=== PATIENT | female | born 1955 | race Caucasian/White ===

== ENCOUNTER 2020-05-08 16:11 | Outpatient (REF) | payer MEDICARE, MEDICAID, SELFPAY | END 2020-05-08 16:12 | disposition home or self-care (01) | LOC: HO.LAB 16:11 | PROVIDERS: PCP Internal Medicine; Visit Provider Internal Medicine | DX: Z20.828 Contact with and (suspected) exposure to other viral communicable diseases (principal) | CPT/HCPCS: C9803; U0003 ==

== ENCOUNTER 2020-05-14 12:07 | Day surgery (SDC) | payer MEDICARE, MEDICAID, SELFPAY ==
[2020-05-07 09:08] VITALS: BMI 32.1
[2020-05-14 12:21] VITALS: BP 114/64; PULSE 120; RESP 18; TEMP 36.1; O2SAT 99
[2020-05-14 12:29] LABS: Glucose, Whole Blood 205 mg/dL (60-115)
--- NOTE | 2020-05-14 13:34 | HO.ANESPROP2 ---
[facility] Past Medical History Medical History (Updated 05/07/20 @ 09:14 by Alexandra Worley) Arthritis CAD (coronary artery disease) COPD (chronic obstructive pulmonary disease) CVA (cerebral vascular accident) Diabetes Elevated cholesterol GERD (gastroesophageal reflux disease) History of headache HTN (hypertension) Hx of osteopenia Hx of solitary pulmonary nodule On beta manolo at home Surgical History Surgical History (Updated 05/07/20 @ 09:14 by Alexandra Worley) H/O colonoscopy History of PTCA Hx of appendectomy Hx of cataract extraction Hx of section Hx of cholecystectomy Hx of heart artery stent Social History Social History (Updated 05/07/20 @ 09:17 by Alexandra Worley) Smoking Status: Former smoker Tobacco Type: Cigarette Packs Per Day: 1 Cigarettes Per Day: 20.0 Years Smoked: 30 Smoked in Last 30 Days: No Smoking Quit Date: age 39 Advance Directives Information Provided: No Meds Allergies Allergy/AdvReac Type Severity Reaction Status Date / Time morphine [MORPHINE] Allergy Severe HIVES AND Verified 05/07/20 09:17 DIFFICULTY BREATHING, dyspnea, rash Penicillins Allergy Intermediate ITCHING Verified 05/07/20 09:17 Home Medications Medication Instructions Recorded Confirmed Type albuterol sulfate [ProAir HFA] 2 puff INHALATION Q4-6H PRN 05/07/20 05/07/20 History amitriptyline 50 mg PO BEDTIME 05/07/20 05/07/20 History aripiprazole 5 mg PO DAILY 05/07/20 05/07/20 History aspirin 81 mg PO DAILY 05/07/20 05/07/20 History cholecalciferol (vitamin D3) 50 mcg PO DAILY 05/07/20 05/07/20 History [Vitamin D3] docusate sodium 100 mg PO BID 05/07/20 05/07/20 History gabapentin 600 mg PO BEDTIME 05/07/20 05/07/20 History insulin glargine [Lantus Solostar 45 unit SUBCUT QPM 05/07/20 05/07/20 History U-100 Insulin] insulin lispro [Humalog KwikPen 9 unit SUBCUT TID 05/07/20 05/07/20 History Insulin] melatonin 5 mg PO BEDTIME PRN 05/07/20 05/07/20 History metformin 500 mg PO BID 05/07/20 05/07/20 History metoprolol tartrate 50 mg PO BID 05/07/20 05/07/20 History sennosides [senna] 8.6 mg PO BEDTIME 05/07/20 05/07/20 History sitagliptin [Januvia] 100 mg PO DAILY 05/07/20 05/07/20 History tiotropium bromide [Spiriva with 1 cap INHALATION DAILY 05/07/20 05/07/20 History HandiHaler] valsartan 160 mg PO DAILY 05/07/20 05/07/20 History Exam Exam Date and Time: May 14, 2020 1334 Height,Weight and Vital Signs: Height 5 ft Weight 74.5 kg Last Vital Signs Temp 97.0 F 05/14/20 12:21 Pulse 120 H 05/14/20 12:21 Resp 18 05/14/20 12:21 BP 114/64 05/14/20 12:21 Pulse Ox 99 05/14/20 12:21 Pertinent Lab Results Pertinent Lab Results: Laboratory Tests 05/14/20 12:23 POC Glucose 205 H Airway Mallampati Class: III TM Dist: >3cm Neck ROM: Limited Loose/Missing/Broken Teeth: Yes (Missing teeth. Overbite) Heart: RRR Assessment and Plan Assessment Anesthesia Assessment: Anesthesia Plan Discussed Final Anesthetic Review NPO: Yes ASA Class: III Final Preanesthetic Review: Consent Obtained/Reviewed Anesthetic Plan Anesthetic Plan: MAC: Disposition: Standard PACU
--- NOTE | 2020-05-14 13:40 | P.HPSUR_ITS ---
Pre-Procedural Eval Section B Chief Complaint: Constipation Relevant Family History (Specify if Yes): No Relevant Social History: None Present Medications: see Short Stay Collaborative assessment Medical History: Significant History (asthma, COPD, Dm, CAD, abn LFT) History of Previous Operations: Relevant previous surgery/procedure and date(s) (appendectomy, choelcystectomy) Allergies: Allergies Allergy/AdvReac Type Severity Reaction Status Date / Time morphine [MORPHINE] Allergy Severe HIVES AND Verified 05/07/20 09:17 DIFFICULTY BREATHING, dyspnea, rash Penicillins Allergy Intermediate ITCHING Verified 05/07/20 09:17 Review of Systems Sugical H&P ROS: Negative: Constitution, Cardiovascular, Respiratory, Neurological, Psychiatric, Hem-Onc, Allergic/Immunologic, Gastrointestinal, Genitourinary, Musculoskeletal, Integumentary, Endocrine and Eyes/Ears /Nose/Throat Exam Surgical H&P Exam: Normal: HEENT, Normal: Heart, Normal: Lungs, Normal: Extremities, Normal: Abdomen, Normal: Skin and Normal: Neurological Plan Diagnosis/Plan: Unchanged Patient has been examined and remains a candidate for the planned procedure
--- NOTE | 2020-05-14 14:20 | PM.OP ---
Brief Operative Note Date of Service: 05/14/20 Pre-op diagnosis: constipation Post-op diagnosis: same Procedure: see op note Surgeon: Ludy Tovar MD Anesthesia: MAC Estimated blood loss (mL): 0 Condition: stable Disposition: PACU
--- NOTE | 2020-05-14 14:21 | W.PM.OPN ---
Operative Note Operative Note Date of Service: 05/14/20 Narrative: Operative Information Procedure Description: Colonoscopy COLONOSCOPY Instrument: Olympus variable stiffness pediatric scope 190L Colonoscopy Monitoring: Vital signs and clinical assessment, continuous EKG monitoring, Pulse oximetry, Carbon Dioxide monitoring and blood pressure monitoring were done throughout the procedure. Colon withdrawal time was 9 minutes. Procedure: The patient was placed in the left lateral decubitis position and pre-procedure medications were administered. After a digital rectal examination of the ano-rectum, the video colonoscope was inserted into the rectum and advanced through the colon to the cecum. The colonoscope was slowly withdrawn in a retrograde panoramic fashion and the colon mucosa was carefully examined including a retroflexed view of the rectum. Findings and interventions are described below. Procedure Difficulty: slightly difficult Findings: Terminal Ileum-not intubated due to fecal debris making it hard to identify Cecum: abnormal scarred appearing mucosa, with granularity, bx taken Ascending Colon: abnormal scarred appearing mucosa, with granularity Transverse Colon -normal Descending Colon:normal Sigmoid Colon: normal Rectum: Retroflexion with small internal hemorrhoids, grade I Anorectum - normal There was marked absence of peristalsis, and colon appeared redundant. Colon preparation: [place] Bowel Preparation Scale Right colon; 1 Transverse colon: 0 Left colon; 0 (0 = Unprepared colon segment with mucosa not seen due to solid stool that cannot be cleared. 1 = Portion of mucosa of the colon segment seen, but other areas of the colon segment not well seen due to staining, residual stool and/or opaque liquid. 2 = Minor amount of residual staining, small fragments of stool and/or opaque liquid, but mucosa of colon segment seen well. 3 = Entire mucosa of colon segment seen well with no residual staining, small fragments of stool or opaque liquid) Impression and Post Procedure Diagnosis: redundant colon atrophic mucosa right colon, colonic inertia Plan: High fiber diet leaflet Avoid straining at stool, epsom salts and sitz bath, anusol supps or cream prn Repeat Colonoscopy in 6-12 months, may need 2 d clears She may benefit from motegrity for her constipation, may have a colonopathy from her DM Above findings were reviewed with the patient and relevant handouts were provided if indicated.
[2020-05-14 14:26] VITALS: BP 99/52; PULSE 103; RESP 16; TEMP 36.5; O2SAT 96
[2020-05-14 14:41] VITALS: BP 91/56; PULSE 99; RESP 22; TEMP 36.5; O2SAT 96
--- NOTE | 2020-05-15 09:43 | HO.POSTANES ---
Post Anesthesia Evaluation Post Anesthesia Evaluation Vital Signs: Case done on 05/14 and discharge was done on paper now being transferred to computer, Vitals were stable. Anesthesia: Monitored Mental Status: Awake Pain Control: Satisfactory Nausea/Vomiting: None Hydration: Adequate Anesthesia-Related Issues: No Anes. Related Issues
== END 2020-05-14 15:17 | disposition home or self-care (01) ==
PROVIDERS: PCP Internal Medicine; Visit Provider Internal Medicine Gastroenterology
PROC: 0DJD8ZZ Inspection of Lower Intestinal Tract, Via Natural or Artificial Opening Endoscopic (ICD-10-PCS; CPT 45378; principal; 2020-05-14 13:20)
DX: K59.00 Constipation, unspecified (principal); Q43.8 Other specified congenital malformations of intestine; K64.0 First degree hemorrhoids; K63.89 Other specified diseases of intestine; R94.5 Abnormal results of liver function studies; J44.9 Chronic obstructive pulmonary disease, unspecified; I25.10 Atherosclerotic heart disease of native coronary artery without angina pectoris; Z98.61 Coronary angioplasty status; I10 Essential (primary) hypertension; E11.9 Type 2 diabetes mellitus without complications; K21.9 Gastro-esophageal reflux disease without esophagitis; Z79.4 Long term (current) use of insulin; Z79.51 Long term (current) use of inhaled steroids; Z79.82 Long term (current) use of aspirin; Z79.899 Other long term (current) drug therapy; Z88.8 Allergy status to other drugs, medicaments and biological substances; Z86.73 Personal history of transient ischemic attack (TIA), and cerebral infarction without residual deficits; Z87.891 Personal history of nicotine dependence
CPT/HCPCS: 45380; 82947; 88305

== ENCOUNTER 2020-05-28 16:59 | Outpatient (REF) | payer MEDICARE, MEDICAID, SELFPAY | END 2020-05-28 17:00 | disposition home or self-care (01) | LOC: HO.LAB 16:59 | PROVIDERS: PCP Internal Medicine; Visit Provider Internal Medicine | DX: Z20.828 Contact with and (suspected) exposure to other viral communicable diseases (principal) | CPT/HCPCS: C9803; U0003 ==

== ENCOUNTER 2020-07-22 11:53 | Outpatient (REF) | payer MEDICARE, MEDICAID, SELFPAY ==
--- NOTE | 2020-07-22 12:00 | XR_ITS ---
EXAMINATION: XR HIP, BILATERAL CLINICAL INFORMATION: Pain in bilateral hips. COMPARISON: Bilateral hip 03/21/2020 TECHNIQUE: Two views each hip. FINDINGS: RIGHT HIP: There is no visible fracture, dislocation or subluxation seen. No bony erosive changes. The soft tissues are normal. LEFT HIP: There is no visible acute fracture, dislocation or subluxation seen. The soft tissues are normal. XR/XR hip LT min 2V IMPRESSION: Unremarkable bilateral hip exam. No change from previous study 03/21/2020.
--- NOTE | 2020-07-22 12:00 | XR_ITS ---
EXAMINATION: XR HIP, BILATERAL CLINICAL INFORMATION: Pain in bilateral hips. COMPARISON: Bilateral hip 03/21/2020 TECHNIQUE: Two views each hip. FINDINGS: RIGHT HIP: There is no visible fracture, dislocation or subluxation seen. No bony erosive changes. The soft tissues are normal. LEFT HIP: There is no visible acute fracture, dislocation or subluxation seen. The soft tissues are normal. XR/XR hip RT min 2V IMPRESSION: Unremarkable bilateral hip exam. No change from previous study 03/21/2020.
[2020-07-22 14:37] LABS: Alanine Aminotransferase 49 U/L (0-31); Albumin Level 3.7 g/dL (3.5-5.0); Alkaline Phosphatase 116 U/L (39-117); Anion Gap 15 (12-20); Aspartate Amino Transferase 43 U/L (5-31); Bilirubin Total 0.4 mg/dL (0.0-1.0); Blood Urea Nitrogen 17 mg/dL (9-16); Calcium 9.7 mg/dL (8.4-10.2); Carbon Dioxide 29 mmol/L (22-29); Chloride 100 mmol/L (96-108); Cholesterol 81 mg/dL; Estimated Glomerular Filt Rate > 60; Glucose Fasting 173 mg/dL (60-99); HDL Cholesterol 27 mg/dL; LDL Cholesterol Calculated 36 mg/dl; Potassium 4.4 mmol/l (3.3-5.1); Sodium 140 mmol/L (135-145); Total Protein 7.4 g/dL (6.5-8.0); Triglycerides 93 mg/dL
[2020-07-22 14:39] LABS: Creatinine Urine 168.42 mg/dL; Microalbum/Creatinine Ratio Ur 42.1 ug/mg cr
== END 2020-07-22 11:54 | disposition home or self-care (01) ==
LOC: HO.LAB 11:53
PROVIDERS: PCP Internal Medicine; Visit Provider Internal Medicine
DX: M25.552 Pain in left hip (principal); M25.551 Pain in right hip; E11.9 Type 2 diabetes mellitus without complications; E78.5 Hyperlipidemia, unspecified
CPT/HCPCS: 36415; 73502; 80053; 80061; 82043

== ENCOUNTER → 2020-08-16 14:38 | Outpatient (REF) | payer MEDICARE, MEDICAID, SELFPAY ==
--- NOTE | 2020-08-16 15:00 | CA_ITS ---
Transthoracic Echocardiogram Patient (Last, First, Middle): Lillie Clemons, Gender: Female Date of : 1955 Age: 65 Procedure Date: 08/16/2020 Procedure Type: Transthoracic Echocardiogram Location: OP Height: 193.04 cm Weight: 72.58 kg BSA: 2.02 m2 Heart Rate: bpm BP: 122 / 60 mmHg Register In [place]cery: Referring MD: Gonzales Rutledge MD Symptoms: I25.10 ASCD Z95.5 STENTED COR ART, I10 HTN I51.9 DIASTOLIC D Study Quality: Good ECG Rhythm: Sinus Conclusions: - Normal left ventricular size and systolic function. - Abnormal diastolic function is noted. Spectral Doppler is indicative of an impaired relaxation filling pattern. Elevated filling pressures. - There is mild aortic valve stenosis. There is mild aortic valve regurgitation. - Mild pulmonary hypertension is present. Findings Left Ventricle Normal left ventricular size and systolic function. There is mildly increased left ventricular wall thickness. The visually estimated ejection fraction is between 60-65%. There is no evidence of regional wall motion abnormalities. Abnormal diastolic function is noted. Spectral Doppler is indicative of an impaired relaxation filling pattern. Elevated filling pressures. Right Ventricle Normal right ventricular cavity size and systolic function. Atria Both atria are normal in size. There is no evidence of interatrial shunt by color Doppler. Aortic Valve There is a normal trileaflet aortic valve. There is mild calcification of the aortic valve. There is mild aortic valve stenosis. There is mild aortic valve regurgitation. Mitral Valve Normal mitral valve structure and function. There is no mitral valve regurgitation. There is no mitral valve stenosis. Pulmonic Valve The pulmonic valve is likely normal. Tricuspid Valve Normal tricuspid valve structure and function. There is mild tricuspid valve regurgitation. Normal right atrial pressure. Mild pulmonary hypertension is present. Great Vessels All visible segments of the aorta are normal in size. The pulmonary artery was not well visualized. Venous The inferior vena cava is normal in size and collapses greater than 50% with inspiration. Pericardium/Pleural There is no evidence of pericardial effusion. Prior Study Comparison Changes noted compared to prior study dated: 08/05/2016. Mild , mild AR, mild LVH and elevated filling pressures. Mild pulmonary hypertension. Measurements 2D Linear Measurements IVSd: 1.20 0.6-0.9/0.6-1.0 cm LVIDd: 4.06 3.9-5.3/4.2-5.9 cm LVIDd Index: 2.01 2.4-3.2/2.2-3.1 cm/m2 LVIDs: 2.71 2.0-3.6 cm LVPWd: 1.20 0.7-1.1 cm Ao Root: 2.80 2.1-3.5 cm LA Diam: 3.80 2.7-3.8/3.0-4.0 cm LAIDs Index: 1.88 1.5-2.3 cm/m2 LV Mass: 210.77 67-162/88-224 g LV Mass Index: 104.34 43-95/49-115 g/m2 LVOT Diam: 2.00 3.0+(-)1.3 cm Mitral Valve MV Pk E: 0.67 MV PK A: 1.21 MV Decel Time: 92.00 E/A: 0.60 E'Lateral: 3.29 E'Medial: 4.74 E/E' Med: 14.10 E/E' Lat: 20.30 PHT: 27.00 MVA PHT: 8.15 Decel [place]: 7.24 Aortic Valve AoV Pk Esvin: 2.04 AoV Mn Esvin: 1.36 AoV VTI: 0.37 AoV Pk Grad: 17.00 Aov Mn Grad: 9.00 LUCÍA Cont.VTI: 1.65 AI Pk Esvin: 4.14 AI [place]: 4.56 LVOT LVOT Pk Esvin: 0.98 LVOT Mn Esvin: 0.63 LVOT VTI: 0.19 LVOT Pk Grad: 4.00 LVOT Mn Grad: 2.00 LVOT Diam: 2.00 LVOT Area: 3.14 Diastolic Function MV Pk E: 0.67 MV Pk A: 1.21 E/A: 0.60 E'Medial: 4.74 E/E' Med: 14.10 E' Laterial: 3.29 E/E' Lat: 20.30 Tricuspid Valve TR Pk Esvin: 2.86 TR Pk Grad: 33.00 RA Press: 3.00 RVSP: 36.00 Great Vessels Aorta Ao Root-2D: 2.80 2.0-3.7 cm Ao Asc: 3.00 2.1-3.4 cm Pulmonary Valve PV Pk Esvin: 0.84 Peak PV Grad: 3.00 Updated in Other Vendor System with Status of Final David Meléndez MD electronically signed on 08/18/2020 2:15:18 PM with status of Final
== END ==
LOC: HO.CARD 14:38
PROVIDERS: Visit Provider Internal Medicine
DX: I11.0 Hypertensive heart disease with heart failure (principal); I11.9 Hypertensive heart disease without heart failure; Z95.5 Presence of coronary angioplasty implant and graft
CPT/HCPCS: 93306

== ENCOUNTER → 2020-09-02 13:29 | Outpatient (BNVA) | payer MEDICARE, MEDICAID, SELFPAY | PROVIDERS: PCP Internal Medicine; Visit Provider Internal Medicine ==

== ENCOUNTER → 2020-09-26 12:00 | Outpatient (BNVA) | payer MEDICARE, MEDICAID, SELFPAY | PROVIDERS: PCP Internal Medicine; Visit Provider Internal Medicine Endocrinology, Diabetes & Metabolism | DX: E11.65 Type 2 diabetes mellitus with hyperglycemia (principal); Z79.4 Long term (current) use of insulin; E11.42 Type 2 diabetes mellitus with diabetic polyneuropathy; E78.5 Hyperlipidemia, unspecified; I10 Essential (primary) hypertension; E04.2 Nontoxic multinodular goiter | CPT/HCPCS: 82947; 99212 ==

== ENCOUNTER → 2020-10-24 14:35 | Outpatient (BNVA) | payer MEDICARE, MEDICAID, SELFPAY | PROVIDERS: PCP Internal Medicine; Referring Provider Internal Medicine; Visit Provider Internal Medicine | DX: I25.10 Atherosclerotic heart disease of native coronary artery without angina pectoris (principal); I10 Essential (primary) hypertension; E11.8 Type 2 diabetes mellitus with unspecified complications; I35.0 Nonrheumatic aortic (valve) stenosis | CPT/HCPCS: 93005; 99212 ==

== ENCOUNTER → 2020-11-08 14:26 | Outpatient (BNVA) | payer MEDICARE, MEDICAID, SELFPAY | PROVIDERS: PCP Internal Medicine; Visit Provider Internal Medicine Endocrinology, Diabetes & Metabolism | DX: E11.65 Type 2 diabetes mellitus with hyperglycemia (principal); E11.42 Type 2 diabetes mellitus with diabetic polyneuropathy; Z79.4 Long term (current) use of insulin; E78.5 Hyperlipidemia, unspecified; I10 Essential (primary) hypertension; E04.2 Nontoxic multinodular goiter | CPT/HCPCS: Q3014 ==

== ENCOUNTER → 2020-12-27 10:07 | Outpatient (BNVA) | payer MEDICARE, MEDICAID, SELFPAY | PROVIDERS: PCP Internal Medicine; Visit Provider Internal Medicine Endocrinology, Diabetes & Metabolism | DX: E11.65 Type 2 diabetes mellitus with hyperglycemia (principal); E11.42 Type 2 diabetes mellitus with diabetic polyneuropathy; E78.5 Hyperlipidemia, unspecified; E04.2 Nontoxic multinodular goiter; I10 Essential (primary) hypertension; Z79.4 Long term (current) use of insulin | CPT/HCPCS: 82947; 99212 ==

== ENCOUNTER 2021-03-12 14:02 | Outpatient (REF) | payer MEDICARE, MEDICAID, SELFPAY ==
--- NOTE | ~2021-03-12 | XR_ITS ---
EXAMINATION: XR HIP, RIGHT CLINICAL INFORMATION: Pain right hip. COMPARISON: None TECHNIQUE: Two views of the right hip. FINDINGS: The right hip joint space is maintained normal. No visible fracture, dislocation or loose body seen. There are small enthesophytes along the right greater trochanter. The soft tissues are normal. XR/XR hip RT min 2V IMPRESSION: Unremarkable right hip exam.
== END 2021-03-12 14:03 | disposition home or self-care (01) ==
LOC: HO.HMGCX 14:02
PROVIDERS: PCP Internal Medicine; Visit Provider Internal Medicine
DX: Z13.89 Encounter for screening for other disorder (principal)
CPT/HCPCS: 73502

== ENCOUNTER 2021-03-26 15:55 | Inpatient (IN) | payer OTHER, SELFPAY ==
[2021-03-26] VITALS (12 sets, daily range): BP systolic 105–153; BP diastolic 52–77; PULSE 97–110; RESP 20–36; TEMP 36.8–37.6; O2SAT 60–100; BMI 32.2
--- NOTE | ~2021-03-26 | XR_ITS ---
EXAMINATION: XR CHEST CLINICAL INFORMATION: Dyspnea COMPARISON: Previous chest x-rays most recent from earlier the same day TECHNIQUE: Frontal view of the chest was obtained. FINDINGS: The cardiac and mediastinal contours are stable. The lung volumes are low. There is bilateral diffuse airspace disease, left greater than right. This does not appear appreciably changed from chest x-ray from earlier the same day however is increased from yesterday's exam. There is no pleural effusion or pneumothorax. Bony structures are unremarkable. XR/XR chest 1V IMPRESSION: Bilateral diffuse airspace disease, left greater than right, not appreciably changed from earlier today.
--- NOTE | ~2021-03-26 | CT_ITS ---
EXAMINATION: CT HEAD WITHOUT CONTRAST CLINICAL INFORMATION: Aphasia. COMPARISON: None TECHNIQUE: Contiguous axial imaging was performed from the skull base to vertex without intravenous administration of contrast. Limited study with motion artifacts. This CT examination was performed using dose optimization techniques as appropriate, variously including the following: *Automated exposure control *Adjustment of mA and/or kV according to patient size (this includes techniques or standardized protocols for targeted exams where dose is matched to indication/reason for exam; i.e. extremities or head) *Use of iterative reconstruction technique DLP: 533 mGy-cm FINDINGS: There is no evidence of acute intracranial hemorrhage or territorial infarction. No abnormal mass effect or midline shift is seen. [place] to white matter differentiation is well preserved. No extra-axial fluid collections are identified. Generalized parenchymal volume loss noted with concordant ex vacuo dilatation of the ventricles and mild small vessel ischemic changes. The osseous structures and soft tissues are normal. The mastoid air cells and visualized portions of the paranasal sinuses are well aerated. CT/CT head/brain wo con IMPRESSION: No acute intracranial pathology.
--- NOTE | ~2021-03-26 | XR_ITS ---
EXAMINATION: XR CHEST CLINICAL INFORMATION: Hypoxia COMPARISON: Previous chest x-ray 03/29/2021 TECHNIQUE: Frontal view of the chest was obtained. FINDINGS: There is an endotracheal tube with tip 4 cm above the eileen. There is a nasogastric tube with tip projecting over the proximal stomach. There is a right jugular line tip projecting over the SVC. The cardiac and mediastinal contours are stable. The lumbar are low. There is diffuse airspace disease, probably not appreciably changed from 03/29/2021 exam. There is no pleural effusion. There is no pneumothorax. No acute bone abnormality is seen. XR/XR chest 1V IMPRESSION: Satisfactory position of support line and tubes. No change in bilateral diffuse airspace disease.
--- NOTE | ~2021-03-26 | XR_ITS ---
EXAMINATION: XR ABDOMEN KUB CLINICAL INDICATION: No bowel sounds. OG tube placement. COMPARISON: 07/07/2016 TECHNIQUE: AP view of the abdomen. FINDINGS: Enteric tube terminates in the stomach. No dilated loops of bowel. Paucity of bowel gas. Large volume of stool throughout the colon. Catheter overlies the pelvis. Right upper quadrant surgical clips. Patchy opacities at the left lung base. Degenerative changes of the spine. XR/XR KUB IMPRESSION: Nonobstructive bowel gas pattern. Large colonic stool burden. Enteric tube terminates over the stomach.
--- NOTE | ~2021-03-26 | XR_ITS ---
EXAMINATION: XR CHEST CLINICAL INFORMATION: Worsening hypoxia COMPARISON: Previous chest x-rays most recent 04/19/2021 TECHNIQUE: Frontal view of the chest was obtained. FINDINGS: The lung volumes are low. The cardiac and mediastinal contours are stable. There is increasing bilateral airspace disease compared to 04/19/2021 exam. Differential would include worsening pneumonia and pulmonary edema. The previously identified right jugular line and feeding tube have been removed. There is no pleural effusion or pneumothorax. There are degenerative changes of the spine and shoulders. XR/XR chest 1V IMPRESSION: Low lung volumes and worsening bilateral multilobar airspace disease. Differential would include pneumonia and pulmonary edema.
--- NOTE | ~2021-03-26 | XR_ITS ---
EXAMINATION: XR CHEST CLINICAL INFORMATION: KO FEED Placement. COMPARISON: Chest radiograph done on 04/06/2021. TECHNIQUE: Frontal view of the chest was obtained. FINDINGS: The tip of the new feeding tube is projecting within the right mid abdomen either localized to the distal part of the pylorus or proximal part of the duodenum up. The right IJ central line tip is projecting at the cavoatrial junction. Bilateral patchy airspace disease is present, overall appear unchanged. The cardiac mediastinal silhouette is within normal limits. No evidence of any pleural effusion or pneumothorax. XR/XR chest 1V IMPRESSION: 1. The tip of the newly placed feeding tube is seen projecting within the right mid abdomen either within the distal part of the pylorus or proximal part of the duodenum and is projecting superiorly. 2. Patchy bilateral airspace disease, similar to prior study. 3. The right IJ central line tip is projecting at the cavoatrial junction and is unchanged.
--- NOTE | ~2021-03-26 | XR_ITS ---
EXAMINATION: XR CHEST CLINICAL INFORMATION: Follow-up lung opacities after diuresis COMPARISON: Previous chest x-ray most recent 04/25/2021 TECHNIQUE: Frontal view of the chest was obtained. FINDINGS: The cardiac and mediastinal contours are stable. The lung volumes are low lobe. There is bilateral multilobar airspace disease, greatest at the left lung base. This does not appear appreciably changed from 04/25/2021 chest x-ray. There is no significant pleural effusion. There is no pneumothorax. There are degenerative changes of the spine. XR/XR chest 1V IMPRESSION: No change in low lung volumes and bilateral multilobar airspace disease from most recent exam 04/25/2021.
--- NOTE | ~2021-03-26 | XR_ITS ---
EXAMINATION: XR CHEST CLINICAL INFORMATION: Pneumonia. COMPARISON: None TECHNIQUE: Frontal view of the chest was obtained. FINDINGS: The lungs are well-expanded with patchy opacity in the right upper lung and left mid lobe consistent with infiltrates. The right upper lobe infiltrate is new. There is a right jugular central venous catheter with its tip in the mid SVC. A feeding tube is noted with its tip below the diaphragm the stomach. Heart size and perivascular is normal. No gross bony abnormality seen. XR/XR chest 1V IMPRESSION: New patchy infiltrate right upper lobe. Left midlung infiltrate is stable.
--- NOTE | ~2021-03-26 | XR_ITS ---
EXAMINATION: XR CHEST CLINICAL INFORMATION: Hypoxic COMPARISON: CT chest 02/20/2020 TECHNIQUE: Frontal view of the chest was obtained. FINDINGS: Lung volumes are low and there are new diffuse multifocal infiltrates present throughout the lungs. No definite pleural effusions seen. Heart size within normal limits allowing for technique. XR/XR chest 1V IMPRESSION: Commonly reported imaging features of Covid 19 or viral pneumonia are present. Other processes such as influenza pneumonia or organizing pneumonia, as can be seen with drug toxicity and connective tissue disease, can cause a similar imaging pattern. CHF is felt to be less likely.
--- NOTE | ~2021-03-26 | XR_ITS ---
EXAMINATION: XR CHEST CLINICAL INFORMATION: Shortness of breath, tachycardia. COMPARISON: 05/01/2021 portable chest. TECHNIQUE: Frontal view of the chest was obtained. FINDINGS: Persistent mild pulmonary vascular prominence and patchy opacities with minimal interval decrease. The heart and mediastinal structures are significantly changed. XR/XR chest 1V IMPRESSION: Minimal interval decrease in bilateral pulmonary opacities with similar distribution.
--- NOTE | ~2021-03-26 | XR_ITS ---
EXAMINATION: XR CHEST CLINICAL INFORMATION: Hypoxia COMPARISON: CR 04/12/2021 TECHNIQUE: Frontal view of the chest was obtained. FINDINGS: Right internal jugular catheter terminating projection with the approximate location of the cavoatrial junction. Enteric tube coursing in part beyond the inferior margin the [id number] terminating in the region of the right upper abdominal quadrant. Multifocal patchy airspace opacities unchanged. No effusions. No pneumothoraces. Normal cardiomediastinal silhouette. XR/XR chest 1V IMPRESSION: -Unchanged multifocal airspace disease the lungs compared with 04/12/2021. -Right internal jugular catheter terminating in the region of the cavoatrial junction. -Partially visualized enteric tube terminating within the right upper abdominal quadrant.
--- NOTE | ~2021-03-26 | XR_ITS ---
EXAMINATION: XR CHEST CLINICAL INFORMATION: Hypoxia. COMPARISON: Chest radiograph dated from 04/27/2021. TECHNIQUE: AP view of the chest was obtained. FINDINGS: Increased multifocal patchy airspace opacities. Bilateral pleural effusions are similar to slightly increased as well. No definite pneumothorax. Stable appearance of the cardiomediastinal silhouette which is suboptimally evaluated due to overlying airspace disease. No acute osseous abnormalities. XR/XR chest 1V IMPRESSION: Worsening bilateral patchy airspace opacities and also slightly increased bilateral pleural effusions.
--- NOTE | ~2021-03-26 | XR_ITS ---
EXAMINATION: XR CHEST CLINICAL INFORMATION: Shortness of breath COMPARISON: 03/26/2021 TECHNIQUE: Frontal view of the chest was obtained. FINDINGS: Lung volumes are low. Bilateral airspace opacities are noted, mildly increased from prior. No pleural effusion or pneumothorax. The cardiomediastinal silhouette is within normal limits. XR/XR chest 1V IMPRESSION: Worsening bilateral airspace opacities.
--- NOTE | ~2021-03-26 | US_ITS ---
EXAMINATION: US VENOUS ULTRASOUND WITH DOPPLER LOWER EXTREMITY, BILATERAL CLINICAL INFORMATION: Bilateral lower extremity pain. COMPARISON: None TECHNIQUE: Ultrasound of the deep veins is performed from the hip to the calf with compression sonography and color and pulse Doppler assessment. Spectral analysis with color-flow imaging is performed. FINDINGS: RIGHT: There is normal venous compression and respiratory variation and augmented flow. The visualized common femoral vein, superficial femoral vein, profunda femoral vein, popliteal vein, and the trifurcation region shows no evidence of deep venous thrombosis. There is no significant popliteal fossa cyst. LEFT: There is normal venous compression and respiratory variation and augmented flow. The visualized common femoral vein, superficial femoral vein, profunda femoral vein, popliteal vein, and the trifurcation region shows no evidence of deep venous thrombosis. There is no significant popliteal fossa cyst. If the patient's symptoms persist, followup ultrasound in 5 days 7 days might be of value to exclude proximal propagation from a non-visualized calf vein. US/US venous duplex LE BI IMPRESSION: No DVT demonstrated in the bilateral lower extremities.
--- NOTE | ~2021-03-26 | XR_ITS ---
EXAMINATION: XR CHEST CLINICAL INFORMATION: Change of ET tube. COMPARISON: 04/04/2021 at 5:30 AM TECHNIQUE: Frontal view of the chest was obtained. FINDINGS: ET tube terminates 3.4 cm from the eileen. Right IJ central venous catheter is unchanged, terminating in the mid SVC. EKG leads overlie the chest. Surgical clips are present in the right upper quadrant. Gastric decompression tube extends into the stomach. Lung volumes are borderline low. Bronchial wall thickening is again noted. This congestion is noted. No dense airspace consolidation, pneumothorax, pleural effusion. Cardiac and mediastinal contours are normal. Osteoarthritis is present in the acromioclavicular and glenohumeral joints. Degenerative disc disease in the thoracic spine. XR/XR chest 1V IMPRESSION: ET tube terminates 3.4 cm from the eileen. Persistent bronchial wall thickening and pulmonary venous congestion.
--- NOTE | ~2021-03-26 | XR_ITS ---
EXAMINATION: XR CHEST CLINICAL INFORMATION: Covid. Hypoxia. COMPARISON: 04/04/2021 TECHNIQUE: Frontal view of the chest was obtained. FINDINGS: The endotracheal tube terminates 3.5 cm above the eileen. Enteric tube extends into the stomach. Right internal jugular central venous catheter terminates over the lower SVC. Cardiac leads overlie the chest. The lungs are well expanded. Bronchial wall thickening is present. No dense consolidation. No pleural effusion or pneumothorax. The cardiomediastinal silhouette is unchanged. XR/XR chest 1V IMPRESSION: Endotracheal tube terminates 3.5 cm above the eileen. Similar appearance of the lungs with bronchial wall thickening present.
--- NOTE | ~2021-03-26 | XR_ITS ---
EXAMINATION: XR CHEST CLINICAL INFORMATION: Covid. Hypoxemia. COMPARISON: 04/02/2021 TECHNIQUE: Frontal view of the chest was obtained. FINDINGS: The endotracheal tube terminates 3.5 cm above the eileen. Enteric tube extends into the stomach. Right internal jugular central venous catheter terminates over the mid SVC. Cardiac leads overlie the chest. The lungs are well expanded. Bronchial wall thickening noted. Decreased central vascular prominence. No dense consolidation. No pleural effusion or pneumothorax. The cardiomediastinal silhouette is unchanged. XR/XR chest 1V IMPRESSION: Endotracheal tube terminates 3.5 cm above the eileen. Decreased central vascular prominence. Bronchial wall thickening noted. No dense consolidation.
--- NOTE | ~2021-03-26 | XR_ITS ---
EXAMINATION: XR CHEST CLINICAL INFORMATION: Status post intubation. COMPARISON: 03/27/2021 portable chest. TECHNIQUE: Frontal view of the chest was obtained. FINDINGS: Support devices: Endotracheal tube is positioned approximately 3 cm proximal to eileen. A right-sided central venous catheter seen with tip terminating in the superior vena cava. An enteric tube is seen with tip overlying the proximal gastric lumen. Bilateral diffuse airspace opacities are again seen with similar distribution and severity. The heart and mediastinal structures are unremarkable. XR/XR chest 1V IMPRESSION: 1. Support devices as detailed above. 2. Bilateral airspace opacities without significant change. These are nonspecific, but could be cardiogenic. An infectious/infiltrate process would be less likely but cannot be excluded.
--- NOTE | ~2021-03-26 | XR_ITS ---
EXAMINATION: XR CHEST CLINICAL INFORMATION: Hypoxia. COMPARISON: 04/01/2021 TECHNIQUE: Frontal view of the chest was obtained. FINDINGS: Endotracheal tube terminates 3.5 cm above the eileen. Enteric tube extends into the stomach. Right internal jugular central venous catheter terminates over the lower SVC. Cardiac leads overlie the chest. The lungs are well expanded. Central vascular prominence noted without overt edema. No dense consolidation. No effusion. No pneumothorax. The cardiomediastinal silhouette remains prominent. XR/XR chest 1V IMPRESSION: Endotracheal tube terminates 3.5 cm above the eileen. Central vascular prominence without overt edema.
--- NOTE | ~2021-03-26 | CT_ITS ---
EXAMINATION: CT HEAD WITHOUT CONTRAST CLINICAL INFORMATION: Aphasia COMPARISON: 06/18/2016 TECHNIQUE: Contiguous axial imaging was performed from the skull base to vertex without intravenous contrast. This CT examination was performed using dose optimization techniques as appropriate, variously including the following: * Automated exposure control * Adjustment of mA and/or kV according to patient size (this includes techniques or standardized protocols for targeted exams where dose is matched to indication/reason for exam; i.e. extremities or head) Use of iterative reconstruction technique DLP: 597 mGy-cm. FINDINGS: There is no evidence of acute intracranial hemorrhage or territorial infarction. No abnormal mass effect or midline shift is seen. [place] to white matter differentiation is well preserved. No extra-axial fluid collections are identified. No hydrocephalus. Proportional prominence of the ventricles and sulcal spaces is consistent with mild volume loss. Patchy periventricular and deep white matter hypoattenuation is consistent with mild small vessel ischemic changes. The osseous structures and soft tissues are normal. The mastoid air cells and visualized portions of the paranasal sinuses are well aerated. CT/CT head/brain wo con IMPRESSION: No acute intracranial pathology.
--- NOTE | ~2021-03-26 | NM_ITS ---
EXAMINATION: NM LUNG IMAGE PERFUSION CLINICAL INFORMATION: Hypoxia. COMPARISON: Chest x-ray 03/27/2021 TECHNIQUE: Following intravenous administration of 4 mCi of 90 9M technetium and a 8, imaging of both lungs were obtained in multiple projection. No ventilation study was obtained. FINDINGS: On perfusion exam there is normal flow seen to all segments of the lungs with no defect. NM/NM pul perfusion IMPRESSION: Normal perfusion study of both lungs with no segmental or subsegmental defects.
--- NOTE | ~2021-03-26 | XR_ITS ---
EXAMINATION: XR CHEST CLINICAL INFORMATION: Covid COMPARISON: 04/05/2021 TECHNIQUE: Frontal view of the chest was obtained. FINDINGS: Endotracheal tube terminates 2 cm above the eileen. Enteric tube extends into the stomach. Right internal jugular central venous catheter terminates over the lower SVC. Cardiac leads overlie the chest. Lung volumes are low. Patchy opacities are seen faintly at the left lower to mid lung. Bronchial wall thickening. No pleural effusion or pneumothorax. The cardiomediastinal silhouette is unchanged. XR/XR chest 1V IMPRESSION: Endotracheal tube terminates 2 cm above the eileen. Persistent bronchial wall thickening with faintly increased patchy opacities of the left lower lung.
--- NOTE | 2021-03-26 16:36 | ECG_ITS ---
Test Reason : DYSPNEA Blood Pressure : / mmHG Vent. Rate : 104 BPM Atrial Rate : 104 BPM P-R Int : 152 ms QRS Dur : 076 ms QT Int : 348 ms P-R-T Axes : 035 013 038 degrees QTc Int : 457 ms Sinus tachycardia Nonspecific ST abnormality Abnormal ECG When compared with ECG of 07-OCT-2018 10:20, Nonspecific ST abnormality is now Present Heart rate has increased Referred By: Jessica Solis Electronically Signed By:LAKEISHA DUBON
--- NOTE | 2021-03-26 16:38 | ED_ITS ---
HPI - SOB/Dyspnea General Chief Complaint: Dyspnea Stated Complaint: covid + Time Seen by Provider: 03/26/21 16:35 Source: patient Mode of arrival: wheelchair Limitations: no limitations History of Present Illness HPI Narrative: Patient comes to the emergency room complaining severe shortness of breath that started today. Patient states that couple of days ago she was diagnosed with COVID-19. Patient states she has history of COPD, but the shortness of breath that she is feeling now, is not the same she usually experiences with COPD. Patient denies vomiting or diarrhea. On arrival to the emergency room triage, patient was noted to have an oxygen saturation in the high 60s on room air. MD elicited complaint: shortness of breath Related Data Home Medications Medication Instructions Recorded Confirmed aripiprazole 5 mg tablet 5 mg PO DAILY 05/07/20 03/26/21 aspirin 81 mg tablet 81 mg PO DAILY 05/07/20 03/26/21 docusate sodium 100 mg capsule 100 mg PO BID 05/07/20 03/26/21 sennosides 8.6 mg tablet (senna) 8.6 mg PO BEDTIME 05/07/20 03/26/21 lisinopril 5 mg tablet 5 mg PO DAILY 10/24/20 03/26/21 acetaminophen 325 mg tablet 650 mg PO Q6H PRN 03/26/21 03/26/21 Previous Rx's Medication Instructions Recorded amitriptyline 50 mg tablet 50 mg PO BEDTIME #90 tab 06/02/20 cholecalciferol (vitamin D3) 50 50 mcg PO DAILY 30 Days #30 cap 06/02/20 mcg (2,000 unit) capsule (Vitamin D3) melatonin 5 mg tablet 10 mg PO BEDTIME PRN 30 Days #60 06/30/20 tab atorvastatin 40 mg tablet 40 mg PO DAILY #90 tab 07/17/20 furosemide 40 mg tablet 40 mg PO DAILY #90 tab 07/30/20 albuterol sulfate 90 mcg/actuation 2 puff INHALATION Q4-6H PRN 30 08/29/20 aerosol inhaler (ProAir HFA) Days #8.5 g fluticasone propionate 50 1 spray INTRANASAL DAILY #32 ml 10/21/20 mcg/actuation nasal spray,suspension gabapentin 800 mg tablet 800 mg PO BEDTIME #90 tab 10/21/20 tiotropium bromide 18 mcg capsule 1 cap INHALATION DAILY 90 Days #90 10/21/20 with inhalation device (Spiriva inh with HandiHaler) FreeStyle Lancets 28 gauge #300 ea NS 11/08/20 (lancets) FreeStyle Lite Strips (blood sugar #300 ea NS 11/08/20 diagnostic) Humalog KwikPen Insulin 100 See Rx Instructions SUBCUT TID 90 12/27/20 unit/mL subcutaneous (insulin Days #45 ml NS lispro) Toujeo Max U-300 SoloStar 300 65 unit SUBCUT DAILY 90 Days #24 12/27/20 unit/mL (3 mL) subcutaneous ml NS insulin pen (insulin glargine U-300 conc) linagliptin 5 mg tablet (Tradjenta) 5 mg PO DAILY 90 Days #90 tab 12/27/20 metformin 500 mg tablet,extended 500 mg PO BID #180 tab 12/27/20 release 24 hr pen needle, diabetic 32 gauge x #400 ea 12/27/20 (BD Britany 2nd Gen Pen Needle) diclofenac sodium 50 mg 50 mg PO TID #90 tab 02/22/21 tablet,delayed release Allergies Allergy/AdvReac Type Severity Reaction Status Date / Time morphine [MORPHINE] Allergy Severe HIVES AND Verified 03/12/21 13:09 DIFFICULTY BREATHING, dyspnea, rash Penicillins Allergy Intermediate ITCHING Verified 03/12/21 13:09 Review of Systems Review of Systems: Constitutional : No Weight loss, No Fever, No Chills, No Night Sweats, complaining of generalized malaise ENT/Mouth : No Hearing loss, No Ear Pain, No Nasal Congestion, No Sinus Pain, No Hoarseness, complaining of sore throat, No Rhinorrhea, No Swallowing Difficulty Eyes: No Eye Pain, No Swelling, No Redness, No Foreign Body, No Discharge, No Vision Changes Cardiovascular : No Chest Pain, No SOB, No Dyspnea on Exertion, No Orthopnea, No Edema, No Palpitations Respiratory : Complaining of Cough, No Sputum, No Wheezing, No Smoke Exposure, complaining of severe dyspnea Gastrointestinal : No Nausea, No Vomiting, No Diarrhea, No Constipation, No abdominal Pain, No Hematochezia, No Melena Genitourinary : no irregular bleeding, No Dysuria, No Urinary Frequency, No Hematuria, No Urinary Incontinence, No Urgency, No Flank Pain, No Urinary Flow Changes, No Hesitancy Musculoskeletal : No joint pain, No Myalgias, No Joint Swelling Skin : No Skin Lesions, No rash Neuro : No Weakness, No Numbness, No Paresthesias, No Loss of Consciousness, No Dizziness, No Headache Psych : no Depression, No SI/HI/AH/VH, No Social Issues, Heme/Lymph: No Bruising, No Bleeding,No Lymphadenopathy Endocrine : No Polyuria, No Polydipsia, No Temperature Intolerance PMFSH Past Medical History Medical History Arthritis Atherosclerotic cardiovascular disease CAD (coronary artery disease) COPD (chronic obstructive pulmonary disease) CVA (cerebral vascular accident) Diabetes Diabetes type 2, uncontrolled Diabetic polyneuropathy associated with type 2 diabetes mellitus Dyslipidemia Essential hypertension GERD (gastroesophageal reflux disease) History of headache HTN (hypertension) Hx of osteopenia Hx of solitary pulmonary nodule 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 Sister No problems noted. Son No problems noted. Daughter No problems noted. Social History Social History Alcohol intake: current Alcohol intake frequency: holidays/special occasions only Cigarette Packs Per Day: 1 Cigarettes Per Day: 20.0 Years Smoked: 30 Advance Directives: No Advance Directives Information Provided: Yes Physical Exam Vital Signs: Vital Signs: Last Vital Signs Temp 99.2 F 03/26/21 20:01 Pulse 99 03/26/21 20:01 Resp 20 03/26/21 20:01 BP 150/68 H 03/26/21 20:01 Pulse Ox 100 03/26/21 20:01 Body Mass Index 32.2 Const: Other: Appearance: Alert. Oriented X3. Very anxious Eyes: Pupils equal, round and reactive to light. ENT: Pharynx normal. Neck: Normal inspection. Neck supple. No lymph nodes noted. No crepitus CVS: Tachycardic, Pulses normal. Normal S1 and S2 Respiratory: Moderate respiratory distress, oxygen saturation high 60s on room air Abdomen: Soft and nontender. No rigidity. No distention. Skin: Skin warm and dry. Cyanotic more noticeable around lips and distal extremities, Normal skin turgor. Extremities: No lower extremity edema. No Lacerations. No Rash Neuro: Oriented X 3. No motor deficit. No sensory deficit. Moving all extermities. No slurred speech. Course Course Course Narrative: Patient was placed on nasal cannula at 5 L, patient's oxygen saturation in the mid 70s, patient was switched to a non-rebreather, oxygen saturation is 100% on 15 L, patient started to breathe more comfortably, became less anxious. Patient was switched to a Venti mask, oxygen saturation dropped to 86%. Patient was switched back to a non-rebreather on 15 L, oxygen saturation 97% Patient's lactic acid is elevated, likely secondary to hypoxia and multiple nebulization treatments the patient used prior to arrival. It is possible that patient may be septic. However, 30 mL of fluid will not be given since the p atient has COVID. I discussed the above-mentioned with our hospitalist, who agrees that the patient should not receive 30 mL/kg. Lactic acid improved from 11.5-2.5 after IV fluids and continues oxygenation At this time, the patient cannot get a CTA to rule out PE. I discussed this with our hospitalist, patient will be given Lovenox, patient will likely need a V/Q scan in the morning Patient's glucose improved to 494 with 10 units of insulin. Patient being admitted, discussed with Dr. Stuart MDM - SOB/Dyspnea Lab Data Result diagrams: 03/26/21 16:43 03/26/21 20:04 Labs: Lab Results 03/26/21 03/26/21 03/26/21 Range/Units 16:43 16:43 16:43 WBC 11.6 H (4.8-10.8) X10*3/uL RBC 4.97 (4.20-5.50) X10*6/uL Hgb 12.3 (12.0-16.0) g/dl Hct 41.1 (37-47) % MCV 82.7 (80-98) fL MCH 24.7 L (27.0-33.0) pg MCHC 29.9 L (31.0-35.0) g/dl RDW 14.8 (11.0-16.0) % Plt Count 285 (160-400) X10*3/uL MPV 11.1 (9.4-12.3) fL Immature Gran % (Auto) 1.5 H (0.0-0.4) % Neut % (Auto) 75.2 H (45-73) % Lymph % (Auto) 15.9 L (20-40) % [place] % (Auto) 7.2 (2-11) % Eos % (Auto) 0.0 (0-4) % Baso % (Auto) 0.2 (0-2) % Lymph # (Auto) 1.8 (1.2-4.9) X10*3/uL [place] # (Auto) 0.8 (0.1-1.2) X10*3/uL Eos # (Auto) 0.0 (0.0-0.4) X10*3/uL Baso # (Auto) 0.0 (0.0-0.2) X10*3/uL Abs Immat Gran (auto) 0.17 H (0.00-0.03) X10*3/uL Absolute Neuts (auto) 8.7 H (2.0-8.3) X10*3/uL Absolute Nucleated RBC 0.000 (0.0-0.012) X10*3/uL Nucleated RBC % (auto) 0.0 (0.0-0.2) /100WBC VBG pH (7.32-7.43) VBG pCO2 mmHg VBG pO2 mmHg VBG HCO3 (22-26) mmol/L VBG O2 Saturation % VBG Base Excess mmol/L Sodium 133 L (135-145) mmol/L Potassium 4.8 (3.3-5.1) mmol/L Chloride 96 (96-108) mmol/L Carbon Dioxide 17 L (22-29) mmol/L Anion Gap 25 H (12-20) BUN 60 H D (9-16) mg/dL Creatinine 2.41 H (0.5-1.4) mg/dL Estim Creat Clear Calc 20.7 Estimated GFR 20 POC Glucose (60-115) mg/dL Random Glucose 710 H* (60-115) mg/dL Lactic Acid 11.5 H* (0.5-2.0) mmol/L Lactic Acid Fup @ 2Hr (0.5-2.0) mmol/L Calcium 8.7 D (8.4-10.2) mg/dL Total Bilirubin 0.6 (0.0-1.0) mg/dL Direct Bilirubin 0.4 (0.0-0.5) mg/dL AST 80 H (5-31) U/L ALT 43 H (0-31) U/L Alkaline Phosphatase 205 H D (39-117) U/L Troponin I High Sens (<3.5-17.0) ng/L B-Natriuretic Peptide (<100) pg/mL Total Protein 8.0 (6.5-8.0) g/dL Albumin 3.3 L (3.5-5.0) g/dL Acetone, Qual Negative (Negative) COVID-19 ([facility]) (Negative) COVID-19 Clin Com 03/26/21 03/26/21 03/26/21 Range/Units 16:43 16:43 17:13 WBC (4.8-10.8) X10*3/uL RBC (4.20-5.50) X10*6/uL Hgb (12.0-16.0) g/dl Hct (37-47) % MCV (80-98) fL MCH (27.0-33.0) pg MCHC (31.0-35.0) g/dl RDW (11.0-16.0) % Plt Count (160-400) X10*3/uL MPV (9.4-12.3) fL Immature Gran % (Auto) (0.0-0.4) % Neut % (Auto) (45-73) % Lymph % (Auto) (20-40) % [place] % (Auto) (2-11) % Eos % (Auto) (0-4) % Baso % (Auto) (0-2) % Lymph # (Auto) (1.2-4.9) X10*3/uL [place] # (Auto) (0.1-1.2) X10*3/uL Eos # (Auto) (0.0-0.4) X10*3/uL Baso # (Auto) (0.0-0.2) X10*3/uL Abs Immat Gran (auto) (0.00-0.03) X10*3/uL Absolute Neuts (auto) (2.0-8.3) X10*3/uL Absolute Nucleated RBC (0.0-0.012) X10*3/uL Nucleated RBC % (auto) (0.0-0.2) /100WBC VBG pH 7.22 L (7.32-7.43) VBG pCO2 51 mmHg VBG pO2 46 mmHg VBG HCO3 21 L (22-26) mmol/L VBG O2 Saturation 64.0 % VBG Base Excess -6.3 mmol/L Sodium (135-145) mmol/L Potassium (3.3-5.1) mmol/L Chloride (96-108) mmol/L Carbon Dioxide (22-29) mmol/L Anion Gap (12-20) BUN (9-16) mg/dL Creatinine (0.5-1.4) mg/dL Estim Creat Clear Calc Estimated GFR POC Glucose (60-115) mg/dL Random Glucose (60-115) mg/dL Lactic Acid (0.5-2.0) mmol/L Lactic Acid Fup @ 2Hr (0.5-2.0) mmol/L Calcium (8.4-10.2) mg/dL Total Bilirubin (0.0-1.0) mg/dL Direct Bilirubin (0.0-0.5) mg/dL AST (5-31) U/L ALT (0-31) U/L Alkaline Phosphatase (39-117) U/L Troponin I High Sens 16.2 (<3.5-17.0) ng/L B-Natriuretic Peptide 132 H (<100) pg/mL Total Protein (6.5-8.0) g/dL Albumin (3.5-5.0) g/dL Acetone, Qual (Negative) COVID-19 ([facility]) Positive A (Negative) COVID-19 Clin Com See Note 03/26/21 03/26/21 03/26/21 Range/Units 17:22 17:27 17:39 WBC (4.8-10.8) X10*3/uL RBC (4.20-5.50) X10*6/uL Hgb (12.0-16.0) g/dl Hct (37-47) % MCV (80-98) fL MCH (27.0-33.0) pg MCHC (31.0-35.0) g/dl RDW (11.0-16.0) % Plt Count (160-400) X10*3/uL MPV (9.4-12.3) fL Immature Gran % (Auto) (0.0-0.4) % Neut % (Auto) (45-73) % Lymph % (Auto) (20-40) % [place] % (Auto) (2-11) % Eos % (Auto) (0-4) % Baso % (Auto) (0-2) % Lymph # (Auto) (1.2-4.9) X10*3/uL [place] # (Auto) (0.1-1.2) X10*3/uL Eos # (Auto) (0.0-0.4) X10*3/uL Baso # (Auto) (0.0-0.2) X10*3/uL Abs Immat Gran (auto) (0.00-0.03) X10*3/uL Absolute Neuts (auto) (2.0-8.3) X10*3/uL Absolute Nucleated RBC (0.0-0.012) X10*3/uL Nucleated RBC % (auto) (0.0-0.2) /100WBC VBG pH (7.32-7.43) VBG pCO2 mmHg VBG pO2 mmHg VBG HCO3 (22-26) mmol/L VBG O2 Saturation % VBG Base Excess mmol/L Sodium (135-145) mmol/L Potassium (3.3-5.1) mmol/L Chloride (96-108) mmol/L Carbon Dioxide (22-29) mmol/L Anion Gap (12-20) BUN (9-16) mg/dL Creatinine (0.5-1.4) mg/dL Estim Creat Clear Calc Estimated GFR POC Glucose > 600 H* > 600 H* > 600 H* (60-115) mg/dL Random Glucose (60-115) mg/dL Lactic Acid (0.5-2.0) mmol/L Lactic Acid Fup @ 2Hr (0.5-2.0) mmol/L Calcium (8.4-10.2) mg/dL Total Bilirubin (0.0-1.0) mg/dL Direct Bilirubin (0.0-0.5) mg/dL AST (5-31) U/L ALT (0-31) U/L Alkaline Phosphatase (39-117) U/L Troponin I High Sens (<3.5-17.0) ng/L B-Natriuretic Peptide (<100) pg/mL Total Protein (6.5-8.0) g/dL Albumin (3.5-5.0) g/dL Acetone, Qual (Negative) COVID-19 ([facility]) (Negative) COVID-19 Clin Com 03/26/21 03/26/21 03/26/21 Range/Units 18:43 19:30 20:04 WBC (4.8-10.8) X10*3/uL RBC (4.20-5.50) X10*6/uL Hgb (12.0-16.0) g/dl Hct (37-47) % MCV (80-98) fL MCH (27.0-33.0) pg MCHC (31.0-35.0) g/dl RDW (11.0-16.0) % Plt Count (160-400) X10*3/uL MPV (9.4-12.3) fL Immature Gran % (Auto) (0.0-0.4) % Neut % (Auto) (45-73) % Lymph % (Auto) (20-40) % [place] % (Auto) (2-11) % Eos % (Auto) (0-4) % Baso % (Auto) (0-2) % Lymph # (Auto) (1.2-4.9) X10*3/uL [place] # (Auto) (0.1-1.2) X10*3/uL Eos # (Auto) (0.0-0.4) X10*3/uL Baso # (Auto) (0.0-0.2) X10*3/uL Abs Immat Gran (auto) (0.00-0.03) X10*3/uL Absolute Neuts (auto) (2.0-8.3) X10*3/uL Absolute Nucleated RBC (0.0-0.012) X10*3/uL Nucleated RBC % (auto) (0.0-0.2) /100WBC VBG pH (7.32-7.43) VBG pCO2 mmHg VBG pO2 mmHg VBG HCO3 (22-26) mmol/L VBG O2 Saturation % VBG Base Excess mmol/L Sodium 136 (135-145) mmol/L Potassium 5.5 H (3.3-5.1) mmol/L Chloride 107 (96-108) mmol/L Carbon Dioxide 21 L (22-29) mmol/L Anion Gap 14 (12-20) BUN 53 H (9-16) mg/dL Creatinine 1.80 H (0.5-1.4) mg/dL Estim Creat Clear Calc 27.7 Estimated GFR 28 POC Glucose 494 H* 399 H* (60-115) mg/dL Random Glucose 545 H* (60-115) mg/dL Lactic Acid (0.5-2.0) mmol/L Lactic Acid Fup @ 2Hr (0.5-2.0) mmol/L Calcium 7.6 L D (8.4-10.2) mg/dL Total Bilirubin 0.4 (0.0-1.0) mg/dL Direct Bilirubin (0.0-0.5) mg/dL AST 71 H (5-31) U/L ALT 37 H (0-31) U/L Alkaline Phosphatase 171 H (39-117) U/L Troponin I High Sens (<3.5-17.0) ng/L B-Natriuretic Peptide (<100) pg/mL Total Protein 6.8 (6.5-8.0) g/dL Albumin 2.7 L (3.5-5.0) g/dL Acetone, Qual (Negative) COVID-19 ([facility]) (Negative) COVID-19 Clin Com 03/26/21 Range/Units 20:05 WBC (4.8-10.8) X10*3/uL RBC (4.20-5.50) X10*6/uL Hgb (12.0-16.0) g/dl Hct (37-47) % MCV (80-98) fL MCH (27.0-33.0) pg MCHC (31.0-35.0) g/dl RDW (11.0-16.0) % Plt Count (160-400) X10*3/uL MPV (9.4-12.3) fL Immature Gran % (Auto) (0.0-0.4) % Neut % (Auto) (45-73) % Lymph % (Auto) (20-40) % [place] % (Auto) (2-11) % Eos % (Auto) (0-4) % Baso % (Auto) (0-2) % Lymph # (Auto) (1.2-4.9) X10*3/uL [place] # (Auto) (0.1-1.2) X10*3/uL Eos # (Auto) (0.0-0.4) X10*3/uL Baso # (Auto) (0.0-0.2) X10*3/uL Abs Immat Gran (auto) (0.00-0.03) X10*3/uL Absolute Neuts (auto) (2.0-8.3) X10*3/uL Absolute Nucleated RBC (0.0-0.012) X10*3/uL Nucleated RBC % (auto) (0.0-0.2) /100WBC VBG pH (7.32-7.43) VBG pCO2 mmHg VBG pO2 mmHg VBG HCO3 (22-26) mmol/L VBG O2 Saturation % VBG Base Excess mmol/L Sodium (135-145) mmol/L Potassium (3.3-5.1) mmol/L Chloride (96-108) mmol/L Carbon Dioxide (22-29) mmol/L Anion Gap (12-20) BUN (9-16) mg/dL Creatinine (0.5-1.4) mg/dL Estim Creat Clear Calc Estimated GFR POC Glucose (60-115) mg/dL Random Glucose (60-115) mg/dL Lactic Acid (0.5-2.0) mmol/L Lactic Acid Fup @ 2Hr 2.5 H* (0.5-2.0) mmol/L Calcium (8.4-10.2) mg/dL Total Bilirubin (0.0-1.0) mg/dL Direct Bilirubin (0.0-0.5) mg/dL AST (5-31) U/L ALT (0-31) U/L Alkaline Phosphatase (39-117) U/L Troponin I High Sens (<3.5-17.0) ng/L B-Natriuretic Peptide (<100) pg/mL Total Protein (6.5-8.0) g/dL Albumin (3.5-5.0) g/dL Acetone, Qual (Negative) COVID-19 ([facility]) (Negative) COVID-19 Clin Com Imaging Data Chest x-ray: Radiologist's impression: MPRESSION: Commonly reported imaging features of Covid 19 or viral pneumonia are present. Other processes such as influenza pneumonia or organizing pneumonia, as can be seen with drug toxicity and connective tissue disease, can cause a similar imaging pattern. CHF is felt to be less likely. ECG Data Attestation: I personally reviewed and interpreted this ECG as follows: (Sinus tachycardia, heart rate 104, nonspecific ST abnormality in V1 V2, no reciprocal changes, QTC 457) Critical Care Time Critical Care Time Critical Care Time: Yes Total Critical Care Time: 60 Attestation: 60 minutes were spent in direct patient care and stabilization Discharge Plan Discharge Clinical Impression: Pneumonia due to COVID-19 virus, Acute hyperglycemia, Acute kidney injury Respiratory failure with hypoxia Qualifiers: Chronicity: acute Qualified Code(s): J96.01 - Acute respiratory failure with hypoxia Patient Disposition: Admitted As Inpatient
[2021-03-26] MEDS: methylPREDNISolone Sod Succ 125 MG/2 ML VIAL IVPUSH (16:44)
[2021-03-26] MEDS: 0.9 % Sodium Chloride 1,000 ML 999 ML IVCONT ×2 (16:45→18:12)
[2021-03-26 16:51] LABS: MANUAL DIFF FLAG NO
--- NOTE | 2021-03-26 16:51 | PC.NURSE ---
iv inserted, labs drawn, night monitor sinus tach 105, pt was was 60% O2 on room air in the WR, pt was brought into room 2 and was in the low 70s, nonrebreather applied pt is not at 100%, bp wnl, ivf hanging per order, pts daughter brought patients cell phone in and has been calling, she called the unit secretary as well when her mother didnt answer. unit secretary was to notify the family that the patient is unable to speak on the phone at this time due to respiratory demand, will continue to monitor.
[2021-03-26 16:52] LABS: Basophils Percent Auto 0.2 % (0-2); Hematocrit 41.1 % (37-47); Hemoglobin 12.3 g/dl (12.0-16.0); Imm Gran Abs Auto 0.17 X10*3/uL (0.00-0.03); Imm Gran Pct Auto 1.5 % (0.0-0.4); Lymphocytes Absolute Auto 1.8 X10*3/uL (1.2-4.9); Lymphocytes Percent Auto 15.9 % (20-40); Mean Corpuscular HGB Conc 29.9 g/dl (31.0-35.0); Mean Corpuscular Hemoglobin 24.7 pg (27.0-33.0); Mean Corpuscular Volume 82.7 fL (80-98); Mean Platelet Volume 11.1 fL (9.4-12.3); Monocytes Absolute Auto 0.8 X10*3/uL (0.1-1.2); Monocytes Percent Auto 7.2 % (2-11); Neutrophils Absolute Auto 8.7 X10*3/uL (2.0-8.3); Neutrophils Percent Auto 75.2 % (45-73); Platelet Count 285 X10*3/uL (160-400); Red Blood Count 4.97 X10*6/uL (4.20-5.50); Red Cell Distribution Width 14.8 % (11.0-16.0); White Blood Count 11.6 X10*3/uL (4.8-10.8)
[2021-03-26 17:08] LABS: Lactic Acid 11.5 mmol/L (0.5-2.0)
[2021-03-26 17:14] LABS: B Type Natriuretic Peptide 132 pg/mL (<100); Troponin-I High Sensitivity 16.2 ng/L (<3.5-17.0)
[2021-03-26 17:21] LABS: VBG Base Excess -6.3 mmol/L; VBG HCO3 21 mmol/L (22-26); VBG pCO2 51 mmHg; VBG pH 7.22 (7.32-7.43); VBG pO2 46 mmHg
[2021-03-26 17:28] LABS: Alanine Aminotransferase 43 U/L (0-31); Albumin Level 3.3 g/dL (3.5-5.0); Alkaline Phosphatase 205 U/L (39-117); Anion Gap 25 (12-20); Aspartate Amino Transferase 80 U/L (5-31); Blood Urea Nitrogen 60 mg/dL (9-16); Calcium 8.7 mg/dL (8.4-10.2); Carbon Dioxide 17 mmol/L (22-29); Chloride 96 mmol/L (96-108); Creatinine Clr Calc Pharmacy 20.7; Estimated Glomerular Filt Rate 20; Glucose Random 710 mg/dL (60-115); Potassium 4.8 mmol/L (3.3-5.1); Sodium 133 mmol/L (135-145)
[2021-03-26 17:28] LABS: Venous Blood Gas Refer to POC result
[2021-03-26 17:31] LABS: Bilirubin Direct 0.4 mg/dL (0.0-0.5); Bilirubin Total 0.6 mg/dL (0.0-1.0)
[2021-03-26 17:33] LABS: COVID-19 Test Positive (Negative); IDNOW Serial# 9DD0AD1C
[2021-03-26 17:39] LABS: Glucose, Whole Blood > 600 mg/dL (60-115)
[2021-03-26 17:39] LABS: Glucose, Whole Blood > 600 mg/dL (60-115)
[2021-03-26 17:42] LABS: Glucose, Whole Blood > 600 mg/dL (60-115)
[2021-03-26] MEDS: LORazepam 2 MG/ML VIAL 1 MG IVPUSH (17:42)
[2021-03-26] MEDS: Piperacillin Sodium/Tazobactam 3.375 GM in 0.9 % Sodium Chloride 50 ML IV (17:43)
[2021-03-26] MEDS: Insulin Regular, Human 100 UNIT/ML 3 ML VIAL 10 UNIT IVPUSH ×2 (17:51→20:48)
--- NOTE | 2021-03-26 18:05 | PC.NURSE ---
patient changed over to venti mask 8L/40%, patients O2 sat is 83% on the venti
--- NOTE | 2021-03-26 18:08 | PC.NURSE ---
patient was switched back to nrb mask
[2021-03-26 18:09] LABS: Acetone, serum QL Negative (Negative)
[2021-03-26 18:48] LABS: Glucose, Whole Blood 494 mg/dL (60-115)
[2021-03-26 18:49] LABS: Reflex Lactate? Lactic Acid Added
--- NOTE | 2021-03-26 18:58 | PHA.MEDREC ---
Pharmacy Consult ? Medication Reconciliation Pharmacy has completed the medication reconciliation. There are no remarkable issues for provider's attention. I spoke with patient's daughter Lillie who is the health care proxy to verify all medications. Naya Christiansen, ShaniaD
[2021-03-26 20:10] LABS: Glucose, Whole Blood 399 mg/dL (60-115)
[2021-03-26 20:27] LABS: ~Lactic Acid-LAB USE ONLY 2.5 mmol/L (0.5-2.0)
[2021-03-26 20:29] LABS: Alanine Aminotransferase 37 U/L (0-31); Albumin Level 2.7 g/dL (3.5-5.0); Alkaline Phosphatase 171 U/L (39-117); Anion Gap 14 (12-20); Aspartate Amino Transferase 71 U/L (5-31); Bilirubin Total 0.4 mg/dL (0.0-1.0); Blood Urea Nitrogen 53 mg/dL (9-16); Calcium 7.6 mg/dL (8.4-10.2); Carbon Dioxide 21 mmol/L (22-29); Chloride 107 mmol/L (96-108); Creatinine Clr Calc Pharmacy 27.7; Estimated Glomerular Filt Rate 28; Glucose Random 545 mg/dL (60-115); Potassium 5.5 mmol/L (3.3-5.1); Sodium 136 mmol/L (135-145); Total Protein 6.8 g/dL (6.5-8.0)
--- NOTE | 2021-03-26 20:35 | PC.NURSE ---
This RN to bedside ~1925. Pt found resting on stretcher with eyes open, breathing with ease on NRB at 15LPM, O2 sat 100%. Interpreters to bedside. This RN introduces self to pt, requests pt to answer questions for this RN. 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 Yesenia, RN who was previous RN caring for pt to bedside. This RN asks if this was same presentation as earlier, Yesenia states no, pt was previously communicating with RN and Dr Solis. Dr Solis made aware. Dr Solis to bedside, speaks to pt in Amharic and pt responding, answering questions appropriately for Dr Solis. Pt found to be incontinent of urine. Inc care provided. Pt's repeat CMP and lactic drawn, sent to lab for processing. Pt with red fall prevention socks on, red fall alert wrist band in place. Pt NSR on cardiac cath tech, VSS. Stretcher in low locked position, rails raised, call jimenez within reach.
--- NOTE | 2021-03-26 20:43 | PC.NURSE ---
This RN contacted RT to notify of pt's order for ABG.
[2021-03-26 21:12] LABS: ABG Base Excess -2.3 mmol/L; ABG HCO3 24 mmol/L (22-26); ABG pCO2 46 mmHg (32-45); ABG pCO2 TC 45 mmHg (32-45); ABG pH 7.31 (7.35-7.45); ABG pH TC 7.32 (7.35-7.45); ABG pO2 124 mmHg (83-108); ABG pO2 TC 120 (83-108)
[2021-03-26 21:13] LABS: ABG Refer to POC result
[2021-03-26 22:08] LABS: Reflex Lactate? 2 Y
--- NOTE | 2021-03-26 22:20 | PC.NURSE ---
Dr Stuart to bedside to assess pt, trials pt on NC at 6LPM, pt desat to 84%. Per Narciso, pt to be placed on NRB at 15lpm and to receive head CT.
--- NOTE | 2021-03-26 22:33 | P.HPHOSP_ITS ---
History of Present Illness Date of Service: 03/26/21 Chief Complaint: SOB 65-year-old female with a past medical history of hypertension, hyperlipidemia, diabetes, CAD, mild aortic stenosis; last echo showed EF of 60-65%; COPD; GERD, goiter, osteoarthritis, osteoporosis, pulmonary nodule presented to the hospital with a chief complaint of shortness of breath. At the time of my interview patient is alert and awake, lying in the bed on non- rebreather, noted to be mildly anxious, unable to provide history, not following simple commands, spontaneously moving the extremities, when asked to name- mentions her name in a husky voice. But unable to provide any other history. Interviewed the patient along with the dampener. Spoke to the patient's daughter TOO-> who is the healthcare proxy. 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 Daughter mentions that patient's mom has not been feeling well over the past few weeks and has been complaining of the leg pains and went to see a doctor couple weeks ago who suggested probably pinch in no/radiculopathy; but patient is still complained of the pain and not feeling well; and last Wednesday she had a COVID test done which came back positive; and has been giving her fluids and vitamin-C and today she noted that the patient was very shaky and appeared exhausted; hence brought her to the hospital further evaluation. Mentioned that patient does not want to get out of the car as she does not want to to the hospital initially and was able to speak to her okay. RN in the ER mentioned that patient had no movement was lying in the bed, not responding to the commands and when to call the ER doctor patient was normal and talking to the ER doctor okay and talking. Attributed to anxiety and given Ativan. RN in the ER also mentioned that patient was noted to be saturating in 60s when she was in the triage area. Subsequently placed and was placed on non- rebreather with improvement in oxygenation; followed by when they tried to wean her down to Ventimask patient could not tolerate it and was desaturating hence that she was placed back on non-rebreather with saturations improved to high 90s. ER course: Per ER physician patient on presentation noted to be anxious, hypoxic, tachypneic, placed on non-rebreather; coarse lung sounds; chest x-ray showed findings concerning for COVID pneumonia. On the labs noted to have severely elevated lactate, mild acidosis, elevated fingerstick glucose in 700; given subcutaneous insulin with improvement in fingerstick glucose to 400s. Patient was given 2 L of normal saline; lactate improved from 12-2.5. On blood gas patient noted to have pH of 7.2. Patient was given so given Zosyn empirically for pneumonia. And Solu-Medrol. Admitted for further management. 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 Sister No problems noted. Son No problems noted. Daughter No problems noted. Pertinent family history: As above Surgical History H/O colonoscopy History of PTCA Hx of appendectomy Hx of cataract extraction Hx of section Hx of cholecystectomy Hx of heart artery stent Social History Alcohol intake: current Alcohol intake frequency: holidays/special occasions only Cigarette Packs Per Day: 1 Cigarettes Per Day: 20.0 Years Smoked: 30 Advance Directives: No Advance Directives Information Provided: Yes Meds Allergies Allergy/AdvReac Type Severity Reaction Status Date / Time morphine [MORPHINE] Allergy Severe HIVES AND Verified 03/12/21 13:09 DIFFICULTY BREATHING, dyspnea, rash Penicillins Allergy Intermediate ITCHING Verified 03/12/21 13:09 Active Medications: Current Medications Acetaminophen (Acetaminophen Supp 650 Mg Supp.Rect) 650 mg AL Q6H PRN PRN Reason: Pain, Mild (Pain Scale 1-3) Albuterol Sulfate (Albuterol Sulfate 90 Mcg 8 Gm Inhaler) 2 puff INHALE RQ4H PRN PRN Reason: Shortness of Breath/Wheezing Dextrose (Dextrose 50 % 25 Gm/50 Ml Vial) 25 gm IVPUSH Q15M PRN; Protocol PRN Reason: per Hypoglycemia Standing Ord. Enoxaparin Sodium (Enoxaparin Sodium 30 Mg/0.3 Ml Syringe) 30 mg SUBCUT Q24H [facility] Glucose (Glucose Gel 15 Gm Gel..Gram.) 15 gm PO Q15M PRN; Protocol PRN Reason: per Hypoglycemia Standing Ord. Dextrose/Sodium Chloride (D51/2ns) 1,000 mls @ 30 mls/hr IVCONT .Q24H [facility] Insulin Human Lispro (Insulin Lispro 100 Unit/Ml 3 Ml Vial) 0 unit SUBCUT QIDACHS [facility]; Protocol Methylprednisolone Sodium Succinate (Methylprednisolone Sod Succ 40 Mg/Ml Vial) 40 mg IVPUSH Q6H [facility] Morphine Sulfate (Morphine Sulfate 4 Mg/Ml Cartridge) 1 mg IVPUSH Q4H PRN; Protocol PRN Reason: Pain, Severe (Pain Scale 7-10) Morphine Sulfate (Morphine Sulfate 2 Mg/Ml Cartridge) 1 mg IVPUSH Q4H PRN; Protocol PRN Reason: [facility] Consult (Consult Rx Perform Med Rec) 1 each MISCELLANE ONCE PRN PRN Reason: Consult order Sodium Chloride (0.9 % Sodium Chloride Flush 3 Ml Syringe) 3 ml IVFLUSH QSHIFT [facility] Home Medications Medication Instructions Recorded Confirmed Last Taken Type aripiprazole 5 mg tablet 5 mg PO DAILY 05/07/20 03/26/21 Unknown History aspirin 81 mg tablet 81 mg PO DAILY 05/07/20 03/26/21 Unknown History docusate sodium 100 mg capsule 100 mg PO BID 05/07/20 03/26/21 Unknown History sennosides 8.6 mg tablet (senna) 8.6 mg PO BEDTIME 05/07/20 03/26/21 Unknown History lisinopril 5 mg tablet 5 mg PO DAILY 10/24/20 03/26/21 Unknown History acetaminophen 325 mg tablet 650 mg PO Q6H PRN 03/26/21 03/26/21 Unknown History Physical Exam Vital Signs and Narrative: Vital Signs: Last Vital Signs Temp 99.2 F 03/26/21 20:01 Pulse 99 03/26/21 20:01 Resp 20 03/26/21 20:01 BP 150/68 H 03/26/21 20:01 Pulse Ox 100 03/26/21 20:01 Body Mass Index 32.2 Gen: Appears be in no acute distress; on non-rebreather; desaturates to the low 80s on room air; not improving with nasal cannula; placed back on non- rebreather. HEENT: NCAT, Moist mucosa. Pupils are equal and reactive Pulmonary: Course breath sounds, fair air entry CVS: Normal S1-S2 Abdomen: BS+, Soft, Nontender Extremities: Warm well perfused Neuro: Alert and awake. Patient unable to express the words; when asked from the name patient mentions TOO in a husky voice. Patient not able to follow commands like hold finger; spontaneously moves extremities; Results Labs CBC and Chem 7: 03/27/21 04:03 03/27/21 04:03 Labs: Laboratory Results - last 24 hr 03/26/21 03/26/21 03/26/21 16:43 16:43 16:43 MCV 82.7 MCH 24.7 L MCHC 29.9 L RDW 14.8 Plt Count 285 MPV 11.1 Immature Gran % (Auto) 1.5 H Neut % (Auto) 75.2 H Lymph % (Auto) 15.9 L [place] % (Auto) 7.2 Eos % (Auto) 0.0 Baso % (Auto) 0.2 Lymph # (Auto) 1.8 [place] # (Auto) 0.8 Eos # (Auto) 0.0 Baso # (Auto) 0.0 Abs Immat Gran (auto) 0.17 H Absolute Neuts (auto) 8.7 H Absolute Nucleated RBC 0.000 Nucleated RBC % (auto) 0.0 O2 Saturation ABG pH at Pt Temp ABG pH (Temp Correct) ABG pCO2 at Pt Temp ABG pCO2 (Temp Corrct ABG pO2 at Pt Temp ABG pO2 (Temp Correct ABG HCO3 ABG Base Excess (Actual) VBG pH VBG pCO2 VBG pO2 VBG HCO3 VBG O2 Saturation VBG Base Excess Anion Gap 25 H Estim Creat Clear Calc 20.7 Estimated GFR 20 POC Glucose Random Glucose 710 H* Lactic Acid 11.5 H* Lactic Acid Fup @ 2Hr Calcium 8.7 D Total Bilirubin 0.6 Direct Bilirubin 0.4 AST 80 H ALT 43 H Alkaline Phosphatase 205 H D Troponin I High Sens B-Natriuretic Peptide Total Protein 8.0 Albumin 3.3 L Acetone, Qual Negative COVID-19 ([facility]) COVID-19 Clin Com 03/26/21 03/26/21 03/26/21 16:43 16:43 17:13 MCV MCH MCHC RDW Plt Count MPV Immature Gran % (Auto) Neut % (Auto) Lymph % (Auto) [place] % (Auto) Eos % (Auto) Baso % (Auto) Lymph # (Auto) [place] # (Auto) Eos # (Auto) Baso # (Auto) Abs Immat Gran (auto) Absolute Neuts (auto) Absolute Nucleated RBC Nucleated RBC % (auto) O2 Saturation ABG pH at Pt Temp ABG pH (Temp Correct) ABG pCO2 at Pt Temp ABG pCO2 (Temp Corrct ABG pO2 at Pt Temp ABG pO2 (Temp Correct ABG HCO3 ABG Base Excess (Actual) VBG pH 7.22 L VBG pCO2 51 VBG pO2 46 VBG HCO3 21 L VBG O2 Saturation 64.0 VBG Base Excess -6.3 Anion Gap Estim Creat Clear Calc Estimated GFR POC Glucose Random Glucose Lactic Acid Lactic Acid Fup @ 2Hr Calcium Total Bilirubin Direct Bilirubin AST ALT Alkaline Phosphatase Troponin I High Sens 16.2 B-Natriuretic Peptide 132 H Total Protein Albumin Acetone, Qual COVID-19 ([facility]) Positive A COVID-19 Clin Com See Note 03/26/21 03/26/21 03/26/21 17:22 17:27 17:39 MCV MCH MCHC RDW Plt Count MPV Immature Gran % (Auto) Neut % (Auto) Lymph % (Auto) [place] % (Auto) Eos % (Auto) Baso % (Auto) Lymph # (Auto) [place] # (Auto) Eos # (Auto) Baso # (Auto) Abs Immat Gran (auto) Absolute Neuts (auto) Absolute Nucleated RBC Nucleated RBC % (auto) O2 Saturation ABG pH at Pt Temp ABG pH (Temp Correct) ABG pCO2 at Pt Temp ABG pCO2 (Temp Corrct ABG pO2 at Pt Temp ABG pO2 (Temp Correct ABG HCO3 ABG Base Excess (Actual) VBG pH VBG pCO2 VBG pO2 VBG HCO3 VBG O2 Saturation VBG Base Excess Anion Gap Estim Creat Clear Calc Estimated GFR POC Glucose > 600 H* > 600 H* > 600 H* Random Glucose Lactic Acid Lactic Acid Fup @ 2Hr Calcium Total Bilirubin Direct Bilirubin AST ALT Alkaline Phosphatase Troponin I High Sens B-Natriuretic Peptide Total Protein Albumin Acetone, Qual COVID-19 ([facility]) COVID-19 [employer] 03/26/21 03/26/21 03/26/21 18:43 19:30 20:04 MCV MCH MCHC RDW Plt Count MPV Immature Gran % (Auto) Neut % (Auto) Lymph % (Auto) [place] % (Auto) Eos % (Auto) Baso % (Auto) Lymph # (Auto) [place] # (Auto) Eos # (Auto) Baso # (Auto) Abs Immat Gran (auto) Absolute Neuts (auto) Absolute Nucleated RBC Nucleated RBC % (auto) O2 Saturation ABG pH at Pt Temp ABG pH (Temp Correct) ABG pCO2 at Pt Temp ABG pCO2 (Temp Corrct ABG pO2 at Pt Temp ABG pO2 (Temp Correct ABG HCO3 ABG Base Excess (Actual) VBG pH VBG pCO2 VBG pO2 VBG HCO3 VBG O2 Saturation VBG Base Excess Anion Gap 14 Estim Creat Clear Calc 27.7 Estimated GFR 28 POC Glucose 494 H* 399 H* Random Glucose 545 H* Lactic Acid Lactic Acid Fup @ 2Hr Calcium 7.6 L D Total Bilirubin 0.4 Direct Bilirubin AST 71 H ALT 37 H Alkaline Phosphatase 171 H Troponin I High Sens B-Natriuretic Peptide Total Protein 6.8 Albumin 2.7 L Acetone, Qual COVID-19 ([facility]) COVID-19 [employer] 03/26/21 03/26/21 20:05 21:07 MCV MCH MCHC RDW Plt Count MPV Immature Gran % (Auto) Neut % (Auto) Lymph % (Auto) [place] % (Auto) Eos % (Auto) Baso % (Auto) Lymph # (Auto) [place] # (Auto) Eos # (Auto) Baso # (Auto) Abs Immat Gran (auto) Absolute Neuts (auto) Absolute Nucleated RBC Nucleated RBC % (auto) O2 Saturation 99.0 ABG pH at Pt Temp 7.31 L ABG pH (Temp Correct) 7.32 L ABG pCO2 at Pt Temp 46 H ABG pCO2 (Temp Corrct 45 ABG pO2 at Pt Temp 124 H ABG pO2 (Temp Correct 120 H ABG HCO3 24 ABG Base Excess (Actual) -2.3 VBG pH VBG pCO2 VBG pO2 VBG HCO3 VBG O2 Saturation VBG Base Excess Anion Gap Estim Creat Clear Calc Estimated GFR POC Glucose Random Glucose Lactic Acid Lactic Acid Fup @ 2Hr 2.5 H* Calcium Total Bilirubin Direct Bilirubin AST ALT Alkaline Phosphatase Troponin I High Sens B-Natriuretic Peptide Total Protein Albumin Acetone, Qual COVID-19 ([facility]) COVID-19 Clin Com Imaging Radiologist's Impressions: Impressions Chest X-Ray 03/26/21 16:36 IMPRESSION: Commonly reported imaging features of Covid 19 or viral pneumonia are present. Other processes such as influenza pneumonia or organizing pneumonia, as can be seen with drug toxicity and connective tissue disease, can cause a similar imaging pattern. CHF is felt to be less likely. Assessment and Plan (1) Respiratory failure with hypoxia: Qualifiers: Chronicity: acute Qualified Code(s): J96.01 - Acute respiratory failure with hypoxia Status: Acute (2) Acute kidney injury: Status: Acute (3) Acute hyperglycemia: Status: Acute (4) Pneumonia due to COVID-19 virus: Status: Acute (5) Type 2 diabetes mellitus with unspecified complications: Status: Acute (6) Lactic acid acidosis: Status: Acute (7) Bacteremia: Status: Acute (8) UTI (urinary tract infection): Status: Acute 65-year-old female with a past medical history of hypertension, hyperlipidemia, diabetes, CAD, mild aortic stenosis; last echo showed EF of 60- 65%; COPD; GERD, goiter, osteoarthritis, osteoporosis, pulmonary nodule presented to the hospital with a chief complaint of shortness of breath. Acute hypoxic respiratory failure: In the setting of COVID-19 pneumonia. Continue supplemental oxygen via high-flow/non-rebreather as needed. Spoke to the RN to keep the goal oxygen saturation of 93%. Continue Solu-Medrol IV Albuterol inhaler p.r.n. Pulmonology consult Will also obtain V/Q scan. Empiric Lovenox until then. pt in High Flow @55lits saturating 94%; RR:-high 20s. ABG: ph 7.3; po2 in 60s; 5:30AM: f/u CXR shows worsening Opacities; proBNP increased-> given lasix 20mg IVx1. Fio2@100%; repeat ABG morphine prn for SOB/Anxiety discussed with ICU attending Dr. Tinoco-> who reviewed case and recommended another 40mg of Lasix;given a concern for pulm edema component (secondary to fluids she received for lactic acidosis) Sepsis:BP stable UTI: pt on ceftriaxone; Bacteremia: Blood Cx growing GNR. COVID-19 pneumonia: Continue ceftriaxone and azithromycin. Patient on steroi ds. Id consult for further recommendations. Lactic acidosis: lactate was 12 on presentation. Likely in setting of sepsis/hypoxia/dehydration. Improving with IV fluids. Continue gentle normal saline. Diabetes/hyperglycemia: Closely monitor fingerstick glucose. Insulin sliding scale plus Lantus 20u; adjust insulin dose as needed. SUDEEP: As per the family patient has reduced intake over the past few days. Likely prerenal. Renal function improving with IV fluids. Avoid nephrotoxins. Rashid placed for i/Os Hyperkalemia: Likely in setting of SUDEEP. No EKG changes. Follow up BMP->k : 5.8-> Given lasix ; f/u BMP Anion gap acidosis: Multifactorial: Also noted to have severe lactic acidosis. Improved with IV fluids. ? Aphasia: Patient unable to speak any words when asked for questions. Question anxiety versus anoxic injury. CT head- negative. Neurology consult. Dysphagia screen. NPO for now. Reportedly patient was intermittently speaking okay. Will continue to monitor Leg pains: Will obtain venous duplex. Home medications on Hold for now. Diet: NPO for now. Swallow eval. DVT prophylaxis: Lovenox Code status: Full code. Discussed with the patient's daughter. Above plan of care was discussed in detail with the patient's daughter TOO BLAND (PH [phone]), HCP, who expresses agreement to the current plan. Quality Stroke Does the patient have a stroke diagnosis?: No VTE Prior VTE?: No VTE Risk Level:: Medical - moderate - high VTE Device Contraindication: Treatment Not Indicated VTE Drug Contraindication: N/A - Med Ordered
[2021-03-26 22:43] LABS: Glucose, Whole Blood 417 mg/dL (60-115)
[2021-03-26 22:45] LABS: ~Lactic Acid-LAB USE ONLY 1.7 mmol/L (0.5-2.0)
--- NOTE | 2021-03-26 22:51 | PC.NURSE ---
Pt incontinent of urine, inc care provided and purewick placed. Pt's POC glucose assessed, 417. This RN called Dr Stuart who changed maintenance fluids from D5 half normal to NS. Per Narciso, this RN to call RT to change pt to high flow nasal cannula from NRB to minimize risk of pt retaining CO2. Additionally, goal O2 sat 92-93%. This RN called RT to notify of high flow requirement and goal O2 sat. Dr Stuart notified that at this time, pt unable to participate in swallow screen and to remain at NPO at this time. Dr Stuart expresses understanding, states this is ok for now and if pt becomes more responsive/participatory in care then pt to be assessed with swallow screen at that time. Pt awaiting head CT. Per Dr Stuart who spoke with pt's daughter, pt is full code. Stretcher in low locked position, rails raised, call jimenez within reach. Fall precautions remain in place.
[2021-03-26] MEDS: Enoxaparin Sodium 100 MG/ML SYRINGE 75 MG SUBCUT (23:07)
[2021-03-26] MEDS: cefTRIAXone sodium 1 GM in 0.9 % Sodium Chloride 50 ML IV (23:07)
[2021-03-26] MEDS: 0.9 % Sodium Chloride 1,000 ML 42 ML IVCONT (23:10)
--- NOTE | 2021-03-26 23:17 | PC.NURSE ---
Pt medicated per YESENIA RT at bedside placed pt on HFNC
[2021-03-27] VITALS (25 sets, daily range): BP systolic 125–166; BP diastolic 70–86; PULSE 80–101; RESP 16–35; TEMP 36.4–37.1; O2SAT 87–97
[2021-03-27] MEDS: methylPREDNISolone Sod Succ 40 MG/ML VIAL IVPUSH ×5 (00:09→22:11)
[2021-03-27] MEDS: Insulin Lispro 100 UNIT/ML 3 ML VIAL SUBCUT ×6 (00:09→22:10)
[2021-03-27] MEDS: Azithromycin 500 MG in 0.9 % Sodium Chloride 250 ML 125 MG IV ×2 (00:09→22:50)
--- NOTE | 2021-03-27 00:14 | PC.NURSE ---
Pt desat to 87% on HFNC. RT made aware, to bedside, increased pt's FiO2 to 86.5%, 50LPM and pt's sat increased to 96%. Per RT, pt to remain at this FiO2 for now and plan to wean from there.
--- NOTE | 2021-03-27 00:54 | PC.NURSE ---
Pt to ED CT with this RN and RT on cardiac rehab nurse. Pt on NRB for CT, tolerated well without O2 desat Pt returned from CT and placed back on bedside cardiac rehab nurse. Pt placed on 100% FiO2 at 55LPM by RT and O2 sat currently 96%. Pt found to be incontinent of urine despite purewick in place. Pt spreads legs and moves on stretcher causing purewick to intermittently become displaced, causing pt to require incontinence care. Inc care drops pt's O2 sats. This RN requesting topete catheter from Dr Stuart, awaiting reply.
[2021-03-27] MEDS: Morphine Sulfate 2 MG/ML CARTRIDGE 1 MG IVPUSH ×4 (01:04→18:32)
[2021-03-27 01:32] LABS: ABG Base Excess -3.8 mmol/L; ABG HCO3 21 mmol/L (22-26); ABG pCO2 39 mmHg (32-45); ABG pCO2 TC 39 mmHg (32-45); ABG pH 7.34 (7.35-7.45); ABG pH TC 7.34 (7.35-7.45); ABG pO2 61 mmHg (83-108); ABG pO2 TC 60 (83-108)
[2021-03-27 01:39] LABS: Appearance Urine TURBID; Color Urine YELLOW; UACC Culture Trigger YES
[2021-03-27 01:40] LABS: Glucose Urine UA 500 MG/DL (NEG); Urine Blood 3+ (NEG); Urine Ketones NEG (NEG); Urine Protein 1+ MG/DL (NEG-TRACE)
[2021-03-27 01:41] LABS: Leukocyte Esterase Urine 3+ (NEG); Nitrite Urine NEG (NEG)
[2021-03-27 01:47] LABS: Bacteria Urine 4+ /LPF; Squamous Epithelial Cell Urine 4+ /LPF; WBC Urine TNTC /HPF (0-4)
--- NOTE | 2021-03-27 02:01 | PC.NURSE ---
Dr Stuart made aware of UA results
[2021-03-27 02:56] LABS: ABG Refer to POC result
--- NOTE | 2021-03-27 03:50 | PC.NURSE ---
Per Dr Stuart, stop maintenance fluids at this time, give 1mg morphine early as it isn't due until 5am but can give now, and pt to have repeat CXR as Dr Stuart made aware that remains tachypneic
[2021-03-27 04:08] LABS: Basophils Percent Auto 0.2 % (0-2); Hematocrit 38.1 % (37-47); Hemoglobin 11.8 g/dl (12.0-16.0); Imm Gran Abs Auto 0.13 X10*3/uL (0.00-0.03); Lymphocytes Absolute Auto 1.9 X10*3/uL (1.2-4.9); Lymphocytes Percent Auto 14.7 % (20-40); MANUAL DIFF FLAG NO; Mean Corpuscular Hemoglobin 24.9 pg (27.0-33.0); Mean Corpuscular Volume 80.4 fL (80-98); Mean Platelet Volume 10.9 fL (9.4-12.3); Monocytes Absolute Auto 0.3 X10*3/uL (0.1-1.2); Monocytes Percent Auto 2.6 % (2-11); Neutrophils Absolute Auto 10.8 X10*3/uL (2.0-8.3); Neutrophils Percent Auto 81.5 % (45-73); Platelet Count 262 X10*3/uL (160-400); Red Blood Count 4.74 X10*6/uL (4.20-5.50); White Blood Count 13.2 X10*3/uL (4.8-10.8)
[2021-03-27 04:34] LABS: B Type Natriuretic Peptide 384 pg/mL (<100)
--- NOTE | 2021-03-27 04:36 | PC.NURSE ---
This RN contacted RT regarding concerns of low PaO2 in 60s per last ABG. This RN remains concerned about pt's PaO2. Tish, organizational research consultant asked Narciso if he would like repeat ABG at change of shift. Narciso not agreeable at this time to repeat blood gases. Pt's glucose 500 on repeat CMP, Dr Stuart made aware. Plan for lispo per sliding scale at this time and lantus as ordered.
[2021-03-27 04:38] LABS: Anion Gap 13 (12-20); Blood Urea Nitrogen 45 mg/dL (9-16); Calcium 7.8 mg/dL (8.4-10.2); Carbon Dioxide 23 mmol/L (22-29); Chloride 109 mmol/L (96-108); Creatinine Clr Calc Pharmacy 35.4; Estimated Glomerular Filt Rate 37; Glucose Random 500 mg/dL (60-115); Potassium 5.8 mmol/L (3.3-5.1); Sodium 139 mmol/L (135-145)
[2021-03-27] MEDS: Insulin Glargine,Hum.rec.anlog 100 UNIT/ML 10 ML VIAL 20 UNIT SUBCUT (04:59)
--- NOTE | 2021-03-27 05:51 | PC.NURSE ---
This RN called Dr Stuart to confirm order for regular insulin as well as lasix. Per Dr Stuart, hold regular insulin at this time, give lasix for elevated BNP and kyperkalemia. If pt's O2 sat increase/ supplemental O2 requirements decrease s/p lasix, no repeat blood gas needed. If pt's O2 sat/ supplemental O2 requirements remain the same s/p lasix, repeat blood gas indicated for ICU c/s and possible intubation.
[2021-03-27] MEDS: Furosemide 20 MG/2 ML VIAL IVPUSH (06:03)
--- NOTE | 2021-03-27 06:27 | PC.NURSE ---
Per Narciso who c/s Dr Tinoco, plan for additional 40mg lasix at this time. Narciso made aware that initial dose of 20mg lasix was given about 20 mins ago with no improvement in respiratory status. This RN asked Narciso how long after admin of additional lasix is reassessment of O2 requirements to be done in order to determine whether repeat ABG is indicated. Awaiting reply at this time.
[2021-03-27] MEDS: Furosemide 40 MG/4 ML VIAL IVPUSH (06:29)
--- NOTE | 2021-03-27 06:34 | PC.NURSE ---
Pt remains arousable to voice but minimally responsive. Narciso made aware. Per Narciso, after pt with 1L urine output, O2 requirements to be reassessed. Pending reassessment, repeat gases may be indicated.
--- NOTE | 2021-03-27 07:55 | PC.NURSE ---
Pt is arousable to voice but unable to follow commands. NSR on monitor. has put out 800ml urine, remains on high flow NC at 100%FiO2. sugars are high despite insulin coverage at 5am. This RN calling Dr Crawford to consult re: insulin coverage and resp needs. Dr Crawford to come eval patient himself.
[2021-03-27] MEDS: 0.9 % Sodium Chloride Flush 3 ML SYRINGE IVFLUSH ×3 (08:04→22:12)
--- NOTE | 2021-03-27 08:05 | PC.NURSE ---
no pedal edema noted, brisk cap refill toes and fingers. dry Mucouse membranes
[2021-03-27 08:11] LABS: Glucose, Whole Blood 375 mg/dL (60-115)
--- NOTE | 2021-03-27 08:26 | PC.NURSE ---
pat [facility] to call back for report.
--- NOTE | 2021-03-27 08:43 | PC.NURSE ---
rn to rn with pat.
--- NOTE | 2021-03-27 08:53 | PC.NURSE ---
Daughter Lillie, updated on phone. States pt was fully vaccinated with pfizer on august 31 and . Baseline is ambulatory and does all self care.
--- NOTE | 2021-03-27 08:54 | MHC.CM.PN ---
Patient is Covid (+) and unreachable by phone @ [phone] nor room ext. [phone]. When CM attempted calling [phone], CM reached First Contact/Granddaughter/Ginger and CM addressed IMM with Ginger and at her request, will ask RN to provide Patient with the original and a copy will be placed on the chart. Patient lives in an apartment with her Daughter and she has both a cane and a walker to assist with mobility. Patient receives 8 hours/day of [employer] services and family did not feel that Patient would want the VNA (does not like new caregivers/visitors especially with Covid). Home/resume [employer] services is the goal for dc and CM has initiated and will follow for dc planning.PCP is Dr. Anali Negron.
--- NOTE | 2021-03-27 10:33 | MHC.SLORD ---
Speech Language Pathology Order Status: Order for bedside dysphagia evaluation received. [facility] checked in with RN this morning who reports that patient is lethargic and not appropriate for PO trials at this time. RN to contact [facility] FROM [facility] via [place] Message or ext. [phone] if patient's mental status improves later in the day. Otherwise, [facility] will re-attempt PO trials tomorrow morning.
[2021-03-27 10:58] LABS: Glucose, Whole Blood 349 mg/dL (60-115)
--- NOTE | 2021-03-27 12:26 | PM.NEUROCN ---
History of Present Illness Data of Consult Service Date: 03/27/21 Primary Care Provider: Anali Negron MD [facility] Reason for consult: ? aphasia 65 years old woman with underlying history of COPD brought to hospital with shortness of breath and was diagnosed with COVID and was admitted in COVID floor. It was noted that she was not responding to questions and a question of aphasia was raise. There was no focal weakness or any sign of convulsion. When I saw her she was in COVID floor with a known rebreather mask. Review of Systems Review of Systems: She has complained of low back pain and leg pain recently. Otherwise review of system was limited. 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 Sister No problems noted. Son No problems noted. Daughter No problems noted. Surgical History Surgical History H/O colonoscopy History of PTCA Hx of appendectomy Hx of cataract extraction Hx of section Hx of cholecystectomy Hx of heart artery stent Social History Social History Alcohol intake: current Alcohol intake frequency: holidays/special occasions only Cigarette Packs Per Day: 1 Cigarettes Per Day: 20.0 Years Smoked: 30 Advance Directives: No Advance Directives Information Provided: Yes service: No Current occupational status: disabled Meds Allergies Allergy/AdvReac Type Severity Reaction Status Date / Time morphine [MORPHINE] Allergy Severe HIVES AND Verified 03/12/21 13:09 DIFFICULTY BREATHING, dyspnea, rash Penicillins Allergy Intermediate ITCHING Verified 03/12/21 13:09 Active Medications: Current Medications Acetaminophen (Acetaminophen Supp 650 Mg Supp.Rect) 650 mg TN Q6H PRN PRN Reason: Pain, Mild (Pain Scale 1-3) Albuterol Sulfate (Albuterol Sulfate 90 Mcg 8 Gm Inhaler) 2 puff INHALE Q4H PRN PRN Reason: Shortness of Breath/Wheezing Albuterol/Ipratropium (Albuterol/Iprat 2.5/0.5mg 3 Ml Ampul.Neb) 3 ml INHALE RQ4H PRN PRN Reason: Shortness of Breath/Wheezing Dextrose (Dextrose 50 % 25 Gm/50 Ml Vial) 25 gm IVPUSH Q15M PRN; Protocol PRN Reason: per Hypoglycemia Standing Ord. Enoxaparin Sodium (Enoxaparin Sodium 100 Mg/Ml Syringe) 75 mg SUBCUT Q24H [facility] Last Admin: 03/26/21 23:07 Dose: 75 mg Documented by: Glucose (Glucose Gel 15 Gm Gel..Gram.) 15 gm PO Q15M PRN; Protocol PRN Reason: per Hypoglycemia Standing Ord. Azithromycin 500 mg/ Sodium (Chloride) 250 mls @ 125 mls/hr IV Q24H [facility] Last Infusion: 03/27/21 02:23 Dose: Infused Documented by: Ceftriaxone Sodium 1 gm/ (Sodium Chloride) 50 mls @ 100 mls/hr IV Q24H [facility] Last Infusion: 03/27/21 00:00 Dose: Infused Documented by: Insulin Glargine (Insulin Glargine,Hum.Rec.Anlog 100 Unit/Ml 10 Ml Vial) 20 unit SUBCUT DAILY [facility] Last Admin: 03/27/21 04:59 Dose: 20 unit Documented by: Insulin Human Lispro (Insulin Lispro 100 Unit/Ml 3 Ml Vial) 0 unit SUBCUT QIDACHS [facility]; Protocol Last Admin: 03/27/21 11:06 Dose: 8 unit Documented by: Methylprednisolone Sodium Succinate (Methylprednisolone Sod Succ 40 Mg/Ml Vial) 40 mg IVPUSH Q6H [facility] Last Admin: 03/27/21 07:42 Dose: 40 mg Documented by: Morphine Sulfate (Morphine Sulfate 4 Mg/Ml Cartridge) 1 mg IVPUSH Q4H PRN; Protocol PRN Reason: Pain, Severe (Pain Scale 7-10) Morphine Sulfate (Morphine Sulfate 2 Mg/Ml Cartridge) 1 mg IVPUSH Q4H PRN; Protocol PRN Reason: Breakthrough Pain Last Admin: 03/27/21 03:55 Dose: 1 mg Documented by: Pharmacy Consult (Consult Rx Perform Med Rec) 1 each MISCELLANE ONCE PRN PRN Reason: Consult order Sodium Chloride (0.9 % Sodium Chloride Flush 3 Ml Syringe) 3 ml IVFLUSH QSHIFT ALEXANDRE Last Admin: 03/27/21 08:04 Dose: 3 ml Documented by: Home Medications Medication Instructions Recorded Confirmed Last Taken Type aripiprazole 5 mg tablet 5 mg PO DAILY 05/07/20 03/26/21 Unknown History aspirin 81 mg tablet 81 mg PO DAILY 05/07/20 03/26/21 Unknown History docusate sodium 100 mg capsule 100 mg PO BID 05/07/20 03/26/21 Unknown History sennosides 8.6 mg tablet (senna) 8.6 mg PO BEDTIME 05/07/20 03/26/21 Unknown History lisinopril 5 mg tablet 5 mg PO DAILY 10/24/20 03/26/21 Unknown History acetaminophen 325 mg tablet 650 mg PO Q6H PRN 03/26/21 03/26/21 Unknown History Physical Exam Vital Signs: Vital Signs: Last Vital Signs Temp 97.5 F 03/27/21 11:36 Pulse 94 03/27/21 11:36 Resp 22 H 03/27/21 11:36 BP 161/74 H 03/27/21 11:36 Pulse Ox 92 03/27/21 11:36 Body Mass Index 32.2 Neuro: Other: She was very anxious and nervous and sobbing and crying. She was saying something in Niuean. Because of the mask and the machine re it was difficult to figure out what she was saying. She did not follow any commands in Frisian. There was no obvious focal weakness. Face was symmetrical. Extraocular muscles seems to be intact. Plantars were withdrawing. Exam was limited. Results Labs CBC & Chem 7: 03/27/21 04:03 03/27/21 04:03 Labs: Short CBC 03/26/21 03/27/21 Range/Units 16:43 04:03 WBC 11.6 H 13.2 H (4.8-10.8) X10*3/uL Hgb 12.3 11.8 L (12.0-16.0) g/dl Hct 41.1 38.1 (37-47) % Plt Count 285 262 (160-400) X10*3/uL BMP 03/26/21 03/26/21 03/27/21 16:43 20:04 04:03 Sodium 133 L 136 139 Potassium 4.8 5.5 H 5.8 H Chloride 96 107 109 H Carbon Dioxide 17 L 21 L 23 BUN 60 H D 53 H 45 H Creatinine 2.41 H 1.80 H 1.41 H Calcium 8.7 D 7.6 L D 7.8 L Liver Function 03/26/21 03/26/21 Range/Units 16:43 20:04 Total Bilirubin 0.6 0.4 (0.0-1.0) mg/dL Direct Bilirubin 0.4 (0.0-0.5) mg/dL AST 80 H 71 H (5-31) U/L ALT 43 H 37 H (0-31) U/L Alkaline Phosphatase 205 H D 171 H (39-117) U/L Albumin 3.3 L 2.7 L (3.5-5.0) g/dL Urine 03/27/21 Range/Units 01:19 Urine Color YELLOW Urine Appearance TURBID Urine pH 6.0 (5.0-8.0) Ur Specific [place] 1.020 (1.005-1.025) Urine Protein 1+ H (NEG-TRACE) MG/DL Urine Glucose (UA) 500 H (NEG) MG/DL Noncontrast head CT did not reveal any significant abnormality. Chest x-ray was abnormal with worsening opacities. Blood sugar was in 400-500 range. COVID test was positive. Microbiology Microbiology Results: Microbiology 03/26/21 16:43 Blood - Venous Blood Culture - Preliminary Prelim: GNR Gram Stain only Assessment and Plan (1) Encephalopathy: Status: Acute Multifactorial encephalopathy with probably COVID pneumonia and significant hyperglycemia. It was difficult to exactly figure out if she was aphasic or not. At this time mainstay of management is management of pneumonia and electrolytes. Language disorder could be part of encephalopathy. Procedures Date of Service Date of Service: 03/27/21
--- NOTE | 2021-03-27 15:31 | PM.CNPUL ---
History of Present Illness History of Present Illness Consult date: 03/27/21 Requesting physician: Carlos Stuart Chief complaint: COVID pneumonia Narrative: 65-year-old lady with multiple medical issues including COPD, CAD, diastolic dysfunction, diabetes mellitus, prior CVA, hypertension COVID positive on 03/21/2021 admitted on 03/26/2021 with progressive shortness of breath. On ER evaluation patient noted to be significantly hypoxic requiring high-flow nasal cannula and hyperglycemic. She has been treated with insulin for diabetic hyperosmolar hyperglycemic state. She has been started on empiric broad-spectrum antibiotics and systemic glucocorticoids. Her perfusion scan was negative for perfusion defects. Patient's dyspnea worsened with administration of IV fluids and improved with subsequent diuresis. She denies productive cough of fevers. Review of Systems Review of Systems: Yes Unobtainable due to mental condition PMFSH Past Medical History Medical History Arthritis Atherosclerotic cardiovascular disease CAD (coronary artery disease) COPD (chronic obstructive pulmonary disease) CVA (cerebral vascular accident) Diabetes Diabetes type 2, uncontrolled Diabetic polyneuropathy associated with type 2 diabetes mellitus Dyslipidemia Essential hypertension GERD (gastroesophageal reflux disease) History of headache HTN (hypertension) Hx of osteopenia Hx of solitary pulmonary nodule Left hip pain snf (current) use of insulin Non-toxic multinodular goiter Obese On beta manolo at home Right hip pain Type 2 diabetes mellitus with unspecified complications Family History Family History Father Diabetes Mother Diabetes Hypertension Family/Other FH: mental illness Diabetes Hypertension Brother No problems noted. Sister No problems noted. Son No problems noted. Daughter No problems noted. Surgical History Surgical History H/O colonoscopy History of PTCA Hx of appendectomy Hx of cataract extraction Hx of section Hx of cholecystectomy Hx of heart artery stent Social History Social History Household Members: Family Housing: House Do you presently have visiting nurse or other home services: No Alcohol intake: current Alcohol intake frequency: holidays/special occasions only Patient Tobacco Use Status: Former Tobacco user Cigarette Packs Per Day: 1 Cigarettes Per Day: 20.0 Years Smoked: 30 Smoked in Last 30 Days: No Use of substances other than those prescribed or required for medical reasons: No Spiritual Healthcare Practices: Taoism Advance Directives: No Advance Directives Information Provided: Yes Recently lost weight without trying: No Nutrition Risks: No Nutritional Risk Patient : No : No Poor oral hygiene: No service: No Current occupational status: disabled Meds Allergies Allergy/AdvReac Type Severity Reaction Status Date / Time morphine [MORPHINE] Allergy Severe HIVES AND Verified 03/12/21 13:09 DIFFICULTY BREATHING, dyspnea, rash Penicillins Allergy Intermediate ITCHING Verified 03/12/21 13:09 Active Medications: Current Medications Acetaminophen (Acetaminophen Supp 650 Mg Supp.Rect) 650 mg NM Q6H PRN PRN Reason: Pain, Mild (Pain Scale 1-3) Albuterol Sulfate (Albuterol Sulfate 90 Mcg 8 Gm Inhaler) 2 puff INHALE Q4H PRN PRN Reason: Shortness of Breath/Wheezing Albuterol/Ipratropium (Albuterol/Iprat 2.5/0.5mg 3 Ml Ampul.Neb) 3 ml INHALE RQ4H PRN PRN Reason: Shortness of Breath/Wheezing Dextrose (Dextrose 50 % 25 Gm/50 Ml Vial) 25 gm IVPUSH Q15M PRN; Protocol PRN Reason: per Hypoglycemia Standing Ord. Enoxaparin Sodium (Enoxaparin Sodium 100 Mg/Ml Syringe) 75 mg SUBCUT Q24H [facility] Last Admin: 03/26/21 23:07 Dose: 75 mg Documented by: Glucose (Glucose Gel 15 Gm Gel..Gram.) 15 gm PO Q15M PRN; Protocol PRN Reason: per Hypoglycemia Standing Ord. Azithromycin 500 mg/ Sodium (Chloride) 250 mls @ 125 mls/hr IV Q24H [facility] Last Infusion: 03/27/21 02:23 Dose: Infused Documented by: Ceftriaxone Sodium 1 gm/ (Sodium Chloride) 50 mls @ 100 mls/hr IV Q24H [facility] Last Infusion: 03/27/21 00:00 Dose: Infused Documented by: Insulin Glargine (Insulin Glargine,Hum.Rec.Anlog 100 Unit/Ml 10 Ml Vial) 20 unit SUBCUT DAILY [facility] Last Admin: 03/27/21 04:59 Dose: 20 unit Documented by: Insulin Human Lispro (Insulin Lispro 100 Unit/Ml 3 Ml Vial) 0 unit SUBCUT QIDACHS [facility]; Protocol Last Admin: 03/27/21 11:06 Dose: 8 unit Documented by: Methylprednisolone Sodium Succinate (Methylprednisolone Sod Succ 40 Mg/Ml Vial) 40 mg IVPUSH Q6H [facility] Last Admin: 03/27/21 12:30 Dose: 40 mg Documented by: Morphine Sulfate (Morphine Sulfate 4 Mg/Ml Cartridge) 1 mg IVPUSH Q4H PRN; Protocol PRN Reason: Pain, Severe (Pain Scale 7-10) Morphine Sulfate (Morphine Sulfate 2 Mg/Ml Cartridge) 1 mg IVPUSH Q4H PRN; Protocol PRN Reason: Breakthrough Pain Last Admin: 03/27/21 12:30 Dose: 1 mg Documented by: Morphine Sulfate (Morphine Sulfate 2 Mg/Ml Cartridge) 1 mg IVPUSH Q4H PRN; Protocol PRN Reason: respiratory distress Pharmacy Consult (Consult Rx Perform Med Rec) 1 each MISCELLANE ONCE PRN PRN Reason: Consult order Sodium Chloride (0.9 % Sodium Chloride Flush 3 Ml Syringe) 3 [facility] Last Admin: 03/27/21 12:31 Dose: 3 ml Documented by: Home Medications Medication Instructions Recorded Confirmed Last Taken Type aripiprazole 5 mg tablet 5 mg PO DAILY 05/07/20 03/26/21 Unknown History aspirin 81 mg tablet 81 mg PO DAILY 05/07/20 03/26/21 Unknown History docusate sodium 100 mg capsule 100 mg PO BID 05/07/20 03/26/21 Unknown History sennosides 8.6 mg tablet (senna) 8.6 mg PO BEDTIME 05/07/20 03/26/21 Unknown History lisinopril 5 mg tablet 5 mg PO DAILY 10/24/20 03/26/21 Unknown History acetaminophen 325 mg tablet 650 mg PO Q6H PRN 03/26/21 03/26/21 Unknown History Physical Exam Vital Signs: Vital Signs: Last Vital Signs Temp 97.9 F 03/27/21 15:05 Pulse 86 03/27/21 15:05 Resp 20 03/27/21 15:05 BP 137/70 03/27/21 15:05 Pulse Ox 91 L 03/27/21 15:05 Body Mass Index 32.2 Const: General: no acute distress, alert, awake and anxious Eyes: Sclerae: sclerae normal EOM: EOMs intact bilaterally Neck: Neck: Yes no lymphadenopathy, Yes trachea midline and Yes supple Resp: Effort & Inspection: normal respiratory effort and no respiratory distress Auscultation: crackles (Diffuse bilateral) Cardio: Rate: regular rate Rhythm: regular rhythm Heart sounds: no gallops, no murmurs and no rubs GI: Palpation (GI): Soft to palpation and Other GI palpation findings present ( Nontender) Auscultation: normal bowel sounds Extrem: General: No clubbing, No cyanosis and Yes pedal edema (1+ bilateral) Results Laboratory Findings CBC and BMP: 03/27/21 04:03 03/27/21 04:03 Abnormal lab findings: Abnormal Labs 03/26/21 03/26/21 03/26/21 16:43 16:43 16:43 WBC 11.6 H Hgb MCH 24.7 L MCHC 29.9 L Immature Gran % (Auto) 1.5 H Neut % (Auto) 75.2 H Lymph % (Auto) 15.9 L Abs Immat Gran (auto) 0.17 H Absolute Neuts (auto) 8.7 H ABG pH at Pt Temp ABG pH (Temp Correct) ABG pCO2 at Pt Temp ABG pO2 at Pt Temp ABG pO2 (Temp Correct ABG HCO3 VBG pH VBG HCO3 Sodium 133 L Potassium Chloride Carbon Dioxide 17 L Anion Gap 25 H BUN 60 H D Creatinine 2.41 H POC Glucose Random Glucose 710 H* Lactic Acid 11.5 H* Lactic Acid Fup @ 2Hr Calcium AST 80 H ALT 43 H Alkaline Phosphatase 205 H D B-Natriuretic Peptide Albumin 3.3 L Urine Protein Urine Glucose (UA) Urine Blood Ur Leukocyte Esterase Urine WBC COVID-19 ([facility]) 03/26/21 03/26/21 03/26/21 16:43 16:43 17:13 WBC Hgb MCH MCHC Immature Gran % (Auto) Neut % (Auto) Lymph % (Auto) Abs Immat Gran (auto) Absolute Neuts (auto) ABG pH at Pt Temp ABG pH (Temp Correct) ABG pCO2 at Pt Temp ABG pO2 at Pt Temp ABG pO2 (Temp Correct ABG HCO3 VBG pH 7.22 L VBG HCO3 21 L Sodium Potassium Chloride Carbon Dioxide Anion Gap BUN Creatinine POC Glucose Random Glucose Lactic Acid Lactic Acid Fup @ 2Hr Calcium AST ALT Alkaline Phosphatase B-Natriuretic Peptide 132 H Albumin Urine Protein Urine Glucose (UA) Urine Blood Ur Leukocyte Esterase Urine WBC COVID-19 ([facility]) Positive A 03/26/21 03/26/21 03/26/21 17:22 17:27 17:39 WBC Hgb MCH MCHC Immature Gran % (Auto) Neut % (Auto) Lymph % (Auto) Abs Immat Gran (auto) Absolute Neuts (auto) ABG pH at Pt Temp ABG pH (Temp Correct) ABG pCO2 at Pt Temp ABG pO2 at Pt Temp ABG pO2 (Temp Correct ABG HCO3 VBG pH VBG HCO3 Sodium Potassium Chloride Carbon Dioxide Anion Gap BUN Creatinine POC Glucose > 600 H* > 600 H* > 600 H* Random Glucose Lactic Acid Lactic Acid Fup @ 2Hr Calcium AST ALT Alkaline Phosphatase B-Natriuretic Peptide Albumin Urine Protein Urine Glucose (UA) Urine Blood Ur Leukocyte Esterase Urine WBC COVID-19 ([facility]) 03/26/21 03/26/21 03/26/21 18:43 19:30 20:04 WBC Hgb MCH MCHC Immature Gran % (Auto) Neut % (Auto) Lymph % (Auto) Abs Immat Gran (auto) Absolute Neuts (auto) ABG pH at Pt Temp ABG pH (Temp Correct) ABG pCO2 at Pt Temp ABG pO2 at Pt Temp ABG pO2 (Temp Correct ABG HCO3 VBG pH VBG HCO3 Sodium Potassium 5.5 H Chloride Carbon Dioxide 21 L Anion Gap BUN 53 H Creatinine 1.80 H POC Glucose 494 H* 399 H* Random Glucose 545 H* Lactic Acid Lactic Acid Fup @ 2Hr Calcium 7.6 L D AST 71 H ALT 37 H Alkaline Phosphatase 171 H B-Natriuretic Peptide Albumin 2.7 L Urine Protein Urine Glucose (UA) Urine Blood Ur Leukocyte Esterase Urine WBC COVID-19 ([facility]) 03/26/21 03/26/21 03/26/21 20:05 21:07 22:27 WBC Hgb MCH MCHC Immature Gran % (Auto) Neut % (Auto) Lymph % (Auto) Abs Immat Gran (auto) Absolute Neuts (auto) ABG pH at Pt Temp 7.31 L ABG pH (Temp Correct) 7.32 L ABG pCO2 at Pt Temp 46 H ABG pO2 at Pt Temp 124 H ABG pO2 (Temp Correct 120 H ABG HCO3 VBG pH VBG HCO3 Sodium Potassium Chloride Carbon Dioxide Anion Gap BUN Creatinine POC Glucose 417 H* Random Glucose Lactic Acid Lactic Acid Fup @ 2Hr 2.5 H* Calcium AST ALT Alkaline Phosphatase B-Natriuretic Peptide Albumin Urine Protein Urine Glucose (UA) Urine Blood Ur Leukocyte Esterase Urine WBC COVID-19 ([facility]) 03/27/21 03/27/21 03/27/21 01:19 01:26 04:03 WBC 13.2 H Hgb 11.8 L MCH 24.9 L MCHC Immature Gran % (Auto) 1.0 H Neut % (Auto) 81.5 H Lymph % (Auto) 14.7 L Abs Immat Gran (auto) 0.13 H Absolute Neuts (auto) 10.8 H ABG pH at Pt Temp 7.34 L ABG pH (Temp Correct) 7.34 L ABG pCO2 at Pt Temp ABG pO2 at Pt Temp 61 L ABG pO2 (Temp Correct 60 L ABG HCO3 21 L VBG pH VBG HCO3 Sodium Potassium Chloride Carbon Dioxide Anion Gap BUN Creatinine POC Glucose Random Glucose Lactic Acid Lactic Acid Fup @ 2Hr Calcium AST ALT Alkaline Phosphatase B-Natriuretic Peptide Albumin Urine Protein 1+ H Urine Glucose (UA) 500 H Urine Blood 3+ H Ur Leukocyte Esterase 3+ H Urine WBC TNTC H COVID-19 ([facility]) 03/27/21 03/27/21 03/27/21 04:03 04:03 07:46 WBC Hgb MCH MCHC Immature Gran % (Auto) Neut % (Auto) Lymph % (Auto) Abs Immat Gran (auto) Absolute Neuts (auto) ABG pH at Pt Temp ABG pH (Temp Correct) ABG pCO2 at Pt Temp ABG pO2 at Pt Temp ABG pO2 (Temp Correct ABG HCO3 VBG pH VBG HCO3 Sodium Potassium 5.8 H Chloride 109 H Carbon Dioxide Anion Gap BUN 45 H Creatinine 1.41 H POC Glucose 375 H* Random Glucose 500 H* Lactic Acid Lactic Acid Fup @ 2Hr Calcium 7.8 L AST ALT Alkaline Phosphatase B-Natriuretic Peptide 384 H Albumin Urine Protein Urine Glucose (UA) Urine Blood Ur Leukocyte Esterase Urine WBC COVID-19 ([facility]) 03/27/21 10:53 WBC Hgb MCH MCHC Immature Gran % (Auto) Neut % (Auto) Lymph % (Auto) Abs Immat Gran (auto) Absolute Neuts (auto) ABG pH at Pt Temp ABG pH (Temp Correct) ABG pCO2 at Pt Temp ABG pO2 at Pt Temp ABG pO2 (Temp Correct ABG HCO3 VBG pH VBG HCO3 Sodium Potassium Chloride Carbon Dioxide Anion Gap BUN Creatinine POC Glucose 349 H Random Glucose Lactic Acid Lactic Acid Fup @ 2Hr Calcium AST ALT Alkaline Phosphatase B-Natriuretic Peptide Albumin Urine Protein Urine Glucose (UA) Urine Blood Ur Leukocyte Esterase Urine WBC COVID-19 ([facility]) Microbiology: Microbiology 03/26/21 16:43 Blood - Venous Blood Culture - Preliminary Prelim: GNR Gram Stain only Assessment and Plan (1) Acute respiratory distress syndrome (ARDS) due to COVID-19 virus: Status: Acute (2) Respiratory failure with hypoxia: Qualifiers: Chronicity: acute Qualified Code(s): J96.01 - Acute respiratory failure with hypoxia Status: Acute (3) Diastolic dysfunction: Status: Acute Impression: 65-year-old lady with underlying CAD, dCHF, COPD, COVID-19 positive admitted with progressive hypoxemia. Patient appears to have a combination of COVID-19 ARDS and at least some contribution from worsening of underlying diastolic congestive heart failure. Does not appear to have a bacterial pneumonia. No evidence of COPD exacerbation. Recommendation: Consider discontinuation of antibiotic coverage for community-acquired pneumonia. Agree with systemic glucocorticoids, consider switching to dexamethasone 6 mg daily. Continue to titrate of high-flow as tolerated. Agree with further diuresis. Will start on baricitinib. Procedures Date of Service Date of Service: 03/27/21
--- NOTE | 2021-03-27 15:36 | P.PNIM_ITS ---
Subjective Subjective Date of Service: 03/27/21 Interval History: Seen in f/u for acute hypoxic respiratory failure due to covid 19 pneumonia, she is severely hypoxic and requring maximum oxygen and thus far is maintain Oxygen saturation. She has had periods of anxiety but presently seems to be breathing much easier rate of about 20. Review of Systems Gen: no fever Resp: shortness of breath CV: no chest, no CHANDLER, no leg edema GI: No n/v, no abd pain Neuro/Psych: anxiety Physical Exam Vital Signs: Vital Signs: Last Vital Signs Temp 97.9 F 03/27/21 15:05 Pulse 86 03/27/21 15:05 Resp 20 03/27/21 15:31 BP 137/70 03/27/21 15:05 Pulse Ox 91 L 03/27/21 15:05 Body Mass Index 32.2 General: Alert , did not seem to be in acute respiraty distress at the time of my eval Resp: not accesrroy muscle use at this time, dimissed CVS: S1,S2,RRR GI: +BS, NT, no distention Skin: No rash Neuro: motor grossly intact Psych: appropriate affect Objective Data Active Medications Acetaminophen (Acetaminophen Supp 650 Mg Supp.Rect) 650 mg NM Q6H PRN PRN Reason: Pain, Mild (Pain Scale 1-3) Albuterol Sulfate (Albuterol Sulfate 90 Mcg 8 Gm Inhaler) 2 puff INHALE Q4H PRN PRN Reason: Shortness of Breath/Wheezing Albuterol/Ipratropium (Albuterol/Iprat 2.5/0.5mg 3 Ml Ampul.Neb) 3 ml INHALE RQ4H PRN PRN Reason: Shortness of Breath/Wheezing Dextrose (Dextrose 50 % 25 Gm/50 Ml Vial) 25 gm IVPUSH Q15M PRN; Protocol PRN Reason: per Hypoglycemia Standing Ord. Enoxaparin Sodium (Enoxaparin Sodium 100 Mg/Ml Syringe) 75 mg SUBCUT Q24H [facility] Last Admin: 03/26/21 23:07 Dose: 75 mg Documented by: NORMA Glucose (Glucose Gel 15 Gm Gel..Gram.) 15 gm PO Q15M PRN; Protocol PRN Reason: per Hypoglycemia Standing Ord. Azithromycin 500 mg/ Sodium (Chloride) 250 mls @ 125 mls/hr IV Q24H [facility] Last Infusion: 03/27/21 02:23 Dose: 0 mls/hr Documented by: NORMA Ceftriaxone Sodium 1 gm/ (Sodium Chloride) 50 mls @ 100 mls/hr IV Q24H [facility] Last Infusion: 03/27/21 00:00 Dose: 0 mls/hr Documented by: NORMA Insulin Glargine (Insulin Glargine,Hum.Rec.Anlog 100 Unit/Ml 10 Ml Vial) 20 unit SUBCUT DAILY [facility] Last Admin: 03/27/21 04:59 Dose: 20 unit Documented by: NORMA Insulin Human Lispro (Insulin Lispro 100 Unit/Ml 3 Ml Vial) 0 unit SUBCUT QIDACHS [facility]; Protocol Last Admin: 03/27/21 11:06 Dose: 8 unit Documented by: TONI Methylprednisolone Sodium Succinate (Methylprednisolone Sod Succ 40 Mg/Ml Vial) 40 mg IVPUSH Q6H [facility] Last Admin: 03/27/21 12:30 Dose: 40 mg Documented by: TONI Morphine Sulfate (Morphine Sulfate 4 Mg/Ml Cartridge) 1 mg IVPUSH Q4H PRN; Protocol PRN Reason: Pain, Severe (Pain Scale 7-10) Morphine Sulfate (Morphine Sulfate 2 Mg/Ml Cartridge) 1 mg IVPUSH Q4H PRN; Protocol PRN Reason: Breakthrough Pain Last Admin: 03/27/21 12:30 Dose: 1 mg Documented by: TONI Morphine Sulfate (Morphine Sulfate 2 Mg/Ml Cartridge) 1 mg IVPUSH Q4H PRN; Protocol PRN Reason: respiratory distress Pharmacy Consult (Consult Rx Perform Med Rec) 1 each MISCELLANE ONCE PRN PRN Reason: Consult order Sodium Chloride (0.9 % Sodium Chloride Flush 3 Ml Syringe) 3 ml IVFLUSH QSHIFT [facility] Last Admin: 03/27/21 12:31 Dose: 3 ml Documented by: TONI Labs CBC & Chem 7: 03/27/21 04:03 03/27/21 04:03 Labs: Laboratory Results - last 24 hr 03/26/21 03/26/21 03/26/21 16:43 16:43 16:43 MCV 82.7 MCH 24.7 L MCHC 29.9 L RDW 14.8 Plt Count 285 MPV 11.1 Immature Gran % (Auto) 1.5 H Neut % (Auto) 75.2 H Lymph % (Auto) 15.[address] [place] % (Auto) 7.2 Eos % (Auto) 0.0 Baso % (Auto) 0.2 Lymph # (Auto) 1.8 [place] # (Auto) 0.8 Eos # (Auto) 0.0 Baso # (Auto) 0.0 Abs Immat Gran (auto) 0.17 H Absolute Neuts (auto) 8.7 H Absolute Nucleated RBC 0.000 Nucleated RBC % (auto) 0.0 O2 Saturation ABG pH at Pt Temp ABG pH (Temp Correct) ABG pCO2 at Pt Temp ABG pCO2 (Temp Corrct ABG pO2 at Pt Temp ABG pO2 (Temp Correct ABG HCO3 ABG Base Excess (Actual) VBG pH VBG pCO2 VBG pO2 VBG HCO3 VBG O2 Saturation VBG Base Excess Anion Gap 25 H Estim Creat Clear Calc 20.7 Estimated GFR 20 POC Glucose Random Glucose 710 H* Lactic Acid 11.5 H* Lactic Acid Fup @ 2Hr Lactic Acid Fup @ 4Hr Calcium 8.7 D Total Bilirubin 0.6 Direct Bilirubin 0.4 AST 80 H ALT 43 H Alkaline Phosphatase 205 H D Troponin I High Sens B-Natriuretic Peptide NT-Pro-B Natriuret Pep Total Protein 8.0 Albumin 3.3 L Urine Color Urine Appearance Urine pH Ur Specific Pray Urine Protein Urine Glucose (UA) Urine Ketones Urine Blood Urine Nitrite Ur Leukocyte Esterase Urine RBC Urine WBC Ur Squamous Epith Cells Urine Bacteria Acetone, Qual Negative COVID-19 ([facility]) COVID-19 Clin Com 03/26/21 03/26/21 03/26/21 16:43 16:43 17:13 MCV MCH MCHC RDW Plt Count MPV Immature Gran % (Auto) Neut % (Auto) Lymph % (Auto) [place] % (Auto) Eos % (Auto) Baso % (Auto) Lymph # (Auto) [place] # (Auto) Eos # (Auto) Baso # (Auto) Abs Immat Gran (auto) Absolute Neuts (auto) Absolute Nucleated RBC Nucleated RBC % (auto) O2 Saturation ABG pH at Pt Temp ABG pH (Temp Correct) ABG pCO2 at Pt Temp ABG pCO2 (Temp Corrct ABG pO2 at Pt Temp ABG pO2 (Temp Correct ABG HCO3 ABG Base Excess (Actual) VBG pH 7.22 L VBG pCO2 51 VBG pO2 46 VBG HCO3 21 L VBG O2 Saturation 64.0 VBG Base Excess -6.3 Anion Gap Estim Creat Clear Calc Estimated GFR POC Glucose Random Glucose Lactic Acid Lactic Acid Fup @ 2Hr Lactic Acid Fup @ 4Hr Calcium Total Bilirubin Direct Bilirubin AST ALT Alkaline Phosphatase Troponin I High Sens 16.2 B-Natriuretic Peptide 132 H NT-Pro-B Natriuret Pep Total Protein Albumin Urine Color Urine Appearance Urine pH Ur Specific Pray Urine Protein Urine Glucose (UA) Urine Ketones Urine Blood Urine Nitrite Ur Leukocyte Esterase Urine RBC Urine WBC Ur Squamous Epith Cells Urine Bacteria Acetone, Qual COVID-19 ([facility]) Positive A COVID-19 Compact Imaging Com See Note 03/26/21 03/26/21 03/26/21 17:22 17:27 17:39 MCV MCH MCHC RDW Plt Count MPV Immature Gran % (Auto) Neut % (Auto) Lymph % (Auto) [place] % (Auto) Eos % (Auto) Baso % (Auto) Lymph # (Auto) [place] # (Auto) Eos # (Auto) Baso # (Auto) Abs Immat Gran (auto) Absolute Neuts (auto) Absolute Nucleated RBC Nucleated RBC % (auto) O2 Saturation ABG pH at Pt Temp ABG pH (Temp Correct) ABG pCO2 at Pt Temp ABG pCO2 (Temp Corrct ABG pO2 at Pt Temp ABG pO2 (Temp Correct ABG HCO3 ABG Base Excess (Actual) VBG pH VBG pCO2 VBG pO2 VBG HCO3 VBG O2 Saturation VBG Base Excess Anion Gap Estim Creat Clear Calc Estimated GFR POC Glucose > 600 H* > 600 H* > 600 H* Random Glucose Lactic Acid Lactic Acid Fup @ 2Hr Lactic Acid Fup @ 4Hr Calcium Total Bilirubin Direct Bilirubin AST ALT Alkaline Phosphatase Troponin I High Sens B-Natriuretic Peptide NT-Pro-B Natriuret Pep Total Protein Albumin Urine Color Urine Appearance Urine pH Ur Specific Pray Urine Protein Urine Glucose (UA) Urine Ketones Urine Blood Urine Nitrite Ur Leukocyte Esterase Urine RBC Urine WBC Ur Squamous Epith Cells Urine Bacteria Acetone, Qual COVID-19 ([facility]) COVID-19 Clin Com 03/26/21 03/26/21 03/26/21 18:43 19:30 20:04 MCV MCH MCHC RDW Plt Count MPV Immature Gran % (Auto) Neut % (Auto) Lymph % (Auto) [place] % (Auto) Eos % (Auto) Baso % (Auto) Lymph # (Auto) [place] # (Auto) Eos # (Auto) Baso # (Auto) Abs Immat Gran (auto) Absolute Neuts (auto) Absolute Nucleated RBC Nucleated RBC % (auto) O2 Saturation ABG pH at Pt Temp ABG pH (Temp Correct) ABG pCO2 at Pt Temp ABG pCO2 (Temp Corrct ABG pO2 at Pt Temp ABG pO2 (Temp Correct ABG HCO3 ABG Base Excess (Actual) VBG pH VBG pCO2 VBG pO2 VBG HCO3 VBG O2 Saturation VBG Base Excess Anion Gap 14 Estim Creat Clear Calc 27.7 Estimated GFR 28 POC Glucose 494 H* 399 H* Random Glucose 545 H* Lactic Acid Lactic Acid Fup @ 2Hr Lactic Acid Fup @ 4Hr Calcium 7.6 L D Total Bilirubin 0.4 Direct Bilirubin AST 71 H ALT 37 H Alkaline Phosphatase 171 H Troponin I High Sens B-Natriuretic Peptide NT-Pro-B Natriuret Pep Total Protein 6.8 Albumin 2.7 L Urine Color Urine Appearance Urine pH Ur Specific Pray Urine Protein Urine Glucose (UA) Urine Ketones Urine Blood Urine Nitrite Ur Leukocyte Esterase Urine RBC Urine WBC Ur Squamous Epith Cells Urine Bacteria Acetone, Qual COVID-19 ([facility]) COVID-19 Clin Com 03/26/21 03/26/21 03/26/21 20:05 21:07 22:27 MCV MCH MCHC RDW Plt Count MPV Immature Gran % (Auto) Neut % (Auto) Lymph % (Auto) [place] % (Auto) Eos % (Auto) Baso % (Auto) Lymph # (Auto) [place] # (Auto) Eos # (Auto) Baso # (Auto) Abs Immat Gran (auto) Absolute Neuts (auto) Absolute Nucleated RBC Nucleated RBC % (auto) O2 Saturation 99.0 ABG pH at Pt Temp 7.31 L ABG pH (Temp Correct) 7.32 L ABG pCO2 at Pt Temp 46 H ABG pCO2 (Temp Corrct 45 ABG pO2 at Pt Temp 124 H ABG pO2 (Temp Correct 120 H ABG HCO3 24 ABG Base Excess (Actual) -2.3 VBG pH VBG pCO2 VBG pO2 VBG HCO3 VBG O2 Saturation VBG Base Excess Anion Gap Estim Creat Clear Calc Estimated GFR POC Glucose Random Glucose Lactic Acid Lactic Acid Fup @ 2Hr 2.5 H* Lactic Acid Fup @ 4Hr 1.7 Calcium Total Bilirubin Direct Bilirubin AST ALT Alkaline Phosphatase Troponin I High Sens B-Natriuretic Peptide NT-Pro-B Natriuret Pep Total Protein Albumin Urine Color Urine Appearance Urine pH Ur Specific Pray Urine Protein Urine Glucose (UA) Urine Ketones Urine Blood Urine Nitrite Ur Leukocyte Esterase Urine RBC Urine WBC Ur Squamous Epith Cells Urine Bacteria Acetone, Qual COVID-19 ([facility]) COVID-19 Clin Com 03/26/21 03/27/21 03/27/21 22:27 01:19 01:26 MCV MCH MCHC RDW Plt Count MPV Immature Gran % (Auto) Neut % (Auto) Lymph % (Auto) [place] % (Auto) Eos % (Auto) Baso % (Auto) Lymph # (Auto) [place] # (Auto) Eos # (Auto) Baso # (Auto) Abs Immat Gran (auto) Absolute Neuts (auto) Absolute Nucleated RBC Nucleated RBC % (auto) O2 Saturation 87.0 ABG pH at Pt Temp 7.34 L ABG pH (Temp Correct) 7.34 L ABG pCO2 at Pt Temp 39 ABG pCO2 (Temp Corrct 39 ABG pO2 at Pt Temp 61 L ABG pO2 (Temp Correct 60 L ABG HCO3 21 L ABG Base Excess (Actual) -3.8 VBG pH VBG pCO2 VBG pO2 VBG HCO3 VBG O2 Saturation VBG Base Excess Anion Gap Estim Creat Clear Calc Estimated GFR POC Glucose 417 H* Random Glucose Lactic Acid Lactic Acid Fup @ 2Hr Lactic Acid Fup @ 4Hr Calcium Total Bilirubin Direct Bilirubin AST ALT Alkaline Phosphatase Troponin I High Sens B-Natriuretic Peptide NT-Pro-B Natriuret Pep Total Protein Albumin Urine Color YELLOW Urine Appearance TURBID Urine pH 6.0 Ur Specific Pray 1.020 Urine Protein 1+ H Urine Glucose (UA) 500 H Urine Ketones NEG Urine Blood 3+ H Urine Nitrite NEG Ur Leukocyte Esterase 3+ H Urine RBC 1-4 Urine WBC TNTC H Ur Squamous Epith Cells 4+ Urine Bacteria 4+ Acetone, Qual COVID-19 ([facility]) COVID-19 Clin Com 09/30/21 09/30/21 09/30/21 04:03 04:03 04:03 MCV 80.4 MCH 24.9 L MCHC 31.0 RDW 15.0 Plt Count 262 MPV 10.9 Immature Gran % (Auto) 1.0 H Neut % (Auto) 81.5 H Lymph % (Auto) 14.[address] % (Auto) 2.6 Eos % (Auto) 0.0 Baso % (Auto) 0.2 Lymph # (Auto) 1.9 [place] # (Auto) 0.3 Eos # (Auto) 0.0 Baso # (Auto) 0.0 Abs Immat Gran (auto) 0.13 H Absolute Neuts (auto) 10.8 H Absolute Nucleated RBC 0.000 Nucleated RBC % (auto) 0.0 O2 Saturation ABG pH at Pt Temp ABG pH (Temp Correct) ABG pCO2 at Pt Temp ABG pCO2 (Temp Corrct ABG pO2 at Pt Temp ABG pO2 (Temp Correct ABG HCO3 ABG Base Excess (Actual) VBG pH VBG pCO2 VBG pO2 VBG HCO3 VBG O2 Saturation VBG Base Excess Anion Gap 13 Estim Creat Clear Calc 35.4 Estimated GFR 37 POC Glucose Random Glucose 500 H* Lactic Acid Lactic Acid Fup @ 2Hr Lactic Acid Fup @ 4Hr Calcium 7.8 L Total Bilirubin Direct Bilirubin AST ALT Alkaline Phosphatase Troponin I High Sens B-Natriuretic Peptide NT-Pro-B Natriuret Pep Cancelled Total Protein Albumin Urine Color Urine Appearance Urine pH Ur Specific Pray Urine Protein Urine Glucose (UA) Urine Ketones Urine Blood Urine Nitrite Ur Leukocyte Esterase Urine RBC Urine WBC Ur Squamous Epith Cells Urine Bacteria Acetone, Qual COVID-19 ([facility]) COVID-19 Clin Com 03/27/21 03/27/21 03/27/21 04:03 07:46 10:53 MCV MCH MCHC RDW Plt Count MPV Immature Gran % (Auto) Neut % (Auto) Lymph % (Auto) [place] % (Auto) Eos % (Auto) Baso % (Auto) Lymph # (Auto) [place] # (Auto) Eos # (Auto) Baso # (Auto) Abs Immat Gran (auto) Absolute Neuts (auto) Absolute Nucleated RBC Nucleated RBC % (auto) O2 Saturation ABG pH at Pt Temp ABG pH (Temp Correct) ABG pCO2 at Pt Temp ABG pCO2 (Temp Corrct ABG pO2 at Pt Temp ABG pO2 (Temp Correct ABG HCO3 ABG Base Excess (Actual) VBG pH VBG pCO2 VBG pO2 VBG HCO3 VBG O2 Saturation VBG Base Excess Anion Gap Estim Creat Clear Calc Estimated GFR POC Glucose 375 H* 349 H Random Glucose Lactic Acid Lactic Acid Fup @ 2Hr Lactic Acid Fup @ 4Hr Calcium Total Bilirubin Direct Bilirubin AST ALT Alkaline Phosphatase Troponin I High Sens B-Natriuretic Peptide 384 H NT-Pro-B Natriuret Pep Total Protein Albumin Urine Color Urine Appearance Urine pH Ur Specific Pray Urine Protein Urine Glucose (UA) Urine Ketones Urine Blood Urine Nitrite Ur Leukocyte Esterase Urine RBC Urine WBC Ur Squamous Epith Cells Urine Bacteria Acetone, Qual COVID-19 ([facility]) COVID-19 Clin Com Microbiology Microbiology Results: Microbiology 03/26/21 16:43 Blood Culture - Preliminary Blood - Venous Prelim: GNR Gram Stain only Assessment and Plan (1) Acute respiratory distress syndrome (ARDS) due to COVID-19 virus: Status: Acute (2) UTI (urinary tract infection): Status: Acute (3) Bacteremia: Status: Acute Assessment and Plan: \65-year-old female with a past medical history of hypertension, hyperlipidemia, diabetes, CAD, mild aortic stenosis; last echo showed EF of 60-65%; COPD; GERD, goiter, osteoarthritis, osteoporosis, pulmonary nodule, fully vaccinated for covid 19 and here with severe, acute hypoxic respiratory failure due to covid 19-PNA h. Acute hypoxic respiratory failure Covid 19 pneumonia -Suplemental oxygen via high flow with goal of O2 greater than 90 % -IV Dexamethasone -cose monitoring of respiratory, should she become more hypoxic on present Oxygen she will need escalation of care to the ICU and I discussed this with Dr. Alejandrina ortiz her in pumonary consultation -VQ scan is negative for PE so stop therapeutic Lovenox -Morphine or dilaudid for respiratory distress, no Benzos Sepsis due to UTI Gram negative josiane bacteremia --Continue Ceftriaxone follow culture sensitivity Lactic acidosis--d/t hypoxia and improved Diabetes/hyperglycemia:?Insulin therapy with Lantus and Sliding scke SUDEEP:? Likely pre renal state, and seem to have improved with IVF, but has been given Lasix that can make it worse . ?? Aphasia:? Patient unable to speak any words when asked for questions.? Question anxiety versus anoxic injury. CT head- negative. Neurology consult.? Dysphagia screen. Leg pains:?Negative DVT by US Quality Stroke Does the patient have a stroke diagnosis?: No VTE Prior VTE?: No VTE Risk Level:: Medical - moderate - high VTE Device Contraindication: Treatment Not Indicated VTE Drug Contraindication: N/A - Med Ordered
[2021-03-27 16:32] LABS: Glucose, Whole Blood 244 mg/dL (60-115)
--- NOTE | 2021-03-27 17:20 | P.EN_ITS ---
Event Note Date of Service: 03/27/21 Event Note: I reasssed the patient who seemed fairly comfortable, with no agit ations, although I am told that from time to time she workup with become highly anxious panic cane. We should avoid IV using benzodiazepine in her as this could worsen her respiratory status and we may use morphine or Dilaudid to control respiratory distress. I spoke to her daughter over the phone and updated her and let her know that the patient is a very sick and that should she gets any worse she will need to be managed in the ICU. ICU doctor is aware.
--- NOTE | 2021-03-27 19:19 | PC.NURSE ---
Admission assessment completed with the assistance of the daughter and HCP, Lillie, over the telephone. Since patient is unable to answer questions at this time r/t confusion, it was confirmed with patient's daughter/HCP that patient is allergic to morphine. Daughter/HCP stated that patient gets hives and itchiness as a reaction. MD made aware and decision was made to keep PRN morphine for anxiety. Several times, patient awoke extremely anxious and in a panic, stating that she could not breathe, attempted to get OOB and her SpO2 dropped to the 50's. Morphine IVP was given for anxious behavior that risked patient's safety and patient was observed closely thereafter. No allergic reactions observed at this time. Patient's SpO2 is 90-95% at rest on high flow 55L and non-rebreather 100%.
[2021-03-27 20:59] LABS: Glucose, Whole Blood 241 mg/dL (60-115)
[2021-03-27 22:02] LABS: Anion Gap 13 (12-20); Carbon Dioxide 29 mmol/L (22-29); Chloride 110 mmol/L (96-108); Potassium 4.8 mmol/L (3.3-5.1); Sodium 147 mmol/L (135-145)
[2021-03-27] MEDS: Enoxaparin Sodium 100 MG/ML SYRINGE 75 MG SUBCUT (22:11)
[2021-03-27] MEDS: cefTRIAXone sodium 1 GM in 0.9 % Sodium Chloride 50 ML IV (22:12)
[2021-03-27] MEDS: LORazepam 2 MG/ML VIAL 0.5 MG IVPUSH (22:41)
[2021-03-28] VITALS (17 sets, daily range): BP systolic 140–186; BP diastolic 76–88; PULSE 92–111; RESP 18–28; TEMP 36.1–37.1; O2SAT 91–100
[2021-03-28] MEDS: Morphine Sulfate 4 MG/ML CARTRIDGE 1 MG IVPUSH ×3 (00:20→20:08)
[2021-03-28] MEDS: OLANZapine 10 MG VIAL 5 MG IM (02:08)
[2021-03-28] MEDS: Morphine Sulfate 2 MG/ML CARTRIDGE 1 MG IVPUSH ×2 (05:47→15:26)
--- NOTE | 2021-03-28 06:21 | MHC.HEMONC ---
Pt restless and anxious throughtout the night. Would have periods of where she was quiet and appeared to be sleeping but would wake up anxious and pull mask and highflow off. Undressing and attempting to get out of bed. Pt desat's to 80's during these episodes. notified and ordered Ativan around 2230-given with short term effect. Morphine 1 mg given at 0020, again with short term effect. called again around 0200. Ordered Zyprexa 5mg IM-given. Pt then slept until 545 when she woke again pulling mask and highflow off as well as attempting to get out of bed. Morphine 1 mg given for anxiety and restlessness.
[2021-03-28 07:30] LABS: Hematocrit 41.7 % (37-47); Hemoglobin 12.7 g/dl (12.0-16.0); Mean Corpuscular HGB Conc 30.5 g/dl (31.0-35.0); Mean Corpuscular Volume 81.9 fL (80-98); Mean Platelet Volume 11.3 fL (9.4-12.3); Platelet Count 246 X10*3/uL (160-400); Red Blood Count 5.09 X10*6/uL (4.20-5.50); Red Cell Distribution Width 15.6 % (11.0-16.0); White Blood Count 17.9 X10*3/uL (4.8-10.8)
[2021-03-28 07:58] LABS: Glucose, Whole Blood 298 mg/dL (60-115)
[2021-03-28 08:00] LABS: Anion Gap 18 (12-20); Blood Urea Nitrogen 40 mg/dL (9-16); Carbon Dioxide 23 mmol/L (22-29); Chloride 114 mmol/L (96-108); Estimated Glomerular Filt Rate 57; Glucose Random 315 mg/dL (60-115); Potassium 5.5 mmol/L (3.3-5.1); Sodium 149 mmol/L (135-145)
[2021-03-28 08:08] LABS: Calcium 8.9 mg/dL (8.4-10.2)
[2021-03-28] MEDS: Insulin Glargine,Hum.rec.anlog 100 UNIT/ML 10 ML VIAL 20 UNIT SUBCUT (08:19)
[2021-03-28] MEDS: methylPREDNISolone Sod Succ 40 MG/ML VIAL IVPUSH (08:19)
[2021-03-28] MEDS: 0.9 % Sodium Chloride Flush 3 ML SYRINGE IVFLUSH ×2 (08:19→15:27)
[2021-03-28] MEDS: Insulin Lispro 100 UNIT/ML 3 ML VIAL SUBCUT ×3 (08:20→16:05)
--- NOTE | 2021-03-28 10:16 | HO.PM.IMPN ---
Subjective Subjective Date of Service: 03/28/21 Interval History: Seen in follow-up for acute hypoxic respiratory failure due to severe COVID infection, she is persistently have toxic on now both high-flow and non-rebreather. She gets severe episode of anxiety agitation and will take off oxygen constantly, she is not taking anything by mouth at the present time. Review of Systems Review of Systems: Yes Unobtainable due to mental status Physical Exam Vital Signs: Vital Signs: Last Vital Signs Temp 97.9 F 03/28/21 08:00 Pulse 108 H 03/28/21 08:00 Resp 22 H 03/28/21 08:00 BP 158/86 H 03/28/21 08:00 Pulse Ox 94 03/28/21 08:00 Body Mass Index 32.2 General: she is not alert, she is confused, was relatively calm when I saw her Resp: she is breathing easy, difficulty to assess lung auscultation as not able to turn or sit CVS: S1,S2,RRR GI: +BS, NT, no distention Skin: No rash Neuro: moves extremites freely Psych: flat Objective Data Active Medications Acetaminophen (Acetaminophen Supp 650 Mg Supp.Rect) 650 mg NC Q6H PRN PRN Reason: Pain, Mild (Pain Scale 1-3) Albuterol Sulfate (Albuterol Sulfate 90 Mcg 8 Gm Inhaler) 2 puff INHALE Q4H PRN PRN Reason: Shortness of Breath/Wheezing Albuterol/Ipratropium (Albuterol/Iprat 2.5/0.5mg 3 Ml Ampul.Neb) 3 ml INHALE RQ4H PRN PRN Reason: Shortness of Breath/Wheezing Baricitinib (Baricitinib 2 Mg Tablet) 2 mg PO DAILY [facility] Last Admin: 03/28/21 08:22 Dose: Not Given Documented by: LUCRECIA Non-Admin Reason: NPO Dextrose (Dextrose 50 % 25 Gm/50 Ml Vial) 25 gm IVPUSH Q15M PRN; Protocol PRN Reason: per Hypoglycemia Standing Ord. Enoxaparin Sodium (Enoxaparin Sodium 100 Mg/Ml Syringe) 75 mg SUBCUT Q24H [facility] Last Admin: 03/27/21 22:11 Dose: 75 mg Documented by: SYED Glucose (Glucose Gel 15 Gm Gel..Gram.) 15 gm PO Q15M PRN; Protocol PRN Reason: per Hypoglycemia Standing Ord. Haloperidol Lactate (Haloperidol Lactate 5 Mg/Ml Vial) 0.5 mg IM Q3H PRN PRN Reason: Agitation Azithromycin 500 mg/ Sodium (Chloride) 250 mls @ 125 mls/hr IV Q24H [facility] Last Infusion: 03/28/21 00:53 Dose: 0 mls/hr Documented by: AME Ceftriaxone Sodium 1 gm/ (Sodium Chloride) 50 mls @ 100 mls/hr IV Q24H [facility] Last Infusion: 03/27/21 23:09 Dose: 0 mls/hr Documented by: AME Insulin Glargine (Insulin Glargine,Hum.Rec.Anlog 100 Unit/Ml 10 Ml Vial) 20 unit SUBCUT DAILY [facility] Last Admin: 03/28/21 08:19 Dose: 20 unit Documented by: LUCRECIA Insulin Human Lispro (Insulin Lispro 100 Unit/Ml 3 Ml Vial) 0 unit SUBCUT QIDACHS [facility]; Protocol Last Admin: 03/28/21 08:20 Dose: 6 unit Documented by: LUCRECIA Methylprednisolone Sodium Succinate (Methylprednisolone Sod Succ 40 Mg/Ml Vial) 40 mg IVPUSH Q6H [facility] Last Admin: 03/28/21 08:19 Dose: 40 mg Documented by: LUCRECIA Morphine Sulfate (Morphine Sulfate 4 Mg/Ml Cartridge) 1 mg IVPUSH Q4H PRN; Protocol PRN Reason: Pain, Severe (Pain Scale 7-10) Last Admin: 03/28/21 00:20 Dose: 1 mg Documented by: SYED Morphine Sulfate (Morphine Sulfate 2 Mg/Ml Cartridge) 1 mg IVPUSH Q4H PRN; Protocol PRN Reason: respiratory distress Last Admin: 03/28/21 05:47 Dose: 1 mg Documented by: SYED Pharmacy Consult (Consult Rx Perform Med Rec) 1 each MISCELLANE ONCE PRN PRN Reason: Consult order Sodium Chloride (0.9 % Sodium Chloride Flush 3 Ml Syringe) 3 ml IVFLUSH QSHIFT [facility] Last Admin: 03/28/21 08:19 Dose: 3 ml Documented by: LUCRECIA Labs CBC & Chem 7: 03/28/21 06:23 03/28/21 06:23 Labs: Laboratory Results - last 24 hr 03/27/21 03/27/21 03/27/21 10:53 16:02 20:37 MCV MCH MCHC RDW Plt Count MPV Absolute Nucleated RBC Nucleated RBC % (auto) Anion Gap Estim Creat Clear Calc Estimated GFR POC Glucose 349 H 244 H 241 H Random Glucose Calcium C-Reactive Protein 03/27/21 03/28/21 03/28/21 21:32 06:23 06:23 MCV 81.9 MCH 25.0 L MCHC 30.5 L RDW 15.6 Plt Count 246 MPV 11.3 Absolute Nucleated RBC 0.000 Nucleated RBC % (auto) 0.0 Anion Gap 13 18 Estim Creat Clear Calc 51.0 Estimated GFR 57 POC Glucose Random Glucose 315 H Calcium 8.9 D C-Reactive Protein 9.80 H 03/28/21 07:43 MCV MCH MCHC RDW Plt Count MPV Absolute Nucleated RBC Nucleated RBC % (auto) Anion Gap Estim Creat Clear Calc Estimated GFR POC Glucose 298 H Random Glucose Calcium C-Reactive Protein Microbiology Microbiology Results: Microbiology 03/27/21 Unknown Urine Culture - Preliminary Urine Catheterized - Rashid Catheter Culture in progress. 03/26/21 16:43 Blood Culture - Preliminary Blood - Venous Gram negative josiane 03/26/21 16:43 Blood Culture - Preliminary Blood - Venous No growth after 24 hours. Assessment and Plan (1) Acute respiratory distress syndrome (ARDS) due to COVID-19 virus: Status: Acute (2) UTI (urinary tract infection): Status: Acute (3) Bacteremia: Status: Acute Assessment and Plan: 65-year-old female with a past medical history of hypertension, hyperlipidemia, diabetes, CAD, mild aortic stenosis; last echo showed EF of 60-65%; COPD; GERD, goiter, osteoarthritis, osteoporosis, pulmonary nodule, fully vaccinated for covid 19 and here with severe, acute hypoxic respiratory failure due to covid 19-PNA h. Acute hypoxic respiratory failure Covid 19 pneumonia -Suplemental oxygen via high flow with goal of O2 greater than 90 % -IV Dexamethasone -cose monitoring of respiratory, should she become more hypoxic on present Oxygen she will need escalation of care to the ICU and I discussed this with Dr. Alejandrina ortiz her in pumonary consultation -VQ scan is negative for PE so stop therapeutic Lovenox -Morphine or dilaudid for respiratory distress, no Benzos -Pulmonology started Baricitinib but she has not been able to take it by mouth Sepsis due to UTI Gram negative josiane bacteremia --Continue Ceftriaxone follow culture sensitivity Lactic acidosis--d/t hypoxia and improved Diabetes/hyperglycemia:?Insulin therapy with Lantus and Sliding scke Metabolic encephalopathy causing agitation likely from covid, hypoxia she's not able to take oral, benzo can effect respiratoy status, will try morphine for respiratory distress and IM Haldol to control agitation in extreme cases. SUDEEP:? Likely pre renal, now resolved. Hypernatremia--d/t decrease oral water. will give D5 or put in NGT and give med and water that way . ?? Aphasia:? Patient unable to speak any words when asked for questions.? Question anxiety versus anoxic injury. CT head- negative. Neurology consult.? Dysphagia screen. Leg pains:?Negative DVT by US Quality Stroke Does the patient have a stroke diagnosis?: No VTE Prior VTE?: No VTE Risk Level:: Medical - moderate - high VTE Device Contraindication: Treatment Not Indicated VTE Drug Contraindication: N/A - Med Ordered
[2021-03-28] MEDS: Haloperidol Lactate 5 MG/ML VIAL IM (10:24)
--- NOTE | 2021-03-28 10:30 | CONS_ITS ---
DATE OF SERVICE: 03/27/2021 REASON FOR CONSULTATION: I was asked to see the patient to assist in evaluation and management of patient's hyperkalemia and acute kidney injury with a creatinine of 2.41 yesterday on admission, whereas her baseline creatinine is 0.7 to 0.9. She had potassium as high as 5.8 early this morning. This was in the context of severe hyperglycemia, sugars around 500. In summary, the patient is a 65-year-old female with a history of hypertension, hyperlipidemia, diabetes, coronary artery disease, was described as mild aortic stenosis with heart failure with preserved EF of 60% to 65%, COPD, GERD, osteoporosis, who presented to the hospital with shortness of breath. Apparently, the electronic medical record states the patient has not been feeling well for the past several weeks, complaining of some leg pains, and she had a COVID test done on Wednesday that was positive despite having received COVID vaccine, I believe back in August. In the emergency room, she was lethargic, barely responsive to commands, and was noted to be very hypoxic with sats of 60%. She was noted to be very hyperglycemic with elevated lactate level, blood sugar was 700. She was given IV fluids and her lactate level improved. She is admitted to the hospital in the COVID isolation and is on the high flex oxygen. She has been evaluated by Pulmonary. She was given some diuretics to try and optimize her volume status given her tenuous respiratory status. There was concern about a PE. She has been anticoagulated, had a V/Q scan that was negative. Information was obtained from electronic medical record as the patient is not able to provide any information. PAST MEDICAL HISTORY: Quite extensive and as alluded to above, includes a host of chronic medical problems including hypertension, hyperlipidemia, diabetes, coronary artery disease, mild aortic stenosis, heart failure with preserved EF, COPD, GERD, goiter, degenerative joint disease, osteoporosis, pulmonary nodule, polyneuropathy, seen by Neurology in the past, obesity are all listed. MEDICATIONS ON ADMISSION: Listed as including aspirin, lisinopril, but this does not appear to be the complete list of her medications. Her current medications here include IV azithromycin and ceftriaxone. She is getting Solu-Medrol, Lovenox, insulin. Initially, she received IV fluids and then she got IV Lasix. She is a smoker. Rare alcohol use. No illicit drug use. REVIEW OF SYSTEMS: Not obtainable. ALLERGIES: LISTED TO MORPHINE AND PENICILLIN. PHYSICAL EXAMINATION: GENERAL: She is minimally responsive on high flex oxygen. VITAL SIGNS: Blood pressure 160/80 with heart rate in the 80s. She is 91% on high-flow oxygen. HEENT: Head is atraumatic and normocephalic. Mucous membranes are moist. LUNGS: Rhonchi as well as some rales. CARDIAC: Regular rate and rhythm. ABDOMEN: Soft. EXTREMITIES: Trace edema. LABORATORY DATA: Hemoglobin 11.8, hematocrit 38.1, white blood cell count 13.2. Sodium 139, potassium 5.8, chloride 109, bicarb 23, BUN 45, creatinine 1.41. Blood sugar was 500 at that time. Calcium 7.8. Urinalysis showed many white blood cells . As mentioned, baseline creatinine is 65-year-old diabetic with multiple chronic medical problems, admitted with severe hyperglycemia, lactic acidosis, severe respiratory hypoxic failure in the setting of being COVID positive. 1. Acute kidney injury. This is multifactorial including her severe hypoxia and COVID with renal hypoperfusion and ischemic acute tubular necrosis, most likely playing a role. There is concern for gram-negative bacteremia as well, and she is on broad-spectrum antibiotics and the infection can be associated with sepsis-associated acute tubular necrosis. COVID itself can be associated with a high cytokine release acute tubular necrosis. Acute obstruction seems unlikely as does acute glomerulonephritis. Acute interstitial nephritis is certainly a concern given the white cells in the urine, but seems less likely given her clinical presentation. 2. Hyperkalemia. This is multifactorial including acute kidney injury and severe hyperglycemia. Now that her sugar is doing better, we will recheck her potassium level. 3. Respiratory failure. She is getting a standard of care treatment for COVID pneumonia. She got a couple doses of Lasix to try and get her into negative fluid balance for concern of superimposed heart failure. PE is being ruled out with a V/Q scan. 4. Hyperglycemia, this is getting better with insulin. 5. Lactic acidosis. This is improved with the IV fluids. SUGGESTIONS: At this time include repeat lytes to check her potassium as she may need some Lokelma. Continue control of blood sugars. Follow urine output and renal function. We would agree with using Lasix as needed given her hypoxic respiratory failure. We will need to try optimize her respiratory status. At this time, there is no indication for dialysis, but we will follow the patient closely with the team. MD LEO Carrillo/MAIK / [phone]
--- NOTE | 2021-03-28 10:32 | MHC.SLORD ---
Speech Language Pathology Order Status: Per RN, pt remains unable to safely participate in a swallow evaluation at this time. Per EMR, pt with periods of restlessness/anxiety. She was reported to consistently remove her O2, resulting in desatting to the 80s. Head CT negative. RN to notify this CONCRETE [employer]EMAN via [place] text should her mental status improve. CONCRETE FOREMAN will continue to follow pt.
[2021-03-28 11:03] LABS: Glucose, Whole Blood 269 mg/dL (60-115)
[2021-03-28] MEDS: dexAMETHasone sod phosphate 4 MG/ML VIAL 6 MG IVPUSH (11:55)
--- NOTE | 2021-03-28 12:05 | MHC.CM.PN ---
Female 65 DX Covid. DP home resumption of [facility]. Patients DTR to provide transport home. Patient is not ready to discharge r/t Oxygen High Flow NRB. Patient is confused taking O2 off and climbing out of bed. CM will follow to address needs @ DC.
--- NOTE | 2021-03-28 14:00 | CA_ITS ---
Transthoracic Echocardiogram Patient (Last, First, Middle): Lillie Clemons, Gender: Female Date of : 1955 Age: 65 Procedure Date: 03/28/2021 Procedure Type: Transthoracic Echocardiogram Location: [facility] [place] Height: 152.4 cm Weight: 74.84 kg BSA: 1.72 m2 Heart Rate: bpm BP: 161 / 74 mmHg Flight Reservations Manager: Referring MD: García Crawford MD Symptoms: heart failure Study Quality: Technically Difficult ECG Rhythm: Sinus tachycardia Conclusions: - The left ventricular systolic function is normal. The calculated ejection fraction is 56% by biplane method. - Study quality limited due to lack of patient co-operation. Findings Left Ventricle Normal left ventricular cavity size. There is mildly increased left ventricular wall thickness. The left ventricular systolic function is normal. The calculated ejection fraction is 56% by biplane method. Regional wall motion abnormalities can not be excluded due to suboptimal endocardial definition. Diastolic function is indeterminate on the basis of available data. Right Ventricle Normal right ventricular cavity size and systolic function. TAPSE 2.8cm. Atria Both atria are normal in size. Aortic Valve The aortic valve was not well visualized. There is no aortic valve regurgitation. Mitral Valve The mitral valve appears normal. There is no mitral valve regurgitation. There is no mitral valve stenosis. Pulmonic Valve The pulmonic valve was not well visualized. Tricuspid Valve There is trace tricuspid valve regurgitation. The pulmonary artery systolic pressure is normal. Great Vessels The aorta was not well visualized. Venous The inferior vena cava is normal in size and collapses greater than 50% with inspiration. Pericardium/Pleural There is no evidence of pericardial effusion. Prior Study Comparison No significant change compared to prior study dated: 08/16/2020. Measurements 2D Linear Measurements IVSd: 1.25 0.6-0.9/0.6-1.0 cm LVIDd: 4.18 3.9-5.3/4.2-5.9 cm LVIDd Index: 2.43 2.4-3.2/2.2-3.1 cm/m2 LVIDs: 2.48 2.0-3.6 cm LVPWd: 1.21 0.7-1.1 cm LV Mass: 228.51 67-162/88-224 g LV Mass Index: 132.85 43-95/49-115 g/m2 2D Systolic Function EF 4C: 60.70 >55% EF 2C: 50.00 >55% EF BiP: 55.90 >55% Tricuspid Valve TR Pk Esvin: 2.27 TR Pk Grad: 21.00 Updated in Other Vendor System with Status of Final Gonzales Rutledge MD electronically signed on 03/28/2021 3:01:44 PM with status of Final
--- NOTE | 2021-03-28 14:12 | PC.NURSE ---
Addendum entered by Melani Vines RN 03/28/21 18:06: Pt continues to be confused and crying out. Pulling at IV, topete, and o2 masks. Sitter remaining at bedside for safety and helping keep pt o2 on. Md reassessed pt and readjusted next dose of haldol as the 0.5 and 1mg doses have not sustained effectiveness thus far. Other high fall risk measures remain in place. Addendum entered by Melani Vines RN 03/28/21 15:54: Speech unable to see pt at this time due to scheduling. Rn did bedside eval. Pt did well with small sips of thin liquids. Tried some pudding and applesauce pt spit both out refusing both. Aide attempted to ask pt what she liked, pt just shakes her head no. MD aware. Will keep NPO until eval and pt more cooperative. MD ok with small sips water for now. Sitter remains at bedside Original Note: In morning pt going in and out of very agitated, pulling NRB and hiflo off and trying to get OOB while yelling out as well as short 10-30min periods of sleep. No specific triggers, seems random anxious activity upon awaking and worsens when pt removes o2. Telesitter calling staff to room constantly as she pulls off mask and thrashes in bed Pt can desat immediately to 50s when pulls off mask. Staff constantly in room trying to redirect or reorient pt. Pt inconsolable at times, gets very anxious and puts self in resp distress. MD to room mult times to assess pt as well. Staff trying to stay in room as much as possible to redirect as pt very confused and will take off masks moment after staff exiting the room. Managing her with prn morphine and haldol. Seems to work briefly but pt still wakes up and has these episodes of uncooperative anxious episodes. In early afternoon was able to get sitter at bedside with seems to help a bit in these moments but still requires alot of attention and redirection. Will cont this current regimen at this time. Pt NPO pending speech eval but per MD was ok to give her some ice- pt tolerated very well. Contacted speech to see if can stop by to see pt as she is awake at this time to see if pt could be seen this afternoon.
[2021-03-28] MEDS: Haloperidol Lactate 5 MG/ML VIAL 1 MG IM (16:06)
--- NOTE | 2021-03-28 17:27 | PM.EVENT ---
Event Note Date of Service: 03/28/21 Event Note: patient continues to be extremely agiated confused, not cooperating with care constantly removing oxygen even with sitter there. Wondering if suffer anoxic brain injury from prolonged hypoxia prior to hospitalization. She is not shape to get imging right now, cannot get ECG to assess QT as too agitated. She is not able to take PO and high likely to remove NGT if inserted for med or feed. Will try adjusted Haldol to better control agitation, restrain as last resort.
[2021-03-28] MEDS: Sodium Chloride 0.45 % 1,000 ML 100 ML IVCONT (17:33)
[2021-03-28 19:23] LABS: Glucose, Whole Blood 214 mg/dL (60-115)
[2021-03-28] MEDS: Haloperidol Lactate 5 MG/ML VIAL 2 MG IM ×2 (19:48→23:34)
[2021-03-28 20:16] LABS: Glucose, Whole Blood 85 mg/dL (60-115)
[2021-03-28] MEDS: Haloperidol Lactate 5 MG/ML VIAL 2.5 MG IM (20:49)
[2021-03-28] MEDS: cefTRIAXone sodium 1 GM in 0.9 % Sodium Chloride 50 ML IV (22:12)
[2021-03-28] MEDS: Enoxaparin Sodium 100 MG/ML SYRINGE 75 MG SUBCUT (22:20)
[2021-03-28] MEDS: HYDROmorphone HCl 0.5 MG/0.5 ML SYRINGE IVPUSH (22:29)
[2021-03-29] VITALS (29 sets, daily range): BP systolic 135–172; BP diastolic 44–90; PULSE 44–111; RESP 16–35; TEMP 37.1–37.6; O2SAT 81–100
--- NOTE | 2021-03-29 02:25 | PM.PNNEP ---
Subjective Subjective Date of Service: 03/28/21 Principal diagnosis: sudeep Interval history: seen and examined, events noted Physical Exam Vital Signs: Vital Signs: Last Vital Signs Temp 98.1 F 03/28/21 23:25 Pulse 105 H 03/28/21 23:25 Resp 16 03/29/21 00:06 BP 186/88 H 03/28/21 23:25 Pulse Ox 93 03/28/21 23:25 Body Mass Index 32.2 Const: General: no acute distress, alert, awake and anxious Eyes: Sclerae: sclerae normal EOM: EOMs intact bilaterally Neck: Neck: Yes no lymphadenopathy, Yes trachea midline and Yes supple Resp: Effort & Inspection: normal respiratory effort and no respiratory distress Auscultation: crackles (Diffuse bilateral) Cardio: Rate: regular rate Rhythm: regular rhythm Heart sounds: no gallops, no murmurs and no rubs GI: Palpation (GI): Soft to palpation and Other GI palpation findings present ( Nontender) Auscultation: normal bowel sounds Extrem: General: No clubbing, No cyanosis and Yes pedal edema (1+ bilateral) Objective Data Labs CBC & Chem 7: 03/28/21 06:23 03/28/21 06:23 Labs: Laboratory Results - last 24 hr 03/28/21 03/28/21 03/28/21 06:23 06:23 07:43 WBC 17.9 H RBC 5.09 Hgb 12.7 Hct 41.7 MCV 81.9 MCH 25.0 L MCHC 30.5 L RDW 15.6 Plt Count 246 MPV 11.3 Absolute Nucleated RBC 0.000 Nucleated RBC % (auto) 0.0 Sodium 149 H Potassium 5.5 H Chloride 114 H Carbon Dioxide 23 Anion Gap 18 BUN 40 H Creatinine 0.98 Estim Creat Clear Calc 51.0 Estimated GFR 57 POC Glucose 298 H Random Glucose 315 H Calcium 8.9 D C-Reactive Protein 9.80 H 03/28/21 03/28/21 03/28/21 10:46 16:03 19:44 WBC RBC Hgb Hct MCV MCH MCHC RDW Plt Count MPV Absolute Nucleated RBC Nucleated RBC % (auto) Sodium Potassium Chloride Carbon Dioxide Anion Gap BUN Creatinine Estim Creat Clear Calc Estimated GFR POC Glucose 269 H 214 H 85 Random Glucose Calcium C-Reactive Protein Microbiology Microbiology Results: Microbiology 03/26/21 16:43 Blood - Venous Blood Culture - Preliminary No growth after 48 hours. 03/27/21 Unknown Urine Catheterized - Rashid Catheter Urine Culture - Preliminary Culture in progress. 03/26/21 16:43 Blood - Venous Blood Culture - Preliminary Gram negative josiane Procedures Date of Service Date of Service: 03/28/21 Assessment & Plan Assessment and plan (1) Acute respiratory distress syndrome (ARDS) due to COVID-19 virus: Start date: 04/28/21 Start time: 10:28 Status: Acute Assessment and Plan: 1. SUDEEP: resolved 2. HyperK: multifact including hyperglycemia 3. HyperNa 4. COVID Pnuemonia REC: IVF hypotonic fluids and PO fluids, track UOP/renal func. repeat Lytes and if K remains incr then kelfl Time Spent With Patient Time: Total time spent is greater than 50% in coordination of care (as documented) at patient's floor/unit and/or counseling patient: Progress Note: Quality Stroke Does the patient have a stroke diagnosis?: No
[2021-03-29] MEDS: Haloperidol Lactate 5 MG/ML VIAL 2 MG IM (02:40)
[2021-03-29] MEDS: HYDROmorphone HCl 0.5 MG/0.5 ML SYRINGE IVPUSH (02:40)
[2021-03-29] MEDS: Sodium Chloride 0.45 % 1,000 ML 100 ML IVCONT (03:42)
[2021-03-29] MEDS: fentaNYL citrate/PF 100 MCG/2 ML VIAL 25 MCG IVPUSH (03:50)
--- NOTE | 2021-03-29 04:01 | HO.PM.IMPN ---
Subjective Subjective Date of Service: 03/29/21 Interval History: Seen in f/u for acute hypoxic respiratory failure d/t covid 19 complicated by metabolic encephalopathy. She continues to be very agitated throughout the night and has required multiple doses of dilaudid, haldaol, Fentanyl and is not able to achieve calmness, she moans constantly pulling tubes, taking off oxygen resulting significant desaturation Review of Systems Review of Systems: Yes Unobtainable due to mental status Physical Exam Vital Signs: Vital Signs: Last Vital Signs Temp 98.1 F 03/28/21 23:25 Pulse 105 H 03/28/21 23:25 Resp 24 H 03/29/21 03:56 BP 186/88 H 03/28/21 23:25 Pulse Ox 93 03/28/21 23:25 Body Mass Index 32.2 General:She is very agitated confused, restless, cannot be directed Resp: difficulty to assess giving constant thrashing, not staying still CVS: S1,S2,RRR GI: +BS, NT, no distention Skin: No rash Neuro: confused, has no focal deficit, unable to direct Psych: highly anxious Objective Data Active Medications Acetaminophen (Acetaminophen Supp 650 Mg Supp.Rect) 650 mg [place] Q6H PRN PRN Reason: Pain, Mild (Pain Scale 1-3) Albuterol Sulfate (Albuterol Sulfate 90 Mcg 8 Gm Inhaler) 2 puff INHALE Q4H PRN PRN Reason: Shortness of Breath/Wheezing Albuterol/Ipratropium (Albuterol/Iprat 2.5/0.5mg 3 Ml Ampul.Neb) 3 ml INHALE RQ4H PRN PRN Reason: Shortness of Breath/Wheezing Baricitinib (Baricitinib 2 Mg Tablet) 2 mg PO DAILY [facility] Last Admin: 03/28/21 08:22 Dose: Not Given Documented by: LUCRECIA Non-Admin Reason: NPO Dexamethasone Sodium Phosphate (Dexamethasone Sod Phosphate 4 Mg/Ml Vial) 6 mg IVPUSH DAILY [facility] Last Admin: 03/28/21 11:55 Dose: 6 mg Documented by: SAMANTHA Dextrose (Dextrose 50 % 25 Gm/50 Ml Vial) 25 gm IVPUSH Q15M PRN; Protocol PRN Reason: per Hypoglycemia Standing Ord. Enoxaparin Sodium (Enoxaparin Sodium 100 Mg/Ml Syringe) 75 mg SUBCUT Q24H [facility] Last Admin: 03/28/21 22:20 Dose: 75 mg Documented by: NUZHAT Glucose (Glucose Gel 15 Gm Gel..Gram.) 15 gm PO Q15M PRN; Protocol PRN Reason: per Hypoglycemia Standing Ord. Haloperidol Lactate (Haloperidol Lactate 5 Mg/Ml Vial) 2 mg IM Q3H PRN PRN Reason: Agitation Last Admin: 03/29/21 02:40 Dose: 2 mg Documented by: NUZHAT Hydromorphone HCl (Hydromorphone Hcl 0.5 Mg/0.5 Ml Syringe) 0.5 mg IVPUSH Q4H PRN; Protocol PRN Reason: Pain, Severe (Pain Scale 7-10) Last Admin: 03/29/21 02:40 Dose: 0.5 mg Documented by: NUZHAT Ceftriaxone Sodium 1 gm/ (Sodium Chloride) 50 mls @ 100 mls/hr IV Q24H [facility] Last Infusion: 03/28/21 23:00 Dose: 0 mls/hr Documented by: NUZHAT Sodium Chloride () 1,000 mls @ 100 mls/hr IVCONT .Q10H [facility] Last Admin: 03/29/21 03:42 Dose: 100 mls/hr Documented by: NUZHAT Insulin Glargine (Insulin Glargine,Hum.Rec.Anlog 100 Unit/Ml 10 Ml Vial) 20 unit SUBCUT DAILY [facility] Last Admin: 03/28/21 08:19 Dose: 20 unit Documented by: LUCRECIA Insulin Human Lispro (Insulin Lispro 100 Unit/Ml 3 Ml Vial) 0 unit SUBCUT QIDACHS [facility]; Protocol Last Admin: 03/28/21 20:13 Dose: Not Given Documented by: NUZHAT Non-Admin Reason: No Insulin Coverage Pharmacy Consult (Consult Rx Perform Med Rec) 1 each MISCELLANE ONCE PRN PRN Reason: Consult order Sodium Chloride (0.9 % Sodium Chloride Flush 3 Ml Syringe) 3 ml IVFLUSH QSHIFT [facility] Last Admin: 03/29/21 00:07 Dose: Not Given Documented by: NUZHAT Non-Admin Reason: IV Running Labs CBC & Chem 7: 03/28/21 06:23 03/28/21 06:23 Labs: Laboratory Results - last 24 hr 03/28/21 03/28/21 03/28/21 06:23 06:23 07:43 MCV 81.9 MCH 25.0 L MCHC 30.5 L RDW 15.6 Plt Count 246 MPV 11.3 Absolute Nucleated RBC 0.000 Nucleated RBC % (auto) 0.0 Anion Gap 18 Estim Creat Clear Calc 51.0 Estimated GFR 57 POC Glucose 298 H Random Glucose 315 H Calcium 8.9 D C-Reactive Protein 9.80 H 03/28/21 03/28/21 03/28/21 10:46 16:03 19:44 MCV MCH MCHC RDW Plt Count MPV Absolute Nucleated RBC Nucleated RBC % (auto) Anion Gap Estim Creat Clear Calc Estimated GFR POC Glucose 269 H 214 H 85 Random Glucose Calcium C-Reactive Protein Microbiology Microbiology Results: Microbiology 03/26/21 16:43 Blood Culture - Preliminary Blood - Venous No growth after 48 hours. 03/27/21 Unknown Urine Culture - Preliminary Urine Catheterized - Rashid Catheter Culture in progress. 03/26/21 16:43 Blood Culture - Preliminary Blood - Venous Gram negative josiane Assessment and Plan (1) Acute respiratory distress syndrome (ARDS) due to COVID-19 virus: Status: Acute (2) UTI (urinary tract infection): Status: Acute (3) Bacteremia: Status: Acute Assessment and Plan: 65-year-old female with a past medical history of hypertension, hyperlipidemia, diabetes, CAD, mild aortic stenosis; last echo showed EF of 60-65%; COPD; GERD, goiter, osteoarthritis, osteoporosis, pulmonary nodule, fully vaccinated for covid 19 and here with severe, acute hypoxic respiratory failure due to covid 19-PNA h. Acute hypoxic respiratory failure due to covid Covid 19 pneumonia--She remains hypoxic on high flow but seem to do well with oxygenation when she is calm and not so agitated but this is very rare and making it difficulty to get a good handle on her. -Continue supplemetal oxygen to maintain O2 -Continue IV Dexamethasone. -Suplemental oxygen via high flow with goal of O2 greater than 90 % -IV Dexamethasone -VQ scan is negative for PE -Has been getting Dilaudid for respiratory distress but doesn't seem to be working -I have discussed with Doctor to transfer to ICU for closer monitoring and better sedation as she seem to oxygenate well once calm -Pulmonology started Baricitinib but she has not been able to take it by mouth--She has not been in position to get NGT om Sepsis due to UTI Gram negative josiane bacteremia --Continue Ceftriaxone follow culture sensitivity Lactic acidosis--d/t hypoxia and improved, Diabetes/hyperglycemia:?Insulin therapy with Lantus and Sliding scke Metabolic encephalopathy and high concern for encephalopathy as she was very hypoxic at triage reportedly in 60 and probably for prolonged period at home. It is at this time difficulty to attempt any study until she is much better situated with agitation. SUDEEP:? Likely pre renal, now resolved. Hypernatremia--D5 via IV as not able to swallow and not able to put in NGT . ?? Aphasia:? Patient unable to speak any words when asked for questions.? Question anxiety versus anoxic injury. CT head- negative. Neurology consult.? Dysphagia screen. Leg pains:?Negative DVT by , Bandar. Patient is being transfered to ICU, I spent more than 70 minutes caring for her at bedside Quality Stroke Does the patient have a stroke diagnosis?: No VTE Prior VTE?: No VTE Risk Level:: Medical - moderate - high VTE Device Contraindication: Treatment Not Indicated VTE Drug Contraindication: N/A - Med Ordered
[2021-03-29 04:41] LABS: Glucose, Whole Blood 118 mg/dL (60-115)
--- NOTE | 2021-03-29 04:45 | W.PM.CCCN ---
History of Present Illness Data of Consult Service Date: 03/29/21 [facility] Provider: Anali Negron MD HPI Reason for consult: Agitation, respiratory failure and distress due to COVID Chief complaint: ?Agitation respiratory distress due to COVID HPI: ?62-year-old female with history of hypertension, diabetes, hyperlipidemia, CAD post stent, COPD, GERD, goiter, osteoarthritis and osteoporosis, pulmonary nodules, chronic bilateral hip pain, uric valve stenosis, who was admitted on 03/26/2021 due to complaints of shortness of breath, malaise and bilateral leg pain for the past couple of weeks, had seen her primary care and diagnosed with radiculopathy . ?On 03/21/2021 patient tested POSITIVE for COVID despite of being vaccinated against it, she had been getting or fluids and vitamin-C but the patient had worsened.? ?Upon being brought to the ER she was noted to be exhausted not able to follow commands; sat 60% in the triage area, patient was placed on non-rebreather mask with good improvement.? Labs at the time was significant for lactic acid of 12, glucose in the 700s, patient was given IV fluids, her blood gas showed metabolic acidosis.? Patient was given empiric Zosyn for possible pneumonia as well as Solu-Medrol but quickly changed to Decadron and admitted to the floor for further management. While on [facility] the patient has been getting albuterol and Solu-Medrol, was seen by pulmonology and had a V/Q scan which showed no probability of PE., given increased BNP, Lasix was given as her chest x-ray also showed worsening opacities increased oxygen demands when she was given morphine for work of breathing anxiety. Patient was started on ceftriaxone and Zithromax and later was found to have a Gram-negative josiane bacteremia likely due to UTI, currently on Rocephin still.? At some point was suggested by pulmonology to star Baricitinib but the patient is not able to take p.o. Patient had acute kidney with creatinine of 2.4 and hyperkalemia, Nephrology was consulted, this was attributed to COVID, ATN .? Lasix given the ongoing respiratory issues possible fluid overload.? Patient however had continued to deteriorate having significant confusion and agitation the floor, the patient continued to have increased demand of oxygen and close monitoring requiring a sitter.? Patient did receive morphine; Dilaudid, Haldol, Zyprexa to try to control the agitation but this had not worked.? She did have a head CT which showed no abnormalities and the confusion is probably from multi pharmacy and to some degree hypoxia. Given the increased agitation and physical management on the floor, presents transferred to ICU.? Patient is moaning and groaning, crying. ROS:? Unable to obtain as the patient is agitated Past Medical History:? As above Past Surgical History:? Appendectomy, cataract extraction, , cholecystectomy, cardiac sten? Family history: ?Noncontributory Social History:? Per chart social alcohol consumption, former smoker, lives at home with family. CODE STATUS: Full code Allergies: ?Morphine (hives and difficulty breathing), penicillin (itching) Home Medications:? Please see med rec PHYSICAL EXAM: VS: ?Blood pressure 186/80, heart rate 1 5, respirations 24, O2 sat 93% on high-flow nasal cannula 100% FiO2, temperature 98.1?. General:? Alert, confused,unable to determine orientation, patient is moaning and groaning..? Speaking Urdu in following minimal commands. Skin:? Intact, no lesions, edema, erythema, clubbing or cyanosis.? No ulcers. HEENT:? Head is normocephalic, atraumatic, pupils equal round reactive to light accommodation bilaterally.? Extraocular movements appear intact.? Buccal mucosa is dry, Neck is supple without lymphadenopathy. Cardiac:? Clear S1-S2, no murmurs rubs or gallops. Pulmonary:? Bilateral coarseness and rhonchi at the bilateral lungs throughout. Abdomen:? Protuberant, positive bowel sounds in all 4 quadrants.? Soft, nontender, no rebound or guarding.? Musculoskeletal:? Moving all 4 extremities upon request a major joints, there is no crepitus or tenderness.? The strength is 5/5 bilaterally and throughout all 4 extremities.? Bilateral lower extremity edema 1+ pitting, no asymmetry, no calf tenderness. ?Gait not assessed at this point. Neurologic:? As above, no focal deficits noted. Motor strength as above.? Vascular:? 2+ pulses upper and lower extremities distally. SIGNIFICANT LABORATORY DATA:? As above otherwise to these data shows White count 17.9, H&H of 12.741 respectively, platelets 246, sodium 149 (increased from 147), potassium of 5.5 (from 5.8, chloride 114, carbon dioxide 23, anion gap 18, BUN 40, creatinine 0.98 (from 2.41) C reactive protein 9.8. REVIEW OF IMAGES: ?As above V/Q scan negative for PE Ultrasound of legs negative for DVT Head CT negative for intracranial pathology. Last chest x-ray showed: ?Bilateral diffuse airspace disease, left greater than right, not appreciably changed from earlier today.? EKG REVIEW: ?Sinus tachycardia 1 4 beats per minute.? Nonspecific ST abnormalities, I do not think this represents ST elevations, no comparison available.? QTC 457. ASSESSMENT AND PLAN: 1. Agitation respiratory distress due to COVID-19 infection 2. COVID-19 ARDS 3. Hypoxic respiratory failure due to COVID-19 4. Metabolic encephalopathy due to current illness as well as polypharmacy administration including Sterioid related effects 5. Gram-negative josiane bacteremia likely due to UTI 6. Leukocytosis which can be mixed in the setting of bacteremia steroids. 7. Resolving acute kidney injury 8. Resolving hyperkalemia 9. Hypernatremia due to volume overload Transferred to ICU, continue with high-flow non-rebreather and distraction for hypoxia, clearly she appears to have ARDS features and some fluid overload evidence, will continue with volume restriction reassess for possibility of another Lasix administration., continue with ceftriaxone, a repeat labs in the morning and will add phosphorus levels and COVID markers including D-dimer, CRP and will add a procalcitonin level, and venous blood gas. Id, pulmonology and Nephrology input is appreciated. To try to control the agitation will start her with Precedex and if this does not work we will attempt ketamine.? I will discontinue narcotics for now and also will not administer any more Haldol or Zyprexa. GI PROPHYLAXIS:? IV ppi DVT PROPHYLAXIS:? Lovenox ? Critical care time used for critical evaluation of this patient, diagnosis, treatment and coordination of care, review her records and documentation TOTAL CRITICAL CARE TIME 90 MIN . Patient's care was discussed in detail with Dr. Tinoco.? He is aware of all the above as well as the plan of care for this patient. [facility] Past Medical History Medical History Arthritis Atherosclerotic cardiovascular disease CAD (coronary artery disease) COPD (chronic obstructive pulmonary disease) CVA (cerebral vascular accident) Diabetes Diabetes type 2, uncontrolled Diabetic polyneuropathy associated with type 2 diabetes mellitus Dyslipidemia Essential hypertension GERD (gastroesophageal reflux disease) History of headache HTN (hypertension) Hx of osteopenia Hx of solitary pulmonary nodule Left hip pain MCFP (current) use of insulin Non-toxic multinodular goiter Obese On beta manolo at home Right hip pain Type 2 diabetes mellitus with unspecified complications Family History Family History Father Diabetes Mother Diabetes Hypertension Family/Other FH: mental illness Diabetes Hypertension Brother No problems noted. Sister No problems noted. Son No problems noted. Daughter No problems noted. Surgical History Surgical History H/O colonoscopy History of PTCA Hx of appendectomy Hx of cataract extraction Hx of section Hx of cholecystectomy Hx of heart artery stent Social History Social History Household Members: Family Housing: House Do you presently have visiting nurse or other home services: No Alcohol intake: current Alcohol intake frequency: holidays/special occasions only Patient Tobacco Use Status: Former Tobacco user Cigarette Packs Per Day: 1 Cigarettes Per Day: 20.0 Years Smoked: 30 Smoked in Last 30 Days: No Use of substances other than those prescribed or required for medical reasons: No Currently Displaying Signs/Symptoms of Drug Intoxication Withdrawal: No Spiritual Healthcare Practices: Episcopal Advance Directives: No Advance Directives Information Provided: Yes Recently lost weight without trying: No Nutrition Risks: No Nutritional Risk Patient : No : No Poor oral hygiene: No service: No Current occupational status: disabled Meds Allergies Allergy/AdvReac Type Severity Reaction Status Date / Time morphine [MORPHINE] Allergy Severe HIVES AND Verified 03/12/21 13:09 DIFFICULTY BREATHING, dyspnea, rash Penicillins Allergy Intermediate ITCHING Verified 03/12/21 13:09 Active Medications: Current Medications Acetaminophen (Acetaminophen Supp 650 Mg Supp.Rect) 650 mg AL Q6H PRN PRN Reason: Pain, Mild (Pain Scale 1-3) Albuterol Sulfate (Albuterol Sulfate 90 Mcg 8 Gm Inhaler) 2 puff INHALE Q4H PRN PRN Reason: Shortness of Breath/Wheezing Albuterol/Ipratropium (Albuterol/Iprat 2.5/0.5mg 3 Ml Ampul.Neb) 3 ml INHALE RQ4H PRN PRN Reason: Shortness of Breath/Wheezing Baricitinib (Baricitinib 2 Mg Tablet) 2 mg PO DAILY [facility] Last Admin: 03/28/21 08:22 Dose: Not Given Documented by: Dexamethasone Sodium Phosphate (Dexamethasone Sod Phosphate 4 Mg/Ml Vial) 6 mg IVPUSH DAILY [facility] Last Admin: 03/28/21 11:55 Dose: 6 mg Documented by: Dextrose (Dextrose 50 % 25 Gm/50 Ml Vial) 25 gm IVPUSH Q15M PRN; Protocol PRN Reason: per Hypoglycemia Standing Ord. Enoxaparin Sodium (Enoxaparin Sodium 40 Mg/0.4 Ml Syringe) 40 mg SUBCUT DAILY [facility] Glucose (Glucose Gel 15 Gm Gel..Gram.) 15 gm PO Q15M PRN; Protocol PRN Reason: per Hypoglycemia Standing Ord. Ceftriaxone Sodium 1 gm/ (Sodium Chloride) 50 mls @ 100 mls/hr IV Q24H [facility] Last Infusion: 03/28/21 23:00 Dose: Infused Documented by: Sodium Chloride () 1,000 mls @ 100 mls/hr IVCONT .Q10H [facility] Last Admin: 03/29/21 03:42 Dose: 100 mls/hr Documented by: Dexmedetomidine HCl (Precedex) 400 mcg in 100 mls @ 0 mls/hr IVCONT .Q0M [facility]; Protocol Insulin Glargine (Insulin Glargine,Hum.Rec.Anlog 100 Unit/Ml 10 Ml Vial) 20 unit SUBCUT DAILY [facility] Last Admin: 03/28/21 08:19 Dose: 20 unit Documented by: Insulin Human Lispro (Insulin Lispro 100 Unit/Ml 3 Ml Vial) 0 unit SUBCUT QIDACHS [facility]; Protocol Last Admin: 03/28/21 20:13 Dose: Not Given Documented by: Pantoprazole Sodium (Pantoprazole Sodium 40 Mg/10 Ml Vial) 40 mg IVPUSH DAILY@0630 [facility] Pharmacy Consult (Consult Rx Perform Med Rec) 1 each MISCELLANE ONCE PRN PRN Reason: Consult order Sodium Chloride (0.9 % Sodium Chloride Flush 3 Ml Syringe) 3 ml IVFLUSH QSHIFT [facility] Last Admin: 03/29/21 00:07 Dose: Not Given Documented by: Home Medications Medication Instructions Recorded Confirmed Last Taken Type aripiprazole 5 mg tablet 5 mg PO DAILY 05/07/20 03/26/21 Unknown History aspirin 81 mg tablet 81 mg PO DAILY 05/07/20 03/26/21 Unknown History docusate sodium 100 mg capsule 100 mg PO BID 05/07/20 03/26/21 Unknown History sennosides 8.6 mg tablet (senna) 8.6 mg PO BEDTIME 05/07/20 03/26/21 Unknown History lisinopril 5 mg tablet 5 mg PO DAILY 10/24/20 03/26/21 Unknown History acetaminophen 325 mg tablet 650 mg PO Q6H PRN 03/26/21 03/26/21 Unknown History Physical Exam Vital Signs: Vital Signs: Last Vital Signs Temp 98.1 F 03/28/21 23:25 Pulse 105 H 03/28/21 23:25 Resp 24 H 03/29/21 03:56 BP 186/88 H 03/28/21 23:25 Pulse Ox 93 03/28/21 23:25 Body Mass Index 32.2 Results Labs CBC & Chem 7: 03/29/21 05:59 03/29/21 05:59 Labs: Short CBC 03/28/21 Range/Units 06:23 WBC 17.9 H (4.8-10.8) X10*3/uL Hgb 12.7 (12.0-16.0) g/dl Hct 41.7 (37-47) % Plt Count 246 (160-400) X10*3/uL BMP 03/28/21 06:23 Sodium 149 H Potassium 5.5 H Chloride 114 H Carbon Dioxide 23 BUN 40 H Creatinine 0.98 Calcium 8.9 D Microbiology Microbiology Results: Microbiology 03/26/21 16:43 Blood - Venous Blood Culture - Preliminary No growth after 48 hours. 03/27/21 Unknown Urine Catheterized - Rashid Catheter Urine Culture - Preliminary Culture in progress. 03/26/21 16:43 Blood - Venous Blood Culture - Preliminary Gram negative josiane
[2021-03-29] MEDS: Pantoprazole Sodium 40 MG/10 ML VIAL IVPUSH (05:09)
[2021-03-29] MEDS: dexmedeTOMIDidine HCL/NS 400 MCG/100 ML INFUS..BTL 18.71 MCG IVCONT (05:09)
[2021-03-29 06:03] LABS: MANUAL DIFF FLAG NO
[2021-03-29 06:07] LABS: Basophils Percent Auto 0.1 % (0-2); Hematocrit 38.9 % (37-47); Hemoglobin 11.5 g/dl (12.0-16.0); Imm Gran Abs Auto 0.22 X10*3/uL (0.00-0.03); Imm Gran Pct Auto 1.4 % (0.0-0.4); Lymphocytes Absolute Auto 1.9 X10*3/uL (1.2-4.9); Lymphocytes Percent Auto 12.5 % (20-40); Mean Corpuscular HGB Conc 29.6 g/dl (31.0-35.0); Mean Corpuscular Hemoglobin 24.3 pg (27.0-33.0); Mean Corpuscular Volume 82.2 fL (80-98); Mean Platelet Volume 10.5 fL (9.4-12.3); Monocytes Absolute Auto 0.7 X10*3/uL (0.1-1.2); Monocytes Percent Auto 4.7 % (2-11); NRBC Pct Auto 0.1 /100WBC (0.0-0.2); Neutrophils Absolute Auto 12.5 X10*3/uL (2.0-8.3); Neutrophils Percent Auto 81.3 % (45-73); Platelet Count 278 X10*3/uL (160-400); Red Blood Count 4.73 X10*6/uL (4.20-5.50); Red Cell Distribution Width 15.5 % (11.0-16.0); White Blood Count 15.4 X10*3/uL (4.8-10.8)
[2021-03-29 06:09] LABS: Venous Blood Gas Refer to POC result
[2021-03-29 06:10] LABS: VBG Base Excess 6.9 mmol/L; VBG HCO3 32 mmol/L (22-26); VBG pCO2 50 mmHg; VBG pH 7.42 (7.32-7.43); VBG pO2 61 mmHg
[2021-03-29 06:22] LABS: D Dimer 1380 NG/ML
[2021-03-29 06:33] LABS: Alanine Aminotransferase 37 U/L (0-31); Albumin Level 2.9 g/dL (3.5-5.0); Alkaline Phosphatase 152 U/L (39-117); Anion Gap 11 (12-20); Aspartate Amino Transferase 103 U/L (5-31); Bilirubin Total 0.4 mg/dL (0.0-1.0); Blood Urea Nitrogen 37 mg/dL (9-16); C Reactive Protein 4.35 mg/dL (< or = 0.50); Calcium 8.9 mg/dL (8.4-10.2); Carbon Dioxide 30 mmol/L (22-29); Chloride 115 mmol/L (96-108); Creatinine Clr Calc Pharmacy 65.8; Estimated Glomerular Filt Rate > 60; Glucose Random 135 mg/dL (60-115); Phosphorus 3.1 mg/dL (2.7-4.5); Potassium 4.2 mmol/L (3.3-5.1); Sodium 152 mmol/L (135-145)
[2021-03-29 06:34] LABS: B Type Natriuretic Peptide 553 pg/mL (<100)
--- NOTE | 2021-03-29 06:42 | PC.NURSE ---
Assumed care of pt @ 1900. Pt very restless and anxious, trying to get OOB and remove O2 along with other medical equipment. MD aware of the situation. Administered 2mg IM Haldol at 19:48 along with 1mg IV Morphine at 20:08. Both medications provided little relief to pt. MD contacted, ordered STAT 2.5mg IM Haldol along with PRN 0.5mg IV Dilaudid. Pt remained restless and anxious trying to get OOB and remove equipment, administered PRN 0.5mg Dilaudid at 22:30. MD contacted again and decision was made to transfer pt down to ICU for better management of her metabolic encephalopathy. Pt transferred to room 253 at around 04:30 this AM.
[2021-03-29 07:31] LABS: Procalcitonin 0.31 ng/mL
[2021-03-29 07:46] LABS: Glucose, Whole Blood 120 mg/dL (60-115)
[2021-03-29] MEDS: 0.9 % Sodium Chloride Flush 3 ML SYRINGE IVFLUSH ×2 (08:17→15:25)
[2021-03-29] MEDS: dexAMETHasone sod phosphate 4 MG/ML VIAL 6 MG IVPUSH (08:27)
[2021-03-29] MEDS: Enoxaparin Sodium 40 MG/0.4 ML SYRINGE SUBCUT (08:27)
[2021-03-29] MEDS: Ketamine HCl/NS 50 MG/5 ML SYRINGE 40 MG IVPUSH (09:27)
[2021-03-29] MEDS: Dextrose 5 % 1,000 ML 125 ML IVCONT ×2 (09:28→16:38)
[2021-03-29] MEDS: Insulin Glargine,Hum.rec.anlog 100 UNIT/ML 10 ML VIAL 20 UNIT SUBCUT (09:40)
[2021-03-29] MEDS: propofoL 200 MG/20 ML VIAL 150 MG IVPUSH (10:10)
[2021-03-29] MEDS: Ketamine HCl 500 MG in 0.9 % Sodium Chloride 250 ML 19.09 MG IVCONT (10:19)
[2021-03-29] MEDS: Haloperidol Lactate 5 MG/ML VIAL 10 MG IVPUSH (10:19)
[2021-03-29] MEDS: Cisatracurium Besylate 20 MG/10 ML VIAL 10 MG IVPUSH (10:30)
--- NOTE | 2021-03-29 11:22 | W.PM.CCHP ---
Procedures Date of Service Date of Service: 03/29/21 Central Line Placement Right IJ: Central Line Comments: Right internal jugular triple-lumen central venous catheter emergently placed for vascular access under ultrasound guidance and usual sterile conditions with no immediate complications. Chest x-ray for line position is pending.
--- NOTE | 2021-03-29 11:23 | W.PM.CCHP ---
Procedures Date of Service Date of Service: 03/29/21 Intubation Intubation Comments: Patient emergently intubated for refractory hypoxemia with 7.5 ET tube under glide scope guidance with no immediate complications. X-ray for ET tube position is pending. Consent for Procedure: Emergent-no informed consent obtained Sedative: propofol Mg given: 150 Laryngoscope: fiber optic video scope ET tube size: 7.5 ET tube uncuffed: No Tube placement confirmation: visualized tube passing through cords and confirmation by capnometry Patient tolerated procedure: well
--- NOTE | 2021-03-29 11:25 | P.PNNP_ITS ---
Subjective Subjective Date of Service: 03/29/21 Principal diagnosis: sudeep Interval history: Events noted InICU Intubated Physical Exam Vital Signs: Vital Signs: Last Vital Signs Temp 98.1 F 03/28/21 23:25 Pulse 92 03/29/21 10:00 Resp 20 03/29/21 10:00 BP 172/90 H 03/29/21 10:00 Pulse Ox 92 03/29/21 10:00 Body Mass Index 32.2 Objective Data Labs CBC & Chem 7: 03/29/21 05:59 03/29/21 05:59 Labs: Laboratory Results - last 24 hr 03/28/21 03/28/21 03/29/21 16:03 19:44 04:35 WBC RBC Hgb Hct MCV MCH MCHC RDW Plt Count MPV Immature Gran % (Auto) Neut % (Auto) Lymph % (Auto) [place] % (Auto) Eos % (Auto) Baso % (Auto) Lymph # (Auto) [place] # (Auto) Eos # (Auto) Baso # (Auto) Abs Immat Gran (auto) Absolute Neuts (auto) Absolute Nucleated RBC Nucleated RBC % (auto) D-Dimer VBG pH VBG pCO2 VBG pO2 VBG HCO3 VBG O2 Saturation VBG Base Excess Sodium Potassium Chloride Carbon Dioxide Anion Gap BUN Creatinine Estim Creat Clear Calc Estimated GFR POC Glucose 214 H 85 118 H Random Glucose Calcium Phosphorus Total Bilirubin AST ALT Alkaline Phosphatase C-Reactive Protein B-Natriuretic Peptide Total Protein Albumin Procalcitonin 03/29/21 03/29/21 03/29/21 05:59 05:59 05:59 WBC 15.4 H RBC 4.73 Hgb 11.5 L Hct 38.9 MCV 82.2 MCH 24.3 L MCHC 29.6 L RDW 15.5 Plt Count 278 MPV 10.5 Immature Gran % (Auto) 1.4 H Neut % (Auto) 81.3 H Lymph % (Auto) 12.5 L [place] % (Auto) 4.7 Eos % (Auto) 0.0 Baso % (Auto) 0.1 Lymph # (Auto) 1.9 [place] # (Auto) 0.7 Eos # (Auto) 0.0 Baso # (Auto) 0.0 Abs Immat Gran (auto) 0.22 H Absolute Neuts (auto) 12.5 H Absolute Nucleated RBC 0.020 H Nucleated RBC % (auto) 0.1 D-Dimer 1380 VBG pH VBG pCO2 VBG pO2 VBG HCO3 VBG O2 Saturation VBG Base Excess Sodium 152 H Potassium 4.2 D Chloride 115 H Carbon Dioxide 30 H Anion Gap 11 L BUN 37 H Creatinine 0.76 Estim Creat Clear Calc 65.8 Estimated GFR > 60 POC Glucose Random Glucose 135 H Calcium 8.9 Phosphorus 3.1 Total Bilirubin 0.4 AST 103 H ALT 37 H Alkaline Phosphatase 152 H C-Reactive Protein 4.35 H B-Natriuretic Peptide Total Protein 7.0 Albumin 2.9 L Procalcitonin 03/29/21 03/29/21 03/29/21 05:59 05:59 06:05 WBC RBC Hgb Hct MCV MCH MCHC RDW Plt Count MPV Immature Gran % (Auto) Neut % (Auto) Lymph % (Auto) [place] % (Auto) Eos % (Auto) Baso % (Auto) Lymph # (Auto) [place] # (Auto) Eos # (Auto) Baso # (Auto) Abs Immat Gran (auto) Absolute Neuts (auto) Absolute Nucleated RBC Nucleated RBC % (auto) D-Dimer VBG pH 7.42 VBG pCO2 50 VBG pO2 61 VBG HCO3 32 H VBG O2 Saturation 90.0 VBG Base Excess 6.9 Sodium Potassium Chloride Carbon Dioxide Anion Gap BUN Creatinine Estim Creat Clear Calc Estimated GFR POC Glucose Random Glucose Calcium Phosphorus Total Bilirubin AST ALT Alkaline Phosphatase C-Reactive Protein B-Natriuretic Peptide 553 H Total Protein Albumin Procalcitonin 0.31 03/29/21 07:41 WBC RBC Hgb Hct MCV MCH MCHC RDW Plt Count MPV Immature Gran % (Auto) Neut % (Auto) Lymph % (Auto) [place] % (Auto) Eos % (Auto) Baso % (Auto) Lymph # (Auto) [place] # (Auto) Eos # (Auto) Baso # (Auto) Abs Immat Gran (auto) Absolute Neuts (auto) Absolute Nucleated RBC Nucleated RBC % (auto) D-Dimer VBG pH VBG pCO2 VBG pO2 VBG HCO3 VBG O2 Saturation VBG Base Excess Sodium Potassium Chloride Carbon Dioxide Anion Gap BUN Creatinine Estim Creat Clear Calc Estimated GFR POC Glucose 120 H Random Glucose Calcium Phosphorus Total Bilirubin AST ALT Alkaline Phosphatase C-Reactive Protein B-Natriuretic Peptide Total Protein Albumin Procalcitonin Microbiology Microbiology Results: Microbiology 03/27/21 Unknown Urine Catheterized - Rashid Catheter Urine Culture - Preliminary Gram negative josiane 03/26/21 16:43 Blood - Venous Blood Culture - Final Escherichia coli 03/26/21 16:43 Blood - Venous Blood Culture - Preliminary No growth after 48 hours. Procedures Date of Service Date of Service: 03/29/21 Assessment & Plan Assessment and plan (1) Acute kidney injury: Status: Acute Assessment and Plan: (1) Acute respiratory distress syndrome (ARDS) due to COVID-19 virus: ? ? 1. SUDEEP: resolved 2. HyperK: multifact including hyperglycemia - resolved 3. HyperNa - due to free water deficit 4. COVID Pnuemonia Suggest Keep I> O with hypotonic fluids Watch Na and renal panel Time Spent With Patient Time: Total time spent is greater than 50% in coordination of care (as documented) at patient's floor/unit and/or counseling patient: Time with patient: 15 - 24 minutes Progress Note: Quality Stroke Does the patient have a stroke diagnosis?: No
[2021-03-29] MEDS: Midazolam HCl/NS 50 MG/50 ML PLAST..BAG IVCONT (11:29)
[2021-03-29] MEDS: Midazolam HCl/PF 2 MG/2 ML VIAL IVPUSH (11:37)
[2021-03-29 11:39] LABS: Glucose, Whole Blood 160 mg/dL (60-115)
[2021-03-29] MEDS: fentaNYL citrate/PF 100 MCG/2 ML VIAL IVPUSH (11:58)
[2021-03-29] MEDS: Insulin Lispro 100 UNIT/ML 3 ML VIAL SUBCUT ×2 (11:59→18:01)
[2021-03-29] MEDS: ARIPiprazole 5 MG TABLET PO (12:08)
[2021-03-29] MEDS: fentaNYL citrate/NS 1,000 MCG/100 ML PLAST..BAG 5 MCG IVCONT (12:27)
[2021-03-29] MEDS: Chlorhexidine Gluc Oral Rinse 15 ML MOUTHWASH BUCCAL ×2 (15:25→21:21)
--- NOTE | 2021-03-29 17:20 | PC.NURSE ---
S/E Afebrile, WBC 15.4, BC 1/2 positive ecoli - MD aware Continued on Ceftriaxone 1g IV Patient very restless, unable to redirect, removing O2, trying to get OOB Precedex gtt discontinued - HR down to 40's Ketamine 40mg bolus and gtt started without effect Haldol 10mg IVP administered without effect O2 down to low 80's maxed on High Flow & NRB 100% Patient intubated at 1030 w/ Propofol 150mg & Nimbex 10mg 7.5 ETT, 25cm @ lip ; Vent settings: AC 18/450/10/100% CXR ordered and completed - see report HR back down to 40's w/ Propofol gtt Propofol D/C'd & switched to Versed gtt at 2mg/hr set rate Patient waking up w/ Versed - asynchronous w/ vent Fentanyl 100mcg administered with good effect Started on Fentanyl gtt and titrated per EMAR Patient appropriately sedated and tolerating vent w/ Versed & Fentanyl gtts R IJ TLC placed & patent - placement confirmed Abdomen soft, positive bowel sounds, no BM OGT placed- placement confirmed Continued on Humalog SS & Lantus 20u - POC's 140-170's Started on D5 @ 125cc/hr x2L Temp topete place, urine output WNL No skin integrity concerns Bathed, repo q2hr, prevlon system in place This RN updated daughter Lillie on patient's contact list Daughter very upset she was not called prior to intubation. Daughter states she is patients HCP and should of been notified prior with decision to intubate. This RN attempted to educate daughter on patients Full code status and emergent needs at that time. Daughter continued to yell and became verbally aggressive over phone to this RN. Nursing gas distribution supervisor fei and spoke with daughter. manager of corporate LESLIE Barrett notified - no current HCP is on file at this time. Facetime set up at patients bedside by nursing staff.
[2021-03-29 20:41] LABS: Glucose, Whole Blood 256 mg/dL (60-115)
[2021-03-29] MEDS: fentaNYL citrate/NS 1,000 MCG/100 ML PLAST..BAG 10 MCG IVCONT (21:23)
[2021-03-30] VITALS (33 sets, daily range): BP systolic 147–180; BP diastolic 45–85; PULSE 45–121; RESP 18–20; TEMP 37.5–38.2; O2SAT 93–99
[2021-03-30] MEDS: cefTRIAXone sodium 1 GM in 0.9 % Sodium Chloride 50 ML IV ×2 (00:22→22:10)
[2021-03-30] MEDS: 0.9 % Sodium Chloride Flush 3 ML SYRINGE IVFLUSH ×4 (00:22→22:11)
[2021-03-30 01:12] LABS: Glucose, Whole Blood 195 mg/dL (60-115)
[2021-03-30] MEDS: Midazolam HCl/NS 50 MG/50 ML PLAST..BAG IVCONT (03:12)
[2021-03-30 05:18] LABS: MANUAL DIFF FLAG NO
[2021-03-30 05:19] LABS: Basophils Percent Auto 0.1 % (0-2); Hematocrit 36.3 % (37-47); Imm Gran Abs Auto 0.15 X10*3/uL (0.00-0.03); Imm Gran Pct Auto 1.1 % (0.0-0.4); Lymphocytes Absolute Auto 2.7 X10*3/uL (1.2-4.9); Lymphocytes Percent Auto 20.4 % (20-40); Mean Corpuscular HGB Conc 30.3 g/dl (31.0-35.0); Mean Corpuscular Hemoglobin 24.7 pg (27.0-33.0); Mean Corpuscular Volume 81.4 fL (80-98); Mean Platelet Volume 11.2 fL (9.4-12.3); Monocytes Absolute Auto 0.7 X10*3/uL (0.1-1.2); Monocytes Percent Auto 5.3 % (2-11); NRBC Pct Auto 0.3 /100WBC (0.0-0.2); Neutrophils Absolute Auto 9.7 X10*3/uL (2.0-8.3); Neutrophils Percent Auto 73.1 % (45-73); Platelet Count 252 X10*3/uL (160-400); Red Blood Count 4.46 X10*6/uL (4.20-5.50); Red Cell Distribution Width 15.3 % (11.0-16.0); White Blood Count 13.3 X10*3/uL (4.8-10.8)
[2021-03-30 05:22] LABS: Venous Blood Gas Refer to POC result
[2021-03-30 05:22] LABS: VBG Base Excess 6.2 mmol/L; VBG HCO3 30 mmol/L (22-26); VBG pCO2 41 mmHg; VBG pH 7.47 (7.32-7.43); VBG pO2 49 mmHg
[2021-03-30] MEDS: Pantoprazole Sodium 40 MG/10 ML VIAL IVPUSH (05:40)
[2021-03-30 05:41] LABS: Alanine Aminotransferase 40 U/L (0-31); Albumin Level 2.6 g/dL (3.5-5.0); Alkaline Phosphatase 131 U/L (39-117); Anion Gap 11 (12-20); Aspartate Amino Transferase 89 U/L (5-31); Bilirubin Total 0.2 mg/dL (0.0-1.0); Blood Urea Nitrogen 32 mg/dL (9-16); Calcium 8.3 mg/dL (8.4-10.2); Carbon Dioxide 28 mmol/L (22-29); Chloride 113 mmol/L (96-108); Creatinine Clr Calc Pharmacy 63.2; Estimated Glomerular Filt Rate > 60; Glucose Random 95 mg/dL (60-115); Phosphorus 2.5 mg/dL (2.7-4.5); Potassium 3.8 mmol/L (3.3-5.1); Sodium 148 mmol/L (135-145); Total Protein 6.5 g/dL (6.5-8.0)
[2021-03-30] MEDS: Enoxaparin Sodium 40 MG/0.4 ML SYRINGE SUBCUT (08:11)
[2021-03-30] MEDS: Chlorhexidine Gluc Oral Rinse 15 ML MOUTHWASH BUCCAL ×3 (08:11→22:10)
[2021-03-30] MEDS: Insulin Glargine,Hum.rec.anlog 100 UNIT/ML 10 ML VIAL 20 UNIT SUBCUT (08:11)
[2021-03-30] MEDS: dexAMETHasone sod phosphate 4 MG/ML VIAL 6 MG IVPUSH (08:12)
[2021-03-30] MEDS: ARIPiprazole 5 MG TABLET PO (08:12)
[2021-03-30] MEDS: Potassium Phosphate 30 MMOL in 0.9 % Sodium Chloride 500 ML 85 MMOL IV (08:55)
[2021-03-30] MEDS: fentaNYL citrate/NS 1,000 MCG/100 ML PLAST..BAG 7.5 MCG IVCONT (10:08)
--- NOTE | 2021-03-30 10:24 | PM.CCPN ---
Subjective Subjective Date of Service: 03/30/21 Interval History: ICU day 2 for acute hypoxic respiratory failure, COVID-19 ARDS 65-year-old lady with underlying history of diabetes, CAD status post stenting, diastolic dysfunction, COPD, psychosis, COVID positive on 03/21/2021 (previously vaccinated) admitted on 03/26/2021 with shortness of breath. On ER evaluation patient noted to be hypoxic and was admitted to [facility]. She has been started on dexamethasone, however her hypoxemia worsened and she developed acute agitation poorly tolerating high-flow nasal cannula. Patient has been transferred to intensive care unit on 03/29/2021. Unfortunately despite sedative drips patient was not able to tolerate oxygenation with noninvasive positive pressure ventilation and required emergent intubation on 03/29/2021. No events overnight. Critical Care Time (minutes): 45 Physical Exam Vital Signs: Vital Signs: Last Vital Signs Temp 100.2 F 03/30/21 10:00 Pulse 53 03/30/21 10:08 Resp 18 03/30/21 10:08 BP 170/56 H 03/30/21 10:08 Pulse Ox 96 03/30/21 10:08 Body Mass Index 32.2 Const: General: no acute distress and other (Sedated on the vent, agitated with sedation vacation) Eyes: Sclerae: sclerae normal EOM: EOMs intact bilaterally Neck: Neck: Yes no lymphadenopathy, Yes trachea midline and Yes supple Resp: Auscultation: crackles (Diffuse bilateral) Cardio: Rate: regular rate Rhythm: regular rhythm Heart sounds: no gallops, no murmurs and no rubs GI: Palpation (GI): Soft to palpation and Other GI palpation findings present ( Nontender) Auscultation: normal bowel sounds Extrem: General: Yes no pedal edema, No clubbing and No cyanosis Objective Data Labs CBC & Chem 7: 03/30/21 05:09 03/30/21 05:09 Labs: Laboratory Results - last 24 hr 03/29/21 03/29/21 03/30/21 11:31 17:50 00:25 WBC RBC Hgb Hct MCV MCH MCHC RDW Plt Count MPV Immature Gran % (Auto) Neut % (Auto) Lymph % (Auto) [place] % (Auto) Eos % (Auto) Baso % (Auto) Lymph # (Auto) [place] # (Auto) Eos # (Auto) Baso # (Auto) Abs Immat Gran (auto) Absolute Neuts (auto) Absolute Nucleated RBC Nucleated RBC % (auto) VBG pH VBG pCO2 VBG pO2 VBG HCO3 VBG O2 Saturation VBG Base Excess Sodium Potassium Chloride Carbon Dioxide Anion Gap BUN Creatinine Estim Creat Clear Calc Estimated GFR POC Glucose 160 H 256 H 195 H Random Glucose Calcium Phosphorus Magnesium Total Bilirubin AST ALT Alkaline Phosphatase Total Protein Albumin 03/30/21 03/30/21 03/30/21 05:09 05:09 05:17 WBC 13.3 H RBC 4.46 Hgb 11.0 L Hct 36.3 L MCV 81.4 MCH 24.7 L MCHC 30.3 L RDW 15.3 Plt Count 252 MPV 11.2 Immature Gran % (Auto) 1.1 H Neut % (Auto) 73.1 H Lymph % (Auto) 20.4 [place] % (Auto) 5.3 Eos % (Auto) 0.0 Baso % (Auto) 0.1 Lymph # (Auto) 2.7 [place] # (Auto) 0.7 Eos # (Auto) 0.0 Baso # (Auto) 0.0 Abs Immat Gran (auto) 0.15 H Absolute Neuts (auto) 9.7 H Absolute Nucleated RBC 0.040 H Nucleated RBC % (auto) 0.3 H VBG pH 7.47 H VBG pCO2 41 VBG pO2 49 VBG HCO3 30 H VBG O2 Saturation 80.0 VBG Base Excess 6.2 Sodium 148 H Potassium 3.8 Chloride 113 H Carbon Dioxide 28 Anion Gap 11 L BUN 32 H Creatinine 0.79 Estim Creat Clear Calc 63.2 Estimated GFR > 60 POC Glucose Random Glucose 95 Calcium 8.3 L D Phosphorus 2.5 L Magnesium 2.0 Total Bilirubin 0.2 AST 89 H ALT 40 H Alkaline Phosphatase 131 H Total Protein 6.5 Albumin 2.6 L Microbiology Microbiology Results: Microbiology 03/27/21 Unknown Urine Catheterized - Rashid Catheter Urine Culture - Final Escherichia coli 03/26/21 16:43 Blood - Venous Blood Culture - Final Escherichia coli 03/26/21 16:43 Blood - Venous Blood Culture - Preliminary No growth after 48 hours. Quality Stroke Does the patient have a stroke diagnosis?: No VTE Prior VTE?: No VTE Risk Level:: Medical - moderate - high VTE Device Contraindication: Treatment Not Indicated VTE Drug Contraindication: N/A - Med Ordered Progress Note: A&P Assessment and plan (1) Acute respiratory failure with hypoxemia: Status: Acute (2) Diastolic dysfunction: Status: Acute (3) Acute respiratory distress syndrome (ARDS) due to COVID-19 virus: Status: Acute (4) Encephalopathy: Status: Acute (5) UTI (urinary tract infection): Status: Acute (6) Bacteremia: Status: Acute (7) Diabetic polyneuropathy associated with type 2 diabetes mellitus: Status: Acute (8) COPD (chronic obstructive pulmonary disease): Status: Acute (9) HTN (hypertension): Status: Acute (10) Acute kidney injury: Status: Acute Assessment and Plan: Assessment: 65-year-old lady with multiple medical problems COVID positive on 03/21/2021, admitted on 03/26/2021 for acute hypoxic respiratory failure secondary to COVID-19 ARDS, required transfer to intensive care and intubation on 03/29/2021. Plan: Neuro: Acute COVID-19 related encephalopathy. Cardiac: No acute issues. Underlying history of CAD and diastolic dysfunction. Pulmonary: Acute hypoxic respiratory failure secondary to COVID-19 ARDS, now requiring ventilatory support. Continue to titrate off ventilatory support as tolerated. Renal: Acute kidney injury, secondary to COVID-19, improved. Non oliguric. Nephrology service care appreciated. Continue to monitor renal indices and urine output. Endo: No acute issues. Underlying diabetes mellitus, continue on Lantus and sliding scale insulin. GI: No acute issues. ID: COVID-19 ARDS, continue on dexamethasone, will add tocilizumab. Klebsiella e bacteremia, likely secondary to urinary source, continue ceftriaxone. Heme/Onc: No acute issues. Psych: No acute issues. Underlying history of psychosis, continue on antipsychotics. Miscellaneous: No acute issues. Prophylaxis: Heparin, ppi Diet: Tube feeds Critical care time spent: 45 minutes
--- NOTE | 2021-03-30 10:57 | PM.PNNEP ---
Subjective Subjective Date of Service: 04/14/21 Principal diagnosis: sudeep Interval history: ICU day 2 for acute hypoxic respiratory failure, COVID-19 ARDS Physical Exam Vital Signs: Vital Signs: Last Vital Signs Temp 100.2 F 03/30/21 10:00 Pulse 53 03/30/21 10:08 Resp 18 03/30/21 10:08 BP 170/56 H 03/30/21 10:08 Pulse Ox 96 03/30/21 10:08 Body Mass Index 32.2 Objective Data Labs CBC & Chem 7: 04/14/21 05:10 04/14/21 05:10 Labs: Laboratory Results - last 24 hr 03/29/21 03/29/21 03/30/21 11:31 17:50 00:25 WBC RBC Hgb Hct MCV MCH MCHC RDW Plt Count MPV Immature Gran % (Auto) Neut % (Auto) Lymph % (Auto) [place] % (Auto) Eos % (Auto) Baso % (Auto) Lymph # (Auto) [place] # (Auto) Eos # (Auto) Baso # (Auto) Abs Immat Gran (auto) Absolute Neuts (auto) Absolute Nucleated RBC Nucleated RBC % (auto) VBG pH VBG pCO2 VBG pO2 VBG HCO3 VBG O2 Saturation VBG Base Excess Sodium Potassium Chloride Carbon Dioxide Anion Gap BUN Creatinine Estim Creat Clear Calc Estimated GFR POC Glucose 160 H 256 H 195 H Random Glucose Calcium Phosphorus Magnesium Total Bilirubin AST ALT Alkaline Phosphatase Total Protein Albumin 03/30/21 03/30/21 03/30/21 05:09 05:09 05:17 WBC 13.3 H RBC 4.46 Hgb 11.0 L Hct 36.3 L MCV 81.4 MCH 24.7 L MCHC 30.3 L RDW 15.3 Plt Count 252 MPV 11.2 Immature Gran % (Auto) 1.1 H Neut % (Auto) 73.1 H Lymph % (Auto) 20.4 [place] % (Auto) 5.3 Eos % (Auto) 0.0 Baso % (Auto) 0.1 Lymph # (Auto) 2.7 [place] # (Auto) 0.7 Eos # (Auto) 0.0 Baso # (Auto) 0.0 Abs Immat Gran (auto) 0.15 H Absolute Neuts (auto) 9.7 H Absolute Nucleated RBC 0.040 H Nucleated RBC % (auto) 0.3 H VBG pH 7.47 H VBG pCO2 41 VBG pO2 49 VBG HCO3 30 H VBG O2 Saturation 80.0 VBG Base Excess 6.2 Sodium 148 H Potassium 3.8 Chloride 113 H Carbon Dioxide 28 Anion Gap 11 L BUN 32 H Creatinine 0.79 Estim Creat Clear Calc 63.2 Estimated GFR > 60 POC Glucose Random Glucose 95 Calcium 8.3 L D Phosphorus 2.5 L Magnesium 2.0 Total Bilirubin 0.2 AST 89 H ALT 40 H Alkaline Phosphatase 131 H Total Protein 6.5 Albumin 2.6 L Microbiology Microbiology Results: Microbiology 03/27/21 Unknown Urine Catheterized - Rashid Catheter Urine Culture - Final Escherichia coli 03/26/21 16:43 Blood - Venous Blood Culture - Final Escherichia coli 03/26/21 16:43 Blood - Venous Blood Culture - Preliminary No growth after 48 hours. Procedures Date of Service Date of Service: 03/30/21 Assessment & Plan Assessment and plan (1) Hypernatremia: Status: Acute Assessment and Plan: Keep I > O with D5W SUDEEP resolved Time Spent With Patient Time: Total time spent is greater than 50% in coordination of care (as documented) at patient's floor/unit and/or counseling patient: Time with patient: 15 - 24 minutes Progress Note: Quality Stroke Does the patient have a stroke diagnosis?: No
[2021-03-30 11:31] LABS: Glucose, Whole Blood 93 mg/dL (60-115)
--- NOTE | 2021-03-30 14:55 | MHC.CM.PN ---
Pt presently in ICU after transfer from [facility] [place] d/t worsening respiratory function requiring urgent intubation on 03/29 d/t COVID. Call placed to pt's dtr Lillie : Lillie states she is her mother's HCP but does not have a copy or know where one may have been completed. Review of past [facility] [place] visits did not reveal one. Original d/c plan was for a return to home with DTR/[facility] care - this will depend on pt's ability to vent wean and be safe for a return to home. CM to follow for finalization of d/c needs.
[2021-03-30 17:51] LABS: Glucose, Whole Blood 168 mg/dL (60-115)
[2021-03-30] MEDS: Insulin Lispro 100 UNIT/ML 3 ML VIAL SUBCUT ×2 (17:58→23:20)
[2021-03-30] MEDS: fentaNYL citrate/NS 1,000 MCG/100 ML PLAST..BAG 20 MCG IVCONT (22:10)
--- NOTE | 2021-03-30 23:00 | PC.NURSE ---
Updated daughter & allowed daughter / family to facetime with patient at bedside at approx 2200.
[2021-03-30 23:26] LABS: Glucose, Whole Blood 182 mg/dL (60-115)
[2021-03-31] VITALS (32 sets, daily range): BP systolic 132–181; BP diastolic 50–87; PULSE 47–111; RESP 18–28; TEMP 37–37.6; O2SAT 89–96; BMI 32.2
[2021-03-31] MEDS: hydrALAZINE HCl 20 MG/ML VIAL 5 MG IVPUSH (00:40)
[2021-03-31] MEDS: Midazolam HCl/NS 50 MG/50 ML PLAST..BAG IVCONT ×2 (01:47→14:30)
[2021-03-31] MEDS: fentaNYL citrate/NS 1,000 MCG/100 ML PLAST..BAG 17.5 MCG IVCONT ×4 (03:19→19:45)
--- NOTE | 2021-03-31 03:57 | MHC.PIE ---
P: BP running high, patient very rigid with any care. Question need for increased sedation. I: Deng ACOSTA aware of elevated BP... ordered to increase versed drip & also titrated up fentanyl (see MAR). P: BP remained elevated, up to 181 systolic. I: Deng ACOSTA aware and ordered a one time dose of hydralazine, 5mg IVP - given as ordered @ 0040. E: BP improved to 130-140's systolic - Patient resting when left alone, but very rigid with any care. HR remains stable, 50's, SB.
[2021-03-31] MEDS: Pantoprazole Sodium 40 MG/10 ML VIAL IVPUSH (05:06)
[2021-03-31] MEDS: Insulin Lispro 100 UNIT/ML 3 ML VIAL SUBCUT ×3 (05:06→18:12)
[2021-03-31 05:37] LABS: VBG Base Excess 6.8 mmol/L; VBG HCO3 30 mmol/L (22-26); VBG pCO2 39 mmHg; VBG pH 7.49 (7.32-7.43); VBG pO2 46 mmHg
[2021-03-31 05:43] LABS: Glucose, Whole Blood 174 mg/dL (60-115)
[2021-03-31 05:44] LABS: MANUAL DIFF FLAG NO
[2021-03-31 05:50] LABS: Basophils Percent Auto 0.2 % (0-2); Eosinophils Percent Auto 0.1 % (0-4); Hematocrit 37.3 % (37-47); Hemoglobin 11.2 g/dl (12.0-16.0); Imm Gran Abs Auto 0.26 X10*3/uL (0.00-0.03); Imm Gran Pct Auto 2.3 % (0.0-0.4); Lymphocytes Absolute Auto 3.2 X10*3/uL (1.2-4.9); Lymphocytes Percent Auto 28.3 % (20-40); Mean Corpuscular Hemoglobin 24.4 pg (27.0-33.0); Mean Corpuscular Volume 81.3 fL (80-98); Mean Platelet Volume 11.3 fL (9.4-12.3); Monocytes Absolute Auto 0.6 X10*3/uL (0.1-1.2); Monocytes Percent Auto 5.4 % (2-11); NRBC Pct Auto 0.4 /100WBC (0.0-0.2); Neutrophils Absolute Auto 7.2 X10*3/uL (2.0-8.3); Neutrophils Percent Auto 63.7 % (45-73); Platelet Count 264 X10*3/uL (160-400); Red Blood Count 4.59 X10*6/uL (4.20-5.50); Red Cell Distribution Width 15.6 % (11.0-16.0); White Blood Count 11.2 X10*3/uL (4.8-10.8)
[2021-03-31 05:54] LABS: Venous Blood Gas Refer to POC result
[2021-03-31 06:09] LABS: Alanine Aminotransferase 40 U/L (0-31); Albumin Level 2.6 g/dL (3.5-5.0); Alkaline Phosphatase 126 U/L (39-117); Anion Gap 10 (12-20); Aspartate Amino Transferase 70 U/L (5-31); Bilirubin Total 0.3 mg/dL (0.0-1.0); Blood Urea Nitrogen 25 mg/dL (9-16); Calcium 8.4 mg/dL (8.4-10.2); Carbon Dioxide 29 mmol/L (22-29); Chloride 115 mmol/L (96-108); Creatinine Clr Calc Pharmacy 66.6; Estimated Glomerular Filt Rate > 60; Glucose Random 152 mg/dL (60-115); Magnesium 2.2 mg/dL (1.6-2.6); Phosphorus 2.8 mg/dL (2.7-4.5); Potassium 3.9 mmol/L (3.3-5.1); Sodium 150 mmol/L (135-145); Total Protein 6.4 g/dL (6.5-8.0)
[2021-03-31] MEDS: Insulin Glargine,Hum.rec.anlog 100 UNIT/ML 10 ML VIAL 20 UNIT SUBCUT (08:33)
[2021-03-31] MEDS: Chlorhexidine Gluc Oral Rinse 15 ML MOUTHWASH BUCCAL ×3 (08:34→19:45)
[2021-03-31] MEDS: Enoxaparin Sodium 40 MG/0.4 ML SYRINGE SUBCUT (08:34)
[2021-03-31] MEDS: 0.9 % Sodium Chloride Flush 3 ML SYRINGE IVFLUSH ×2 (08:34→16:46)
[2021-03-31] MEDS: ARIPiprazole 5 MG TABLET PO (08:34)
[2021-03-31] MEDS: dexAMETHasone sod phosphate 4 MG/ML VIAL 6 MG IVPUSH (08:34)
--- NOTE | 2021-03-31 08:46 | MHC.CM.PN ---
HCP FOUND IN PRIOR USED [employer] SYSTEM. TOO IS HCP. SECONDARY HVP IS [employer] ([phone]) COPY PRINTED AND PLACED ON PAPER CHART. RN TO BE MADE AWARE.
--- NOTE | 2021-03-31 10:45 | MHC.CLN ---
PT IS INTUBATED AND SEDATED PT RECEIVING GLUCERNA AT MAX GOAL 50ML/HR WITH 240CC WATER FLSUEHS Q 4 HRS PROVIDES 1200KCALS, 50G PROTEIN, 2464CC TOTAL WATER FROM FORMULA AND FLUSHES (45ML/KG) RECOMMEND ADDING 30ML PROSOURCE TO PROVIDE AN ADDITIONAL 60KCALS, 15 G PROTEIN (65G TOTAL PROTEIN; 1.2G/KG BASED ON CMW) MONITOR TOLERANCE, RESIDUALS AND LYTES SEE ALSO CLINICAL NUTRITION ASSESSMENT
[2021-03-31 12:03] LABS: Glucose, Whole Blood 222 mg/dL (60-115)
--- NOTE | 2021-03-31 12:42 | P.PNCC_ITS ---
Subjective Subjective Date of Service: 03/31/21 Interval History: 65-year-old female hypertensive and diabetic with acute severe bilateral COVID-19 pneumonitis with ARDS and acute hypoxemic respiratory failure on ventilator with resolving renal insufficiency but plateaued at a 60% FiO2 and a 9 L minute ventilatory requirement no distress Had an E coli urinary tract infection with sepsis currently on Rocephin and also had a agitated delirium when on the floor did and of course not responding to multiple modalities of sedation ultimately requiring intubation and the only persistent metabolic abnormality is hypernatremia for which I started oral free water and will follow her sodium Critical Care Time (minutes): 60 Physical Exam Vital Signs: Vital Signs: Last Vital Signs Temp 99.0 F 03/31/21 10:00 Pulse 54 03/31/21 10:00 Resp 19 03/31/21 10:00 BP 162/59 H 03/31/21 10:00 Pulse Ox 92 03/31/21 10:00 Body Mass Index 32.2 Sedated and intubated and nonfocal neurologically Abdomen soft with good bowel sounds and tolerating feedings Chest with coarse bilateral ventilatory sounds Cardiac exam with no neck vein distension and good bilateral carotid upstrokes no gallops Skin intact with no livedo Objective Data Labs CBC & Chem 7: 03/31/21 05:20 03/31/21 05:20 Labs: Laboratory Results - last 24 hr 03/30/21 03/30/21 03/31/21 17:46 23:15 05:03 WBC RBC Hgb Hct MCV MCH MCHC RDW Plt Count MPV Immature Gran % (Auto) Neut % (Auto) Lymph % (Auto) [place] % (Auto) Eos % (Auto) Baso % (Auto) Lymph # (Auto) [place] # (Auto) Eos # (Auto) Baso # (Auto) Abs Immat Gran (auto) Absolute Neuts (auto) Absolute Nucleated RBC Nucleated RBC % (auto) VBG pH VBG pCO2 VBG pO2 VBG HCO3 VBG O2 Saturation VBG Base Excess Sodium Potassium Chloride Carbon Dioxide Anion Gap BUN Creatinine Estim Creat Clear Calc Estimated GFR POC Glucose 168 H 182 H 174 H Random Glucose Calcium Phosphorus Magnesium Total Bilirubin AST ALT Alkaline Phosphatase Total Protein Albumin 03/31/21 03/31/21 03/31/21 05:20 05:20 05:31 WBC 11.2 H RBC 4.59 Hgb 11.2 L Hct 37.3 MCV 81.3 MCH 24.4 L MCHC 30.0 L RDW 15.6 Plt Count 264 MPV 11.3 Immature Gran % (Auto) 2.3 H Neut % (Auto) 63.7 Lymph % (Auto) 28.3 [place] % (Auto) 5.4 Eos % (Auto) 0.1 Baso % (Auto) 0.2 Lymph # (Auto) 3.2 [place] # (Auto) 0.6 Eos # (Auto) 0.0 Baso # (Auto) 0.0 Abs Immat Gran (auto) 0.26 H Absolute Neuts (auto) 7.2 Absolute Nucleated RBC 0.040 H Nucleated RBC % (auto) 0.4 H VBG pH 7.49 H VBG pCO2 39 VBG pO2 46 VBG HCO3 30 H VBG O2 Saturation 75.0 VBG Base Excess 6.8 Sodium 150 H Potassium 3.9 Chloride 115 H Carbon Dioxide 29 Anion Gap 10 L BUN 25 H Creatinine 0.75 Estim Creat Clear Calc 66.6 Estimated GFR > 60 POC Glucose Random Glucose 152 H Calcium 8.4 Phosphorus 2.8 Magnesium 2.2 Total Bilirubin 0.3 AST 70 H ALT 40 H Alkaline Phosphatase 126 H Total Protein 6.4 L Albumin 2.6 L 03/31/21 11:59 WBC RBC Hgb Hct MCV MCH MCHC RDW Plt Count MPV Immature Gran % (Auto) Neut % (Auto) Lymph % (Auto) [place] % (Auto) Eos % (Auto) Baso % (Auto) Lymph # (Auto) [place] # (Auto) Eos # (Auto) Baso # (Auto) Abs Immat Gran (auto) Absolute Neuts (auto) Absolute Nucleated RBC Nucleated RBC % (auto) VBG pH VBG pCO2 VBG pO2 VBG HCO3 VBG O2 Saturation VBG Base Excess Sodium Potassium Chloride Carbon Dioxide Anion Gap BUN Creatinine Estim Creat Clear Calc Estimated GFR POC Glucose 222 H Random Glucose Calcium Phosphorus Magnesium Total Bilirubin AST ALT Alkaline Phosphatase Total Protein Albumin Microbiology Microbiology Results: Microbiology 03/27/21 Unknown Urine Catheterized - Rashid Catheter Urine Culture - Final Escherichia coli 03/26/21 16:43 Blood - Venous Blood Culture - Final Escherichia coli 03/26/21 16:43 Blood - Venous Blood Culture - Preliminary No growth after 48 hours. Quality Stroke Does the patient have a stroke diagnosis?: No VTE Prior VTE?: No VTE Risk Level:: Medical - moderate - high VTE Device Contraindication: Treatment Not Indicated VTE Drug Contraindication: N/A - Med Ordered Progress Note: A&P Assessment and plan (1) Hypernatremia: Status: Acute (2) CVA (cerebral vascular accident): Status: Acute (3) Acute respiratory failure with hypoxemia: Status: Acute (4) Diastolic dysfunction: Status: Acute (5) Acute respiratory distress syndrome (ARDS) due to COVID-19 virus: Status: Acute (6) Encephalopathy: Status: Acute (7) UTI (urinary tract infection): Status: Acute (8) Bacteremia: Status: Acute (9) Lactic acid acidosis: Status: Acute (10) Pneumonia due to COVID-19 virus: Status: Acute (11) Acute hyperglycemia: Status: Acute (12) Acute kidney injury: Status: Acute (13) Respiratory failure with hypoxia: Status: Acute (14) Nonrheumatic aortic (valve) stenosis: Status: Acute (15) Type 2 diabetes mellitus with unspecified complications: Status: Acute (16) Essential hypertension: Status: Acute (17) Atherosclerotic cardiovascular disease: Status: Acute (18) Non-toxic multinodular goiter: Status: Acute (19) Diabetic polyneuropathy associated with type 2 diabetes mellitus: Status: Acute (20) Diabetes type 2, uncontrolled: Status: Acute (21) COPD (chronic obstructive pulmonary disease): Status: Acute (22) Obese: Status: Acute (23) Dyslipidemia: Status: Acute Assessment and Plan: So for now we will stay the course and continue to support and adding free water for the hyponatremia and will follow
[2021-03-31 18:17] LABS: Glucose, Whole Blood 338 mg/dL (60-115)
--- NOTE | 2021-03-31 19:10 | PC.NURSE ---
Tmax- 99.5, vss. sedated on versed and fentanyl, opens eyes to voice, unable to follow commands. LS clear, scant secretions, vent settings reamin the same SR/SB on tele, u/o wnl, tube feeds at max rate of 50ml/hr. repo q2hr, updated family over phone. on sister called and swore at FLOORING INST[employer]ER for stating we could not update her due to not being HCP. Imra- HCP updated about situation and understands reasoning.
[2021-03-31] MEDS: cefTRIAXone sodium 1 GM in 0.9 % Sodium Chloride 50 ML IV (23:01)
[2021-03-31 23:45] LABS: Glucose, Whole Blood 238 mg/dL (60-115)
[2021-04-01] VITALS (31 sets, daily range): BP systolic 105–172; BP diastolic 33–74; PULSE 44–111; RESP 14–19; TEMP 37–37.7; O2SAT 91–96
[2021-04-01] MEDS: Insulin Lispro 100 UNIT/ML 3 ML VIAL SUBCUT ×4 (00:30→17:48)
[2021-04-01] MEDS: 0.9 % Sodium Chloride Flush 3 ML SYRINGE IVFLUSH ×3 (00:31→14:41)
[2021-04-01] MEDS: Midazolam HCl/NS 50 MG/50 ML PLAST..BAG IVCONT ×2 (02:10→14:03)
[2021-04-01] MEDS: fentaNYL citrate/NS 1,000 MCG/100 ML PLAST..BAG 15 MCG IVCONT ×4 (02:10→20:38)
[2021-04-01] MEDS: Pantoprazole Sodium 40 MG/10 ML VIAL IVPUSH (05:28)
[2021-04-01 05:29] LABS: VBG Base Excess 3.4 mmol/L; VBG HCO3 27 mmol/L (22-26); VBG pCO2 37 mmHg; VBG pH 7.46 (7.32-7.43); VBG pO2 43 mmHg
[2021-04-01 05:31] LABS: Venous Blood Gas Refer to POC result
[2021-04-01 05:32] LABS: Glucose, Whole Blood 207 mg/dL (60-115)
[2021-04-01 05:32] LABS: MANUAL DIFF FLAG NO
[2021-04-01 05:38] LABS: Basophils Percent Auto 0.1 % (0-2); Eosinophils Percent Auto 0.3 % (0-4); Hematocrit 35.8 % (37-47); Hemoglobin 10.8 g/dl (12.0-16.0); Imm Gran Abs Auto 0.16 X10*3/uL (0.00-0.03); Imm Gran Pct Auto 1.5 % (0.0-0.4); Lymphocytes Absolute Auto 2.3 X10*3/uL (1.2-4.9); Lymphocytes Percent Auto 21.4 % (20-40); Mean Corpuscular HGB Conc 30.2 g/dl (31.0-35.0); Mean Corpuscular Hemoglobin 24.6 pg (27.0-33.0); Mean Corpuscular Volume 81.5 fL (80-98); Mean Platelet Volume 12.1 fL (9.4-12.3); Monocytes Absolute Auto 0.7 X10*3/uL (0.1-1.2); Monocytes Percent Auto 6.2 % (2-11); NRBC Pct Auto 0.2 /100WBC (0.0-0.2); Neutrophils Absolute Auto 7.6 X10*3/uL (2.0-8.3); Neutrophils Percent Auto 70.5 % (45-73); Platelet Count 259 X10*3/uL (160-400); Red Blood Count 4.39 X10*6/uL (4.20-5.50); Red Cell Distribution Width 15.5 % (11.0-16.0); White Blood Count 10.8 X10*3/uL (4.8-10.8)
[2021-04-01 06:05] LABS: D Dimer 1946 NG/ML
[2021-04-01 06:33] LABS: Albumin Level 2.5 g/dL (3.5-5.0); Anion Gap 12 (12-20); Blood Urea Nitrogen 23 mg/dL (9-16); Calcium 8.2 mg/dL (8.4-10.2); Carbon Dioxide 26 mmol/L (22-29); Chloride 112 mmol/L (96-108); Creatinine Clr Calc Pharmacy 68.4; Estimated Glomerular Filt Rate > 60; Glucose Random 231 mg/dL (60-115); Lactate Dehydrogenase 471 U/L (122-220); Magnesium 2.1 mg/dL (1.6-2.6); Phosphorus 2.8 mg/dL (2.7-4.5); Potassium 4.1 mmol/L (3.3-5.1); Sodium 146 mmol/L (135-145)
[2021-04-01] MEDS: Insulin Glargine,Hum.rec.anlog 100 UNIT/ML 10 ML VIAL 20 UNIT SUBCUT (09:26)
[2021-04-01] MEDS: ARIPiprazole 5 MG TABLET PO (09:26)
[2021-04-01] MEDS: dexAMETHasone sod phosphate 4 MG/ML VIAL 6 MG IVPUSH (09:26)
[2021-04-01] MEDS: Chlorhexidine Gluc Oral Rinse 15 ML MOUTHWASH BUCCAL ×3 (09:27→20:38)
[2021-04-01] MEDS: Enoxaparin Sodium 40 MG/0.4 ML SYRINGE SUBCUT (09:27)
--- NOTE | 2021-04-01 10:00 | MHC.CLN ---
F/U REVIEWED LABS NA IMPROVED BUT REMAINS ELEVATED PT RECEIVING GLUCERNA AT MAX GOAL 50ML/HR WITH 30ML PROSOURCE X1/DAY AND 240CC WATER FLUSHES Q 4 HRS PROVIDES 1260KCALS (23KCALS/KG), 65G TOTAL PROTEIN (1.2G/KG BASED ON CMW), 2464CC TOTAL WATER FROM FORMULA AND FLUSHES (45ML/KG) CONTINUE TO MONITOR TOLERANCE, RESIDUALS AND LYTES
[2021-04-01 11:47] LABS: Glucose, Whole Blood 234 mg/dL (60-115)
--- NOTE | 2021-04-01 13:56 | PM.CCPN ---
Subjective Subjective Date of Service: 04/01/21 Interval History: 65-year-old female diabetic and hypertensive with hypoxemic respiratory failure and intubated on FiO2 of 50% for COVID-19 pneumonitis / ARDS and basically stable with resolving hyponatremia Critical Care Time (minutes): 45 Physical Exam Vital Signs: Vital Signs: Last Vital Signs Temp 99.5 F 04/01/21 13:00 Pulse 50 04/01/21 13:00 Resp 18 04/01/21 13:00 BP 172/59 H 04/01/21 13:00 Pulse Ox 93 04/01/21 13:00 Body Mass Index 32.2 sedated and intubated but nonfocal neurologically stable CVP 5-7 with good bilateral carotid upstrokes no gallops lungs with bilateral coarse ventilat ory sounds abdomen benign tolerating feedings no organomegaly skin intact Objective Data Labs CBC & Chem 7: 04/01/21 05:20 04/01/21 05:20 Labs: Laboratory Results - last 24 hr 03/31/21 03/31/21 04/01/21 18:10 23:41 05:20 WBC 10.8 RBC 4.39 Hgb 10.8 L Hct 35.8 L MCV 81.5 MCH 24.6 L MCHC 30.2 L RDW 15.5 Plt Count 259 MPV 12.1 Immature Gran % (Auto) 1.5 H Neut % (Auto) 70.5 Lymph % (Auto) 21.4 [place] % (Auto) 6.2 Eos % (Auto) 0.3 Baso % (Auto) 0.1 Lymph # (Auto) 2.3 [place] # (Auto) 0.7 Eos # (Auto) 0.0 Baso # (Auto) 0.0 Abs Immat Gran (auto) 0.16 H Absolute Neuts (auto) 7.6 Absolute Nucleated RBC 0.020 H Nucleated RBC % (auto) 0.2 D-Dimer VBG pH VBG pCO2 VBG pO2 VBG HCO3 VBG O2 Saturation VBG Base Excess Sodium Potassium Chloride Carbon Dioxide Anion Gap BUN Creatinine Estim Creat Clear Calc Estimated GFR POC Glucose 338 H 238 H Random Glucose Calcium Phosphorus Magnesium Lactate Dehydrogenase Albumin 04/01/21 04/01/21 04/01/21 05:20 05:20 05:23 WBC RBC Hgb Hct MCV MCH MCHC RDW Plt Count MPV Immature Gran % (Auto) Neut % (Auto) Lymph % (Auto) [place] % (Auto) Eos % (Auto) Baso % (Auto) Lymph # (Auto) [place] # (Auto) Eos # (Auto) Baso # (Auto) Abs Immat Gran (auto) Absolute Neuts (auto) Absolute Nucleated RBC Nucleated RBC % (auto) D-Dimer 1946 VBG pH 7.46 H VBG pCO2 37 VBG pO2 43 VBG HCO3 27 H VBG O2 Saturation 71.0 VBG Base Excess 3.4 Sodium 146 H Potassium 4.1 Chloride 112 H Carbon Dioxide 26 Anion Gap 12 BUN 23 H Creatinine 0.73 Estim Creat Clear Calc 68.4 Estimated GFR > 60 POC Glucose Random Glucose 231 H Calcium 8.2 L Phosphorus 2.8 Magnesium 2.1 Lactate Dehydrogenase 471 H Albumin 2.5 L 04/01/21 04/01/21 05:28 11:39 WBC RBC Hgb Hct MCV MCH MCHC RDW Plt Count MPV Immature Gran % (Auto) Neut % (Auto) Lymph % (Auto) [place] % (Auto) Eos % (Auto) Baso % (Auto) Lymph # (Auto) [place] # (Auto) Eos # (Auto) Baso # (Auto) Abs Immat Gran (auto) Absolute Neuts (auto) Absolute Nucleated RBC Nucleated RBC % (auto) D-Dimer VBG pH VBG pCO2 VBG pO2 VBG HCO3 VBG O2 Saturation VBG Base Excess Sodium Potassium Chloride Carbon Dioxide Anion Gap BUN Creatinine Estim Creat Clear Calc Estimated GFR POC Glucose 207 H 234 H Random Glucose Calcium Phosphorus Magnesium Lactate Dehydrogenase Albumin Microbiology Microbiology Results: Microbiology 03/26/21 16:43 Blood - Venous Blood Culture - Final No growth after 5 days. 03/27/21 Unknown Urine Catheterized - Rashid Catheter Urine Culture - Final Escherichia coli 03/26/21 16:43 Blood - Venous Blood Culture - Final Escherichia coli Quality Stroke Does the patient have a stroke diagnosis?: No VTE Prior VTE?: No VTE Risk Level:: Medical - moderate - high VTE Device Contraindication: Treatment Not Indicated VTE Drug Contraindication: N/A - Med Ordered Progress Note: A&P Assessment and plan (1) Hypernatremia: Status: Acute (2) CVA (cerebral vascular accident): Status: Acute (3) Acute respiratory failure with hypoxemia: Status: Acute (4) Diastolic dysfunction: Status: Acute (5) Acute respiratory distress syndrome (ARDS) due to COVID-19 virus: Status: Acute (6) Encephalopathy: Status: Acute (7) UTI (urinary tract infection): Status: Acute (8) Bacteremia: Status: Acute (9) Lactic acid acidosis: Status: Acute (10) Pneumonia due to COVID-19 virus: Status: Acute (11) Acute hyperglycemia: Status: Acute (12) Acute kidney injury: Status: Acute (13) Respiratory failure with hypoxia: Status: Acute (14) Right hip pain: Status: Acute (15) Nonrheumatic aortic (valve) stenosis: Status: Acute (16) Type 2 diabetes mellitus with unspecified complications: Status: Acute (17) Essential hypertension: Status: Acute (18) Atherosclerotic cardiovascular disease: Status: Acute (19) Non-toxic multinodular goiter: Status: Acute (20) Diabetic polyneuropathy associated with type 2 diabetes mellitus: Status: Acute (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
[2021-04-01] MEDS: Albuterol Sulfate (0.083%) 2.5 MG/3 ML VIAL.NEB 5 MG INHALE (14:31)
[2021-04-01] MEDS: Acetylcysteine 10 % 400 MG/4 ML VIAL INHALE (14:31)
--- NOTE | 2021-04-01 15:03 | PHA.PROG ---
Admission Date/Time: March 26, 2021 22:24 Indication: Respiratory Infection Weight in k.843 kg Adjusted body weight in K.737 kg [place] body weight in K.5 lg Obesity Dosing Indication % IBW: Serum Creatinine - Last 168 Hours 03/26/21 03/26/21 03/27/21 16:43 20:04 04:03 Creatinine 2.41 H 1.80 H 1.41 H 03/28/21 03/29/21 03/30/21 06:23 05:59 05:09 Creatinine 0.98 0.76 0.79 03/31/21 04/01/21 05:20 05:20 Creatinine 0.75 0.73 Estimated CrCl and GFR - Last 168 Hours 03/26/21 03/26/21 03/27/21 16:43 20:04 04:03 Estim Creat Clear Calc 20.7 27.7 35.4 Estimated GFR 20 28 37 03/28/21 03/29/21 03/30/21 06:23 05:59 05:09 Estim Creat Clear Calc 51.0 65.8 63.2 Estimated GFR 57 > 60 > 60 03/31/21 04/01/21 05:20 05:20 Estim Creat Clear Calc 66.6 68.4 Estimated GFR > 60 > 60 Vancomycin Loading Dose: n/a Current Vancomycin Dosing Regimen: 1500mg q24h Vancomycin Monitoring using AUC goal of 400 - 600 range with trough as surrogate marker: AUC 502 Date and Time for next Vancomycin Level to be drawn: 04/03/2021 @ 1400 Pharmacist Comments on Vancomycin Plan: 1500mg Q24H with expected trough at steady state to be 14.3 with an AUC of 502 Vancomycin dosing will take advantage of [employer] as a clinical decision support tool that uses Bayesian modeling to calculate individual patient's pharmacokinetic parameters and forecast the patient's drug concentration time course with the target goal AUC 24 range of 400 - 600 mg/L/hr.
[2021-04-01] MEDS: cefEPime HCl 2 GM in 0.9 % Sodium Chloride 50 ML IV ×2 (16:04→23:01)
[2021-04-01] MEDS: vancomycin HCL 1,500 MG in 0.9 % Sodium Chloride 500 ML 333.33 MG IV (16:04)
[2021-04-01] MEDS: Midazolam HCl/PF 2 MG/2 ML VIAL 3 MG IVPUSH (16:05)
--- NOTE | 2021-04-01 17:31 | PC.NURSE ---
S/E Afebrile, WBC 10.8 Sedated on Versed & Propofol gtts Weak cough & gag, absent pain response Eyes open to tactile stimuli; Pupils 2mm, sluggish SB-SR HR 40-60's, no ectopy R IJ TLC patent - Dressing C/D/I CVP 6-10 Expiratory rhonchi bilat upper lobes O2 sat down high 80's, tidal volumes down to mid 100's Large amount of thick cream/pink tinged inline secretions RT & MD @ bedside to lavage - Mucomyst administered SC ordered and results pending CXR ordered and completed - see report #7.5 ETT, 25 cm @ lip; Vent settings unchanged: AC 18/450/8/50% Continued on Decadron & Baricitnib Abdomen soft, hypoactive bowel sounds, no BM Tolerating tube feeds well; Residuals 160cc; Prosource administered POC 200-300's - continued on Lantus 20u & Humalog SS q6 Rashid patent - approx 50-100cc yellow urine per hr Rocephin D/C'd - switched to Vanco 1500 q24 & Cefepime 2g q8 Redness/bruising noted, no other skin integrity concerns Bathed, barrier cream applied; Unable to repo q2hr d/t mucus plugging Prevlon system & air loss attachment in place
[2021-04-01 17:40] LABS: Glucose, Whole Blood 333 mg/dL (60-115)
[2021-04-01] MEDS: Albuterol/Iprat 2.5/0.5MG 3 ML AMPUL.NEB INHALE (20:28)
[2021-04-01] MEDS: Midazolam HCl/NS 50 MG/50 ML PLAST..BAG 6 MG IVCONT (20:38)
[2021-04-02] VITALS (34 sets, daily range): BP systolic 101–249; BP diastolic 41–129; PULSE 47–140; RESP 18–35; TEMP 37–37.3; O2SAT 78–100
[2021-04-02] MEDS: 0.9 % Sodium Chloride Flush 3 ML SYRINGE IVFLUSH ×3 (00:17→16:36)
[2021-04-02] MEDS: Insulin Lispro 100 UNIT/ML 3 ML VIAL SUBCUT ×4 (00:17→19:14)
[2021-04-02 00:20] LABS: Glucose, Whole Blood 279 mg/dL (60-115)
[2021-04-02] MEDS: fentaNYL citrate/NS 1,000 MCG/100 ML PLAST..BAG 10 MCG IVCONT (04:06)
[2021-04-02 05:39] LABS: VBG HCO3 23 mmol/L (22-26); VBG pCO2 33 mmHg; VBG pH 7.45 (7.32-7.43); VBG pO2 45 mmHg
[2021-04-02 05:39] LABS: MANUAL DIFF FLAG NO
[2021-04-02 05:44] LABS: Basophils Percent Auto 0.1 % (0-2); Eosinophils Percent Auto 0.3 % (0-4); Hematocrit 34.5 % (37-47); Hemoglobin 10.4 g/dl (12.0-16.0); Imm Gran Abs Auto 0.09 X10*3/uL (0.00-0.03); Imm Gran Pct Auto 0.9 % (0.0-0.4); Lymphocytes Absolute Auto 1.5 X10*3/uL (1.2-4.9); Lymphocytes Percent Auto 15.3 % (20-40); Mean Corpuscular HGB Conc 30.1 g/dl (31.0-35.0); Mean Corpuscular Hemoglobin 24.7 pg (27.0-33.0); Mean Corpuscular Volume 81.9 fL (80-98); Mean Platelet Volume 12.5 fL (9.4-12.3); Monocytes Absolute Auto 0.6 X10*3/uL (0.1-1.2); Monocytes Percent Auto 6.2 % (2-11); Neutrophils Absolute Auto 7.7 X10*3/uL (2.0-8.3); Neutrophils Percent Auto 77.2 % (45-73); Platelet Count 239 X10*3/uL (160-400); Red Blood Count 4.21 X10*6/uL (4.20-5.50); Red Cell Distribution Width 15.4 % (11.0-16.0)
[2021-04-02 06:06] LABS: Glucose, Whole Blood 236 mg/dL (60-115)
[2021-04-02 06:16] LABS: Albumin Level 2.5 g/dL (3.5-5.0); Anion Gap 9 (12-20); Blood Urea Nitrogen 23 mg/dL (9-16); Calcium 8.1 mg/dL (8.4-10.2); Carbon Dioxide 26 mmol/L (22-29); Chloride 109 mmol/L (96-108); Creatinine Clr Calc Pharmacy 66.6; Estimated Glomerular Filt Rate > 60; Glucose Random 247 mg/dL (60-115); Magnesium 2.1 mg/dL (1.6-2.6); Phosphorus 2.7 mg/dL (2.7-4.5); Potassium 4.2 mmol/L (3.3-5.1); Sodium 140 mmol/L (135-145)
[2021-04-02 06:55] LABS: Venous Blood Gas Refer to POC result
[2021-04-02] MEDS: cefEPime HCl 2 GM in 0.9 % Sodium Chloride 50 ML IV (08:38)
[2021-04-02] MEDS: Chlorhexidine Gluc Oral Rinse 15 ML MOUTHWASH BUCCAL ×3 (08:38→20:44)
[2021-04-02] MEDS: ARIPiprazole 5 MG TABLET PO (08:39)
[2021-04-02] MEDS: Insulin Glargine,Hum.rec.anlog 100 UNIT/ML 10 ML VIAL 20 UNIT SUBCUT (08:39)
[2021-04-02] MEDS: dexAMETHasone sod phosphate 4 MG/ML VIAL 6 MG IVPUSH (08:39)
[2021-04-02] MEDS: Enoxaparin Sodium 40 MG/0.4 ML SYRINGE SUBCUT (08:41)
--- NOTE | 2021-04-02 09:30 | MHC.CDI.CONC ---
CDI Concurrent Query Documentation Clarification: PHYSICIAN'S DOCUMENTATION REQUEST Date of Query: 04/02/21930 Patient Name: Lillie Clemons Admit Date: 03/26/21 Dear Doctor, A review of the medical record indicates additional documentation may be needed. Please review below and update the documentation accordingly. Anoxic brain injury POA Anoxic brain injury Treating, rule out Other, please specify if known or undetermined Risk Factors/Clinical Indicators/Treatments H&P: Not responding to commands, anxiety, hypoxic, ? anxiety vs. anoxic injury. Event note 03/28 - Wondering if suffering anoxic brain injury from prolonged hypoxia present upon hospitalization. Please clarify the following: [Diagnosis] was present on admission and is now resolved [Diagnosis] was present on admission and is still being monitored, evaluated, or treated [Diagnosis] was ruled out [Diagnosis] is still a likely, suspected, probable diagnosis Other (please specify) Unable to determine Use of terms such as suspected, likely, concern for, or probable (associated with a specific diagnosis that is being evaluated, monitored, or treated as if it exists) are acceptable and can be coded in the inpatient setting, when documented at the time of discharge. Thank you, Jeri Banda [facility], CDIS Extension: [phone] Please use your independent medical judgment in providing your response. 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
--- NOTE | 2021-04-02 10:24 | MHC.CLN ---
F/U REVIEWED LABS NA NOW WNL PT RECEIVING GLUCERNA AT MAX GOAL 50ML/HR WITH 30ML PROSOURCE X1/DAY AND 240CC WATER FLUSHES Q 4 HRS PROVIDES 1260KCALS (23KCALS/KG), 65G TOTAL PROTEIN (1.2G/KG BASED ON CMW), 2464CC TOTAL WATER FROM FORMULA AND FLUSHES (45ML/KG) PT IS TOLERATING TF WITH LOW RESIDUALS RECOMMEND REDUCING WATER FLUSHES TO 120 Q 4HRS TO PROVIDE 1743CC TOTAL WATER FROM FORMULA AND FLUSHES (31.7ML/KG) CONTINUE TO MONITOR TOLERANCE, RESIDUALS AND LYTES
[2021-04-02 11:17] LABS: Glucose, Whole Blood 236 mg/dL (60-115)
[2021-04-02] MEDS: propofoL 200 MG/20 ML VIAL 30 MG IVPUSH (11:36)
[2021-04-02] MEDS: propofoL 1,000 MG/100 ML VIAL 8.98 MG IVCONT ×2 (11:37→17:47)
--- NOTE | 2021-04-02 12:15 | PM.CCPN ---
Subjective Subjective Date of Service: 04/02/21 Interval History: A 65-year-old female with hypoxemic respiratory failure intubated and she is post vaccination but has COVID-19 pneumonitis with ARDS yesterday had an acute episode based on mucus plugging which required Mucomyst and aggressive bronchodilator therapy and that resolved FiO2 in the last 48 hours has come down from 50% to 40% and we gave her a trial of sedation off today she really did not open her eyes specifically on command but she did tolerate for several hours a pressure support trial and then finally end-tidal CO2 is began to diminish respiratory rate came up increased coughing apparent distress more tachypneic and ultimately oxygen saturation dropped along with a drop in tidal volume patient was then recent dated but this time with propofol hopefully maintain low-dose making it easier to lift sedation in the morning Sputum preliminarily is just growing Preethi and this is a lady was on broad-spectrum antibiotics for urinary tract infection due to E coli Critical Care Time (minutes): 45 Physical Exam Vital Signs: Vital Signs: Last Vital Signs Temp 99.0 F 04/02/21 12:00 Pulse 71 04/02/21 12:00 Resp 19 04/02/21 12:00 BP 169/73 H 04/02/21 12:00 Pulse Ox 91 L 04/02/21 12:00 Body Mass Index 32.2 Awakens without specifically opening her eyes or following commands so still no demonstration of cognitive function but nonfocal neurologically Failed a pressure support trial and recent dated CVP about 9-10 in normal sinus rhythm but patient is hypertensive and she does have a history of ischemic heart disease and prior stenting Abdomen benign soft it did tolerate feeds no again a megaly Chest with scattered bilateral Objective Data Labs CBC & Chem 7: 04/02/21 05:20 04/02/21 05:20 Labs: Laboratory Results - last 24 hr 04/01/21 04/02/21 04/02/21 17:35 00:11 05:20 WBC 10.0 RBC 4.21 Hgb 10.4 L Hct 34.5 L MCV 81.9 MCH 24.7 L MCHC 30.1 L RDW 15.4 Plt Count 239 MPV 12.5 H Immature Gran % (Auto) 0.9 H Neut % (Auto) 77.2 H Lymph % (Auto) 15.3 L [place] % (Auto) 6.2 Eos % (Auto) 0.3 Baso % (Auto) 0.1 Lymph # (Auto) 1.5 [place] # (Auto) 0.6 Eos # (Auto) 0.0 Baso # (Auto) 0.0 Abs Immat Gran (auto) 0.09 H Absolute Neuts (auto) 7.7 Absolute Nucleated RBC 0.000 Nucleated RBC % (auto) 0.0 VBG pH VBG pCO2 VBG pO2 VBG HCO3 VBG O2 Saturation VBG Base Excess Sodium Potassium Chloride Carbon Dioxide Anion Gap BUN Creatinine Estim Creat Clear Calc Estimated GFR POC Glucose 333 H 279 H Random Glucose Calcium Phosphorus Magnesium Albumin 04/02/21 04/02/21 04/02/21 05:20 05:34 05:52 WBC RBC Hgb Hct MCV MCH MCHC RDW Plt Count MPV Immature Gran % (Auto) Neut % (Auto) Lymph % (Auto) [place] % (Auto) Eos % (Auto) Baso % (Auto) Lymph # (Auto) [place] # (Auto) Eos # (Auto) Baso # (Auto) Abs Immat Gran (auto) Absolute Neuts (auto) Absolute Nucleated RBC Nucleated RBC % (auto) VBG pH 7.45 H VBG pCO2 33 VBG pO2 45 VBG HCO3 23 VBG O2 Saturation 74.0 VBG Base Excess 0.0 Sodium 140 Potassium 4.2 Chloride 109 H Carbon Dioxide 26 Anion Gap 9 L BUN 23 H Creatinine 0.75 Estim Creat Clear Calc 66.6 Estimated GFR > 60 POC Glucose 236 H Random Glucose 247 H Calcium 8.1 L Phosphorus 2.7 Magnesium 2.1 Albumin 2.5 L 04/02/21 10:57 WBC RBC Hgb Hct MCV MCH MCHC RDW Plt Count MPV Immature Gran % (Auto) Neut % (Auto) Lymph % (Auto) [place] % (Auto) Eos % (Auto) Baso % (Auto) Lymph # (Auto) [place] # (Auto) Eos # (Auto) Baso # (Auto) Abs Immat Gran (auto) Absolute Neuts (auto) Absolute Nucleated RBC Nucleated RBC % (auto) VBG pH VBG pCO2 VBG pO2 VBG HCO3 VBG O2 Saturation VBG Base Excess Sodium Potassium Chloride Carbon Dioxide Anion Gap BUN Creatinine Estim Creat Clear Calc Estimated GFR POC Glucose 236 H Random Glucose Calcium Phosphorus Magnesium Albumin Microbiology Microbiology Results: Microbiology 04/01/21 14:28 Sputum - Suctioned Gram Stain - Final 04/01/21 14:28 Sputum - Suctioned Sputum Culture - Preliminary Yeast 03/26/21 16:43 Blood - Venous Blood Culture - Final No growth after 5 days. 03/27/21 Unknown Urine Catheterized - Rashid Catheter Urine Culture - Final Escherichia coli 03/26/21 16:43 Blood - Venous Blood Culture - Final Escherichia coli Quality Stroke Does the patient have a stroke diagnosis?: No VTE Prior VTE?: No VTE Risk Level:: Medical - moderate - high VTE Device Contraindication: Treatment Not Indicated VTE Drug Contraindication: N/A - Med Ordered Progress Note: A&P Assessment and plan (1) Hypernatremia: Status: Acute (2) CVA (cerebral vascular accident): Status: Acute (3) Acute respiratory failure with hypoxemia: Status: Acute (4) Diastolic dysfunction: Status: Acute (5) Acute respiratory distress syndrome (ARDS) due to COVID-19 virus: Status: Acute (6) Encephalopathy: Status: Acute (7) UTI (urinary tract infection): Status: Acute (8) Bacteremia: Status: Acute (9) Lactic acid acidosis: Status: Acute (10) Pneumonia due to COVID-19 virus: Status: Acute (11) Acute hyperglycemia: Status: Acute (12) Acute kidney injury: Status: Acute (13) Respiratory failure with hypoxia: Status: Acute (14) Right hip pain: Status: Acute (15) Nonrheumatic aortic (valve) stenosis: Status: Acute (16) Type 2 diabetes mellitus with unspecified complications: Status: Acute (17) Essential hypertension: Status: Acute (18) Atherosclerotic cardiovascular disease: Status: Acute (19) Non-toxic multinodular goiter: Status: Acute (20) Diabetic polyneuropathy associated with type 2 diabetes mellitus: Status: Acute (21) longterm (current) use of insulin: Status: Acute (22) Diabetes type 2, uncontrolled: Status: Acute (23) COPD (chronic obstructive pulmonary disease): Status: Acute (24) Obese: Status: Acute (25) Dyslipidemia: Status: Acute (26) HTN (hypertension): Status: Acute (27) Right hip pain: Status: Acute (28) Left hip pain: Status: Acute (29) Diabetes: Status: Acute Assessment and Plan: Recent dating with propofol and hopefully attempt to stop in the morning for sedation holiday and if cognitive function is appropriate and other pressure support weaning trial I believe that the Preethi that is growing is probably a selected commensal and I will treat that There was no new infiltrate today on chest x-ray
--- NOTE | 2021-04-02 13:04 | PC.NURSE ---
0845 initiated sedation vacation from fentanyl and versed drips per MD. RT at bedside, patient placed on PS 20/8 fio2 of 30% from AC settings 18/450/8 and 40% fio2. Patient able to open eyes spontaneously but unable to track, follow commands, or make purposeful movements. MD aware. Patient tolerated fairly well until around 11:30 when patient became restless with increase respiratory effort. HR trending up into the 140s, BP as high as 249/129, and O2 saturation decreased to 86%. MD made aware. Re-sedated patient with a propofol drip. RT adjusted vent settings to PS 25/80 and 40% fio2. HR 135/67, BP 135/67 and RR 28. O2 sats still trending in the high 80s. Patient then placed on AC VC settings: 18/450/8 and 40%. O2 sats increased to 93%. Synchronous with vent. Appears to be comfortably sedated. BP still trending around 179/70, MD aware, no new orders at this time. Will continue to monitor HR on propofol d/t patient being sinus jose HR 47 this morning, MD also aware.
[2021-04-02] MEDS: Albuterol/Iprat 2.5/0.5MG 3 ML AMPUL.NEB INHALE ×2 (15:50→20:12)
--- NOTE | 2021-04-02 16:05 | MHC.CM.PN ---
Pt remains in ICU on vent support with COVID. FiO2 is at 40%. D/C planning remains ongoing and will depend on pt's ability to vent wean. CM to follow
[2021-04-02 19:15] LABS: Glucose, Whole Blood 347 mg/dL (60-115)
[2021-04-03] VITALS (33 sets, daily range): BP systolic 105–201; BP diastolic 46–104; PULSE 52–130; RESP 18–29; TEMP 37.2–37.9; O2SAT 91–98
[2021-04-03] MEDS: Insulin Lispro 100 UNIT/ML 3 ML VIAL SUBCUT ×4 (00:08→18:33)
[2021-04-03] MEDS: 0.9 % Sodium Chloride Flush 3 ML SYRINGE IVFLUSH ×3 (00:09→15:24)
[2021-04-03 02:19] LABS: Glucose, Whole Blood 261 mg/dL (60-115)
[2021-04-03] MEDS: propofoL 1,000 MG/100 ML VIAL 8.98 MG IVCONT ×2 (03:05→12:12)
--- NOTE | 2021-04-03 05:11 | PC.NURSE ---
Pt maintained on AC vent settings. Moderately sedated with Propofol 20 mcg/kg/min. Opens eyes slightly when care is given. Bp and Hr will go up with care. Sbp up to 180-190's and Hr up to 120's. Monitor shows SB 50's at rest. U/O is good, 50-100 ml/hr. Tolerating tube feeds at 50 ml/hr. Residuals of 5-15 ml noted. Turned and repos q2h.
[2021-04-03 05:40] LABS: VBG Base Excess 6.7 mmol/L; VBG HCO3 31 mmol/L (22-26); VBG pCO2 43 mmHg; VBG pH 7.46 (7.32-7.43); VBG pO2 45 mmHg
[2021-04-03 05:47] LABS: Venous Blood Gas Refer to POC result
[2021-04-03 05:51] LABS: MANUAL DIFF FLAG NO
[2021-04-03 05:55] LABS: Basophils Percent Auto 0.1 % (0-2); Eosinophils Absolute Auto 0.1 X10*3/uL (0.0-0.4); Eosinophils Percent Auto 0.7 % (0-4); Hematocrit 34.4 % (37-47); Hemoglobin 10.6 g/dl (12.0-16.0); Imm Gran Abs Auto 0.09 X10*3/uL (0.00-0.03); Imm Gran Pct Auto 0.8 % (0.0-0.4); Lymphocytes Absolute Auto 1.9 X10*3/uL (1.2-4.9); Lymphocytes Percent Auto 17.3 % (20-40); Mean Corpuscular HGB Conc 30.8 g/dl (31.0-35.0); Mean Corpuscular Hemoglobin 24.8 pg (27.0-33.0); Mean Corpuscular Volume 80.6 fL (80-98); Mean Platelet Volume 12.6 fL (9.4-12.3); Monocytes Absolute Auto 0.6 X10*3/uL (0.1-1.2); Monocytes Percent Auto 5.9 % (2-11); Neutrophils Absolute Auto 8.1 X10*3/uL (2.0-8.3); Neutrophils Percent Auto 75.2 % (45-73); Platelet Count 246 X10*3/uL (160-400); Red Blood Count 4.27 X10*6/uL (4.20-5.50); Red Cell Distribution Width 15.2 % (11.0-16.0); White Blood Count 10.7 X10*3/uL (4.8-10.8)
[2021-04-03 06:03] LABS: Glucose, Whole Blood 190 mg/dL (60-115)
[2021-04-03 06:19] LABS: Anion Gap 9 (12-20); Blood Urea Nitrogen 22 mg/dL (9-16); Calcium 8.5 mg/dL (8.4-10.2); Carbon Dioxide 30 mmol/L (22-29); Chloride 105 mmol/L (96-108); Creatinine Clr Calc Pharmacy 70.4; Estimated Glomerular Filt Rate > 60; Glucose Random 211 mg/dL (60-115); Phosphorus 2.6 mg/dL (2.7-4.5); Potassium 3.7 mmol/L (3.3-5.1); Sodium 140 mmol/L (135-145)
[2021-04-03] MEDS: Albuterol/Iprat 2.5/0.5MG 3 ML AMPUL.NEB INHALE ×2 (07:58→15:06)
[2021-04-03] MEDS: dexAMETHasone sod phosphate 4 MG/ML VIAL 5 MG IVPUSH (08:28)
[2021-04-03] MEDS: ARIPiprazole 5 MG TABLET PO (08:29)
[2021-04-03] MEDS: Chlorhexidine Gluc Oral Rinse 15 ML MOUTHWASH BUCCAL ×3 (08:29→22:41)
[2021-04-03] MEDS: Insulin Glargine,Hum.rec.anlog 100 UNIT/ML 10 ML VIAL 20 UNIT SUBCUT (08:29)
[2021-04-03] MEDS: Enoxaparin Sodium 40 MG/0.4 ML SYRINGE SUBCUT (08:30)
--- NOTE | 2021-04-03 10:14 | MHC.CLN ---
Addendum entered by Muna Alfonso, MARY 04/03/21 11:14: agree with providers assessment below pt received propofol provides an additional 235kcals (1495kcals total from formula and sedation; 27kcals/kg based on cmw) Original Note: F/U PT RECEIVING GLUCERNA AT MAX GOAL 50ML/HR WITH 30ML PROSOURCE X1/DAY AND 120CC WATER FLUSHES Q 4 HRS PROVIDES 1260KCALS (23KCALS/KG ON CMW), 65G TOTAL PROTEIN (1.2G/KG BASED ON CMW), 1743CC TOTAL WATER FROM FORMULA AND FLUSHES (31.7ML/KG) PT IS TOLERATING TF WITH LOW RESIDUALS CONTINUE TO MONITOR TOLERANCE, RESIDUALS AND LYTES
--- NOTE | 2021-04-03 10:29 | PM.CCPN ---
Subjective Subjective Date of Service: 04/03/21 Interval History: 65-year-old diabetic hypertensive moderately obese female intubated but on FiO2 of only 40% with minutes ventilatory requirements of only 9 L and underlying COVID-19 pneumonitis/ARDS with hypoxemic respiratory failure We attempted a wean yesterday and she lasted 2 hours with a drop in her tidal volume and increase tachypnea today on the same settings of inspiratory pressure of 25 and PEEP of 8 she is maintaining mean right now for about an hour and a half tidal volumes of 420 minutes ventilation 8.75 liters/minute saturation of oxygen 93% on rate 90 2 blood pressure 174/69 seems to be comfortable this no significant respiratory effort but respiratory rates do climb up into the range of 27-28 and she truly has not yet followed commands follow with her eyes or demonstrated any other form of of cognitive return Critical Care Time (minutes): 45 Physical Exam Vital Signs: Vital Signs: Last Vital Signs Temp 100.0 F 04/03/21 10:00 Pulse 108 H 04/03/21 10:00 Resp 27 H 04/03/21 10:00 BP 174/69 H 04/03/21 10:00 Pulse Ox 93 04/03/21 10:00 Body Mass Index 32.2 So far had spontaneously or reflex Adrienne squeeze your fingers but not on demand She was only on propofol but still seems to remain somewhat sedated but I sense that she hears you in the room Skin is intact Chest without accessory muscle or diaphragmatic effort and no adventitious sounds Cardiac with CVP of 7 and no neck vein distension and good bilateral carotid upstrokes Benign abdomen no organomegaly good bowel sounds Objective Data Labs CBC & Chem 7: 04/03/21 05:35 04/03/21 05:35 Labs: Laboratory Results - last 24 hr 04/02/21 04/02/21 04/03/21 10:57 19:11 00:02 WBC RBC Hgb Hct MCV MCH MCHC RDW Plt Count MPV Immature Gran % (Auto) Neut % (Auto) Lymph % (Auto) [place] % (Auto) Eos % (Auto) Baso % (Auto) Lymph # (Auto) [place] # (Auto) Eos # (Auto) Baso # (Auto) Abs Immat Gran (auto) Absolute Neuts (auto) Absolute Nucleated RBC Nucleated RBC % (auto) VBG pH VBG pCO2 VBG pO2 VBG HCO3 VBG O2 Saturation VBG Base Excess Sodium Potassium Chloride Carbon Dioxide Anion Gap BUN Creatinine Estim Creat Clear Calc Estimated GFR POC Glucose 236 H 347 H 261 H Random Glucose Calcium Phosphorus Magnesium 04/03/21 04/03/21 04/03/21 05:35 05:35 05:35 WBC 10.7 RBC 4.27 Hgb 10.6 L Hct 34.4 L MCV 80.6 MCH 24.8 L MCHC 30.8 L RDW 15.2 Plt Count 246 MPV 12.6 H Immature Gran % (Auto) 0.8 H Neut % (Auto) 75.2 H Lymph % (Auto) 17.3 L [place] % (Auto) 5.9 Eos % (Auto) 0.7 Baso % (Auto) 0.1 Lymph # (Auto) 1.9 [place] # (Auto) 0.6 Eos # (Auto) 0.1 Baso # (Auto) 0.0 Abs Immat Gran (auto) 0.09 H Absolute Neuts (auto) 8.1 Absolute Nucleated RBC 0.000 Nucleated RBC % (auto) 0.0 VBG pH 7.46 H VBG pCO2 43 VBG pO2 45 VBG HCO3 31 H VBG O2 Saturation 73.0 VBG Base Excess 6.7 Sodium 140 Potassium 3.7 Chloride 105 Carbon Dioxide 30 H Anion Gap 9 L BUN 22 H Creatinine 0.71 Estim Creat Clear Calc 70.4 Estimated GFR > 60 POC Glucose Random Glucose 211 H Calcium 8.5 Phosphorus 2.6 L Magnesium 2.0 04/03/21 05:55 WBC RBC Hgb Hct MCV MCH MCHC RDW Plt Count MPV Immature Gran % (Auto) Neut % (Auto) Lymph % (Auto) [place] % (Auto) Eos % (Auto) Baso % (Auto) Lymph # (Auto) [place] # (Auto) Eos # (Auto) Baso # (Auto) Abs Immat Gran (auto) Absolute Neuts (auto) Absolute Nucleated RBC Nucleated RBC % (auto) VBG pH VBG pCO2 VBG pO2 VBG HCO3 VBG O2 Saturation VBG Base Excess Sodium Potassium Chloride Carbon Dioxide Anion Gap BUN Creatinine Estim Creat Clear Calc Estimated GFR POC Glucose 190 H Random Glucose Calcium Phosphorus Magnesium Microbiology Microbiology Results: Microbiology 04/01/21 14:28 Sputum - Suctioned Gram Stain - Final 04/01/21 14:28 Sputum - Suctioned Sputum Culture - Preliminary Yeast 03/26/21 16:43 Blood - Venous Blood Culture - Final No growth after 5 days. 03/27/21 Unknown Urine Catheterized - Rashid Catheter Urine Culture - Final Escherichia coli 03/26/21 16:43 Blood - Venous Blood Culture - Final Escherichia coli Quality Stroke Does the patient have a stroke diagnosis?: No VTE Prior VTE?: No VTE Risk Level:: Medical - moderate - high VTE Device Contraindication: Treatment Not Indicated VTE Drug Contraindication: N/A - Med Ordered Progress Note: A&P Assessment and plan (1) Hypernatremia: Status: Acute (2) CVA (cerebral vascular accident): Status: Acute (3) Acute respiratory failure with hypoxemia: Status: Acute (4) Diastolic dysfunction: Status: Acute (5) Acute respiratory distress syndrome (ARDS) due to COVID-19 virus: Status: Acute (6) Encephalopathy: Status: Acute (7) UTI (urinary tract infection): Status: Acute (8) Bacteremia: Status: Acute (9) Lactic acid acidosis: Status: Acute (10) Pneumonia due to COVID-19 virus: Status: Acute (11) Acute hyperglycemia: Status: Acute (12) Acute kidney injury: Status: Acute (13) Respiratory failure with hypoxia: Status: Acute (14) Right hip pain: Status: Acute (15) Nonrheumatic aortic (valve) stenosis: Status: Acute (16) Type 2 diabetes mellitus with unspecified complications: Status: Acute (17) Essential hypertension: Status: Acute (18) Atherosclerotic cardiovascular disease: Status: Acute (19) Non-toxic multinodular goiter: Status: Acute (20) Diabetic polyneuropathy associated with type 2 diabetes mellitus: Status: Acute (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
[2021-04-03 12:04] LABS: Glucose, Whole Blood 224 mg/dL (60-115)
[2021-04-03] MEDS: propofoL 1,000 MG/100 ML VIAL 17.96 MG IVCONT (16:27)
[2021-04-03 18:32] LABS: Glucose, Whole Blood 323 mg/dL (60-115)
--- NOTE | 2021-04-03 19:33 | PC.NURSE ---
Assumed care at 0700; excellent sedation holiday today from 08:30 - 12:30, initially was tachypneioc and tachycardic in the 120's-130's, but this came down rapidly with PSV settings of 25/8 at 40%, Patient was able to follow all commands, moved all extremities, denied pain. Patient continues with ETT 7.5 cm zarina; back on AC settings as of 12:30 pm, 18; 450; 8; 40%, SpO2 98% this evening. Patient synchronous this evening. sinus bradycardia in 50's with propofol back on at 30. some high blood pressures 140's-160's systolic. topete outputs substantial: 130's-150's. high POC in afternoon 323. TF was held during sedation holiday, restarted at 12:30, increased, now running at 40 cc/hour. Skin was noted to have right hip DTI and a small open area related to maceration at the distal left corner of the dresssing of the TLC. Chidi 2.6MD aware.
[2021-04-03] MEDS: propofoL 1,000 MG/100 ML VIAL 13.47 MG IVCONT (22:28)
[2021-04-03 23:49] LABS: Glucose, Whole Blood 207 mg/dL (60-115)
[2021-04-04] VITALS (32 sets, daily range): BP systolic 97–176; BP diastolic 48–97; PULSE 52–147; RESP 18–39; TEMP 37.2–38.5; O2SAT 88–99
[2021-04-04] MEDS: Insulin Lispro 100 UNIT/ML 3 ML VIAL SUBCUT ×3 (00:21→18:24)
[2021-04-04] MEDS: propofoL 1,000 MG/100 ML VIAL 13.47 MG IVCONT ×2 (03:49→06:41)
[2021-04-04] MEDS: 0.9 % Sodium Chloride Flush 3 ML SYRINGE IVFLUSH ×3 (03:51→15:27)
[2021-04-04 05:13] LABS: Glucose, Whole Blood 136 mg/dL (60-115)
[2021-04-04 05:35] LABS: MANUAL DIFF FLAG NO
[2021-04-04 05:39] LABS: Basophils Percent Auto 0.1 % (0-2); Eosinophils Absolute Auto 0.1 X10*3/uL (0.0-0.4); Eosinophils Percent Auto 0.7 % (0-4); Hematocrit 34.9 % (37-47); Hemoglobin 10.8 g/dl (12.0-16.0); Imm Gran Abs Auto 0.07 X10*3/uL (0.00-0.03); Imm Gran Pct Auto 0.6 % (0.0-0.4); Lymphocytes Absolute Auto 2.7 X10*3/uL (1.2-4.9); Lymphocytes Percent Auto 21.9 % (20-40); Mean Corpuscular HGB Conc 30.9 g/dl (31.0-35.0); Mean Corpuscular Hemoglobin 24.8 pg (27.0-33.0); Mean Corpuscular Volume 80.2 fL (80-98); Mean Platelet Volume 12.5 fL (9.4-12.3); Monocytes Absolute Auto 0.8 X10*3/uL (0.1-1.2); Monocytes Percent Auto 6.7 % (2-11); Neutrophils Absolute Auto 8.7 X10*3/uL (2.0-8.3); Platelet Count 261 X10*3/uL (160-400); Red Blood Count 4.35 X10*6/uL (4.20-5.50); Red Cell Distribution Width 15.3 % (11.0-16.0); White Blood Count 12.5 X10*3/uL (4.8-10.8)
[2021-04-04 05:54] LABS: Albumin Level 2.6 g/dL (3.5-5.0); Anion Gap 7 (12-20); Blood Urea Nitrogen 21 mg/dL (9-16); Calcium 9.2 mg/dL (8.4-10.2); Carbon Dioxide 34 mmol/L (22-29); Chloride 104 mmol/L (96-108); Creatinine Clr Calc Pharmacy 74.6; Estimated Glomerular Filt Rate > 60; Glucose Random 135 mg/dL (60-115); Phosphorus 3.2 mg/dL (2.7-4.5); Potassium 3.3 mmol/L (3.3-5.1); Sodium 142 mmol/L (135-145)
[2021-04-04] MEDS: Potassium Chloride Packet 20 MEQ PACKET 40 MEQ PO (06:41)
[2021-04-04] MEDS: Chlorhexidine Gluc Oral Rinse 15 ML MOUTHWASH BUCCAL ×3 (07:42→20:31)
[2021-04-04] MEDS: ARIPiprazole 5 MG TABLET PO (07:42)
[2021-04-04] MEDS: dexAMETHasone sod phosphate 4 MG/ML VIAL 5 MG IVPUSH (07:42)
[2021-04-04] MEDS: Enoxaparin Sodium 40 MG/0.4 ML SYRINGE SUBCUT (07:43)
[2021-04-04] MEDS: Insulin Glargine,Hum.rec.anlog 100 UNIT/ML 10 ML VIAL 20 UNIT SUBCUT (07:47)
[2021-04-04 07:53] LABS: VBG HCO3 29 mmol/L (22-26); VBG pCO2 35 mmHg; VBG pH 7.52 (7.32-7.43); VBG pO2 42 mmHg
[2021-04-04] MEDS: Albuterol/Iprat 2.5/0.5MG 3 ML AMPUL.NEB INHALE ×3 (08:15→19:51)
[2021-04-04 08:34] LABS: Venous Blood Gas Refer to POC result
[2021-04-04] MEDS: Rocuronium Bromide 50 MG/5 ML VIAL 40 MG IVPUSH (09:27)
--- NOTE | 2021-04-04 09:39 | MHC.CLN ---
F/U PT RECEIVING GLUCERNA AT MAX GOAL 50ML/HR WITH 30ML PROSOURCE X1/DAY AND 120CC WATER FLUSHES Q 4 HRS PROVIDES 1260KCALS (23KCALS/KG ON CMW), 65G TOTAL PROTEIN (1.2G/KG BASED ON CMW), 1743CC TOTAL WATER FROM FORMULA AND FLUSHES (31.7ML/KG) PT IS TOLERATING TF WITH LOW RESIDUALS NEW DTI R LATERAL HIP RECOMMEND ADDING AN ADDITIONAL 30ML PROSOURCE TO PROVIDE 60KCALS (1320KCALS TOTAL FROM FORMULA AND PROSOURCE), 15 G PROTEIN (80G PROTEIN TOTAL (1.5G/KG) CONTINUE TO MONITOR TOLERANCE, RESIDUALS AND LYTES
--- NOTE | 2021-04-04 11:19 | PC.NURSE ---
Addendum entered by Audra Morales RN 04/04/21 18:28: Patient remains sedated and intubated on resting AC settings, see flowsheet. Feeds at goal as well as OGT water flushes. Urine output excellent. Blood sugars covered with SC Humalog insulin per sliding scale. Daughter updated via telephone when she called in to the unit. Original Note: Patient on vent with propofol for sedation. Sedation vacation began at 0815. Patient placed on PSV at 0830. Very soon thereafter, patient's HR and BP elevated to 150, 179syst respectively. MD in to eval. Lung sounds with inspiratory rhonchi and exporatory wheezing. Very little suctioned inline. RT also at bedside. Albuterol neb given again with little effect. Patient in obvious distress with her increased work of breathing. Circuit assessed for resistance. MD obtained glidescope. Patient was extubated and immediately reintubated with 7.5 ETT, 25cm at LL after receiving 40 of Rocuronium. PCXR obtained, OGT preserved and remains in place. Propofol restarted and vent settings returned to AC 18, Vt [id number], and FiO2 60%, 8PEEP.
[2021-04-04 12:02] LABS: Glucose, Whole Blood 218 mg/dL (60-115)
[2021-04-04] MEDS: propofoL 1,000 MG/100 ML VIAL 22.45 MG IVCONT ×3 (13:38→20:31)
--- NOTE | 2021-04-04 14:59 | P.PNCC_ITS ---
Subjective Subjective Date of Service: 04/04/21 Interval History: 65-year-old female with severe COVID-19 pneumonitis and ARDS with hypoxemic respiratory failure and nearly a week intubated and she was on an FiO2 of 40% did very well for several hours of pressure support yesterday and again in attempting at this morning all of a sudden she became dramatically tachypneic rate in the high 40s with acute hypertension and and sinus tachycardia to nearly to 150 clearly in distress of very stridorous inspiratory and expiratory sounds acutely with dramatic negative and positive intrapleural fluctuation looked like she was definitely breathing against an obstruction in the system nothing externally was noted especially in the H and E and and made a decision especially with peak airway pressures exceeding 50 that I was going to extubate and reintubate utilizing propofol sedation and 40 mg of rocuronium and glide scope guidance remove the old tube which clearly was and obstructed with a very lengthy concretions of sputum and it so clearly she was ball valving and was was about to develop barotrauma which we avoided free intubated very easily with good visualization of the vocal cords with a 7.5 ET tube again at 25 cm at the lip at and chest x-ray shows good tube position good NG tube position no barotrauma uncomplicated Critical Care Time (minutes): 60 Physical Exam Vital Signs: Vital Signs: Last Vital Signs Temp 100.9 F H 04/04/21 14:00 Pulse 83 04/04/21 14:00 Resp 20 04/04/21 14:00 BP 157/72 H 04/04/21 14:00 Pulse Ox 98 04/04/21 14:00 Body Mass Index 32.2 Sedated and intubated and nonfocal neurologically Horrible a honking in stridorous inspiratory and expiratory sounds which to me indicated probable obstruction of the tube Cardiac exam with sinus tachycardia markedly increased CVP reflecting acute right heart dysfunction but good bilateral carotid upstrokes Objective Data Labs CBC & Chem 7: 04/04/21 05:25 04/04/21 05:25 Labs: Laboratory Results - last 24 hr 04/03/21 04/03/21 04/04/21 18:27 23:45 05:06 WBC RBC Hgb Hct MCV MCH MCHC RDW Plt Count MPV Immature Gran % (Auto) Neut % (Auto) Lymph % (Auto) [place] % (Auto) Eos % (Auto) Baso % (Auto) Lymph # (Auto) [place] # (Auto) Eos # (Auto) Baso # (Auto) Abs Immat Gran (auto) Absolute Neuts (auto) Absolute Nucleated RBC Nucleated RBC % (auto) VBG pH VBG pCO2 VBG pO2 VBG HCO3 VBG O2 Saturation VBG Base Excess Sodium Potassium Chloride Carbon Dioxide Anion Gap BUN Creatinine Estim Creat Clear Calc Estimated GFR POC Glucose 323 H 207 H 136 H Random Glucose Calcium Phosphorus Magnesium Albumin 04/04/21 04/04/21 04/04/21 05:25 05:25 05:25 WBC 12.5 H RBC 4.35 Hgb 10.8 L Hct 34.9 L MCV 80.2 MCH 24.8 L MCHC 30.9 L RDW 15.3 Plt Count 261 MPV 12.5 H Immature Gran % (Auto) 0.6 H Neut % (Auto) 70.0 Lymph % (Auto) 21.9 [place] % (Auto) 6.7 Eos % (Auto) 0.7 Baso % (Auto) 0.1 Lymph # (Auto) 2.7 [place] # (Auto) 0.8 Eos # (Auto) 0.1 Baso # (Auto) 0.0 Abs Immat Gran (auto) 0.07 H Absolute Neuts (auto) 8.7 H Absolute Nucleated RBC 0.000 Nucleated RBC % (auto) 0.0 VBG pH VBG pCO2 VBG pO2 VBG HCO3 VBG O2 Saturation VBG Base Excess Sodium 142 Potassium 3.3 Chloride 104 Carbon Dioxide 34 H Anion Gap 7 L BUN 21 H Creatinine 0.67 Estim Creat Clear Calc 74.6 Estimated GFR > 60 POC Glucose Random Glucose 135 H Calcium 9.2 D Phosphorus 3.2 Magnesium 2.0 Albumin Cancelled 2.6 L 04/04/21 04/04/21 05:26 11:56 WBC RBC Hgb Hct MCV MCH MCHC RDW Plt Count MPV Immature Gran % (Auto) Neut % (Auto) Lymph % (Auto) [place] % (Auto) Eos % (Auto) Baso % (Auto) Lymph # (Auto) [place] # (Auto) Eos # (Auto) Baso # (Auto) Abs Immat Gran (auto) Absolute Neuts (auto) Absolute Nucleated RBC Nucleated RBC % (auto) VBG pH 7.52 H VBG pCO2 35 VBG pO2 42 VBG HCO3 29 H VBG O2 Saturation 71.0 VBG Base Excess 7.0 Sodium Potassium Chloride Carbon Dioxide Anion Gap BUN Creatinine Estim Creat Clear Calc Estimated GFR POC Glucose 218 H Random Glucose Calcium Phosphorus Magnesium Albumin Microbiology Microbiology Results: Microbiology 04/01/21 14:28 Sputum - Suctioned Gram Stain - Final 04/01/21 14:28 Sputum - Suctioned Sputum Culture - Preliminary Yeast 03/26/21 16:43 Blood - Venous Blood Culture - Final No growth after 5 days. 03/27/21 Unknown Urine Catheterized - Rashid Catheter Urine Culture - Final Escherichia coli 03/26/21 16:43 Blood - Venous Blood Culture - Final Escherichia coli Quality Stroke Does the patient have a stroke diagnosis?: No VTE Prior VTE?: No VTE Risk Level:: Medical - moderate - high VTE Device Contraindication: Treatment Not Indicated VTE Drug Contraindication: N/A - Med Ordered Progress Note: A&P Assessment and plan (1) Hypernatremia: Status: Acute (2) CVA (cerebral vascular accident): Status: Acute (3) Acute respiratory failure with hypoxemia: Status: Acute (4) Diastolic dysfunction: Status: Acute (5) Acute respiratory distress syndrome (ARDS) due to COVID-19 virus: Status: Acute (6) Encephalopathy: Status: Acute (7) UTI (urinary tract infection): Status: Acute (8) Bacteremia: Status: Acute (9) Lactic acid acidosis: Status: Acute (10) Pneumonia due to COVID-19 virus: Status: Acute (11) Acute kidney injury: Status: Acute (12) Respiratory failure with hypoxia: Status: Acute (13) Type 2 diabetes mellitus with unspecified complications: Status: Acute (14) Essential hypertension: Status: Acute (15) Atherosclerotic cardiovascular disease: Status: Acute (16) Non-toxic multinodular goiter: Status: Acute (17) Diabetic polyneuropathy associated with type 2 diabetes mellitus: Status: Acute (18) COPD (chronic obstructive pulmonary disease): Status: Acute (19) Obese: Status: Acute (20) Dyslipidemia: Status: Acute Assessment and Plan: Post re-intubation as expected there was definitely an element of pulmonary edema due to the extreme negative intrapleural pressure and we are able to wean her FiO2 from 100-50% and we will rest her overnight and then attempt again to extubate in the morning
[2021-04-04 18:23] LABS: Glucose, Whole Blood 402 mg/dL (60-115)
[2021-04-05] VITALS (30 sets, daily range): BP systolic 101–197; BP diastolic 56–87; PULSE 71–117; RESP 17–30; TEMP 37.4–38.5; O2SAT 88–99
[2021-04-05] MEDS: Insulin Lispro 100 UNIT/ML 3 ML VIAL SUBCUT ×5 (00:26→23:55)
[2021-04-05] MEDS: propofoL 1,000 MG/100 ML VIAL 17.96 MG IVCONT (00:26)
[2021-04-05] MEDS: 0.9 % Sodium Chloride Flush 3 ML SYRINGE IVFLUSH ×4 (00:35→23:51)
[2021-04-05 03:22] LABS: Glucose, Whole Blood 256 mg/dL (60-115)
[2021-04-05 04:54] LABS: VBG Base Excess 8.9 mmol/L; VBG HCO3 32 mmol/L (22-26); VBG pCO2 40 mmHg; VBG pO2 46 mmHg
[2021-04-05 04:54] LABS: Venous Blood Gas Refer to POC result
[2021-04-05 05:00] LABS: MANUAL DIFF FLAG NO
--- NOTE | 2021-04-05 05:07 | PC.NURSE ---
Tmax 101.3 via core. NSR on tele, HR 80s. BP WNL. Pt sedated on propofol, titrated down as tolerated. Arousable to noxious stimuli, does not open eyes or follow commands. ETT #7.5, 25 cm at lip. Moderate/large amount of thick cream secretions via inline. +C/G. Vent settings- AC 18/450/8/30%, FiO2 titrated down, SpO2 > 92%. Glucerna tube feeds running at max of 50 ml/hr, GRV [address], UOP 50 ml/hr. Skin intact, buttocks red but blanchable. On prevalon mattress system.
[2021-04-05 05:08] LABS: Basophils Percent Auto 0.1 % (0-2); Eosinophils Absolute Auto 0.1 X10*3/uL (0.0-0.4); Eosinophils Percent Auto 0.5 % (0-4); Hemoglobin 11.1 g/dl (12.0-16.0); Imm Gran Abs Auto 0.06 X10*3/uL (0.00-0.03); Imm Gran Pct Auto 0.5 % (0.0-0.4); Lymphocytes Absolute Auto 2.6 X10*3/uL (1.2-4.9); Lymphocytes Percent Auto 20.5 % (20-40); Mean Corpuscular HGB Conc 30.8 g/dl (31.0-35.0); Mean Corpuscular Volume 81.1 fL (80-98); Mean Platelet Volume 12.8 fL (9.4-12.3); Monocytes Absolute Auto 0.8 X10*3/uL (0.1-1.2); Monocytes Percent Auto 6.3 % (2-11); Neutrophils Absolute Auto 9.2 X10*3/uL (2.0-8.3); Neutrophils Percent Auto 72.1 % (45-73); Platelet Count 290 X10*3/uL (160-400); Red Blood Count 4.44 X10*6/uL (4.20-5.50); Red Cell Distribution Width 15.4 % (11.0-16.0); White Blood Count 12.7 X10*3/uL (4.8-10.8)
[2021-04-05 05:11] LABS: Albumin Level 2.7 g/dL (3.5-5.0)
[2021-04-05 05:20] LABS: Anion Gap 12 (12-20); Blood Urea Nitrogen 26 mg/dL (9-16); Calcium 9.4 mg/dL (8.4-10.2); Carbon Dioxide 30 mmol/L (22-29); Chloride 103 mmol/L (96-108); Creatinine Clr Calc Pharmacy 64.9; Estimated Glomerular Filt Rate > 60; Glucose Random 197 mg/dL (60-115); Magnesium 2.1 mg/dL (1.6-2.6); Phosphorus 3.6 mg/dL (2.7-4.5); Potassium 3.7 mmol/L (3.3-5.1); Sodium 141 mmol/L (135-145)
[2021-04-05] MEDS: propofoL 1,000 MG/100 ML VIAL 15.72 MG IVCONT (05:34)
[2021-04-05 06:15] LABS: Glucose, Whole Blood 186 mg/dL (60-115)
[2021-04-05] MEDS: Enoxaparin Sodium 40 MG/0.4 ML SYRINGE SUBCUT (07:39)
[2021-04-05] MEDS: dexAMETHasone sod phosphate 4 MG/ML VIAL 5 MG IVPUSH (07:39)
[2021-04-05] MEDS: Chlorhexidine Gluc Oral Rinse 15 ML MOUTHWASH BUCCAL ×3 (07:39→20:52)
[2021-04-05] MEDS: Insulin Glargine,Hum.rec.anlog 100 UNIT/ML 10 ML VIAL 20 UNIT SUBCUT (07:40)
[2021-04-05] MEDS: ARIPiprazole 5 MG TABLET PO (07:40)
[2021-04-05] MEDS: vancomycin HCL 1,250 MG in 0.9 % Sodium Chloride 250 ML 166.67 MG IV (07:40)
[2021-04-05] MEDS: cefEPime HCl 2 GM in 0.9 % Sodium Chloride 50 ML IV (07:41)
[2021-04-05] MEDS: Albuterol/Iprat 2.5/0.5MG 3 ML AMPUL.NEB INHALE ×3 (08:48→20:12)
[2021-04-05] MEDS: Caspofungin Acetate 70 MG in 0.9 % Sodium Chloride 250 ML 250 MG IV (09:20)
[2021-04-05] MEDS: propofoL 1,000 MG/100 ML VIAL 13.47 MG IVCONT ×3 (09:21→23:56)
[2021-04-05 11:25] LABS: Glucose, Whole Blood 239 mg/dL (60-115)
--- NOTE | 2021-04-05 14:56 | MHC.CM.PN ---
pt lives c his sister in her home. he is a very recent readmit who had gone home s any services. this admission patient has a pleurex catheter and may be going home c it . if this is the case he may benefit from having [facility] svcs. for this reason a ref. has been made to [facility] for nsg. if the pleurex catheter is dc'd then the vna agency should not be necessary. patient sister will transport at dc. dc plan at this time is dc home c vna for pleurex catheter. cm to cont. to follow.
--- NOTE | 2021-04-05 15:01 | MHC.CM.PN ---
pt remains in icu; intubated, sedated on mech. ventilator. dc plan is uncertain at this time - deferred to a future date. cm to cont. to follow.
--- NOTE | 2021-04-05 15:23 | P.PCNCC_ITS ---
Procedures Date of Service Date of Service: 04/05/21 Intubation Intubation Comments: On 04/04 patient suddenly became markedly distressed with acute hypertension and severe tachycardia and extreme increase in respiratory rate and respiratory effort with very significant negative intrapleural pressure for inspiration and marked diaphragmatic effort for expiration we could see the extremes of intrapleural pressure on the CVP There was definitely a stridorous noise coming through the endotracheal tube when detached from the ventilator with marked air trapping and a I surmised that there was an obstructed endotracheal tube even though we could easily suction th rough i.e. then sedated her and extubated and there was a long area of concretions in that endotracheal tube clearly ball valving and that was discarded and then utilizing the glide scope by reintubated with a 7.5 ET tube with excellent visualization of the vocal cords and no complication with dramatic improvement but the patient did have some pulmonary edema both clinically and by chest x-ray and that required a prolonged wean of the FiO2 from 100 down to 50% and overnight she came down to 30% and we let her rest quietly Consent for Procedure: Emergent-no informed consent obtained Time out performed: Yes Sedative: propofol Paralytic: rocuronium Laryngoscope: fiber optic video scope ET tube size: 7.5 Tube secured depth (cm): 25 Tube placement confirmation: visualized tube passing through cords, equal breath sounds bilaterally, no breath sounds over epigastrium and confirmation by capnometry Patient tolerated procedure: well and no complications Intubation complications: none
--- NOTE | 2021-04-05 15:27 | P.PNCC_ITS ---
Subjective Subjective Date of Service: 04/05/21 Interval History: 65-year-old female with COVID-19 pneumonitis and ARDS with hypoxemic respiratory failure and still intubated and we we had a successful pressure support trial but consistent tidal volumes only 375 cc on the average with about a 10 L to 11 L minutes ventilatory requirement and FiO2 of 30% she tolerated almost the entire day but still these are in adequate tidal volumes and her respiratory rates would be about 30 him and therefore not quite ready in for extubation at this point so we will recent date and replace on assist control Surveillance cultures of sputum and blood for low-grade temperature are out and pending Critical Care Time (minutes): 45 Physical Exam Vital Signs: Vital Signs: Last Vital Signs Temp 99.5 F 04/05/21 13:00 Pulse 100 04/05/21 15:10 Resp 25 H 04/05/21 13:00 BP 172/81 H 04/05/21 13:00 Pulse Ox 94 04/05/21 13:00 Body Mass Index 32.2 Good cognitive function Nonfocal neurologically Cardiac function is normal by bedside echo with no effusion no primary valve disease Chest without adventitious sounds no accessory muscle or diaphragmatic use Abdomen benign Skin intact Objective Data Labs CBC & Chem 7: 04/05/21 05:00 04/05/21 06:00 Labs: Laboratory Results - last 24 hr 04/04/21 04/05/21 04/05/21 18:17 00:22 04:45 WBC RBC Hgb Hct MCV MCH MCHC RDW Plt Count MPV Immature Gran % (Auto) Neut % (Auto) Lymph % (Auto) [place] % (Auto) Eos % (Auto) Baso % (Auto) Lymph # (Auto) [place] # (Auto) Eos # (Auto) Baso # (Auto) Abs Immat Gran (auto) Absolute Neuts (auto) Absolute Nucleated RBC Nucleated RBC % (auto) VBG pH 7.50 H VBG pCO2 40 VBG pO2 46 VBG HCO3 32 H VBG O2 Saturation 78.0 VBG Base Excess 8.9 Sodium Potassium Chloride Carbon Dioxide Anion Gap BUN Creatinine Estim Creat Clear Calc Estimated GFR POC Glucose 402 H* 256 H Random Glucose Calcium Phosphorus Magnesium Albumin Procalcitonin 04/05/21 04/05/21 04/05/21 05:00 05:00 05:38 WBC 12.7 H RBC 4.44 Hgb 11.1 L Hct 36.0 L MCV 81.1 MCH 25.0 L MCHC 30.8 L RDW 15.4 Plt Count 290 MPV 12.8 H Immature Gran % (Auto) 0.5 H Neut % (Auto) 72.1 Lymph % (Auto) 20.5 [place] % (Auto) 6.3 Eos % (Auto) 0.5 Baso % (Auto) 0.1 Lymph # (Auto) 2.6 [place] # (Auto) 0.8 Eos # (Auto) 0.1 Baso # (Auto) 0.0 Abs Immat Gran (auto) 0.06 H Absolute Neuts (auto) 9.2 H Absolute Nucleated RBC 0.000 Nucleated RBC % (auto) 0.0 VBG pH VBG pCO2 VBG pO2 VBG HCO3 VBG O2 Saturation VBG Base Excess Sodium Potassium Chloride Carbon Dioxide Anion Gap BUN Creatinine Estim Creat Clear Calc Estimated GFR POC Glucose 186 H Random Glucose Calcium Phosphorus Magnesium Albumin 2.7 L Procalcitonin 04/05/21 04/05/21 04/05/21 06:00 07:25 11:04 WBC RBC Hgb Hct MCV MCH MCHC RDW Plt Count MPV Immature Gran % (Auto) Neut % (Auto) Lymph % (Auto) [place] % (Auto) Eos % (Auto) Baso % (Auto) Lymph # (Auto) [place] # (Auto) Eos # (Auto) Baso # (Auto) Abs Immat Gran (auto) Absolute Neuts (auto) Absolute Nucleated RBC Nucleated RBC % (auto) VBG pH VBG pCO2 VBG pO2 VBG HCO3 VBG O2 Saturation VBG Base Excess Sodium 141 Potassium 3.7 Chloride 103 Carbon Dioxide 30 H Anion Gap 12 BUN 26 H Creatinine 0.77 Estim Creat Clear Calc 64.9 Estimated GFR > 60 POC Glucose 239 H Random Glucose 197 H Calcium 9.4 Phosphorus 3.6 Magnesium 2.1 Albumin Procalcitonin 0.10 Microbiology Microbiology Results: Microbiology 04/05/21 08:42 Sputum - Suctioned Gram Stain - Final 04/01/21 14:28 Sputum - Suctioned Gram Stain - Final 04/01/21 14:28 Sputum - Suctioned Sputum Culture - Final Preethi albicans 03/26/21 16:43 Blood - Venous Blood Culture - Final No growth after 5 days. 03/27/21 Unknown Urine Catheterized - Rashid Catheter Urine Culture - Final Escherichia coli 03/26/21 16:43 Blood - Venous Blood Culture - Final Escherichia coli Quality Stroke Does the patient have a stroke diagnosis?: No VTE Prior VTE?: No VTE Risk Level:: Medical - moderate - high VTE Device Contraindication: Treatment Not Indicated VTE Drug Contraindication: N/A - Med Ordered Progress Note: A&P Assessment and plan (1) Hypernatremia: Status: Acute (2) CVA (cerebral vascular accident): Status: Acute (3) Acute respiratory failure with hypoxemia: Status: Acute (4) Diastolic dysfunction: Status: Acute (5) Acute respiratory distress syndrome (ARDS) due to COVID-19 virus: Status: Acute (6) Encephalopathy: Status: Acute (7) UTI (urinary tract infection): Status: Acute (8) Bacteremia: Status: Acute (9) Lactic acid acidosis: Status: Acute (10) Pneumonia due to COVID-19 virus: Status: Acute (11) Acute hyperglycemia: Status: Acute (12) Acute kidney injury: Status: Acute (13) Respiratory failure with hypoxia: Status: Acute (14) Type 2 diabetes mellitus with unspecified complications: Status: Acute (15) Essential hypertension: Status: Acute (16) Atherosclerotic cardiovascular disease: Status: Acute (17) Non-toxic multinodular goiter: Status: Acute (18) Diabetic polyneuropathy associated with type 2 diabetes mellitus: Status: Acute (19) COPD (chronic obstructive pulmonary disease): Status: Acute (20) Obese: Status: Acute (21) Dyslipidemia: Status: Acute (22) HTN (hypertension): Status: Acute Assessment and Plan: So he is being replaced on assist control and recent dated for rest tonight and another attempt tomorrow at sedation holiday and pressure support weaning trial
[2021-04-05 15:45] LABS: Glucose, Whole Blood 279 mg/dL (60-115)
[2021-04-05 17:52] LABS: Glucose, Whole Blood 320 mg/dL (60-115)
--- NOTE | 2021-04-05 18:41 | PC.NURSE ---
Around 08:00 sedation vacation from Propofol initiated. 08:45 patient placed on PS 24/8 and 30% by RT. Patient drowsy but able to follow simple commands. HR 117, BP 197/87 and RR 37. Patient placed back on AC vent settings: Rate 18, vol 450, peep 8, 30% fio2. Per MD Propofol remained off. Around 11:50 patient placed back on above PS settings and tolerated well. Patient more wakeful following commands and nodding head to yes/no questions. Per MD patient re-sedated and placed back on AC settings as above.
--- NOTE | 2021-04-05 21:22 | P.CNID_ITS ---
History of Present Illness Data of Consult Service Date: 04/05/21 Requesting physician: Alecia Birmingham Primary Care Provider: Anali Negron MD HPI Reason for consult: possible superinfection COVID She presents to hospital on 03/26 with shortness of breath not like usual COPD and found to have COVID. She had received vaccination. She was started on Dexamethasone. She also had worsening respiratory status and was given Baricitinib and remains on it. She also had Ecoli bacteremia from UTI and was given Ceftriaxone. She had overnight decompensation and sputum production with ball valve effect on ET tube. There was concern over emerging sepsis and patient was given Cefepime,Vanco mycin,Caspofungin Blood cultures were drawn and pending She received one dose of antibiotics as above and is not on antibiotics at this time. 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 Sister No problems noted. Son No problems noted. Daughter No problems noted. Family history: reviewed and not pertinent Surgical History Surgical History H/O colonoscopy History of PTCA Hx of appendectomy Hx of cataract extraction Hx of section Hx of cholecystectomy Hx of heart artery stent Social History Social History Household Members: Family Housing: House Do you presently have visiting nurse or other home services: No Alcohol intake: current Alcohol intake frequency: holidays/special occasions only Patient Tobacco Use Status: Former Tobacco user Cigarette Packs Per Day: 1 Cigarettes Per Day: 20.0 Years Smoked: 30 Smoked in Last 30 Days: No Use of substances other than those prescribed or required for medical reasons: No Currently Displaying Signs/Symptoms of Drug Intoxication Withdrawal: No Spiritual Healthcare Practices: Yazidism Advance Directives: No Advance Directives Information Provided: Yes Do you have thoughts of harming others: None Do you have a plan to hurt others: No Plan Recently lost weight without trying: No Nutrition Risks: No Nutritional Risk Patient : No : No Poor oral hygiene: No service: No Current occupational status: disabled Meds Allergies Allergy/AdvReac Type Severity Reaction Status Date / Time morphine [MORPHINE] Allergy Severe HIVES AND Verified 03/12/21 13:09 DIFFICULTY BREATHING, dyspnea, rash Penicillins Allergy Intermediate ITCHING Verified 03/12/21 13:09 Active Medications: Current Medications Acetaminophen (Acetaminophen Supp 650 Mg Supp.Rect) 650 mg GA Q6H PRN PRN Reason: Pain, Mild (Pain Scale 1-3) Albuterol/Ipratropium (Albuterol/Iprat 2.5/0.5mg 3 Ml Ampul.Neb) 3 ml INHALE RQ6H WHILE AWAKE [facility] Last Admin: 04/05/21 20:12 Dose: 3 ml Documented by: Aripiprazole (Aripiprazole 5 Mg Tablet) 5 mg PO DAILY [facility] Last Admin: 04/05/21 07:40 Dose: 5 mg Documented by: Baricitinib (Baricitinib 2 Mg Tablet) 2 mg PO DAILY [facility] Last Admin: 04/05/21 07:40 Dose: 2 mg Documented by: Chlorhexidine Gluconate (Chlorhexidine Gluc Oral Rinse 15 Ml Mouthwash) 15 ml BUCCAL TID [facility] Last Admin: 04/05/21 20:52 Dose: 15 ml Documented by: Dexamethasone Sodium Phosphate (Dexamethasone Sod Phosphate 4 Mg/Ml Vial) 5 mg IVPUSH DAILY [facility] Last Admin: 04/05/21 07:39 Dose: 5 mg Documented by: Dextrose (Dextrose 50 % 25 Gm/50 Ml Vial) 25 gm IVPUSH Q15M PRN; Protocol PRN Reason: per Hypoglycemia Standing Ord. Enoxaparin Sodium (Enoxaparin Sodium 40 Mg/0.4 Ml Syringe) 40 mg SUBCUT DAILY [facility] Last Admin: 04/05/21 07:39 Dose: 40 mg Documented by: Glucose (Glucose Gel 15 Gm Gel..Gram.) 15 gm PO Q15M PRN; Protocol PRN Reason: per Hypoglycemia Standing Ord. Propofol (Diprivan) 1,000 mg in 100 mls @ 0 mls/hr IVCONT .Q0M [facility]; Protocol Last Admin: 04/05/21 20:52 Dose: 30 mcg/kg/min, 13.47 mls/hr Documented by: Insulin Glargine (Insulin Glargine,Hum.Rec.Anlog 100 Unit/Ml 10 Ml Vial) 20 unit SUBCUT DAILY [facility] Last Admin: 04/05/21 07:40 Dose: 20 unit Documented by: Insulin Human Lispro (Insulin Lispro 100 Unit/Ml 3 Ml Vial) 0 unit SUBCUT Q6H [facility]; Protocol Last Admin: 04/05/21 18:10 Dose: 8 unit Documented by: Naloxone HCl (Naloxone Hcl 0.4 Mg/Ml Vial) 0.2 mg IVPUSH Q2M PRN PRN Reason: Excessive sedation or RR < 8 Pharmacy Consult (Consult Rx Perform Med Rec) 1 each MISCELLANE ONCE PRN PRN Reason: Consult order Pharmacy Consult (Consult Rx Vancomycin Dosing) 1 each MISCELLANE DAILY PRN PRN Reason: Consult order Sodium Chloride (0.9 % Sodium Chloride Flush 3 Ml Syringe) 3 ml IVFLUSH QSHIFT [facility] Last Admin: 04/05/21 15:27 Dose: 3 ml Documented by: Home Medications Medication Instructions Recorded Confirmed Last Taken Type aripiprazole 5 mg tablet 5 mg PO DAILY 05/07/20 03/26/21 Unknown History docusate sodium 100 mg capsule 100 mg PO BID 05/07/20 03/26/21 Unknown History sennosides 8.6 mg tablet (senna) 8.6 mg PO BEDTIME 05/07/20 03/26/21 Unknown History lisinopril 5 mg tablet 5 mg PO DAILY 10/24/20 03/26/21 Unknown History acetaminophen 325 mg tablet 650 mg PO Q6H PRN 03/26/21 03/26/21 Unknown History aspirin 81 mg tablet,delayed 1 tab PO DAILY 04/02/21 04/02/21 Unknown History release Physical Exam Vital Signs: Vital Signs: Last Vital Signs Temp 99.9 F 04/05/21 20:54 Pulse 97 04/05/21 20:54 Resp 17 04/05/21 20:54 BP 126/59 L 04/05/21 20:54 Pulse Ox 95 04/05/21 20:54 Body Mass Index 32.2 Const: General: cooperative HENMT: Head: Yes normal to inspection Mouth: lip normal Eyes: General: appearance normal, both eyes and all related structures Resp: Effort & Inspection: normal respiratory effort Cardio: Rate: regular rate Rhythm: regular rhythm GI: Palpation (GI): Soft to palpation and nontender Skin: General skin exam: no rashes or lesions noted Neuro: General: no focal motor deficits Results Labs CBC & Chem 7: 04/05/21 05:00 04/05/21 06:00 Labs: Short CBC 04/05/21 Range/Units 05:00 WBC 12.7 H (4.8-10.8) X10*3/uL Hgb 11.1 L (12.0-16.0) g/dl Hct 36.0 L (37-47) % Plt Count 290 (160-400) X10*3/uL BMP 04/05/21 06:00 Sodium 141 Potassium 3.7 Chloride 103 Carbon Dioxide 30 H BUN 26 H Creatinine 0.77 Calcium 9.4 Liver Function 04/05/21 Range/Units 05:00 Albumin 2.7 L (3.5-5.0) g/dL Microbiology Microbiology Results: Microbiology 04/05/21 08:42 Sputum - Suctioned Gram Stain - Final 04/01/21 14:28 Sputum - Suctioned Gram Stain - Final 04/01/21 14:28 Sputum - Suctioned Sputum Culture - Final Preethi albicans 03/26/21 16:43 Blood - Venous Blood Culture - Final No growth after 5 days. 03/27/21 Unknown Urine Catheterized - Rashid Catheter Urine Culture - Final Escherichia coli 03/26/21 16:43 Blood - Venous Blood Culture - Final Escherichia coli Assessment and Plan (1) Acute respiratory failure with hypoxemia: Status: Acute patient with COVID She has lung damage There was E coli bacteremia from UTI She has concern over resistant lung organisms,but no specific signs Suggest Would follow cultures No further antibiotics at this time unless cultures indicate otherwise (2) Acute respiratory distress syndrome (ARDS) due to COVID-19 virus: Status: Acute (3) Encephalopathy: Status: Acute (4) UTI (urinary tract infection): Status: Acute
[2021-04-05 23:48] LABS: Glucose, Whole Blood 193 mg/dL (60-115)
[2021-04-06] VITALS (31 sets, daily range): BP systolic 87–178; BP diastolic 44–81; PULSE 58–107; RESP 18–29; TEMP 37–38; O2SAT 90–97
[2021-04-06] MEDS: propofoL 1,000 MG/100 ML VIAL 22.45 MG IVCONT (04:29)
[2021-04-06 05:14] LABS: MANUAL DIFF FLAG NO
[2021-04-06 05:16] LABS: Basophils Percent Auto 0.1 % (0-2); Eosinophils Absolute Auto 0.1 X10*3/uL (0.0-0.4); Eosinophils Percent Auto 0.7 % (0-4); Hematocrit 33.8 % (37-47); Hemoglobin 10.6 g/dl (12.0-16.0); Imm Gran Abs Auto 0.06 X10*3/uL (0.00-0.03); Imm Gran Pct Auto 0.5 % (0.0-0.4); Lymphocytes Absolute Auto 2.9 X10*3/uL (1.2-4.9); Lymphocytes Percent Auto 24.4 % (20-40); Mean Corpuscular HGB Conc 31.4 g/dl (31.0-35.0); Mean Corpuscular Hemoglobin 25.5 pg (27.0-33.0); Mean Corpuscular Volume 81.3 fL (80-98); Monocytes Absolute Auto 0.7 X10*3/uL (0.1-1.2); Monocytes Percent Auto 6.1 % (2-11); Neutrophils Absolute Auto 8.2 X10*3/uL (2.0-8.3); Neutrophils Percent Auto 68.2 % (45-73); Platelet Count 282 X10*3/uL (160-400); Red Blood Count 4.16 X10*6/uL (4.20-5.50); Red Cell Distribution Width 15.7 % (11.0-16.0)
[2021-04-06 05:22] LABS: VBG Base Excess 10.5 mmol/L; VBG HCO3 34 mmol/L (22-26); VBG pCO2 43 mmHg; VBG pO2 43 mmHg
[2021-04-06 05:32] LABS: Albumin Level 2.6 g/dL (3.5-5.0); Anion Gap 11 (12-20); Blood Urea Nitrogen 26 mg/dL (9-16); Calcium 9.2 mg/dL (8.4-10.2); Carbon Dioxide 32 mmol/L (22-29); Chloride 102 mmol/L (96-108); Creatinine Clr Calc Pharmacy 67.5; Estimated Glomerular Filt Rate > 60; Glucose Random 165 mg/dL (60-115); Phosphorus 3.9 mg/dL (2.7-4.5); Potassium 3.6 mmol/L (3.3-5.1); Sodium 141 mmol/L (135-145)
[2021-04-06] MEDS: Insulin Lispro 100 UNIT/ML 3 ML VIAL SUBCUT ×3 (05:55→18:23)
[2021-04-06 06:41] LABS: Venous Blood Gas Refer to POC result
[2021-04-06] MEDS: Enoxaparin Sodium 40 MG/0.4 ML SYRINGE SUBCUT (07:13)
[2021-04-06] MEDS: Chlorhexidine Gluc Oral Rinse 15 ML MOUTHWASH BUCCAL ×3 (07:13→21:24)
[2021-04-06] MEDS: 0.9 % Sodium Chloride Flush 3 ML SYRINGE IVFLUSH ×2 (07:13→15:20)
[2021-04-06] MEDS: Insulin Glargine,Hum.rec.anlog 100 UNIT/ML 10 ML VIAL 20 UNIT SUBCUT (07:13)
[2021-04-06] MEDS: dexAMETHasone sod phosphate 4 MG/ML VIAL 5 MG IVPUSH (07:14)
[2021-04-06] MEDS: ARIPiprazole 5 MG TABLET PO (07:14)
[2021-04-06] MEDS: Albuterol/Iprat 2.5/0.5MG 3 ML AMPUL.NEB INHALE ×2 (08:29→21:12)
[2021-04-06 11:18] LABS: Glucose, Whole Blood 306 mg/dL (60-115)
[2021-04-06] MEDS: propofoL 1,000 MG/100 ML VIAL 13.47 MG IVCONT (12:16)
[2021-04-06] MEDS: Caspofungin Acetate 50 MG in 0.9 % Sodium Chloride 250 ML 250 MG IV (12:16)
[2021-04-06] MEDS: vancomycin HCL 750 MG in 0.9 % Sodium Chloride 250 ML 265 MG IV ×2 (12:16→23:22)
--- NOTE | 2021-04-06 14:10 | P.PNCC_ITS ---
Subjective Subjective Date of Service: 04/06/21 Interval History: 65-year-old female who had been vaccinated but developed COVID-19 pneumonitis in ARDS with hypoxemic respiratory failure and became encephalopathic and required intubation and we been doing daily sedation holidays she wakes up with good cognitive function following commands no signs of delirium but over the last day or 2 since the incident with the occluded ET tube she has had some increasing difficulty sustaining the pressure support trial today's tidal volumes are only 350 and a began to fall she was tachypneic from the beginning and lasted close to 2 hours a so at before the respiratory rate went up into the 40s and was recent dated placed back on assist control for rest and we noted that there was a slightly greater left shift on her white count as well as what looked like and it a new left lower lobe infiltrate 2 sputums over 3 days growing Preethi and the last sputum from yesterday also Gram-positive cocci so I eliminated gram-negative coverage gave her vancomycin and caspofungin But she still remains on an FiO2 of 30-35% minutes ventilatory requirements her a around 11 liters/minute oxygen saturation 95% and no accessory muscle use Critical Care Time (minutes): 45 Physical Exam Vital Signs: Vital Signs: Last Vital Signs Temp 99.5 F 04/06/21 13:00 Pulse 78 04/06/21 13:00 Resp 19 04/06/21 13:00 BP 140/65 H 04/06/21 13:00 Pulse Ox 94 04/06/21 13:00 Body Mass Index 32.2 Good cognitive function Nonfocal neurologic Bedside echo with class 1 LV function Abdomen benign and tolerating feedings soft with no organomegaly Chest without adventitious sounds Skin intact Objective Data Labs CBC & Chem 7: 04/06/21 05:00 04/06/21 05:00 Labs: Laboratory Results - last 24 hr 04/05/21 04/05/21 04/05/21 15:33 17:33 23:23 WBC RBC Hgb Hct MCV MCH MCHC RDW Plt Count MPV Immature Gran % (Auto) Neut % (Auto) Lymph % (Auto) [place] % (Auto) Eos % (Auto) Baso % (Auto) Lymph # (Auto) [place] # (Auto) Eos # (Auto) Baso # (Auto) Abs Immat Gran (auto) Absolute Neuts (auto) Absolute Nucleated RBC Nucleated RBC % (auto) VBG pH VBG pCO2 VBG pO2 VBG HCO3 VBG O2 Saturation VBG Base Excess Sodium Potassium Chloride Carbon Dioxide Anion Gap BUN Creatinine Estim Creat Clear Calc Estimated GFR POC Glucose 279 H 320 H 193 H Random Glucose Calcium Phosphorus Magnesium Albumin 04/06/21 04/06/21 04/06/21 05:00 05:00 05:16 WBC 12.0 H RBC 4.16 L Hgb 10.6 L Hct 33.8 L MCV 81.3 MCH 25.5 L MCHC 31.4 RDW 15.7 Plt Count 282 MPV 12.0 Immature Gran % (Auto) 0.5 H Neut % (Auto) 68.2 Lymph % (Auto) 24.4 [place] % (Auto) 6.1 Eos % (Auto) 0.7 Baso % (Auto) 0.1 Lymph # (Auto) 2.9 [place] # (Auto) 0.7 Eos # (Auto) 0.1 Baso # (Auto) 0.0 Abs Immat Gran (auto) 0.06 H Absolute Neuts (auto) 8.2 Absolute Nucleated RBC 0.000 Nucleated RBC % (auto) 0.0 VBG pH 7.50 H VBG pCO2 43 VBG pO2 43 VBG HCO3 34 H VBG O2 Saturation 73.0 VBG Base Excess 10.5 Sodium 141 Potassium 3.6 Chloride 102 Carbon Dioxide 32 H Anion Gap 11 L BUN 26 H Creatinine 0.74 Estim Creat Clear Calc 67.5 Estimated GFR > 60 POC Glucose Random Glucose 165 H Calcium 9.2 Phosphorus 3.9 Magnesium 2.0 Albumin 2.6 L 04/06/21 11:10 WBC RBC Hgb Hct MCV MCH MCHC RDW Plt Count MPV Immature Gran % (Auto) Neut % (Auto) Lymph % (Auto) [place] % (Auto) Eos % (Auto) Baso % (Auto) Lymph # (Auto) [place] # (Auto) Eos # (Auto) Baso # (Auto) Abs Immat Gran (auto) Absolute Neuts (auto) Absolute Nucleated RBC Nucleated RBC % (auto) VBG pH VBG pCO2 VBG pO2 VBG HCO3 VBG O2 Saturation VBG Base Excess Sodium Potassium Chloride Carbon Dioxide Anion Gap BUN Creatinine Estim Creat Clear Calc Estimated GFR POC Glucose 306 H Random Glucose Calcium Phosphorus Magnesium Albumin Microbiology Microbiology Results: Microbiology 04/05/21 08:42 Urine Catheterized - Rashid Catheter Urine Culture - Preliminary Culture in progress. 04/05/21 07:25 Blood - Venous Blood Culture - Preliminary No growth after 24 hours. 04/05/21 07:25 Blood - Venous Blood Culture - Preliminary No growth after 24 hours. 04/05/21 08:42 Sputum - Suctioned Gram Stain - Final 04/05/21 08:42 Sputum - Suctioned Sputum Culture - Preliminary Culture in progress. 04/01/21 14:28 Sputum - Suctioned Gram Stain - Final 04/01/21 14:28 Sputum - Suctioned Sputum Culture - Final Preethi albicans 03/26/21 16:43 Blood - Venous Blood Culture - Final No growth after 5 days. 03/27/21 Unknown Urine Catheterized - Rashid Catheter Urine Culture - Final Escherichia coli 03/26/21 16:43 Blood - Venous Blood Culture - Final Escherichia coli Quality Stroke Does the patient have a stroke diagnosis?: No VTE Prior VTE?: No VTE Risk Level:: Medical - moderate - high VTE Device Contraindication: Treatment Not Indicated VTE Drug Contraindication: N/A - Med Ordered Progress Note: A&P Assessment and plan (1) Hypernatremia: Status: Acute (2) CVA (cerebral vascular accident): Status: Acute (3) Acute respiratory failure with hypoxemia: Status: Acute (4) Diastolic dysfunction: Status: Acute (5) Acute respiratory distress syndrome (ARDS) due to COVID-19 virus: Status: Acute (6) Encephalopathy: Status: Acute (7) UTI (urinary tract infection): Status: Acute (8) Bacteremia: Status: Acute (9) Lactic acid acidosis: Status: Acute (10) Pneumonia due to COVID-19 virus: Status: Acute (11) Acute hyperglycemia: Status: Acute (12) Acute kidney injury: Status: Acute (13) Respiratory failure with hypoxia: Status: Acute (14) Type 2 diabetes mellitus with unspecified complications: Status: Acute (15) Essential hypertension: Status: Acute (16) Atherosclerotic cardiovascular disease: Status: Acute (17) COPD (chronic obstructive pulmonary disease): Status: Acute (18) Obese: Status: Acute Assessment and Plan: So she he had already been treated with Rocephin for an E coli urinary tract infection and the urine currently not growing anything sputum is growing both Gram-positive cocci and yeast so she is being covered with caspofungin and vancomycin and back on assist control and sedation and probably try again tomorrow to wean from the ventilator
[2021-04-06] MEDS: propofoL 1,000 MG/100 ML VIAL 17.96 MG IVCONT ×2 (16:38→23:24)
[2021-04-06 18:01] LABS: Glucose, Whole Blood 286 mg/dL (60-115)
[2021-04-07] VITALS (37 sets, daily range): BP systolic 77–167; BP diastolic 38–77; PULSE 52–85; RESP 16–46; TEMP 36.8–37.7; O2SAT 91–97
[2021-04-07 00:36] LABS: Glucose, Whole Blood 160 mg/dL (60-115)
[2021-04-07] MEDS: 0.9 % Sodium Chloride Flush 3 ML SYRINGE IVFLUSH ×4 (01:30→23:09)
[2021-04-07] MEDS: propofoL 1,000 MG/100 ML VIAL 13.47 MG IVCONT (03:56)
[2021-04-07] MEDS: fentaNYL citrate/PF 100 MCG/2 ML VIAL IVPUSH (04:30)
[2021-04-07 05:38] LABS: VBG Base Excess 6.3 mmol/L; VBG HCO3 29 mmol/L (22-26); VBG pCO2 38 mmHg; VBG pH 7.49 (7.32-7.43); VBG pO2 45 mmHg
[2021-04-07 05:42] LABS: MANUAL DIFF FLAG NO
[2021-04-07 05:42] LABS: Glucose, Whole Blood 145 mg/dL (60-115)
[2021-04-07 05:43] LABS: Basophils Percent Auto 0.1 % (0-2); Eosinophils Absolute Auto 0.1 X10*3/uL (0.0-0.4); Hematocrit 33.4 % (37-47); Hemoglobin 10.3 g/dl (12.0-16.0); Imm Gran Abs Auto 0.05 X10*3/uL (0.00-0.03); Imm Gran Pct Auto 0.5 % (0.0-0.4); Lymphocytes Absolute Auto 2.9 X10*3/uL (1.2-4.9); Lymphocytes Percent Auto 26.4 % (20-40); Mean Corpuscular HGB Conc 30.8 g/dl (31.0-35.0); Mean Corpuscular Hemoglobin 25.1 pg (27.0-33.0); Mean Corpuscular Volume 81.5 fL (80-98); Monocytes Absolute Auto 0.6 X10*3/uL (0.1-1.2); Monocytes Percent Auto 5.4 % (2-11); Neutrophils Absolute Auto 7.4 X10*3/uL (2.0-8.3); Neutrophils Percent Auto 66.6 % (45-73); Platelet Count 298 X10*3/uL (160-400); Red Cell Distribution Width 15.8 % (11.0-16.0); White Blood Count 11.1 X10*3/uL (4.8-10.8)
[2021-04-07 06:09] LABS: Albumin Level 2.7 g/dL (3.5-5.0); Anion Gap 9 (12-20); Blood Urea Nitrogen 24 mg/dL (9-16); Calcium 8.6 mg/dL (8.4-10.2); Carbon Dioxide 31 mmol/L (22-29); Chloride 103 mmol/L (96-108); Creatinine Clr Calc Pharmacy 75.7; Estimated Glomerular Filt Rate > 60; Glucose Random 141 mg/dL (60-115); Phosphorus 3.3 mg/dL (2.7-4.5); Potassium 3.4 mmol/L (3.3-5.1); Sodium 140 mmol/L (135-145)
[2021-04-07 06:44] LABS: Venous Blood Gas Refer to POC result
[2021-04-07] MEDS: Enoxaparin Sodium 40 MG/0.4 ML SYRINGE SUBCUT (07:41)
[2021-04-07] MEDS: Chlorhexidine Gluc Oral Rinse 15 ML MOUTHWASH BUCCAL ×3 (07:41→21:01)
[2021-04-07] MEDS: dexAMETHasone sod phosphate 4 MG/ML VIAL 5 MG IVPUSH (07:42)
[2021-04-07] MEDS: ARIPiprazole 5 MG TABLET PO (07:42)
[2021-04-07] MEDS: Insulin Glargine,Hum.rec.anlog 100 UNIT/ML 10 ML VIAL 20 UNIT SUBCUT (07:43)
[2021-04-07] MEDS: Albuterol/Iprat 2.5/0.5MG 3 ML AMPUL.NEB INHALE ×3 (07:53→20:07)
--- NOTE | 2021-04-07 09:47 | MHC.CLN ---
F/U PT RECEIVING GLUCERNA AT MAX GOAL 50ML/HR WITH 30ML PROSOURCE BID AND 120CC WATER FLUSHES Q 4 HRS PROVIDES 1320KCALS (1676TOTAL KCALS WITH SEDATION; 30KCALS/KG ON CMW), 80G TOTAL PROTEIN (1.45G/KG BASED ON CMW), 1743CC TOTAL WATER FROM FORMULA AND FLUSHES (31.7ML/KG) PT IS TOLERATING TF WITH LOW RESIDUALS CONTINUE TO MONITOR TOLERANCE, RESIDUALS AND LYTES
[2021-04-07] MEDS: propofoL 1,000 MG/100 ML VIAL 8.98 MG IVCONT (11:26)
[2021-04-07] MEDS: Insulin Lispro 100 UNIT/ML 3 ML VIAL SUBCUT (11:31)
[2021-04-07 11:40] LABS: Glucose, Whole Blood 306 mg/dL (60-115)
[2021-04-07] MEDS: fentaNYL citrate/PF 100 MCG/2 ML VIAL 50 MCG IVPUSH ×2 (11:40→11:53)
--- NOTE | 2021-04-07 11:52 | P.PNCC_ITS ---
Subjective Subjective Date of Service: 04/07/21 Interval History: Mrs. Clemons was transferred to the ICU on March 29 with acute respiratory failure secondary to COVID pneumonia. The patient is a 65 yo F with PMHx of the following: CAD, s/p PTCA and stent Mild , last echo EF 60-65% COPD HTN CVA Obesity Diabetes w diabetic polyneuropathy.? On insulin. Dyslipidemia GERD Headache Arthritis Osteopenia Solitary pulmonary nodule Non-toxic multinodular goiter Psychiatric dis. on Abilify HISTORY OF PRESENT ILLNESS: ?The patient was previously vaccinated for COVID at some point.? The patient presented to the ED on March 26 complaining of severe shortness of breath x 1 day.? Had been diagnosed with COVID-19 on 03/21 after being symptomatic for the prior few weeks.? (I will estimate sx onset day as no later than 03/19, but could be as much as a week or two earlier). In ED triage, SpO2 was high 60s on room air.? W/U was notable for BUN/creat 60/2.4 (baseline 17/0.8), moderate metabolic acidosis, albumin 3.3, and UTI w bacteremia that grew out Ecoli.? CXR showed classic COVID/viral pneunonia, moderate-severe severity.? Venous duplex and perfusion scan were negative. The patient was admitted to Medicine and started on steroids and ceftriaxone.? No remdesivir or other agents.? She was also very hyperglycemic, started on insulin.? Echo on 03/28 was basically normal, with normal RV, LV, IVC.? Course was complicated by severe metabolic encephalopathy with agitated delirium. On 03/29 she required tx to ICU bec of hypoxemia.? Required intubation and lined a few hours later.? Baricitinib was added to her regimen.? FiO2 has declined progressively from the 100% range to 30% by Apr 05.? Renal indices also declined progressively, to a faith of 21/0.6 on Apr 04.? On Apr 04, the patient had to be reintubated for a tracheal tube change bec of concreted secret ions. Steroids were tapered and the patient is currently on Decadron 5mg daily.? The patient has failed weaning trials both yesterday and the day before.? Yesterday, caspofungin and vancomycin were started bec of borderline sputums. Today the patient was lightly sedated on only propfol at 20ug.? She was inconsistently appropriately interactive.? Heart rate was 78, sinus rhythm.? Blood pressure 139/62. ?On assist control 16/450/30%/+8, respiratory rate was 19, minute volume 8.5 L, PIP 39cm, end tidal CO2 33 and sat 96%.? Central venous blood gas this morning showed 7.49/38/+6.? She is afebrile.? No jugular venous distention with the head of bed at 20-30 degrees.? Chest is clear to auscultat ion, with a normal expiratory phase.? Heart tones are very soft.? Abdomen is benign.? She has no significant peripheral edema. We turned the propofol off and the patient remained calm.? We switched her over to pressure support ventilation.? Even after boluses of fentanyl, I could not get her respiratory rate below 30 on pressure support +5, respiratory rate was low 30s, with tidal volumes high 200s.? We put her back on assist control ventilation.? With tidal volumes of 350 cc, PIP was 29 cm, RR 30, but otherwise nonlabored. LABORATORY DATA:? As below.? Notably, POCs up to the 300s this afternoon.? Albumin is 2.7.? BNP is 60. Biomarkers:? None recently. MICROBIOLOGY:? UA urine spec from 04/05 is growing greater than 100,000 yeast, but no urinalysis was done.? Sputum Gram stain from 04/05 showed 2+ polys, 1+ yeast, and 1+ Gram-positive cocci, and is growing 2+ mixed respiratory rubio.? B lood cultures from 04/05 show no growth. IMPRESSION:? 65-year-old lady with multiple medical problems, including coronary and lung disease, diabetes and psychiatric dis. 1. Underlying COPD. 2. Bilat COVID pneumonia.? Estimated symptom onset day 03/19 or earlier.? Now doing very well, all things considered.? Continue baricitinib x 14 days.? I will add Vit C, Vit D, Pepcid, ASA, and thiamine, and up her steroids to Solumedrol 40 mg bid. 3. Hypoxemic respiratory failure, secondary to above.? Although her oxygenation is good, compliance is low.? That is why I?m upping her steroids. ?No evidence of CHF.? At this point, it seems likely that she will survive, but she may not escape without a tracheostomy.? Given her earlier course, she is not likely a good candidate for extubation to BiPAP.? We have changed her from propofol to Precedex and her respiratory rate has come down slightly on that. 4. SUDEEP.? Likely 2? sepsis on presentation (urosepsis with bacteremia).? Now almost back to baseline. 5. Hyperglycemia.? Worsened 2? increased steroid dose.? Started her on insulin drip. 6. Metabolic alakalosis.? Start Diamox. 7. Neuro/psych.? Continue abilify.? Surprisingly calm now on low dose Precedex. 8. ID.? Ecoli UTI and bacteremia are cleared.? ? Candiduria.? I?ve written her for one dose of fluconazole and we?ll check a urinalysis now.? If positive will continue the fluconazole. 9. Nutrition.? On full dose tube feed. Critical care time (including hosp course summary and mult vent changes):? 80 + min Critical Care Time (minutes): 80 Physical Exam Vital Signs: Vital Signs: Last Vital Signs Temp 99.1 F 04/07/21 11:00 Pulse 75 04/07/21 11:00 Resp 19 04/07/21 11:00 BP 139/62 04/07/21 11:00 Pulse Ox 96 04/07/21 11:00 Body Mass Index 32.2 Objective Data Labs CBC & Chem 7: 04/07/21 05:25 04/07/21 05:25 Labs: Laboratory Results - last 24 hr 04/06/21 04/06/21 04/07/21 17:55 23:28 05:25 WBC 11.1 H RBC 4.10 L Hgb 10.3 L Hct 33.4 L MCV 81.5 MCH 25.1 L MCHC 30.8 L RDW 15.8 Plt Count 298 MPV 12.0 Immature Gran % (Auto) 0.5 H Neut % (Auto) 66.6 Lymph % (Auto) 26.4 [place] % (Auto) 5.4 Eos % (Auto) 1.0 Baso % (Auto) 0.1 Lymph # (Auto) 2.9 [place] # (Auto) 0.6 Eos # (Auto) 0.1 Baso # (Auto) 0.0 Abs Immat Gran (auto) 0.05 H Absolute Neuts (auto) 7.4 Absolute Nucleated RBC 0.000 Nucleated RBC % (auto) 0.0 VBG pH VBG pCO2 VBG pO2 VBG HCO3 VBG O2 Saturation VBG Base Excess Sodium Potassium Chloride Carbon Dioxide Anion Gap BUN Creatinine Estim Creat Clear Calc Estimated GFR POC Glucose 286 H 160 H Random Glucose Calcium Phosphorus Magnesium Albumin 04/07/21 04/07/21 04/07/21 05:25 05:32 05:38 WBC RBC Hgb Hct MCV MCH MCHC RDW Plt Count MPV Immature Gran % (Auto) Neut % (Auto) Lymph % (Auto) [place] % (Auto) Eos % (Auto) Baso % (Auto) Lymph # (Auto) [place] # (Auto) Eos # (Auto) Baso # (Auto) Abs Immat Gran (auto) Absolute Neuts (auto) Absolute Nucleated RBC Nucleated RBC % (auto) VBG pH 7.49 H VBG pCO2 38 VBG pO2 45 VBG HCO3 29 H VBG O2 Saturation 75.0 VBG Base Excess 6.3 Sodium 140 Potassium 3.4 Chloride 103 Carbon Dioxide 31 H Anion Gap 9 L BUN 24 H Creatinine 0.66 Estim Creat Clear Calc 75.7 Estimated GFR > 60 POC Glucose 145 H Random Glucose 141 H Calcium 8.6 D Phosphorus 3.3 Magnesium 2.0 Albumin 2.7 L 04/07/21 11:29 WBC RBC Hgb Hct MCV MCH MCHC RDW Plt Count MPV Immature Gran % (Auto) Neut % (Auto) Lymph % (Auto) [place] % (Auto) Eos % (Auto) Baso % (Auto) Lymph # (Auto) [place] # (Auto) Eos # (Auto) Baso # (Auto) Abs Immat Gran (auto) Absolute Neuts (auto) Absolute Nucleated RBC Nucleated RBC % (auto) VBG pH VBG pCO2 VBG pO2 VBG HCO3 VBG O2 Saturation VBG Base Excess Sodium Potassium Chloride Carbon Dioxide Anion Gap BUN Creatinine Estim Creat Clear Calc Estimated GFR POC Glucose 306 H Random Glucose Calcium Phosphorus Magnesium Albumin Microbiology Microbiology Results: Microbiology 04/05/21 07:25 Blood - Venous Blood Culture - Preliminary No growth after 48 hours. 04/05/21 07:25 Blood - Venous Blood Culture - Preliminary No growth after 48 hours. 04/05/21 08:42 Sputum - Suctioned Gram Stain - Final 04/05/21 08:42 Sputum - Suctioned Sputum Culture - Final 04/05/21 08:42 Urine Catheterized - Rashid Catheter Urine Culture - Preliminary Culture in progress. 04/01/21 14:28 Sputum - Suctioned Gram Stain - Final 04/01/21 14:28 Sputum - Suctioned Sputum Culture - Final Preethi albicans 03/26/21 16:43 Blood - Venous Blood Culture - Final No growth after 5 days. 03/27/21 Unknown Urine Catheterized - Rashid Catheter Urine Culture - Final Escherichia coli 03/26/21 16:43 Blood - Venous Blood Culture - Final Escherichia coli Quality Stroke Does the patient have a stroke diagnosis?: No VTE Prior VTE?: No VTE Risk Level:: Medical - moderate - high VTE Device Contraindication: Treatment Not Indicated VTE Drug Contraindication: N/A - Med Ordered Critical Care Time Critical Care Time (minutes): 90
[2021-04-07] MEDS: dexmedeTOMIDidine HCL/NS 400 MCG/100 ML INFUS..BTL 7.48 MCG IVCONT (12:23)
[2021-04-07] MEDS: methylPREDNISolone Sod Succ 40 MG/ML VIAL IVPUSH (12:24)
[2021-04-07] MEDS: acetaZOLAMIDE sodium 500 MG VIAL IVPUSH (12:24)
[2021-04-07 13:59] LABS: B Type Natriuretic Peptide 60 pg/mL (<100)
[2021-04-07] MEDS: Insulin Regular/NS 100 UNIT/100 ML PLAST..BAG 8 UNIT IVCONT (18:08)
[2021-04-07 18:48] LABS: Glucose, Whole Blood 391 mg/dL (60-115)
[2021-04-07 20:25] LABS: Glucose, Whole Blood 304 mg/dL (60-115)
[2021-04-07 20:29] LABS: Appearance Urine HAZY; Color Urine YELLOW; Glucose Urine UA 500 MG/DL (NEG); Leukocyte Esterase Urine NEG (NEG); Nitrite Urine NEG (NEG); UACC Culture Trigger NO; Urine Blood TRACE (NEG); Urine Ketones NEG (NEG); Urine Protein TRACE MG/DL (NEG-TRACE)
[2021-04-07 20:34] LABS: Amorphous Sediment Urine 2+ /LPF
[2021-04-07 20:35] LABS: Bacteria Urine 1+ /LPF; Mucus Urine 1+ /LPF; Squamous Epithelial Cell Urine TRACE /LPF
[2021-04-07 20:36] LABS: WBC Urine 0 /HPF (0-4)
[2021-04-07] MEDS: Fluconazole in NaCl,Iso-Osm 200 MG/100 ML PIGGYBACK 100 MG IV (21:01)
[2021-04-07] MEDS: Thiamine HCL 100 MG TABLET 200 MG PO (21:02)
[2021-04-07] MEDS: Famotidine 20 MG TABLET PO (21:02)
[2021-04-07] MEDS: Ascorbic Acid 500 MG TABLET 1000 MG PO (21:02)
[2021-04-07 22:55] LABS: Glucose, Whole Blood 215 mg/dL (60-115)
[2021-04-07] MEDS: dexmedeTOMIDidine HCL/NS 400 MCG/100 ML INFUS..BTL 11.23 MCG IVCONT (23:05)
[2021-04-08] VITALS (40 sets, daily range): BP systolic 85–195; BP diastolic 48–77; PULSE 50–104; RESP 23–45; TEMP 36.6–37.3; O2SAT 91–97
[2021-04-08] MEDS: acetaZOLAMIDE sodium 500 MG VIAL IVPUSH (00:15)
[2021-04-08] MEDS: methylPREDNISolone Sod Succ 40 MG/ML VIAL IVPUSH ×2 (00:15→13:10)
[2021-04-08] MEDS: 0.9 % Sodium Chloride Flush 3 ML SYRINGE IVFLUSH ×2 (00:37→16:06)
[2021-04-08 02:10] LABS: Glucose, Whole Blood 142 mg/dL (60-115)
[2021-04-08 02:10] LABS: Glucose, Whole Blood 177 mg/dL (60-115)
[2021-04-08 04:11] LABS: Glucose, Whole Blood 236 mg/dL (60-115)
[2021-04-08] MEDS: Insulin Regular/NS 100 UNIT/100 ML PLAST..BAG IVCONT ×2 (05:00→20:34)
[2021-04-08] MEDS: fentaNYL citrate/PF 100 MCG/2 ML VIAL 50 MCG IVPUSH ×5 (05:05→20:33)
[2021-04-08 05:38] LABS: VBG Base Excess -3.2 mmol/L; VBG HCO3 21 mmol/L (22-26); VBG pCO2 35 mmHg; VBG pH 7.38 (7.32-7.43); VBG pO2 49 mmHg
[2021-04-08 05:44] LABS: Hematocrit 37.8 % (37-47); Hemoglobin 11.7 g/dl (12.0-16.0); Mean Corpuscular Hemoglobin 25.2 pg (27.0-33.0); Mean Corpuscular Volume 81.5 fL (80-98); Mean Platelet Volume 12.3 fL (9.4-12.3); Platelet Count 338 X10*3/uL (160-400); Red Blood Count 4.64 X10*6/uL (4.20-5.50); Red Cell Distribution Width 15.2 % (11.0-16.0); White Blood Count 9.7 X10*3/uL (4.8-10.8)
[2021-04-08 05:54] LABS: D Dimer 1044 NG/ML
[2021-04-08 06:05] LABS: Alanine Aminotransferase 25 U/L (0-31); Alkaline Phosphatase 95 U/L (39-117); Anion Gap 12 (12-20); Aspartate Amino Transferase 22 U/L (5-31); Bilirubin Total 0.5 mg/dL (0.0-1.0); Blood Urea Nitrogen 27 mg/dL (9-16); C Reactive Protein 1.19 mg/dL (< or = 0.50); Calcium 9.2 mg/dL (8.4-10.2); Carbon Dioxide 22 mmol/L (22-29); Chloride 109 mmol/L (96-108); Creatinine Clr Calc Pharmacy 65.8; Estimated Glomerular Filt Rate > 60; Glucose Random 262 mg/dL (60-115); Potassium 3.8 mmol/L (3.3-5.1); Sodium 139 mmol/L (135-145); Total Protein 7.1 g/dL (6.5-8.0)
[2021-04-08 06:07] LABS: Glucose, Whole Blood 241 mg/dL (60-115)
[2021-04-08 06:30] LABS: Venous Blood Gas Refer to POC result
[2021-04-08 06:32] LABS: Ferritin 303 ng/mL (10-250)
[2021-04-08 06:34] LABS: Glucose, Whole Blood 412 mg/dL (60-115)
[2021-04-08] MEDS: hydrALAZINE HCl 20 MG/ML VIAL 5 MG IVPUSH (07:07)
[2021-04-08] MEDS: dexmedeTOMIDidine HCL/NS 400 MCG/100 ML INFUS..BTL 11.23 MCG IVCONT (07:34)
[2021-04-08] MEDS: Albuterol/Iprat 2.5/0.5MG 3 ML AMPUL.NEB INHALE ×3 (07:46→20:13)
[2021-04-08 08:01] LABS: Glucose, Whole Blood 202 mg/dL (60-115)
[2021-04-08] MEDS: Cholecalciferol (Vitamin D3) 25 MCG TABLET 50 MCG PO (08:40)
[2021-04-08] MEDS: ARIPiprazole 5 MG TABLET PO (08:40)
[2021-04-08] MEDS: Enoxaparin Sodium 40 MG/0.4 ML SYRINGE SUBCUT (08:40)
[2021-04-08] MEDS: Chlorhexidine Gluc Oral Rinse 15 ML MOUTHWASH BUCCAL ×3 (08:40→20:33)
[2021-04-08] MEDS: Thiamine HCL 100 MG TABLET 200 MG PO ×2 (08:40→20:34)
[2021-04-08] MEDS: Famotidine 20 MG TABLET PO ×2 (08:40→20:34)
[2021-04-08] MEDS: Ascorbic Acid 500 MG TABLET 1000 MG PO ×2 (08:42→20:34)
[2021-04-08] MEDS: Aspirin 325 MG TABLET PO (08:42)
[2021-04-08] MEDS: Furosemide 20 MG/2 ML VIAL IVPUSH (09:00)
[2021-04-08] MEDS: lisinopriL 5 MG TABLET PO (10:23)
[2021-04-08] MEDS: Atorvastatin Calcium 40 MG TABLET PO (10:23)
[2021-04-08] MEDS: Metoclopramide HCl 10 MG/2 ML VIAL IVPUSH ×2 (10:23→17:41)
[2021-04-08] MEDS: Lactulose 20 GM/30 ML SOLUTION PO ×4 (10:23→20:33)
[2021-04-08 11:03] LABS: Glucose, Whole Blood 204 mg/dL (60-115)
[2021-04-08] MEDS: Furosemide 200 MG in 0.9 % Sodium Chloride 80 ML IVCONT (11:06)
--- NOTE | 2021-04-08 11:37 | MHC.CLN ---
F/U NSG REPORTED HIGH RESIDUALS 325CC TODAY DISCUSSED AT ROUNDS WITH MD PT RECEIVING GLUCERNA AT MAX GOAL 50ML/HR WITH 30ML PROSOURCE BID AND 120CC WATER FLUSHES Q 4 HRS PROVIDES 1320KCALS (1676TOTAL KCALS WITH SEDATION; 30KCALS/KG ON CMW), 80G TOTAL PROTEIN (1.45G/KG BASED ON CMW), 1743CC TOTAL WATER FROM FORMULA AND FLUSHES (31.7ML/KG) PT TO RECEIVE LACTULOSE R/T NO BM AND REGLAN FOR TF TOLERANCE PER MD CONTINUE TO MONITOR TOLERANCE, RESIDUALS AND LYTES
[2021-04-08] MEDS: dexmedeTOMIDidine HCL/NS 400 MCG/100 ML INFUS..BTL 18.71 MCG IVCONT ×2 (12:46→17:41)
[2021-04-08] MEDS: Acetylcysteine 10 % 400 MG/4 ML VIAL INHALE ×2 (12:53→20:13)
[2021-04-08] MEDS: propofoL 1,000 MG/100 ML VIAL 8.98 MG IVCONT (13:10)
--- NOTE | 2021-04-08 13:15 | P.PNCC_ITS ---
Subjective Subjective Date of Service: 04/08/21 Interval History: Mrs. Clemons was transferred to the ICU on March 29 with acute respiratory failure secondary to COVID pneumonia. The patient is a 65 yo F with PMHx of the following: CAD, s/p PTCA and stent Mild , last echo EF 60-65% COPD HTN CVA Obesity Diabetes w diabetic polyneuropathy.? On insulin. Dyslipidemia GERD Headache Arthritis Osteopenia Solitary pulmonary nodule Non-toxic multinodular goiter Psychiatric dis. on abilify HISTORY OF PRESENT ILLNESS:? The patient was previously vaccinated for COVID at some point.? The patient presented to the ED on March 26 complaining of severe shortness of breath x 1 day.? Had been diagnosed with COVID-19 on 03/21 after being symptomatic for the prior few weeks.? (I will estimate sx onset day as no later than 03/19, but could be as much as a week or two earlier). In ED triage, SpO2 was high 60s on room air.? W/U was notable for BUN/creat 60/2.4 (baseline 17/0.8), moderate metabolic acidosis, albumin 3.3, and UTI w bacteremia that grew out Ecoli.? CXR showed classic COVID/viral pneunonia, moderate-severe severity.? Venous duplex and perfusion scan were negative. The patient was admitted to Medicine and started on steroids and ceftriaxone.? No remdesivir or other agents.? She was also very hyperglycemic, started on insulin.? Echo on 03/28 was basically normal, with normal RV, LV, IVC.? Course was complicated by severe metabolic encephalopathy with agitated delirium. On 03/29 she required tx to ICU bec of hypoxemia.? Required intubation and lined a few hours later.? Baricitinib was added to her regimen.? FiO2 has declined pr ogressively from the 100% range to 30% by Apr 05.? Renal indices also declined progressively, to a faith of 21/0.6 on Apr 04.? On Apr 04, the patient had to be reintubated for a tracheal tube change bec of concreted secretions. Steroids were tapered to Decadron 5mg daily.? The patient failed weaning trials for the last three days.? On Apr 06, caspofungin and vancomycin were started bec of borderline sputums, but I d/c?d them yesterday after further analysis showed no significant findings.? Urine culture from 04/05 grew out yeast, but without a parallel u/a.? U/A done last night was negative.? Yesterday, upped her steroids to 40 mg bid, and added Vit C and Vit D.? We also started her on an insulin drip. Today the patient is lightly sedated on only Precedex at 1ug, along w her Abilify.? She is calm and seems mostly appropriately interactive.? Heart rate 71, sinus rhythm.? Blood pressure 137/61 after her Lisinopril from home was restarted.? On assist control 16/350/30%/+5, RR low 30s-40s, Ve 12-14L, PIP 19cm, ETCO2 27 and sat 92%.? CVBG this morning showed 7.38/35/-3.? She is afebrile.? No jugular venous distention with the head of bed at 20-30 degrees.? Chest is clear to auscultation, with a normal expiratory phase.? Heart tones are soft.? Abdomen is benign.? She has no significant peripheral edema. I/O balance = + 4.5L LABORATORY DATA:? As below.? Notably, WBC is down, Hb is up with diuresis, BUN/creat up slightly, with elevated ratio, POCs down to low 200s on insulin drip. Biomarkers:? BNP down to 1044, Ferritin 303, CRP is down. IMPRESSION:? 65-year-old lady with multiple medical problems, including coronary and lung disease, diabetes and psychiatric dis. 1. Underlying COPD. 2. Bilat COVID pneumonia.? Estimated symptom onset day 03/19 or earlier.? Now doing very well, all things considered.? Continue baricitinib x 14 days (today is day 12).? Added Vit C, Vit D, Pepcid, ASA, and thiamine yesterday, and upped her steroids to Solumedrol 40 mg bid. 3. Hypoxemic respiratory failure, secondary to above.? No evidence of CHF (by BNP, and no JVD or edema).? We?ve started her on Lasix bec she?s almost 5L positive.? At this point, it seems likely that she will survive, but she may not escape without a tracheostomy.? Given her earlier course, she is not likely a good candidate for extubation to BiPAP.? We?ll add propofol to see if that helps reduce her Ve. 4. SUDEEP.? Likely 2? sepsis on presentation (urosepsis with bacteremia).? Now renal indices almost back to baseline. 5. Hyperglycemia.? Worsened 2? increased steroid dose.? On insulin drip. 6. Metabolic alakalosis.? Treated fully w Diamox.? D/C. 7. Neuro/psych.? Continue abilify.? Also restarted her gabapentin.? Surprisingly calm now on low dose Precedex. 8. ID.? Ecoli UTI and bacteremia are cleared.? Candiduria is colonization.? We?ll change her Rashid catheter. 9. Nutrition.? On full dose glucerna tube feed. Critical care time (include mult visits to the bedside bec of high RR and Ve):? 60 + min Critical Care Time (minutes): 60 Physical Exam Vital Signs: Vital Signs: Last Vital Signs Temp 98.6 F 04/08/21 13:00 Pulse 71 04/08/21 13:00 Resp 44 H 04/08/21 13:00 BP 137/61 04/08/21 13:00 Pulse Ox 91 L 04/08/21 13:00 Body Mass Index 32.2 Objective Data Labs CBC & Chem 7: 04/08/21 05:30 04/08/21 05:30 Labs: Laboratory Results - last 24 hr 04/04/21 04/07/21 04/07/21 18:17 13:28 17:59 WBC RBC Hgb Hct MCV MCH MCHC RDW Plt Count MPV Absolute Nucleated RBC Nucleated RBC % (auto) D-Dimer VBG pH VBG pCO2 VBG pO2 VBG HCO3 VBG O2 Saturation VBG Base Excess Sodium Potassium Chloride Carbon Dioxide Anion Gap BUN Creatinine Estim Creat Clear Calc Estimated GFR POC Glucose 412 H* 391 H* Random Glucose Calcium Ferritin Total Bilirubin AST ALT Alkaline Phosphatase C-Reactive Protein B-Natriuretic Peptide 60 Total Protein Albumin Urine Color Urine Appearance Urine pH Ur Specific Mulino Urine Protein Urine Glucose (UA) Urine Ketones Urine Blood Urine Nitrite Ur Leukocyte Esterase Urine RBC Urine WBC Ur Squamous Epith Cells Amorphous Sediment Urine Bacteria Urine Mucus 04/07/21 04/07/21 04/07/21 20:09 20:25 21:56 WBC RBC Hgb Hct MCV MCH MCHC RDW Plt Count MPV Absolute Nucleated RBC Nucleated RBC % (auto) D-Dimer VBG pH VBG pCO2 VBG pO2 VBG HCO3 VBG O2 Saturation VBG Base Excess Sodium Potassium Chloride Carbon Dioxide Anion Gap BUN Creatinine Estim Creat Clear Calc Estimated GFR POC Glucose 304 H 215 H Random Glucose Calcium Ferritin Total Bilirubin AST ALT Alkaline Phosphatase C-Reactive Protein B-Natriuretic Peptide Total Protein Albumin Urine Color YELLOW Urine Appearance HAZY Urine pH 8.0 Ur Specific Mulino 1.010 Urine Protein TRACE Urine Glucose (UA) 500 H Urine Ketones NEG Urine Blood TRACE Urine Nitrite NEG Ur Leukocyte Esterase NEG Urine RBC 5-9 H Urine WBC 0 Ur Squamous Epith Cells TRACE Amorphous Sediment 2+ Urine Bacteria 1+ Urine Mucus 1+ 04/08/21 04/08/21 04/08/21 00:18 02:05 04:05 WBC RBC Hgb Hct MCV MCH MCHC RDW Plt Count MPV Absolute Nucleated RBC Nucleated RBC % (auto) D-Dimer VBG pH VBG pCO2 VBG pO2 VBG HCO3 VBG O2 Saturation VBG Base Excess Sodium Potassium Chloride Carbon Dioxide Anion Gap BUN Creatinine Estim Creat Clear Calc Estimated GFR POC Glucose 142 H 177 H 236 H Random Glucose Calcium Ferritin Total Bilirubin AST ALT Alkaline Phosphatase C-Reactive Protein B-Natriuretic Peptide Total Protein Albumin Urine Color Urine Appearance Urine pH Ur Specific Mulino Urine Protein Urine Glucose (UA) Urine Ketones Urine Blood Urine Nitrite Ur Leukocyte Esterase Urine RBC Urine WBC Ur Squamous Epith Cells Amorphous Sediment Urine Bacteria Urine Mucus 04/08/21 04/08/21 04/08/21 05:30 05:30 05:30 WBC 9.7 RBC 4.64 Hgb 11.7 L Hct 37.8 MCV 81.5 MCH 25.2 L MCHC 31.0 RDW 15.2 Plt Count 338 MPV 12.3 Absolute Nucleated RBC 0.000 Nucleated RBC % (auto) 0.0 D-Dimer 1044 VBG pH VBG pCO2 VBG pO2 VBG HCO3 VBG O2 Saturation VBG Base Excess Sodium 139 Potassium 3.8 Chloride 109 H Carbon Dioxide 22 Anion Gap 12 BUN 27 H Creatinine 0.76 Estim Creat Clear Calc 65.8 Estimated GFR > 60 POC Glucose Random Glucose 262 H Calcium 9.2 D Ferritin 303 H Total Bilirubin 0.5 AST 22 D ALT 25 Alkaline Phosphatase 95 D C-Reactive Protein 1.19 H B-Natriuretic Peptide Total Protein 7.1 Albumin 3.0 L Urine Color Urine Appearance Urine pH Ur Specific [place] Urine Protein Urine Glucose (UA) Urine Ketones Urine Blood Urine Nitrite Ur Leukocyte Esterase Urine RBC Urine WBC Ur Squamous Epith Cells Amorphous Sediment Urine Bacteria Urine Mucus 04/08/21 04/08/21 04/08/21 05:33 06:01 07:46 WBC RBC Hgb Hct MCV MCH MCHC RDW Plt Count MPV Absolute Nucleated RBC Nucleated RBC % (auto) D-Dimer VBG pH 7.38 VBG pCO2 35 VBG pO2 49 VBG HCO3 21 L VBG O2 Saturation 76.0 VBG Base Excess -3.2 Sodium Potassium Chloride Carbon Dioxide Anion Gap BUN Creatinine Estim Creat Clear Calc Estimated GFR POC Glucose 241 H 202 H Random Glucose Calcium Ferritin Total Bilirubin AST ALT Alkaline Phosphatase C-Reactive Protein B-Natriuretic Peptide Total Protein Albumin Urine Color Urine Appearance Urine pH Ur Specific [place] Urine Protein Urine Glucose (UA) Urine Ketones Urine Blood Urine Nitrite Ur Leukocyte Esterase Urine RBC Urine WBC Ur Squamous Epith Cells Amorphous Sediment Urine Bacteria Urine Mucus 04/08/21 10:59 WBC RBC Hgb Hct MCV MCH MCHC RDW Plt Count MPV Absolute Nucleated RBC Nucleated RBC % (auto) D-Dimer VBG pH VBG pCO2 VBG pO2 VBG HCO3 VBG O2 Saturation VBG Base Excess Sodium Potassium Chloride Carbon Dioxide Anion Gap BUN Creatinine Estim Creat Clear Calc Estimated GFR POC Glucose 204 H Random Glucose Calcium Ferritin Total Bilirubin AST ALT Alkaline Phosphatase C-Reactive Protein B-Natriuretic Peptide Total Protein Albumin Urine Color Urine Appearance Urine pH Ur Specific Mulino Urine Protein Urine Glucose (UA) Urine Ketones Urine Blood Urine Nitrite Ur Leukocyte Esterase Urine RBC Urine WBC Ur Squamous Epith Cells Amorphous Sediment Urine Bacteria Urine Mucus Microbiology Microbiology Results: Microbiology 04/05/21 08:42 Urine Catheterized - Rashid Catheter Urine Culture - Preliminary Yeast 04/05/21 07:25 Blood - Venous Blood Culture - Preliminary No growth after 48 hours. 04/05/21 07:25 Blood - Venous Blood Culture - Preliminary No growth after 48 hours. 04/05/21 08:42 Sputum - Suctioned Gram Stain - Final 04/05/21 08:42 Sputum - Suctioned Sputum Culture - Final 04/01/21 14:28 Sputum - Suctioned Gram Stain - Final 04/01/21 14:28 Sputum - Suctioned Sputum Culture - Final Preethi albicans 03/26/21 16:43 Blood - Venous Blood Culture - Final No growth after 5 days. 03/27/21 Unknown Urine Catheterized - Rashid Catheter Urine Culture - Final Escherichia coli 03/26/21 16:43 Blood - Venous Blood Culture - Final Escherichia coli Quality Stroke Does the patient have a stroke diagnosis?: No VTE Prior VTE?: No VTE Risk Level:: Medical - moderate - high VTE Device Contraindication: Treatment Not Indicated VTE Drug Contraindication: N/A - Med Ordered Critical Care Time Critical Care Time (minutes): 60
[2021-04-08] MEDS: Potassium Chloride/H20 40 MEQ/100 ML PIGGYBACK 50 MEQ IV (14:02)
[2021-04-08 14:08] LABS: Glucose, Whole Blood 174 mg/dL (60-115)
--- NOTE | 2021-04-08 15:54 | MHC.CM.PN ---
Pt continues in ICU intubated secondary to COVID. Per discussion at rounds, it is unlikely pt can successfully wean from vent even though she is at 30% FiO2, and will likely need a trach. Referral to [facility] made: family not updated at this time as plans remain speculative. CM to follow
[2021-04-08 17:02] LABS: Glucose, Whole Blood 161 mg/dL (60-115)
--- NOTE | 2021-04-08 17:26 | PC.NURSE ---
S/E Afebrile, WBC 9.7 Sedated on Precedex gtt & Propofol gtt Arousable to tactile stimuli ; positive cough & gag Positive pain repsonse ; pupils PERRLA Sinus, HR 50-90's, no ectopy Started on Lasix gtt - titrated down to 4mg/hr K 3.8 - Pot Chld 40meq IV x1 administered SBP 180s - Hydralazine 5mg IVP & Lisinopril 5mg administered Edema bilateral hands, nonpitting R IJ TLC patent LS coarse crackles throughout Scant thick pink tinged inline secretions Mucomyst added on ; continued on Solumedrol ETT 7.5, 25cm @ lip ; Vent settings unchanged RR maintaining 40's, rapid shallow breaths Fentanyl 50mcg PRN administered x3 w/ little effect RR down to mid 30's w/ Propofol gtt added on Abdomen soft, positive bowel sounds No BM - started on Lactulose x4 doses Tube feed residuals 375cc - feeds on hold until BM per MD Started on Reglan x3 doses Total urine output 2120cc throughout shift Diamox discontinued ; Rashid changed per MD No skin integrity concerns, barrier cream applied, bathed Repo q2hr, prevlon system & air loss bed in place
[2021-04-08 18:13] LABS: Anion Gap 15 (12-20); Blood Urea Nitrogen 29 mg/dL (9-16); Calcium 9.6 mg/dL (8.4-10.2); Carbon Dioxide 22 mmol/L (22-29); Chloride 109 mmol/L (96-108); Creatinine Clr Calc Pharmacy 59.5; Estimated Glomerular Filt Rate > 60; Glucose Random 166 mg/dL (60-115); Potassium 3.9 mmol/L (3.3-5.1); Sodium 142 mmol/L (135-145)
[2021-04-08 20:09] LABS: Glucose, Whole Blood 155 mg/dL (60-115)
[2021-04-08] MEDS: propofoL 1,000 MG/100 ML VIAL 13.47 MG IVCONT (20:33)
[2021-04-08] MEDS: dexmedeTOMIDidine HCL/NS 400 MCG/100 ML INFUS..BTL 14.97 MCG IVCONT (20:33)
[2021-04-08] MEDS: Gabapentin 600 MG TABLET PO (20:34)
[2021-04-08 23:58] LABS: Glucose, Whole Blood 126 mg/dL (60-115)
[2021-04-09] VITALS (40 sets, daily range): BP systolic 72–160; BP diastolic 38–73; PULSE 55–115; RESP 16–43; TEMP 36.6–38.5; O2SAT 89–96
[2021-04-09] MEDS: methylPREDNISolone Sod Succ 40 MG/ML VIAL IVPUSH ×2 (00:02→12:37)
[2021-04-09] MEDS: propofoL 1,000 MG/100 ML VIAL 17.96 MG IVCONT (01:49)
[2021-04-09] MEDS: Metoclopramide HCl 10 MG/2 ML VIAL IVPUSH ×3 (01:49→17:29)
[2021-04-09 01:55] LABS: Glucose, Whole Blood 96 mg/dL (60-115)
--- NOTE | 2021-04-09 03:04 | PC.NURSE ---
Afebrile. NSR/SB on tele, HR 50-60s. Levophed ordered and titrated to maintain MAP > 65. Sedated on precedex and propofol, arousable to noxious stimuli, titrated for vent synchrony. ETT #7.5, 25 cm at lip. Suctioned for moderate amount of thick/pink-tinged secretions. +C/G. Vent settings- AC 16/350/5/30%, RR 30s, SpO2 > 92%. PRN IVP fentanyl given x1 with little effect. Lasix gtt running per order, UOP approx 50 ml/hr. TF on hold. Insulin gtt titrated per PA. No BM. Repositioned q2hr, skin intact. Family updated and facetimed with pt.
[2021-04-09] MEDS: dexmedeTOMIDidine HCL/NS 400 MCG/100 ML INFUS..BTL 11.23 MCG IVCONT ×3 (03:53→19:54)
[2021-04-09] MEDS: fentaNYL citrate/PF 100 MCG/2 ML VIAL 50 MCG IVPUSH (03:53)
[2021-04-09 04:06] LABS: Glucose, Whole Blood 199 mg/dL (60-115)
[2021-04-09 05:24] LABS: VBG Base Excess -0.2 mmol/L; VBG HCO3 24 mmol/L (22-26); VBG pCO2 40 mmHg; VBG pH 7.39 (7.32-7.43); VBG pO2 42 mmHg
[2021-04-09 05:41] LABS: Hematocrit 40.4 % (37-47); Hemoglobin 12.5 g/dl (12.0-16.0); Mean Corpuscular HGB Conc 30.9 g/dl (31.0-35.0); Mean Corpuscular Hemoglobin 25.3 pg (27.0-33.0); Mean Corpuscular Volume 81.6 fL (80-98); Mean Platelet Volume 12.2 fL (9.4-12.3); Platelet Count 406 X10*3/uL (160-400); Red Blood Count 4.95 X10*6/uL (4.20-5.50); Red Cell Distribution Width 15.8 % (11.0-16.0); White Blood Count 15.7 X10*3/uL (4.8-10.8)
[2021-04-09 05:51] LABS: Anion Gap 12 (12-20); Blood Urea Nitrogen 38 mg/dL (9-16); Calcium 9.7 mg/dL (8.4-10.2); Carbon Dioxide 27 mmol/L (22-29); Chloride 106 mmol/L (96-108); Creatinine Clr Calc Pharmacy 52.6; Estimated Glomerular Filt Rate 59; Glucose Random 233 mg/dL (60-115); Magnesium 2.3 mg/dL (1.6-2.6); Phosphorus 5.8 mg/dL (2.7-4.5); Potassium 4.1 mmol/L (3.3-5.1); Sodium 141 mmol/L (135-145)
[2021-04-09 06:18] LABS: Venous Blood Gas Refer to POC result
[2021-04-09 07:08] LABS: Glucose, Whole Blood 233 mg/dL (60-115)
[2021-04-09] MEDS: Chlorhexidine Gluc Oral Rinse 15 ML MOUTHWASH BUCCAL ×3 (07:25→19:55)
[2021-04-09] MEDS: Enoxaparin Sodium 40 MG/0.4 ML SYRINGE SUBCUT (07:25)
[2021-04-09] MEDS: Aspirin 325 MG TABLET PO (07:26)
[2021-04-09] MEDS: Famotidine 20 MG TABLET PO ×2 (07:26→19:56)
[2021-04-09] MEDS: Cholecalciferol (Vitamin D3) 25 MCG TABLET 50 MCG PO (07:26)
[2021-04-09] MEDS: ARIPiprazole 5 MG TABLET PO (07:27)
[2021-04-09] MEDS: Ascorbic Acid 500 MG TABLET 1000 MG PO ×2 (07:27→19:54)
[2021-04-09] MEDS: lisinopriL 5 MG TABLET PO (07:27)
[2021-04-09] MEDS: 0.9 % Sodium Chloride Flush 3 ML SYRINGE IVFLUSH (07:28)
[2021-04-09] MEDS: Thiamine HCL 100 MG TABLET 200 MG PO ×2 (07:28→19:55)
[2021-04-09] MEDS: Atorvastatin Calcium 40 MG TABLET PO (07:28)
[2021-04-09] MEDS: propofoL 1,000 MG/100 ML VIAL 15.72 MG IVCONT ×3 (07:34→18:08)
[2021-04-09 07:54] LABS: SARS COV2 IgG Positive (Negative)
[2021-04-09] MEDS: Acetylcysteine 10 % 400 MG/4 ML VIAL INHALE ×4 (08:01→20:07)
[2021-04-09 10:11] LABS: Glucose, Whole Blood 212 mg/dL (60-115)
[2021-04-09 10:16] LABS: Lactic Acid 1.8 mmol/L (0.5-2.0)
[2021-04-09] MEDS: Lactulose 20 GM/30 ML SOLUTION PO ×3 (10:38→17:29)
[2021-04-09] MEDS: fentaNYL citrate/NS 1,000 MCG/100 ML PLAST..BAG 10 MCG IVCONT ×2 (11:28→18:08)
--- NOTE | 2021-04-09 11:42 | P.PNCC_ITS ---
Subjective Subjective Date of Service: 04/09/21 Interval History: Mrs. Celmons was transferred to the ICU on March 29 with acute respiratory failure secondary to COVID pneumonia. The patient is a 65 yo F with PMHx of the following: CAD, s/p PTCA and stent Mild , last echo EF 60-65% COPD HTN CVA Obesity Diabetes w diabetic polyneuropathy.? On insulin. Dyslipidemia GERD Headache Arthritis Osteopenia Solitary pulmonary nodule Non-toxic multinodular goiter Psychiatric dis. on abilify HISTORY OF PRESENT ILLNESS:? The patient was previously vaccinated for COVID.? The patient presented to the ED on March 26 complaining of severe shortness of breath x 1 day.? Had been diagnosed with COVID-19 on 03/21 after being symptomatic for the prior few weeks.? (I am estimating sx onset day as 03/19, but could be as much as a week or two earlier). In ED triage, SpO2 was high 60s on room air.? W/U was notable for BUN/creat 60/2.4 (baseline 17/0.8), moderate metabolic acidosis, albumin 3.3, and UTI w bacteremia that grew out Ecoli.? CXR showed classic COVID/viral pneunonia, mod erately severe.? Venous duplex and perfusion scans were negative. The patient was admitted to Medicine and started on steroids and ceftriaxone.? No remdesivir or other agents.? She was also very hyperglycemic, started on insulin.? Echo on 03/28 was basically normal, with normal RV, LV, IVC.? Course was complicated by severe metabolic encephalopathy with agitated delirium. On 03/29 she required tx to ICU bec of hypoxemia.? Required intubation and was li asuncion a few hours later.? Baricitinib was added to her regimen.? FiO2 declined progressively from the 100% range to 30% by Apr 05.? Renal indices also declined progressively, to a faith of 21/0.6 on Apr 04.? On Apr 04, the patient had to be reintubated for a tracheal tube change bec of concreted se cretions. Steroids were tapered to Decadron 5mg daily.? The patient failed weaning trials for the last four days.? On Apr 06, caspofungin and vancomycin were started bec of borderline sputums, but I d/c?d them the next day after further analysis showed no significant findings.? Urine culture from 04/05 grew out yeast and fluconazole one dose was given, but f/u U/A was negative, so fluconazole was d/c?d.? On 04/07, I upped her steroids to 40 mg bid, added Vit C and Vit D, and started her on an insulin drip.? Yesterday started vigorous diuresis to try to get her minute volume down. Over the last two days, had been doing very well mental status-mandujano on light sedation with Precedex, plus her Abilify and gabapentin.? Added propofol yesterday in a further effort to decrease her minute volume, given that her pCO2 was low.? The propofol helped a little. Today the patient is moderately sedated on Precedex 0.6ug, propofol 3.5mg, and her Abilify and gabapentin.? She?s also on insulin 3 units/hour. ?She is calm.? Heart rate 105, sinus rhythm.? Blood pressure 145/69, on Lisinopril.? Was hypotensive earlier, requiring Levophed, thought 2? sedative meds.? On assist control 16/350/30%/+5, RR 40, Ve 14L, PIP 23cm, ETCO2 30, and sat 90%.? CVBG this morning showed 7.39/40/0.? Tmax 100.2.? No jugular venous distention with the head of bed at 20-30 degrees.? Chest is clear to auscultation, with a normal expiratory phase.? Heart tones are soft.? Abdomen is benign.? She has no peripheral edema. I/O balance = Negative 1.5L yesterday.? Still 3L positive. LABORATORY DATA:? As below.? Notably, WBC bumped to 15, Hb is up with diuresis, BUN/creat up to 38/0.9 after diuresis (from 29/0.8), POCs low 200s on insulin drip.? SARS COV2 IgG was positive this morning.? Lactic acid 1.8. IMPRESSION: ?65-year-old lady with multiple medical problems, including coronary and lung disease, diabetes and psychiatric dis. 1. Underlying COPD. 2. Bilat COVID pneumonia.? Estimated symptom onset day 03/19 or earlier.? Now doing very well from an oxygenation point of view.? Continue baricitinib x 14 days (today is day 13).? Added Vit C, Vit D, Pepcid, ASA, and thiamine on 04/07, and upped her steroids to Solumedrol 40 mg bid. 3. Hypoxemic respiratory failure, secondary to above.? No evidence of CHF (by BNP, and no JVD or edema).? We started her on Lasix bec of the high Ve, bec she was 5L positive.? Nothing has changed her high Ve, so we?ll start her on a fentanyl gtt.? At this point, it seems likely that she will survive, but she may not escape without a tracheostomy.? Given her earlier course, she is not likely a candidate for extubation to BiPAP. 4. SUDEEP on admission -- likely 2? sepsis (urosepsis with bacteremia).? Renal indices came almost back to baseline.? Now elevated again bec of diuresis.? Stopped the Lasix this morning. 5. Hyperglycemia.? Worsened 2? increased steroid dose.? On insulin drip. 6. Metabolic alakalosis.? Treated fully w Diamox.? D/C?d. 7. Neuro/psych.? Continue abilify and gabapentin.? Seems to have done well on Precedex alone.? We?ll see if we can get the propofol off after starting the fentanyl gtt. 8. ID.? Ecoli UTI and bacteremia are cleared.? Candiduria was colonization.? Changee her Rashid catheter yesterday.? Nas blood cultures this morning bec of the WBC bump. 9. Nutrition.? On full dose glucerna tube feed.? High residuals this morning, no stool.? Started her on lactulose and Reglan. 10. Hypotension.? Thought secondary to sedative meds.? Not septic.? Blood cultures and lactate drawn just in case. Critical care time:? 60 min. Critical Care Time (minutes): 60 Physical Exam Vital Signs: Vital Signs: Last Vital Signs Temp 100.2 F 04/09/21 11:00 Pulse 91 04/09/21 11:00 Resp 43 H 04/09/21 11:28 BP 145/69 H 04/09/21 11:00 Pulse Ox 94 04/09/21 11:00 Body Mass Index 32.2 Objective Data Labs CBC & Chem 7: 04/09/21 05:16 04/09/21 05:16 Labs: Laboratory Results - last 24 hr 04/08/21 04/08/21 04/08/21 14:04 16:58 17:51 WBC RBC Hgb Hct MCV MCH MCHC RDW Plt Count MPV Absolute Nucleated RBC Nucleated RBC % (auto) VBG pH VBG pCO2 VBG pO2 VBG HCO3 VBG O2 Saturation VBG Base Excess Sodium 142 Potassium 3.9 Chloride 109 H Carbon Dioxide 22 Anion Gap 15 BUN 29 H Creatinine 0.84 Estim Creat Clear Calc 59.5 Estimated GFR > 60 POC Glucose 174 H 161 H Random Glucose 166 H Lactic Acid Calcium 9.6 Phosphorus Magnesium SARS-CoV-2 IgG Ab 04/08/21 04/08/21 04/09/21 20:03 23:08 01:50 WBC RBC Hgb Hct MCV MCH MCHC RDW Plt Count MPV Absolute Nucleated RBC Nucleated RBC % (auto) VBG pH VBG pCO2 VBG pO2 VBG HCO3 VBG O2 Saturation VBG Base Excess Sodium Potassium Chloride Carbon Dioxide Anion Gap BUN Creatinine Estim Creat Clear Calc Estimated GFR POC Glucose 155 H 126 H 96 Random Glucose Lactic Acid Calcium Phosphorus Magnesium SARS-CoV-2 IgG Ab 04/09/21 04/09/21 04/09/21 03:58 05:16 05:16 WBC 15.7 H RBC 4.95 Hgb 12.5 Hct 40.4 MCV 81.6 MCH 25.3 L MCHC 30.9 L RDW 15.8 Plt Count 406 H MPV 12.2 Absolute Nucleated RBC 0.000 Nucleated RBC % (auto) 0.0 VBG pH VBG pCO2 VBG pO2 VBG HCO3 VBG O2 Saturation VBG Base Excess Sodium 141 Potassium 4.1 Chloride 106 Carbon Dioxide 27 Anion Gap 12 BUN 38 H Creatinine 0.95 Estim Creat Clear Calc 52.6 Estimated GFR 59 POC Glucose 199 H Random Glucose 233 H Lactic Acid Calcium 9.7 Phosphorus 5.8 H Magnesium 2.3 SARS-CoV-2 IgG Ab 04/09/21 04/09/21 04/09/21 05:16 05:18 07:02 WBC RBC Hgb Hct MCV MCH MCHC RDW Plt Count MPV Absolute Nucleated RBC Nucleated RBC % (auto) VBG pH 7.39 VBG pCO2 40 VBG pO2 42 VBG HCO3 24 VBG O2 Saturation 67.0 VBG Base Excess -0.2 Sodium Potassium Chloride Carbon Dioxide Anion Gap BUN Creatinine Estim Creat Clear Calc Estimated GFR POC Glucose 233 H Random Glucose Lactic Acid Calcium Phosphorus Magnesium SARS-CoV-2 IgG Ab Positive 04/09/21 04/09/21 09:32 10:06 WBC RBC Hgb Hct MCV MCH MCHC RDW Plt Count MPV Absolute Nucleated RBC Nucleated RBC % (auto) VBG pH VBG pCO2 VBG pO2 VBG HCO3 VBG O2 Saturation VBG Base Excess Sodium Potassium Chloride Carbon Dioxide Anion Gap BUN Creatinine Estim Creat Clear Calc Estimated GFR POC Glucose 212 H Random Glucose Lactic Acid 1.8 Calcium Phosphorus Magnesium SARS-CoV-2 IgG Ab Microbiology Microbiology Results: Microbiology 04/05/21 08:42 Urine Catheterized - Rashid Catheter Urine Culture - Final Preethi glabrata 04/05/21 07:25 Blood - Venous Blood Culture - Preliminary No growth after 48 hours. 04/05/21 07:25 Blood - Venous Blood Culture - Preliminary No growth after 48 hours. 04/05/21 08:42 Sputum - Suctioned Gram Stain - Final 04/05/21 08:42 Sputum - Suctioned Sputum Culture - Final 04/01/21 14:28 Sputum - Suctioned Gram Stain - Final 04/01/21 14:28 Sputum - Suctioned Sputum Culture - Final Preethi albicans 03/26/21 16:43 Blood - Venous Blood Culture - Final No growth after 5 days. 03/27/21 Unknown Urine Catheterized - Rashid Catheter Urine Culture - Final Escherichia coli 03/26/21 16:43 Blood - Venous Blood Culture - Final Escherichia coli Quality Stroke Does the patient have a stroke diagnosis?: No VTE Prior VTE?: No VTE Risk Level:: Medical - moderate - high VTE Device Contraindication: Treatment Not Indicated VTE Drug Contraindication: N/A - Med Ordered Critical Care Time Critical Care Time (minutes): 60
--- NOTE | 2021-04-09 11:46 | MHC.CLN ---
F/U TF CURRENTLY ON HOLD AWAITING BM PER NSG-LACTULOSE GIVEN NSG ALSO REPORTED HIGH RESIDUALS 325CC TODAY-NOTED REGLAN GIVEN DISCUSSED AT ROUNDS WITH MD WHEN TF TO RESUME; RECOMMEND GLUCERNA AT MAX GOAL 50ML/HR WITH 30ML PROSOURCE BID AND 120CC WATER FLUSHES Q 4 HRS PROVIDES 1320KCALS (1735TOTAL KCALS WITH SEDATION; 31.5KCALS/KG ON CMW), 80G TOTAL PROTEIN (1.45G/KG BASED ON CMW), 1743CC TOTAL WATER FROM FORMULA AND FLUSHES (31.7ML/KG) START TF AT 10ML/HR AND INCREASE BY 10ML Q 4 HRS UNTIL MAX GOAL IS ACHIEVED CONTINUE TO MONITOR TOLERANCE, RESIDUALS AND LYTES
[2021-04-09 14:07] LABS: Glucose, Whole Blood 262 mg/dL (60-115)
[2021-04-09 17:56] LABS: Glucose, Whole Blood 234 mg/dL (60-115)
--- NOTE | 2021-04-09 18:32 | PC.NURSE ---
TMAX 101.3, MD NOTIFIED. URINE AND SPUTUM CULTURE ORDERED AND AWAITING SAMPLES/GUERRERO CLAMPED. BC X 2 COLLECTED EARLIER. LEVOPHED REMAINS ON. VERY SENSITIVE TO TITRATION. SEDATED WITH PROPOFOL, PRECEDEX, AND FENTANYL - SEE EMAR. FI02 INCREASED TO 40% TO MAINTAIN 02 > 90%. INSULIN GTT REMAINS ON AND TITRATED PER . LASIX GTT OFF AT 1000. URINE OUTPUT WNL. TUBE FEED REMAINS OFF, HIGH RESIDUALS. REGLAN ORDERED AND ADMINISTERED. NO BM - ONLY SMEARING. LACTULOSE ADMINISTERED AND NO EFFECT AT THIS TIME. Q2HR REPO, BATHED, BARRIER CREAM, PREVALON MATTRESS, WEDGES, AND HEELBOS. PICTURE OBTAINED TO LOWER LIP AND SENT TO WOUND NURSE - STAGE 1. FAMILY UPDATED BY THIS RN AND FACETIME SETUP FOR VISIT.
[2021-04-09] MEDS: Insulin Regular/NS 100 UNIT/100 ML PLAST..BAG IVCONT (19:55)
[2021-04-09] MEDS: Gabapentin 600 MG TABLET PO (19:56)
[2021-04-09 20:36] LABS: Appearance Urine CLEAR; Color Urine YELLOW; Glucose Urine UA NEG (NEG); Leukocyte Esterase Urine NEG (NEG); Nitrite Urine NEG (NEG); Specific Gravity - Urine 1.025 (1.005-1.025); UACC Culture Trigger NO; Urine Blood NEG (NEG); Urine Ketones NEG (NEG); Urine Protein 1+ MG/DL (NEG-TRACE)
[2021-04-09 20:45] LABS: Bacteria Urine 1+ /LPF; Mucus Urine TRACE /LPF; RBC Urine 0-2 /HPF (0); Squamous Epithelial Cell Urine 1+ /LPF; WBC Urine 0-2 /HPF (0-4)
[2021-04-09 22:10] LABS: Glucose, Whole Blood 205 mg/dL (60-115)
[2021-04-10] VITALS (32 sets, daily range): BP systolic 106–144; BP diastolic 49–70; PULSE 73–98; RESP 10–32; TEMP 37.9–39.1; O2SAT 91–99
[2021-04-10] MEDS: Metoclopramide HCl 10 MG/2 ML VIAL IVPUSH ×2 (00:04→05:37)
[2021-04-10] MEDS: Lactulose 20 GM/30 ML SOLUTION PO ×5 (00:04→20:14)
[2021-04-10] MEDS: 0.9 % Sodium Chloride Flush 3 ML SYRINGE IVFLUSH ×4 (00:05→23:26)
[2021-04-10] MEDS: methylPREDNISolone Sod Succ 40 MG/ML VIAL IVPUSH ×2 (00:05→12:23)
[2021-04-10] MEDS: propofoL 1,000 MG/100 ML VIAL 15.72 MG IVCONT (00:17)
[2021-04-10 02:52] LABS: Glucose, Whole Blood 159 mg/dL (60-115)
[2021-04-10] MEDS: fentaNYL citrate/NS 1,000 MCG/100 ML PLAST..BAG 10 MCG IVCONT ×2 (04:11→14:02)
[2021-04-10] MEDS: dexmedeTOMIDidine HCL/NS 400 MCG/100 ML INFUS..BTL 11.23 MCG IVCONT ×3 (04:12→20:59)
[2021-04-10 05:49] LABS: VBG Base Excess -2.6 mmol/L; VBG HCO3 22 mmol/L (22-26); VBG pCO2 36 mmHg; VBG pH 7.38 (7.32-7.43); VBG pO2 44 mmHg
[2021-04-10 05:50] LABS: Glucose, Whole Blood 172 mg/dL (60-115)
[2021-04-10 05:53] LABS: Hematocrit 40.5 % (37-47); Hemoglobin 12.2 g/dl (12.0-16.0); Mean Corpuscular HGB Conc 30.1 g/dl (31.0-35.0); Mean Corpuscular Hemoglobin 25.3 pg (27.0-33.0); Mean Platelet Volume 12.2 fL (9.4-12.3); Platelet Count 457 X10*3/uL (160-400); Red Blood Count 4.82 X10*6/uL (4.20-5.50); Red Cell Distribution Width 16.4 % (11.0-16.0); White Blood Count 18.2 X10*3/uL (4.8-10.8)
[2021-04-10 05:57] LABS: Venous Blood Gas Refer to POC result
[2021-04-10 06:23] LABS: Albumin Level 3.2 g/dL (3.5-5.0); Anion Gap 14 (12-20); Blood Urea Nitrogen 58 mg/dL (9-16); Calcium 9.8 mg/dL (8.4-10.2); Carbon Dioxide 25 mmol/L (22-29); Chloride 111 mmol/L (96-108); Creatinine Clr Calc Pharmacy 37.8; Estimated Glomerular Filt Rate 40; Glucose Random 169 mg/dL (60-115); Magnesium 2.9 mg/dL (1.6-2.6); Phosphorus 4.2 mg/dL (2.7-4.5); Potassium 4.6 mmol/L (3.3-5.1); Sodium 145 mmol/L (135-145)
[2021-04-10] MEDS: Thiamine HCL 100 MG TABLET 200 MG PO ×2 (07:28→20:13)
[2021-04-10] MEDS: Cholecalciferol (Vitamin D3) 25 MCG TABLET 50 MCG PO (07:28)
[2021-04-10] MEDS: Aspirin 325 MG TABLET PO (07:28)
[2021-04-10] MEDS: Famotidine 20 MG TABLET PO (07:28)
[2021-04-10] MEDS: Ascorbic Acid 500 MG TABLET 1000 MG PO (07:28)
[2021-04-10] MEDS: Atorvastatin Calcium 40 MG TABLET PO (07:28)
[2021-04-10] MEDS: ARIPiprazole 5 MG TABLET PO (07:29)
[2021-04-10] MEDS: Acetaminophen 325 MG TABLET 650 MG PO ×2 (07:29→17:35)
[2021-04-10] MEDS: Enoxaparin Sodium 40 MG/0.4 ML SYRINGE SUBCUT (07:30)
[2021-04-10] MEDS: Chlorhexidine Gluc Oral Rinse 15 ML MOUTHWASH BUCCAL ×3 (07:30→20:14)
[2021-04-10] MEDS: Acetylcysteine 10 % 400 MG/4 ML VIAL INHALE ×2 (07:45→11:19)
--- NOTE | 2021-04-10 09:59 | MHC.CLN ---
F/U TF CURRENTLY ON 20ML/HR STILL NO BM ONLY SMEARING PER NSG-LACTULOSE CONTINUES NSG REPORTED HIGH RESIDUALS 325CC YESTERDAY- REGLAN GIVEN NSG NOTED TOLERATING TF NOW WITH LOW RESIDUALS DISCUSSED AT ROUNDS WITH MD RECOMMEND GLUCERNA AT MAX GOAL 50ML/HR WITH 300CC WATER FLUSHES Q 4 HRS PROVIDES 1200KCALS (1318TOTAL KCALS WITH SEDATION; 24KCALS/KG ON CMW), 50G TOTAL PROTEIN (.9G/KG BASED ON CMW), 2823ML TOTAL WATER FROM FORMULA AND FLUSHES (38ML/KG BASED ON ABW) CONTINUE TO MONITOR TOLERANCE, RESIDUALS AND LYTES
[2021-04-10] MEDS: Sodium Chloride 0.45 % 1,000 ML 500 ML IVCONT (10:31)
[2021-04-10] MEDS: propofoL 1,000 MG/100 ML VIAL 4.49 MG IVCONT (10:31)
[2021-04-10 10:51] LABS: Glucose, Whole Blood 146 mg/dL (60-115)
[2021-04-10 14:01] LABS: Glucose, Whole Blood 182 mg/dL (60-115)
--- NOTE | 2021-04-10 15:58 | P.PNCC_ITS ---
Subjective Subjective Date of Service: 04/10/21 Interval History: Mrs. Clemons was transferred to the ICU on March 29 with acute respiratory failure secondary to COVID pneumonia. The patient is a 65 yo F with PMHx of the following: CAD, s/p PTCA and stent Mild , last echo EF 60-65% COPD HTN CVA Obesity Diabetes w diabetic polyneuropathy.? On insulin. Dyslipidemia GERD Headache Arthritis Osteopenia Solitary pulmonary nodule Non-toxic multinodular goiter Psychiatric dis. on abilify HISTORY OF PRESENT ILLNESS:? The patient was previously vaccinated for COVID.? The patient presented to the ED on March 26 complaining of severe shortness of breath x 1 day.? Had been diagnosed with COVID-19 on 03/21 after being symptomatic for the prior few weeks.? (I am estimating sx onset day as 03/19, but could be as much as a week or two earlier). In ED triage, SpO2 was high 60s on room air.? W/U was notable for BUN/creat 60/2.4 (baseline 17/0.8), moderate metabolic acidosis, albumin 3.3, and UTI w bacteremia that grew out Ecoli.? CXR showed classic COVID/viral pneunonia, mod erately severe.? Venous duplex and perfusion scans were negative. The patient was admitted to Medicine and started on steroids and ceftriaxone.? No remdesivir or other agents.? She was also very hyperglycemic, started on insulin.? Echo on 03/28 was basically normal, with normal RV, LV, IVC.? Course was complicated by severe metabolic encephalopathy with agitated delirium. On 03/29 she required tx to ICU bec of hypoxemia.? Required intubation and was li asuncion a few hours later.? Baricitinib was added to her regimen.? FiO2 declined progressively from the 100% range to 30% by Apr 05.? Renal indices also declined progressively, to a faith of 21/0.6 on Apr 04.? On Apr 04, the patient had to be reintubated for a tracheal tube change bec of concreted se cretions. Steroids were tapered to Decadron 5mg daily.? The patient failed weaning trials for the last five days.? On Apr 06, caspofungin and vancomycin were started bec of borderline sputums, but I d/c?d them the next day after further analysis showed no significant findings.? Urine culture from 04/05 grew out yeast and fluconazole one dose was given, but f/u U/A was negative, so fluconazole was d/c?d.? On 04/07, I upped her steroids to 40 mg bid, added Vit C and Vit D, and started her on an insulin drip.? On Apr 08 started vigorous diuresis to try to get her minute volume down, but by yesterday that showed no benefit so was d/c?d. Over the last three days, had been doing very well mental status-mandujano on light sedation with Precedex, plus her Abilify and gabapentin.? Added light propofol on Apr 08 in a further effort to decrease her minute volume, given that her pCO2 was low.? The propofol helped only a little.? So yesterday evening we added a fentanyl gtt and at 100ug/hr that brought her respiratory rate down into the high teens.? Also, yesterday, her white count bumped and she had a temperature to 101.? So we cultured her and started her on doxycycline. Overnite, she was changed to pressure support ventilation because of stacking and dyssynchrony.? Today the patient is moderately sedated on Precedex 0.6ug, propofol 5mg, fentanyl 50ug, and her Abilify and gabapentin.? She?s also on insulin 4 units/hour.? She is calm.? Heart rate 92, sinus rhythm.? Blood pressure 140/68, on Lisinopril.? On PSV+5/35%/+5, RR is 22, Vt 410cc, Ve 8.6L, PIP 21cm, ETCO2 35, and sat 94%.? CVBG this morning showed 7.38/36/-2.? Tmax 102.4.? No jugular venous distention with the head of bed at 20-30 degrees.? Chest is clear to auscultation, with a normal expiratory phase.? Heart tones are soft.? Abdomen is benign.? She has no peripheral edema. I/O balance = 4.8L positive. LABORATORY DATA:? As below.? Notably, WBC up to 18. ?BUN/creat significantly up to 58/1.3 (from 38/0.9 after diuresis), POCs high 100s on insulin drip. MICROBIOLOGY:? Urinalysis yesterday was negative.? Sputum Gram stain yesterday showed 4+polys and 4+ Gram-positive cocci; culture pending.? Blood cultures from yesterday show no growth after 24 hours. IMPRESSION:? 65-year-old lady with multiple medical problems, including coronary and lung disease, diabetes and psychiatric dis. 1. Underlying COPD. 2. Bilat COVID pneumonia.? Estimated symptom onset day 03/19 or earlier.? Now doing very well from an oxygenation point of view. ?Continue baricitinib x 14 days (today is day 14).? Added Vit C, Vit D, Pepcid, ASA, and thiamine on 04/07, and upped her steroids to Solumedrol 40 mg bid. 3. Hypoxemic respiratory failure, secondary to above.? No evidence of CHF (by BNP, and no JVD or edema).? We started her on Lasix bec of the high Ve, bec she was 5L positive.? Had no effect.? So we started her on a fentanyl gtt which had a marked improvement.? At this point, it seems likely that she will survive, but she may not escape without a tracheostomy.? Given her earlier course, she is not likely a candidate for extubation to BiPAP. 4. SUDEEP on admission -- likely 2? sepsis (urosepsis with bacteremia).? Renal indices came almost back to baseline.? Now elevated again bec of diuresis.? Stopped the Lasix yesterday and giving her back volume today. 5. Hyperglycemia.? Worsened 2? increased steroid dose.? On insulin drip. 6. Metabolic alakalosis.? Treated fully w Diamox.? D/C?d. 7. ID:? Looks like she probably has staph in her sputum.? We started her on doxycycline last night.? (Both MRSA and MSSA should be susceptible.) 8.? Neuro/psych.? Continue abilify and gabapentin.? Seems to have done well on Precedex alone.? Should be able to get the propofol off. 9. Nutrition.? On full dose glucerna tube feed.? High residuals yest morning, no stool.? Started her on lactulose and Reglan.? Lower residuals today.? No stool yet. Critical care time:? 60 min. Critical Care Time (minutes): 60 Physical Exam Vital Signs: Vital Signs: Last Vital Signs Temp 100.9 F H 04/10/21 15:00 Pulse 90 04/10/21 15:00 Resp 25 H 04/10/21 15:00 BP 140/68 H 04/10/21 15:00 Pulse Ox 94 04/10/21 15:00 Body Mass Index 32.2 Objective Data Labs CBC & Chem 7: 04/10/21 05:40 04/10/21 05:40 Labs: Laboratory Results - last 24 hr 04/09/21 04/09/21 04/09/21 17:41 19:49 22:04 WBC RBC Hgb Hct MCV MCH MCHC RDW Plt Count MPV Absolute Nucleated RBC Nucleated RBC % (auto) VBG pH VBG pCO2 VBG pO2 VBG HCO3 VBG O2 Saturation VBG Base Excess Sodium Potassium Chloride Carbon Dioxide Anion Gap BUN Creatinine Estim Creat Clear Calc Estimated GFR POC Glucose 234 H 205 H Random Glucose Calcium Phosphorus Magnesium Albumin Urine Color YELLOW Urine Appearance CLEAR Urine pH 6.0 Ur Specific [place] 1.025 Urine Protein 1+ H Urine Glucose (UA) NEG Urine Ketones NEG Urine Blood NEG Urine Nitrite NEG Ur Leukocyte Esterase NEG Urine RBC 0-2 Urine WBC 0-2 Ur Squamous Epith Cells 1+ Urine Bacteria 1+ Hyaline Casts 1-4 Urine Mucus TRACE 04/10/21 04/10/21 04/10/21 02:46 05:40 05:40 WBC 18.2 H RBC 4.82 Hgb 12.2 Hct 40.5 MCV 84.0 MCH 25.3 L MCHC 30.1 L RDW 16.4 H Plt Count 457 H MPV 12.2 Absolute Nucleated RBC 0.000 Nucleated RBC % (auto) 0.0 VBG pH VBG pCO2 VBG pO2 VBG HCO3 VBG O2 Saturation VBG Base Excess Sodium 145 Potassium 4.6 Chloride 111 H Carbon Dioxide 25 Anion Gap 14 BUN 58 H D Creatinine 1.32 Estim Creat Clear Calc 37.8 Estimated GFR 40 POC Glucose 159 H Random Glucose 169 H Calcium 9.8 Phosphorus 4.2 Magnesium 2.9 H Albumin 3.2 L Urine Color Urine Appearance Urine pH Ur Specific [place] Urine Protein Urine Glucose (UA) Urine Ketones Urine Blood Urine Nitrite Ur Leukocyte Esterase Urine RBC Urine WBC Ur Squamous Epith Cells Urine Bacteria Hyaline Casts Urine Mucus 04/10/21 04/10/21 04/10/21 05:41 05:44 10:39 WBC RBC Hgb Hct MCV MCH MCHC RDW Plt Count MPV Absolute Nucleated RBC Nucleated RBC % (auto) VBG pH 7.38 VBG pCO2 36 VBG pO2 44 VBG HCO3 22 VBG O2 Saturation 72.0 VBG Base Excess -2.6 Sodium Potassium Chloride Carbon Dioxide Anion Gap BUN Creatinine Estim Creat Clear Calc Estimated GFR POC Glucose 172 H 146 H Random Glucose Calcium Phosphorus Magnesium Albumin Urine Color Urine Appearance Urine pH Ur Specific [place] Urine Protein Urine Glucose (UA) Urine Ketones Urine Blood Urine Nitrite Ur Leukocyte Esterase Urine RBC Urine WBC Ur Squamous Epith Cells Urine Bacteria Hyaline Casts Urine Mucus 04/10/21 13:57 WBC RBC Hgb Hct MCV MCH MCHC RDW Plt Count MPV Absolute Nucleated RBC Nucleated RBC % (auto) VBG pH VBG pCO2 VBG pO2 VBG HCO3 VBG O2 Saturation VBG Base Excess Sodium Potassium Chloride Carbon Dioxide Anion Gap BUN Creatinine Estim Creat Clear Calc Estimated GFR POC Glucose 182 H Random Glucose Calcium Phosphorus Magnesium Albumin Urine Color Urine Appearance Urine pH Ur Specific [place] Urine Protein Urine Glucose (UA) Urine Ketones Urine Blood Urine Nitrite Ur Leukocyte Esterase Urine RBC Urine WBC Ur Squamous Epith Cells Urine Bacteria Hyaline Casts Urine Mucus Microbiology Microbiology Results: Microbiology 04/09/21 09:42 Blood - Venous Blood Culture - Preliminary No growth after 24 hours. 04/09/21 09:32 Blood - Venous Blood Culture - Preliminary No growth after 24 hours. 04/09/21 19:50 Sputum - Suctioned Gram Stain - Final 04/09/21 19:50 Sputum - Suctioned Sputum Culture - Preliminary Culture in progress. 04/05/21 07:25 Blood - Venous Blood Culture - Final No growth after 5 days. 04/05/21 07:25 Blood - Venous Blood Culture - Final No growth after 5 days. 04/05/21 08:42 Urine Catheterized - Rashid Catheter Urine Culture - Final Preethi glabrata 04/05/21 08:42 Sputum - Suctioned Gram Stain - Final 04/05/21 08:42 Sputum - Suctioned Sputum Culture - Final 04/01/21 14:28 Sputum - Suctioned Gram Stain - Final 04/01/21 14:28 Sputum - Suctioned Sputum Culture - Final Preethi albicans 03/26/21 16:43 Blood - Venous Blood Culture - Final No growth after 5 days. 03/27/21 Unknown Urine Catheterized - Rashid Catheter Urine Culture - Final Escherichia coli 03/26/21 16:43 Blood - Venous Blood Culture - Final Escherichia coli Quality Stroke Does the patient have a stroke diagnosis?: No VTE Prior VTE?: No VTE Risk Level:: Medical - moderate - high VTE Device Contraindication: Treatment Not Indicated VTE Drug Contraindication: N/A - Med Ordered Critical Care Time Critical Care Time (minutes): 60
[2021-04-10 17:17] LABS: Anion Gap 13 (12-20); Blood Urea Nitrogen 55 mg/dL (9-16); Carbon Dioxide 20 mmol/L (22-29); Chloride 113 mmol/L (96-108); Creatinine Clr Calc Pharmacy 43.1; Estimated Glomerular Filt Rate 47; Glucose Random 241 mg/dL (60-115); Potassium 4.2 mmol/L (3.3-5.1); Sodium 142 mmol/L (135-145)
[2021-04-10 17:33] LABS: Glucose, Whole Blood 230 mg/dL (60-115)
[2021-04-10] MEDS: Insulin Regular/NS 100 UNIT/100 ML PLAST..BAG IVCONT (17:36)
[2021-04-10] MEDS: Gabapentin 600 MG TABLET PO (20:13)
[2021-04-10 22:09] LABS: Glucose, Whole Blood 184 mg/dL (60-115)
[2021-04-10] MEDS: Sodium Chloride 0.45 % 1,000 ML 250 ML IVCONT (22:42)
[2021-04-11] VITALS (31 sets, daily range): BP systolic 99–168; BP diastolic 44–78; PULSE 64–130; RESP 16–40; TEMP 36.7–38.4; O2SAT 91–96
[2021-04-11] MEDS: methylPREDNISolone Sod Succ 40 MG/ML VIAL IVPUSH ×2 (00:55→11:36)
[2021-04-11 01:13] LABS: Glucose, Whole Blood 146 mg/dL (60-115)
[2021-04-11 03:03] LABS: Glucose, Whole Blood 162 mg/dL (60-115)
[2021-04-11 05:27] LABS: VBG Base Excess -5.4 mmol/L; VBG HCO3 20 mmol/L (22-26); VBG pCO2 38 mmHg; VBG pH 7.32 (7.32-7.43); VBG pO2 44 mmHg
[2021-04-11 05:36] LABS: Hematocrit 36.5 % (37-47); Mean Corpuscular HGB Conc 30.1 g/dl (31.0-35.0); Mean Corpuscular Hemoglobin 25.4 pg (27.0-33.0); Mean Corpuscular Volume 84.3 fL (80-98); Mean Platelet Volume 12.5 fL (9.4-12.3); Platelet Count 321 X10*3/uL (160-400); Red Blood Count 4.33 X10*6/uL (4.20-5.50); Red Cell Distribution Width 16.3 % (11.0-16.0); White Blood Count 11.8 X10*3/uL (4.8-10.8)
[2021-04-11 05:46] LABS: Lactic Acid 0.9 mmol/L (0.5-2.0)
[2021-04-11 06:03] LABS: Anion Gap 9 (12-20); Blood Urea Nitrogen 45 mg/dL (9-16); Calcium 8.6 mg/dL (8.4-10.2); Carbon Dioxide 24 mmol/L (22-29); Chloride 109 mmol/L (96-108); Creatinine Clr Calc Pharmacy 57.5; Estimated Glomerular Filt Rate > 60; Glucose Random 239 mg/dL (60-115); Phosphorus 3.5 mg/dL (2.7-4.5); Potassium 4.5 mmol/L (3.3-5.1); Sodium 137 mmol/L (135-145)
[2021-04-11] MEDS: dexmedeTOMIDidine HCL/NS 400 MCG/100 ML INFUS..BTL 11.23 MCG IVCONT (06:24)
[2021-04-11 06:29] LABS: Venous Blood Gas Refer to POC result
[2021-04-11 06:33] LABS: Glucose, Whole Blood 241 mg/dL (60-115)
[2021-04-11 06:33] LABS: Glucose, Whole Blood 265 mg/dL (60-115)
[2021-04-11 07:13] LABS: Glucose, Whole Blood 266 mg/dL (60-115)
[2021-04-11] MEDS: Chlorhexidine Gluc Oral Rinse 15 ML MOUTHWASH BUCCAL ×2 (07:49→20:29)
[2021-04-11] MEDS: ARIPiprazole 5 MG TABLET PO (07:49)
[2021-04-11] MEDS: Atorvastatin Calcium 40 MG TABLET PO (07:50)
[2021-04-11] MEDS: Aspirin 325 MG TABLET PO (07:50)
[2021-04-11] MEDS: Famotidine 20 MG TABLET PO (07:50)
[2021-04-11] MEDS: Cholecalciferol (Vitamin D3) 25 MCG TABLET 50 MCG PO (07:50)
[2021-04-11] MEDS: Enoxaparin Sodium 40 MG/0.4 ML SYRINGE SUBCUT (07:51)
[2021-04-11] MEDS: 0.9 % Sodium Chloride Flush 3 ML SYRINGE IVFLUSH ×2 (07:51→14:44)
[2021-04-11] MEDS: fentaNYL citrate/NS 1,000 MCG/100 ML PLAST..BAG 10 MCG IVCONT (07:56)
[2021-04-11] MEDS: Thiamine HCL 100 MG TABLET 200 MG PO ×2 (11:36→20:29)
[2021-04-11 11:45] LABS: Glucose, Whole Blood 266 mg/dL (60-115)
[2021-04-11 12:10] LABS: Glucose, Whole Blood 223 mg/dL (60-115)
--- NOTE | 2021-04-11 12:17 | MHC.CLN ---
F/U NSG REPORTED BM X 4 DISCUSSED AT ROUNDS WITH MD-NOW D/C WATER FLUSHES PT RECEIVING GLUCERNA AT MAX GOAL 50ML/HR PROVIDES 1200KCALS (1259TOTAL KCALS WITH SEDATION; 22.8KCALS/KG ON CMW), 50G TOTAL PROTEIN (.9G/KG BASED ON CMW), 1023ML TOTAL WATER FROM FORMULA NSG TOLERATING TF NOW WITH LOW RESIDUALS IF FREE WATER NEEDED; RECOMMEND 240ML Q SHIFT TO PROVIDE 1743ML TOTAL (31.7ML/KG FOR MAINTENANCE) CONTINUE TO MONITOR TOLERANCE, RESIDUALS AND LYTES
--- NOTE | 2021-04-11 14:10 | P.PNCC_ITS ---
Subjective Subjective Date of Service: 04/11/21 Interval History: Mrs. Clemons was transferred to the ICU on March 29 with acute respiratory failure secondary to COVID pneumonia. The patient is a 65 yo F with PMHx of the following: CAD, s/p PTCA and stent Mild , last echo EF 60-65% COPD HTN CVA Obesity Diabetes w diabetic polyneuropathy.? On insulin. Dyslipidemia GERD Headache Arthritis Osteopenia Solitary pulmonary nodule Non-toxic multinodular goiter Psychiatric dis. on abilify HISTORY OF PRESENT ILLNESS:? The patient was previously vaccinated for COVID.? The patient presented to the ED on March 26 complaining of severe shortness of breath x 1 day.? Had been diagnosed with COVID-19 on 03/21 after being symptomatic for the prior few weeks.? (I am estimating sx onset day as 03/19, but could be as much as a week or two earlier). In ED triage, SpO2 was high 60s on room air.? W/U was notable for BUN/creat 60/2.4 (baseline 17/0.8), moderate metabolic acidosis, albumin 3.3, and UTI w bacteremia that grew out Ecoli.? CXR showed classic COVID/viral pneunonia, mod erately severe.? Venous duplex and perfusion scans were negative. The patient was admitted to Medicine and started on steroids and ceftriaxone.? No remdesivir or other agents.? She was also very hyperglycemic, started on insulin.? Echo on 03/28 was basically normal, with normal RV, LV, IVC.? Course was complicated by severe metabolic encephalopathy with agitated delirium. On 03/29 she required tx to ICU bec of hypoxemia.? Required intubation and was li asuncion a few hours later.? Baricitinib was added to her regimen.? FiO2 declined progressively from the 100% range to 30% by Apr 05.? Renal indices also declined progressively, to a faith of 21/0.6 on Apr 04.? On Apr 04, the patient had to be reintubated for a tracheal tube change bec of concreted se cretions. Steroids were tapered to Decadron 5mg daily.? The patient failed weaning trials for the last five days.? On Apr 06, caspofungin and vancomycin were started bec of borderline sputums, but I d/c?d them the next day after further analysis showed no significant findings.? Urine culture from 04/05 grew out yeast and fluconazole one dose was given, but f/u U/A was negative, so fluconazole was d/c?d.? On 04/07, I upped her steroids to 40 mg bid, added Vit C and Vit D, and started her on an insulin drip.? On Apr 08 started vigorous diuresis to try to get her minute volume down, but that showed no benefit so was d/c?d. Over the last week, had been doing very well mental status-mandujano on light sedation with low dose Precedex, +/- low dose propofol, plus her Abilify and gabapentin.? But her RR and minute volume were too high to wean.? On 04/09, we added a fentanyl gtt that brought her respiratory rate down into the high teens.? That day, her white count bumped and she had a temperature to 101.? So we cultured her and started her on doxycycline. On 04/10, we switched her vent mode to pressure support because of stacking and dyssynchrony.? The patient has done well since then, with progressively lower levels of PS.? Today we turned the fentanyl off and the PSV down to +5.? She?s on Precedex 0.6ug, fentanyl 50ug, and her Abilify and gabapentin, ?She?s also on insulin 6 units/hour.? She is calm.? Heart rate 65, sinus rhythm.? Blood pressure 112/47, on Lisinopril.? On PSV+5/30%/+5, RR is 17, Vt 420cc, Ve 7L, ET CO2 34, and sat 95%.? CVBG this morning showed 7.32/38/-5.? Tmax down to 100.6.? No jugular venous distention with the head of bed at 20-30 degrees.? Chest is clear to auscultation, with a normal expiratory phase.? Heart tones are soft.? Abdomen is benign.? She has no peripheral edema. I/O balance = 7L positive. LABORATORY DATA:? As below.? Notably, WBC way down to 11. ?BUN/creat significantly down to 45/0.8, POCs mid 200s on insulin drip. MICROBIOLOGY:? Urinalysis 04/09 was negative.? Sputum Gram stain 04/09 showed 4+polys and 4+ Gram-positive cocci.? Culture is growing 4+ Staph aureus, S pending, and 4+ GNR, ID pending.? Blood cultures from 04/09 show no growth after 24 hours. IMPRESSION:? 65-year-old lady with multiple medical problems, including coronary and lung disease, diabetes and psychiatric dis. 1. Underlying COPD. 2. Bilat COVID pneumonia.? Estimated symptom onset day 03/19 or earlier.? Now doing very well from an oxygenation point of view.? Continue baricitinib one more day.? Added Vit C, Vit D, Pepcid, ASA, and thiamine on 04/07, and upped her steroids to Solumedrol 40 mg bid. 3. Hypoxemic respiratory failure, secondary to above.? Extubated to [place], doing well so far.? We?ve d/c?d the fentanyl.? She?s arousable and appropriately responsive with single words or a nod of the head (I had the dry mill worker here), but she looks like a limp rag doll.? I remain watchful and concerned. 4. SUDEEP on admission -- likely 2? sepsis (urosepsis with bacteremia).? Renal indices came almost back to baseline.? Elevated again bec of diuresis.? Stopped the Lasix, gave her back volume yesterday, and the indices are better today. 5. Hyperglycemia.? Worsened 2? increased steroid dose.? On insulin drip. 6. ID:? Started her on doxycycline 04/09.? Fever and WBC are down today and she came off the vent.? I bet that the GNR in her sputum is a colonizer/contaminant and doesn?t need treatment.? We?ll just stick with the doxy. 7.? Neuro/psych.? Continue abilify and gabapentin. Critical care time:? 70 min. Critical Care Time (minutes): 70 Physical Exam Vital Signs: Vital Signs: Last Vital Signs Temp 98.1 F 04/11/21 13:00 Pulse 64 04/11/21 13:00 Resp 20 04/11/21 13:00 BP 99/54 L 04/11/21 13:00 Pulse Ox 94 04/11/21 13:00 Body Mass Index 32.2 Objective Data Labs CBC & Chem 7: 04/11/21 05:25 04/11/21 05:25 Labs: Laboratory Results - last 24 hr 04/10/21 04/10/21 04/10/21 16:47 17:29 21:58 WBC RBC Hgb Hct MCV MCH MCHC RDW Plt Count MPV Absolute Nucleated RBC Nucleated RBC % (auto) VBG pH VBG pCO2 VBG pO2 VBG HCO3 VBG O2 Saturation VBG Base Excess Sodium 142 Potassium 4.2 Chloride 113 H Carbon Dioxide 20 L Anion Gap 13 BUN 55 H Creatinine 1.16 Estim Creat Clear Calc 43.1 Estimated GFR 47 POC Glucose 230 H 184 H Random Glucose 241 H Lactic Acid Calcium 9.0 D Phosphorus 04/11/21 04/11/21 04/11/21 00:58 02:55 05:06 WBC RBC Hgb Hct MCV MCH MCHC RDW Plt Count MPV Absolute Nucleated RBC Nucleated RBC % (auto) VBG pH VBG pCO2 VBG pO2 VBG HCO3 VBG O2 Saturation VBG Base Excess Sodium Potassium Chloride Carbon Dioxide Anion Gap BUN Creatinine Estim Creat Clear Calc Estimated GFR POC Glucose 146 H 162 H 241 H Random Glucose Lactic Acid Calcium Phosphorus 04/11/21 04/11/21 04/11/21 05:22 05:25 05:25 WBC 11.8 H RBC 4.33 Hgb 11.0 L Hct 36.5 L MCV 84.3 MCH 25.4 L MCHC 30.1 L RDW 16.3 H Plt Count 321 D MPV 12.5 H Absolute Nucleated RBC 0.000 Nucleated RBC % (auto) 0.0 VBG pH 7.32 VBG pCO2 38 VBG pO2 44 VBG HCO3 20 L VBG O2 Saturation 71.0 VBG Base Excess -5.4 Sodium 137 Potassium 4.5 Chloride 109 H Carbon Dioxide 24 Anion Gap 9 L BUN 45 H Creatinine 0.87 Estim Creat Clear Calc 57.5 Estimated GFR > 60 POC Glucose Random Glucose 239 H Lactic Acid Calcium 8.6 Phosphorus 3.5 04/11/21 04/11/21 04/11/21 05:25 05:58 06:52 WBC RBC Hgb Hct MCV MCH MCHC RDW Plt Count MPV Absolute Nucleated RBC Nucleated RBC % (auto) VBG pH VBG pCO2 VBG pO2 VBG HCO3 VBG O2 Saturation VBG Base Excess Sodium Potassium Chloride Carbon Dioxide Anion Gap BUN Creatinine Estim Creat Clear Calc Estimated GFR POC Glucose 265 H 266 H Random Glucose Lactic Acid 0.9 Calcium Phosphorus 04/11/21 04/11/21 08:00 11:50 WBC RBC Hgb Hct MCV MCH MCHC RDW Plt Count MPV Absolute Nucleated RBC Nucleated RBC % (auto) VBG pH VBG pCO2 VBG pO2 VBG HCO3 VBG O2 Saturation VBG Base Excess Sodium Potassium Chloride Carbon Dioxide Anion Gap BUN Creatinine Estim Creat Clear Calc Estimated GFR POC Glucose 266 H 223 H Random Glucose Lactic Acid Calcium Phosphorus Microbiology Microbiology Results: Microbiology 04/09/21 19:50 Sputum - Suctioned Gram Stain - Final 04/09/21 19:50 Sputum - Suctioned Sputum Culture - Preliminary Staphylococcus aureus Gram negative josiane 04/09/21 09:42 Blood - Venous Blood Culture - Preliminary No growth after 48 hours. 04/09/21 09:32 Blood - Venous Blood Culture - Preliminary No growth after 48 hours. 04/05/21 07:25 Blood - Venous Blood Culture - Final No growth after 5 days. 04/05/21 07:25 Blood - Venous Blood Culture - Final No growth after 5 days. 04/05/21 08:42 Urine Catheterized - Rashid Catheter Urine Culture - Final Preethi glabrata 04/05/21 08:42 Sputum - Suctioned Gram Stain - Final 04/05/21 08:42 Sputum - Suctioned Sputum Culture - Final 04/01/21 14:28 Sputum - Suctioned Gram Stain - Final 04/01/21 14:28 Sputum - Suctioned Sputum Culture - Final Preethi albicans 03/26/21 16:43 Blood - Venous Blood Culture - Final No growth after 5 days. 03/27/21 Unknown Urine Catheterized - Rashid Catheter Urine Culture - Final Escherichia coli 03/26/21 16:43 Blood - Venous Blood Culture - Final Escherichia coli Quality Stroke Does the patient have a stroke diagnosis?: No VTE Prior VTE?: No VTE Risk Level:: Medical - moderate - high VTE Device Contraindication: Treatment Not Indicated VTE Drug Contraindication: N/A - Med Ordered Critical Care Time Critical Care Time (minutes): 60
--- NOTE | 2021-04-11 14:29 | MHC.CM.PN ---
Pt remains intubated secondary to COVID: FiO2 requirements now at 30 and pt is approaching extubation territory per MD. MD is encouraged by pt's labs and overall improvement in respiratory fx as well as + effects from sedation reduction. Pt may not need a trach as previously thought by MD. Original d/c plan was for a return to home with family vs LTAC, however, if pt can successfully extubate without high O2 needs, she would be able to transfer to a SNF. Will await extubation: actual or attempts for further d/c planning guidance Potential SNF barriers: No HCP or COVID vax, high O2 needs
[2021-04-11] MEDS: Insulin Regular/NS 100 UNIT/100 ML PLAST..BAG 6 UNIT IVCONT (14:44)
[2021-04-11 16:00] LABS: Glucose, Whole Blood 157 mg/dL (60-115)
[2021-04-11 16:41] LABS: VBG Base Excess -2.2 mmol/L; VBG HCO3 22 mmol/L (22-26); VBG pCO2 39 mmHg; VBG pH 7.36 (7.32-7.43); VBG pO2 56 mmHg
[2021-04-11 16:45] LABS: Venous Blood Gas Refer to POC result
[2021-04-11] MEDS: fentaNYL citrate/NS 1,000 MCG/100 ML PLAST..BAG 2.5 MCG IVCONT (17:32)
[2021-04-11] MEDS: fentaNYL citrate/PF 100 MCG/2 ML VIAL 25 MCG IVPUSH (17:32)
[2021-04-11 19:01] LABS: Glucose, Whole Blood 134 mg/dL (60-115)
--- NOTE | 2021-04-11 19:36 | PC.NURSE ---
tmax 99.3, vss. Pt extubated at 1315, tolerating highflow well.Productive cough, occasionally needs suctioning orally. Pt able to nod yes/no with grounds maintenance manager at bedside, drowsy. U/o wn;, 3 BM today, bath given, repo q2hr, prevalon mattress used. Family updated over phone.
[2021-04-11] MEDS: Gabapentin 600 MG TABLET PO (20:29)
[2021-04-11 20:56] LABS: Glucose, Whole Blood 155 mg/dL (60-115)
[2021-04-11 23:42] LABS: Glucose, Whole Blood 136 mg/dL (60-115)
[2021-04-12] VITALS (33 sets, daily range): BP systolic 118–182; BP diastolic 36–96; PULSE 97–126; RESP 15–44; TEMP 37.2–38.8; O2SAT 92–99
[2021-04-12] MEDS: methylPREDNISolone Sod Succ 40 MG/ML VIAL IVPUSH (00:57)
[2021-04-12] MEDS: 0.9 % Sodium Chloride Flush 3 ML SYRINGE IVFLUSH ×4 (00:57→23:54)
[2021-04-12 01:18] LABS: Glucose, Whole Blood 129 mg/dL (60-115)
--- NOTE | 2021-04-12 02:35 | PC.NURSE ---
Pt has been lethargic and mostly sleeping since this RN assumed care at 1900. She awakens to name and opens eyes to track and follow. Very weakly follows simple commands such as squeezing my hand when asked to do so. Heart rate 110's-120's sinus tach. BP stable 140's/50's. Resp rate 30's-40 until fentanyl drip was increased to 50 mcg/hr per Codi Alvin ACOSTA. Resp rate came down to 18-20's after upping fentanyl. Rate will still go up with interventions/activity. Temp elevated to 101.8. IV tylenol given X1 dose per PA Codi. Pt not awake enough for swallow eval at this time. HOB is up 45-60 degrees. Pt has vomitted X2 after excessively coughing. Was suctioned nasally and orally for sm to mod amount of white/paul sputum. Lungs with crackles right base. U/O is good 50-100 ml/hr.
[2021-04-12 03:12] LABS: Glucose, Whole Blood 148 mg/dL (60-115)
[2021-04-12 05:21] LABS: Glucose, Whole Blood 173 mg/dL (60-115)
[2021-04-12 05:23] LABS: VBG HCO3 29 mmol/L (22-26); VBG pCO2 42 mmHg; VBG pH 7.45 (7.32-7.43); VBG pO2 52 mmHg
[2021-04-12 05:23] LABS: Hematocrit 37.4 % (37-47); Hemoglobin 11.4 g/dl (12.0-16.0); Mean Corpuscular HGB Conc 30.5 g/dl (31.0-35.0); Mean Corpuscular Hemoglobin 24.9 pg (27.0-33.0); Mean Corpuscular Volume 81.7 fL (80-98); Mean Platelet Volume 11.8 fL (9.4-12.3); Platelet Count 358 X10*3/uL (160-400); Red Blood Count 4.58 X10*6/uL (4.20-5.50); Red Cell Distribution Width 15.9 % (11.0-16.0); White Blood Count 13.7 X10*3/uL (4.8-10.8)
[2021-04-12 05:40] LABS: Venous Blood Gas Refer to POC result
[2021-04-12 05:48] LABS: Albumin Level 2.8 g/dL (3.5-5.0); Anion Gap 11 (12-20); Blood Urea Nitrogen 36 mg/dL (9-16); Carbon Dioxide 27 mmol/L (22-29); Chloride 109 mmol/L (96-108); Creatinine Clr Calc Pharmacy 67.5; Estimated Glomerular Filt Rate > 60; Glucose Random 194 mg/dL (60-115); Magnesium 2.2 mg/dL (1.6-2.6); Phosphorus 1.8 mg/dL (2.7-4.5); Potassium 3.9 mmol/L (3.3-5.1); Sodium 143 mmol/L (135-145)
[2021-04-12 06:55] LABS: Glucose, Whole Blood 187 mg/dL (60-115)
[2021-04-12] MEDS: Doxycycline Hyclate 100 MG in 0.9 % Sodium Chloride 250 ML 166.67 MG IV ×2 (08:07→19:34)
[2021-04-12] MEDS: Enoxaparin Sodium 40 MG/0.4 ML SYRINGE SUBCUT (08:08)
[2021-04-12] MEDS: Chlorhexidine Gluc Oral Rinse 15 ML MOUTHWASH BUCCAL ×3 (08:08→21:12)
[2021-04-12 09:02] LABS: Glucose, Whole Blood 154 mg/dL (60-115)
[2021-04-12 13:29] LABS: Glucose, Whole Blood 180 mg/dL (60-115)
[2021-04-12] MEDS: Metoprolol Tartrate 25 MG TABLET G-TUBE (13:34)
[2021-04-12] MEDS: methylPREDNISolone Sod Succ 40 MG/ML VIAL 20 MG IVPUSH (13:35)
[2021-04-12] MEDS: modafiniL 100 MG TABLET G-TUBE (13:35)
[2021-04-12] MEDS: fentaNYL citrate/PF 100 MCG/2 ML VIAL 25 MCG IVPUSH (13:41)
--- NOTE | 2021-04-12 13:44 | P.PNCC_ITS ---
Subjective Subjective Date of Service: 04/12/21 Interval History: Mrs. Clemons was transferred to the ICU on March 29 with acute respiratory failure secondary to COVID pneumonia. The patient is a 65 yo F with PMHx of the following: CAD, s/p PTCA and stent Mild , last echo EF 60-65% COPD HTN CVA Obesity Diabetes w diabetic polyneuropathy.? On insulin. Dyslipidemia GERD Headache Arthritis Osteopenia Solitary pulmonary nodule Non-toxic multinodular goiter Psychiatric dis. on abilify HISTORY OF PRESENT ILLNESS:? The patient was previously vaccinated for COVID.? The patient presented to the ED on March 26 complaining of severe shortness of breath x 1 day.? Had been diagnosed with COVID-19 on 03/21 after being symptomatic for the prior few weeks.? (I am estimating sx onset day as 03/19, but could be as much as a week or two earlier). In ED triage, SpO2 was high 60s on room air.? W/U was notable for BUN/creat 60/2.4 (baseline 17/0.8), moderate metabolic acidosis, albumin 3.3, and UTI w bacteremia that grew out Ecoli.? CXR showed classic COVID/viral pneunonia, moderately severe.? Venous duplex and perfusion scans were negative. The patient was admitted to Medicine and started on steroids and ceftriaxone.? No remdesivir or other agents.? She was also very hyperglycemic, started on insulin.? Echo on 03/28 was basically normal, with normal RV, LV, IVC.? Course was complicated by severe metabolic encephalopathy with agitated delirium. On 03/29 she required tx to ICU bec of hypoxemia.? Required intubation a few hours later.? Baricitinib was added to her regimen.? FiO2 declined progressively from the 100% range to 30% by Apr 05.? Renal indices also declined progressively, to a faith of 21/0.6 on Apr 04.? On Apr 04, the patient had to have a tracheal tube change bec of concreted secretions. Steroids were tapered to Decadron 5mg daily.? The patient initially failed weaning trials.? On 04/07, I upped her steroids to 40 mg bid, added Vit C and Vit D, and started her on an insulin drip.? On Apr 08 we diuresed her vigorously for one day, but that was stopped bec it made no difference in her ventilatory parameters and made her renal indices rise. Over the last week, had been doing very well mental status-mandujano on light sedation with low dose Precedex, +/- low dose propofol, plus her Abilify and gabapentin.? But her RR and minute volume were too high to wean.? On 04/09, we added a fentanyl gtt.? That brought her respiratory rate down into the high teens.? That day, her white count bumped and she had a temperature to 101.? She was cultured and started on doxycycline. ?Sputum Gram stain showed 4+ polys with 4+ Gram-positive cocci.? She grew out MSSA and Acinetobacter.? I did not treat the GNR. We turned off all her sedation yesterday, including the fentanyl, weaned her pressure support, and extubated her about mid day with no incident.? Later on the day her respiratory rate and work of breathing eduardo slightly, so I restarted the fentanyl at 25 up.? She?s been very weak, not moving around at all, not talking. This morning, she remains on the fentanyl at 25ug.? She is also on insulin at 2 units/hour. ?She?s very weak, able to lift her arms off the bed on command, but nothing more than that.? (Motor fxn about 07/02.)? Able to move her feet to command, but not lift her legs.? Clearly understands us and nods her head weakly or tries to mouth a word, but no sound comes out.? She is very calm.? We noticed that her upper right front tooth is missing.? [We spoke to the nurse and RT who extubated her yesterday and neither one noticed it come out during the extubation.]? On HFNC 50L/45%, RR was 24, SpO2 99%.? This morning?s CVBG showed 7.45/42/+5. ?I dropped the fiO2 to 34%, Sat was 95%.? I tried giving her a te aspoon of apple juice.? She was barely able to manage one swallow, and it took 15-20 secs.? So we put a 10Fr Kaofeed tube down for meds and feeding.? She is calm.? Heart rate 101, BP 156/57.? Tmax was 101.8 late last nite.? No jugular venous distention with the head of bed at 20-30 degrees.? Chest had diminished BS, some course crackles. Normal expiratory phase.? Heart tones are soft.? Abdomen is benign.? She has no peripheral edema. I/O balance = 6L positive. LABORATORY DATA:? As below.? Notably, WBC up sl to 13. ?BUN/creat down to 36/0.7 (45/0.8 yesterday.? With the tube feeds off, POCs are high 200s on insulin drip down to 2u/hr. MICROBIOLOGY:? Urinalysis 04/09 was negative.? Sputum Gram stain 04/09 showed 4+polys and 4+ Gram-positive cocci.? Culture is growing 4+ MSSA and 4+ Acinetobacter.? Blood cultures from 04/09 show no growth. IMPRESSION:? 65-year-old lady with multiple medical problems, including coronary and lung disease, diabetes and psychiatric dis. 1. Underlying COPD. 2. Bilat COVID pneumonia.? Estimated symptom onset day 03/19 or earlier.? Now doing well from an oxygenation point of view.? Today is last day of baricitinib.? Added Vit C, Vit D, Pepcid, ASA, and thiamine, and upped her steroids to Solumedrol 40 mg bid on Apr 07.? Today cut her steroids down to Solu-Medrol 20 mg bid. 3. Hypoxemic respiratory failure, secondary to above.? Extubated to [place].? Resp status is now tenuous, likely 2? ICU myopathy.? I remain watchful and concerned.? It is not unlikely that she will need reintubation and tracheostomy. 4. SUDEEP on admission -- likely 2? sepsis (urosepsis with bacteremia).? Renal indices came almost back to baseline.? Elevated again bec of diuresis.? Stopped the Lasix, gave her back volume, renal indices now coming back down. 5. Hyperglycemia.? Worsened 2? increased steroid dose.? On insulin drip.? Restarting her tube feed, will have to go up on the drip. 6. ID:? Started her on doxycycline 04/09.? Fever and WBC came down and she came off the vent.? Originally thought that the GNR in her sputum was a colonizer/contaminant and doesn?t need treatment.? But now she respiked a temp and WBC is up slightly.? I?ve asked Muna Martinez to weigh in. 7. Neuro/psych.? 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 No reason to think that she?s had a stroke.? Discussed with pharmacy, I will stop her Abilify and gabapentin, start Provigil. 8. Nutrition.? Placed a Kaofeed tube.? Continue Glucerna, goal rate 50cc/hr. Critical care time (mult visits to the bedside to reassess neuro and ventilatory status):? 70 min. Critical Care Time (minutes): 70 Physical Exam Vital Signs: Vital Signs: Last Vital Signs Temp 99.7 F 04/12/21 13:00 Pulse 116 H 04/12/21 13:34 Resp 44 H 04/12/21 13:41 BP 170/67 H 04/12/21 13:34 Pulse Ox 92 04/12/21 13:00 Body Mass Index 32.2 Objective Data Labs CBC & Chem 7: 04/12/21 05:10 04/12/21 05:10 Labs: Laboratory Results - last 24 hr 04/11/21 04/11/21 04/11/21 15:56 16:36 18:58 WBC RBC Hgb Hct MCV MCH MCHC RDW Plt Count MPV Absolute Nucleated RBC Nucleated RBC % (auto) VBG pH 7.36 VBG pCO2 39 VBG pO2 56 VBG HCO3 22 VBG O2 Saturation 86.0 VBG Base Excess -2.2 Sodium Potassium Chloride Carbon Dioxide Anion Gap BUN Creatinine Estim Creat Clear Calc Estimated GFR POC Glucose 157 H 134 H Random Glucose Calcium Phosphorus Magnesium Albumin 04/11/21 04/11/21 04/12/21 20:53 23:38 01:10 WBC RBC Hgb Hct MCV MCH MCHC RDW Plt Count MPV Absolute Nucleated RBC Nucleated RBC % (auto) VBG pH VBG pCO2 VBG pO2 VBG HCO3 VBG O2 Saturation VBG Base Excess Sodium Potassium Chloride Carbon Dioxide Anion Gap BUN Creatinine Estim Creat Clear Calc Estimated GFR POC Glucose 155 H 136 H 129 H Random Glucose Calcium Phosphorus Magnesium Albumin 04/12/21 04/12/21 04/12/21 03:08 05:05 05:10 WBC 13.7 H RBC 4.58 Hgb 11.4 L Hct 37.4 MCV 81.7 MCH 24.9 L MCHC 30.5 L RDW 15.9 Plt Count 358 MPV 11.8 Absolute Nucleated RBC 0.000 Nucleated RBC % (auto) 0.0 VBG pH VBG pCO2 VBG pO2 VBG HCO3 VBG O2 Saturation VBG Base Excess Sodium Potassium Chloride Carbon Dioxide Anion Gap BUN Creatinine Estim Creat Clear Calc Estimated GFR POC Glucose 148 H 173 H Random Glucose Calcium Phosphorus Magnesium Albumin 04/12/21 04/12/21 04/12/21 05:10 05:18 06:50 WBC RBC Hgb Hct MCV MCH MCHC RDW Plt Count MPV Absolute Nucleated RBC Nucleated RBC % (auto) VBG pH 7.45 H VBG pCO2 42 VBG pO2 52 VBG HCO3 29 H VBG O2 Saturation 84.0 VBG Base Excess 5.0 Sodium 143 Potassium 3.9 Chloride 109 H Carbon Dioxide 27 Anion Gap 11 L BUN 36 H Creatinine 0.74 Estim Creat Clear Calc 67.5 Estimated GFR > 60 POC Glucose 187 H Random Glucose 194 H Calcium 9.0 Phosphorus 1.8 L Magnesium 2.2 Albumin 2.8 L 04/12/21 04/12/21 08:57 13:25 WBC RBC Hgb Hct MCV MCH MCHC RDW Plt Count MPV Absolute Nucleated RBC Nucleated RBC % (auto) VBG pH VBG pCO2 VBG pO2 VBG HCO3 VBG O2 Saturation VBG Base Excess Sodium Potassium Chloride Carbon Dioxide Anion Gap BUN Creatinine Estim Creat Clear Calc Estimated GFR POC Glucose 154 H 180 H Random Glucose Calcium Phosphorus Magnesium Albumin Microbiology Microbiology Results: Microbiology 04/09/21 19:50 Sputum - Suctioned Gram Stain - Final 04/09/21 19:50 Sputum - Suctioned Sputum Culture - Final Staphylococcus aureus Acinetobacter baumannii 04/09/21 09:42 Blood - Venous Blood Culture - Preliminary No growth after 48 hours. 04/09/21 09:32 Blood - Venous Blood Culture - Preliminary No growth after 48 hours. 04/05/21 07:25 Blood - Venous Blood Culture - Final No growth after 5 days. 04/05/21 07:25 Blood - Venous Blood Culture - Final No growth after 5 days. 04/05/21 08:42 Urine Catheterized - Rashid Catheter Urine Culture - Final Preethi glabrata 04/05/21 08:42 Sputum - Suctioned Gram Stain - Final 04/05/21 08:42 Sputum - Suctioned Sputum Culture - Final 04/01/21 14:28 Sputum - Suctioned Gram Stain - Final 04/01/21 14:28 Sputum - Suctioned Sputum Culture - Final Preethi albicans 03/26/21 16:43 Blood - Venous Blood Culture - Final No growth after 5 days. 03/27/21 Unknown Urine Catheterized - Rashid Catheter Urine Culture - Final Escherichia coli 03/26/21 16:43 Blood - Venous Blood Culture - Final Escherichia coli Quality Stroke Does the patient have a stroke diagnosis?: No VTE Prior VTE?: No VTE Risk Level:: Medical - moderate - high VTE Device Contraindication: Treatment Not Indicated VTE Drug Contraindication: N/A - Med Ordered Critical Care Time Critical Care Time (minutes): 60
[2021-04-12] MEDS: fentaNYL citrate/NS 1,000 MCG/100 ML PLAST..BAG 2.5 MCG IVCONT (13:59)
[2021-04-12] MEDS: Insulin Regular/NS 100 UNIT/100 ML PLAST..BAG IVCONT (13:59)
[2021-04-12] MEDS: Sodium,Potassium Phosphates POWD.PACK 2 PACKET G-TUBE ×2 (15:33→21:11)
[2021-04-12] MEDS: Metoclopramide HCl 10 MG/2 ML VIAL IVPUSH ×2 (16:19→21:11)
[2021-04-12 18:15] LABS: Glucose, Whole Blood 83 mg/dL (60-115)
[2021-04-12] MEDS: Dextrose 5 % and 0.45 % NaCl 1,000 ML 60 ML IVCONT (18:31)
--- NOTE | 2021-04-12 18:47 | PC.NURSE ---
TMAX 99.9, VSS. ST ON TELE. 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 PATIENT RESPONDS TO NAME, DOES TRACK WHEN YOU SPEAK TO HER. DOES NOT VERBALLY ANSWER QUESTIONS. VERY SLOW NOD YES OR NO TO QUESTIONS. FOLLOWS SIMPLE COMMANDS WITH STRONG ENCOURAGEMENT. START OF SHIFT 02 CHANGED TO 5L NC AT 1100. WOB INCREASED AND CHANGED BACK TO HIGH FLOW 40L/40% AT 1400. FAILED SWALLOW EVAL BY RN AND MD. KO FEED PLACED IN RIGHT NARE BY MD. TUBE FEEDS RESUMED AT 1400 GLUCERNA AT 20 ML/HR. ONE HOUR LATER PATIENT PROJECTILE VOMITED LARGE AMOUNT OF BROWN BILE. MD NOTIFIED. TUBE FEEDS TURNED OFF. POC AT 1800 WAS 83. MD NOTIFIED. INSULIN GTT TURNED OFF. D5 1/2NS AT 6 ML/HR X 4 HOURS ORDERD, RECHECK POC ONE HOUR AFTER FLUIDS STARTED: POC DUE AT 1930. AT START OF SHIFT FRONT RIGHT INCISOR NOTED TO BE ?MISSING. PICTURE OBTAINED AND PLACED IN CHART. MD AND HOME HEALTH TRAVEL PT MADE AWARE. TLC DRESSING NEEDED TO BE CHANGED AFTER VOMITTING. PEELING AND PINK SKIN NOTED ON EDGE OF DRESSING. PICTURE OBTAINED AND PLACED IN CAHRT. NEW TLC DRESSING NOT PLACED ON PINK SKIN. BARRIER CREAM APPLIED. PATIENT DAUGHTER TOO BLAND HAS BEEN UNREACHABLE X 2 DAYS. SECOND HCP [facility] CALLED BY AND GIVEN UPDATE. FAMILY NOTIFIED OF TOOTH. TOO BLAND CALLED AND GAVE AN UPDATED NUMBER: [phone], NUMBER ADDED TO COMMENT SECTION. ALSO UPDATED BY MD AND RN. SET UP FACETIME FOR PATIENT AND FAMILY.
[2021-04-12 19:36] LABS: Glucose, Whole Blood 154 mg/dL (60-115)
[2021-04-12] MEDS: Thiamine HCL 100 MG TABLET 200 MG PO (21:11)
[2021-04-12] MEDS: cefEPime HCl 2 GM in 0.9 % Sodium Chloride 50 ML IV (21:12)
[2021-04-12] MEDS: Fluconazole in NaCl,Iso-Osm 200 MG/100 ML PIGGYBACK 100 MG IV (21:13)
[2021-04-12] MEDS: Metoprolol Tartrate 5 MG/5 ML VIAL IVPUSH (21:48)
[2021-04-12 22:01] LABS: Glucose, Whole Blood 227 mg/dL (60-115)
[2021-04-12 23:10] LABS: Appearance Urine CLEAR; Color Urine YELLOW; Glucose Urine UA 100 MG/DL (NEG); Leukocyte Esterase Urine NEG (NEG); Nitrite Urine NEG (NEG); Specific Gravity - Urine 1.015 (1.005-1.025); UACC Culture Trigger NO; Urine Blood 3+ (NEG); Urine Ketones 15 MG/DL (NEG); Urine Protein 1+ MG/DL (NEG-TRACE)
[2021-04-12 23:18] LABS: RBC Urine 30-49 /HPF (0); WBC Urine 0-2 /HPF (0-4)
[2021-04-12 23:19] LABS: Bacteria Urine TRACE /LPF; Squamous Epithelial Cell Urine TRACE /LPF
[2021-04-13] VITALS (33 sets, daily range): BP systolic 121–178; BP diastolic 57–82; PULSE 110–131; RESP 14–32; TEMP 37.3–38.5; O2SAT 91–96
[2021-04-13] LABS: Glucose, Whole Blood 169 mg/dL (60-115)
[2021-04-13] MEDS: methylPREDNISolone Sod Succ 40 MG/ML VIAL 20 MG IVPUSH ×2 (01:06→13:23)
[2021-04-13 01:19] LABS: Glucose, Whole Blood 158 mg/dL (60-115)
--- NOTE | 2021-04-13 02:28 | PC.NURSE ---
Pt continues to be lethargic, arousable to verbal stimuli and able to weakly follow simple commands. Pt continues on high flow 40L, 40% maintaining spO2 >90%. Sinus tach on tele 110-120s, BP elevated 160s systolic. 5 mg IV lopressor administered with little effect. Temperature up to 101.3. IV tylenol administered, temp down to 100.2. Blood and urine cultures collected and sent. Awaiting to collect sputum culture. Insulin gtt running at 1 unit/hr, titrating per PA. Tube feedings currently held. Fentanyl running at 25 mcg/hr. RR 20-30s, pt resting comfortably with eyes closed.
[2021-04-13] MEDS: Metoclopramide HCl 10 MG/2 ML VIAL IVPUSH ×2 (03:27→09:37)
[2021-04-13 03:41] LABS: Glucose, Whole Blood 176 mg/dL (60-115)
[2021-04-13] MEDS: cefEPime HCl 2 GM in 0.9 % Sodium Chloride 50 ML IV ×2 (04:42→13:23)
[2021-04-13 05:22] LABS: VBG Base Excess 5.6 mmol/L; VBG HCO3 27 mmol/L (22-26); VBG pCO2 30 mmHg; VBG pH 7.56 (7.32-7.43); VBG pO2 64 mmHg
[2021-04-13 05:25] LABS: Venous Blood Gas Refer to POC result
[2021-04-13 05:35] LABS: Hematocrit 37.9 % (37-47); Hemoglobin 11.6 g/dl (12.0-16.0); Mean Corpuscular HGB Conc 30.6 g/dl (31.0-35.0); Mean Corpuscular Hemoglobin 25.3 pg (27.0-33.0); Mean Corpuscular Volume 82.6 fL (80-98); Mean Platelet Volume 12.1 fL (9.4-12.3); Platelet Count 317 X10*3/uL (160-400); Red Blood Count 4.59 X10*6/uL (4.20-5.50); Red Cell Distribution Width 15.9 % (11.0-16.0); White Blood Count 11.1 X10*3/uL (4.8-10.8)
[2021-04-13 05:56] LABS: Glucose, Whole Blood 228 mg/dL (60-115)
[2021-04-13 06:16] LABS: Anion Gap 11 (12-20); Blood Urea Nitrogen 30 mg/dL (9-16); Calcium 8.7 mg/dL (8.4-10.2); Carbon Dioxide 29 mmol/L (22-29); Chloride 109 mmol/L (96-108); Creatinine Clr Calc Pharmacy 76.9; Estimated Glomerular Filt Rate > 60; Glucose Random 229 mg/dL (60-115); Magnesium 2.1 mg/dL (1.6-2.6); Phosphorus 2.3 mg/dL (2.7-4.5); Potassium 4.4 mmol/L (3.3-5.1); Sodium 145 mmol/L (135-145)
[2021-04-13] MEDS: modafiniL 100 MG TABLET 200 MG G-TUBE (07:59)
[2021-04-13] MEDS: Atorvastatin Calcium 40 MG TABLET PO (07:59)
[2021-04-13] MEDS: Doxycycline Hyclate 100 MG in 0.9 % Sodium Chloride 250 ML 166.67 MG IV ×2 (07:59→19:31)
[2021-04-13] MEDS: 0.9 % Sodium Chloride Flush 3 ML SYRINGE IVFLUSH ×3 (07:59→23:19)
[2021-04-13] MEDS: Thiamine HCL 100 MG TABLET 200 MG PO ×2 (08:00→19:57)
[2021-04-13] MEDS: Famotidine 20 MG TABLET PO (08:00)
[2021-04-13] MEDS: Chlorhexidine Gluc Oral Rinse 15 ML MOUTHWASH BUCCAL ×2 (08:00→14:40)
[2021-04-13] MEDS: Aspirin 325 MG TABLET PO (08:00)
[2021-04-13] MEDS: Cholecalciferol (Vitamin D3) 25 MCG TABLET 50 MCG PO (08:00)
[2021-04-13] MEDS: Enoxaparin Sodium 40 MG/0.4 ML SYRINGE SUBCUT (08:01)
[2021-04-13 08:14] LABS: Glucose, Whole Blood 228 mg/dL (60-115)
--- NOTE | 2021-04-13 11:03 | PM.CCPN ---
Subjective Subjective Date of Service: 04/13/21 Interval History: Mrs. Clemons was transferred to the ICU on March 29 with acute respiratory failure secondary to COVID pneumonia. The patient is a 65 yo F with PMHx of the following: CAD, s/p PTCA and stent Mild , last echo EF 60-65% COPD HTN CVA Obesity Diabetes w diabetic polyneuropathy.? On insulin. Dyslipidemia GERD Headache Arthritis Osteopenia Solitary pulmonary nodule Non-toxic multinodular goiter Psychiatric dis. on abilify HISTORY OF PRESENT ILLNESS:? The patient was previously vaccinated for COVID.? The patient presented to the ED on March 26 complaining of severe shortness of breath x 1 day.? Had been diagnosed with COVID-19 on 03/21 after being symptomatic for the prior few weeks.? (I am estimating sx onset day as 03/19, but could be as much as a week or two earlier). In ED triage, SpO2 was high 60s on room air.? W/U was notable for BUN/creat 60/2.4 (baseline 17/0.8), moderate metabolic acidosis, albumin 3.3, and UTI w bacteremia that grew out Ecoli.? CXR showed classic COVID/viral pneunonia, moderately severe.? Venous duplex and perfusion scans were negative. The patient was admitted to Medicine and started on steroids and ceftriaxone.? No remdesivir or other agents.? She was also very hyperglycemic, started on insulin.? Echo on 03/28 was basically normal, with normal RV, LV, IVC.? Course was complicated by severe metabolic encephalopathy with agitated delirium. On 03/29 she required tx to ICU bec of hypoxemia.? Required intubation a few hours later.? Baricitinib was added to her regimen.? FiO2 declined progressively from the 100% range to 30% by Apr 05.? Renal indices also declined progressively, to a faith of 21/0.6 on Apr 04.? On Apr 04, the patient had to have a tracheal tube change bec of concreted secretions. Steroids were tapered to Decadron 5mg daily.? The patient failed weaning trials.? I upped her steroids to 40 mg bid, added Vit C and Vit D, and started her on an insulin drip.? On Apr 08 we diuresed her vigorously for one day, but that was stopped bec it made no difference in her ventilatory parameters and made her renal indices rise. Over the last week, had been doing very well mental status-mandujano on light sedation with low dose Precedex, +/- low dose propofol, plus her Abilify and gabapentin.? But her RR and minute volume were too high to wean.? On 04/09, we added a fentanyl gtt.? That brought her respiratory rate down into the high teens.? That day, her white count bumped and she had a temperature to 101.? She was cultured and started on doxycycline.? Sputum Gram stain showed 4+ polys with 4+ Gram-positive cocci.? She grew out MSSA and Acinetobacter.? I did not treat the GNR (bec of the Gram stain).? She defervesced and the WBC came down. We turned off all her sedation on 04/11, including the fentanyl, weaned her pressure support, and extubated her with no incident.? Later on that day her respiratory rate and work of breathing mayda slightly, so I restarted the fentanyl at 25 up.? Since extubation, she?s been very weak, hardly moving around at all, not talking.? We put a 10Fr Kaofeed tube down yesterday for meds and feeding.? After starting tube feeds yesterday, she had an episode of projectile vomiting.? The tube feeding was stopped and I gave her 4 doses of Reglan.? Over the last two nights she?s spiked temps to 101?.? WBC mayda slightly, then came down again this morning.? We redid blood and urine cultures last night and added cefepime. This morning, she remains on the fentanyl at 25ug.? She is also on insulin at 2 units/hour.? Still very weak but I?ve seen her lifting both arms off the bed spontaneously, and also lifting her head off the pillow.? (Motor fxn maybe 2/5.)? Also able to move her feet to command, but not lift her legs.? Clearly understands us and nods her head weakly or tries to mouth a word, but no sound comes out.? She is very calm.? Upper right front tooth is missing.? [We spoke to the nurse and RT who extubated her, and neither one noticed it come out during the extubation.]? On HFNC 40L/35%, RR was 22, SpO2 94%.? This morning?s CVBG showed 7.56/30/+5.? Heart rate is 120, sinus rhythm.? Blood pressure is 139/71. ?T-max was 101.3 degrees during the overnight. ?I tried giving her a half teaspoon of apple juice.? She was barely able to manage half a swallow.? The tube feeding was restarted this morning at a low dose. ?No jugular venous distention with the head of bed at 20-30 degrees.? Tracheal sounds are 100% clear.? Chest is also CTA. Normal expiratory phase.? Regular rate and rhythm, normal-sounding S1 and S2, no murmur or gallop.? Abdomen is benign.? She has no peripheral edema. I/O balance = 5L positive. LABORATORY DATA:? As below.? Notably, WBC down to 11. ?BUN/creat down to 30/0.6.? POCs running low 200s on insulin drip at 3u/hr. MICROBIOLOGY:? Urinalysis 04/12 negative.? Sputum Gram stain 04/09 showed 4+polys and 4+ Gram-positive cocci.? Culture is growing 4+ MSSA and 4+ Acinetobacter.? Blood cultures from 04/09 show no growth.? Blood cultures from last night show no growth so far. IMPRESSION:? 65-year-old lady with multiple medical problems, including coronary and lung disease, diabetes and psychiatric dis. 1. Underlying COPD. 2. Bilat COVID pneumonia.? Estimated symptom onset day 03/19 or earlier.? Now doing well from an oxygenation point of view.? Yesterday was last day of baricitinib.? On Apr 07, added Vit C, Vit D, Pepcid, ASA, and thiamine, and upped her steroids to Solumedrol 40 mg bid.? Yesterday cut her steroids down to Solu-Medrol 20 mg bid. 3. Hypoxemic respiratory failure, secondary to above.? Extubated to DC.? Resp status is now tenuous, likely 2? ICU/steroid myopathy.? I remain watchful and concerned.? It is not unlikely that she will need reintubation and tracheostomy. 4. SUDEEP on admission -- likely 2? sepsis (urosepsis with bacteremia).? Renal indices came almost back to baseline.? Mayda again bec of diuresis, then stopped the Lasix, gave her back volume, renal indices now coming back down. 5. Hyperglycemia.? Worsened 2? increased steroid dose.? On insulin drip.? Restarting her tube feed, will have to go up on the drip. 6. ID:? Started her on doxycycline 04/09.? Fever and WBC came down and she came off the vent.? Originally thought that the GNR in her sputum was a colonizer/contaminant and doesn?t need treatment.? But then she respiked a temp and WBC is up slightly.? Dr. Martinez rec?s to substitute Levaquin 750 mg/d for cefepime, continue the doxy.? Plan 21 days of both abx. 7. Neuro/psych.? 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 No reason to think that she?s had a stroke.? Discussed with pharmacy, stopped her Abilify and gabapentin.? This morning started Provigil 200mg/day this morning. 8. Nutrition.? Placed a Kaofeed tube.? Continue Glucerna, goal rate 50cc/hr.? Reglan prn.? Make sure she stools. Critical care time (includ mult visits to bedside to reassess motor fxn, mental and ventilatory status, and airway):? 70 min. Critical Care Time (minutes): 70 Physical Exam Vital Signs: Vital Signs: Last Vital Signs Temp 99.5 F 04/13/21 11:00 Pulse 126 H 04/13/21 11:00 Resp 24 H 04/13/21 11:00 BP 139/71 04/13/21 11:00 Pulse Ox 93 04/13/21 11:00 Body Mass Index 32.2 Objective Data Labs CBC & Chem 7: 04/13/21 05:05 04/13/21 05:45 Labs: Laboratory Results - last 24 hr 04/12/21 04/12/21 04/12/21 13:25 18:10 19:31 WBC RBC Hgb Hct MCV MCH MCHC RDW Plt Count MPV Absolute Nucleated RBC Nucleated RBC % (auto) VBG pH VBG pCO2 VBG pO2 VBG HCO3 VBG O2 Saturation VBG Base Excess Sodium Potassium Chloride Carbon Dioxide Anion Gap BUN Creatinine Estim Creat Clear Calc Estimated GFR POC Glucose 180 H 83 154 H Random Glucose Calcium Phosphorus Magnesium Urine Color Urine Appearance Urine pH Ur Specific [place] Urine Protein Urine Glucose (UA) Urine Ketones Urine Blood Urine Nitrite Ur Leukocyte Esterase Urine RBC Urine WBC Ur Squamous Epith Cells Urine Bacteria 04/12/21 04/12/21 04/12/21 21:43 22:51 23:55 WBC RBC Hgb Hct MCV MCH MCHC RDW Plt Count MPV Absolute Nucleated RBC Nucleated RBC % (auto) VBG pH VBG pCO2 VBG pO2 VBG HCO3 VBG O2 Saturation VBG Base Excess Sodium Potassium Chloride Carbon Dioxide Anion Gap BUN Creatinine Estim Creat Clear Calc Estimated GFR POC Glucose 227 H 169 H Random Glucose Calcium Phosphorus Magnesium Urine Color YELLOW Urine Appearance CLEAR Urine pH 6.0 Ur Specific [place] 1.015 Urine Protein 1+ H Urine Glucose (UA) 100 H Urine Ketones 15 Urine Blood 3+ H Urine Nitrite NEG Ur Leukocyte Esterase NEG Urine RBC 30-49 H Urine WBC 0-2 Ur Squamous Epith Cells TRACE Urine Bacteria TRACE 04/13/21 04/13/21 04/13/21 01:14 03:30 05:05 WBC 11.1 H RBC 4.59 Hgb 11.6 L Hct 37.9 MCV 82.6 MCH 25.3 L MCHC 30.6 L RDW 15.9 Plt Count 317 MPV 12.1 Absolute Nucleated RBC 0.000 Nucleated RBC % (auto) 0.0 VBG pH VBG pCO2 VBG pO2 VBG HCO3 VBG O2 Saturation VBG Base Excess Sodium Potassium Chloride Carbon Dioxide Anion Gap BUN Creatinine Estim Creat Clear Calc Estimated GFR POC Glucose 158 H 176 H Random Glucose Calcium Phosphorus Magnesium Urine Color Urine Appearance Urine pH Ur Specific [place] Urine Protein Urine Glucose (UA) Urine Ketones Urine Blood Urine Nitrite Ur Leukocyte Esterase Urine RBC Urine WBC Ur Squamous Epith Cells Urine Bacteria 04/13/21 04/13/21 04/13/21 05:16 05:45 05:52 WBC RBC Hgb Hct MCV MCH MCHC RDW Plt Count MPV Absolute Nucleated RBC Nucleated RBC % (auto) VBG pH 7.56 H VBG pCO2 30 VBG pO2 64 VBG HCO3 27 H VBG O2 Saturation 94.0 VBG Base Excess 5.6 Sodium 145 Potassium 4.4 Chloride 109 H Carbon Dioxide 29 Anion Gap 11 L BUN 30 H Creatinine 0.65 Estim Creat Clear Calc 76.9 Estimated GFR > 60 POC Glucose 228 H Random Glucose 229 H Calcium 8.7 Phosphorus 2.3 L Magnesium 2.1 Urine Color Urine Appearance Urine pH Ur Specific [place] Urine Protein Urine Glucose (UA) Urine Ketones Urine Blood Urine Nitrite Ur Leukocyte Esterase Urine RBC Urine WBC Ur Squamous Epith Cells Urine Bacteria 04/13/21 08:10 WBC RBC Hgb Hct MCV MCH MCHC RDW Plt Count MPV Absolute Nucleated RBC Nucleated RBC % (auto) VBG pH VBG pCO2 VBG pO2 VBG HCO3 VBG O2 Saturation VBG Base Excess Sodium Potassium Chloride Carbon Dioxide Anion Gap BUN Creatinine Estim Creat Clear Calc Estimated GFR POC Glucose 228 H Random Glucose Calcium Phosphorus Magnesium Urine Color Urine Appearance Urine pH Ur Specific [place] Urine Protein Urine Glucose (UA) Urine Ketones Urine Blood Urine Nitrite Ur Leukocyte Esterase Urine RBC Urine WBC Ur Squamous Epith Cells Urine Bacteria Microbiology Microbiology Results: Microbiology 04/09/21 19:50 Sputum - Suctioned Gram Stain - Final 04/09/21 19:50 Sputum - Suctioned Sputum Culture - Final Staphylococcus aureus Acinetobacter baumannii 04/09/21 09:42 Blood - Venous Blood Culture - Preliminary No growth after 48 hours. 04/09/21 09:32 Blood - Venous Blood Culture - Preliminary No growth after 48 hours. 04/05/21 07:25 Blood - Venous Blood Culture - Final No growth after 5 days. 04/05/21 07:25 Blood - Venous Blood Culture - Final No growth after 5 days. 04/05/21 08:42 Urine Catheterized - Rashid Catheter Urine Culture - Final Preethi glabrata 04/05/21 08:42 Sputum - Suctioned Gram Stain - Final 04/05/21 08:42 Sputum - Suctioned Sputum Culture - Final 04/01/21 14:28 Sputum - Suctioned Gram Stain - Final 04/01/21 14:28 Sputum - Suctioned Sputum Culture - Final Preethi albicans 03/26/21 16:43 Blood - Venous Blood Culture - Final No growth after 5 days. 03/27/21 Unknown Urine Catheterized - Rashid Catheter Urine Culture - Final Escherichia coli 03/26/21 16:43 Blood - Venous Blood Culture - Final Escherichia coli Quality Stroke Does the patient have a stroke diagnosis?: No VTE Prior VTE?: No VTE Risk Level:: Medical - moderate - high VTE Device Contraindication: Treatment Not Indicated VTE Drug Contraindication: N/A - Med Ordered Critical Care Time Critical Care Time (minutes): 60
[2021-04-13 12:14] LABS: Glucose, Whole Blood 226 mg/dL (60-115)
[2021-04-13 12:31] LABS: Glucose, Whole Blood 159 mg/dL (60-115)
--- NOTE | 2021-04-13 13:01 | PM.EVENT ---
Event Note Date of Service: 05/25/21 Event Note: sputum plus 4 polys 04/09/21 acenitobacter baumanii odilia less than 0.2 to Levaquin,talked to Dave in Micro staph aureus possible Amp C and other beta lactamases for acenitobacter with cephalosporins (on Cefepime) so would change to Levaquin with DNA gyrase primary mechanism resistance no QT prolongation I see reported and no interactions or allergies Would give Doxycycline and Levaquin 21 d
[2021-04-13 16:44] LABS: Glucose, Whole Blood 122 mg/dL (60-115)
[2021-04-13] MEDS: Sodium,Potassium Phosphates POWD.PACK 2 PACKET PO (17:13)
[2021-04-13] MEDS: levoFLOXacin/D5W 750 MG/150 ML PIGGYBACK 100 MG IV (17:13)
[2021-04-13 19:48] LABS: Glucose, Whole Blood 153 mg/dL (60-115)
[2021-04-13] MEDS: Fluconazole in NaCl,Iso-Osm 200 MG/100 ML PIGGYBACK 100 MG IV (19:57)
[2021-04-13] MEDS: Metoprolol Tartrate 12.5 MG HALFTAB PO (19:58)
[2021-04-14] VITALS (33 sets, daily range): BP systolic 145–188; BP diastolic 68–95; PULSE 87–125; RESP 12–36; TEMP 37.7–38.5; O2SAT 90–96
[2021-04-14] MEDS: Insulin Regular/NS 100 UNIT/100 ML PLAST..BAG IVCONT (00:28)
[2021-04-14] MEDS: methylPREDNISolone Sod Succ 40 MG/ML VIAL 20 MG IVPUSH (00:28)
[2021-04-14] MEDS: fentaNYL citrate/NS 1,000 MCG/100 ML PLAST..BAG 1.5 MCG IVCONT (00:29)
[2021-04-14 00:51] LABS: Glucose, Whole Blood 138 mg/dL (60-115)
[2021-04-14 00:51] LABS: Glucose, Whole Blood 135 mg/dL (60-115)
[2021-04-14 02:20] LABS: Glucose, Whole Blood 138 mg/dL (60-115)
[2021-04-14 05:21] LABS: VBG Base Excess 6.5 mmol/L; VBG HCO3 29 mmol/L (22-26); VBG pCO2 36 mmHg; VBG pH 7.51 (7.32-7.43); VBG pO2 46 mmHg
[2021-04-14 05:24] LABS: Venous Blood Gas Refer to POC result
[2021-04-14 05:30] LABS: Glucose, Whole Blood 176 mg/dL (60-115)
[2021-04-14 05:32] LABS: Hematocrit 38.3 % (37-47); Hemoglobin 11.8 g/dl (12.0-16.0); Mean Corpuscular HGB Conc 30.8 g/dl (31.0-35.0); Mean Corpuscular Hemoglobin 25.3 pg (27.0-33.0); Mean Platelet Volume 11.7 fL (9.4-12.3); Platelet Count 321 X10*3/uL (160-400); Red Blood Count 4.67 X10*6/uL (4.20-5.50); Red Cell Distribution Width 15.8 % (11.0-16.0)
[2021-04-14 05:48] LABS: Albumin Level 2.9 g/dL (3.5-5.0); Anion Gap 14 (12-20); Blood Urea Nitrogen 26 mg/dL (9-16); Calcium 9.3 mg/dL (8.4-10.2); Carbon Dioxide 29 mmol/L (22-29); Chloride 107 mmol/L (96-108); Creatinine Clr Calc Pharmacy 76.9; Estimated Glomerular Filt Rate > 60; Glucose Random 179 mg/dL (60-115); Magnesium 2.1 mg/dL (1.6-2.6); Phosphorus 2.5 mg/dL (2.7-4.5); Potassium 3.5 mmol/L (3.3-5.1); Sodium 146 mmol/L (135-145)
--- NOTE | 2021-04-14 06:20 | PC.NURSE ---
Addendum entered by Gal Ariza RN 04/14/21 06:30: FENTANYL DRIP D/C'D PER 06:30 Original Note: CARE ASSUMED 23:15...REMAINS NON-VERBAL...TRACKS SPEAKER...WEAKLY YOUSSEF...OCCASSIONALLY NODS NIKOLAS/NO TO SIMPLE QUESTIONS...O2 40% VIA HI-CORINNA CANNULA...SAO2 93-94%...LOOSE NON-PRODUCTIVE COUGH...INSULIN DRIP PER AUG..CURRENTLY 3 UNITS/HR...FENTANYL DRIP 15 MCG/HR OVERNIGHT...SBP 160'S-170'S...PA AWARE...TO START COREG BID THIS AM...TUBE FEEDS VIA KAOFEED TUBE...GLUCERNA TITRATED FROM 20 CC/HR TO 40 CC/HR OVERNIGHT...SINUS TACH HR 110'S-120'S...GUERRERO YELLOW URINE...NO BM OVERNIGHT
[2021-04-14] MEDS: 0.9 % Sodium Chloride Flush 3 ML SYRINGE IVFLUSH ×3 (07:27→20:52)
[2021-04-14] MEDS: Doxycycline Hyclate 100 MG in 0.9 % Sodium Chloride 250 ML 166.67 MG IV (07:28)
[2021-04-14] MEDS: Enoxaparin Sodium 40 MG/0.4 ML SYRINGE SUBCUT (07:28)
[2021-04-14] MEDS: Aspirin 325 MG TABLET PO (07:29)
[2021-04-14] MEDS: modafiniL 100 MG TABLET 200 MG G-TUBE (07:29)
[2021-04-14] MEDS: Cholecalciferol (Vitamin D3) 25 MCG TABLET 50 MCG PO (07:29)
[2021-04-14] MEDS: Famotidine 20 MG TABLET PO (07:29)
[2021-04-14] MEDS: Thiamine HCL 100 MG TABLET 200 MG PO ×2 (07:29→20:52)
[2021-04-14] MEDS: Atorvastatin Calcium 40 MG TABLET PO (07:30)
[2021-04-14] MEDS: carvediloL 6.25 MG TABLET PO (07:31)
[2021-04-14 08:06] LABS: Glucose, Whole Blood 173 mg/dL (60-115)
[2021-04-14] MEDS: Caspofungin Acetate 70 MG in 0.9 % Sodium Chloride 250 ML 250 MG IV (10:25)
[2021-04-14] MEDS: Lactulose 20 GM/30 ML SOLUTION PO (10:33)
--- NOTE | 2021-04-14 10:52 | MHC.CLN ---
F/U PT EXTUBATED 04/11 BUT NOW WITH KAOFEED TUBE DISCUSSED AT ROUNDS WITH PT RECEIVING GLUCERNA AT 40ML/HR PROVIDES 960KCALS, 40G PROTEIN PT HAD EPISODE OF PROJECTILE VOMITING X 1 PER NSG; REGLAN GIVEN IF PT TOLERATES CURRENT RATE WITH LOW RESIDUALS; RECOMMEND GLUCERNA AT MAX GOAL 50ML/HR TO PROVIDE 1200KCALS (22 KCALS/KG ON CMW), 50G TOTAL PROTEIN (.9G/KG BASED ON CMW), 1023ML TOTAL WATER FROM FORMULA WILL START 120ML Q 4HRS TO PROVIDE 1743ML TOTAL (31.7ML/KG FOR MAINTENANCE) MONITOR FOR BM; PT PREVIOUSLY WITH HIGH RESIDUALS R/T NO BM CONTINUE TO MONITOR TOLERANCE, RESIDUALS AND LYTES
--- NOTE | 2021-04-14 11:10 | MHC.CM.PN ---
Pt continues on high flow O2 after extubation. Will have new consults for PT/OT and speech. Pt very delayed following commands, no motivation per RN. Referrred to Acute and STR centers in anticipation of d/c. Pt with a HCP and J&J vaccination hx. CM to follow
[2021-04-14] MEDS: Insulin Lispro 100 UNIT/ML 3 ML VIAL SUBCUT ×3 (11:35→20:51)
[2021-04-14 11:37] LABS: Glucose, Whole Blood 256 mg/dL (60-115)
--- NOTE | 2021-04-14 12:12 | PM.IDPN ---
Subjective Subjective Date of Service: 04/14/21 Critical Care Time (minutes): 15 Comment: she remains in ICU,on oxygen supportm,vent Objective Data Labs CBC & Chem 7: 04/30/21 06:59 05/02/21 21:59 Labs: Laboratory Results - last 24 hr 04/13/21 04/13/21 04/13/21 10:05 12:28 16:40 WBC RBC Hgb Hct MCV MCH MCHC RDW Plt Count MPV Absolute Nucleated RBC Nucleated RBC % (auto) VBG pH VBG pCO2 VBG pO2 VBG HCO3 VBG O2 Saturation VBG Base Excess Sodium Potassium Chloride Carbon Dioxide Anion Gap BUN Creatinine Estim Creat Clear Calc Estimated GFR POC Glucose 226 H 159 H 122 H Random Glucose Calcium Phosphorus Magnesium Albumin 04/13/21 04/13/21 04/14/21 19:37 22:35 00:34 WBC RBC Hgb Hct MCV MCH MCHC RDW Plt Count MPV Absolute Nucleated RBC Nucleated RBC % (auto) VBG pH VBG pCO2 VBG pO2 VBG HCO3 VBG O2 Saturation VBG Base Excess Sodium Potassium Chloride Carbon Dioxide Anion Gap BUN Creatinine Estim Creat Clear Calc Estimated GFR POC Glucose 153 H 135 H 138 H Random Glucose Calcium Phosphorus Magnesium Albumin 04/14/21 04/14/21 04/14/21 02:01 05:09 05:10 WBC RBC Hgb Hct MCV MCH MCHC RDW Plt Count MPV Absolute Nucleated RBC Nucleated RBC % (auto) VBG pH VBG pCO2 VBG pO2 VBG HCO3 VBG O2 Saturation VBG Base Excess Sodium 146 H Potassium 3.5 D Chloride 107 Carbon Dioxide 29 Anion Gap 14 BUN 26 H Creatinine 0.65 Estim Creat Clear Calc 76.9 Estimated GFR > 60 POC Glucose 138 H 176 H Random Glucose 179 H Calcium 9.3 D Phosphorus 2.5 L Magnesium 2.1 Albumin 2.9 L 04/14/21 04/14/21 04/14/21 05:10 05:15 08:00 WBC 14.0 H RBC 4.67 Hgb 11.8 L Hct 38.3 MCV 82.0 MCH 25.3 L MCHC 30.8 L RDW 15.8 Plt Count 321 MPV 11.7 Absolute Nucleated RBC 0.000 Nucleated RBC % (auto) 0.0 VBG pH 7.51 H VBG pCO2 36 VBG pO2 46 VBG HCO3 29 H VBG O2 Saturation 80.0 VBG Base Excess 6.5 Sodium Potassium Chloride Carbon Dioxide Anion Gap BUN Creatinine Estim Creat Clear Calc Estimated GFR POC Glucose 173 H Random Glucose Calcium Phosphorus Magnesium Albumin 04/14/21 11:32 WBC RBC Hgb Hct MCV MCH MCHC RDW Plt Count MPV Absolute Nucleated RBC Nucleated RBC % (auto) VBG pH VBG pCO2 VBG pO2 VBG HCO3 VBG O2 Saturation VBG Base Excess Sodium Potassium Chloride Carbon Dioxide Anion Gap BUN Creatinine Estim Creat Clear Calc Estimated GFR POC Glucose 256 H Random Glucose Calcium Phosphorus Magnesium Albumin Microbiology Microbiology Results: Microbiology 04/09/21 09:42 Blood - Venous Blood Culture - Final No growth after 5 days. 04/09/21 09:32 Blood - Venous Blood Culture - Final No growth after 5 days. 04/12/21 22:59 Blood - Venous Blood Culture - Preliminary No growth after 24 hours. 04/12/21 22:59 Blood - Venous Blood Culture - Preliminary No growth after 24 hours. 04/09/21 19:50 Sputum - Suctioned Gram Stain - Final 04/09/21 19:50 Sputum - Suctioned Sputum Culture - Final Staphylococcus aureus Acinetobacter baumannii 04/05/21 07:25 Blood - Venous Blood Culture - Final No growth after 5 days. 04/05/21 07:25 Blood - Venous Blood Culture - Final No growth after 5 days. 04/05/21 08:42 Urine Catheterized - Rashid Catheter Urine Culture - Final Preethi glabrata 04/05/21 08:42 Sputum - Suctioned Gram Stain - Final 04/05/21 08:42 Sputum - Suctioned Sputum Culture - Final 04/01/21 14:28 Sputum - Suctioned Gram Stain - Final 04/01/21 14:28 Sputum - Suctioned Sputum Culture - Final Preethi albicans 03/26/21 16:43 Blood - Venous Blood Culture - Final No growth after 5 days. 03/27/21 Unknown Urine Catheterized - Rashid Catheter Urine Culture - Final Escherichia coli 03/26/21 16:43 Blood - Venous Blood Culture - Final Escherichia coli Physical Exam Vital Signs: Vital Signs: Last Vital Signs Temp 100.8 F H 04/14/21 11:00 Pulse 102 H 04/14/21 11:28 Resp 24 H 04/14/21 11:45 BP 177/74 H 04/14/21 11:28 Pulse Ox 94 04/14/21 11:28 Body Mass Index 32.2 Const: General: no acute distress HENMT: Head: Yes normal to inspection Resp: Effort & Inspection: normal respiratory effort Cardio: Rate: regular rate Rhythm: regular rhythm GI: Palpation (GI): Soft to palpation and nontender Assessment and Plan Assessment and plan (1) Pneumonia due to COVID-19 virus: Problem details: Her post COVID pneumonitis is worse, I recommend that we continue IV Solu-Medrol for a few more days, may decrease the dose to 40 mg IV q.8 hours. Continue oxygenation, as needed with attempts to wean down keeping O2 sat above 90%. Prognosis at this point seems to be guarded. Status: Acute (2) Acute respiratory failure with hypoxemia: Status: Acute (3) Pneumonia due to Acinetobacter species: Problem details: She also has MSSA Status: Deleted Assessment and Plan: Would give Levaquin and Doxycycline,now day08/18,can convert to po when able. Believe urine preethi glabrata colonized,benign urine sediment with large WBC so no antifungal should be given. Time Spent With Patient Time: Total time spent is greater than 50% in coordination of care (as documented) at patient's floor/unit and/or counseling patient: Time with patient: 15 - 24 minutes
--- NOTE | 2021-04-14 15:37 | P.PNCC_ITS ---
Subjective Subjective Date of Service: 04/14/21 Interval History: 65-year-old female with insulin-requiring type 2 diabetes and hypertensive cardiovascular disease and ischemic heart disease status post prior stenting with moderate obesity who presented with hypoxemic respiratory failure from bilateral COVID-19 pneumonitis and ARDS and then developed a ventilator associated pneumonia with combination of acinetobacter and methicillin sensitive Staph aureus and currently started on Levaquin but was successfully extubated thus far to nasal high-flow and appears to be compensated without significant respiratory effort or accessory muscle use S just that she is still encephalopathic and clearly extremely weak 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 and we clearly need to initiate physical therapy and speech therapy because I do not believe she is handling secretions well and I am afraid that she is a risk for aspiration and therefore noninvasive positive- pressure ventilation is out of the question Critical Care Time (minutes): 45 Physical Exam Vital Signs: Vital Signs: Last Vital Signs Temp 101.3 F H 04/14/21 15:00 Pulse 109 H 04/14/21 15:00 Resp 24 H 04/14/21 15:16 BP 188/81 H 04/14/21 15:00 Pulse Ox 93 04/14/21 15:00 Body Mass Index 32.2 She is awake but follows directions poorly but has some cognitive function and that she can lock eyes Diffusely weak Cardiac exam with no gallops no murmurs and good bilateral carotid upstrokes Abdomen it is soft and tolerating feedings without significant residual with no organomegaly Chest with no adventitious sounds just mild scattered inspiratory rales Skin intact Objective Data Labs CBC & Chem 7: 04/14/21 05:10 04/14/21 05:10 Labs: Laboratory Results - last 24 hr 04/13/21 04/13/21 04/13/21 16:40 19:37 22:35 WBC RBC Hgb Hct MCV MCH MCHC RDW Plt Count MPV Absolute Nucleated RBC Nucleated RBC % (auto) VBG pH VBG pCO2 VBG pO2 VBG HCO3 VBG O2 Saturation VBG Base Excess Sodium Potassium Chloride Carbon Dioxide Anion Gap BUN Creatinine Estim Creat Clear Calc Estimated GFR POC Glucose 122 H 153 H 135 H Random Glucose Calcium Phosphorus Magnesium Albumin 04/14/21 04/14/21 04/14/21 00:34 02:01 05:09 WBC RBC Hgb Hct MCV MCH MCHC RDW Plt Count MPV Absolute Nucleated RBC Nucleated RBC % (auto) VBG pH VBG pCO2 VBG pO2 VBG HCO3 VBG O2 Saturation VBG Base Excess Sodium Potassium Chloride Carbon Dioxide Anion Gap BUN Creatinine Estim Creat Clear Calc Estimated GFR POC Glucose 138 H 138 H 176 H Random Glucose Calcium Phosphorus Magnesium Albumin 04/14/21 04/14/21 04/14/21 05:10 05:10 05:15 WBC 14.0 H RBC 4.67 Hgb 11.8 L Hct 38.3 MCV 82.0 MCH 25.3 L MCHC 30.8 L RDW 15.8 Plt Count 321 MPV 11.7 Absolute Nucleated RBC 0.000 Nucleated RBC % (auto) 0.0 VBG pH 7.51 H VBG pCO2 36 VBG pO2 46 VBG HCO3 29 H VBG O2 Saturation 80.0 VBG Base Excess 6.5 Sodium 146 H Potassium 3.5 D Chloride 107 Carbon Dioxide 29 Anion Gap 14 BUN 26 H Creatinine 0.65 Estim Creat Clear Calc 76.9 Estimated GFR > 60 POC Glucose Random Glucose 179 H Calcium 9.3 D Phosphorus 2.5 L Magnesium 2.1 Albumin 2.9 L 04/14/21 04/14/21 08:00 11:32 WBC RBC Hgb Hct MCV MCH MCHC RDW Plt Count MPV Absolute Nucleated RBC Nucleated RBC % (auto) VBG pH VBG pCO2 VBG pO2 VBG HCO3 VBG O2 Saturation VBG Base Excess Sodium Potassium Chloride Carbon Dioxide Anion Gap BUN Creatinine Estim Creat Clear Calc Estimated GFR POC Glucose 173 H 256 H Random Glucose Calcium Phosphorus Magnesium Albumin Microbiology Microbiology Results: Microbiology 04/09/21 09:42 Blood - Venous Blood Culture - Final No growth after 5 days. 04/09/21 09:32 Blood - Venous Blood Culture - Final No growth after 5 days. 04/12/21 22:59 Blood - Venous Blood Culture - Preliminary No growth after 24 hours. 04/12/21 22:59 Blood - Venous Blood Culture - Preliminary No growth after 24 hours. 04/09/21 19:50 Sputum - Suctioned Gram Stain - Final 04/09/21 19:50 Sputum - Suctioned Sputum Culture - Final Staphylococcus aureus Acinetobacter baumannii 04/05/21 07:25 Blood - Venous Blood Culture - Final No growth after 5 days. 04/05/21 07:25 Blood - Venous Blood Culture - Final No growth after 5 days. 04/05/21 08:42 Urine Catheterized - Rashid Catheter Urine Culture - Final Preethi glabrata 04/05/21 08:42 Sputum - Suctioned Gram Stain - Final 04/05/21 08:42 Sputum - Suctioned Sputum Culture - Final 04/01/21 14:28 Sputum - Suctioned Gram Stain - Final 04/01/21 14:28 Sputum - Suctioned Sputum Culture - Final Preethi albicans 03/26/21 16:43 Blood - Venous Blood Culture - Final No growth after 5 days. 03/27/21 Unknown Urine Catheterized - Rashid Catheter Urine Culture - Final Escherichia coli 03/26/21 16:43 Blood - Venous Blood Culture - Final Escherichia coli Quality Stroke Does the patient have a stroke diagnosis?: No VTE Prior VTE?: No VTE Risk Level:: Medical - moderate - high VTE Device Contraindication: Treatment Not Indicated VTE Drug Contraindication: N/A - Med Ordered Progress Note: A&P Assessment and plan (1) Pneumonia due to Acinetobacter species: Status: Acute (2) Hypernatremia: Status: Acute (3) CVA (cerebral vascular accident): Status: Acute (4) Acute respiratory failure with hypoxemia: Status: Acute (5) Diastolic dysfunction: Status: Acute (6) Acute respiratory distress syndrome (ARDS) due to COVID-19 virus: Status: Acute (7) Encephalopathy: Status: Acute (8) UTI (urinary tract infection): Status: Acute (9) Bacteremia: Status: Acute (10) Lactic acid acidosis: Status: Acute (11) Pneumonia due to COVID-19 virus: Status: Acute (12) Acute hyperglycemia: Status: Acute (13) Acute kidney injury: Status: Acute (14) Respiratory failure with hypoxia: Status: Acute (15) Right hip pain: Status: Acute (16) Nonrheumatic aortic (valve) stenosis: Status: Acute (17) Type 2 diabetes mellitus with unspecified complications: Status: Acute (18) Essential hypertension: Status: Acute (19) Atherosclerotic cardiovascular disease: Status: Acute (20) Non-toxic multinodular goiter: Status: Acute (21) Diabetic polyneuropathy associated with type 2 diabetes mellitus: Status: Acute (22) 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
[2021-04-14 16:10] LABS: Glucose, Whole Blood 248 mg/dL (60-115)
[2021-04-14] MEDS: levoFLOXacin/D5W 750 MG/150 ML PIGGYBACK 100 MG IV (16:21)
--- NOTE | 2021-04-14 17:19 | MHC.SLORD ---
Speech Language Pathology Order Status: JUNIOR WEB DESIGNER consulted with RN Wednesday. Patient was lethargic with KO feeding tube in her right nare at time of visit. PO trials not appropriate at this time. RN reported failed swallow screen 04/11 and again 04/12 where thin liquid spilled from patient's mouth and no swallow trigger was observed. RN also reports severe generalized motor weakness and difficulty following directions at this time. JUNIOR WEB DESIGNER will re-attempt evaluation tomorrow morning.
--- NOTE | 2021-04-14 17:55 | PC.NURSE ---
TMAX 101.3, MD AWARE. ST ON TELE. MD NOTIFIED OF SBP 180S, MD TO INCREASE MEDICATIONS. PATIENT CONTINUES TO RESPOND TO NAME, DOES NOT ATTEMPT TP SPEAK, FOLLOWS COMMANDS WITH ENCOURAGEMENT. VACUUM COOKER OPERATOR USED. REAMAINS ON HIGH FLOW 40L/40% AND TOLERATING WELL. INSULIN GTT TURNED OFF AT 0954, CHANGED TO SLIDING SCALE INSULIN. GUERRERO OUTPUT WNL. LACTULOSE 20 MG X 1 ADMINISTERED. TUBE FEEDS GLUCERNA AT 40 ML/HR WITH FWF 120 Q4HR- INCREASED TO MAX OF 50 ML/HR AT 1748 AFTER XLARGE BM. Q2HR REPO, BATHED, FREQUENT ORAL CARE, BARRIER CREAM, PREVALON MATTRESS, WEDGES, PILLOWS AND HEELBOS UTILIZED. FAMILY UPDATED AND FACETIMED.
[2021-04-14] MEDS: Doxycycline Hyclate 100 MG in 0.9 % Sodium Chloride 250 ML 150 MG IV (20:51)
[2021-04-14 20:52] LABS: Glucose, Whole Blood 257 mg/dL (60-115)
[2021-04-14] MEDS: carvediloL 12.5 MG TABLET PO (20:52)
[2021-04-14] MEDS: Metoprolol Tartrate 5 MG/5 ML VIAL IVPUSH (20:52)
[2021-04-14] MEDS: Insulin Glargine,Hum.rec.anlog 100 UNIT/ML 10 ML VIAL 10 UNIT SUBCUT (20:53)
[2021-04-15] VITALS (32 sets, daily range): BP systolic 115–182; BP diastolic 55–88; PULSE 78–104; RESP 12–36; TEMP 37.5–38.4; O2SAT 88–100
[2021-04-15 05:26] LABS: VBG Base Excess 11.6 mmol/L; VBG HCO3 34 mmol/L (22-26); VBG pCO2 39 mmHg; VBG pH 7.55 (7.32-7.43); VBG pO2 38 mmHg
[2021-04-15 05:27] LABS: MANUAL DIFF FLAG NO
[2021-04-15 05:29] LABS: Basophils Percent Auto 0.1 % (0-2); Eosinophils Absolute Auto 0.2 X10*3/uL (0.0-0.4); Hematocrit 36.4 % (37-47); Hemoglobin 11.3 g/dl (12.0-16.0); Imm Gran Abs Auto 0.16 X10*3/uL (0.00-0.03); Imm Gran Pct Auto 0.9 % (0.0-0.4); Lymphocytes Absolute Auto 3.7 X10*3/uL (1.2-4.9); Lymphocytes Percent Auto 20.7 % (20-40); Mean Corpuscular Hemoglobin 25.6 pg (27.0-33.0); Mean Corpuscular Volume 82.4 fL (80-98); Mean Platelet Volume 11.2 fL (9.4-12.3); Monocytes Absolute Auto 0.5 X10*3/uL (0.1-1.2); Monocytes Percent Auto 2.7 % (2-11); Neutrophils Absolute Auto 13.3 X10*3/uL (2.0-8.3); Neutrophils Percent Auto 74.6 % (45-73); Platelet Count 286 X10*3/uL (160-400); Red Blood Count 4.42 X10*6/uL (4.20-5.50); Red Cell Distribution Width 15.7 % (11.0-16.0); Venous Blood Gas Refer to POC result; White Blood Count 17.9 X10*3/uL (4.8-10.8)
[2021-04-15 05:48] LABS: Albumin Level 2.8 g/dL (3.5-5.0); Anion Gap 10 (12-20); Blood Urea Nitrogen 23 mg/dL (9-16); C Reactive Protein 1.21 mg/dL (< or = 0.50); Calcium 9.1 mg/dL (8.4-10.2); Carbon Dioxide 32 mmol/L (22-29); Chloride 103 mmol/L (96-108); Creatinine Clr Calc Pharmacy 73.5; Estimated Glomerular Filt Rate > 60; Glucose Random 260 mg/dL (60-115); Magnesium 1.9 mg/dL (1.6-2.6); Phosphorus 2.3 mg/dL (2.7-4.5); Potassium 3.2 mmol/L (3.3-5.1); Sodium 142 mmol/L (135-145)
[2021-04-15 05:49] LABS: D Dimer 2927 NG/ML
[2021-04-15 05:53] LABS: Lactate Dehydrogenase 369 U/L (122-220)
[2021-04-15 06:07] LABS: Ferritin 283 ng/mL (10-250)
[2021-04-15 07:15] LABS: Glucose, Whole Blood 287 mg/dL (60-115)
[2021-04-15] MEDS: Cholecalciferol (Vitamin D3) 25 MCG TABLET 50 MCG PO (07:40)
[2021-04-15] MEDS: Famotidine 20 MG TABLET PO (07:41)
[2021-04-15] MEDS: Enoxaparin Sodium 40 MG/0.4 ML SYRINGE SUBCUT (07:41)
[2021-04-15] MEDS: predniSONE 10 MG TABLET 30 MG PO (07:41)
[2021-04-15] MEDS: Thiamine HCL 100 MG TABLET 200 MG PO ×2 (07:41→21:37)
[2021-04-15] MEDS: Aspirin 325 MG TABLET PO (07:41)
[2021-04-15] MEDS: carvediloL 12.5 MG TABLET 25 MG PO ×2 (07:42→21:37)
[2021-04-15] MEDS: Atorvastatin Calcium 40 MG TABLET PO (07:42)
[2021-04-15] MEDS: Insulin Glargine,Hum.rec.anlog 100 UNIT/ML 10 ML VIAL 10 UNIT SUBCUT ×2 (07:43→21:38)
[2021-04-15] MEDS: Insulin Lispro 100 UNIT/ML 3 ML VIAL SUBCUT ×4 (07:43→21:44)
[2021-04-15] MEDS: 0.9 % Sodium Chloride Flush 3 ML SYRINGE IVFLUSH ×3 (07:43→23:27)
[2021-04-15] MEDS: Doxycycline Hyclate 100 MG in 0.9 % Sodium Chloride 250 ML 166.67 MG IV ×2 (07:44→21:37)
[2021-04-15] MEDS: Potassium Chloride/H20 20 MEQ/100 ML PIGGYBACK 100 MEQ IV ×2 (08:27→11:47)
--- NOTE | 2021-04-15 09:46 | MHC.CLN ---
F/U PT HAD XL BM PER NSG 04/14 PT RECEIVING GLUCERNA AT MAX GOAL 50ML/HR WITH 120CC FWF Q 4 HRS PROVIDES 1200KCALS (22 KCALS/KG ON CMW), 50G TOTAL PROTEIN (.9G/KG BASED ON CMW), 1743ML TOTAL WATER FROM FORMULA (31.7ML/KG) MONITOR FOR BM; PT PREVIOUSLY WITH HIGH RESIDUALS R/T NO BM CONTINUE TO MONITOR TOLERANCE, RESIDUALS AND LYTES
[2021-04-15] MEDS: modafiniL 100 MG TABLET 200 MG G-TUBE (11:46)
[2021-04-15 11:48] LABS: Glucose, Whole Blood 230 mg/dL (60-115)
--- NOTE | 2021-04-15 13:54 | MHC.SL.SWA ---
Speech Pathologist Impression: Risk of Aspiration Oralpharyngeal Dysphagia Risk of Aspiration Due to: Lethargy Medically Fragile History of Pneumonia Hx of Recent Extubation Weak Cough Weak Voice Dysphasia Diet Status: No Change Liquid Consistency and Strategies for Safe Swallow: Liquid Intake Recommendation: NPO Solid Food Consistency: NPO Oral Medication Intake: NPO Supervision While Eating and Drinking for Safe Swallow: PO with QUALITY REVIEW TRAINER Patient presented with dried secretions on lips and tongue. Patient was provided with oral care with mouthwash and swab. No swallow with mouthwash, but noted gurgly throat sound. Patient was asked to initiate volitional swallow. Patient attempted swallow and this appeared effortful. However, upon palpation, no laryngeal elevation. Patient was asked to produce cough. Patient has extremely weak cough. Patient would not be able to protect airway. No PO trials administered due to patient's need for suctioning, absent swallow trigger, and extremely weak cough. Aids Social Worker Clinican/Clinical Fellow: No Supervisory Statement: I have reviewed and agree with the student/clinical fellow's documentation: N/A Speech Language Pathologist: Kenya Quiroz M.A., [facility]QUALITY REVIEW TRAINER
--- NOTE | 2021-04-15 14:51 | PM.CCPN ---
Subjective Subjective Date of Service: 04/15/21 Critical Care Time (minutes): 45 Comment: 65-year-old female with COVID-19 pneumonitis and ARDS with hypoxemic respiratory failure now status post extubation still does not swallow or attempt on command does understand that she is in the hospital and she is oriented to self and place and currently tolerating NG tube feedings but still cannot be trusted to handle secretions Low-grade temperature persists but potentially peak temperatures are diminishing Physical Exam Vital Signs: Vital Signs: Last Vital Signs Temp 99.7 F 04/15/21 14:00 Pulse 90 04/15/21 14:00 Resp 27 H 04/15/21 14:00 BP 170/67 H 04/15/21 14:00 Pulse Ox 88 L 04/15/21 14:00 Body Mass Index 32.2 Lethargic but arousable and nonfocal neurologically Sinus rhythm with good bilateral carotid upstrokes Chest without adventitious sound Skin is intact Objective Data Labs CBC & Chem 7: 04/15/21 05:15 04/15/21 05:15 Labs: Laboratory Results - last 24 hr 04/14/21 04/14/21 04/15/21 16:06 20:48 05:15 WBC 17.9 H RBC 4.42 Hgb 11.3 L Hct 36.4 L MCV 82.4 MCH 25.6 L MCHC 31.0 RDW 15.7 Plt Count 286 MPV 11.2 Immature Gran % (Auto) 0.9 H Neut % (Auto) 74.6 H Lymph % (Auto) 20.7 [place] % (Auto) 2.7 Eos % (Auto) 1.0 Baso % (Auto) 0.1 Lymph # (Auto) 3.7 [place] # (Auto) 0.5 Eos # (Auto) 0.2 Baso # (Auto) 0.0 Abs Immat Gran (auto) 0.16 H Absolute Neuts (auto) 13.3 H Absolute Nucleated RBC 0.000 Nucleated RBC % (auto) 0.0 D-Dimer VBG pH VBG pCO2 VBG pO2 VBG HCO3 VBG O2 Saturation VBG Base Excess Sodium Potassium Chloride Carbon Dioxide Anion Gap BUN Creatinine Estim Creat Clear Calc Estimated GFR POC Glucose 248 H 257 H Random Glucose Calcium Phosphorus Magnesium Ferritin Lactate Dehydrogenase C-Reactive Protein Albumin 04/15/21 04/15/21 04/15/21 05:15 05:15 05:20 WBC RBC Hgb Hct MCV MCH MCHC RDW Plt Count MPV Immature Gran % (Auto) Neut % (Auto) Lymph % (Auto) [place] % (Auto) Eos % (Auto) Baso % (Auto) Lymph # (Auto) [place] # (Auto) Eos # (Auto) Baso # (Auto) Abs Immat Gran (auto) Absolute Neuts (auto) Absolute Nucleated RBC Nucleated RBC % (auto) D-Dimer 2927 VBG pH 7.55 H VBG pCO2 39 VBG pO2 38 VBG HCO3 34 H VBG O2 Saturation 68.0 VBG Base Excess 11.6 Sodium 142 Potassium 3.2 L Chloride 103 Carbon Dioxide 32 H Anion Gap 10 L BUN 23 H Creatinine 0.68 Estim Creat Clear Calc 73.5 Estimated GFR > 60 POC Glucose Random Glucose 260 H Calcium 9.1 Phosphorus 2.3 L Magnesium 1.9 Ferritin 283 H Lactate Dehydrogenase 369 H C-Reactive Protein 1.21 H Albumin 2.8 L 04/15/21 04/15/21 07:09 11:43 WBC RBC Hgb Hct MCV MCH MCHC RDW Plt Count MPV Immature Gran % (Auto) Neut % (Auto) Lymph % (Auto) [place] % (Auto) Eos % (Auto) Baso % (Auto) Lymph # (Auto) [place] # (Auto) Eos # (Auto) Baso # (Auto) Abs Immat Gran (auto) Absolute Neuts (auto) Absolute Nucleated RBC Nucleated RBC % (auto) D-Dimer VBG pH VBG pCO2 VBG pO2 VBG HCO3 VBG O2 Saturation VBG Base Excess Sodium Potassium Chloride Carbon Dioxide Anion Gap BUN Creatinine Estim Creat Clear Calc Estimated GFR POC Glucose 287 H 230 H Random Glucose Calcium Phosphorus Magnesium Ferritin Lactate Dehydrogenase C-Reactive Protein Albumin Microbiology Microbiology Results: Microbiology 04/12/21 00:00 Urine clean catch - Urine lopez top Urine Culture - Final No growth. 04/12/21 22:59 Blood - Venous Blood Culture - Preliminary No growth after 48 hours. 04/12/21 22:59 Blood - Venous Blood Culture - Preliminary No growth after 48 hours. 04/09/21 09:42 Blood - Venous Blood Culture - Final No growth after 5 days. 04/09/21 09:32 Blood - Venous Blood Culture - Final No growth after 5 days. 04/09/21 19:50 Sputum - Suctioned Gram Stain - Final 04/09/21 19:50 Sputum - Suctioned Sputum Culture - Final Staphylococcus aureus Acinetobacter baumannii 04/05/21 07:25 Blood - Venous Blood Culture - Final No growth after 5 days. 04/05/21 07:25 Blood - Venous Blood Culture - Final No growth after 5 days. 04/05/21 08:42 Urine Catheterized - Rashid Catheter Urine Culture - Final Preethi glabrata 04/05/21 08:42 Sputum - Suctioned Gram Stain - Final 04/05/21 08:42 Sputum - Suctioned Sputum Culture - Final 04/01/21 14:28 Sputum - Suctioned Gram Stain - Final 04/01/21 14:28 Sputum - Suctioned Sputum Culture - Final Preethi albicans 03/26/21 16:43 Blood - Venous Blood Culture - Final No growth after 5 days. 03/27/21 Unknown Urine Catheterized - Rashid Catheter Urine Culture - Final Escherichia coli 03/26/21 16:43 Blood - Venous Blood Culture - Final Escherichia coli Quality Stroke Does the patient have a stroke diagnosis?: No VTE Prior VTE?: No VTE Risk Level:: Medical - moderate - high VTE Device Contraindication: Treatment Not Indicated VTE Drug Contraindication: N/A - Med Ordered Progress Note: A&P Assessment and plan (1) Pneumonia due to Acinetobacter species: Status: Acute (2) Hypernatremia: Status: Acute (3) CVA (cerebral vascular accident): Status: Acute (4) Acute respiratory failure with hypoxemia: Status: Acute (5) Diastolic dysfunction: Status: Acute (6) Acute respiratory distress syndrome (ARDS) due to COVID-19 virus: Status: Acute (7) Encephalopathy: Status: Acute (8) UTI (urinary tract infection): Status: Acute (9) Bacteremia: Status: Acute (10) Lactic acid acidosis: Status: Acute (11) Pneumonia due to COVID-19 virus: Status: Acute (12) Acute hyperglycemia: Status: Acute (13) Acute kidney injury: Status: Acute (14) Respiratory failure with hypoxia: Status: Acute (15) Right hip pain: Status: Acute (16) Nonrheumatic aortic (valve) stenosis: Status: Acute (17) Type 2 diabetes mellitus with unspecified complications: Status: Acute (18) Essential hypertension: Status: Acute (19) Atherosclerotic cardiovascular disease: Status: Acute (20) Non-toxic multinodular goiter: Status: Acute (21) Diabetic polyneuropathy associated with type 2 diabetes mellitus: Status: Acute (22) 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: Status: Acute (23) Diabetes type 2, uncontrolled: Status: Acute (24) COPD (chronic obstructive pulmonary disease): Status: Acute (25) Obese: Status: Acute (26) Dyslipidemia: Status: Acute (27) HTN (hypertension): Status: Acute (28) Right hip pain: Status: Acute (29) Left hip pain: Status: Acute (30) Diabetes: Status: Acute Assessment and Plan: For her diabetes she continues to be fed by NG tube with subcutaneous long and short-acting insulin coverage and antibiotics as above to cover the combination of Bernardo in need of actor and and Staph aureus We continue to watch for yazdanism of mental status as she seems to make little bits of progress each day
[2021-04-15 16:11] LABS: Glucose, Whole Blood 257 mg/dL (60-115)
[2021-04-15] MEDS: levoFLOXacin/D5W 750 MG/150 ML PIGGYBACK 100 MG IV (16:46)
[2021-04-15 22:33] LABS: Glucose, Whole Blood 153 mg/dL (60-115)
[2021-04-16] VITALS (33 sets, daily range): BP systolic 108–178; BP diastolic 41–88; PULSE 78–113; RESP 12–36; TEMP 36.4–38.1; O2SAT 88–100
[2021-04-16 05:24] LABS: VBG Base Excess 10.1 mmol/L; VBG HCO3 33 mmol/L (22-26); VBG pCO2 38 mmHg; VBG pH 7.54 (7.32-7.43); VBG pO2 36 mmHg
[2021-04-16 05:37] LABS: MANUAL DIFF FLAG NO
[2021-04-16 05:41] LABS: Basophils Percent Auto 0.1 % (0-2); Eosinophils Absolute Auto 0.2 X10*3/uL (0.0-0.4); Eosinophils Percent Auto 1.6 % (0-4); Hematocrit 33.4 % (37-47); Hemoglobin 10.4 g/dl (12.0-16.0); Imm Gran Abs Auto 0.12 X10*3/uL (0.00-0.03); Imm Gran Pct Auto 0.8 % (0.0-0.4); Lymphocytes Absolute Auto 3.2 X10*3/uL (1.2-4.9); Lymphocytes Percent Auto 21.8 % (20-40); Mean Corpuscular HGB Conc 31.1 g/dl (31.0-35.0); Mean Corpuscular Hemoglobin 25.3 pg (27.0-33.0); Mean Corpuscular Volume 81.3 fL (80-98); Monocytes Absolute Auto 0.3 X10*3/uL (0.1-1.2); Monocytes Percent Auto 2.1 % (2-11); Neutrophils Absolute Auto 10.7 X10*3/uL (2.0-8.3); Neutrophils Percent Auto 73.6 % (45-73); Platelet Count 274 X10*3/uL (160-400); Red Blood Count 4.11 X10*6/uL (4.20-5.50); Red Cell Distribution Width 15.4 % (11.0-16.0); White Blood Count 14.6 X10*3/uL (4.8-10.8)
[2021-04-16 06:02] LABS: Albumin Level 2.6 g/dL (3.5-5.0); Anion Gap 10 (12-20); Blood Urea Nitrogen 19 mg/dL (9-16); Calcium 9.1 mg/dL (8.4-10.2); Carbon Dioxide 32 mmol/L (22-29); Chloride 100 mmol/L (96-108); Creatinine Clr Calc Pharmacy 83.3; Estimated Glomerular Filt Rate > 60; Glucose Random 199 mg/dL (60-115); Magnesium 1.8 mg/dL (1.6-2.6); Phosphorus 2.8 mg/dL (2.7-4.5); Potassium 3.4 mmol/L (3.3-5.1); Sodium 139 mmol/L (135-145)
[2021-04-16 06:53] LABS: Venous Blood Gas Refer to POC result
--- NOTE | 2021-04-16 07:08 | PC.NURSE ---
shift eval 7p-7a - Patient tolerated high flow, tube feed running w/ ken feed. Temp max 100.6. Otherwise taking pills via ken feed. Mouthcare done. Repos Q2H. Cough and gag improving. Coughing up brown sputum small amts.
[2021-04-16 07:19] LABS: Glucose, Whole Blood 192 mg/dL (60-115)
[2021-04-16] MEDS: Insulin Lispro 100 UNIT/ML 3 ML VIAL SUBCUT ×4 (07:28→21:32)
[2021-04-16] MEDS: 0.9 % Sodium Chloride Flush 3 ML SYRINGE IVFLUSH ×3 (07:28→20:25)
[2021-04-16] MEDS: Aspirin 325 MG TABLET PO (07:29)
[2021-04-16] MEDS: Enoxaparin Sodium 40 MG/0.4 ML SYRINGE SUBCUT (07:29)
[2021-04-16] MEDS: Thiamine HCL 100 MG TABLET 200 MG PO ×2 (07:29→20:25)
[2021-04-16] MEDS: Doxycycline Hyclate 100 MG in 0.9 % Sodium Chloride 250 ML 166.67 MG IV ×2 (07:29→20:25)
[2021-04-16] MEDS: modafiniL 100 MG TABLET 200 MG G-TUBE (07:30)
[2021-04-16] MEDS: Famotidine 20 MG TABLET PO (07:30)
[2021-04-16] MEDS: predniSONE 10 MG TABLET 30 MG PO (07:30)
[2021-04-16] MEDS: Cholecalciferol (Vitamin D3) 25 MCG TABLET 50 MCG PO (07:30)
[2021-04-16] MEDS: carvediloL 12.5 MG TABLET 25 MG PO ×2 (07:31→20:25)
[2021-04-16] MEDS: Atorvastatin Calcium 40 MG TABLET PO (09:02)
[2021-04-16] MEDS: Insulin Glargine,Hum.rec.anlog 100 UNIT/ML 10 ML VIAL 10 UNIT SUBCUT ×2 (09:04→21:32)
--- NOTE | 2021-04-16 09:49 | MHC.CLN ---
Addendum entered by Muna Alfonso, RD 04/16/21 09:59: RECOMMEND ADDING PROSOURCE 30ML BID VIA NG TUBE TO PROVIDE 1320KCALS TOTAL FROM FORMULA AND PROSOURCE, 80G TOTAL PROTEIN (1.45G/KG BASED ON CMW) Original Note: F/U PT RECEIVING GLUCERNA AT MAX GOAL 50ML/HR WITH 120CC FWF Q 4 HRS PROVIDES 1200KCALS (22 KCALS/KG ON CMW), 50G TOTAL PROTEIN (.9G/KG BASED ON CMW), 1743ML TOTAL WATER FROM FORMULA (31.7ML/KG) MONITOR FOR BM; PT PREVIOUSLY WITH HIGH RESIDUALS R/T NO BM CONTINUE TO MONITOR TOLERANCE, RESIDUALS AND LYTES
--- NOTE | 2021-04-16 10:52 | MHC.SLORD ---
Speech Language Pathology Order Status: Attempted to see pt with office copy selector in ICU to re-assess swallow function this date. RN reported that pt has severe motor weakness and liquid presented has fallen out of pt's oral cavity. She also reported that pt has not attempted to verbalize. Pt with KO feeds via the right nare which RN paused during the re-assessment attempt. Despite encouragement from the office copy selector, Aaron, pt declined participation in the re-assessment. She was unable/unwilling to elicit a volitional dry swallow and closed her oral cavity and shook her head no when a drop of water on a tsp was shown to pt. Updated with RN and MD. Pt to remain NPO at this time. DIRECTOR ACUTE will continue to follow pt.
[2021-04-16 11:24] LABS: Glucose, Whole Blood 269 mg/dL (60-115)
[2021-04-16] MEDS: ARIPiprazole 5 MG TABLET PO (14:21)
--- NOTE | 2021-04-16 15:13 | PM.EVENT ---
Event Note Date of Service: 04/16/21 Event Note: Psychiatry consult placed today due to profound post extubation depression. Upon arrival to unit, nurse reports that patient was not answering in full sentences, but minimally following directions at this time. Collateral information received via daughter Lillie (HCP) at [phone]. Daughter reports that patient has long standing history of depression and anxiety. She reports that patient is actively engaged in treatment with both psychiatric prescriber and therapist at [facility]. She states that patient has been prescribed Abilify 5 mg for the past few months. She does not remember the name of the psychiatric medication patient was previously receiving, but reports that her mother has appeared to do well with the abilify. She reports that her mother also was doing well with melatonin at night. She says that prior to getting sick last month, her mother had been to [place] on vacation in November, and had been camping in December. She lives with this daughter and grandchildren, and has been quite active. with her depression and anxiety well managed. She did report that patient has a remote history of inpatient level of care 30 years ago here on [facility], due to a suicide attempt. She states that her mother has continued with depression and anxiety, but has been stable for years. She says she has never stated any type of suicidal ideation or made any attempts for the past 30 years. She says that she spoke with her mother on phone, who told her that she wants to go home, as she misses her family. RECOMMENDATIONS: Reinitiate abilify 5mg daily. I have shared this with Dr. Alecia Birmingham. Psychiatry will follow-up with this patient tomorrow. Thank you.
[2021-04-16 16:05] LABS: Glucose, Whole Blood 257 mg/dL (60-115)
--- NOTE | 2021-04-16 16:07 | P.PNCC_ITS ---
Subjective Subjective Date of Service: 04/16/21 Interval History: 65-year-old moderately obese type 2 diabetic female who was vaccinated but was COVID-19 positive for the pneumonitis/ARDS and acute hypoxemic respiratory failure and encephalopathy as well as acute renal insufficiency Renal insufficiency resolved the encephalopathy was a persistent issue and she has been extubated for several days but for all intents and purposes it is awake and she is being fed via NG tube but she has awakened more and more id but is demonstrably lethargic but fully understands she has had scrap stripper hand for [place] in there with her every day and cognitively has improved each day and she has never had any focal neurologic abnormality but she is refusing to talk for all intents and purposes a state of catatonia and she is refusing to take anything by mouth so we obtained a psychiatric consult who advised us to resume her Abilify because she had been on that for a longstanding history of major depr ession and suicide attempt at some point in her past From a laboratory standpoint she had very minimal hypernatremia at 1:47 a.m. and hypokalemia at 3.0 this was being replaced today and no other issue with a relatively clear chest x-ray just some mild residual a of her ARDS We have started physical therapy and she has visited by swallow each day and we now have psychiatry on board She is on Levaquin because she had a ventilator associated bacterial pneumonia growing acinetabacter as well as methicillin sensitive Staph aureus and urinary tract grew 100,000 colonies of Preethi glabrata which Infectious Disease felt was a colonization and probably at the very least I would entertain changing her Rashid catheter Critical Care Time (minutes): 45 Physical Exam Vital Signs: Vital Signs: Last Vital Signs Temp 99.5 F 04/16/21 16:00 Pulse 90 04/16/21 16:00 Resp 24 H 04/16/21 16:00 BP 167/69 H 04/16/21 16:00 Pulse Ox 94 04/16/21 16:00 Body Mass Index 32.2 She is awake and she is oriented and nonfocal neurologically Catatonic and refusing anything by mouth so she is being fed by NG tube Normal sinus rhythm and cardiac exam shows no neck vein distension and she has good bilateral carotid upstrokes Test without accessory muscle use no and no adventitious sounds Abdomen soft with no organomegaly is intact Objective Data Labs CBC & Chem 7: 04/16/21 05:20 04/16/21 05:20 Labs: Laboratory Results - last 24 hr 04/15/21 04/15/21 04/16/21 16:07 21:42 05:18 WBC RBC Hgb Hct MCV MCH MCHC RDW Plt Count MPV Immature Gran % (Auto) Neut % (Auto) Lymph % (Auto) Craven % (Auto) Eos % (Auto) Baso % (Auto) Lymph # (Auto) Craven # (Auto) Eos # (Auto) Baso # (Auto) Abs Immat Gran (auto) Absolute Neuts (auto) Absolute Nucleated RBC Nucleated RBC % (auto) VBG pH 7.54 H VBG pCO2 38 VBG pO2 36 VBG HCO3 33 H VBG O2 Saturation 62.0 VBG Base Excess 10.1 Sodium Potassium Chloride Carbon Dioxide Anion Gap BUN Creatinine Estim Creat Clear Calc Estimated GFR POC Glucose 257 H 153 H Random Glucose Calcium Phosphorus Magnesium Albumin 04/16/21 04/16/21 04/16/21 05:20 05:20 07:16 WBC 14.6 H RBC 4.11 L Hgb 10.4 L Hct 33.4 L MCV 81.3 MCH 25.3 L MCHC 31.1 RDW 15.4 Plt Count 274 MPV 12.0 Immature Gran % (Auto) 0.8 H Neut % (Auto) 73.6 H Lymph % (Auto) 21.8 Craven % (Auto) 2.1 Eos % (Auto) 1.6 Baso % (Auto) 0.1 Lymph # (Auto) 3.2 Craven # (Auto) 0.3 Eos # (Auto) 0.2 Baso # (Auto) 0.0 Abs Immat Gran (auto) 0.12 H Absolute Neuts (auto) 10.7 H Absolute Nucleated RBC 0.000 Nucleated RBC % (auto) 0.0 VBG pH VBG pCO2 VBG pO2 VBG HCO3 VBG O2 Saturation VBG Base Excess Sodium 139 Potassium 3.4 Chloride 100 Carbon Dioxide 32 H Anion Gap 10 L BUN 19 H Creatinine 0.60 Estim Creat Clear Calc 83.3 Estimated GFR > 60 POC Glucose 192 H Random Glucose 199 H Calcium 9.1 Phosphorus 2.8 Magnesium 1.8 Albumin 2.6 L 04/16/21 04/16/21 11:20 16:00 WBC RBC Hgb Hct MCV MCH MCHC RDW Plt Count MPV Immature Gran % (Auto) Neut % (Auto) Lymph % (Auto) Craven % (Auto) Eos % (Auto) Baso % (Auto) Lymph # (Auto) Craven # (Auto) Eos # (Auto) Baso # (Auto) Abs Immat Gran (auto) Absolute Neuts (auto) Absolute Nucleated RBC Nucleated RBC % (auto) VBG pH VBG pCO2 VBG pO2 VBG HCO3 VBG O2 Saturation VBG Base Excess Sodium Potassium Chloride Carbon Dioxide Anion Gap BUN Creatinine Estim Creat Clear Calc Estimated GFR POC Glucose 269 H 257 H Random Glucose Calcium Phosphorus Magnesium Albumin Microbiology Microbiology Results: Microbiology 04/12/21 00:00 Urine clean catch - Urine lopez top Urine Culture - Final No growth. 04/12/21 22:59 Blood - Venous Blood Culture - Preliminary No growth after 48 hours. 04/12/21 22:59 Blood - Venous Blood Culture - Preliminary No growth after 48 hours. 04/09/21 09:42 Blood - Venous Blood Culture - Final No growth after 5 days. 04/09/21 09:32 Blood - Venous Blood Culture - Final No growth after 5 days. 04/09/21 19:50 Sputum - Suctioned Gram Stain - Final 04/09/21 19:50 Sputum - Suctioned Sputum Culture - Final Staphylococcus aureus Acinetobacter baumannii 04/05/21 07:25 Blood - Venous Blood Culture - Final No growth after 5 days. 04/05/21 07:25 Blood - Venous Blood Culture - Final No growth after 5 days. 04/05/21 08:42 Urine Catheterized - Rashid Catheter Urine Culture - Final Preethi glabrata 04/05/21 08:42 Sputum - Suctioned Gram Stain - Final 04/05/21 08:42 Sputum - Suctioned Sputum Culture - Final 04/01/21 14:28 Sputum - Suctioned Gram Stain - Final 04/01/21 14:28 Sputum - Suctioned Sputum Culture - Final Preethi albicans 03/26/21 16:43 Blood - Venous Blood Culture - Final No growth after 5 days. 03/27/21 Unknown Urine Catheterized - Rashid Catheter Urine Culture - Final Escherichia coli 03/26/21 16:43 Blood - Venous Blood Culture - Final Escherichia coli Quality Stroke Does the patient have a stroke diagnosis?: No VTE Prior VTE?: No VTE Risk Level:: Medical - moderate - high VTE Device Contraindication: Treatment Not Indicated VTE Drug Contraindication: N/A - Med Ordered Progress Note: A&P Assessment and plan (1) Pneumonia due to Acinetobacter species: Status: Acute (2) Hypernatremia: Status: Acute (3) CVA (cerebral vascular accident): Status: Acute (4) Acute respiratory failure with hypoxemia: Status: Acute (5) Diastolic dysfunction: Status: Acute (6) Acute respiratory distress syndrome (ARDS) due to COVID-19 virus: Status: Acute (7) Encephalopathy: Status: Acute (8) UTI (urinary tract infection): Status: Acute (9) Bacteremia: Status: Acute (10) Lactic acid acidosis: Status: Acute (11) Pneumonia due to COVID-19 virus: Status: Acute (12) Acute hyperglycemia: Status: Acute (13) Acute kidney injury: Status: Acute (14) Respiratory failure with hypoxia: Status: Acute (15) Type 2 diabetes mellitus with unspecified complications: Status: Acute (16) Essential hypertension: Status: Acute (17) Non-toxic multinodular goiter: Status: Acute (18) Diabetic polyneuropathy associated with type 2 diabetes mellitus: Status: Acute (19) Diabetes type 2, uncontrolled: Status: Acute (20) COPD (chronic obstructive pulmonary disease): Status: Acute (21) Obese: Status: Acute (22) Dyslipidemia: Status: Acute (23) Major depression: Status: Acute Assessment and Plan: So post extubation she is doing well from lung standpoint and the encephalopathy seems to be clearing she clearly has cognitive function but major depression I think is playing a significant role in her persistent catatonia and refusal to take anything by mouth so we were advised to start her back on her Abilify and psychiatry should be following her She needs to complete a course of Levaquin for the AC needed back to her ventilator associated pneumonia
[2021-04-16] MEDS: levoFLOXacin/D5W 750 MG/150 ML PIGGYBACK 100 MG IV (16:14)
--- NOTE | 2021-04-16 16:41 | PC.NURSE ---
Addendum entered by Molly Waldrop RN 04/16/21 17:46: REPORT GIVEN TO [facility] RN. PATIENTS DAUGHTER TOO CALLED AND UPDATED ON STATUS AND TRANSFER TO [facility]. Original Note: TMAX 100.4, VSS. SR/ST ON TELE. REMAINS ALERT TO NAME ONLY, SECURITY SYSTEM SALES CONSULTANT USED. STILL NOT SPEAKING WORDS, FOLLOWS SIMPLE COMMANDS AND NODS YES AND NO. REFUSED TO OPEN MOUTH FOR SWALLOW EVAL FROM [facility] EVEN WITH SECURITY SYSTEM SALES CONSULTANT BEDSIDE. REMAINS TO ON HIGH FLOW, TITRATED DOWN TO 40L/40%. KEOFEED REMAINS AT 85 AT TIP OF NOSE, DRESSING CHANGED. TUBE FEEDS: GLUCERNA AT 50ML/HR WITH FWF 120 Q4HR AND 1 PACK OF PROSOURCE. NO BM THIS SHIFT. GUERRERO OUTPUT WNL. WORKED WITH PT/OT. RN ASSISTED PATIENT TO [place]IETTA CHAIR FROM [id number]. Q2HR REPO, BATHED, BARRIER CREAM, PREVALON MATTRESS, PILLOWS, WEDGES AND HEELBOS UTILIZED. DOWNGRADED TO [facility], AWAITING A ROOM NUMBER.
--- NOTE | 2021-04-16 17:51 | PM.EVENT ---
Event Note Date of Service: 04/16/21 Event Note: Chart reviewed patient examined. Exam unchanged from earlier today. No acute issues at this time; follow response to Leslie
[2021-04-16 20:56] LABS: Glucose, Whole Blood 163 mg/dL (60-115)
[2021-04-17] VITALS (10 sets, daily range): BP systolic 135–151; BP diastolic 64–98; PULSE 84–93; RESP 18–22; TEMP 36.1–37.9; O2SAT 89–95; BMI 32.5
[2021-04-17] MEDS: Acetaminophen 325 MG TABLET 650 MG PO (05:36)
[2021-04-17 06:20] LABS: Basophils Percent Auto 0.1 % (0-2); Eosinophils Absolute Auto 0.3 X10*3/uL (0.0-0.4); Eosinophils Percent Auto 2.1 % (0-4); Hematocrit 32.6 % (37-47); Hemoglobin 10.3 g/dl (12.0-16.0); Imm Gran Abs Auto 0.15 X10*3/uL (0.00-0.03); Imm Gran Pct Auto 1.1 % (0.0-0.4); Lymphocytes Absolute Auto 2.7 X10*3/uL (1.2-4.9); MANUAL DIFF FLAG NO; Mean Corpuscular HGB Conc 31.6 g/dl (31.0-35.0); Mean Corpuscular Hemoglobin 25.3 pg (27.0-33.0); Mean Corpuscular Volume 80.1 fL (80-98); Monocytes Absolute Auto 0.3 X10*3/uL (0.1-1.2); Monocytes Percent Auto 2.1 % (2-11); Neutrophils Absolute Auto 10.2 X10*3/uL (2.0-8.3); Neutrophils Percent Auto 74.6 % (45-73); Platelet Count 258 X10*3/uL (160-400); Red Blood Count 4.07 X10*6/uL (4.20-5.50); Red Cell Distribution Width 15.3 % (11.0-16.0); White Blood Count 13.6 X10*3/uL (4.8-10.8)
[2021-04-17 06:23] LABS: VBG Base Excess 11.3 mmol/L; VBG HCO3 35 mmol/L (22-26); VBG pCO2 41 mmHg; VBG pH 7.53 (7.32-7.43); VBG pO2 42 mmHg
[2021-04-17 06:28] LABS: Venous Blood Gas Refer to POC result
[2021-04-17 06:29] LABS: Albumin Level 2.4 g/dL (3.5-5.0)
[2021-04-17 06:38] LABS: Anion Gap 8 (12-20); Blood Urea Nitrogen 17 mg/dL (9-16); Calcium 8.8 mg/dL (8.4-10.2); Carbon Dioxide 31 mmol/L (22-29); Chloride 99 mmol/L (96-108); Creatinine Clr Calc Pharmacy 86.2; Estimated Glomerular Filt Rate > 60; Glucose Random 207 mg/dL (60-115); Magnesium 1.7 mg/dL (1.6-2.6); Phosphorus 2.9 mg/dL (2.7-4.5); Potassium 3.3 mmol/L (3.3-5.1); Sodium 135 mmol/L (135-145)
[2021-04-17 07:36] LABS: Glucose, Whole Blood 223 mg/dL (60-115)
[2021-04-17] MEDS: Doxycycline Hyclate 100 MG in 0.9 % Sodium Chloride 250 ML 166.67 MG IV ×2 (09:51→20:46)
[2021-04-17] MEDS: Enoxaparin Sodium 40 MG/0.4 ML SYRINGE SUBCUT (09:51)
[2021-04-17] MEDS: modafiniL 100 MG TABLET 200 MG G-TUBE (09:51)
[2021-04-17] MEDS: ARIPiprazole 5 MG TABLET PO (09:52)
[2021-04-17] MEDS: Cholecalciferol (Vitamin D3) 25 MCG TABLET 50 MCG PO (09:52)
[2021-04-17] MEDS: Famotidine 20 MG TABLET PO (09:52)
[2021-04-17] MEDS: predniSONE 5 MG TABLET 25 MG PO (09:52)
[2021-04-17] MEDS: Atorvastatin Calcium 40 MG TABLET PO (09:52)
[2021-04-17] MEDS: Aspirin 325 MG TABLET PO (09:52)
[2021-04-17] MEDS: Insulin Glargine,Hum.rec.anlog 100 UNIT/ML 10 ML VIAL 10 UNIT SUBCUT ×2 (09:53→20:47)
[2021-04-17] MEDS: Insulin Lispro 100 UNIT/ML 3 ML VIAL SUBCUT ×4 (09:53→20:47)
[2021-04-17] MEDS: Thiamine HCL 100 MG TABLET 200 MG PO ×2 (09:54→20:46)
[2021-04-17] MEDS: carvediloL 12.5 MG TABLET 25 MG PO ×2 (09:54→20:46)
[2021-04-17] MEDS: 0.9 % Sodium Chloride Flush 3 ML SYRINGE IVFLUSH ×3 (09:58→20:47)
[2021-04-17 11:19] LABS: Glucose, Whole Blood 236 mg/dL (60-115)
--- NOTE | 2021-04-17 12:21 | MHC.SL.SWA ---
Speech Pathologist Impression: Risk of Aspiration Oralpharyngeal Dysphagia Risk of Aspiration Due to: Lethargy Medically Fragile History of Pneumonia Hx of Recent Extubation Weak Cough Weak Voice Dysphasia Diet Status: No Change Liquid Consistency and Strategies for Safe Swallow: Liquid Intake Recommendation: NPO Solid Food Consistency: Dietary Recommendations: NPO Oral Medication Intake: NPO Supervision While Eating and Drinking for Safe Swallow: PO with 3RD GRADE TEACHER Swallowing Recommended Treatments: Compens. Strategy Educat. Patient declined PO trials yesterday. Patient as unable/unwilling to elicit volitional dry swallow at that time. RN yesterday reported severe motor weakness and liquid spilled from oral cavity when screening was attempted. Patient continues to receive KO feeds via right nare. Her chest x-ray on 04/16 showed, unchanged multifocal airspace disease the lungs compared with 04/12/21. Patient was seen by [place]ian-speaking 3RD GRADE TEACHER. Patient followed command for volitional dry swallow. Dry swallow was delayed and appeared effortful. Note significantly reduced laryngeal elevation. When given trace water, note complete anterior spillage. Patient then refused, becoming tearful. Recommend continue NPO at this time. 3RD GRADE TEACHER to return tomorrow morning to reevaluate. Rag Willow Operator Clinican/Clinical Fellow: No Supervisory Statement: I have reviewed and agree with the student/clinical fellow's documentation: N/A Speech Language Pathologist: Kenya Quiroz M.A., [facility]-3RD GRADE TEACHER
--- NOTE | 2021-04-17 13:06 | P.CNPS_ITS ---
History of Present Illness Date of Service: 04/17/21 Chief Complaint: COVID pneumonia Reason for Consult: profound post extubation depression Requesting physician: Alceia Birmingham Discussed with referring provider: Yes (on 04/16/21, see event note dated 04/16. ) Sources of Information: patient interviewed and chart reviewed Additional Sources of Information: spoke with daughter Lillie (HCP) on 04/16/21. HPI Narrative: Patient is a 65-year-old Pakistani-speaking female a, with history of depression and anxiety. Was admitted 3 weeks earlier due to COVID positive, ARDS, pneumonia. Was recently extubated. Psychiatry consult was placed due to exacerbation of depressive symptoms. This fiction and nonfiction prose writer attempted to meet with patient yesterday, but was advised by RN that patient was unable to meet, and was not responsive to interview process. I did contact daughter at that time, and was informed that patient has a long history of depression and anxiety. She had been hospitalized approximately 30 years ago on M5, after a suicide attempt. She has been stable in community since that time, and has outpatient providers at [facility]. Daughter reports that patient lives with her and grandchildren. Daughter describes mother as active, has taken multiple trips over the past year, including camping and to [place], and has an upcoming scheduled trip to [place] in May. Daughter reports that mother has been prescribed aripiprazole 5mg daily by her outpatient provider. Call placed to [facility] providers, awaiting response. This fiction and nonfiction prose writer met with patient this morning, along with Pakistani speaking workers compensation paralegal. RN was also present in room. Patient was resting in bed. She was nonverbal, but able to follow commands, and answering yes/no questions appropriately, by shaking her head. She was tearful during encounter. She appeared to understand some questions, but indicated no when asked if she knew where she was. Upon exam of left arm, there was no waxy flexibility present, no motor component that would suggest a true catatonia at this time. Past Psychiatric History: Per daughter, patient had been inpatient on M5 30 years ago after SI attempt. No other IPLOC reported. Patient engaged with outpatient providers at [facility]. Daughter denies any suicidal ideation, self-harming behaviors. Daughter does report that patient has a long-standing history of anxiety and depression. Medical Evaluation Reviewed: Yes Personal & Social History: Lives with daughter and grandchildren. Daughter is material liaison, and HCP. Review of Systems Review of Systems Unable to obtain a full review of systems due to AMS. 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 Substance History: History shows occasional alcohol use (holidays, etc). Former nicotine use Trauma History: unknown Diagnostics Vital Signs (24Hr): Vital Signs - 24 hr 04/16/21 14:00 04/16/21 15:00 04/16/21 15:40 Temperature 99.0 F 99.1 F Pulse Rate 90 90 Respiratory Rate 13 16 30 H Blood Pressure 152/69 H 155/70 H Pulse Oximetry 96 04/16/21 16:00 04/16/21 17:00 04/16/21 17:42 Temperature 99.5 F 99.0 F Pulse Rate 90 90 91 Respiratory Rate 24 H 17 Blood Pressure 167/69 H 167/69 H Pulse Oximetry 94 96 04/16/21 18:15 04/16/21 18:24 04/16/21 19:21 Temperature 97.6 F Pulse Rate 88 Respiratory Rate 24 H 22 H Blood Pressure 178/88 H 155/71 H Pulse Oximetry 91 L 04/16/21 19:33 04/16/21 20:25 04/16/21 23:23 Temperature 97.6 F Pulse Rate 89 89 Respiratory Rate 24 H 22 H Blood Pressure 159/76 H 159/76 H Pulse Oximetry 96 04/16/21 23:47 04/17/21 04:00 04/17/21 04:37 Temperature 98.6 F 100.3 F Pulse Rate 83 93 Respiratory Rate 20 20 22 H Blood Pressure 174/73 H 147/98 H Pulse Oximetry 92 92 04/17/21 07:10 04/17/21 07:24 04/17/21 09:54 Temperature 98.4 F Pulse Rate 87 87 87 Respiratory Rate 18 Blood Pressure 146/71 H 146/71 H 146/71 H Pulse Oximetry 94 94 04/17/21 11:21 Temperature 97.4 F Pulse Rate 85 Respiratory Rate 18 Blood Pressure 151/68 H Pulse Oximetry 95 Body Mass Index 32.5 Labs Results: 04/17/21 05:59 04/17/21 05:59 Labs: Laboratory Results - last 48 hr 04/15/21 04/15/21 04/16/21 16:07 21:42 05:18 WBC RBC Hgb Hct MCV MCH MCHC RDW Plt Count MPV Immature Gran % (Auto) Neut % (Auto) Lymph % (Auto) [place] % (Auto) Eos % (Auto) Baso % (Auto) Lymph # (Auto) [place] # (Auto) Eos # (Auto) Baso # (Auto) Abs Immat Gran (auto) Absolute Neuts (auto) Absolute Nucleated RBC Nucleated RBC % (auto) VBG pH 7.54 H VBG pCO2 38 VBG pO2 36 VBG HCO3 33 H VBG O2 Saturation 62.0 VBG Base Excess 10.1 Sodium Potassium Chloride Carbon Dioxide Anion Gap BUN Creatinine Estim Creat Clear Calc Estimated GFR POC Glucose 257 H 153 H Random Glucose Calcium Phosphorus Magnesium Albumin 04/16/21 04/16/21 04/16/21 05:20 05:20 07:16 WBC 14.6 H RBC 4.11 L Hgb 10.4 L Hct 33.4 L MCV 81.3 MCH 25.3 L MCHC 31.1 RDW 15.4 Plt Count 274 MPV 12.0 Immature Gran % (Auto) 0.8 H Neut % (Auto) 73.6 H Lymph % (Auto) 21.8 [place] % (Auto) 2.1 Eos % (Auto) 1.6 Baso % (Auto) 0.1 Lymph # (Auto) 3.2 [place] # (Auto) 0.3 Eos # (Auto) 0.2 Baso # (Auto) 0.0 Abs Immat Gran (auto) 0.12 H Absolute Neuts (auto) 10.7 H Absolute Nucleated RBC 0.000 Nucleated RBC % (auto) 0.0 VBG pH VBG pCO2 VBG pO2 VBG HCO3 VBG O2 Saturation VBG Base Excess Sodium 139 Potassium 3.4 Chloride 100 Carbon Dioxide 32 H Anion Gap 10 L BUN 19 H Creatinine 0.60 Estim Creat Clear Calc 83.3 Estimated GFR > 60 POC Glucose 192 H Random Glucose 199 H Calcium 9.1 Phosphorus 2.8 Magnesium 1.8 Albumin 2.6 L 04/16/21 04/16/21 04/16/21 11:20 16:00 20:49 WBC RBC Hgb Hct MCV MCH MCHC RDW Plt Count MPV Immature Gran % (Auto) Neut % (Auto) Lymph % (Auto) [place] % (Auto) Eos % (Auto) Baso % (Auto) Lymph # (Auto) [place] # (Auto) Eos # (Auto) Baso # (Auto) Abs Immat Gran (auto) Absolute Neuts (auto) Absolute Nucleated RBC Nucleated RBC % (auto) VBG pH VBG pCO2 VBG pO2 VBG HCO3 VBG O2 Saturation VBG Base Excess Sodium Potassium Chloride Carbon Dioxide Anion Gap BUN Creatinine Estim Creat Clear Calc Estimated GFR POC Glucose 269 H 257 H 163 H Random Glucose Calcium Phosphorus Magnesium Albumin 04/17/21 04/17/21 04/17/21 05:59 05:59 05:59 WBC 13.6 H RBC 4.07 L Hgb 10.3 L Hct 32.6 L MCV 80.1 MCH 25.3 L MCHC 31.6 RDW 15.3 Plt Count 258 MPV 12.0 Immature Gran % (Auto) 1.1 H Neut % (Auto) 74.6 H Lymph % (Auto) 20.0 [place] % (Auto) 2.1 Eos % (Auto) 2.1 Baso % (Auto) 0.1 Lymph # (Auto) 2.7 [place] # (Auto) 0.3 Eos # (Auto) 0.3 Baso # (Auto) 0.0 Abs Immat Gran (auto) 0.15 H Absolute Neuts (auto) 10.2 H Absolute Nucleated RBC 0.000 Nucleated RBC % (auto) 0.0 VBG pH VBG pCO2 VBG pO2 VBG HCO3 VBG O2 Saturation VBG Base Excess Sodium 135 Potassium 3.3 Chloride 99 Carbon Dioxide 31 H Anion Gap 8 L BUN 17 H Creatinine 0.58 Estim Creat Clear Calc 86.2 Estimated GFR > 60 POC Glucose Random Glucose 207 H Calcium 8.8 Phosphorus 2.9 Magnesium 1.7 Albumin 2.4 L 04/17/21 04/17/21 04/17/21 06:18 07:11 11:03 WBC RBC Hgb Hct MCV MCH MCHC RDW Plt Count MPV Immature Gran % (Auto) Neut % (Auto) Lymph % (Auto) [place] % (Auto) Eos % (Auto) Baso % (Auto) Lymph # (Auto) [place] # (Auto) Eos # (Auto) Baso # (Auto) Abs Immat Gran (auto) Absolute Neuts (auto) Absolute Nucleated RBC Nucleated RBC % (auto) VBG pH 7.53 H VBG pCO2 41 VBG pO2 42 VBG HCO3 35 H VBG O2 Saturation 70.0 VBG Base Excess 11.3 Sodium Potassium Chloride Carbon Dioxide Anion Gap BUN Creatinine Estim Creat Clear Calc Estimated GFR POC Glucose 223 H 236 H Random Glucose Calcium Phosphorus Magnesium Albumin Imaging Radiology Impressions: ITS Impressions Venous Duplex 03/26/21 00:05 IMPRESSION: No DVT demonstrated in the bilateral lower extremities. Pulmonary Perfusion Imaging 03/26/21 09:15 IMPRESSION: Normal perfusion study of both lungs with no segmental or subsegmental defects. Chest X-Ray 03/26/21 16:36 IMPRESSION: Commonly reported imaging features of Covid 19 or viral pneumonia are present. Other processes such as influenza pneumonia or organizing pneumonia, as can be seen with drug toxicity and connective tissue disease, can cause a similar imaging pattern. CHF is felt to be less likely. Head CT 03/27/21 00:09 IMPRESSION: No acute intracranial pathology. Chest X-Ray 03/27/21 05:06 IMPRESSION: Worsening bilateral airspace opacities. Chest X-Ray 03/27/21 11:53 IMPRESSION: Bilateral diffuse airspace disease, left greater than right, not appreciably changed from earlier today. Chest X-Ray 03/29/21 11:43 IMPRESSION: 1. Support devices as detailed above. 2. Bilateral airspace opacities without significant change. These are nonspecific, but could be cardiogenic. An infectious/infiltrate process would be less likely but cannot be excluded. Chest X-Ray 04/01/21 14:18 IMPRESSION: Satisfactory position of support line and tubes. No change in bilateral diffuse airspace disease. Chest X-Ray 04/02/21 05:40 IMPRESSION: Endotracheal tube terminates 3.5 cm above the eileen. Central vascular prominence without overt edema. Chest X-Ray 04/04/21 05:00 IMPRESSION: Endotracheal tube terminates 3.5 cm above the eileen. Decreased central vascular prominence. Bronchial wall thickening noted. No dense consolidation. Chest X-Ray 04/04/21 09:35 IMPRESSION: ET tube terminates 3.4 cm from the eileen. Persistent bronchial wall thickening and pulmonary venous congestion. Chest X-Ray 04/05/21 05:00 IMPRESSION: Endotracheal tube terminates 3.5 cm above the eileen. Similar appearance of the lungs with bronchial wall thickening present. Chest X-Ray 04/06/21 05:00 IMPRESSION: Endotracheal tube terminates 2 cm above the eileen. Persistent bronchial wall thickening with faintly increased patchy opacities of the left lower lung. KUB X-Ray 04/06/21 21:03 IMPRESSION: Nonobstructive bowel gas pattern. Large colonic stool burden. Enteric tube terminates over the stomach. Chest X-Ray 04/12/21 11:51 IMPRESSION: 1. The tip of the newly placed feeding tube is seen projecting within the right mid abdomen either within the distal part of the pylorus or proximal part of the duodenum and is projecting superiorly. 2. Patchy bilateral airspace disease, similar to prior study. 3. The right IJ central line tip is projecting at the cavoatrial junction and is unchanged. Chest X-Ray 04/16/21 06:40 IMPRESSION: -Unchanged multifocal airspace disease the lungs compared with 04/12/2021. -Right internal jugular catheter terminating in the region of the cavoatrial junction. -Partially visualized enteric tube terminating within the right upper abdominal quadrant. Mental Status Exam Mental Status Exam Narrative: Well developed, well nourished female, resting in bed. Patient communicated via shaking head yes or no when asked questions. Oriented to person only at this time. Anxious mood, congruent affect, tearful at times. Cooperative with interview. Did not appear to be responding to any type of internal stimuli. Ambulation not observed. No evidence of waxy flexibility or rigidity, no cogwheeling noted. Patient Appearance: Fatigued Patient Orientation: Person Level of Consciousness: Awake, Disoriented and Follows Commands Patient Behavior: Appropriate, Cooperative, Passive, Fatigued, Good Eye Contact and Crying Mood Description: Appropriate and Anxious Affect Description: Appropriate, Depressed and Anxious Patient Cognition Impaired: Yes Ability to Follow Directions: Excellent Speech Pattern: No Speech (able to communicate via shaking head yes/no) Memory Description: Immediate Impaired and Recent Impaired Hallucinations: None Delusions: Not Present Thought Process: Disoriented and Confusion Thought Content: positive for Disoriented Depressive Symptoms: Increased Anxiety and Crying Spells Judgement: Poor Medications Medications Current Medications Acetaminophen (Acetaminophen 325 Mg Tablet) 650 mg PO Q6H PRN PRN Reason: Fever Last Admin: 04/17/21 05:36 Dose: 650 mg Documented by: Aripiprazole (Aripiprazole 5 Mg Tablet) 5 mg PO DAILY [facility] Last Admin: 04/17/21 09:52 Dose: 5 mg Documented by: Aspirin (Aspirin 325 Mg Tablet) 325 mg PO DAILY [facility] Last Admin: 04/17/21 09:52 Dose: 325 mg Documented by: Atorvastatin Calcium (Atorvastatin Calcium 40 Mg Tablet) 40 mg PO DAILY@0900 [facility] Last Admin: 04/17/21 09:52 Dose: 40 mg Documented by: Carvedilol (Carvedilol 12.5 Mg Tablet) 25 mg PO BID [facility]; Protocol Last Admin: 04/17/21 09:54 Dose: 25 mg Documented by: Enoxaparin Sodium (Enoxaparin Sodium 40 Mg/0.4 Ml Syringe) 40 mg SUBCUT DAILY [facility] Last Admin: 04/17/21 09:51 Dose: 40 mg Documented by: Famotidine (Famotidine 20 Mg Tablet) 20 mg PO DAILY [facility] Last Admin: 04/17/21 09:52 Dose: 20 mg Documented by: Doxycycline Hyclate 100 mg/ (Sodium Chloride) 250 mls @ 166.67 mls/hr IV Q12H [facility] Stop: 05/03/21 23:59 Last Infusion: 04/17/21 12:02 Dose: Infused Documented by: Levofloxacin (Levaquin) 750 mg in 150 mls @ 100 mls/hr IV Q24H [facility] Stop: 05/03/21 17:29 Last Infusion: 04/16/21 17:46 Dose: Infused Documented by: Insulin Glargine (Insulin Glargine,Hum.Rec.Anlog 100 Unit/Ml 10 Ml Vial) 10 uni t SUBCUT BID [facility] Last Admin: 04/17/21 09:53 Dose: 10 unit Documented by: Insulin Human Lispro (Insulin Lispro 100 Unit/Ml 3 Ml Vial) 0 unit SUBCUT QIDACHS [facility]; Protocol Last Admin: 04/17/21 12:00 Dose: 4 unit Documented by: Modafinil (Modafinil 100 Mg Tablet) 200 mg G-TUBE DAILY [facility] Last Admin: 04/17/21 09:51 Dose: 200 mg Documented by: Pharmacy Consult (Consult Rx Perform Med Rec) 1 each MISCELLANE ONCE PRN PRN Reason: Consult order Prednisone (Prednisone 5 Mg Tablet) 25 mg PO DAILY [facility] Stop: 04/18/21 09:01 Last Admin: 04/17/21 09:52 Dose: 25 mg Documented by: Prednisone (Prednisone 20 Mg Tablet) 20 mg PO DAILY [facility] Stop: 04/20/21 09:01 Prednisone (Prednisone 5 Mg Tablet) 15 mg PO DAILY [facility] Stop: 04/22/21 09:01 Prednisone (Prednisone 10 Mg Tablet) 10 mg PO DAILY [facility] Stop: 04/24/21 09:01 Prednisone (Prednisone 5 Mg Tablet) 5 mg PO DAILY [facility] Stop: 04/26/21 09:01 Prednisone (Prednisone 2.5 Mg Tablet) 2.5 mg PO DAILY [facility] Stop: 04/28/21 09:01 Sodium Chloride (0.9 % Sodium Chloride Flush 3 Ml Syringe) [address] [facility] Last Admin: 04/17/21 09:58 Dose: 3 ml Documented by: Thiamine HCl (Thiamine Hcl 100 Mg Tablet) 200 mg PO BID [facility] Last Admin: 04/17/21 09:54 Dose: 200 mg Documented by: Vitamin D (Cholecalciferol (Vitamin D3) 25 Mcg Tablet) 50 mcg PO DAILY [facility] Last Admin: 04/17/21 09:52 Dose: 50 mcg Documented by: Allergies Allergies Allergy/AdvReac Type Severity Reaction Status Date / Time morphine [MORPHINE] Allergy Severe HIVES AND Verified 03/12/21 13:09 DIFFICULTY BREATHING, dyspnea, rash Penicillins Allergy Intermediate ITCHING Verified 03/12/21 13:09 Assessment & Plan Assessment & Plan (1) Major depression: Status: Acute Code(s): F32.9 - Major depressive disorder, single episode, unspecified Assessment and Plan: According to family patient has a longstanding history of depression and anxiety disorder. Daughter does not report patient has any history of psychotic illness. Patient is currently unable to answer questions and fully participate in a mental status exam at this time. Lab work is suggestive of metabolic acidosis, which may explain altered mental status at this time. (2) Generalized anxiety disorder: Status: Acute Code(s): F41.1 - Generalized anxiety disorder Assessment and Plan: Recommendations: 1. suggest decreasing abilify to 2mg daily. 2. suggest refrain from use of benzodiazepines. 3. suggest consider neurology consult, possible EEG, to help r/u encephalopathy vs true catatonia at this time. 4. Would also recommend reconsider use of modafinil, may want to d/c. These recommendations have been shared with Dr. Rico Hernandez, via secure messaging system. Thank you for this consultation. We will continue to follow this patient along with you while she is hospitalized. If you have any questions or concerns, please do not hesitate to contact psychiatry service. I spent _60__ minutes with the patient and/or on the patient floor today, greater than?50% of which was spent counseling/coordinating care. Guardian/Caregiver educated on: diagnosis, medication risk/benefits and therapeutic strategies Informed Consent: understands
--- NOTE | 2021-04-17 15:28 | P.PNIM_ITS ---
Subjective Subjective Date of Service: 04/17/21 Interval History: Hemodynamically stable overnight yet remains essentially nonverbal. Review of Systems Per bulk receiver denies chest pain denies shortness of breath denies nausea vomiting diarrhea with head shakes Physical Exam Vital Signs: Vital Signs: Last Vital Signs Temp 96.9 F 04/17/21 15:14 Pulse 84 04/17/21 15:14 Resp 20 04/17/21 15:14 BP 135/66 04/17/21 15:14 Pulse Ox 94 04/17/21 15:14 Body Mass Index 32.5 Const: Other: Appears comfortable; nonverbal HENMT: Other: Membranes moist; and G-tube in place Neck: Other: Right IJ site clean dry and intact Resp: Other: Clear to auscultation bilaterally no rales rhonchi or wheezes Cardio: Other: No S4; positive S1-S2; no S3 murmurs or gallops GI: Other: Soft nontender nondistended with normoactive bowel sounds. No peritoneal signs Extrem: Other: No edema bilaterally Objective Data Active Medications Acetaminophen (Acetaminophen 325 Mg Tablet) 650 mg PO Q6H PRN PRN Reason: Fever Last Admin: 04/17/21 05:36 Dose: 650 mg Documented by: MYLENE Aripiprazole (Aripiprazole 5 Mg Tablet) 5 mg PO DAILY [facility] Last Admin: 04/17/21 09:52 Dose: 5 mg Documented by: CHRIS Aspirin (Aspirin 325 Mg Tablet) 325 mg PO DAILY [facility] Last Admin: 04/17/21 09:52 Dose: 325 mg Documented by: CHRIS Atorvastatin Calcium (Atorvastatin Calcium 40 Mg Tablet) 40 mg PO DAILY@0900 [facility] Last Admin: 04/17/21 09:52 Dose: 40 mg Documented by: CHRIS Carvedilol (Carvedilol 12.5 Mg Tablet) 25 mg PO BID [facility]; Protocol Last Admin: 04/17/21 09:54 Dose: 25 mg Documented by: CHRIS Enoxaparin Sodium (Enoxaparin Sodium 40 Mg/0.4 Ml Syringe) 40 mg SUBCUT DAILY [facility] Last Admin: 04/17/21 09:51 Dose: 40 mg Documented by: CHRIS Famotidine (Famotidine 20 Mg Tablet) 20 mg PO DAILY [facility] Last Admin: 04/17/21 09:52 Dose: 20 mg Documented by: CHRIS Doxycycline Hyclate 100 mg/ (Sodium Chloride) 250 mls @ 166.67 mls/hr IV Q12H [facility] Stop: 05/03/21 23:59 Last Infusion: 04/17/21 12:02 Dose: 0 mls/hr Documented by: CHRIS Levofloxacin (Levaquin) 750 mg in 150 mls @ 100 mls/hr IV Q24H [facility] Stop: 05/03/21 17:29 Last Infusion: 04/16/21 17:46 Dose: 0 mls/hr Documented by: FADI Insulin Glargine (Insulin Glargine,Hum.Rec.Anlog 100 Unit/Ml 10 Ml Vial) 10 un it SUBCUT BID [facility] Last Admin: 04/17/21 09:53 Dose: 10 unit Documented by: CHRIS Comments: Insulin Human Lispro (Insulin Lispro 100 Unit/Ml 3 Ml Vial) 0 unit SUBCUT QI [facility]; Protocol Last Admin: 04/17/21 12:00 Dose: 4 unit Documented by: CHRIS Modafinil (Modafinil 100 Mg Tablet) 200 mg G-TUBE DAILY [facility] Last Admin: 04/17/21 09:51 Dose: 200 mg Documented by: CHRIS Pharmacy Consult (Consult Rx Perform Med Rec) 1 each MISCELLANE ONCE PRN PRN Reason: Consult order Prednisone (Prednisone 5 Mg Tablet) 25 mg PO DAILY [facility] Stop: 04/18/21 09:01 Last Admin: 04/17/21 09:52 Dose: 25 mg Documented by: CHRIS Prednisone (Prednisone 20 Mg Tablet) 20 mg PO DAILY [facility] Stop: 04/20/21 09:01 Prednisone (Prednisone 5 Mg Tablet) 15 mg PO DAILY [facility] Stop: 04/22/21 09:01 Prednisone (Prednisone 10 Mg Tablet) 10 mg PO DAILY [facility] Stop: 04/24/21 09:01 Prednisone (Prednisone 5 Mg Tablet) 5 mg PO DAILY [facility] Stop: 04/26/21 09:01 Prednisone (Prednisone 2.5 Mg Tablet) 2.5 mg PO DAILY [facility] Stop: 04/28/21 09:01 Sodium Chloride (0.9 % Sodium Chloride Flush 3 Ml Syringe) [facility] Last Admin: 04/17/21 09:58 Dose: 3 ml Documented by: CHRIS Thiamine HCl (Thiamine Hcl 100 Mg Tablet) 200 mg PO BID [facility] Last Admin: 04/17/21 09:54 Dose: 200 mg Documented by: CHRIS Vitamin D (Cholecalciferol (Vitamin D3) 25 Mcg Tablet) 50 mcg PO DAILY [facility] Last Admin: 04/17/21 09:52 Dose: 50 mcg Documented by: CHRIS Labs CBC & Chem 7: 04/17/21 05:59 04/17/21 05:59 Labs: Laboratory Results - last 24 hr 04/16/21 04/16/21 04/17/21 16:00 20:49 05:59 MCV 80.1 MCH 25.3 L MCHC 31.6 RDW 15.3 Plt Count 258 MPV 12.0 Immature Gran % (Auto) 1.1 H Neut % (Auto) 74.6 H Lymph % (Auto) 20.0 [place] % (Auto) 2.1 Eos % (Auto) 2.1 Baso % (Auto) 0.1 Lymph # (Auto) 2.7 [place] # (Auto) 0.3 Eos # (Auto) 0.3 Baso # (Auto) 0.0 Abs Immat Gran (auto) 0.15 H Absolute Neuts (auto) 10.2 H Absolute Nucleated RBC 0.000 Nucleated RBC % (auto) 0.0 VBG pH VBG pCO2 VBG pO2 VBG HCO3 VBG O2 Saturation VBG Base Excess Anion Gap Estim Creat Clear Calc Estimated GFR POC Glucose 257 H 163 H Random Glucose Calcium Phosphorus Magnesium Albumin 04/17/21 04/17/21 04/17/21 05:59 05:59 06:18 MCV MCH MCHC RDW Plt Count MPV Immature Gran % (Auto) Neut % (Auto) Lymph % (Auto) [place] % (Auto) Eos % (Auto) Baso % (Auto) Lymph # (Auto) [place] # (Auto) Eos # (Auto) Baso # (Auto) Abs Immat Gran (auto) Absolute Neuts (auto) Absolute Nucleated RBC Nucleated RBC % (auto) VBG pH 7.53 H VBG pCO2 41 VBG pO2 42 VBG HCO3 35 H VBG O2 Saturation 70.0 VBG Base Excess 11.3 Anion Gap 8 L Estim Creat Clear Calc 86.2 Estimated GFR > 60 POC Glucose Random Glucose 207 H Calcium 8.8 Phosphorus 2.9 Magnesium 1.7 Albumin 2.4 L 04/17/21 04/17/21 07:11 11:03 MCV MCH MCHC RDW Plt Count MPV Immature Gran % (Auto) Neut % (Auto) Lymph % (Auto) [place] % (Auto) Eos % (Auto) Baso % (Auto) Lymph # (Auto) [place] # (Auto) Eos # (Auto) Baso # (Auto) Abs Immat Gran (auto) Absolute Neuts (auto) Absolute Nucleated RBC Nucleated RBC % (auto) VBG pH VBG pCO2 VBG pO2 VBG HCO3 VBG O2 Saturation VBG Base Excess Anion Gap Estim Creat Clear Calc Estimated GFR POC Glucose 223 H 236 H Random Glucose Calcium Phosphorus Magnesium Albumin Assessment and Plan (1) Major depression: Status: Acute (2) Pneumonia due to Acinetobacter species: Status: Acute (3) Encephalopathy: Status: Acute Assessment and Plan: Interval History: 65-year-old moderately obese type 2 diabetic female who was vaccinated but was COVID-19 positive for the pneumonitis/ARDS and acute hypoxemic respiratory failure and encephalopathy as well as acute renal insufficiency Renal insufficiency resolved the encephalopathy was a persistent issue and she has been extubated for several days but for all intents and purposes it is awake and she is being fed via NG tube but she has awakened more and more id but is demonstrably lethargic but fully understands she has had bulk receiver for [place]ian in there with her every day and cognitively has improved each day and she has never had any focal neurologic abnormality but she is refusing to talk for all intents and purposes a state of catatonia and she is refusing to take anything by mouth so we obtained a psychiatric consult who advised us to resume her Abilify because she had been on that for a longstanding history of major depression and suicide attempt at some point in her past From a laboratory standpoint she had very minimal hypernatremia at 1:47 a.m. and hypokalemia at 3.0 this was being replaced today and no other issue with a relatively clear chest x-ray just some mild residual a of her ARDS We have started physical therapy and she has visited by swallow each day and we now have psychiatry on board She is on Levaquin because she had a ventilator associated bacterial pneumonia growing acinetabacter as well as methicillin sensitive Staph aureus and urinary tract grew 100,000 colonies of Preethi glabrata which Infectious Disease felt was a colonization and probably at the very least I would entertain changing her Rashid catheter Transferred to floor 04/16/2021; has been hemodynamically stable but essentially nonverbal 1.VAP Stable at this time. Will continue IV Levaquin/doxycycline given swallowing status. Will adjust the p.o. when appropriate 2.SUDEEP Return to baseline; will continue IV fluids until taking adequate p.o. Continue to follow labs 3. ?Encephalopathy; appreciate psych input Consult neurology to rule out pathological versus catatonic state 4.Covid -19 Continue prednisone taper as outlined by Critical Care 5.DMII Insulin as ordered. Adjust as indicated 6.HTN Acceptable control off therapies. Continue follow-up clinically Full code DVT prophylaxis; ByteActive Stroke Does the patient have a stroke diagnosis?: No VTE Prior VTE?: No VTE Risk Level:: Medical - moderate - high VTE Device Contraindication: Treatment Not Indicated VTE Drug Contraindication: N/A - Med Ordered
[2021-04-17] MEDS: levoFLOXacin/D5W 750 MG/150 ML PIGGYBACK 100 MG IV (16:00)
[2021-04-17 16:12] LABS: Glucose, Whole Blood 273 mg/dL (60-115)
[2021-04-17 19:44] LABS: Glucose, Whole Blood 219 mg/dL (60-115)
[2021-04-18] VITALS (10 sets, daily range): BP systolic 123–166; BP diastolic 61–89; PULSE 54–94; RESP 18–24; TEMP 36.1–36.6; O2SAT 90–95
[2021-04-18 05:31] LABS: MANUAL DIFF FLAG NO
[2021-04-18 05:34] LABS: Basophils Percent Auto 0.1 % (0-2); Eosinophils Absolute Auto 0.3 X10*3/uL (0.0-0.4); Eosinophils Percent Auto 1.8 % (0-4); Hematocrit 33.3 % (37-47); Hemoglobin 10.8 g/dl (12.0-16.0); Imm Gran Abs Auto 0.18 X10*3/uL (0.00-0.03); Imm Gran Pct Auto 1.1 % (0.0-0.4); Lymphocytes Absolute Auto 2.4 X10*3/uL (1.2-4.9); Mean Corpuscular HGB Conc 32.4 g/dl (31.0-35.0); Mean Corpuscular Hemoglobin 25.8 pg (27.0-33.0); Mean Corpuscular Volume 79.5 fL (80-98); Mean Platelet Volume 11.5 fL (9.4-12.3); Monocytes Absolute Auto 0.3 X10*3/uL (0.1-1.2); Monocytes Percent Auto 1.6 % (2-11); Neutrophils Absolute Auto 12.7 X10*3/uL (2.0-8.3); Neutrophils Percent Auto 80.4 % (45-73); Platelet Count 277 X10*3/uL (160-400); Red Blood Count 4.19 X10*6/uL (4.20-5.50); Red Cell Distribution Width 15.9 % (11.0-16.0); White Blood Count 15.8 X10*3/uL (4.8-10.8)
[2021-04-18 05:35] LABS: Venous Blood Gas Refer to POC result
[2021-04-18 05:36] LABS: VBG Base Excess 10.3 mmol/L; VBG HCO3 33 mmol/L (22-26); VBG pCO2 37 mmHg; VBG pH 7.55 (7.32-7.43); VBG pO2 60 mmHg
[2021-04-18 05:51] LABS: Alanine Aminotransferase 21 U/L (0-31); Albumin Level 2.5 g/dL (3.5-5.0); Alkaline Phosphatase 110 U/L (39-117); Anion Gap 9 (12-20); Aspartate Amino Transferase 28 U/L (5-31); Bilirubin Total 0.3 mg/dL (0.0-1.0); Blood Urea Nitrogen 12 mg/dL (9-16); Calcium 8.8 mg/dL (8.4-10.2); Carbon Dioxide 31 mmol/L (22-29); Chloride 99 mmol/L (96-108); Creatinine Clr Calc Pharmacy 88.1; Estimated Glomerular Filt Rate > 60; Glucose Random 194 mg/dL (60-115); Magnesium 1.8 mg/dL (1.6-2.6); Phosphorus 2.8 mg/dL (2.7-4.5); Potassium 3.2 mmol/L (3.3-5.1); Sodium 136 mmol/L (135-145); Total Protein 5.8 g/dL (6.5-8.0)
[2021-04-18 07:23] LABS: Glucose, Whole Blood 205 mg/dL (60-115)
[2021-04-18] MEDS: Insulin Lispro 100 UNIT/ML 3 ML VIAL SUBCUT ×4 (08:28→20:34)
[2021-04-18] MEDS: 0.9 % Sodium Chloride Flush 3 ML SYRINGE IVFLUSH ×3 (08:29→20:34)
[2021-04-18] MEDS: Doxycycline Hyclate 100 MG in 0.9 % Sodium Chloride 250 ML 166.67 MG IV ×2 (08:29→20:31)
--- NOTE | 2021-04-18 08:40 | MHC.CM.PN ---
Female 65 DX Covid, S/P intubation in ICU. Oxygen wean in progress. Patient is requiring 6L today. DP Pricila via BLS.
--- NOTE | 2021-04-18 10:16 | MHC.SL.DTX ---
Pre-Treatment Diet: NPO Subjective: Changes made to current diet?: No: No Change Dysphasia Diet Status: No Change Liquid Consistency and Strategies: Liquid Intake Recommendation: NPO Compensatory Strategies for Safe Swallow: - Continue with HOB at 30 degrees and frequent oral care. Solid Food Consistency: Dietary Recommendations: NPO Additional Modifications to Solids: Oral Medication Intake: NPO Supervision While Eating and/Drinking: PO with PLY CUTTER Swallowing Recommended Treatments: Compens. Strategy Educat. Level of Impact on: Daily activities: Severe Interpersonal interactions: Severe Community: Severe Prognosis for Improvement: Guarded Recommendation for Speech: Comment: Patient was seen for bedside dysphagia evaluation on 04/15/21. Patient was intubated 03/29/21 - 04/11/21. Patient was extubated to high flow nasal cannula successfully. Patient failed nursing swallow screenings on 04/11 and 04/12. Per RN report, patient requires suctioning and has weak cough. Patient presented with dried secretions on lips and tongue. Patient was provided with oral care with mouthwash and swab. No swallow with mouthwash, but noted gurgly throat sound. Patient was asked to initiate volitional swallow. Patient attempted swallow and this appeared effortful. However, upon palpation, no laryngeal elevation. Patient was asked to produce cough. Patient has extremely weak cough. Patient would not be able to protect airway. No PO trials administered due to patient's need for suctioning, absent swallow trigger, and extremely weak cough. 04/16/21- Patient declined PO trials. Patient as unable/unwilling to elicit volitional dry swallow at that time. RN yesterday reported severe motor weakness and liquid spilled from oral cavity when screening was attempted. Patient continues to receive KO feeds via right nare. Her chest x-ray on 04/16 showed, unchanged multifocal airspace disease the lungs compared with 04/12/21. 04/17/21- Patient was seen by Maltese-speaking PLY CUTTER. Patient followed command for volitional dry swallow. Dry swallow was delayed and appeared effortful. Note significantly reduced laryngeal elevation. When given trace water, note complete anterior spillage. Patient then refused, becoming tearful. 04/18: RN reported that pt has been tearful with all care provided, including flushing her IV. Pt was seen by psychiatry 04/17 at which time pt was diagnosed with major depressive disorder. Her medications were adjusted. Pt seen with child adolescent care, Aaron, present. Pt immediately began crying once this PLY CUTTER and Aaron arrived to her room. She was unable to verbalize why she was upset. Pt declined trace amount of water presented several times, shaking her head no and turning her head away from this clinician. Pt demonstrated 2 instances of a severely wet, non productive, cough. Pt was encouraged to expel sputum into a cup, though she was unable. Updated with RN re: pt's refusal to trial PO. Pt to continue NPO at this time. KO feeds via the right nare continue. PLY CUTTER will continue to follow pt. Assessment: Dry House Attendant Clinican/Clinical Fellow: No Supervisory Statement: I have reviewed and agree with the student/clinical fellow's documentation: N/A Speech Language Pathologist: Rachael Cardenas M.A., [facility]
[2021-04-18] MEDS: Thiamine HCL 100 MG TABLET 200 MG PO ×2 (10:42→20:32)
[2021-04-18] MEDS: Cholecalciferol (Vitamin D3) 25 MCG TABLET 50 MCG PO (10:42)
[2021-04-18] MEDS: Atorvastatin Calcium 40 MG TABLET PO (10:43)
[2021-04-18] MEDS: ARIPiprazole 2 MG TABLET PO (10:43)
[2021-04-18] MEDS: modafiniL 100 MG TABLET 200 MG G-TUBE (10:43)
[2021-04-18] MEDS: Aspirin 325 MG TABLET PO (10:43)
[2021-04-18] MEDS: Enoxaparin Sodium 40 MG/0.4 ML SYRINGE SUBCUT (10:44)
[2021-04-18] MEDS: Insulin Glargine,Hum.rec.anlog 100 UNIT/ML 10 ML VIAL 10 UNIT SUBCUT ×2 (10:44→20:33)
[2021-04-18] MEDS: Famotidine 20 MG TABLET PO (10:44)
[2021-04-18] MEDS: predniSONE 5 MG TABLET 25 MG PO (10:44)
[2021-04-18] MEDS: carvediloL 12.5 MG TABLET 25 MG PO ×2 (10:45→20:32)
[2021-04-18 11:28] LABS: Glucose, Whole Blood 166 mg/dL (60-115)
--- NOTE | 2021-04-18 12:58 | PM.PNPUL ---
Subjective Subjective Date of Service: 04/18/21 Principal diagnosis: kvng Interval history: The patient was seen on exam. She appears severely to respond to simple questions by nodding and shaking her head. Denies any pain. Denies any difficulty with her breathing. She has a hard time speaking which could have been due to vocal cord injury well having the prolonged intubation. The patient also is dependent on NG tube based on the fact that she is not taking by mouth. She continues to be very tearful. Objective Data Labs CBC & Chem 7: 04/18/21 05:27 04/18/21 05:27 Labs: Laboratory Results - last 24 hr 04/17/21 04/17/21 04/18/21 16:07 19:33 05:27 WBC 15.8 H RBC 4.19 L Hgb 10.8 L Hct 33.3 L MCV 79.5 L MCH 25.8 L MCHC 32.4 RDW 15.9 Plt Count 277 MPV 11.5 Immature Gran % (Auto) 1.1 H Neut % (Auto) 80.4 H Lymph % (Auto) 15.0 L [place] % (Auto) 1.6 L Eos % (Auto) 1.8 Baso % (Auto) 0.1 Lymph # (Auto) 2.4 [place] # (Auto) 0.3 Eos # (Auto) 0.3 Baso # (Auto) 0.0 Abs Immat Gran (auto) 0.18 H Absolute Neuts (auto) 12.7 H Absolute Nucleated RBC 0.000 Nucleated RBC % (auto) 0.0 VBG pH VBG pCO2 VBG pO2 VBG HCO3 VBG O2 Saturation VBG Base Excess Sodium Potassium Chloride Carbon Dioxide Anion Gap BUN Creatinine Estim Creat Clear Calc Estimated GFR POC Glucose 273 H 219 H Random Glucose Calcium Phosphorus Magnesium Total Bilirubin AST ALT Alkaline Phosphatase Total Protein Albumin 04/18/21 04/18/21 04/18/21 05:27 05:31 07:09 WBC RBC Hgb Hct MCV MCH MCHC RDW Plt Count MPV Immature Gran % (Auto) Neut % (Auto) Lymph % (Auto) [place] % (Auto) Eos % (Auto) Baso % (Auto) Lymph # (Auto) [place] # (Auto) Eos # (Auto) Baso # (Auto) Abs Immat Gran (auto) Absolute Neuts (auto) Absolute Nucleated RBC Nucleated RBC % (auto) VBG pH 7.55 H VBG pCO2 37 VBG pO2 60 VBG HCO3 33 H VBG O2 Saturation 90.0 VBG Base Excess 10.3 Sodium 136 Potassium 3.2 L Chloride 99 Carbon Dioxide 31 H Anion Gap 9 L BUN 12 Creatinine 0.57 Estim Creat Clear Calc 88.1 Estimated GFR > 60 POC Glucose 205 H Random Glucose 194 H Calcium 8.8 Phosphorus 2.8 Magnesium 1.8 Total Bilirubin 0.3 AST 28 ALT 21 Alkaline Phosphatase 110 Total Protein 5.8 L Albumin 2.5 L 04/18/21 11:17 WBC RBC Hgb Hct MCV MCH MCHC RDW Plt Count MPV Immature Gran % (Auto) Neut % (Auto) Lymph % (Auto) [place] % (Auto) Eos % (Auto) Baso % (Auto) Lymph # (Auto) [place] # (Auto) Eos # (Auto) Baso # (Auto) Abs Immat Gran (auto) Absolute Neuts (auto) Absolute Nucleated RBC Nucleated RBC % (auto) VBG pH VBG pCO2 VBG pO2 VBG HCO3 VBG O2 Saturation VBG Base Excess Sodium Potassium Chloride Carbon Dioxide Anion Gap BUN Creatinine Estim Creat Clear Calc Estimated GFR POC Glucose 166 H Random Glucose Calcium Phosphorus Magnesium Total Bilirubin AST ALT Alkaline Phosphatase Total Protein Albumin Microbiology Microbiology Results: Microbiology 04/12/21 22:59 Blood - Venous Blood Culture - Final No growth after 5 days. 04/12/21 22:59 Blood - Venous Blood Culture - Final No growth after 5 days. 04/12/21 00:00 Urine clean catch - Urine lopez top Urine Culture - Final No growth. 04/09/21 09:42 Blood - Venous Blood Culture - Final No growth after 5 days. 04/09/21 09:32 Blood - Venous Blood Culture - Final No growth after 5 days. 04/09/21 19:50 Sputum - Suctioned Gram Stain - Final 04/09/21 19:50 Sputum - Suctioned Sputum Culture - Final Staphylococcus aureus Acinetobacter baumannii 04/05/21 07:25 Blood - Venous Blood Culture - Final No growth after 5 days. 04/05/21 07:25 Blood - Venous Blood Culture - Final No growth after 5 days. 04/05/21 08:42 Urine Catheterized - Rashid Catheter Urine Culture - Final Preethi glabrata 04/05/21 08:42 Sputum - Suctioned Gram Stain - Final 04/05/21 08:42 Sputum - Suctioned Sputum Culture - Final 04/01/21 14:28 Sputum - Suctioned Gram Stain - Final 04/01/21 14:28 Sputum - Suctioned Sputum Culture - Final Preethi albicans 03/26/21 16:43 Blood - Venous Blood Culture - Final No growth after 5 days. 03/27/21 Unknown Urine Catheterized - Rashid Catheter Urine Culture - Final Escherichia coli 03/26/21 16:43 Blood - Venous Blood Culture - Final Escherichia coli Review of Systems Review of Systems Yes Unobtainable due to mental status Reports Abnormal speech present Physical Exam Vital Signs: Vital Signs: Last Vital Signs Temp 98 F 04/18/21 11:17 Pulse 92 04/18/21 11:17 Resp 19 04/18/21 11:17 BP 143/73 H 04/18/21 10:45 Pulse Ox 91 L 04/18/21 12:00 Body Mass Index 32.5 Const: General: awake, anxious and tired appearing; No in distress HENMT: General nose exam: Other nasal findings present (NG tube in place) Eyes: Pupils: Equal, round and reactive pupils present Neck: Neck: Yes normal visual inspection, Yes full ROM and Yes no lymphadenopathy Chest: Chest palpation & inspection: normal inspection of the chest Resp: Auscultation: diminished lung sounds Cardio: Rate: regular rate Rhythm: regular rhythm Heart sounds: S1 normal heart sound present and S2 normal heart sound present GI: Palpation (GI): Soft to palpation and nontender Auscultation: normal bowel sounds Skin: General skin exam: rashes and/or lesions noted Neuro: Cranial nerves: Yes Equal, round and reactive pupils present Speech: Abnormal speech present complete aphasia Procedures Date of Service Date of Service: 04/18/21 Assessment and Plan Assessment and plan (1) Pneumonia due to COVID-19 virus: Status: Acute (2) Encephalopathy: Status: Acute (3) Respiratory failure with hypoxia: Status: Acute Assessment and Plan: Requesting CXR VBG to assess for hypercapnea d/c's Modafinil Time Spent With Patient Time: Total time spent is greater than 50% in coordination of care (as documented) at patient's floor/unit and/or counseling patient: Time with patient: 25 - 35 minutes Progress Note: Quality Stroke Does the patient have a stroke diagnosis?: No
[2021-04-18 13:35] LABS: Venous Blood Gas Refer to POC result
[2021-04-18 13:35] LABS: VBG Base Excess 11.1 mmol/L; VBG HCO3 35 mmol/L (22-26); VBG pCO2 44 mmHg; VBG pH 7.51 (7.32-7.43); VBG pO2 44 mmHg
--- NOTE | 2021-04-18 15:29 | MHC.CLN ---
Addendum entered by Felipa Giraldo, MARY 04/18/21 16:50: IF GLUCERNA NOT AVAILABLE, MAY USE PROMOTE FORMULA. RECOMMEND PROMOTE AT MAX GOAL RATE OF 50 ML/HOUR. PROVIDES 1200 KCAL (21.8 KCAL/KG BASED ON CMW), 75 G PROTEIN (1.36 G/KG BASED ON CMW), 1007 ML FREE WATER. DISCONTINUE PROSOURCE BID SINCE PROMOTE IS A HIGHER PROTEIN FORMULA. Original Note: F/U PT RECEIVING GLUCERNA AT MAX GOAL 50ML/HR WITH 120 ML FREE WATER FLUSH Q 4 HRS, AND PROSOURCE 30 ML BID. PROVIDES 1320 KCALS (24 KCALS/KG BASED ON CMW), 80 G TOTAL PROTEIN (1.45/KG BASED ON CMW), 1743 ML TOTAL WATER FROM FORMULA (31.7 ML/KG). NO BM NOTED SINCE 04/15. CONTINUE TO MONITOR TOLERANCE, RESIDUALS AND LYTES.
[2021-04-18] MEDS: levoFLOXacin/D5W 750 MG/150 ML PIGGYBACK 100 MG IV (15:43)
--- NOTE | 2021-04-18 16:03 | HO.PM.IMPN ---
Subjective Subjective Date of Service: 04/18/21 Interval History: Hemodynamically stable overnight yet remains essentially nonverbal; speech attempted bedside eval but pt uncooperative Review of Systems Nonverbal. Per staff quiet overnight. Denies chest pain shortness of breath nausea vomiting diarrhea Physical Exam Vital Signs: Vital Signs: Last Vital Signs Temp 96.9 F 04/18/21 15:17 Pulse 86 04/18/21 15:17 Resp 22 H 04/18/21 15:17 BP 149/73 H 04/18/21 15:17 Pulse Ox 92 04/18/21 15:17 Body Mass Index 32.5 Const: Other: Appears comfortable; nonverbal..tearful. HENMT: Other: Membranes moist; and G-tube in place Neck: Other: Right IJ site clean dry and intact Resp: Other: Clear to auscultation bilaterally no rales rhonchi or wheezes Cardio: Other: No S4; positive S1-S2; no S3 murmurs or gallops GI: Other: Soft nontender nondistended with normoactive bowel sounds. No peritoneal signs Extrem: Other: No edema bilaterally Objective Data Active Medications Acetaminophen (Acetaminophen 325 Mg Tablet) 650 mg PO Q6H PRN PRN Reason: Fever Last Admin: 04/17/21 05:36 Dose: 650 mg Documented by: MYLENE Aripiprazole (Aripiprazole 2 Mg Tablet) 2 mg PO DAILY [facility] Last Admin: 04/18/21 10:43 Dose: 2 mg Documented by: LUCRECIA Aspirin (Aspirin 325 Mg Tablet) 325 mg PO DAILY [facility] Last Admin: 04/18/21 10:43 Dose: 325 mg Documented by: LUCRECIA Atorvastatin Calcium (Atorvastatin Calcium 40 Mg Tablet) 40 mg PO DAILY@0900 [facility] Last Admin: 04/18/21 10:43 Dose: 40 mg Documented by: LUCRECIA Carvedilol (Carvedilol 12.5 Mg Tablet) 25 mg PO BID [facility]; Protocol Last Admin: 04/18/21 10:45 Dose: 25 mg Documented by: LUCRECIA Enoxaparin Sodium (Enoxaparin Sodium 40 Mg/0.4 Ml Syringe) 40 mg SUBCUT DAILY [facility] Last Admin: 04/18/21 10:44 Dose: 40 mg Documented by: LUCRECIA Famotidine (Famotidine 20 Mg Tablet) 20 mg PO DAILY [facility] Last Admin: 04/18/21 10:44 Dose: 20 mg Documented by: LUCRECIA Doxycycline Hyclate 100 mg/ (Sodium Chloride) 250 mls @ 166.67 mls/hr IV Q12H [facility] Stop: 05/03/21 23:59 Last Infusion: 04/18/21 11:12 Dose: 0 mls/hr Documented by: LUCRECIA Levofloxacin (Levaquin) 750 mg in 150 mls @ 100 mls/hr IV Q24H [facility] Stop: 05/03/21 17:29 Last Admin: 04/18/21 15:43 Dose: 100 mls/hr Documented by: REHANA Insulin Glargine (Insulin Glargine,Hum.Rec.Anlog 100 Unit/Ml 10 Ml Vial) 10 unit SUBCUT BID [facility] Last Admin: 04/18/21 10:44 Dose: 10 unit Documented by: LUCRECIA Insulin Human Lispro (Insulin Lispro 100 Unit/Ml 3 Ml Vial) 0 unit SUBCUT QIDACHS [facility]; Protocol Last Admin: 04/18/21 11:31 Dose: 2 unit Documented by: LUCRECIA Pharmacy Consult (Consult Rx Perform Med Rec) 1 each MISCELLANE ONCE PRN PRN Reason: Consult order Prednisone (Prednisone 20 Mg Tablet) 20 mg PO DAILY [facility] Stop: 04/20/21 09:01 Prednisone (Prednisone 5 Mg Tablet) 15 mg PO DAILY [facility] Stop: 04/22/21 09:01 Prednisone (Prednisone 10 Mg Tablet) 10 mg PO DAILY [facility] Stop: 04/24/21 09:01 Prednisone (Prednisone 5 Mg Tablet) 5 mg PO DAILY [facility] Stop: 04/26/21 09:01 Prednisone (Prednisone 2.5 Mg Tablet) 2.5 mg PO DAILY [facility] Stop: 04/28/21 09:01 Sodium Chloride (0.9 % Sodium Chloride Flush 3 Ml Syringe) 3 ml IVFLUSH QSHIFT [facility] Last Admin: 04/18/21 15:44 Dose: 3 ml Documented by: REHANA Thiamine HCl (Thiamine Hcl 100 Mg Tablet) 200 mg PO BID [facility] Last Admin: 04/18/21 10:42 Dose: 200 mg Documented by: LUCRECIA Vitamin D (Cholecalciferol (Vitamin D3) 25 Mcg Tablet) 50 mcg PO DAILY [facility] Last Admin: 04/18/21 10:42 Dose: 50 mcg Documented by: JANETH Labs CBC & Chem 7: 04/18/21 05:27 04/18/21 05:27 Labs: Laboratory Results - last 24 hr 04/17/21 04/17/21 04/18/21 16:07 19:33 05:27 MCV 79.5 L MCH 25.8 L MCHC 32.4 RDW 15.9 Plt Count 277 MPV 11.5 Immature Gran % (Auto) 1.1 H Neut % (Auto) 80.4 H Lymph % (Auto) 15.[address] [place] % (Auto) 1.6 L Eos % (Auto) 1.8 Baso % (Auto) 0.1 Lymph # (Auto) 2.4 [place] # (Auto) 0.3 Eos # (Auto) 0.3 Baso # (Auto) 0.0 Abs Immat Gran (auto) 0.18 H Absolute Neuts (auto) 12.7 H Absolute Nucleated RBC 0.000 Nucleated RBC % (auto) 0.0 VBG pH VBG pCO2 VBG pO2 VBG HCO3 VBG O2 Saturation VBG Base Excess Anion Gap Estim Creat Clear Calc Estimated GFR POC Glucose 273 H 219 H Random Glucose Calcium Phosphorus Magnesium Total Bilirubin AST ALT Alkaline Phosphatase Total Protein Albumin 04/18/21 04/18/21 04/18/21 05:27 05:31 07:09 MCV MCH MCHC RDW Plt Count MPV Immature Gran % (Auto) Neut % (Auto) Lymph % (Auto) [place] % (Auto) Eos % (Auto) Baso % (Auto) Lymph # (Auto) [place] # (Auto) Eos # (Auto) Baso # (Auto) Abs Immat Gran (auto) Absolute Neuts (auto) Absolute Nucleated RBC Nucleated RBC % (auto) VBG pH 7.55 H VBG pCO2 37 VBG pO2 60 VBG HCO3 33 H VBG O2 Saturation 90.0 VBG Base Excess 10.3 Anion Gap 9 L Estim Creat Clear Calc 88.1 Estimated GFR > 60 POC Glucose 205 H Random Glucose 194 H Calcium 8.8 Phosphorus 2.8 Magnesium 1.8 Total Bilirubin 0.3 AST 28 ALT 21 Alkaline Phosphatase 110 Total Protein 5.8 L Albumin 2.5 L 04/18/21 04/18/21 11:17 13:28 MCV MCH MCHC RDW Plt Count MPV Immature Gran % (Auto) Neut % (Auto) Lymph % (Auto) [place] % (Auto) Eos % (Auto) Baso % (Auto) Lymph # (Auto) [place] # (Auto) Eos # (Auto) Baso # (Auto) Abs Immat Gran (auto) Absolute Neuts (auto) Absolute Nucleated RBC Nucleated RBC % (auto) VBG pH 7.51 H VBG pCO2 44 VBG pO2 44 VBG HCO3 35 H VBG O2 Saturation 72.0 VBG Base Excess 11.1 Anion Gap Estim Creat Clear Calc Estimated GFR POC Glucose 166 H Random Glucose Calcium Phosphorus Magnesium Total Bilirubin AST ALT Alkaline Phosphatase Total Protein Albumin Microbiology Microbiology Results: Microbiology 04/12/21 22:59 Blood Culture - Final Blood - Venous No growth after 5 days. 04/12/21 22:59 Blood Culture - Final Blood - Venous No growth after 5 days. Assessment and Plan (1) Pneumonia due to Acinetobacter species: Status: Acute (2) CVA (cerebral vascular accident): Status: Acute (3) Acute respiratory failure with hypoxemia: Status: Acute Assessment and Plan: Interval History: 65-year-old moderately obese type 2 diabetic female who was vaccinated but was COVID-19 positive for the pneumonitis/ARDS and acute hypoxemic respiratory failure and encephalopathy as well as acute renal insufficiency.Transferred to floor 04/16/2021; has been hemodynamically stable but essentially nonverbal. NG tube remains in secondary to noncompliance with therapies. 1.VAP Stable at this time. Will continue IV Levaquin/doxycycline given swallowing status. Will adjust the p.o. when appropriate 2.SUDEEP Return to baseline; will continue IV fluids until taking adequate p.o. Continue to follow labs 3. ?Encephalopathy; appreciate psych input Consult neurology to rule out pathological versus catatonic state; no changes in staus overnight. 4.Covid -19 Continue prednisone taper as outlined by Critical Care 5.DMII Insulin as ordered. Adjust as indicated 6.HTN Acceptable control off therapies. Continue follow-up clinically Full code DVT prophylaxis; IPXI Quality Stroke Does the patient have a stroke diagnosis?: No VTE Prior VTE?: No VTE Risk Level:: Medical - moderate - high VTE Device Contraindication: Treatment Not Indicated VTE Drug Contraindication: N/A - Med Ordered
[2021-04-18 16:15] LABS: Glucose, Whole Blood 256 mg/dL (60-115)
[2021-04-18 20:01] LABS: Glucose, Whole Blood 257 mg/dL (60-115)
[2021-04-19] VITALS (8 sets, daily range): BP systolic 116–176; BP diastolic 54–88; PULSE 78–92; RESP 18–20; TEMP 36.2–36.8; O2SAT 92–99; BMI 31.7
[2021-04-19] MEDS: Acetaminophen 325 MG TABLET 650 MG PO ×2 (02:05→20:33)
[2021-04-19 06:46] LABS: VBG Base Excess 9.3 mmol/L; VBG HCO3 33 mmol/L (22-26); VBG pCO2 44 mmHg; VBG pH 7.48 (7.32-7.43); VBG pO2 56 mmHg
[2021-04-19 06:48] LABS: Venous Blood Gas Refer to POC result
[2021-04-19 07:23] LABS: MANUAL DIFF FLAG NO
[2021-04-19 07:25] LABS: Glucose, Whole Blood 201 mg/dL (60-115)
[2021-04-19 07:34] LABS: Basophils Percent Auto 0.1 % (0-2); Eosinophils Absolute Auto 0.2 X10*3/uL (0.0-0.4); Eosinophils Percent Auto 1.6 % (0-4); Hematocrit 31.1 % (37-47); Hemoglobin 9.9 g/dl (12.0-16.0); Imm Gran Abs Auto 0.14 X10*3/uL (0.00-0.03); Imm Gran Pct Auto 1.1 % (0.0-0.4); Lymphocytes Absolute Auto 2.3 X10*3/uL (1.2-4.9); Mean Corpuscular HGB Conc 31.8 g/dl (31.0-35.0); Mean Corpuscular Hemoglobin 25.8 pg (27.0-33.0); Mean Corpuscular Volume 81.2 fL (80-98); Mean Platelet Volume 12.1 fL (9.4-12.3); Monocytes Absolute Auto 0.3 X10*3/uL (0.1-1.2); Monocytes Percent Auto 2.5 % (2-11); Neutrophils Percent Auto 76.7 % (45-73); Platelet Count 247 X10*3/uL (160-400); Red Blood Count 3.83 X10*6/uL (4.20-5.50); Red Cell Distribution Width 16.1 % (11.0-16.0)
[2021-04-19 07:57] LABS: Albumin Level 2.4 g/dL (3.5-5.0); Anion Gap 11 (12-20); Blood Urea Nitrogen 17 mg/dL (9-16); Calcium 8.9 mg/dL (8.4-10.2); Carbon Dioxide 30 mmol/L (22-29); Chloride 97 mmol/L (96-108); Creatinine Clr Calc Pharmacy 82.7; Estimated Glomerular Filt Rate > 60; Glucose Random 198 mg/dL (60-115); Magnesium 1.9 mg/dL (1.6-2.6); Phosphorus 3.4 mg/dL (2.7-4.5); Potassium 3.2 mmol/L (3.3-5.1); Sodium 135 mmol/L (135-145)
[2021-04-19] MEDS: Atorvastatin Calcium 40 MG TABLET PO (08:25)
[2021-04-19] MEDS: Thiamine HCL 100 MG TABLET 200 MG PO ×2 (08:25→20:30)
[2021-04-19] MEDS: Enoxaparin Sodium 40 MG/0.4 ML SYRINGE SUBCUT (08:25)
[2021-04-19] MEDS: ARIPiprazole 2 MG TABLET PO (08:25)
[2021-04-19] MEDS: Aspirin 325 MG TABLET PO (08:25)
[2021-04-19] MEDS: predniSONE 20 MG TABLET PO (08:26)
[2021-04-19] MEDS: Famotidine 20 MG TABLET PO (08:26)
[2021-04-19] MEDS: Insulin Lispro 100 UNIT/ML 3 ML VIAL SUBCUT ×4 (08:26→20:31)
[2021-04-19] MEDS: Cholecalciferol (Vitamin D3) 25 MCG TABLET 50 MCG PO (08:26)
[2021-04-19] MEDS: carvediloL 12.5 MG TABLET 25 MG PO ×2 (08:26→20:28)
[2021-04-19] MEDS: Doxycycline Hyclate 100 MG in 0.9 % Sodium Chloride 250 ML 166.67 MG IV ×2 (08:27→20:31)
[2021-04-19] MEDS: Insulin Glargine,Hum.rec.anlog 100 UNIT/ML 10 ML VIAL 10 UNIT SUBCUT ×2 (08:27→20:30)
[2021-04-19] MEDS: 0.9 % Sodium Chloride Flush 3 ML SYRINGE IVFLUSH ×2 (08:27→23:55)
[2021-04-19 11:22] LABS: Glucose, Whole Blood 244 mg/dL (60-115)
--- NOTE | 2021-04-19 13:27 | P.PNIM_ITS ---
Subjective Subjective Date of Service: 04/19/21 Interval History: Hemodynamically stable overnight yet remains essentially nonverbal; more alert today Review of Systems Nonverbal. Per staff quiet overnight. Denies chest pain shortness of breath nausea vomiting diarrhea Physical Exam Vital Signs: Vital Signs: Last Vital Signs Temp 97.2 F 04/19/21 11:35 Pulse 82 04/19/21 11:35 Resp 19 04/19/21 11:35 BP 146/74 H 04/19/21 11:35 Pulse Ox 93 04/19/21 11:35 Body Mass Index 31.7 Const: Other: Appears comfortable; nonverbal..tearful. HENMT: Other: Membranes moist; and G-tube in place Neck: Other: Right IJ site clean dry and intact Resp: Other: Clear to auscultation bilaterally no rales rhonchi or wheezes Cardio: Other: No S4; positive S1-S2; no S3 murmurs or gallops GI: Other: Soft nontender nondistended with normoactive bowel sounds. No peritoneal signs Extrem: Other: No edema bilaterally Objective Data Active Medications Acetaminophen (Acetaminophen 325 Mg Tablet) 650 mg PO Q6H PRN PRN Reason: Fever Last Admin: 04/19/21 02:05 Dose: 650 mg Documented by: EMILY Aripiprazole (Aripiprazole 2 Mg Tablet) 2 mg PO DAILY [facility] BEDS AT [facility] Last Admin: 04/19/21 08:25 Dose: 2 mg Documented by: ZENON Aspirin (Aspirin 325 Mg Tablet) 325 mg PO DAILY [facility] 234 BEDS AT [facility] Last Admin: 04/19/21 08:25 Dose: 325 mg Documented by: ZENON Atorvastatin Calcium (Atorvastatin Calcium 40 Mg Tablet) 40 mg PO DAILY@0900 [facility] 234 BEDS AT [facility] Last Admin: 04/19/21 08:25 Dose: 40 mg Documented by: ZENON Carvedilol (Carvedilol 12.5 Mg Tablet) 25 mg PO BID [facility] 234 BEDS AT [facility]; Protocol Last Admin: 04/19/21 08:26 Dose: 25 mg Documented by: ZENON Enoxaparin Sodium (Enoxaparin Sodium 40 Mg/0.4 Ml Syringe) 40 mg SUBCUT DAILY [facility] 234 BEDS AT [facility] Last Admin: 04/19/21 08:25 Dose: 40 mg Documented by: ZENON Famotidine (Famotidine 20 Mg Tablet) 20 mg PO DAILY [facility] 234 BEDS AT [facility] Last Admin: 04/19/21 08:26 Dose: 20 mg Documented by: ZENON Doxycycline Hyclate 100 mg/ (Sodium Chloride) 250 mls @ 166.67 mls/hr IV Q12H [facility] 234 BEDS AT [facility] Stop: 05/03/21 23:59 Last Infusion: 04/19/21 10:32 Dose: 0 mls/hr Documented by: ZENON Levofloxacin (Levaquin) 750 mg in 150 mls @ 100 mls/hr IV Q24H [facility] 234 B[facility]S AT [facility] Stop: 05/03/21 17:29 Last Infusion: 04/18/21 18:04 Dose: 0 mls/hr Documented by: LUCRECIA Insulin Glargine (Insulin Glargine,Hum.Rec.Anlog 100 Unit/Ml 10 Ml Vial) 10 unit SUBCUT BID [facility] 234 BEDS AT [facility] Last Admin: 04/19/21 08:27 Dose: 10 unit Documented by: ZENON Insulin Human Lispro (Insulin Lispro 100 Unit/Ml 3 Ml Vial) 0 unit SUBCUT [facility]; Protocol Last Admin: 04/19/21 11:46 Dose: 4 unit Documented by: ZENON Pharmacy Consult (Consult Rx Perform Med Rec) 1 each MISCELLANE ONCE PRN PRN Reason: Consult order Prednisone (Prednisone 20 Mg Tablet) 20 mg PO DAILY [facility] 234 BEDS AT [facility] Stop: 04/20/21 09:01 Last Admin: 04/19/21 08:26 Dose: 20 mg Documented by: ZENON Prednisone (Prednisone 5 Mg Tablet) 15 mg PO DAILY [facility] 234 BEDS AT [facility] Stop: 04/22/21 09:01 Prednisone (Prednisone 10 Mg Tablet) 10 mg PO DAILY [facility] 234 BEDS AT [facility] Stop: 04/24/21 09:01 Prednisone (Prednisone 5 Mg Tablet) 5 mg PO DAILY [facility] 234 BEDS AT [facility] Stop: 04/26/21 09:01 Prednisone (Prednisone 2.5 Mg Tablet) 2.5 mg PO DAILY [facility] 234 BEDS AT [facility] Stop: 04/28/21 09:01 Sodium Chloride (0.9 % Sodium Chloride Flush 3 Ml Syringe) [facility] Last Admin: 04/19/21 08:27 Dose: 3 ml Documented by: ZENON Thiamine HCl (Thiamine Hcl 100 Mg Tablet) 200 mg PO BID [facility] 234 BEDS AT [facility] Last Admin: 04/19/21 08:25 Dose: 200 mg Documented by: ZENON Vitamin D (Cholecalciferol (Vitamin D3) 25 Mcg Tablet) 50 mcg PO DAILY [facility] Last Admin: 04/19/21 08:26 Dose: 50 mcg Documented by: ZENON Labs CBC & Chem 7: 04/19/21 06:34 04/19/21 06:34 Labs: Laboratory Results - last 24 hr 04/18/21 04/18/21 04/18/21 13:28 16:08 19:58 MCV MCH MCHC RDW Plt Count MPV Immature Gran % (Auto) Neut % (Auto) Lymph % (Auto) [place] % (Auto) Eos % (Auto) Baso % (Auto) Lymph # (Auto) [place] # (Auto) Eos # (Auto) Baso # (Auto) Abs Immat Gran (auto) Absolute Neuts (auto) Absolute Nucleated RBC Nucleated RBC % (auto) VBG pH 7.51 H VBG pCO2 44 VBG pO2 44 VBG HCO3 35 H VBG O2 Saturation 72.0 VBG Base Excess 11.1 Anion Gap Estim Creat Clear Calc Estimated GFR POC Glucose 256 H 257 H Random Glucose Calcium Phosphorus Magnesium Albumin 04/19/21 04/19/21 04/19/21 06:34 06:34 06:40 MCV 81.2 MCH 25.8 L MCHC 31.8 RDW 16.1 H Plt Count 247 MPV 12.1 Immature Gran % (Auto) 1.1 H Neut % (Auto) 76.7 H Lymph % (Auto) 18.0 L [place] % (Auto) 2.5 Eos % (Auto) 1.6 Baso % (Auto) 0.1 Lymph # (Auto) 2.3 [place] # (Auto) 0.3 Eos # (Auto) 0.2 Baso # (Auto) 0.0 Abs Immat Gran (auto) 0.14 H Absolute Neuts (auto) 10.0 H Absolute Nucleated RBC 0.000 Nucleated RBC % (auto) 0.0 VBG pH 7.48 H VBG pCO2 44 VBG pO2 56 VBG HCO3 33 H VBG O2 Saturation 86.0 VBG Base Excess 9.3 Anion Gap 11 L Estim Creat Clear Calc 82.7 Estimated GFR > 60 POC Glucose Random Glucose 198 H Calcium 8.9 Phosphorus 3.4 Magnesium 1.9 Albumin 2.4 L 04/19/21 04/19/21 07:17 11:15 MCV MCH MCHC RDW Plt Count MPV Immature Gran % (Auto) Neut % (Auto) Lymph % (Auto) [place] % (Auto) Eos % (Auto) Baso % (Auto) Lymph # (Auto) [place] # (Auto) Eos # (Auto) Baso # (Auto) Abs Immat Gran (auto) Absolute Neuts (auto) Absolute Nucleated RBC Nucleated RBC % (auto) VBG pH VBG pCO2 VBG pO2 VBG HCO3 VBG O2 Saturation VBG Base Excess Anion Gap Estim Creat Clear Calc Estimated GFR POC Glucose 201 H 244 H Random Glucose Calcium Phosphorus Magnesium Albumin Assessment and Plan (1) Generalized anxiety disorder: Status: Acute (2) CVA (cerebral vascular accident): Status: Acute (3) Pneumonia due to COVID-19 virus: Status: Acute Assessment and Plan: Interval History: 65-year-old moderately obese type 2 diabetic female who was vaccinated but was COVID-19 positive for the pneumonitis/ARDS and acute hypoxemic respiratory failure and encephalopathy as well as acute renal insufficiency.Transferred to floor 04/16/2021; has been hemodynamically stable but essentially nonverbal. NG tube remains in secondary to noncompliance with therapies. 1.VAP Stable at this time. Will continue IV Levaquin/doxycycline given swallowing status. Will adjust the p.o. when appropriate 2.SUDEEP Return to baseline; will continue IV fluids until taking adequate p.o. Continue to follow labs 3. ?Encephalopathy; appreciate psych input More alert today. Will DC triple-lumen an NG tube and re-attempt introduce orals to patient. Discussed with daughter; if patient will not response to th hakeem therapies will likely need PEG tube and placement 4.Covid -19 Continue prednisone taper as outlined by Critical Care 5.DMII Insulin as ordered. Adjust as indicated 6.HTN Acceptable control off therapies. Continue follow-up clinically Full code DVT prophylaxis; Jalbum Quality Stroke Does the patient have a stroke diagnosis?: No VTE Prior VTE?: No VTE Risk Level:: Medical - moderate - high VTE Device Contraindication: Treatment Not Indicated VTE Drug Contraindication: N/A - Med Ordered
--- NOTE | 2021-04-19 14:24 | PC.NURSE ---
TLC to RIJ removed per MD. Tip visualized and intact. Continuous telemetry and o2 sat monitoring, o2 remained in the mid 90s on 4L NC, HR remained in the 80s. Patient tolerated well. Occlusive dgs applied. New 22 G peripheral IV placed in the right wrist. Primary RN aware.
[2021-04-19 16:21] LABS: Glucose, Whole Blood 227 mg/dL (60-115)
--- NOTE | 2021-04-19 16:50 | P.CNNE_ITS ---
History of Present Illness Data of Consult Service Date: 04/19/21 Primary Care Provider: Anali Negron MD HPI Reason for consult: Patient is not speaking This is a 65-year-old woman with history of generalized anxiety due depression who was admitted with pneumonia and was positive for COVID. There is some re mote history of a CVA which is not well documented, history of diabetes hypertension COPD obesity dyslipidemia who had some acute hypoglycemic events and is now out of the ICU and on the floor and is generally improving still has an NG tube but she is not speaking. Review of Systems Review of Systems: Nonverbal. Per staff quiet overnight. Denies chest pain shortness of breath nausea vomiting diarrhea Yes unobtainable due to endotracheal tube, Unobtainable due to mental condition and Unobtainable due to mental status Neurologic: Reports Abnormal speech present (The patient understands and follows commands but does not verbalize) PMFSH Past Medical History Medical History Arthritis Atherosclerotic cardiovascular disease CAD (coronary artery disease) COPD (chronic obstructive pulmonary disease) CVA (cerebral vascular accident) Diabetes Diabetes type 2, uncontrolled Diabetic polyneuropathy associated with type 2 diabetes mellitus Dyslipidemia Essential hypertension GERD (gastroesophageal reflux disease) History of headache HTN (hypertension) Hx of osteopenia Hx of solitary pulmonary nodule 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 Sister No problems noted. Son No problems noted. Daughter No problems noted. Family history: reviewed and not pertinent Surgical History Surgical History H/O colonoscopy History of PTCA Hx of appendectomy Hx of cataract extraction Hx of section Hx of cholecystectomy Hx of heart artery stent Social History Social History Household Members: Family Housing: House Do you presently have visiting nurse or other home services: No Alcohol intake: current Alcohol intake frequency: holidays/special occasions only Patient Tobacco Use Status: Former Tobacco user Cigarette Packs Per Day: 1 Cigarettes Per Day: 20.0 Years Smoked: 30 service: No Current occupational status: disabled Meds Allergies Allergy/AdvReac Type Severity Reaction Status Date / Time morphine [MORPHINE] Allergy Severe HIVES AND Verified 03/12/21 13:09 DIFFICULTY BREATHING, dyspnea, rash Penicillins Allergy Intermediate ITCHING Verified 03/12/21 13:09 Active Medications: Current Medications Acetaminophen (Acetaminophen 325 Mg Tablet) 650 mg PO Q6H PRN PRN Reason: Fever Last Admin: 04/19/21 02:05 Dose: 650 mg Documented by: Aripiprazole (Aripiprazole 2 Mg Tablet) 2 mg PO DAILY [facility] Last Admin: 04/19/21 08:25 Dose: 2 mg Documented by: Aspirin (Aspirin 325 Mg Tablet) 325 mg PO DAILY [facility] Last Admin: 04/19/21 08:25 Dose: 325 mg Documented by: Atorvastatin Calcium (Atorvastatin Calcium 40 Mg Tablet) 40 mg PO DAILY@0900 [facility] Last Admin: 04/19/21 08:25 Dose: 40 mg Documented by: Carvedilol (Carvedilol 12.5 Mg Tablet) 25 mg PO BID [facility]; Protocol Last Admin: 04/19/21 08:26 Dose: 25 mg Documented by: Enoxaparin Sodium (Enoxaparin Sodium 40 Mg/0.4 Ml Syringe) 40 mg SUBCUT DAILY [facility] Last Admin: 04/19/21 08:25 Dose: 40 mg Documented by: Famotidine (Famotidine 20 Mg Tablet) 20 mg PO DAILY [facility] Last Admin: 04/19/21 08:26 Dose: 20 mg Documented by: Doxycycline Hyclate 100 mg/ (Sodium Chloride) 250 mls @ 166.67 mls/hr IV Q12H [facility] Stop: 05/03/21 23:59 Last Infusion: 04/19/21 10:32 Dose: Infused Documented by: Levofloxacin (Levaquin) 750 mg in 150 mls @ 100 mls/hr IV Q24H [facility] Stop: 05/03/21 17:29 Last Infusion: 04/18/21 18:04 Dose: Infused Documented by: Insulin Glargine (Insulin Glargine,Hum.Rec.Anlog 100 Unit/Ml 10 Ml Vial) 10 unit SUBCUT BID [facility] Last Admin: 04/19/21 08:27 Dose: 10 unit Documented by: Insulin Human Lispro (Insulin Lispro 100 Unit/Ml 3 Ml Vial) 0 unit SUBCUT QIDACHS [facility]; Protocol Last Admin: 04/19/21 11:46 Dose: 4 unit Documented by: Pharmacy Consult (Consult Rx Perform Med Rec) 1 each MISCELLANE ONCE PRN PRN Reason: Consult order Prednisone (Prednisone 20 Mg Tablet) 20 mg PO DAILY [facility] Stop: 04/20/21 09:01 Last Admin: 04/19/21 08:26 Dose: 20 mg Documented by: Prednisone (Prednisone 5 Mg Tablet) 15 mg PO DAILY [facility] Stop: 04/22/21 09:01 Prednisone (Prednisone 10 Mg Tablet) 10 mg PO DAILY [facility] Stop: 04/24/21 09:01 Prednisone (Prednisone 5 Mg Tablet) 5 mg PO DAILY [facility] Stop: 04/26/21 09:01 Prednisone (Prednisone 2.5 Mg Tablet) 2.5 mg PO DAILY [facility] Stop: 04/28/21 09:01 Sodium Chloride (0.9 % Sodium Chloride Flush 3 Ml Syringe) [facility] Last Admin: 04/19/21 08:27 Dose: 3 ml Documented by: Thiamine HCl (Thiamine Hcl 100 Mg Tablet) 200 mg PO BID [facility] Last Admin: 04/19/21 08:25 Dose: 200 mg Documented by: Vitamin D (Cholecalciferol (Vitamin D3) 25 Mcg Tablet) 50 mcg PO DAILY [facility] Last Admin: 04/19/21 08:26 Dose: 50 mcg Documented by: Home Medications Medication Instructions Recorded Confirmed Last Taken Type aripiprazole 5 mg tablet 5 mg PO DAILY 05/07/20 03/26/21 Unknown History docusate sodium 100 mg capsule 100 mg PO BID 05/07/20 03/26/21 Unknown History sennosides 8.6 mg tablet (senna) 8.6 mg PO BEDTIME 05/07/20 03/26/21 Unknown History lisinopril 5 mg tablet 5 mg PO DAILY 10/24/20 03/26/21 Unknown History acetaminophen 325 mg tablet 650 mg PO Q6H PRN 03/26/21 03/26/21 Unknown History aspirin 81 mg tablet,delayed 1 tab PO DAILY 04/02/21 04/02/21 Unknown History release Physical Exam Vital Signs: Vital Signs: Last Vital Signs Temp 98.3 F 04/19/21 15:25 Pulse 84 04/19/21 15:25 Resp 18 04/19/21 15:25 BP 154/73 H 04/19/21 15:25 Pulse Ox 97 04/19/21 15:25 Body Mass Index 31.7 Const: Other: Appears comfortable; nonverbal..tearful. General: cooperative, no acute distress, alert, awake, anxious, tired appearing and other (Sedated on the vent, agitated with sedation vacation); No in distress HENMT: Other: Membranes moist; and G-tube in place Head: Yes normal to inspection General nose exam: Other nasal findings present (NG tube in place) Mouth: lip normal Eyes: General: appearance normal, both eyes and all related structures Sclerae: sclerae normal Pupils: Equal, round and reactive pupils present EOM: EOMs intact bilaterally Neck: Other: Right IJ site clean dry and intact Neck: Yes normal visual inspection, Yes full ROM, Yes no lymphadenopathy, Yes trachea midline and Yes supple Chest: Chest palpation & inspection: normal inspection of the chest Resp: Other: Clear to auscultation bilaterally no rales rhonchi or wheezes Effort & Inspection: normal respiratory effort and no respiratory distress Auscultation: crackles (Diffuse bilateral) and diminished lung sounds Cardio: Other: No S4; positive S1-S2; no S3 murmurs or gallops Rate: regular rate Rhythm: regular rhythm Heart sounds: S1 normal heart sound present, S2 normal heart sound present, no gallops, no murmurs and no rubs GI: Other: Soft nontender nondistended with normoactive bowel sounds. No peritoneal signs Palpation (GI): Soft to palpation, nontender and Other GI palpation findings present ( Nontender) Auscultation: normal bowel sounds Skin: General skin exam: rashes and/or lesions noted Neuro: Other: She is awake and alert and follows simple commands. She will indicate by hand movements but does not verbalize. There is no facial asymmetry and she protrudes her tongue and moves her palate to command. Her exam is nonfocal. General: no focal motor deficits Cranial nerves: Yes Equal, round and reactive pupils present Speech: Abnormal speech present (The patient understands and follows commands but does not verbalize) Extrem: Other: No edema bilaterally General: Yes no pedal edema, No clubbing, No cyanosis and Yes pedal edema (1+ bilateral) Results Labs CBC & Chem 7: 04/19/21 06:34 04/19/21 06:34 Labs: Short CBC 04/19/21 Range/Units 06:34 WBC 13.0 H (4.8-10.8) X10*3/uL Hgb 9.9 L (12.0-16.0) g/dl Hct 31.1 L (37-47) % Plt Count 247 (160-400) X10*3/uL BMP 04/19/21 06:34 Sodium 135 Potassium 3.2 L Chloride 97 Carbon Dioxide 30 H BUN 17 H Creatinine 0.60 Calcium 8.9 Liver Function 04/19/21 Range/Units 06:34 Albumin 2.4 L (3.5-5.0) g/dL Microbiology Microbiology Results: Microbiology 04/12/21 22:59 Blood - Venous Blood Culture - Final No growth after 5 days. 04/12/21 22:59 Blood - Venous Blood Culture - Final No growth after 5 days. 04/12/21 00:00 Urine clean catch - Urine lopez top Urine Culture - Final No growth. 04/09/21 09:42 Blood - Venous Blood Culture - Final No growth after 5 days. 04/09/21 09:32 Blood - Venous Blood Culture - Final No growth after 5 days. 04/09/21 19:50 Sputum - Suctioned Gram Stain - Final 04/09/21 19:50 Sputum - Suctioned Sputum Culture - Final Staphylococcus aureus Acinetobacter baumannii 04/05/21 07:25 Blood - Venous Blood Culture - Final No growth after 5 days. 04/05/21 07:25 Blood - Venous Blood Culture - Final No growth after 5 days. 04/05/21 08:42 Urine Catheterized - Rashid Catheter Urine Culture - Final Preethi glabrata 04/05/21 08:42 Sputum - Suctioned Gram Stain - Final 04/05/21 08:42 Sputum - Suctioned Sputum Culture - Final 04/01/21 14:28 Sputum - Suctioned Gram Stain - Final 04/01/21 14:28 Sputum - Suctioned Sputum Culture - Final Preethi albicans 03/26/21 16:43 Blood - Venous Blood Culture - Final No growth after 5 days. 03/27/21 Unknown Urine Catheterized - Rashid Catheter Urine Culture - Final Escherichia coli 03/26/21 16:43 Blood - Venous Blood Culture - Final Escherichia coli Assessment and Plan (1) Generalized anxiety disorder: Status: Acute (2) CVA (cerebral vascular accident): Status: Acute It is unclear if she has expressive aphasia or some mechanical reason for not speaking. I would recommend a CT scan of the brain or MRI whichever the patient can tolerate to rule out a left frontotemporal abnormality. (3) Pneumonia due to COVID-19 virus: Status: Acute Interval History: 65-year-old moderately obese type 2 diabetic female who was vaccinated but was COVID-19 positive for the pneumonitis/ARDS and acute hypoxemic respiratory failure and encephalopathy as well as acute renal insufficiency.Transferred to floor 04/16/2021; has been hemodynamically stable but essentially nonverbal. NG tube remains in secondary to noncompliance with therapies. 1.VAP Stable at this time. Will continue IV Levaquin/doxycycline given swallowing status. Will adjust the p.o. when appropriate 2.SUDEEP Return to baseline; will continue IV fluids until taking adequate p.o. Continue to follow labs 3. ?Encephalopathy; appreciate psych input More alert today. Will DC triple-lumen an NG tube and re-attempt introduce orals to patient. Discussed with daughter; if patient will not response to these therapies will likely need PEG tube and placement 4.Covid -19 Continue prednisone taper as outlined by Critical Care 5.DMII Insulin as ordered. Adjust as indicated 6.HTN Acceptable control off therapies. Continue follow-up clinically Full code DVT prophylaxis; Lovenox Procedures Date of Service Date of Service: 04/19/21
[2021-04-19] MEDS: levoFLOXacin/D5W 750 MG/150 ML PIGGYBACK 100 MG IV (17:09)
[2021-04-19 20:17] LABS: Glucose, Whole Blood 209 mg/dL (60-115)
[2021-04-20] VITALS (8 sets, daily range): BP systolic 135–163; BP diastolic 58–87; PULSE 75–90; RESP 18–20; TEMP 35.8–37.2; O2SAT 87–94; BMI 31.9
[2021-04-20 06:08] LABS: MANUAL DIFF FLAG NO
[2021-04-20 06:10] LABS: Basophils Percent Auto 0.1 % (0-2); Eosinophils Absolute Auto 0.1 X10*3/uL (0.0-0.4); Eosinophils Percent Auto 1.5 % (0-4); Hematocrit 33.6 % (37-47); Hemoglobin 10.7 g/dl (12.0-16.0); Imm Gran Pct Auto 1.1 % (0.0-0.4); Lymphocytes Absolute Auto 1.7 X10*3/uL (1.2-4.9); Lymphocytes Percent Auto 17.4 % (20-40); Mean Corpuscular HGB Conc 31.8 g/dl (31.0-35.0); Mean Corpuscular Hemoglobin 26.2 pg (27.0-33.0); Mean Corpuscular Volume 82.4 fL (80-98); Monocytes Absolute Auto 0.3 X10*3/uL (0.1-1.2); Monocytes Percent Auto 2.9 % (2-11); Neutrophils Absolute Auto 7.3 X10*3/uL (2.0-8.3); Platelet Count 241 X10*3/uL (160-400); Red Blood Count 4.08 X10*6/uL (4.20-5.50); Red Cell Distribution Width 16.2 % (11.0-16.0); White Blood Count 9.5 X10*3/uL (4.8-10.8)
[2021-04-20 06:14] LABS: VBG Base Excess 11.1 mmol/L; VBG HCO3 35 mmol/L (22-26); VBG pCO2 43 mmHg; VBG pH 7.51 (7.32-7.43); VBG pO2 67 mmHg
[2021-04-20 06:17] LABS: Venous Blood Gas Refer to POC result
[2021-04-20 06:49] LABS: Albumin Level 2.4 g/dL (3.5-5.0); Anion Gap 8 (12-20); Blood Urea Nitrogen 13 mg/dL (9-16); Calcium 8.6 mg/dL (8.4-10.2); Carbon Dioxide 32 mmol/L (22-29); Chloride 101 mmol/L (96-108); Creatinine Clr Calc Pharmacy 90.4; Estimated Glomerular Filt Rate > 60; Glucose Random 180 mg/dL (60-115); Magnesium 1.8 mg/dL (1.6-2.6); Phosphorus 2.8 mg/dL (2.7-4.5); Potassium 3.3 mmol/L (3.3-5.1); Sodium 138 mmol/L (135-145)
[2021-04-20 07:25] LABS: Glucose, Whole Blood 210 mg/dL (60-115)
[2021-04-20] MEDS: Enoxaparin Sodium 40 MG/0.4 ML SYRINGE SUBCUT (08:09)
[2021-04-20] MEDS: Insulin Lispro 100 UNIT/ML 3 ML VIAL SUBCUT ×3 (08:10→16:19)
[2021-04-20] MEDS: Aspirin 325 MG TABLET PO (08:10)
[2021-04-20] MEDS: Insulin Glargine,Hum.rec.anlog 100 UNIT/ML 10 ML VIAL 10 UNIT SUBCUT (08:10)
[2021-04-20] MEDS: 0.9 % Sodium Chloride Flush 3 ML SYRINGE IVFLUSH ×4 (08:10→20:58)
[2021-04-20] MEDS: predniSONE 20 MG TABLET PO (08:11)
[2021-04-20] MEDS: ARIPiprazole 2 MG TABLET PO (08:11)
[2021-04-20] MEDS: Atorvastatin Calcium 40 MG TABLET PO (08:12)
[2021-04-20] MEDS: Famotidine 20 MG TABLET PO (08:12)
[2021-04-20] MEDS: Cholecalciferol (Vitamin D3) 25 MCG TABLET 50 MCG PO (08:12)
[2021-04-20] MEDS: Thiamine HCL 100 MG TABLET 200 MG PO ×2 (08:12→20:58)
[2021-04-20] MEDS: Doxycycline Hyclate 100 MG in 0.9 % Sodium Chloride 250 ML 166.67 MG IV (08:15)
[2021-04-20] MEDS: carvediloL 12.5 MG TABLET 25 MG PO ×2 (08:15→20:58)
[2021-04-20] MEDS: Acyclovir 5 % Oint 15 GM TUBE TOPICAL ×3 (11:02→21:01)
[2021-04-20] MEDS: hydrOXYzine HCL 50 MG/ML VIAL 25 MG IM ×2 (11:02→16:20)
[2021-04-20 11:23] LABS: Glucose, Whole Blood 249 mg/dL (60-115)
--- NOTE | 2021-04-20 13:18 | P.PNIM_ITS ---
Subjective Subjective Date of Service: 04/20/21 Interval History: Hemodynamically stable overnight yet remains essentially nonverbal; more alert today. TLC/Feeding tube out Review of Systems Nonverbal. Per staff quiet overnight. Denies chest pain shortness of breath nausea vomiting diarrhea Physical Exam Vital Signs: Vital Signs: Last Vital Signs Temp 98.5 F 04/20/21 11:26 Pulse 85 04/20/21 11:26 Resp 20 04/20/21 11:26 BP 144/75 H 04/20/21 11:26 Pulse Ox 93 04/20/21 11:26 Body Mass Index 31.9 Const: Other: Appears comfortable; nonverbal..tearful. HENMT: Other: Membranes moist Neck: Other: Right IJ site clean dry and intact Resp: Other: Clear to auscultation bilaterally no rales rhonchi or wheezes Cardio: Other: No S4; positive S1-S2; no S3 murmurs or gallops GI: Other: Soft nontender nondistended with normoactive bowel sounds. No peritoneal signs Neuro: Other: Awake/alert/non-verbal.Moves all extremities with equal power. Extrem: Other: No edema bilaterally Objective Data Active Medications Acetaminophen (Acetaminophen 325 Mg Tablet) 650 mg PO Q6H PRN PRN Reason: Fever Last Admin: 04/19/21 20:33 Dose: 650 mg Documented by: EMILY Acyclovir (Acyclovir 5 % Oint 15 Gm Tube) 1 gm TOPICAL TID [facility] Last Admin: 04/20/21 11:02 Dose: 1 gm Documented by: ZENON Aripiprazole (Aripiprazole 2 Mg Tablet) 2 mg PO DAILY [facility] Last Admin: 04/20/21 08:11 Dose: 2 mg Documented by: ZENON Aspirin (Aspirin 325 Mg Tablet) 325 mg PO DAILY [facility] Last Admin: 04/20/21 08:10 Dose: 325 mg Documented by: ZENON Atorvastatin Calcium (Atorvastatin Calcium 40 Mg Tablet) 40 mg PO DAILY@0900 [facility] Last Admin: 04/20/21 08:12 Dose: 40 mg Documented by: ZENON Carvedilol (Carvedilol 12.5 Mg Tablet) 25 mg PO BID [facility]; Protocol Last Admin: 04/20/21 08:15 Dose: 25 mg Documented by: ZENON Enoxaparin Sodium (Enoxaparin Sodium 40 Mg/0.4 Ml Syringe) 40 mg SUBCUT DAILY [facility] Last Admin: 04/20/21 08:09 Dose: 40 mg Documented by: ZENON Famotidine (Famotidine 20 Mg Tablet) 20 mg PO DAILY [facility] Last Admin: 04/20/21 08:12 Dose: 20 mg Documented by: ZENON Hydroxyzine HCl (Hydroxyzine Hcl 50 Mg/Ml Vial) 25 mg IM Q4H PRN PRN Reason: anxiety/restlessness Last Admin: 04/20/21 11:02 Dose: 25 mg Documented by: ZENON Doxycycline Hyclate 100 mg/ (Sodium Chloride) 250 mls @ 166.67 mls/hr IV Q12H [facility] Stop: 05/03/21 23:59 Last Infusion: 04/20/21 10:10 Dose: 0 mls/hr Documented by: ZENON Levofloxacin (Levaquin) 750 mg in 150 mls @ 100 mls/hr IV Q24H [facility] Stop: 05/03/21 17:29 Last Infusion: 04/19/21 20:30 Dose: 0 mls/hr Documented by: EMILY Insulin Glargine (Insulin Glargine,Hum.Rec.Anlog 100 Unit/Ml 10 Ml Vial) 10 unit SUBCUT BID [facility] Last Admin: 04/20/21 08:10 Dose: 10 unit Documented by: ZENON Insulin Human Lispro (Insulin Lispro 100 Unit/Ml 3 Ml Vial) 0 unit SUBCUT QIDACHS [facility]; Protocol Last Admin: 04/20/21 11:32 Dose: 4 unit Documented by: ZENON Pharmacy Consult (Consult Rx Perform Med Rec) 1 each MISCELLANE ONCE PRN PRN Reason: Consult order Prednisone (Prednisone 5 Mg Tablet) 15 mg PO DAILY [facility] Stop: 04/22/21 09:01 Prednisone (Prednisone 10 Mg Tablet) 10 mg PO DAILY [facility] Stop: 04/24/21 09:01 Prednisone (Prednisone 5 Mg Tablet) 5 mg PO DAILY [facility] Stop: 04/26/21 09:01 Prednisone (Prednisone 2.5 Mg Tablet) 2.5 mg PO DAILY [facility] Stop: 04/28/21 09:01 Sodium Chloride (0.9 % Sodium Chloride Flush 3 Ml Syringe) 3 ml IVFLUSH QSHIFT [facility] Last Admin: 04/20/21 08:10 Dose: 3 ml Documented by: ZENON Thiamine HCl (Thiamine Hcl 100 Mg Tablet) 200 mg PO BID [facility] Last Admin: 04/20/21 08:12 Dose: 200 mg Documented by: ZENON Vitamin D (Cholecalciferol (Vitamin D3) 25 Mcg Tablet) 50 mcg PO DAILY [facility] Last Admin: 04/20/21 08:12 Dose: 50 mcg Documented by: ZENON Labs CBC & Chem 7: 04/20/21 06:01 04/20/21 06:01 Labs: Laboratory Results - last 24 hr 04/19/21 04/19/21 04/20/21 16:14 20:11 06:01 MCV 82.4 MCH 26.2 L MCHC 31.8 RDW 16.2 H Plt Count 241 MPV 11.0 Immature Gran % (Auto) 1.1 H Neut % (Auto) 77.0 H Lymph % (Auto) 17.4 L Emanuel % (Auto) 2.9 Eos % (Auto) 1.5 Baso % (Auto) 0.1 Lymph # (Auto) 1.7 Emanuel # (Auto) 0.3 Eos # (Auto) 0.1 Baso # (Auto) 0.0 Abs Immat Gran (auto) 0.10 H Absolute Neuts (auto) 7.3 Absolute Nucleated RBC 0.000 Nucleated RBC % (auto) 0.0 VBG pH VBG pCO2 VBG pO2 VBG HCO3 VBG O2 Saturation VBG Base Excess Anion Gap Estim Creat Clear Calc Estimated GFR POC Glucose 227 H 209 H Random Glucose Calcium Phosphorus Magnesium Albumin 04/20/21 04/20/21 04/20/21 06:01 06:07 07:17 MCV MCH MCHC RDW Plt Count MPV Immature Gran % (Auto) Neut % (Auto) Lymph % (Auto) Emanuel % (Auto) Eos % (Auto) Baso % (Auto) Lymph # (Auto) Emanuel # (Auto) Eos # (Auto) Baso # (Auto) Abs Immat Gran (auto) Absolute Neuts (auto) Absolute Nucleated RBC Nucleated RBC % (auto) VBG pH 7.51 H VBG pCO2 43 VBG pO2 67 VBG HCO3 35 H VBG O2 Saturation 94.0 VBG Base Excess 11.1 Anion Gap 8 L Estim Creat Clear Calc 90.4 Estimated GFR > 60 POC Glucose 210 H Random Glucose 180 H Calcium 8.6 Phosphorus 2.8 Magnesium 1.8 Albumin 2.4 L 04/20/21 11:12 MCV MCH MCHC RDW Plt Count MPV Immature Gran % (Auto) Neut % (Auto) Lymph % (Auto) Emanuel % (Auto) Eos % (Auto) Baso % (Auto) Lymph # (Auto) Emanuel # (Auto) Eos # (Auto) Baso # (Auto) Abs Immat Gran (auto) Absolute Neuts (auto) Absolute Nucleated RBC Nucleated RBC % (auto) VBG pH VBG pCO2 VBG pO2 VBG HCO3 VBG O2 Saturation VBG Base Excess Anion Gap Estim Creat Clear Calc Estimated GFR POC Glucose 249 H Random Glucose Calcium Phosphorus Magnesium Albumin Assessment and Plan (1) Major depression: Status: Acute (2) Generalized anxiety disorder: Status: Acute (3) Pneumonia due to Acinetobacter species: Status: Acute Assessment and Plan: 65-year-old moderately obese type 2 diabetic female who was vaccinated but was COVID-19 positive for the pneumonitis/ARDS and acute hypoxemic respiratory failure and encephalopathy as well as acute renal insufficiency.Transferred to floor 04/16/2021; has been hemodynamically stable but essentially nonverbal. T LC/Feeding tube removed. Took spoonfuls of H2o without issue; spit out applesauce/pudding 1.VAP Stable at this time. Will continue IV Levaquin/doxycycline given swallowing status. Will adjust the p.o. when appropriate 2.SUDEEP Return to baseline; will continue IV fluids until taking adequate p.o. Continue to follow labs 3. ?Encephalopathy; appreciate Neuro More alert today. Will book CT to assess frontal lobe issues. Will address GTube in am with daughter. 4.Covid -19 Continue prednisone taper as outlined by Critical Care 5.DMII Insulin as ordered. Adjust as indicated 6.HTN Acceptable control off therapies. Continue follow-up clinically 7. Depression: belive significant part of presentation Continue remeron as ordered Full code DVT prophylaxis; Lovenox Quality Stroke Does the patient have a stroke diagnosis?: No VTE Prior VTE?: No VTE Risk Level:: Medical - moderate - high VTE Device Contraindication: Treatment Not Indicated VTE Drug Contraindication: N/A - Med Ordered
[2021-04-20] MEDS: levoFLOXacin/D5W 750 MG/150 ML PIGGYBACK 100 MG IV (15:42)
[2021-04-20 16:02] LABS: Glucose, Whole Blood 214 mg/dL (60-115)
[2021-04-20] MEDS: Dextrose 5 % and 0.45 % NaCl 1,000 ML 100 ML IVCONT (16:33)
[2021-04-20 20:42] LABS: Glucose, Whole Blood 108 mg/dL (60-115)
[2021-04-21] VITALS (8 sets, daily range): BP systolic 133–156; BP diastolic 65–78; PULSE 84–100; RESP 18–20; TEMP 36.3–37.4; O2SAT 87–94; BMI 30.6
[2021-04-21] MEDS: Dextrose 5 % and 0.45 % NaCl 1,000 ML 100 ML IVCONT ×3 (02:21→22:14)
[2021-04-21 03:41] LABS: Glucose, Whole Blood 115 mg/dL (60-115)
[2021-04-21 06:53] LABS: MANUAL DIFF FLAG NO
[2021-04-21 06:53] LABS: Venous Blood Gas Refer to POC result
[2021-04-21 06:54] LABS: VBG HCO3 34 mmol/L (22-26); VBG pCO2 40 mmHg; VBG pH 7.54 (7.32-7.43); VBG pO2 52 mmHg
[2021-04-21 07:05] LABS: Basophils Percent Auto 0.1 % (0-2); Eosinophils Absolute Auto 0.1 X10*3/uL (0.0-0.4); Eosinophils Percent Auto 1.2 % (0-4); Hematocrit 34.3 % (37-47); Hemoglobin 10.7 g/dl (12.0-16.0); Imm Gran Abs Auto 0.05 X10*3/uL (0.00-0.03); Imm Gran Pct Auto 0.6 % (0.0-0.4); Lymphocytes Absolute Auto 1.6 X10*3/uL (1.2-4.9); Lymphocytes Percent Auto 18.4 % (20-40); Mean Corpuscular HGB Conc 31.2 g/dl (31.0-35.0); Mean Corpuscular Hemoglobin 25.1 pg (27.0-33.0); Mean Corpuscular Volume 80.5 fL (80-98); Mean Platelet Volume 11.8 fL (9.4-12.3); Monocytes Absolute Auto 0.4 X10*3/uL (0.1-1.2); Monocytes Percent Auto 4.4 % (2-11); Neutrophils Absolute Auto 6.7 X10*3/uL (2.0-8.3); Neutrophils Percent Auto 75.3 % (45-73); Platelet Count 264 X10*3/uL (160-400); Red Blood Count 4.26 X10*6/uL (4.20-5.50); Red Cell Distribution Width 16.3 % (11.0-16.0); White Blood Count 8.9 X10*3/uL (4.8-10.8)
[2021-04-21 07:32] LABS: Alanine Aminotransferase 21 U/L (0-31); Albumin Level 2.4 g/dL (3.5-5.0); Alkaline Phosphatase 75 U/L (39-117); Anion Gap 10 (12-20); Aspartate Amino Transferase 31 U/L (5-31); Bilirubin Total 0.4 mg/dL (0.0-1.0); Blood Urea Nitrogen 11 mg/dL (9-16); Calcium 8.3 mg/dL (8.4-10.2); Carbon Dioxide 31 mmol/L (22-29); Chloride 101 mmol/L (96-108); Creatinine Clr Calc Pharmacy 90.1; Estimated Glomerular Filt Rate > 60; Glucose Fasting 142 mg/dL (60-99); Magnesium 1.8 mg/dL (1.6-2.6); Phosphorus 2.7 mg/dL (2.7-4.5); Potassium 3.1 mmol/L (3.3-5.1); Sodium 139 mmol/L (135-145); Total Protein 5.9 g/dL (6.5-8.0)
[2021-04-21 07:56] LABS: Glucose, Whole Blood 149 mg/dL (60-115)
[2021-04-21] MEDS: Insulin Glargine,Hum.rec.anlog 100 UNIT/ML 10 ML VIAL 10 UNIT SUBCUT (08:53)
[2021-04-21] MEDS: predniSONE 5 MG TABLET 15 MG PO (08:54)
[2021-04-21] MEDS: Enoxaparin Sodium 40 MG/0.4 ML SYRINGE SUBCUT (08:54)
[2021-04-21] MEDS: Famotidine 20 MG TABLET PO (08:54)
[2021-04-21] MEDS: carvediloL 12.5 MG TABLET 25 MG PO (08:54)
[2021-04-21] MEDS: ARIPiprazole 2 MG TABLET PO (08:54)
[2021-04-21] MEDS: Aspirin 325 MG TABLET PO (08:54)
[2021-04-21] MEDS: Thiamine HCL 100 MG TABLET 200 MG PO (08:54)
[2021-04-21] MEDS: Cholecalciferol (Vitamin D3) 25 MCG TABLET 50 MCG PO (08:54)
[2021-04-21] MEDS: Atorvastatin Calcium 40 MG TABLET PO (08:54)
[2021-04-21] MEDS: 0.9 % Sodium Chloride Flush 3 ML SYRINGE IVFLUSH ×3 (08:55→20:42)
[2021-04-21] MEDS: Acyclovir 5 % Oint 15 GM TUBE TOPICAL ×3 (08:55→20:41)
--- NOTE | 2021-04-21 10:20 | MHC.SLORD ---
Speech Language Pathology Order Status: HEALTHCARE APPLICATIONS ANALYST following. Patient had chest x-ray on 04/19/21 showing new patchy infiltrate in right upper lobe; left midlung infiltrate is stable. Per Dr. Hernandez, patient took water without issue and spit out applesauce/pudding. RN reports that patient has been refusing, pushing away, and spitting out food. Patient is not appropriate at this time for PO trials per RN. Please contact HEALTHCARE APPLICATIONS ANALYST via [place] if patient is appropriate to be seen later today. Otherwise, plan for dysphagia treatment tomorrow morning.
[2021-04-21 11:44] LABS: Glucose, Whole Blood 258 mg/dL (60-115)
[2021-04-21] MEDS: Insulin Lispro 100 UNIT/ML 3 ML VIAL SUBCUT ×2 (11:57→16:45)
--- NOTE | 2021-04-21 13:09 | P.CDIC_ITS ---
CDI Concurrent Query Documentation Clarification: PHYSICIAN'S DOCUMENTATION REQUEST Date of Query: 04/21/21 1309 Patient Name: Lillie Clemons Admit Date: 03/26/21 Dear Doctor, A review of the medical record indicates additional documentation may be needed. Please review below and update the documentation accordingly. Risk Factors/Clinical Indicators/Treatments Encephalopathy, acute - noted ICU notes. ? encephalopathy, appreciate Neuro input, more alert today, encephalopathy was a persistent issue. Abilify Based on the above, could you clarify in the Progress Notes the appropriate diagnosis, if significant, that supports the above abnormalities and additional evaluation, monitoring, and/or treatment rendered: SPECIFICS: * Encephalopathy, toxic, metabolic etc. * Other (please specify) * Unable to determine Use of terms such as suspected, likely, concern for, or probable (associated with a specific diagnosis that is being evaluated, monitored, or treated as if it exists) are acceptable and can be coded in the inpatient setting, when documented at the time of discharge. Thank you, Jeri Banda [facility], CDIS Extension: [phone] Please use your independent medical judgment in providing your response. THIS QUERY IS PART OF THE PERMANENT MEDICAL RECORD Provider Response: Other Other Diagnosis: Unable to determine
--- NOTE | 2021-04-21 13:52 | MHC.SLORD ---
Speech Language Pathology Order Status: COMPLAINT INVESTIGATIONS OFFICER checked in with Dr. Hernandez. COMPLAINT INVESTIGATIONS OFFICER recommended NPO status last week 04/17, 04/18. COMPLAINT INVESTIGATIONS OFFICER updated MD on observations made last week- extremely weak cough, delayed/effortful dry swallow, anterior loss of water, refusal to participate in dysphagia treatment. Per MD, patient was placed on ground/mechanically altered diet in hopes patient would do better without NGT. Per RN, patient has been refusing PO. Plan to re-evaluate tomorrow morning.
--- NOTE | 2021-04-21 15:29 | MHC.CM.PN ---
Female 65 DX Covid+ No discharge today per MD rounds. She is not eating. Patient may require a G-tube for meds and nutrition. DP STR via BLS. CM will follow.
--- NOTE | 2021-04-21 16:22 | HO.PM.IMPN ---
Subjective Subjective Date of Service: 04/21/21 Interval History: Remains hemodynamically stable. Refusing all orals. Review of Systems Nonverbal. Per staff quiet overnight. Denies chest pain shortness of breath nausea vomiting diarrhea Physical Exam Vital Signs: Vital Signs: Last Vital Signs Temp 99.3 F 04/21/21 15:55 Pulse 100 04/21/21 15:55 Resp 18 04/21/21 15:55 BP 138/73 04/21/21 15:55 Pulse Ox 90 L 04/21/21 15:55 Body Mass Index 30.6 Const: Other: Appears comfortable; nonverbal..tearful. HENMT: Other: Membranes moist Neck: Other: Right IJ site clean dry and intact Resp: Other: Clear to auscultation bilaterally no rales rhonchi or wheezes Cardio: Other: No S4; positive S1-S2; no S3 murmurs or gallops GI: Other: Soft nontender nondistended with normoactive bowel sounds. No peritoneal signs Neuro: Other: Awake/alert/non-verbal.Moves all extremities with equal power. Extrem: Other: No edema bilaterally Objective Data Active Medications Acetaminophen (Acetaminophen 325 Mg Tablet) 650 mg PO Q6H PRN PRN Reason: Fever Last Admin: 04/19/21 20:33 Dose: 650 mg Documented by: EMILY Acyclovir (Acyclovir 5 % Oint 15 Gm Tube) 1 gm TOPICAL TID [facility] Last Admin: 04/21/21 08:55 Dose: 1 gm Documented by: JOAO Aripiprazole (Aripiprazole 2 Mg Tablet) 2 mg PO DAILY [facility] Last Admin: 04/21/21 08:54 Dose: 2 mg Documented by: JOAO Aspirin (Aspirin 325 Mg Tablet) 325 mg PO DAILY [facility] Last Admin: 04/21/21 08:54 Dose: 325 mg Documented by: JOAO Atorvastatin Calcium (Atorvastatin Calcium 40 Mg Tablet) 40 mg PO DAILY@0900 [facility] Last Admin: 04/21/21 08:54 Dose: 40 mg Documented by: JOAO Carvedilol (Carvedilol 12.5 Mg Tablet) 25 mg PO BID [facility]; Protocol Last Admin: 04/21/21 08:54 Dose: 25 mg Documented by: JOAO Enoxaparin Sodium (Enoxaparin Sodium 40 Mg/0.4 Ml Syringe) 40 mg SUBCUT DAILY [facility] Last Admin: 04/21/21 08:54 Dose: 40 mg Documented by: JOAO Famotidine (Famotidine 20 Mg Tablet) 20 mg PO DAILY [facility] Last Admin: 04/21/21 08:54 Dose: 20 mg Documented by: JOAO Hydroxyzine HCl (Hydroxyzine Hcl 50 Mg/Ml Vial) 25 mg IM Q4H PRN PRN Reason: anxiety/restlessness Last Admin: 04/20/21 16:20 Dose: 25 mg Documented by: ZENON Levofloxacin (Levaquin) 750 mg in 150 mls @ 100 mls/hr IV Q24H [facility] Stop: 05/03/21 17:29 Last Infusion: 04/20/21 17:50 Dose: 0 mls/hr Documented by: ZENON Dextrose/Sodium Chloride (D51/2ns) 1,000 mls @ 100 mls/hr IVCONT .Q10H [facility] Last Admin: 04/21/21 11:57 Dose: 100 mls/hr Documented by: JOAO Insulin Glargine (Insulin Glargine,Hum.Rec.Anlog 100 Unit/Ml 10 Ml Vial) 10 unit SUBCUT BID [facility] Last Admin: 04/21/21 08:53 Dose: 10 unit Documented by: JOAO Insulin Human Lispro (Insulin Lispro 100 Unit/Ml 3 Ml Vial) 0 unit SUBCUT QIDACHS [facility]; Protocol Last Admin: 04/21/21 11:57 Dose: 6 unit Documented by: JOAO Pharmacy Consult (Consult Rx Perform Med Rec) 1 each MISCELLANE ONCE PRN PRN Reason: Consult order Prednisone (Prednisone 5 Mg Tablet) 15 mg PO DAILY [facility] Stop: 04/22/21 09:01 Last Admin: 04/21/21 08:54 Dose: 15 mg Documented by: JOAO Prednisone (Prednisone 10 Mg Tablet) 10 mg PO DAILY [facility] Stop: 04/24/21 09:01 Prednisone (Prednisone 5 Mg Tablet) 5 mg PO DAILY [facility] Stop: 04/26/21 09:01 Prednisone (Prednisone 2.5 Mg Tablet) 2.5 mg PO DAILY [facility] Stop: 04/28/21 09:01 Sodium Chloride (0.9 % Sodium Chloride Flush 3 Ml Syringe) 3 ml IVFLUSH QSLAFT [facility] Last Admin: 04/21/21 08:55 Dose: 3 ml Documented by: JOAO Sodium Chloride (0.9 % Sodium Chloride Flush 3 Ml Syringe) 3 ml IVFLUSH QSLAFT [facility] Last Admin: 04/21/21 08:55 Dose: Not Given Documented by: JOAO Non-Admin Reason: Duplicate Order Thiamine HCl (Thiamine Hcl 100 Mg Tablet) 200 mg PO BID [facility] Last Admin: 04/21/21 08:54 Dose: 200 mg Documented by: JOAO Vitamin D (Cholecalciferol (Vitamin D3) 25 Mcg Tablet) 50 mcg PO DAILY [facility] Last Admin: 04/21/21 08:54 Dose: 50 mcg Documented by: JOAO Labs CBC & Chem 7: 04/21/21 06:43 04/21/21 06:43 Labs: Laboratory Results - last 24 hr 04/20/21 04/21/21 04/21/21 20:39 03:36 06:43 MCV Cancelled MCH Cancelled MCHC Cancelled RDW Cancelled Plt Count Cancelled MPV Cancelled Immature Gran % (Auto) Cancelled Neut % (Auto) Cancelled Lymph % (Auto) Cancelled [place] % (Auto) Cancelled Eos % (Auto) Cancelled Baso % (Auto) Cancelled Lymph # (Auto) Cancelled [place] # (Auto) Cancelled Eos # (Auto) Cancelled Baso # (Auto) Cancelled Abs Immat Gran (auto) Cancelled Absolute Neuts (auto) Cancelled Absolute Nucleated RBC Cancelled Nucleated RBC % (auto) Cancelled VBG pH VBG pCO2 VBG pO2 VBG HCO3 VBG O2 Saturation VBG Base Excess Anion Gap Estim Creat Clear Calc Estimated GFR POC Glucose 108 115 Random Glucose Fasting Glucose Calcium Phosphorus Magnesium Total Bilirubin AST ALT Alkaline Phosphatase Total Protein Albumin 04/21/21 04/21/21 04/21/21 06:43 06:43 06:43 MCV 80.5 MCH 25.1 L MCHC 31.2 RDW 16.3 H Plt Count 264 MPV 11.8 Immature Gran % (Auto) 0.6 H Neut % (Auto) 75.3 H Lymph % (Auto) 18.4 L [place] % (Auto) 4.4 Eos % (Auto) 1.2 Baso % (Auto) 0.1 Lymph # (Auto) 1.6 [place] # (Auto) 0.4 Eos # (Auto) 0.1 Baso # (Auto) 0.0 Abs Immat Gran (auto) 0.05 H Absolute Neuts (auto) 6.7 Absolute Nucleated RBC 0.000 Nucleated RBC % (auto) 0.0 VBG pH VBG pCO2 VBG pO2 VBG HCO3 VBG O2 Saturation VBG Base Excess Anion Gap 10 L Cancelled Estim Creat Clear Calc 90.1 Cancelled Estimated GFR > 60 Cancelled POC Glucose Random Glucose Cancelled Fasting Glucose 142 H Calcium 8.3 L Cancelled Phosphorus 2.7 Cancelled Magnesium 1.8 Cancelled Total Bilirubin 0.4 AST 31 ALT 21 Alkaline Phosphatase 75 D Total Protein 5.9 L Albumin 2.4 L 04/21/21 04/21/21 04/21/21 06:48 07:46 11:30 MCV MCH MCHC RDW Plt Count MPV Immature Gran % (Auto) Neut % (Auto) Lymph % (Auto) [place] % (Auto) Eos % (Auto) Baso % (Auto) Lymph # (Auto) [place] # (Auto) Eos # (Auto) Baso # (Auto) Abs Immat Gran (auto) Absolute Neuts (auto) Absolute Nucleated RBC Nucleated RBC % (auto) VBG pH 7.54 H VBG pCO2 40 VBG pO2 52 VBG HCO3 34 H VBG O2 Saturation 85.0 VBG Base Excess 11.0 Anion Gap Estim Creat Clear Calc Estimated GFR POC Glucose 149 H 258 H Random Glucose Fasting Glucose Calcium Phosphorus Magnesium Total Bilirubin AST ALT Alkaline Phosphatase Total Protein Albumin Assessment and Plan (1) Generalized anxiety disorder: Status: Acute (2) Major depression: Status: Acute (3) Pneumonia due to COVID-19 virus: Status: Acute Assessment and Plan: 65-year-old moderately obese type 2 diabetic female who was vaccinated but was COVID-19 positive for the pneumonitis/ARDS and acute hypoxemic respiratory failure and encephalopathy as well as acute renal insufficiency.Transferred to floor 04/16/2021; has been hemodynamically stable but essentially nonverbal. TLC/Feeding tube removed. Took spoonfuls of H2o without issue; now refusing all p.o. intake 1.VAP Stable at this time. Will continue IV Levaquin 2.SUDEEP Return to baseline; will continue IV fluids until taking adequate p.o. Continue to follow labs 3. ?Encephalopathy; appreciate Neuro More alert today. Will book CT to assess frontal lobe issues. If refuses speech in a.m. , discussed with daughter and asked GI to place G-tube 4.Covid -19 Continue prednisone taper as outlined by Critical Care 5.DMII Insulin as ordered. Adjust as indicated 6.HTN Acceptable control off therapies. Continue follow-up clinically 7. Depression: belive significant part of presentation Continue remeron as ordered Full code DVT prophylaxis; Lovenox Quality Stroke Does the patient have a stroke diagnosis?: No VTE Prior VTE?: No VTE Risk Level:: Medical - moderate - high VTE Device Contraindication: Treatment Not Indicated VTE Drug Contraindication: N/A - Med Ordered
[2021-04-21 16:33] LABS: Glucose, Whole Blood 171 mg/dL (60-115)
[2021-04-21] MEDS: levoFLOXacin/D5W 750 MG/150 ML PIGGYBACK 100 MG IV (16:45)
[2021-04-21 20:20] LABS: Glucose, Whole Blood 142 mg/dL (60-115)
[2021-04-22] VITALS (7 sets, daily range): BP systolic 140–173; BP diastolic 66–82; PULSE 89–103; RESP 18; TEMP 36.6–37.6; O2SAT 92–95; BMI 30.7
[2021-04-22 06:27] LABS: MANUAL DIFF FLAG NO
[2021-04-22 06:53] LABS: Basophils Percent Auto 0.1 % (0-2); Eosinophils Absolute Auto 0.1 X10*3/uL (0.0-0.4); Eosinophils Percent Auto 0.5 % (0-4); Hematocrit 34.6 % (37-47); Hemoglobin 10.7 g/dl (12.0-16.0); Imm Gran Abs Auto 0.06 X10*3/uL (0.00-0.03); Imm Gran Pct Auto 0.5 % (0.0-0.4); Lymphocytes Absolute Auto 1.3 X10*3/uL (1.2-4.9); Lymphocytes Percent Auto 10.8 % (20-40); Mean Corpuscular HGB Conc 30.9 g/dl (31.0-35.0); Mean Corpuscular Hemoglobin 25.2 pg (27.0-33.0); Mean Corpuscular Volume 81.4 fL (80-98); Mean Platelet Volume 10.8 fL (9.4-12.3); Monocytes Absolute Auto 0.6 X10*3/uL (0.1-1.2); Monocytes Percent Auto 4.9 % (2-11); Neutrophils Absolute Auto 10.3 X10*3/uL (2.0-8.3); Neutrophils Percent Auto 83.2 % (45-73); Platelet Count 261 X10*3/uL (160-400); Red Blood Count 4.25 X10*6/uL (4.20-5.50); Red Cell Distribution Width 15.9 % (11.0-16.0); White Blood Count 12.4 X10*3/uL (4.8-10.8)
[2021-04-22 07:23] LABS: Alanine Aminotransferase 22 U/L (0-31); Albumin Level 2.5 g/dL (3.5-5.0); Alkaline Phosphatase 78 U/L (39-117); Anion Gap 11 (12-20); Aspartate Amino Transferase 31 U/L (5-31); Bilirubin Total 0.6 mg/dL (0.0-1.0); Blood Urea Nitrogen 8 mg/dL (9-16); Calcium 8.4 mg/dL (8.4-10.2); Carbon Dioxide 29 mmol/L (22-29); Chloride 99 mmol/L (96-108); Creatinine Clr Calc Pharmacy 90.4; Estimated Glomerular Filt Rate > 60; Glucose Fasting 170 mg/dL (60-99); Magnesium 1.8 mg/dL (1.6-2.6); Sodium 136 mmol/L (135-145); Total Protein 6.2 g/dL (6.5-8.0)
[2021-04-22 07:36] LABS: Phosphorus 2.2 mg/dL (2.7-4.5)
[2021-04-22 07:36] LABS: Glucose, Whole Blood 198 mg/dL (60-115)
[2021-04-22] MEDS: Enoxaparin Sodium 40 MG/0.4 ML SYRINGE SUBCUT (08:03)
[2021-04-22] MEDS: Insulin Lispro 100 UNIT/ML 3 ML VIAL SUBCUT ×4 (08:03→20:40)
[2021-04-22] MEDS: Dextrose 5 % and 0.45 % NaCl 1,000 ML 100 ML IVCONT ×2 (08:03→16:30)
[2021-04-22] MEDS: Insulin Glargine,Hum.rec.anlog 100 UNIT/ML 10 ML VIAL 10 UNIT SUBCUT ×2 (08:03→20:40)
[2021-04-22] MEDS: 0.9 % Sodium Chloride Flush 3 ML SYRINGE IVFLUSH ×4 (08:04→21:07)
[2021-04-22] MEDS: Acyclovir 5 % Oint 15 GM TUBE TOPICAL ×3 (08:04→21:13)
--- NOTE | 2021-04-22 10:21 | MHC.CLN ---
F/U NGT D/C 04/21 DAY 2 WITH POOR PO REFUSING ALL PO PER MD PT RECEIVING IV FLUIDS UNTIL INTAKE IMPROVES TEXTILE COATING MACHINE OPERATOR FOLLOWING FOR APPROPRIATE DIET CONSISTENCY POSSIBLE PEG PER GI IF PO INTAKE INSIGNIFICANT MONITOR PO INTAKE CLOSELY FOLLOWING WITH TEAM
--- NOTE | 2021-04-22 11:13 | MHC.SL.SWA ---
Speech Pathologist Impression: Risk of Aspiration Oralpharyngeal Dysphagia Risk of Aspiration Due to: Lethargy Medically Fragile History of Pneumonia Hx of Recent Extubation Weak Cough Weak Voice Dysphasia Diet Status: No Change Liquid Consistency and Strategies for Safe Swallow: Liquid Intake Recommendation: NPO Solid Food Consistency: Dietary Recommendations: NPO Oral Medication Intake: NPO Supervision While Eating and Drinking for Safe Swallow: PO with PANEL INSTRUMENT REPAIRER Swallowing Recommended Treatments: Compens. Strategy Educat. Recommendation for Speech: Patient was seen for bedside dysphagia evaluation on 04/15/21. Patient was intubated 03/29/21 - 04/11/21. Patient was extubated to high flow nasal cannula successfully. Patient failed nursing swallow screenings on 04/11 and 04/12. Per RN report, patient requires suctioning and has weak cough. Patient presented with dried secretions on lips and tongue. Patient was provided with oral care with mouthwash and swab. No swallow with mouthwash, but noted gurgly throat sound. Patient was asked to initiate volitional swallow. Patient attempted swallow and this appeared effortful. However, upon palpation, no laryngeal elevation. Patient was asked to produce cough. Patient has extremely weak cough. Patient would not be able to protect airway. No PO trials administered due to patient's need for suctioning, absent swallow trigger, and extremely weak cough. 04/16/21- Patient declined PO trials. Patient as unable/unwilling to elicit volitional dry swallow at that time. RN yesterday reported severe motor weakness and liquid spilled from oral cavity when screening was attempted. Patient continues to receive KO feeds via right nare. Her chest x-ray on 04/16 showed, unchanged multifocal airspace disease the lungs compared with 04/12/21. 04/17/21- Patient was seen by Czech-speaking PANEL INSTRUMENT REPAIRER. Patient followed command for volitional dry swallow. Dry swallow was delayed and appeared effortful. Note significantly reduced laryngeal elevation. When given trace water, note complete anterior spillage. Patient then refused, becoming tearful. 04/21/21- RN reports patient continues to refuse PO. Per RN, patient was not appropriate for PO trials this date. PANEL INSTRUMENT REPAIRER checked in with Dr. Hernandez. PANEL INSTRUMENT REPAIRER recommended NPO status last week 04/15, 04/17, 04/18. PANEL INSTRUMENT REPAIRER updated MD on observations made last week- extremely weak cough, delayed/effortful dry swallow, anterior loss of water, refusal to participate in dysphagia treatment. Per MD, diet order was changed to ground/mechanically altered diet in hopes patient would do better without NGT. 04/22/21-RN reports that patient continues to refuse PO and spits out her medications. PANEL INSTRUMENT REPAIRER. Patient was able to swallow on command x2 times. Dry swallow was significantly delayed and laryngeal elevation incomplete. Patient accepted trace amount of water. Note delayed swallow and no overt s/s of aspiration on trace amount water. Patient was offered different food and drink items, but refused all PO. Patient turned her face away, refused to open her mouth, and became tearful. PANEL INSTRUMENT REPAIRER was unable to complete bedside eval due to patient's refusal. Kst Operator Clinican/Clinical Fellow: No Supervisory Statement: I have reviewed and agree with the student/clinical fellow's documentation: N/A Speech Language Pathologist: Kenya Quiroz M.A., [facility]PANEL INSTRUMENT REPAIRER
[2021-04-22 11:16] LABS: Glucose, Whole Blood 218 mg/dL (60-115)
--- NOTE | 2021-04-22 15:13 | HO.PM.IMPN ---
Subjective Subjective Date of Service: 04/22/21 Interval History: Per staff, did take some meds with pudding yesterday this morning refusing meds get. PT attempted to work with patient however promptly desaturated to the 70s Review of Systems Per staff Denies chest pain Admit shortness of breath Denies nausea vomiting Physical Exam Vital Signs: Vital Signs: Last Vital Signs Temp 98.8 F 04/22/21 11:22 Pulse 103 H 04/22/21 11:22 Resp 18 04/22/21 11:22 BP 173/68 H 04/22/21 11:22 Pulse Ox 92 04/22/21 11:22 Body Mass Index 30.7 Const: Other: Weepy; intermittently compliant with POs; took some meds with pudding. Taking tsp water no swallowing issues noted Resp: Other: Diminished at bases with scant crackles at bases. Scant expiratory wheezes throughout Cardio: Other: No S4; positive S1-S2; no S3 murmurs or gallops GI: Other: Soft nontender nondistended with normoactive bowel sounds. Neuro: Other: Questionable right-sided facial droop this a.m. along with right-sided weakness Extrem: Other: No edema bilaterally Objective Data Active Medications Acetaminophen (Acetaminophen 325 Mg Tablet) 650 mg PO Q6H PRN PRN Reason: Fever Last Admin: 04/19/21 20:33 Dose: 650 mg Documented by: EMILY Acyclovir (Acyclovir 5 % Oint 15 Gm Tube) 1 gm TOPICAL TID [facility] Last Admin: 04/22/21 08:04 Dose: 1 gm Documented by: JOAO Aripiprazole (Aripiprazole 2 Mg Tablet) 2 mg PO DAILY [facility] Last Admin: 04/22/21 09:49 Dose: Not Given Documented by: JOAO Non-Admin Reason: Patient Refused Aspirin (Aspirin 325 Mg Tablet) 325 mg PO DAILY [facility] Last Admin: 04/22/21 09:49 Dose: Not Given Documented by: JOAO Non-Admin Reason: Patient Refused Atorvastatin Calcium (Atorvastatin Calcium 40 Mg Tablet) 40 mg PO DAILY@0900 [facility] Last Admin: 04/22/21 09:49 Dose: Not Given Documented by: JOAO Non-Admin Reason: Patient Refused Carvedilol (Carvedilol 12.5 Mg Tablet) 25 mg PO BID [facility]; Protocol Last Admin: 04/22/21 09:49 Dose: Not Given Documented by: JOAO Non-Admin Reason: Patient Refused Enoxaparin Sodium (Enoxaparin Sodium 40 Mg/0.4 Ml Syringe) 40 mg SUBCUT DAILY [facility] Last Admin: 04/22/21 08:03 Dose: 40 mg Documented by: JOAO Famotidine (Famotidine 20 Mg Tablet) 20 mg PO DAILY [facility] Last Admin: 04/22/21 09:49 Dose: Not Given Documented by: JOAO Non-Admin Reason: Patient Refused Hydroxyzine HCl (Hydroxyzine Hcl 50 Mg/Ml Vial) 25 mg IM Q4H PRN PRN Reason: anxiety/restlessness Last Admin: 04/20/21 16:20 Dose: 25 mg Documented by: ZENON Levofloxacin (Levaquin) 750 mg in 150 mls @ 100 mls/hr IV Q24H [facility] Stop: 05/03/21 17:29 Last Infusion: 04/21/21 19:07 Dose: 0 mls/hr Documented by: JOAO Dextrose/Sodium Chloride (D51/2ns) 1,000 mls @ 100 mls/hr IVCONT .Q10H [facility] Last Admin: 04/22/21 08:03 Dose: 100 mls/hr Documented by: JOAO Insulin Glargine (Insulin Glargine,Hum.Rec.Anlog 100 Unit/Ml 10 Ml Vial) 10 unit SUBCUT BID [facility] Last Admin: 04/22/21 08:03 Dose: 10 unit Documented by: JOAO Insulin Human Lispro (Insulin Lispro 100 Unit/Ml 3 Ml Vial) 0 unit SUBCUT QIDACHS [facility]; Protocol Last Admin: 04/22/21 11:57 Dose: 4 unit Documented by: JOAO Pharmacy Consult (Consult Rx Perform Med Rec) 1 each MISCELLANE ONCE PRN PRN Reason: Consult order Prednisone (Prednisone 10 Mg Tablet) 10 mg PO DAILY [facility] Stop: 04/24/21 09:01 Prednisone (Prednisone 5 Mg Tablet) 5 mg PO DAILY [facility] Stop: 04/26/21 09:01 Prednisone (Prednisone 2.5 Mg Tablet) 2.5 mg PO DAILY [facility] Stop: 04/28/21 09:01 Sodium Chloride (0.9 % Sodium Chloride Flush 3 Ml Syringe) 3 ml IVFLUSH QSHIFT [facility] Last Admin: 04/22/21 08:04 Dose: 3 ml Documented by: JOAO Sodium Chloride (0.9 % Sodium Chloride Flush 3 Ml Syringe) 3 ml IVFLUSH QSHIFT [facility] Last Admin: 04/22/21 08:03 Dose: Not Given Documented by: JOAO Non-Admin Reason: Duplicate Order Thiamine HCl (Thiamine Hcl 100 Mg Tablet) 200 mg PO BID [facility] Last Admin: 04/22/21 09:49 Dose: Not Given Documented by: JOAO Non-Admin Reason: Patient Refused Vitamin D (Cholecalciferol (Vitamin D3) 25 Mcg Tablet) 50 mcg PO DAILY [facility] Last Admin: 04/22/21 09:49 Dose: Not Given Documented by: JOAO Non-Admin Reason: Patient Refused Labs CBC & Chem 7: 04/22/21 06:08 04/22/21 06:08 Labs: Laboratory Results - last 24 hr 04/21/21 04/21/21 04/22/21 16:28 20:12 06:08 MCV 81.4 MCH 25.2 L MCHC 30.9 L RDW 15.9 Plt Count 261 MPV 10.8 Immature Gran % (Auto) 0.5 H Neut % (Auto) 83.2 H Lymph % (Auto) 10.8 L [place] % (Auto) 4.9 Eos % (Auto) 0.5 Baso % (Auto) 0.1 Lymph # (Auto) 1.3 [place] # (Auto) 0.6 Eos # (Auto) 0.1 Baso # (Auto) 0.0 Abs Immat Gran (auto) 0.06 H Absolute Neuts (auto) 10.3 H Absolute Nucleated RBC 0.000 Nucleated RBC % (auto) 0.0 Anion Gap Estim Creat Clear Calc Estimated GFR POC Glucose 171 H 142 H Fasting Glucose Calcium Phosphorus Magnesium Total Bilirubin AST ALT Alkaline Phosphatase Total Protein Albumin 04/22/21 04/22/21 04/22/21 06:08 07:28 11:08 MCV MCH MCHC RDW Plt Count MPV Immature Gran % (Auto) Neut % (Auto) Lymph % (Auto) [place] % (Auto) Eos % (Auto) Baso % (Auto) Lymph # (Auto) [place] # (Auto) Eos # (Auto) Baso # (Auto) Abs Immat Gran (auto) Absolute Neuts (auto) Absolute Nucleated RBC Nucleated RBC % (auto) Anion Gap 11 L Estim Creat Clear Calc 90.4 Estimated GFR > 60 POC Glucose 198 H 218 H Fasting Glucose 170 H Calcium 8.4 Phosphorus 2.2 L Magnesium 1.8 Total Bilirubin 0.6 AST 31 ALT 22 Alkaline Phosphatase 78 Total Protein 6.2 L Albumin 2.5 L Assessment and Plan (1) Generalized anxiety disorder: Status: Acute (2) Acute respiratory distress syndrome (ARDS) due to COVID-19 virus: Status: Acute Assessment and Plan: 65-year-old moderately obese type 2 diabetic female who was vaccinated but was COVID-19 positive for the pneumonitis/ARDS and acute hypoxemic respiratory failure and encephalopathy as well as acute renal insufficiency.Transferred to floor 04/16/2021; has been hemodynamically stable but essentially nonverbal. TLC/Feeding tube removed. Took spoonfuls of H2o without issue; intermittently taking pills in pudding 1.VAP Significant desaturation with physical therapy today will titrate O2 to ask pulmonary support 2.SUDEEP Return to baseline; will continue IV fluids until taking adequate p.o. Continue to follow labs 3. ?Encephalopathy; CT negative now with mild right-sided weakness question CVA Will book MRI 4.Covid -19 Continue prednisone taper as outlined by Critical Care 5.DMII Insulin as ordered. Adjust as indicated 6.HTN Acceptable control off therapies. Continue follow-up clinically 7. Depression: Family states this is patient presentation at home he eats very little intermittently. Await MRI input Full code DVT prophylaxis; inEarth Quality Stroke Does the patient have a stroke diagnosis?: No VTE Prior VTE?: No VTE Risk Level:: Medical - moderate - high VTE Device Contraindication: Treatment Not Indicated VTE Drug Contraindication: N/A - Med Ordered
[2021-04-22 16:05] LABS: Glucose, Whole Blood 161 mg/dL (60-115)
[2021-04-22] MEDS: levoFLOXacin/D5W 750 MG/150 ML PIGGYBACK 100 MG IV (16:29)
[2021-04-22 20:13] LABS: Glucose, Whole Blood 180 mg/dL (60-115)
[2021-04-22] MEDS: Thiamine HCL 100 MG TABLET 200 MG PO (21:07)
[2021-04-22] MEDS: carvediloL 12.5 MG TABLET 25 MG PO (21:07)
[2021-04-23] VITALS (11 sets, daily range): BP systolic 107–160; BP diastolic 61–84; PULSE 86–105; RESP 18–21; TEMP 36.1–37.1; O2SAT 86–95; BMI 29.9
[2021-04-23] MEDS: Dextrose 5 % and 0.45 % NaCl 1,000 ML 100 ML IVCONT (04:01)
[2021-04-23 06:36] LABS: MANUAL DIFF FLAG NO
[2021-04-23 06:41] LABS: Basophils Percent Auto 0.1 % (0-2); Eosinophils Percent Auto 0.4 % (0-4); Hematocrit 30.7 % (37-47); Hemoglobin 9.7 g/dl (12.0-16.0); Imm Gran Abs Auto 0.05 X10*3/uL (0.00-0.03); Imm Gran Pct Auto 0.5 % (0.0-0.4); Lymphocytes Absolute Auto 1.7 X10*3/uL (1.2-4.9); Lymphocytes Percent Auto 17.7 % (20-40); Mean Corpuscular HGB Conc 31.6 g/dl (31.0-35.0); Mean Corpuscular Hemoglobin 25.5 pg (27.0-33.0); Mean Corpuscular Volume 80.8 fL (80-98); Mean Platelet Volume 10.8 fL (9.4-12.3); Monocytes Absolute Auto 0.5 X10*3/uL (0.1-1.2); Monocytes Percent Auto 5.1 % (2-11); Neutrophils Absolute Auto 7.4 X10*3/uL (2.0-8.3); Neutrophils Percent Auto 76.2 % (45-73); Platelet Count 226 X10*3/uL (160-400); Red Cell Distribution Width 15.9 % (11.0-16.0); White Blood Count 9.7 X10*3/uL (4.8-10.8)
[2021-04-23 07:04] LABS: Alanine Aminotransferase 17 U/L (0-31); Albumin Level 2.2 g/dL (3.5-5.0); Alkaline Phosphatase 78 U/L (39-117); Aspartate Amino Transferase 25 U/L (5-31); Bilirubin Total 0.6 mg/dL (0.0-1.0); Blood Urea Nitrogen 6 mg/dL (9-16); Creatinine Clr Calc Pharmacy 92.6; Estimated Glomerular Filt Rate > 60; Glucose Fasting 213 mg/dL (60-99); Magnesium 1.7 mg/dL (1.6-2.6); Phosphorus 2.5 mg/dL (2.7-4.5); Total Protein 5.5 g/dL (6.5-8.0)
[2021-04-23 07:12] LABS: Glucose, Whole Blood 206 mg/dL (60-115)
[2021-04-23 07:17] LABS: Anion Gap 9 (12-20); Calcium 7.8 mg/dL (8.4-10.2); Carbon Dioxide 30 mmol/L (22-29); Chloride 98 mmol/L (96-108); Potassium 2.6 mmol/L (3.3-5.1); Sodium 134 mmol/L (135-145)
[2021-04-23] MEDS: Thiamine HCL 100 MG TABLET 200 MG PO ×2 (10:01→21:21)
[2021-04-23] MEDS: ARIPiprazole 2 MG TABLET PO (10:01)
[2021-04-23] MEDS: Aspirin 325 MG TABLET PO (10:02)
[2021-04-23] MEDS: predniSONE 10 MG TABLET PO (10:02)
[2021-04-23] MEDS: carvediloL 12.5 MG TABLET 25 MG PO ×2 (10:03→21:21)
[2021-04-23] MEDS: Famotidine 20 MG TABLET PO (10:03)
[2021-04-23] MEDS: Cholecalciferol (Vitamin D3) 25 MCG TABLET 50 MCG PO (10:04)
[2021-04-23] MEDS: Atorvastatin Calcium 40 MG TABLET PO (10:06)
[2021-04-23] MEDS: Insulin Glargine,Hum.rec.anlog 100 UNIT/ML 10 ML VIAL 10 UNIT SUBCUT (10:08)
[2021-04-23] MEDS: Insulin Lispro 100 UNIT/ML 3 ML VIAL SUBCUT ×2 (10:09→12:27)
--- NOTE | 2021-04-23 10:15 | MHC.SL.DTX ---
Changes made to current diet?: Yes: Recommend NDD2 ground solids as ordered by MD with thin liquids via small, staff controlled cup sips; NO STRAWS. Pt requires strict aspiration precautions and 1:1 assist with all PO intake. Hold PO if pt becomes lethargic or demonstrates overt s/s aspiration during/after PO intake. Dysphasia Diet Status: No Change Liquid Consistency and Strategies: Liquid Intake Recommendation: Thin Compensatory Strategies for Safe Swallow: Small Sips No Straws Compensatory Strategies for Safe Swallow(b): Sitting Upright (90 deg) No Straw Small Bites and Sips Alternate Liquids/Solids Oral Check Solid Food Consistency: Dietary Recommendations: Grnd/Mech Altered (NDD2) Additional Modifications to Solids: extra sauce/gravy Oral Medication Intake: Crushed with Puree Strategies and Precautions to be Taken for Safe Swallow: Compensatory Swallowing Status: Sitting Upright (90 deg) No Straw Small Bites and Sips Alternate Liquids/Solids Oral Check Supervision While Eating and/Drinking: PO with UNIX ADMINISTRATOR Foods to Avoid: dry, crunchy, sticky solids Swallowing Recommended Treatments: Compens. Strategy Educat. Level of Impact on: Daily activities: Moderate Interpersonal interactions: Moderate Community: Moderate Prognosis for Improvement: Fair Recommendation for Speech: Comment: Patient was seen for bedside dysphagia evaluation on 04/15/21. Patient was intubated 03/29/21 - 04/11/21. Patient was extubated to high flow nasal cannula successfully. Patient failed nursing swallow screenings on 04/11 and 04/12. Per RN report, patient requires suctioning and has weak cough. Patient presented with dried secretions on lips and tongue. Patient was provided with oral care with mouthwash and swab. No swallow with mouthwash, but noted gurgly throat sound. Patient was asked to initiate volitional swallow. Patient attempted swallow and this appeared effortful. However, upon palpation, no laryngeal elevation. Patient was asked to produce cough. Patient has extremely weak cough. Patient would not be able to protect airway. No PO trials administered due to patient's need for suctioning, absent swallow trigger, and extremely weak cough. 04/16/21- Patient declined PO trials. Patient as unable/unwilling to elicit volitional dry swallow at that time. RN yesterday reported severe motor weakness and liquid spilled from oral cavity when screening was attempted. Patient continues to receive KO feeds via right nare. Her chest x-ray on 04/16 showed, unchanged multifocal airspace disease the lungs compared with 04/12/21. 04/17/21- Patient was seen by Vietnamese-speaking UNIX ADMINISTRATOR. Patient followed command for volitional dry swallow. Dry swallow was delayed and appeared effortful. Note significantly reduced laryngeal elevation. When given trace water, note complete anterior spillage. Patient then refused, becoming tearful. 04/21/21- RN reports patient continues to refuse PO. Per RN, patient was not appropriate for PO trials this date. UNIX ADMINISTRATOR checked in with Dr. Hernandez. UNIX ADMINISTRATOR recommended NPO status last week 04/15, 04/17, 04/18. UNIX ADMINISTRATOR updated MD on observations made last week- extremely weak cough, delayed/effortful dry swallow, anterior loss of water, refusal to participate in dysphagia treatment. Per MD, diet order was changed to ground/mechanically altered diet in hopes patient would do better without NGT. 04/22/21-RN reports that patient continues to refuse PO and spits out her medications. UNIX ADMINISTRATOR. Patient was able to swallow on command x2 times. Dry swallow was significantly delayed and laryngeal elevation incomplete. Patient accepted trace amount of water. Note delayed swallow and no overt s/s of aspiration on trace amount water. Patient was offered different food and drink items, but refused all PO. Patient turned her face away, refused to open her mouth, and became tearful. 04/23/21: DELIVERY PERSON reported that pt accepted a small amount of yogurt during breakfast this date. Pt was cooperative and engaged in session this date. She responded to directions presented by this UNIX ADMINISTRATOR in Vietnamese such as open your mouth . She accepted pureed solids for which a slow but functional oral phase was noted. WFL oral clearance without overt s/s aspiration noted. Pt demonstrated a slow, anterior mastication pattern with intake of a very small piece of a cracker moistened in applesauce. Minimal lingual residuals noted which were cleared with the use of a liquid wash. Pt was dependent for feeding with all PO trials this date. Pt tolerated thin water via small, clinician controlled cup sips with a moderately delayed pharyngeal swallow trigger and no overt s/s aspiration. Delayed coughing was noted after this UNIX ADMINISTRATOR left the room, RN aware. RN to administer medications crushed in puree per this UNIX ADMINISTRATOR's recommendation following session. UNIX ADMINISTRATOR will continue to follow pt throughout her stay. Hand Sizer Clinican/Clinical Fellow: No Supervisory Statement: I have reviewed and agree with the student/clinical fellow's documentation: N/A Speech Language Pathologist: Rachael Cardenas M.A., CCC-UNIX ADMINISTRATOR
--- NOTE | 2021-04-23 11:22 | P.PNIM_ITS ---
Subjective Subjective Date of Service: 04/23/21 Interval History: cc: sob interval history: alert, not talking Review of Systems Review of Systems: Yes Unobtainable due to mental condition Physical Exam Vital Signs: Vital Signs: Last Vital Signs Temp 97 F 04/23/21 11:03 Pulse 100 04/23/21 11:03 Resp 20 04/23/21 11:03 BP 134/64 04/23/21 11:03 Pulse Ox 88 L 04/23/21 11:03 Body Mass Index 29.9 Const Other:?Weepy; intermittently compliant with POs; took some meds with pudding.? Taking tsp water no swallowing issues noted Resp Other:?Diminished at bases with scant crackles at bases.? Scant expiratory wheezes throughout Cardio Other:?No S4; positive S1-S2; no S3 murmurs or gallops GI Other:?Soft nontender nondistended with normoactive bowel sounds. Neuro Other:?Questionable right-sided facial droop this a.m. along with right-sided weakness Extrem Other:?No edema bilaterally Objective Data Active Medications Acetaminophen (Acetaminophen 325 Mg Tablet) 650 mg PO Q6H PRN PRN Reason: Fever Last Admin: 04/19/21 20:33 Dose: 650 mg Documented by: EMILY Acyclovir (Acyclovir 5 % Oint 15 Gm Tube) 1 gm TOPICAL TID [facility] Last Admin: 04/22/21 21:13 Dose: 1 gm Documented by: BARBIE Aripiprazole (Aripiprazole 2 Mg Tablet) 2 mg PO DAILY [facility] Last Admin: 04/23/21 10:01 Dose: 2 mg Documented by: MATTHEW Aspirin (Aspirin 325 Mg Tablet) 325 mg PO DAILY [facility] Last Admin: 04/23/21 10:02 Dose: 325 mg Documented by: MATTHEW Atorvastatin Calcium (Atorvastatin Calcium 40 Mg Tablet) 40 mg PO DAILY@0900 [facility] Last Admin: 04/23/21 10:06 Dose: 40 mg Documented by: MATTHEW Carvedilol (Carvedilol 12.5 Mg Tablet) 25 mg PO BID [facility]; Protocol Last Admin: 04/23/21 10:03 Dose: 25 mg Documented by: MATTHEW Enoxaparin Sodium (Enoxaparin Sodium 40 Mg/0.4 Ml Syringe) 40 mg SUBCUT DAILY [facility] Last Admin: 04/23/21 10:20 Dose: Not Given Documented by: MATTHEW Non-Admin Reason: Patient Refused Famotidine (Famotidine 20 Mg Tablet) 20 mg PO DAILY [facility] Last Admin: 04/23/21 10:03 Dose: 20 mg Documented by: MATTHEW Hydroxyzine HCl (Hydroxyzine Hcl 50 Mg/Ml Vial) 25 mg IM Q4H PRN PRN Reason: anxiety/restlessness Last Admin: 04/20/21 16:20 Dose: 25 mg Documented by: ZENON Levofloxacin (Levaquin) 750 mg in 150 mls @ 100 mls/hr IV Q24H [facility] Stop: 05/03/21 17:29 Last Infusion: 04/22/21 18:10 Dose: 0 mls/hr Documented by: JOAO Dextrose/Sodium Chloride (D51/2ns) 1,000 mls @ 100 mls/hr IVCONT .Q10H [facility] Last Admin: 04/23/21 04:01 Dose: 100 mls/hr Documented by: BARBIE Insulin Glargine (Insulin Glargine,Hum.Rec.Anlog 100 Unit/Ml 10 Ml Vial) 10 unit SUBCUT BID [facility] Last Admin: 04/23/21 10:08 Dose: 10 unit Documented by: MATTHEW Insulin Human Lispro (Insulin Lispro 100 Unit/Ml 3 Ml Vial) 0 unit SUBCUT QIDACHS [facility]; Protocol Last Admin: 04/23/21 10:09 Dose: 4 unit Documented by: MATTHEW Pharmacy Consult (Consult Rx Perform Med Rec) 1 each MISCELLANE ONCE PRN PRN Reason: Consult order Potassium Chloride (Potassium Chloride Packet 20 Meq Packet) 40 meq PO BID [facility] Stop: 04/23/21 21:01 Prednisone (Prednisone 10 Mg Tablet) 10 mg PO DAILY [facility] Stop: 04/24/21 09:01 Last Admin: 04/23/21 10:02 Dose: 10 mg Documented by: MATTHEW Prednisone (Prednisone 5 Mg Tablet) 5 mg PO DAILY [facility] Stop: 04/26/21 09:01 Prednisone (Prednisone 2.5 Mg Tablet) 2.5 mg PO DAILY [facility] Stop: 04/28/21 09:01 Sodium Chloride (0.9 % Sodium Chloride Flush 3 Ml Syringe) 3 ml IVFLUSH QSHIFT [facility] Last Admin: 04/23/21 10:10 Dose: Not Given Documented by: MATTHEW Non-Admin Reason: IV Running Sodium Chloride (0.9 % Sodium Chloride Flush 3 Ml Syringe) 3 ml IVFLUSH QSHIFT [facility] Last Admin: 04/23/21 10:11 Dose: Not Given Documented by: MATTHEW Non-Admin Reason: Duplicate Order Thiamine HCl (Thiamine Hcl 100 Mg Tablet) 200 mg PO BID [facility] Last Admin: 04/23/21 10:01 Dose: 200 mg Documented by: MATTHEW Vitamin D (Cholecalciferol (Vitamin D3) 25 Mcg Tablet) 50 mcg PO DAILY [facility] Last Admin: 04/23/21 10:04 Dose: 50 mcg Documented by: MATTHEW Labs CBC & Chem 7: 04/23/21 06:02 04/23/21 06:02 Labs: Laboratory Results - last 24 hr 04/22/21 04/22/21 04/23/21 16:00 20:09 06:02 MCV 80.8 MCH 25.5 L MCHC 31.6 RDW 15.9 Plt Count 226 MPV 10.8 Immature Gran % (Auto) 0.5 H Neut % (Auto) 76.2 H Lymph % (Auto) 17.7 L Leake % (Auto) 5.1 Eos % (Auto) 0.4 Baso % (Auto) 0.1 Lymph # (Auto) 1.7 Leake # (Auto) 0.5 Eos # (Auto) 0.0 Baso # (Auto) 0.0 Abs Immat Gran (auto) 0.05 H Absolute Neuts (auto) 7.4 Absolute Nucleated RBC 0.000 Nucleated RBC % (auto) 0.0 Anion Gap Estim Creat Clear Calc Estimated GFR POC Glucose 161 H 180 H Fasting Glucose Calcium Phosphorus Magnesium Total Bilirubin AST ALT Alkaline Phosphatase Total Protein Albumin 04/23/21 04/23/21 06:02 07:01 MCV MCH MCHC RDW Plt Count MPV Immature Gran % (Auto) Neut % (Auto) Lymph % (Auto) Leake % (Auto) Eos % (Auto) Baso % (Auto) Lymph # (Auto) Leake # (Auto) Eos # (Auto) Baso # (Auto) Abs Immat Gran (auto) Absolute Neuts (auto) Absolute Nucleated RBC Nucleated RBC % (auto) Anion Gap 9 L Estim Creat Clear Calc 92.6 Estimated GFR > 60 POC Glucose 206 H Fasting Glucose 213 H Calcium 7.8 L D Phosphorus 2.5 L Magnesium 1.7 Total Bilirubin 0.6 AST 25 ALT 17 Alkaline Phosphatase 78 Total Protein 5.5 L Albumin 2.2 L Assessment and Plan (1) Generalized anxiety disorder: Status: Acute (2) Acute respiratory distress syndrome (ARDS) due to COVID-19 virus: Status: Acute Assessment and Plan: 65-year-old moderately obese type 2 diabetic female who was vaccinated but was COVID-19 positive for the pneumonitis/ARDS and acute hypoxemic respiratory failure and encephalopathy as well as acute renal insufficiency.Transferred to floor 04/16/2021; has been hemodynamically stable but essentially nonverbal. TLC/Feeding tube removed. Took spoonfuls of H2o without issue; intermittently taking pills in pudding acute hypoxic respiratory failure due to covid pneumonia complicated by SUDEEP and metabolic encephalopathy successfully extubated, still requiring 8L o2 steroid taper SUDEEP resolved creatinine 2.41 on admission, now 0.52 metabolic Encephalopathy; ICU delerium, improving dysphagia calorie count, if no significant intake will need Gtube DMII insulin, monitor poc hypokalemia replace and monitor dvt prophylaxis - lovenox Quality Stroke Does the patient have a stroke diagnosis?: No VTE Prior VTE?: No VTE Risk Level:: Medical - moderate - high VTE Device Contraindication: Treatment Not Indicated VTE Drug Contraindication: N/A - Med Ordered
[2021-04-23 11:23] LABS: Glucose, Whole Blood 222 mg/dL (60-115)
--- NOTE | 2021-04-23 11:23 | PC.NURSE ---
Pt had her meds crushed in applesauce this AM but only had 1 of 2 spoonfuls. She has been refusing/resisting meds and food prior to today.
[2021-04-23] MEDS: Potassium Chloride Packet 20 MEQ PACKET 40 MEQ PO (12:26)
[2021-04-23] MEDS: Acyclovir 5 % Oint 15 GM TUBE TOPICAL ×3 (12:39→22:04)
--- NOTE | 2021-04-23 13:29 | PC.NURSE ---
Pt ate 0% lunch, refused Klor-Con. notified.
[2021-04-23] MEDS: Potassium Chloride/H20 10 MEQ/100 ML PIGGYBACK 100 MEQ IV ×4 (13:32→19:40)
--- NOTE | 2021-04-23 13:44 | MHC.CLN ---
RE: CONSULT CALORIE COUNT REQUESTED DAY ONE; MEAL ONE - PT CONSUMED 0% AT LUNCH AND REFUSED MEDS PER NSG PT WITHOUT NGT SINCE 04/21 PT HAS ONLY CONSUMED SOME SIPS/BITES INTERMITTENTLY CALORIE COUNT TO CONTINUE X 3 DAYS (STOP DATE 04/26/31 AFTER BREAKFAST) NSG AND KITCHEN/GSR AWARE
[2021-04-23 16:05] LABS: Glucose, Whole Blood 142 mg/dL (60-115)
[2021-04-23] MEDS: 0.9 % Sodium Chloride Flush 3 ML SYRINGE IVFLUSH ×2 (16:29→21:23)
[2021-04-23 20:08] LABS: Glucose, Whole Blood 187 mg/dL (60-115)
[2021-04-24] VITALS (8 sets, daily range): BP systolic 95–150; BP diastolic 54–81; PULSE 9–108; RESP 18–22; TEMP 36.1–36.8; O2SAT 90–97; BMI 31.3
[2021-04-24] MEDS: 0.9 % Sodium Chloride Flush 3 ML SYRINGE IVFLUSH ×5 (02:40→13:16)
[2021-04-24 06:53] LABS: Hematocrit 30.6 % (37-47); Hemoglobin 9.4 g/dl (12.0-16.0); Mean Corpuscular HGB Conc 30.7 g/dl (31.0-35.0); Mean Corpuscular Hemoglobin 24.7 pg (27.0-33.0); Mean Corpuscular Volume 80.3 fL (80-98); Mean Platelet Volume 10.7 fL (9.4-12.3); Platelet Count 254 X10*3/uL (160-400); Red Blood Count 3.81 X10*6/uL (4.20-5.50); White Blood Count 10.5 X10*3/uL (4.8-10.8)
[2021-04-24 07:13] LABS: Blood Urea Nitrogen 8 mg/dL (9-16); Calcium 8.1 mg/dL (8.4-10.2); Creatinine Clr Calc Pharmacy 96.6; Estimated Glomerular Filt Rate > 60; Glucose Fasting 180 mg/dL (60-99); Magnesium 1.9 mg/dL (1.6-2.6)
[2021-04-24 07:16] LABS: Glucose, Whole Blood 176 mg/dL (60-115)
[2021-04-24 07:26] LABS: Anion Gap 10 (12-20); Carbon Dioxide 29 mmol/L (22-29); Chloride 101 mmol/L (96-108); Potassium 2.8 mmol/L (3.3-5.1); Sodium 137 mmol/L (135-145)
--- NOTE | 2021-04-24 08:29 | MHC.CM.PN ---
dc plan is to str when medically stable. refs have been made and snf's are following patient. cm to cont. to follow.
[2021-04-24] MEDS: Thiamine HCL 100 MG TABLET 200 MG PO (09:50)
[2021-04-24] MEDS: Atorvastatin Calcium 40 MG TABLET PO (09:51)
[2021-04-24] MEDS: Famotidine 20 MG TABLET PO (09:51)
[2021-04-24] MEDS: Aspirin 325 MG TABLET PO (09:51)
[2021-04-24] MEDS: Cholecalciferol (Vitamin D3) 25 MCG TABLET 50 MCG PO (09:52)
[2021-04-24] MEDS: carvediloL 12.5 MG TABLET 25 MG PO ×2 (09:52→21:08)
[2021-04-24] MEDS: Insulin Glargine,Hum.rec.anlog 100 UNIT/ML 10 ML VIAL 10 UNIT SUBCUT ×2 (09:53→20:48)
[2021-04-24] MEDS: Insulin Lispro 100 UNIT/ML 3 ML VIAL SUBCUT ×4 (09:53→20:49)
[2021-04-24] MEDS: ARIPiprazole 2 MG TABLET PO (09:53)
[2021-04-24] MEDS: Enoxaparin Sodium 40 MG/0.4 ML SYRINGE SUBCUT (09:54)
[2021-04-24] MEDS: Acyclovir 5 % Oint 15 GM TUBE TOPICAL ×3 (10:02→21:09)
--- NOTE | 2021-04-24 10:10 | MHC.CLN ---
RE: CONSULT FOR CALORIE COUNT DAY ONE CALORIE COUNT COMPLETE LUNCH 04/23 0% CONSUMED DINNER 04/23 0% CONSUMED BREAKFAST 04/24 CONSUMED 290KCALS, 11G PROTEIN PT'S ESTIMATED NUTRITION NEEDS (ENN): 1800-2190KCALS, 73-88G PROTEIN PT MEETING ONLY 16% ESTIMATED KCALS, 12% ESTIMATED PROTEIN NEEDS NOTED ALBUMIN 2.2 -SEVERELY DEPLETED VISCERAL PROTEIN STORES PT IS DAY 3 OF POOR PO RECOMMEND LIBERALIZING DIET TO REGULAR GRD/M/S-D/C 1800DM DIET RESTRICTION TO OFFER MORE VARIETY RECOMMEND CHANGING SUPPLEMENT TO ENSURE BID TO PROVIDE 700KCALS, 40G PROTEIN WITH 100% ACCEPTANCE FROM PT CALORIE COUNT CONTINUES NSG, KITCHEN/GSR, AND MD AWARE
--- NOTE | 2021-04-24 10:32 | MHC.SL.SWA ---
Speech Pathologist Impression: Risk of Aspiration Oralpharyngeal Dysphagia Risk of Aspiration Due to: Lethargy Medically Fragile History of Pneumonia Hx of Recent Extubation Weak Cough Weak Voice Dysphasia Diet Status: UPGRADE Liquid Consistency and Strategies for Safe Swallow: Liquid Intake Recommendation: Thin Liquid Intake Strategies: Small Sips Solid Food Consistency: Dietary Recommendations: Chopped/Advanced (NDD3) Recommend CHOPPED/ADVANCED (NDD3) solids moistened with sauce/gravy as needed; THIN liquids via small, staff controlled sips; Pills to be administered CRUSHED in PUREE. Pt requires strict aspiration precautions and 1:1 assist with all PO intake. Hold PO if pt becomes lethargic or demonstrates overt s/s aspiration during/after PO intake. Diet order updated by MEDICAL LABORATORY TECHNICIANS. Message sent to RN, RD, and MD. Oral Medication Intake: Crushed with Puree Compensatory Strategies and Precautions to be Taken for Safe Swallow: Sitting Upright (90 deg) Small Bites and Sips Alternate Liquids/Solids Rate of Ingestion Change Avoid Specific Foods Supervision While Eating and Drinking for Safe Swallow: Total Assistance Foods to Avoid: Avoid tough, sticky, difficult to chew foods Swallowing Recommended Treatments: Compens. Strategy Educat. Recommendation for Speech: MEDICAL LABORATORY TECHNICIANS to continue to follow daily during hospitalization as appropriate M-F. Tram Driver Clinican/Clinical Fellow: No Supervisory Statement: I have reviewed and agree with the student/clinical fellow's documentation: N/A Speech Language Pathologist: Kenya Quiroz M.A., [facility]CHNIC[facility]
[2021-04-24 11:03] LABS: Glucose, Whole Blood 284 mg/dL (60-115)
--- NOTE | 2021-04-24 11:46 | P.PNIM_ITS ---
Subjective Subjective Date of Service: 04/24/21 Interval History: cc: sob interval history: denies pain, sob Cardiovascular Cardiovascular: Reports no additional cardiovascular complaints Respiratory Respiratory: Reports no additional respiratory complaints Physical Exam Vital Signs: Vital Signs: Last Vital Signs Temp 97.0 F 04/24/21 11:17 Pulse 95 04/24/21 11:17 Resp 20 04/24/21 11:17 BP 95/54 L 04/24/21 11:17 Pulse Ox 95 04/24/21 11:17 Body Mass Index 31.3 General: Alert, occasionally weepy/anxious, otherwise no acute distress Resp: Crackles bilateral, no accessory muscles used CVS: S1,S2,RRR GI: soft, non tender, non distended Neuro: motor grossly intact, alert Psych: impaired insight Objective Data Active Medications Acetaminophen (Acetaminophen 325 Mg Tablet) 650 mg PO Q6H PRN PRN Reason: Fever Last Admin: 04/19/21 20:33 Dose: 650 mg Documented by: EMILY Acyclovir (Acyclovir 5 % Oint 15 Gm Tube) 1 gm TOPICAL TID [facility] Last Admin: 04/24/21 10:02 Dose: 1 gm Documented by: MATTHEW Aripiprazole (Aripiprazole 2 Mg Tablet) 2 mg PO DAILY [facility] Last Admin: 04/24/21 09:53 Dose: 2 mg Documented by: MATTHEW Aspirin (Aspirin 325 Mg Tablet) 325 mg PO DAILY [facility] Last Admin: 04/24/21 09:51 Dose: 325 mg Documented by: MATTHEW Atorvastatin Calcium (Atorvastatin Calcium 40 Mg Tablet) 40 mg PO DAILY@0900 [facility] Last Admin: 04/24/21 09:51 Dose: 40 mg Documented by: MATTHEW Carvedilol (Carvedilol 12.5 Mg Tablet) 25 mg PO BID [facility]; Protocol Last Admin: 04/24/21 09:52 Dose: 25 mg Documented by: MATTHEW Enoxaparin Sodium (Enoxaparin Sodium 40 Mg/0.4 Ml Syringe) 40 mg SUBCUT DAILY [facility] Last Admin: 04/24/21 09:54 Dose: 40 mg Documented by: MATTHEW Famotidine (Famotidine 20 Mg Tablet) 20 mg PO DAILY [facility] Last Admin: 04/24/21 09:51 Dose: 20 mg Documented by: MATTHEW Hydroxyzine HCl (Hydroxyzine Hcl 50 Mg/Ml Vial) 25 mg IM Q4H PRN PRN Reason: anxiety/restlessness Last Admin: 04/20/21 16:20 Dose: 25 mg Documented by: ZENON Insulin Glargine (Insulin Glargine,Hum.Rec.Anlog 100 Unit/Ml 10 Ml Vial) 10 unit SUBCUT BID [facility] Last Admin: 04/24/21 09:53 Dose: 10 unit Documented by: MATTHEW Insulin Human Lispro (Insulin Lispro 100 Unit/Ml 3 Ml Vial) 0 unit SUBCUT Q IDACHS [facility]; Protocol Last Admin: 04/24/21 09:53 Dose: 2 unit Documented by: MATTHEW Pharmacy Consult (Consult Rx Perform Med Rec) 1 each MISCELLANE ONCE PRN PRN Reason: Consult order Prednisone (Prednisone 5 Mg Tablet) 5 mg PO DAILY [facility] Stop: 04/26/21 09:01 Prednisone (Prednisone 2.5 Mg Tablet) 2.5 mg PO DAILY [facility] Stop: 04/28/21 09:01 Sodium Chloride (0.9 % Sodium Chloride Flush 3 Ml Syringe) 3 ml IVFLUSH QSNEFT [facility] Last Admin: 04/24/21 10:08 Dose: 3 ml Documented by: MATTHEW Sodium Chloride (0.9 % Sodium Chloride Flush 3 Ml Syringe) 3 ml IVFLUSH [facility] Last Admin: 04/24/21 02:40 Dose: 3 ml Documented by: ANANT Thiamine HCl (Thiamine Hcl 100 Mg Tablet) 200 mg PO BID [facility] Last Admin: 04/24/21 09:50 Dose: 200 mg Documented by: MATTHEW Vitamin D (Cholecalciferol (Vitamin D3) 25 Mcg Tablet) 50 mcg PO DAILY [facility] Last Admin: 04/24/21 09:52 Dose: 50 mcg Documented by: MATTHEW Labs CBC & Chem 7: 04/24/21 06:32 04/24/21 06:32 Labs: Laboratory Results - last 24 hr 04/23/21 04/23/21 04/24/21 16:00 20:03 06:32 MCV 80.3 MCH 24.7 L MCHC 30.7 L RDW 16.0 Plt Count 254 MPV 10.7 Absolute Nucleated RBC 0.000 Nucleated RBC % (auto) 0.0 Anion Gap Estim Creat Clear Calc Estimated GFR POC Glucose 142 H 187 H Fasting Glucose Calcium Magnesium 04/24/21 04/24/21 04/24/21 06:32 07:06 10:53 MCV MCH MCHC RDW Plt Count MPV Absolute Nucleated RBC Nucleated RBC % (auto) Anion Gap 10 L Estim Creat Clear Calc 96.6 Estimated GFR > 60 POC Glucose 176 H 284 H Fasting Glucose 180 H Calcium 8.1 L Magnesium 1.9 Assessment and Plan (1) Generalized anxiety disorder: Status: Acute (2) Acute respiratory distress syndrome (ARDS) due to COVID-19 virus: Status: Acute Assessment and Plan: 65-year-old moderately obese type 2 diabetic female who was vaccinated but was COVID-19 positive for the pneumonitis/ARDS and acute hypoxemic respiratory failure and encephalopathy as well as acute renal insufficiency.Transferred to floor 04/16/2021; has been hemodynamically stable but essentially nonverbal. TLC/Feeding tube removed. Took spoonfuls of H2o without issue; intermittently taking pills in pudding acute hypoxic respiratory failure due to covid pneumonia complicated by SUDEEP and metabolic encephalopathy successfully extubated desaturates to 70s on minimal exertion, at rest on 6L steroid taper SUDEEP resolved creatinine 2.41 on admission, now 0.51 metabolic Encephalopathy; ICU delerium, improving dysphagia calorie count - so far not taking much, if no significant intake will recommend Gtube, however, family likely feels patient's intake will improve at home and will likely not want Gtube even if no significant intake. DMII insulin, monitor poc hypokalemia still low, 2.8, replace and monitor dvt prophylaxis - lovenox Quality Stroke Does the patient have a stroke diagnosis?: No VTE Prior VTE?: No VTE Risk Level:: Medical - moderate - high VTE Device Contraindication: Treatment Not Indicated VTE Drug Contraindication: N/A - Med Ordered
[2021-04-24] MEDS: predniSONE 10 MG TABLET PO (12:07)
[2021-04-24] MEDS: Potassium Chloride/H20 10 MEQ/100 ML PIGGYBACK 100 MEQ IV ×4 (13:07→17:35)
[2021-04-24 16:10] LABS: Glucose, Whole Blood 243 mg/dL (60-115)
[2021-04-24 20:20] LABS: Glucose, Whole Blood 301 mg/dL (60-115)
[2021-04-25] VITALS (15 sets, daily range): BP systolic 105–159; BP diastolic 56–88; PULSE 66–118; RESP 18–22; TEMP 36.4–36.7; O2SAT 80–100; BMI 31.4
[2021-04-25 07:00] LABS: Hematocrit 30.1 % (37-47); Hemoglobin 9.5 g/dl (12.0-16.0); Mean Corpuscular HGB Conc 31.6 g/dl (31.0-35.0); Mean Corpuscular Hemoglobin 25.2 pg (27.0-33.0); Mean Corpuscular Volume 79.8 fL (80-98); Mean Platelet Volume 10.7 fL (9.4-12.3); Platelet Count 254 X10*3/uL (160-400); Red Blood Count 3.77 X10*6/uL (4.20-5.50); Red Cell Distribution Width 15.9 % (11.0-16.0); White Blood Count 9.7 X10*3/uL (4.8-10.8)
[2021-04-25 07:39] LABS: Anion Gap 8 (12-20); Blood Urea Nitrogen 11 mg/dL (9-16); Carbon Dioxide 31 mmol/L (22-29); Chloride 102 mmol/L (96-108); Creatinine Clr Calc Pharmacy 105.1; Estimated Glomerular Filt Rate > 60; Glucose Fasting 148 mg/dL (60-99); Potassium 3.2 mmol/L (3.3-5.1); Sodium 138 mmol/L (135-145)
[2021-04-25 07:58] LABS: Glucose, Whole Blood 146 mg/dL (60-115)
[2021-04-25] MEDS: 0.9 % Sodium Chloride Flush 3 ML SYRINGE IVFLUSH ×6 (10:12→20:21)
[2021-04-25] MEDS: Enoxaparin Sodium 40 MG/0.4 ML SYRINGE SUBCUT (10:12)
[2021-04-25] MEDS: Insulin Glargine,Hum.rec.anlog 100 UNIT/ML 10 ML VIAL 10 UNIT SUBCUT ×2 (10:13→20:18)
[2021-04-25] MEDS: Aspirin 325 MG TABLET PO (10:13)
[2021-04-25] MEDS: ARIPiprazole 2 MG TABLET PO (10:13)
[2021-04-25] MEDS: Famotidine 20 MG TABLET PO (10:13)
[2021-04-25] MEDS: Thiamine HCL 100 MG TABLET 200 MG PO (10:13)
[2021-04-25] MEDS: Potassium Chloride/H20 10 MEQ/100 ML PIGGYBACK 100 MEQ IV ×4 (10:14→16:00)
[2021-04-25] MEDS: Cholecalciferol (Vitamin D3) 25 MCG TABLET 50 MCG PO (10:14)
[2021-04-25] MEDS: Atorvastatin Calcium 40 MG TABLET PO (10:14)
[2021-04-25] MEDS: carvediloL 12.5 MG TABLET 25 MG PO (10:14)
[2021-04-25] MEDS: predniSONE 5 MG TABLET PO (10:14)
[2021-04-25] MEDS: Acyclovir 5 % Oint 15 GM TUBE TOPICAL ×2 (10:15→16:00)
[2021-04-25 11:27] LABS: Glucose, Whole Blood 288 mg/dL (60-115)
--- NOTE | 2021-04-25 11:48 | MHC.SL.DTX ---
Dysphagia Diet modifications: Last documented Solid diet consistencies: Chopped/Advanced (NDD3) Last documented Liquid consistency: Thin Changes made to current diet?: No: Continue with CHOPPED/ADVANCED (NDD3) solids and THIN liquids, pills CRUSHED in puree. Pt continues to require aspiration precautions and 1:1 supervision/assistance with feeding. Liquid Consistency and Strategies: Liquid Intake Recommendation: Thin Compensatory Strategies for Safe Swallow: Small Sips Compensatory Strategies for Safe Swallow(b): Sitting Upright (90 deg) Small Bites and Sips Alternate Liquids/Solids Rate of Ingestion Change Avoid Specific Foods Solid Food Consistency: Dietary Recommendations: Chopped/Advanced (NDD3) Additional Modifications to Solids: Oral Medication Intake: Crushed with Puree Strategies and Precautions to be Taken for Safe Swallow: Sitting Upright (90 deg) Small Bites and Sips Alternate Liquids/Solids Rate of Ingestion Change Avoid Specific Foods Supervision While Eating and/Drinking: Total Assistance Foods to Avoid: Avoid tough, sticky, difficult to chew foods Swallowing Recommended Treatments: Compens. Strategy Educat. Level of Impact on: Daily activities: Moderate Interpersonal interactions: Community: Moderate Prognosis for Improvement: Fair Recommendation for Speech: Continue with inpatient dysphagia tx. Comment: Patient was seen for bedside dysphagia evaluation on 04/15/21. Patient was intubated 03/29/21 - 04/11/21. Patient was extubated to high flow nasal cannula successfully. Patient failed nursing swallow screenings on 04/11 and 04/12. Per RN report, patient requires suctioning and has weak cough. Patient presented with dried secretions on lips and tongue. Patient was provided with oral care with mouthwash and swab. No swallow with mouthwash, but noted gurgly throat sound. Patient was asked to initiate volitional swallow. Patient attempted swallow and this appeared effortful. However, upon palpation, no laryngeal elevation. Patient was asked to produce cough. Patient has extremely weak cough. Patient would not be able to protect airway. No PO trials administered due to patient's need for suctioning, absent swallow trigger, and extremely weak cough. 04/16/21- Patient declined PO trials. Patient as unable/unwilling to elicit volitional dry swallow at that time. RN yesterday reported severe motor weakness and liquid spilled from oral cavity when screening was attempted. Patient continues to receive KO feeds via right nare. Her chest x-ray on 04/16 showed, unchanged multifocal airspace disease the lungs compared with 04/12/21. 04/17/21- Patient was seen by Swedish-speaking TRAVELING ACCOUNTANT. Patient followed command for volitional dry swallow. Dry swallow was delayed and appeared effortful. Note significantly reduced laryngeal elevation. When given trace water, note complete anterior spillage. Patient then refused, becoming tearful. 04/21/21- RN reports patient continues to refuse PO. Per RN, patient was not appropriate for PO trials this date. TRAVELING ACCOUNTANT checked in with Dr. Hernandez. TRAVELING ACCOUNTANT recommended NPO status last week 04/15, 04/17, 04/18. TRAVELING ACCOUNTANT updated MD on observations made last week- extremely weak cough, delayed/effortful dry swallow, anterior loss of water, refusal to participate in dysphagia treatment. Per MD, diet order was changed to ground/mechanically altered diet in hopes patient would do better without NGT. 04/22/21-RN reports that patient continues to refuse PO and spits out her medications. TRAVELING ACCOUNTANT. Patient was able to swallow on command x2 times. Dry swallow was significantly delayed and laryngeal elevation incomplete. Patient accepted trace amount of water. Note delayed swallow and no overt s/s of aspiration on trace amount water. Patient was offered different food and drink items, but refused all PO. Patient turned her face away, refused to open her mouth, and became tearful. 04/25- Per RD's note, pt has been receiving calorie counts due to poor PO intake. 04/24 marked day 3 of poor PO intake. Per RN this date, pt consumed 100% of her breakfast and tolerated it without overt difficulty. Pt was advanced to NDD3 CHOPPED/ADVANCED solids 04/24. Pt appeared eager when presented with PO trials this date. She consumed 2 entire crackers moistened in puree, an entire container of applesauce, and 4 oz of thin liquids. Pt tolerated solids with a mildly prolonged oral phase with min lingual residuals noted. A liquid wash was effective in clearing residuals. Pt demonstrated no overt s/s aspiration with solids or liquids this date. Updated with RN and RD. Continue with CHOPPED/ADVANCED (NDD3) solids and THIN liquids, pills CRUSHED in PUREE, aspiration precautions, and assistance/supervision with PO intake. Apprentice Machinist Outside Clinican/Clinical Fellow: No Supervisory Statement: I have reviewed and agree with the student/clinical fellow's documentation: N/A Speech Language Pathologist: Rachael Cardenas M.A., [facility]-TRAVELING ACCOUNTANT
--- NOTE | 2021-04-25 11:52 | MHC.CLN ---
RE: CONSULT FOR CALORIE COUNT DAY TWO CALORIE COUNT COMPLETE LUNCH 04/24 182KCALS, 9.4G PROTEIN CONSUMED DINNER 04/24 152KCALS, 3.3G PROTEIN CONSUMED BREAKFAST 04/25 236KCALS, 10.9G PROTEIN CONSUMED PT CONSUMED 570KCALS, 23.6G PROTEIN TOTAL FOR DAY TWO PT'S ESTIMATED NUTRITION NEEDS (ENN): 1800-2190KCALS, 73-88G PROTEIN PT MEETING ONLY 32% ESTIMATED KCALS, 27% ESTIMATED PROTEIN NEEDS DISCUSSED WITH SIGN MAINTENANCE WHO REPORTED PT MADE SOME SMALL GAINS IN PO TRIAL AND CONSUMED 2 MAXINE CRAX, APPLESAUCE AND 4OZ JUICE FOOD PREFERENCES RECORDED AND SENT TO [facility] AWARE; FAMILY WANTS TO HOLD ON G-TUBE FOR NOW ENCOURAGE NUTRITION SUPPLEMENT BETWEEN MEALS FOR INCREASED KCALS/PROTEIN CALORIE COUNT CONTINUES NSG, KITADA/GSR, AND AWARE
--- NOTE | 2021-04-25 12:04 | P.PNIM_ITS ---
Subjective Subjective Date of Service: 04/25/21 Interval History: cc: sob interval history: no complaints today Cardiovascular Cardiovascular: Reports no additional cardiovascular complaints Gastrointestinal Gastrointestinal: Reports no additional gastrointestinal complaints Physical Exam Vital Signs: Vital Signs: Last Vital Signs Temp 97.5 F 04/25/21 08:00 Pulse 88 04/25/21 10:14 Resp 20 04/25/21 08:00 BP 142/66 H 04/25/21 10:14 Pulse Ox 100 04/25/21 08:00 Body Mass Index 31.4 General: Alert, occasionally weepy/anxious, otherwise no acute distress Resp:? Crackles bilateral, no accessory muscles used CVS: S1,S2,RRR GI: soft, non tender, non distended Neuro:? motor grossly intact, alert Psych:? impaired insight? Objective Data Active Medications Acetaminophen (Acetaminophen 325 Mg Tablet) 650 mg PO Q6H PRN PRN Reason: Fever Last Admin: 04/19/21 20:33 Dose: 650 mg Documented by: EMILY Acyclovir (Acyclovir 5 % Oint 15 Gm Tube) 1 gm TOPICAL TID [facility] Last Admin: 04/25/21 10:15 Dose: 1 gm Documented by: TONI Aripiprazole (Aripiprazole 2 Mg Tablet) 2 mg PO DAILY [facility] Last Admin: 04/25/21 10:13 Dose: 2 mg Documented by: TONI Aspirin (Aspirin 325 Mg Tablet) 325 mg PO DAILY [facility] Last Admin: 04/25/21 10:13 Dose: 325 mg Documented by: TONI Atorvastatin Calcium (Atorvastatin Calcium 40 Mg Tablet) 40 mg PO DAILY@0900 [facility] Last Admin: 04/25/21 10:14 Dose: 40 mg Documented by: TONI Carvedilol (Carvedilol 12.5 Mg Tablet) 25 mg PO BID [facility]; Protocol Last Admin: 04/25/21 10:14 Dose: 25 mg Documented by: TONI Enoxaparin Sodium (Enoxaparin Sodium 40 Mg/0.4 Ml Syringe) 40 mg SUBCUT DAILY [facility] Last Admin: 04/25/21 10:12 Dose: 40 mg Documented by: TONI Famotidine (Famotidine 20 Mg Tablet) 20 mg PO DAILY [facility] Last Admin: 04/25/21 10:13 Dose: 20 mg Documented by: TONI Hydroxyzine HCl (Hydroxyzine Hcl 50 Mg/Ml Vial) 25 mg IM Q4H PRN PRN Reason: anxiety/restlessness Last Admin: 04/20/21 16:20 Dose: 25 mg Documented by: ZENON Potassium Chloride () 10 meq in 100 mls @ 100 mls/hr IV Q1H [facility] Stop: 04/25/21 13:59 Last Admin: 04/25/21 10:14 Dose: 100 mls/hr Documented by: TONI Insulin Glargine (Insulin Glargine,Hum.Rec.Anlog 100 Unit/Ml 10 Ml Vial) 10 unit SUBCUT BID [facility] Last Admin: 04/25/21 10:13 Dose: 10 unit Documented by: TONI Insulin Human Lispro (Insulin Lispro 100 Unit/Ml 3 Ml Vial) 0 unit SUBCUT QIDA [facility]; Protocol Last Admin: 04/25/21 08:00 Dose: Not Given Documented by: TONI Non-Admin Reason: No Insulin Coverage Pharmacy Consult (Consult Rx Perform Med Rec) 1 each MISCELLANE ONCE PRN PRN Reason: Consult order Prednisone (Prednisone 5 Mg Tablet) 5 mg PO DAILY [facility] Stop: 04/26/21 09:01 Last Admin: 04/25/21 10:14 Dose: 5 mg Documented by: TONI Prednisone (Prednisone 2.5 Mg Tablet) 2.5 mg PO DAILY [facility] Stop: 04/28/21 09:01 Sodium Chloride (0.9 % Sodium Chloride Flush 3 Ml Syringe) 3 ml IVFLUSH [facility] Last Admin: 04/25/21 10:12 Dose: 3 ml Documented by: TONI Sodium Chloride (0.9 % Sodium Chloride Flush 3 Ml Syringe) 3 ml IVFLUSH [facility] Last Admin: 04/25/21 10:12 Dose: 3 ml Documented by: TONI Thiamine HCl (Thiamine Hcl 100 Mg Tablet) 200 mg PO BID [facility] Last Admin: 04/25/21 10:13 Dose: 200 mg Documented by: TONI Vitamin D (Cholecalciferol (Vitamin D3) 25 Mcg Tablet) 50 mcg PO DAILY [facility] Last Admin: 04/25/21 10:14 Dose: 50 mcg Documented by: TONI Labs CBC & Chem 7: 04/25/21 06:26 04/25/21 06:26 Labs: Laboratory Results - last 24 hr 04/24/21 04/24/21 04/25/21 16:03 20:14 06:26 MCV 79.8 L MCH 25.2 L MCHC 31.6 RDW 15.9 Plt Count 254 MPV 10.7 Absolute Nucleated RBC 0.000 Nucleated RBC % (auto) 0.0 Anion Gap Estim Creat Clear Calc Estimated GFR POC Glucose 243 H 301 H Fasting Glucose Calcium 04/25/21 04/25/21 04/25/21 06:26 07:53 11:20 MCV MCH MCHC RDW Plt Count MPV Absolute Nucleated RBC Nucleated RBC % (auto) Anion Gap 8 L Estim Creat Clear Calc 105.1 Estimated GFR > 60 POC Glucose 146 H 288 H Fasting Glucose 148 H Calcium 8.0 L Quality Stroke Does the patient have a stroke diagnosis?: No VTE Prior VTE?: No VTE Risk Level:: Medical - moderate - high VTE Device Contraindication: Treatment Not Indicated VTE Drug Contraindication: N/A - Med Ordered
[2021-04-25] MEDS: Insulin Lispro 100 UNIT/ML 3 ML VIAL SUBCUT ×2 (12:11→16:29)
[2021-04-25 16:03] LABS: Glucose, Whole Blood 235 mg/dL (60-115)
[2021-04-25] MEDS: Furosemide 40 MG/4 ML VIAL IVPUSH (17:14)
--- NOTE | 2021-04-25 18:19 | PC.NURSE ---
Patient's SpO2 decreased this afternoon. Patient's SpO2 was above 90% this morning while on 15L ugalde. Then, patient's SpO2 dropped to low 80's on 15L. Non-rebreather was placed in addition to the 15L. SpO2 increased to mid-90's. Dr. Bolton was made aware. Attempts were made to wean patient off non-rebreather but patient was not able to maintained an SpO2 above 90% without it. Chest xray was ordered. 1x order of IVP Lasix was administered.
[2021-04-25 19:19] LABS: COVID-19 Test Negative (Negative)
[2021-04-25 19:50] LABS: Glucose, Whole Blood 120 mg/dL (60-115)
[2021-04-25 21:04] LABS: ABG HCO3 35 mmol/L (22-26); ABG pCO2 40 mmHg (32-45); ABG pCO2 TC 39 mmHg (32-45); ABG pH 7.55 (7.35-7.45); ABG pH TC 7.55 (7.35-7.45); ABG pO2 68 mmHg (83-108); ABG pO2 TC 67 (83-108)
[2021-04-25 21:08] LABS: ABG Refer to POC result
--- NOTE | 2021-04-25 22:33 | PC.NURSE ---
Pt noted to be very lethargic on assessment. Refusing to talk or respond to questions, becoming weepy frequently. Vital signs stable. Able to move extremities and arousable to name. Pt refusing to take PO medications, Dr. Stuart aware. ABGs ordered. Will continue to monitor, giving report to another RN at 2300.
[2021-04-26] VITALS (8 sets, daily range): BP systolic 96–140; BP diastolic 57–75; PULSE 89–124; RESP 16–20; TEMP 36.2–37.6; O2SAT 86–99; BMI 29.8
[2021-04-26 06:57] LABS: Hematocrit 32.8 % (37-47); Hemoglobin 9.8 g/dl (12.0-16.0); Mean Corpuscular HGB Conc 29.9 g/dl (31.0-35.0); Mean Corpuscular Hemoglobin 24.4 pg (27.0-33.0); Mean Corpuscular Volume 81.6 fL (80-98); Mean Platelet Volume 10.7 fL (9.4-12.3); Platelet Count 270 X10*3/uL (160-400); Red Blood Count 4.02 X10*6/uL (4.20-5.50); White Blood Count 10.3 X10*3/uL (4.8-10.8)
[2021-04-26 07:22] LABS: Anion Gap 10 (12-20); Blood Urea Nitrogen 15 mg/dL (9-16); Calcium 8.3 mg/dL (8.4-10.2); Carbon Dioxide 33 mmol/L (22-29); Chloride 97 mmol/L (96-108); Creatinine Clr Calc Pharmacy 92.4; Estimated Glomerular Filt Rate > 60; Glucose Fasting 158 mg/dL (60-99); Potassium 3.4 mmol/L (3.3-5.1); Sodium 137 mmol/L (135-145)
[2021-04-26 07:58] LABS: Glucose, Whole Blood 258 mg/dL (60-115)
[2021-04-26] MEDS: Famotidine 20 MG TABLET PO (09:07)
[2021-04-26] MEDS: carvediloL 12.5 MG TABLET 25 MG PO ×2 (09:07→22:07)
[2021-04-26] MEDS: Thiamine HCL 100 MG TABLET 200 MG PO ×2 (09:08→22:04)
[2021-04-26] MEDS: ARIPiprazole 2 MG TABLET PO (09:08)
[2021-04-26] MEDS: predniSONE 5 MG TABLET PO (09:08)
[2021-04-26] MEDS: Atorvastatin Calcium 40 MG TABLET PO (09:08)
[2021-04-26] MEDS: Aspirin 325 MG TABLET PO (09:09)
[2021-04-26] MEDS: Cholecalciferol (Vitamin D3) 25 MCG TABLET 50 MCG PO (09:09)
[2021-04-26] MEDS: Insulin Lispro 100 UNIT/ML 3 ML VIAL SUBCUT ×3 (09:10→22:04)
[2021-04-26] MEDS: 0.9 % Sodium Chloride Flush 3 ML SYRINGE IVFLUSH ×3 (09:10→22:05)
[2021-04-26] MEDS: Insulin Glargine,Hum.rec.anlog 100 UNIT/ML 10 ML VIAL 10 UNIT SUBCUT ×2 (09:10→22:04)
[2021-04-26] MEDS: Enoxaparin Sodium 40 MG/0.4 ML SYRINGE SUBCUT (09:13)
--- NOTE | 2021-04-26 11:23 | P.PNIM_ITS ---
Subjective Subjective Date of Service: 04/26/21 Interval History: ?cc: sob interval history: no complaints today Cardiovascular Cardiovascular: Reports no additional cardiovascular complaints Respiratory Respiratory: Reports no additional respiratory complaints Physical Exam Vital Signs: Vital Signs: Last Vital Signs Temp 97.1 F 04/26/21 07:57 Pulse 105 H 04/26/21 09:07 Resp 18 04/26/21 07:57 BP 130/62 04/26/21 09:07 Pulse Ox 86 L 04/26/21 07:57 Body Mass Index 29.8 General: Alert, occasionally weepy/anxious, otherwise no acute distress Resp:? Crackles bilateral, no accessory muscles used CVS: S1,S2,RRR GI: soft, non tender, non distended Neuro:? motor grossly intact, alert Psych:? impaired insight? Objective Data Active Medications Acetaminophen (Acetaminophen 325 Mg Tablet) 650 mg PO Q6H PRN PRN Reason: Fever Last Admin: 04/19/21 20:33 Dose: 650 mg Documented by: EMILY Acyclovir (Acyclovir 5 % Oint 15 Gm Tube) 1 gm TOPICAL TID [facility] Last Admin: 04/25/21 20:22 Dose: Not Given Documented by: [place] Non-Admin Reason: Patient Refused Aripiprazole (Aripiprazole 2 Mg Tablet) 2 mg PO DAILY [facility] Last Admin: 04/26/21 09:08 Dose: 2 mg Documented by: MATTHEW Aspirin (Aspirin 325 Mg Tablet) 325 mg PO DAILY [facility] Last Admin: 04/26/21 09:09 Dose: 325 mg Documented by: MATTHEW Atorvastatin Calcium (Atorvastatin Calcium 40 Mg Tablet) 40 mg PO DAILY@0900 [facility] Last Admin: 04/26/21 09:08 Dose: 40 mg Documented by: MATTHEW Carvedilol (Carvedilol 12.5 Mg Tablet) 25 mg PO BID [facility]; Protocol Last Admin: 04/26/21 09:07 Dose: 25 mg Documented by: MATTHEW Enoxaparin Sodium (Enoxaparin Sodium 40 Mg/0.4 Ml Syringe) 40 mg SUBCUT DAILY [facility] Last Admin: 04/26/21 09:13 Dose: 40 mg Documented by: MATTHEW Famotidine (Famotidine 20 Mg Tablet) 20 mg PO DAILY [facility] Last Admin: 04/26/21 09:07 Dose: 20 mg Documented by: MATTHEW Furosemide (Furosemide 40 Mg/4 Ml Vial) 40 mg IVPUSH ONCE ONE; Protocol Stop: 04/26/21 11:23 Hydroxyzine HCl (Hydroxyzine Hcl 50 Mg/Ml Vial) 25 mg IM Q4H PRN PRN Reason: anxiety/restlessness Last Admin: 04/20/21 16:20 Dose: 25 mg Documented by: ZENON Insulin Glargine (Insulin Glargine,Hum.Rec.Anlog 100 Unit/Ml 10 Ml Vial) 10 unit SUBCUT BID [facility] Last Admin: 04/26/21 09:10 Dose: 10 unit Documented by: MATTHEW Insulin Human Lispro (Insulin Lispro 100 Unit/Ml 3 Ml Vial) 0 unit SUBCUT QIDACHS [facility]; Protocol Last Admin: 04/26/21 09:10 Dose: 6 unit Documented by: MATTHEW Pharmacy Consult (Consult Rx Perform Med Rec) 1 each MISCELLANE ONCE PRN PRN Reason: Consult order Prednisone (Prednisone 2.5 Mg Tablet) 2.5 mg PO DAILY [facility] Stop: 04/28/21 09:01 Sodium Chloride (0.9 % Sodium Chloride Flush 3 Ml Syringe) 3 ml IVFLUSH QSHIFT [facility] Last Admin: 04/26/21 09:10 Dose: 3 ml Documented by: MATTHEW Sodium Chloride (0.9 % Sodium Chloride Flush 3 Ml Syringe) 3 ml IVFLUSH QSHIFT [facility] Last Admin: 04/26/21 09:10 Dose: Not Given Documented by: MATTHEW Non-Admin Reason: Duplicate Order Thiamine HCl (Thiamine Hcl 100 Mg Tablet) 200 mg PO BID [facility] Last Admin: 04/26/21 09:08 Dose: 200 mg Documented by: MATTHEW Vitamin D (Cholecalciferol (Vitamin D3) 25 Mcg Tablet) 50 mcg PO DAILY [facility] Last Admin: 04/26/21 09:09 Dose: 50 mcg Documented by: MATTHEW Labs CBC & Chem 7: 04/26/21 06:40 04/26/21 06:40 Labs: Laboratory Results - last 24 hr 04/25/21 04/25/21 04/25/21 11:20 15:57 18:50 MCV MCH MCHC RDW Plt Count MPV Absolute Nucleated RBC Nucleated RBC % (auto) O2 Saturation ABG pH at Pt Temp ABG pH (Temp Correct) ABG pCO2 at Pt Temp ABG pCO2 (Temp Corrct ABG pO2 at Pt Temp ABG pO2 (Temp Correct ABG HCO3 ABG Base Excess (Actual) Anion Gap Estim Creat Clear Calc Estimated GFR POC Glucose 288 H 235 H Fasting Glucose Calcium COVID-19 ([facility]) Negative COVID-19 Clin Com See Note 04/25/21 04/25/21 04/26/21 19:45 20:56 06:40 MCV 81.6 MCH 24.4 L MCHC 29.9 L RDW 16.0 Plt Count 270 MPV 10.7 Absolute Nucleated RBC 0.000 Nucleated RBC % (auto) 0.0 O2 Saturation 94.0 ABG pH at Pt Temp 7.55 H ABG pH (Temp Correct) 7.55 H ABG pCO2 at Pt Temp 40 ABG pCO2 (Temp Corrct 39 ABG pO2 at Pt Temp 68 L ABG pO2 (Temp Correct 67 L ABG HCO3 35 H ABG Base Excess (Actual) TNP Anion Gap Estim Creat Clear Calc Estimated GFR POC Glucose 120 H Fasting Glucose Calcium COVID-19 ([facility]) COVID-19 Clin Com 04/26/21 04/26/21 06:40 07:47 MCV MCH MCHC RDW Plt Count MPV Absolute Nucleated RBC Nucleated RBC % (auto) O2 Saturation ABG pH at Pt Temp ABG pH (Temp Correct) ABG pCO2 at Pt Temp ABG pCO2 (Temp Corrct ABG pO2 at Pt Temp ABG pO2 (Temp Correct ABG HCO3 ABG Base Excess (Actual) Anion Gap 10 L Estim Creat Clear Calc 92.4 Estimated GFR > 60 POC Glucose 258 H Fasting Glucose 158 H Calcium 8.3 L COVID-19 ([facility]) COVID-19 Clin Com Assessment and Plan (1) Generalized anxiety disorder: Status: Acute (2) Acute respiratory distress syndrome (ARDS) due to COVID-19 virus: Status: Acute Assessment and Plan: 65-year-old moderately obese type 2 diabetic female who was vaccinated but was COVID-19 positive for the pneumonitis/ARDS and acute hypoxemic respiratory failure and encephalopathy as well as acute renal insufficiency.Transferred to floor 04/16/2021; has been hemodynamically stable but essentially nonverbal. TLC/Feeding tube removed. Took spoonfuls of H2o without issue; intermittently taking pills in pudding, o2 requirements have been increasing over last few days acute hypoxic respiratory failure due to covid pneumonia complicated by SUDEEP and metabolic encephalopathy successfully extubated o2 requirements have been increasing last few days now on NRB cxr with bilateral opacities post covid, aspiration pneumonitis, may be element of acute on chronic diastolic chf lasix IV, monitor bmp steroid taper SUDEEP resolved creatinine 2.41 on admission, now back to normal metabolic Encephalopathy; ICU delerium, improving dysphagia calorie count - patient not taking adequate calories i will recommend Gtube, however, family likely feels patient's intake will improve at home and will not want Gtube even if no significant intake. DMII insulin, monitor poc hypokalemia now 3.4, monitor dvt prophylaxis - lovenox Quality Stroke Does the patient have a stroke diagnosis?: No VTE Prior VTE?: No VTE Risk Level:: Medical - moderate - high VTE Device Contraindication: Treatment Not Indicated VTE Drug Contraindication: N/A - Med Ordered
[2021-04-26 11:42] LABS: Glucose, Whole Blood 195 mg/dL (60-115)
--- NOTE | 2021-04-26 12:47 | PC.NURSE ---
Pt's AM meds were crushed in applesauce, she spit it all out. Had 5 bites of scrambled eggs and 1/2 piece of toast with jelly for breakfast.
--- NOTE | 2021-04-26 12:48 | MHC.CLN ---
RE: CONSULT FOR CALORIE COUNT DAY THREE CALORIE COUNT DISCONTINUED FAMILY DISCUSSED G TUBE WITH MD AND AGREE NO GT WILL BE PLACED AT THIS TIME PT WITH MAXIMUM NUTRITION SUPPORT IN PLACE CONTINUE TO MONITOR PO INTAKE CLOSELY
[2021-04-26] MEDS: Furosemide 40 MG/4 ML VIAL IVPUSH (12:55)
[2021-04-26] MEDS: Acyclovir 5 % Oint 15 GM TUBE TOPICAL ×3 (13:00→22:08)
[2021-04-26 16:23] LABS: Glucose, Whole Blood 114 mg/dL (60-115)
[2021-04-26 20:15] LABS: Glucose, Whole Blood 159 mg/dL (60-115)
[2021-04-27] VITALS (10 sets, daily range): BP systolic 103–141; BP diastolic 51–65; PULSE 84–103; RESP 15–40; TEMP 36.1–36.6; O2SAT 83–99; BMI 31.4
[2021-04-27 07:04] LABS: Hematocrit 27.6 % (37.0-47.0); Hemoglobin 8.8 g/dl (12.0-16.0); Mean Corpuscular HGB Conc 31.9 g/dl (31.0-35.0); Mean Corpuscular Hemoglobin 25.4 pg (27.0-33.0); Mean Corpuscular Volume 79.5 fL (80.0-98.0); Mean Platelet Volume 10.2 fL (9.4-12.3); Platelet Count 240 X10*3/uL (160-400); Red Blood Count 3.47 X10*6/uL (4.20-5.50); Red Cell Distribution Width 15.8 % (11.0-16.0); White Blood Count 9.2 X10*3/uL (4.8-10.8)
[2021-04-27 07:27] LABS: B Type Natriuretic Peptide 85 pg/mL (<100)
[2021-04-27 07:40] LABS: Glucose, Whole Blood 92 mg/dL (60-115)
[2021-04-27 08:13] LABS: Anion Gap 13 (12-20); Blood Urea Nitrogen 16 mg/dL (9-16); Calcium 8.2 mg/dL (8.4-10.2); Carbon Dioxide 33 mmol/L (22-29); Chloride 96 mmol/L (96-108); Estimated Glomerular Filt Rate > 60; Glucose Fasting 88 mg/dL (60-99); Magnesium 1.7 mg/dL (1.6-2.6); Potassium 2.8 mmol/L (3.3-5.1); Sodium 139 mmol/L (135-145)
[2021-04-27] MEDS: ARIPiprazole 2 MG TABLET PO (09:24)
[2021-04-27] MEDS: Famotidine 20 MG TABLET PO (09:24)
[2021-04-27] MEDS: Thiamine HCL 100 MG TABLET 200 MG PO ×2 (09:25→21:23)
--- NOTE | 2021-04-27 09:27 | HO.PM.IMPN ---
Subjective Subjective Date of Service: 04/27/21 Interval History: cc: sob interval history: no complaints today Cardiovascular Cardiovascular: Reports no additional cardiovascular complaints Respiratory Respiratory: Reports no additional respiratory complaints Physical Exam Vital Signs: Vital Signs: Last Vital Signs Temp 97.8 F 04/27/21 07:22 Pulse 84 04/27/21 07:22 Resp 18 04/27/21 07:22 BP 103/62 04/27/21 07:22 Pulse Ox 94 04/27/21 07:22 Body Mass Index 31.4 General: Alert, occasionally weepy/anxious, otherwise no acute distress Resp:? Crackles bilateral, no accessory muscles used CVS: S1,S2,RRR GI: soft, non tender, non distended Neuro:? motor grossly intact, alert Psych:? impaired insight? Objective Data Active Medications Acetaminophen (Acetaminophen 325 Mg Tablet) 650 mg PO Q6H PRN PRN Reason: Fever Last Admin: 04/19/21 20:33 Dose: 650 mg Documented by: EMILY Acyclovir (Acyclovir 5 % Oint 15 Gm Tube) 1 gm TOPICAL TID [facility] Last Admin: 04/26/21 22:08 Dose: 1 gm Documented by: QUINN Aripiprazole (Aripiprazole 2 Mg Tablet) 2 mg PO DAILY [facility] Last Admin: 04/26/21 09:08 Dose: 2 mg Documented by: MATTHEW Aspirin (Aspirin 325 Mg Tablet) 325 mg PO DAILY [facility] Last Admin: 04/26/21 09:09 Dose: 325 mg Documented by: MATTHEW Atorvastatin Calcium (Atorvastatin Calcium 40 Mg Tablet) 40 mg PO DAILY@0900 [facility] Last Admin: 04/26/21 09:08 Dose: 40 mg Documented by: MATTHEW Carvedilol (Carvedilol 12.5 Mg Tablet) 25 mg PO BID [facility]; Protocol Last Admin: 04/26/21 22:07 Dose: 25 mg Documented by: QUINN Enoxaparin Sodium (Enoxaparin Sodium 40 Mg/0.4 Ml Syringe) 40 mg SUBCUT DAILY [facility] Last Admin: 04/26/21 09:13 Dose: 40 mg Documented by: MATTHEW Famotidine (Famotidine 20 Mg Tablet) 20 mg PO DAILY [facility] Last Admin: 04/26/21 09:07 Dose: 20 mg Documented by: MATTHEW Hydroxyzine HCl (Hydroxyzine Hcl 50 Mg/Ml Vial) 25 mg IM Q4H PRN PRN Reason: anxiety/restlessness Last Admin: 04/20/21 16:20 Dose: 25 mg Documented by: ZENON Insulin Glargine (Insulin Glargine,Hum.Rec.Anlog 100 Unit/Ml 10 Ml Vial) 10 unit SUBCUT BID [facility] Last Admin: 04/26/21 22:04 Dose: 10 unit Documented by: QUINN Insulin Human Lispro (Insulin Lispro 100 Unit/Ml 3 Ml Vial) 0 unit SUBCUT QIDACHS [facility]; Protocol Last Admin: 04/27/21 08:41 Dose: Not Given Documented by: MATTHEW Non-Admin Reason: No Insulin Coverage Pharmacy Consult (Consult Rx Perform Med Rec) 1 each MISCELLANE ONCE PRN PRN Reason: Consult order Prednisone (Prednisone 2.5 Mg Tablet) 2.5 mg PO DAILY [facility] Stop: 04/28/21 09:01 Sodium Chloride (0.9 % Sodium Chloride Flush 3 Ml Syringe) 3 ml IVFLUSH [facility] Last Admin: 04/26/21 22:05 Dose: 3 ml Documented by: QUINN Sodium Chloride (0.9 % Sodium Chloride Flush 3 Ml Syringe) 3 ml IVFLUSH [facility] Last Admin: 04/26/21 22:23 Dose: Not Given Documented by: QUINN Non-Admin Reason: Duplicate Order Thiamine HCl (Thiamine Hcl 100 Mg Tablet) 200 mg PO BID [facility] Last Admin: 04/26/21 22:04 Dose: 200 mg Documented by: QUINN Vitamin D (Cholecalciferol (Vitamin D3) 25 Mcg Tablet) 50 mcg PO DAILY [facility] Last Admin: 04/26/21 09:09 Dose: 50 mcg Documented by: MATTHEW Labs CBC & Chem 7: 04/27/21 06:35 04/27/21 06:35 Labs: Laboratory Results - last 24 hr 04/26/21 04/26/21 04/26/21 11:32 16:00 20:10 MCV MCH MCHC RDW Plt Count MPV Absolute Nucleated RBC Nucleated RBC % (auto) Anion Gap Estim Creat Clear Calc Estimated GFR POC Glucose 195 H 114 159 H Fasting Glucose Calcium Magnesium B-Natriuretic Peptide 04/27/21 04/27/2121 06:35 06:35 06:35 MCV 79.5 L MCH 25.4 L MCHC 31.9 RDW 15.8 Plt Count 240 MPV 10.2 Absolute Nucleated RBC 0.000 Nucleated RBC % (auto) 0.0 Anion Gap 13 Estim Creat Clear Calc 105.0 Estimated GFR > 60 POC Glucose Fasting Glucose 88 Calcium 8.2 L Magnesium 1.7 B-Natriuretic Peptide 85 04/27/21 07:22 MCV MCH MCHC RDW Plt Count MPV Absolute Nucleated RBC Nucleated RBC % (auto) Anion Gap Estim Creat Clear Calc Estimated GFR POC Glucose 92 Fasting Glucose Calcium Magnesium B-Natriuretic Peptide Assessment and Plan (1) Generalized anxiety disorder: Status: Acute (2) Acute respiratory distress syndrome (ARDS) due to COVID-19 virus: Status: Acute Assessment and Plan: 65-year-old moderately obese type 2 diabetic female who was vaccinated but was COVID-19 positive for the pneumonitis/ARDS and acute hypoxemic respiratory failure and encephalopathy as well as acute renal insufficiency.Transferred to floor 04/16/2021; has been hemodynamically stable but essentially nonverbal. TLC/Feeding tube removed. Took spoonfuls of H2o without issue; intermittently taking pills in pudding, o2 requirements have been increasing over last few days acute hypoxic respiratory failure due to covid pneumonia complicated by SUDEEP and metabolic encephalopathy successfully extubated o2 requirements have been increasing last few days, desaturations appear to be episodic though now on NRB but saturating 99%, wean as tolerated cxr with bilateral opacities post covid, aspiration pneumonitis, received 2 doses of iv lasix for any acute on chronic diastolic chf, BNP unremarkable, will repeat CXR to see if any significant change after diuresis steroid taper SUDEEP resolved creatinine 2.41 on admission, now back to normal metabolic Encephalopathy; ICU delerium, improving dysphagia calorie count - patient not taking adequate calories i will recommend Gtube, however, family likely feels patient's intake will improve at home and will not want Gtube even if no significant intake. DMII insulin, monitor poc hypokalemia, hypomagnesemia replace and monitor dvt prophylaxis - lovenox Quality Stroke Does the patient have a stroke diagnosis?: No VTE Prior VTE?: No VTE Risk Level:: Medical - moderate - high VTE Device Contraindication: Treatment Not Indicated VTE Drug Contraindication: N/A - Med Ordered
[2021-04-27] MEDS: Aspirin 325 MG TABLET PO (09:28)
[2021-04-27] MEDS: carvediloL 12.5 MG TABLET 25 MG PO ×2 (09:30→21:22)
[2021-04-27] MEDS: Atorvastatin Calcium 40 MG TABLET PO (09:33)
[2021-04-27] MEDS: predniSONE 2.5 MG TABLET PO (09:33)
[2021-04-27] MEDS: Cholecalciferol (Vitamin D3) 25 MCG TABLET 50 MCG PO (09:33)
[2021-04-27] MEDS: Insulin Glargine,Hum.rec.anlog 100 UNIT/ML 10 ML VIAL 10 UNIT SUBCUT ×2 (09:34→21:25)
[2021-04-27] MEDS: Enoxaparin Sodium 40 MG/0.4 ML SYRINGE SUBCUT (09:35)
[2021-04-27] MEDS: 0.9 % Sodium Chloride Flush 3 ML SYRINGE IVFLUSH ×2 (09:35→21:30)
[2021-04-27] MEDS: Acyclovir 5 % Oint 15 GM TUBE TOPICAL ×3 (10:43→21:31)
[2021-04-27] MEDS: Magnesium Sulfate/H2O 2 GM/50 ML PIGGYBACK IV (10:44)
[2021-04-27 11:20] LABS: Glucose, Whole Blood 165 mg/dL (60-115)
[2021-04-27] MEDS: Insulin Lispro 100 UNIT/ML 3 ML VIAL SUBCUT ×3 (12:57→21:25)
[2021-04-27] MEDS: Potassium Chloride/H20 10 MEQ/100 ML PIGGYBACK 100 MEQ IV ×4 (12:57→16:57)
[2021-04-27 16:12] LABS: Glucose, Whole Blood 173 mg/dL (60-115)
[2021-04-27 21:08] LABS: Glucose, Whole Blood 157 mg/dL (60-115)
[2021-04-27] MEDS: hydrOXYzine HCL 50 MG/ML VIAL 25 MG IM (21:24)
[2021-04-27 22:31] LABS: ABG Base Excess 12.5 mmol/L; ABG HCO3 36 mmol/L (22-26); ABG pCO2 41 mmHg (32-45); ABG pCO2 TC 40 mmHg (32-45); ABG pH 7.54 (7.35-7.45); ABG pH TC 7.56 (7.35-7.45); ABG pO2 53 mmHg (83-108); ABG pO2 TC 50 (83-108)
[2021-04-28] VITALS (15 sets, daily range): BP systolic 118–141; BP diastolic 62–73; PULSE 79–105; RESP 16–33; TEMP 35.9–37.2; O2SAT 89–99; BMI 30.4
[2021-04-28] MEDS: 0.9 % Sodium Chloride Flush 3 ML SYRINGE IVFLUSH ×7 (00:34→20:28)
[2021-04-28 04:16] LABS: ABG Refer to POC result
[2021-04-28 07:31] LABS: Glucose, Whole Blood 91 mg/dL (60-115)
[2021-04-28 07:49] LABS: Anion Gap 11 (12-20); Blood Urea Nitrogen 14 mg/dL (9-16); Calcium 8.2 mg/dL (8.4-10.2); Carbon Dioxide 34 mmol/L (22-29); Chloride 98 mmol/L (96-108); Creatinine Clr Calc Pharmacy 101.1; Estimated Glomerular Filt Rate > 60; Glucose Fasting 81 mg/dL (60-99); Potassium 3.5 mmol/L (3.3-5.1); Sodium 139 mmol/L (135-145)
[2021-04-28] MEDS: Insulin Glargine,Hum.rec.anlog 100 UNIT/ML 10 ML VIAL 10 UNIT SUBCUT (08:50)
[2021-04-28] MEDS: Enoxaparin Sodium 40 MG/0.4 ML SYRINGE SUBCUT (08:50)
[2021-04-28] MEDS: Famotidine 20 MG TABLET PO (08:51)
[2021-04-28] MEDS: Thiamine HCL 100 MG TABLET 200 MG PO ×2 (08:51→20:26)
[2021-04-28] MEDS: predniSONE 2.5 MG TABLET PO (08:51)
[2021-04-28] MEDS: Cholecalciferol (Vitamin D3) 25 MCG TABLET 50 MCG PO (08:51)
[2021-04-28] MEDS: Aspirin 325 MG TABLET PO (08:51)
[2021-04-28] MEDS: carvediloL 12.5 MG TABLET 25 MG PO ×2 (08:52→20:27)
[2021-04-28] MEDS: ARIPiprazole 2 MG TABLET PO (08:52)
[2021-04-28] MEDS: Atorvastatin Calcium 40 MG TABLET PO (08:52)
[2021-04-28] MEDS: Acyclovir 5 % Oint 15 GM TUBE TOPICAL ×3 (08:52→20:36)
--- NOTE | 2021-04-28 09:34 | MHC.CM.PN ---
dc plan is to str when medically stable. refs have been made and snf's are following patient. cm to cont. to follow.
--- NOTE | 2021-04-28 10:07 | HO.PM.IMPN ---
Subjective Subjective Date of Service: 04/28/21 Interval History: cc: sob interval history: no complaints today Cardiovascular Cardiovascular: Reports no additional cardiovascular complaints Gastrointestinal Gastrointestinal: Reports no additional gastrointestinal complaints Physical Exam Vital Signs: Vital Signs: Last Vital Signs Temp 96.8 F 04/28/21 07:52 Pulse 84 04/28/21 10:02 Resp 30 H 04/28/21 08:03 BP 141/73 H 04/28/21 10:02 Pulse Ox 98 04/28/21 07:52 Body Mass Index 30.4 General: Alert, occasionally weepy/anxious, otherwise no acute distress Resp:? Crackles bilateral, no accessory muscles used CVS: S1,S2,RRR GI: soft, non tender, non distended Neuro:? motor grossly intact, alert Psych:? impaired insight? Objective Data Active Medications Acetaminophen (Acetaminophen 325 Mg Tablet) 650 mg PO Q6H PRN PRN Reason: Fever Last Admin: 04/19/21 20:33 Dose: 650 mg Documented by: EMILY Acyclovir (Acyclovir 5 % Oint 15 Gm Tube) 1 gm TOPICAL TID [facility] Last Admin: 04/28/21 08:52 Dose: 1 gm Documented by: FADI Aripiprazole (Aripiprazole 2 Mg Tablet) 2 mg PO DAILY [facility] Last Admin: 04/28/21 08:52 Dose: 2 mg Documented by: FADI Aspirin (Aspirin 325 Mg Tablet) 325 mg PO DAILY [facility] Last Admin: 04/28/21 08:51 Dose: 325 mg Documented by: FADI Atorvastatin Calcium (Atorvastatin Calcium 40 Mg Tablet) 40 mg PO DAILY@0900 [facility] Last Admin: 04/28/21 08:52 Dose: 40 mg Documented by: FADI Carvedilol (Carvedilol 12.5 Mg Tablet) 25 mg PO BID [facility]; Protocol Last Admin: 04/28/21 08:52 Dose: 25 mg Documented by: FADI Enoxaparin Sodium (Enoxaparin Sodium 40 Mg/0.4 Ml Syringe) 40 mg SUBCUT DAILY [facility] Last Admin: 04/28/21 08:50 Dose: 40 mg Documented by: FADI Famotidine (Famotidine 20 Mg Tablet) 20 mg PO DAILY [facility] Last Admin: 04/28/21 08:51 Dose: 20 mg Documented by: FADI Hydroxyzine HCl (Hydroxyzine Hcl 50 Mg/Ml Vial) 25 mg IM Q4H PRN PRN Reason: anxiety/restlessness Last Admin: 04/27/21 21:24 Dose: 25 mg Documented by: KATLYN Insulin Glargine (Insulin Glargine,Hum.Rec.Anlog 100 Unit/Ml 10 Ml Vial) 10 unit SUBCUT BID [facility] Last Admin: 04/28/21 08:50 Dose: 10 unit Documented by: FADI Insulin Human Lispro (Insulin Lispro 100 Unit/Ml 3 Ml Vial) 0 unit SUBCUT QIDACHS [facility]; Protocol Last Admin: 04/28/21 07:32 Dose: Not Given Documented by: FADI Non-Admin Reason: No Insulin Coverage Comments: poc 91 Pharmacy Consult (Consult Rx Perform Med Rec) 1 each MISCELLANE ONCE PRN PRN Reason: Consult order Sodium Chloride (0.9 % Sodium Chloride Flush 3 Ml Syringe) 3 ml IVFLUSH [facility] Last Admin: 04/28/21 08:53 Dose: 3 ml Documented by: FADI Sodium Chloride (0.9 % Sodium Chloride Flush 3 Ml Syringe) 3 ml IVFLUSH [facility] Last Admin: 04/28/21 08:53 Dose: 3 ml Documented by: FADI Thiamine HCl (Thiamine Hcl 100 Mg Tablet) 200 mg PO BID [facility] Last Admin: 04/28/21 08:51 Dose: 200 mg Documented by: FADI Vitamin D (Cholecalciferol (Vitamin D3) 25 Mcg Tablet) 50 mcg PO DAILY [facility] Last Admin: 04/28/21 08:51 Dose: 50 mcg Documented by: FADI Labs CBC & Chem 7: 04/27/21 06:35 04/28/21 06:50 Labs: Laboratory Results - last 24 hr 04/27/21 04/27/21 04/27/21 11:05 16:05 20:51 O2 Saturation ABG pH at Pt Temp ABG pH (Temp Correct) ABG pCO2 at Pt Temp ABG pCO2 (Temp Corrct ABG pO2 at Pt Temp ABG pO2 (Temp Correct ABG HCO3 ABG Base Excess (Actual) Anion Gap Estim Creat Clear Calc Estimated GFR POC Glucose 165 H 173 H 157 H Fasting Glucose Calcium Magnesium 04/27/21 04/28/2104/28/21 22:25 06:50 07:18 O2 Saturation 82.0 ABG pH at Pt Temp 7.54 H ABG pH (Temp Correct) 7.56 H ABG pCO2 at Pt Temp 41 ABG pCO2 (Temp Corrct 40 ABG pO2 at Pt Temp 53 L ABG pO2 (Temp Correct 50 L* ABG HCO3 36 H ABG Base Excess (Actual) 12.5 Anion Gap 11 L Estim Creat Clear Calc 101.1 Estimated GFR > 60 POC Glucose 91 Fasting Glucose 81 Calcium 8.2 L Magnesium 2.0 Assessment and Plan (1) Generalized anxiety disorder: Status: Acute (2) Acute respiratory distress syndrome (ARDS) due to COVID-19 virus: Status: Acute Assessment and Plan: 65-year-old moderately obese type 2 diabetic female who was vaccinated but was COVID-19 positive for the pneumonitis/ARDS and acute hypoxemic respiratory failure and encephalopathy as well as acute renal insufficiency.Transferred to floor 04/16/2021; has been hemodynamically stable but essentially nonverbal. TLC/Feeding tube removed. Took spoonfuls of H2o without issue; intermittently taking pills in pudding, o2 requirements have been increasing over last few days acute hypoxic respiratory failure due to covid pneumonia complicated by SUDEEP and metabolic encephalopathy successfully extubated o2 requirements have been increasing last few days, desaturations appear to be episodic though was started on high flow with NRB yesterday post covid, aspiration pneumonitis, received 2 doses of iv lasix for any acute on chronic diastolic chf, BNP unremarkable, repeated CXR showed no significant change after diuresis steroid taper SUDEEP resolved creatinine 2.41 on admission, now back to normal metabolic Encephalopathy; ICU delerium, improving dysphagia calorie count - patient not taking adequate calories recommending Gtube, however, family likely feels patient's intake will improve at home and will not want Gtube even if no significant intake. DMII insulin, monitor poc hypokalemia, hypomagnesemia replace and monitor dvt prophylaxis - lovenox Quality Stroke Does the patient have a stroke diagnosis?: No VTE Prior VTE?: No VTE Risk Level:: Medical - moderate - high VTE Device Contraindication: Treatment Not Indicated VTE Drug Contraindication: N/A - Med Ordered
[2021-04-28 11:26] LABS: Glucose, Whole Blood 151 mg/dL (60-115)
--- NOTE | 2021-04-28 12:13 | MHC.SLORD ---
Speech Language Pathology Order Status: Patient is on CHOPPED/ADVANCED (NDD3) solids and THIN liquids, CRUSHED pills in PUREE. Per RN patient tolerated breakfast without difficulties, but when given crushed pills, she spit them out. Patient had chest x-ray yesterday which showed, no change in low lung volumes and bilateral multilobar airspace disease from most recent exam 04/25. Per chart review, note decreased PO intake and increasing 02 requirements (NRB / venturi mask). ORDER PROCESSOR will continue to follow to monitor tolerance of PO.
--- NOTE | 2021-04-28 12:25 | PC.NURSE ---
Addendum entered by Molly Waldrop RN 04/28/21 17:17: CURRENT HIGH FLOW 50L/85%, NRB APPLIED FOR RECOVERY WHEN PATIENT REMOVES O2 FROM NOSE. TELESITTER REMAINS BEDSIDE FOR SAFETY. PATIENT SPIT OUT MOST OF AM CRUSHED MEDICATIONS. MD AWARE. ENTRY LEVEL FINANCIAL ANALYST USED FOR EDUCATION ON IMPORTANCE OF MEDICATIONS. BM X 1 - SMALL TODAY. FAMILY UPDATED BY THIS RN AND MD TODAY. Original Note: PER MD: CONTINUE TO WEAN O2 FOR GOAL OF 90-94%.
--- NOTE | 2021-04-28 13:52 | MHC.CLN ---
F/U PT WITH VARIABLE PO DIET RX: CHOPPED-APPROPRIATE PT RECEIVING ENSURE BID TO INCREASE KCALS CURRENT WT 155# CONTINUE TO MONITOR AND ENCOURAGE PO INTAKE
[2021-04-28 16:25] LABS: Glucose, Whole Blood 170 mg/dL (60-115)
[2021-04-28] MEDS: Insulin Lispro 100 UNIT/ML 3 ML VIAL SUBCUT (16:35)
[2021-04-28 20:16] LABS: Glucose, Whole Blood 131 mg/dL (60-115)
[2021-04-28] MEDS: hydrOXYzine HCL 50 MG/ML VIAL 25 MG IM (20:27)
[2021-04-29] VITALS (13 sets, daily range): BP systolic 98–148; BP diastolic 49–78; PULSE 91–101; RESP 18–26; TEMP 36.4–36.9; O2SAT 91–97; BMI 29.7
[2021-04-29 07:04] LABS: Hematocrit 28.6 % (37.0-47.0); Hemoglobin 8.8 g/dl (12.0-16.0); Mean Corpuscular HGB Conc 30.8 g/dl (31.0-35.0); Mean Corpuscular Hemoglobin 25.7 pg (27.0-33.0); Mean Corpuscular Volume 83.4 fL (80.0-98.0); Platelet Count 267 X10*3/uL (160-400); Red Blood Count 3.43 X10*6/uL (4.20-5.50); White Blood Count 7.5 X10*3/uL (4.8-10.8)
[2021-04-29 07:08] LABS: Anion Gap 12 (12-20); Blood Urea Nitrogen 13 mg/dL (9-16); Carbon Dioxide 31 mmol/L (22-29); Chloride 98 mmol/L (96-108); Estimated Glomerular Filt Rate > 60; Glucose Fasting 89 mg/dL (60-99); Potassium 3.4 mmol/L (3.3-5.1); Sodium 138 mmol/L (135-145)
[2021-04-29 07:37] LABS: Glucose, Whole Blood 95 mg/dL (60-115)
[2021-04-29] MEDS: carvediloL 12.5 MG TABLET 25 MG PO ×2 (09:46→21:42)
[2021-04-29] MEDS: Cholecalciferol (Vitamin D3) 25 MCG TABLET 50 MCG PO (09:46)
[2021-04-29] MEDS: Aspirin 325 MG TABLET PO (09:46)
[2021-04-29] MEDS: Atorvastatin Calcium 40 MG TABLET PO (09:46)
[2021-04-29] MEDS: Enoxaparin Sodium 40 MG/0.4 ML SYRINGE SUBCUT (09:46)
[2021-04-29] MEDS: ARIPiprazole 2 MG TABLET PO (09:46)
[2021-04-29] MEDS: Famotidine 20 MG TABLET PO (09:46)
[2021-04-29] MEDS: Thiamine HCL 100 MG TABLET 200 MG PO ×2 (09:47→21:42)
[2021-04-29] MEDS: 0.9 % Sodium Chloride Flush 3 ML SYRINGE IVFLUSH ×4 (09:48→21:43)
[2021-04-29] MEDS: Acyclovir 5 % Oint 15 GM TUBE TOPICAL (10:06)
[2021-04-29 11:33] LABS: Glucose, Whole Blood 169 mg/dL (60-115)
--- NOTE | 2021-04-29 11:55 | P.PNIM_ITS ---
Subjective Subjective Date of Service: 04/29/21 Interval History: cc: sob interval history: no complaints this morning, at about 11am had code blue , patient quickly recovered, now alert, but not participating in conversation Review of Systems Review of Systems: Yes Unobtainable due to mental status Physical Exam Vital Signs: Vital Signs: Last Vital Signs Temp 97.6 F 04/29/21 11:40 Pulse 101 H 04/29/21 11:40 Resp 24 H 04/29/21 11:40 BP 148/66 H 04/29/21 11:40 Pulse Ox 97 04/29/21 11:40 Body Mass Index 29.7 General: Alert, not talking now Resp:? Crackles bilateral, no accessory muscles used CVS: S1,S2,RRR GI: soft, non tender, non distended Neuro:? motor grossly intact, alert Psych:? impaired insight? Objective Data Active Medications Acetaminophen (Acetaminophen 325 Mg Tablet) 650 mg PO Q6H PRN PRN Reason: Fever Last Admin: 04/19/21 20:33 Dose: 650 mg Documented by: EMILY Acyclovir (Acyclovir 5 % Oint 15 Gm Tube) 1 gm TOPICAL TID [facility] Last Admin: 04/29/21 10:06 Dose: 1 gm Documented by: CHRIS Aripiprazole (Aripiprazole 2 Mg Tablet) 2 mg PO DAILY [facility] Last Admin: 04/29/21 09:46 Dose: 2 mg Documented by: CHRIS Aspirin (Aspirin 325 Mg Tablet) 325 mg PO DAILY [facility] Last Admin: 04/29/21 09:46 Dose: 325 mg Documented by: CHRIS Atorvastatin Calcium (Atorvastatin Calcium 40 Mg Tablet) 40 mg PO DAILY@0900 [facility] Last Admin: 04/29/21 09:46 Dose: 40 mg Documented by: CHRIS Carvedilol (Carvedilol 12.5 Mg Tablet) 25 mg PO BID [facility]; Protocol Last Admin: 04/29/21 09:46 Dose: 25 mg Documented by: CHRIS Enoxaparin Sodium (Enoxaparin Sodium 40 Mg/0.4 Ml Syringe) 40 mg SUBCUT DAILY [facility] Last Admin: 04/29/21 09:46 Dose: 40 mg Documented by: CHRIS Famotidine (Famotidine 20 Mg Tablet) 20 mg PO DAILY [facility] Last Admin: 04/29/21 09:46 Dose: 20 mg Documented by: CHRIS Hydroxyzine HCl (Hydroxyzine Hcl 50 Mg/Ml Vial) 25 mg IM Q4H PRN PRN Reason: anxiety/restlessness Last Admin: 04/28/21 20:27 Dose: 25 mg Documented by: KATLYN Insulin Glargine (Insulin Glargine,Hum.Rec.Anlog 100 Unit/Ml 10 Ml Vial) 10 unit SUBCUT BID [facility] Last Admin: 04/29/21 10:16 Dose: Not Given Documented by: CHRIS Non-Admin Reason: No Insulin Coverage Insulin Human Lispro (Insulin Lispro 100 Unit/Ml 3 Ml Vial) 0 unit SUBCUT [facility]; Protocol Last Admin: 04/29/21 07:42 Dose: Not Given Documented by: CHRIS Non-Admin Reason: No Insulin Coverage Pharmacy Consult (Consult Rx Perform Med Rec) 1 each MISCELLANE ONCE PRN PRN Reason: Consult order Sodium Chloride (0.9 % Sodium Chloride Flush 3 Ml Syringe) 3 ml IVFLUSH [facility] Last Admin: 04/29/21 09:07 Dose: Not Given Documented by: CHRIS Non-Admin Reason: Duplicate Order Sodium Chloride (0.9 % Sodium Chloride Flush 3 Ml Syringe) 3 ml IVFLUSH [facility] Last Admin: 04/29/21 09:48 Dose: 3 ml Documented by: CHRIS Thiamine HCl (Thiamine Hcl 100 Mg Tablet) 200 mg PO BID [facility] Last Admin: 04/29/21 09:47 Dose: 200 mg Documented by: CHRIS Vitamin D (Cholecalciferol (Vitamin D3) 25 Mcg Tablet) 50 mcg PO DAILY [facility] Last Admin: 04/29/21 09:46 Dose: 50 mcg Documented by: CHRIS Labs CBC & Chem 7: 04/29/21 06:23 04/29/21 06:23 Labs: Laboratory Results - last 24 hr 04/28/21 04/28/21 04/29/21 16:18 20:08 06:23 MCV 83.4 MCH 25.7 L MCHC 30.8 L RDW 16.0 Plt Count 267 MPV 11.0 Absolute Nucleated RBC 0.000 Nucleated RBC % (auto) 0.0 Anion Gap Estim Creat Clear Calc Estimated GFR POC Glucose 170 H 131 H Fasting Glucose Calcium 04/29/21 04/29/21 04/29/21 06:23 07:27 11:13 MCV MCH MCHC RDW Plt Count MPV Absolute Nucleated RBC Nucleated RBC % (auto) Anion Gap 12 Estim Creat Clear Calc 102.0 Estimated GFR > 60 POC Glucose 95 169 H Fasting Glucose 89 Calcium 8.0 L Assessment and Plan (1) Generalized anxiety disorder: Status: Acute (2) Acute respiratory distress syndrome (ARDS) due to COVID-19 virus: Status: Acute Assessment and Plan: 65-year-old moderately obese type 2 diabetic female who was vaccinated but was COVID-19 positive for the pneumonitis/ARDS and acute hypoxemic respiratory failure and encephalopathy as well as acute renal insufficiency.Transferred to floor 04/16/2021; has been hemodynamically stable but essentially nonverbal. TLC/Feeding tube removed. Took spoonfuls of H2o without issue; intermittently taking pills in pudding, o2 requirements have been increasing over last few days. today at about 11am patient had code blue but recovered quickly asystole brief, due to hypoxia, due to taking off mask in background of issues below now recovered, encourage mask wearing, will transfer out of covid unit to allow family to see. acute hypoxic respiratory failure due to covid pneumonia complicated by SUDEEP and metabolic encephalopathy successfully extubated o2 requirements have been increasing last few days was started on high flow with NRB 04/27 post covid, aspiration pneumonitis, received 2 doses of iv lasix for any acute on chronic diastolic chf, BNP unremarkable, repeated CXR showed no significant change after diuresis steroid taper SUDEEP resolved creatinine 2.41 on admission, now back to normal metabolic Encephalopathy; now worsened after brief asystole from hypoxia, mnonitor dysphagia calorie count - patient not taking adequate calories recommending Gtube, however, family likely feels patient's intake will improve at home and will not want Gtube even if no significant intake. DMII insulin, monitor poc hypokalemia, hypomagnesemia replace and monitor dvt prophylaxis - lovenox Quality Stroke Does the patient have a stroke diagnosis?: No VTE Prior VTE?: No VTE Risk Level:: Medical - moderate - high VTE Device Contraindication: Treatment Not Indicated VTE Drug Contraindication: N/A - Med Ordered
--- NOTE | 2021-04-29 12:04 | MHC.SLORD ---
Speech Language Pathology Order Status: Per chart review, patient spit out medications and has variable PO intake. FUNERAL ARRANGER attempted to see patient approximately 11:20am during which time patient was a code blue. Per MD note, no complaints this morning, at about 11am had code blue, patient quickly recovered, now alert, but not participating in conversation. FUNERAL ARRANGER will continue to follow this patient. Review of Systems
[2021-04-29] MEDS: Insulin Lispro 100 UNIT/ML 3 ML VIAL SUBCUT ×2 (12:34→21:52)
--- NOTE | 2021-04-29 12:38 | PC.NURSE ---
At 11:20 I was alerted to patient's room because of decreased 02 Saturation on the monitor. Patient was in bed with no oxygen on. O2 HF and NRB was placed back on bu patient had no pulse and was asystole for few second. Chest compression were started and RR called. After few chest compression pulse was recovered and patient 02 sat started to come back to normal. Dr Bolton was updated on patient's condition, VSS back to normal and sitter was placed in the room to make sure patient is not remvoving O2 masks.
[2021-04-29 16:07] LABS: Glucose, Whole Blood 132 mg/dL (60-115)
[2021-04-29 19:53] LABS: Glucose, Whole Blood 252 mg/dL (60-115)
[2021-04-30] VITALS (15 sets, daily range): BP systolic 80–179; BP diastolic 48–79; PULSE 66–109; RESP 17–26; TEMP 36.2–37.1; O2SAT 91–99
[2021-04-30 07:14] LABS: Hematocrit 27.6 % (37.0-47.0); Hemoglobin 8.2 g/dl (12.0-16.0); Mean Corpuscular HGB Conc 29.7 g/dl (31.0-35.0); Mean Corpuscular Hemoglobin 24.6 pg (27.0-33.0); Mean Corpuscular Volume 82.9 fL (80.0-98.0); NRBC Pct Auto 0.2 /100WBC (0.0-0.2); Platelet Count 313 X10*3/uL (160-400); Red Blood Count 3.33 X10*6/uL (4.20-5.50); White Blood Count 8.9 X10*3/uL (4.8-10.8)
[2021-04-30 07:20] LABS: Glucose, Whole Blood 178 mg/dL (60-115)
[2021-04-30 07:36] LABS: Anion Gap 14 (12-20); Blood Urea Nitrogen 15 mg/dL (9-16); Calcium 8.3 mg/dL (8.4-10.2); Carbon Dioxide 30 mmol/L (22-29); Chloride 99 mmol/L (96-108); Creatinine Clr Calc Pharmacy 95.9; Estimated Glomerular Filt Rate > 60; Glucose Fasting 194 mg/dL (60-99); Potassium 3.2 mmol/L (3.3-5.1); Sodium 140 mmol/L (135-145)
[2021-04-30] MEDS: Insulin Lispro 100 UNIT/ML 3 ML VIAL SUBCUT ×3 (08:00→16:47)
[2021-04-30] MEDS: 0.9 % Sodium Chloride Flush 3 ML SYRINGE IVFLUSH ×6 (08:00→20:56)
[2021-04-30] MEDS: carvediloL 12.5 MG TABLET 25 MG PO (08:01)
[2021-04-30] MEDS: Acetaminophen 325 MG TABLET 650 MG PO (08:01)
[2021-04-30] MEDS: Enoxaparin Sodium 40 MG/0.4 ML SYRINGE SUBCUT (08:01)
[2021-04-30] MEDS: Aspirin 325 MG TABLET PO (08:01)
[2021-04-30] MEDS: Thiamine HCL 100 MG TABLET 200 MG PO (08:01)
[2021-04-30] MEDS: Cholecalciferol (Vitamin D3) 25 MCG TABLET 50 MCG PO (08:01)
[2021-04-30] MEDS: ARIPiprazole 2 MG TABLET PO (08:02)
[2021-04-30] MEDS: Atorvastatin Calcium 40 MG TABLET PO (08:02)
[2021-04-30] MEDS: Famotidine 20 MG TABLET PO (08:02)
[2021-04-30 11:17] LABS: Glucose, Whole Blood 266 mg/dL (60-115)
--- NOTE | 2021-04-30 12:03 | MHC.SLORD ---
Speech Language Pathology Order Status: Updated with RN, Neeta, who reported that pt is doing much better this date following her Code Blue 04/29. Per RN, pt is tolerating her current diet consistency of NDD3 CHOPPED/ADVANCED solids with THIN liquids well. RN reported pt has been conversing with her 1:1 sitter in [place]ian. EMBOSSER OPERATOR will continue to follow to determine if an upgrade in pt's solid consistency is appropriate.
--- NOTE | 2021-04-30 13:18 | MHC.CLN ---
F/U PT CONTINUES WITH VARIABLE PO; NOTED 100% TODAY PER NSG SEEMS MORE ALERT PER NSG DIET RX: CHOPPED-APPROPRIATE PT RECEIVING ENSURE BID TO INCREASE KCAL PROVIDES 700KCALS, 26G PROTEIN CURRENT WT 152# CONTINUE TO MONITOR AND ENCOURAGE PO INTAKE
[2021-04-30 16:12] LABS: Glucose, Whole Blood 196 mg/dL (60-115)
--- NOTE | 2021-04-30 17:17 | HO.PM.IMPN ---
Subjective Subjective Date of Service: 05/01/21 Interval History: Events from last 24 hours noted patient had code blue, but quickly recovered, patient remained stable in last 24 hours denies chest pain, no shortness of breath remains on high-flow oxygen and 100% non-rebreather finger oximetry 98%. Review of Systems General no headache, no dizziness, no fever chills. CVS no chest pain, no palpitation. Respiratory no cough, no sob. Gastrointestinal no nausea no vomiting, no abdominal pain no urgency, no frequency Review of Systems: Yes all other systems are reviewed and are negative Physical Exam Vital Signs: Vital Signs: Last Vital Signs Temp 97.2 F 04/30/21 15:20 Pulse 81 04/30/21 15:20 Resp 20 04/30/21 15:51 BP 107/67 04/30/21 15:20 Pulse Ox 98 04/30/21 15:20 Body Mass Index 29.7 General: Awake alert answering questions appropriately , in no acute distress Resp:? Lungs clear to auscultation, bibasilar crackles, no accessory muscles used CVS: S1,S2,RRR GI: soft, non tender, non distended, bowel sounds audible Extremities no edema Skin no rash Neuro:? motor grossly intact, alert ? Objective Data Active Medications Acetaminophen (Acetaminophen 325 Mg Tablet) 650 mg PO Q6H PRN PRN Reason: Fever Last Admin: 04/30/21 08:01 Dose: 650 mg Documented by: CHRIS Acyclovir (Acyclovir 5 % Oint 15 Gm Tube) 1 gm TOPICAL TID PENDING SALE TO [facility] Last Admin: 04/30/21 14:46 Dose: Not Given Documented by: CHRIS Non-Admin Reason: Patient Refused Aripiprazole (Aripiprazole 2 Mg Tablet) 2 mg PO DAILY PENDING SALE TO [facility] Last Admin: 04/30/21 08:02 Dose: 2 mg Documented by: CHRIS Aspirin (Aspirin 325 Mg Tablet) 325 mg PO DAILY PENDING SALE TO [facility] Last Admin: 04/30/21 08:01 Dose: 325 mg Documented by: CHRIS Atorvastatin Calcium (Atorvastatin Calcium 40 Mg Tablet) 40 mg PO DAILY@0900 PENDING SALE TO [facility] Last Admin: 04/30/21 08:02 Dose: 40 mg Documented by: CHRIS Carvedilol (Carvedilol 12.5 Mg Tablet) 25 mg PO BID PENDING SALE TO [facility]; Protocol Last Admin: 04/30/21 08:01 Dose: 25 mg Documented by: CHRIS Enoxaparin Sodium (Enoxaparin Sodium 40 Mg/0.4 Ml Syringe) 40 mg SUBCUT DAILY PENDING SALE TO [facility] Last Admin: 04/30/21 08:01 Dose: 40 mg Documented by: CHRIS Famotidine (Famotidine 20 Mg Tablet) 20 mg PO DAILY PENDING SALE TO [facility] Last Admin: 04/30/21 08:02 Dose: 20 mg Documented by: CHRIS Hydroxyzine HCl (Hydroxyzine Hcl 50 Mg/Ml Vial) 25 mg IM Q4H PRN PRN Reason: anxiety/restlessness Last Admin: 04/28/21 20:27 Dose: 25 mg Documented by: KATLYN Insulin Glargine (Insulin Glargine,Hum.Rec.Anlog 100 Unit/Ml 10 Ml Vial) 10 unit SUBCUT BID PENDING SALE TO [facility] Last Admin: 04/30/21 07:59 Dose: Not Given Documented by: CHRIS Non-Admin Reason: No Insulin Coverage Insulin Human Lispro (Insulin Lispro 100 Unit/Ml 3 Ml Vial) 0 unit SUBCUT QIDACHS PENDING SALE TO [facility]; Protocol Last Admin: 04/30/21 16:47 Dose: 2 unit Documented by: CHRIS Pharmacy Consult (Consult Rx Perform Med Rec) 1 each MISCELLANE ONCE PRN PRN Reason: Consult order Sodium Chloride (0.9 % Sodium Chloride Flush 3 Ml Syringe) [facility] Last Admin: 04/30/21 16:47 Dose: 3 ml Documented by: CHRIS Sodium Chloride (0.9 % Sodium Chloride Flush 3 Ml Syringe) 3 ml IVFLUSH [facility] Last Admin: 04/30/21 16:47 Dose: 3 ml Documented by: CHRIS Thiamine HCl (Thiamine Hcl 100 Mg Tablet) 200 mg PO BID PENDING SALE TO [facility] Last Admin: 04/30/21 08:01 Dose: 200 mg Documented by: CHRIS Vitamin D (Cholecalciferol (Vitamin D3) 25 Mcg Tablet) 50 mcg PO DAILY PENDING SALE TO [facility] Last Admin: 04/30/21 08:01 Dose: 50 mcg Documented by: CHRIS Labs CBC & Chem 7: 04/30/21 06:59 05/01/21 06:30 Labs: Laboratory Results - last 24 hr 04/29/21 04/30/21 04/30/21 19:45 06:59 06:59 MCV 82.9 MCH 24.6 L MCHC 29.7 L RDW 16.0 Plt Count 313 MPV 10.0 Absolute Nucleated RBC 0.020 H Nucleated RBC % (auto) 0.2 Anion Gap 14 Estim Creat Clear Calc 95.9 Estimated GFR > 60 POC Glucose 252 H Fasting Glucose 194 H Calcium 8.3 L 04/30/21 04/30/21 04/30/21 07:12 11:11 16:04 MCV MCH MCHC RDW Plt Count MPV Absolute Nucleated RBC Nucleated RBC % (auto) Anion Gap Estim Creat Clear Calc Estimated GFR POC Glucose 178 H 266 H 196 H Fasting Glucose Calcium Assessment and Plan (1) Generalized anxiety disorder: Status: Acute (2) Acute respiratory failure with hypoxemia: Status: Acute (3) Pneumonia due to COVID-19 virus: Status: Acute Assessment and Plan: 65-year-old moderately obese type 2 diabetic female who was vaccinated but was COVID-19 positive for the pneumonitis/ARDS and acute hypoxemic respiratory failure and encephalopathy as well as acute renal insufficiency.Transferred to floor 04/16/2021; has been hemodynamically stable but essentially nonverbal.? TLC/Feeding tube removed. Took spoonfuls of H2o without issue; intermittently taking pills in pudding, o2 requirements have been increasing over last few days acute hypoxic respiratory failure due to covid pneumonia complicated by SUDEEP and metabolic encephalopathy Persistent hypoxia requiring high-flow oxygen and non-rebreather mask, finger oximetry 98%, oxygen requirement increase in last few days Was transferred from ICU after requiring intubation post covid, aspiration pneumonitis, received 2 doses of iv lasix for any acute on chronic diastolic chf, BNP unremarkable, repeated CXR showed no significant change after diuresis steroid taper SUDEEP resolved creatinine 2.41 on admission, now 0.5 metabolic Encephalopathy; ICU delerium, resolved dysphagia Continue Ensure b.i.d. chopped advance diet Continue calorie count - patient not taking adequate calories recommending Gtube, however, family feels patient's intake will improve at home and declined Gtube even if no significant intake. DMII bs 196 continue Lantus 10 units b.i.d. and insulin sliding scale monitor poc hypokalemia, hypomagnesemia Potassium 3.2 will replace and follow, magnesium normalized Hyperlipidemia continue Lipitor Hypertension Depression dvt prophylaxis - lovenox Quality Stroke Does the patient have a stroke diagnosis?: No VTE Prior VTE?: No VTE Risk Level:: Medical - moderate - high VTE Device Contraindication: Treatment Not Indicated VTE Drug Contraindication: N/A - Med Ordered
[2021-04-30] MEDS: Potassium Chloride Packet 20 MEQ PACKET 40 MEQ PO (17:46)
[2021-04-30 19:37] LABS: Glucose, Whole Blood 158 mg/dL (60-115)
[2021-05-01] VITALS (13 sets, daily range): BP systolic 109–140; BP diastolic 49–64; PULSE 92–113; RESP 18–26; TEMP 36.4–37.7; O2SAT 88–97
[2021-05-01] MEDS: Acetaminophen 325 MG TABLET 650 MG PO ×2 (00:51→13:03)
[2021-05-01 07:25] LABS: Anion Gap 12 (12-20); Blood Urea Nitrogen 16 mg/dL (9-16); Calcium 8.3 mg/dL (8.4-10.2); Carbon Dioxide 33 mmol/L (22-29); Chloride 98 mmol/L (96-108); Creatinine Clr Calc Pharmacy 90.4; Estimated Glomerular Filt Rate > 60; Glucose Random 160 mg/dL (60-115); Potassium 3.9 mmol/L (3.3-5.1); Sodium 139 mmol/L (135-145)
[2021-05-01 07:47] LABS: Glucose, Whole Blood 150 mg/dL (60-115)
[2021-05-01] MEDS: 0.9 % Sodium Chloride Flush 3 ML SYRINGE IVFLUSH ×5 (10:31→20:50)
[2021-05-01] MEDS: carvediloL 12.5 MG TABLET 25 MG PO ×2 (10:33→20:50)
[2021-05-01] MEDS: Thiamine HCL 100 MG TABLET 200 MG PO ×2 (10:34→20:49)
[2021-05-01] MEDS: Atorvastatin Calcium 40 MG TABLET PO (10:34)
[2021-05-01] MEDS: Enoxaparin Sodium 40 MG/0.4 ML SYRINGE SUBCUT (10:35)
[2021-05-01] MEDS: Acyclovir 5 % Oint 15 GM TUBE TOPICAL ×2 (10:39→20:50)
--- NOTE | 2021-05-01 11:38 | MHC.SL.SWA ---
Speech Pathologist Impression: Risk of Aspiration Oralpharyngeal Dysphagia Risk of Aspiration Due to: Lethargy Medically Fragile History of Pneumonia Hx of Recent Extubation Weak Cough Weak Voice Dysphasia Diet Status: DOWNGRADE Liquid Consistency and Strategies for Safe Swallow: Liquid Intake Recommendation: Thin Liquid Intake Strategies: Small Sips Solid Food Consistency: Dietary Recommendations: Pureed (NDD1) Recommend DOWNGRADE to PUREED solid (NDD1) due to increase in O2 needs and MD reports that patient coughs on solids. Continue THIN liquids via small, staff controlled sips; Pills to be administered CRUSHED in PUREE. Pt requires strict aspiration precautions and 1:1 assist with all PO intake. Hold PO if pt becomes lethargic or demonstrates overt s/s aspiration during/after PO intake. Diet order updated by RFID ANALYST. Message sent to RN, RD, and MD. Oral Medication Intake: Crushed with Puree Compensatory Strategies and Precautions to be Taken for Safe Swallow: Sitting Upright (90 deg) Small Bites and Sips Alternate Liquids/Solids Rate of Ingestion Change Oral Check Supervision While Eating and Drinking for Safe Swallow: Total Assistance Swallowing Recommended Treatments: Compens. Strategy Educat. Recommendation for Speech: Comment: Patient was seen for bedside dysphagia evaluation on 04/15/21. Patient was intubated 03/29/21 - 04/11/21. Patient was extubated to high flow nasal cannula successfully. Patient failed nursing swallow screenings on 04/11 and 04/12. Per RN report, patient requires suctioning and has weak cough. Patient presented with dried secretions on lips and tongue. Patient was provided with oral care with mouthwash and swab. No swallow with mouthwash, but noted gurgly throat sound. Patient was asked to initiate volitional swallow. Patient attempted swallow and this appeared effortful. However, upon palpation, no laryngeal elevation. Patient was asked to produce cough. Patient has extremely weak cough. Patient would not be able to protect airway. No PO trials administered due to patient's need for suctioning, absent swallow trigger, and extremely weak cough. 04/16/21- Patient declined PO trials. Patient as unable/unwilling to elicit volitional dry swallow at that time. RN yesterday reported severe motor weakness and liquid spilled from oral cavity when screening was attempted. Patient continues to receive KO feeds via right nare. Her chest x-ray on 04/16 showed, unchanged multifocal airspace disease the lungs compared with 04/12/21. 04/17/21- Patient was seen by Croatian-speaking RFID ANALYST. Patient followed command for volitional dry swallow. Dry swallow was delayed and appeared effortful. Note significantly reduced laryngeal elevation. When given trace water, note complete anterior spillage. Patient then refused, becoming tearful. 04/21/21- RN reports patient continues to refuse PO. Per RN, patient was not appropriate for PO trials this date. RFID ANALYST checked in with Dr. Hernandez. RFID ANALYST recommended NPO status last week 04/15, 04/17, 04/18. RFID ANALYST updated MD on observations made last week- extremely weak cough, delayed/effortful dry swallow, anterior loss of water, refusal to participate in dysphagia treatment. Per MD, diet order was changed to ground/mechanically altered diet in hopes patient would do better without NGT. 04/22/21-RN reports that patient continues to refuse PO and spits out her medications. RFID ANALYST. Patient was able to swallow on command x2 times. Dry swallow was significantly delayed and laryngeal elevation incomplete. Patient accepted trace amount of water. Note delayed swallow and no overt s/s of aspiration on trace amount water. Patient was offered different food and drink items, but refused all PO. Patient turned her face away, refused to open her mouth, and became tearful. 05/01/21- MD spoke to RFID ANALYST and requested patient be downgraded to pureed solids because she has been coughing on solids. Additionally, RN reported that patient's NRB mask is removed for PO intake, and patient takes a while to recover each time it is removed for a bite. Patient tolerated crushed pills in applesauce. She had more pills to take, but refused despite encouragement/education and became tearful. She tolerated thin liquid by straw with no overt s/s of aspiration. Patient refused all food options offered to her. Senior Logistics Manager Clinican/Clinical Fellow: No Supervisory Statement: I have reviewed and agree with the student/clinical fellow's documentation: N/A Speech Language Pathologist: Kenya Quiroz M.A., [facility]-RFID ANALYST
[2021-05-01 11:39] LABS: Glucose, Whole Blood 264 mg/dL (60-115)
--- NOTE | 2021-05-01 12:55 | MHC.CM.PN ---
Per ROUNDS discussion, Patient is not yet medically cleared for dc (100% high flow O2, 100% [id number], Lethargic).STR is the goal for dc and CM will follow for possible need to adjust the dc plan.
[2021-05-01] MEDS: methylPREDNISolone Sod Succ 125 MG/2 ML VIAL 80 MG IVPUSH ×2 (13:03→20:48)
[2021-05-01] MEDS: Insulin Lispro 100 UNIT/ML 3 ML VIAL SUBCUT ×3 (13:04→20:49)
--- NOTE | 2021-05-01 13:29 | P.PNPL_ITS ---
Subjective Subjective Date of Service: 05/01/21 Principal diagnosis: kvng/ARDS Interval history: I was us to see this patient on an urgent basis because she is having increased respiratory distress, requiring high-flow O2 as well as non- rebreather mask. For the oxygenation, Condition has been noted to be getting worse in the last few days. This is not accompanied by any fever or chills, Patient has become much weaker and more somnolent than usual. This patient was admitted at the end of February with 1 weeks history of COVID symptoms, Around 10 2 she got worse and was transferred to intensive care unit. Patient has been treated with intubation, ventilatory support and then, on high- flow O2. Initially she received a course of IV dexamethasone and also broad-spectrum antibiotics. She has been in the hospital at least for 6 weeks not making much progress and continue to require the O2 with high-flow. As noted above now for the past few days her condition is getting worse. Objective Data Labs CBC & Chem 7: 04/30/21 06:59 05/01/21 06:30 Labs: Laboratory Results - last 24 hr 04/30/21 04/30/21 05/01/21 16:04 19:31 06:30 Sodium 139 Potassium 3.9 D Chloride 98 Carbon Dioxide 33 H Anion Gap 12 BUN 16 Creatinine 0.53 Estim Creat Clear Calc 90.4 Estimated GFR > 60 POC Glucose 196 H 158 H Random Glucose 160 H Calcium 8.3 L 05/01/21 05/01/21 07:28 11:17 Sodium Potassium Chloride Carbon Dioxide Anion Gap BUN Creatinine Estim Creat Clear Calc Estimated GFR POC Glucose 150 H 264 H Random Glucose Calcium Microbiology Microbiology Results: Microbiology 04/12/21 22:59 Blood - Venous Blood Culture - Final No growth after 5 days. 04/12/21 22:59 Blood - Venous Blood Culture - Final No growth after 5 days. 04/12/21 00:00 Urine clean catch - Urine lopez top Urine Culture - Final No growth. 04/09/21 09:42 Blood - Venous Blood Culture - Final No growth after 5 days. 04/09/21 09:32 Blood - Venous Blood Culture - Final No growth after 5 days. 04/09/21 19:50 Sputum - Suctioned Gram Stain - Final 04/09/21 19:50 Sputum - Suctioned Sputum Culture - Final Staphylococcus aureus Acinetobacter baumannii 04/05/21 07:25 Blood - Venous Blood Culture - Final No growth after 5 days. 04/05/21 07:25 Blood - Venous Blood Culture - Final No growth after 5 days. 04/05/21 08:42 Urine Catheterized - Rashid Catheter Urine Culture - Final Preethi glabrata 04/05/21 08:42 Sputum - Suctioned Gram Stain - Final 04/05/21 08:42 Sputum - Suctioned Sputum Culture - Final 04/01/21 14:28 Sputum - Suctioned Gram Stain - Final 04/01/21 14:28 Sputum - Suctioned Sputum Culture - Final Preethi albicans 03/26/21 16:43 Blood - Venous Blood Culture - Final No growth after 5 days. 03/27/21 Unknown Urine Catheterized - Rashid Catheter Urine Culture - Final Escherichia coli 03/26/21 16:43 Blood - Venous Blood Culture - Final Escherichia coli Review of Systems Review of Systems Yes Unobtainable due to mental condition Physical Exam Vital Signs: Vital Signs: Last Vital Signs Temp 98.4 F 05/01/21 11:24 Pulse 107 H 05/01/21 11:24 Resp 22 H 05/01/21 11:24 BP 118/53 L 05/01/21 11:24 Pulse Ox 93 05/01/21 11:24 Body Mass Index 29.7 Patient is not responsive to conversation, she just nods her head. Respiratory rate 22 but does not seem to be in distress. Const: General: no acute distress, alert and awake Orientation/consciousness: patient oriented x3 HENMT: Head: Yes normal to inspection General nose exam: No nasal polyps present and No nasal discharge present Face and sinus: Yes sinuses nontender Mouth: oropharynx normal Throat: Yes posterior oropharynx normal Eyes: General: appearance normal, both eyes and all related structures Neck: Neck: Yes normal visual inspection, Yes no lymphadenopathy, Yes trachea midline and Yes no JVD Thyroid: Thyroid normal Chest: Chest palpation & inspection: normal inspection of the chest, normal pa lpation of entire chest wall and no tenderness Resp: Other: Percussion note resonant, she does have breath sounds on both sides which are equal. No wheezes are heard. But she has inspiratory crackles over the lower lobes. Cardio: Palpation: normal PMI Rate: regular rate Rhythm: regular rhythm Heart sounds: no gallops and no murmurs Peripheral pulses: Peripheral pulses 2+ throughout GI: Palpation (GI): Soft to palpation, nontender, No hepatosplenomegaly present and no masses Auscultation: normal bowel sounds Back/Spine/Pelvis: Thoracic/Lumbar Spine: thoracic and lumbar spine normal to inspection Skin: General skin exam: no rashes or lesions noted Neuro: General: patient oriented x3 and no focal motor deficits Cranial nerves: Yes CN's II-XII intact bilaterally Extrem: General: Yes normal to inspection, Yes no clubbing, cyanosis or edema and Yes no calf tenderness Psych: Speech and movement: Normal speech and movement present Procedures Date of Service Date of Service: 05/01/21 Assessment and Plan Assessment and plan (1) Acute respiratory distress syndrome (ARDS) due to COVID-19 virus: Problem details: Patient is about 6 weeks into post COVID state. She is developing increased respiratory distress and requiring O2 by high-flow plus non-rebreather mask Fio2 100 % Status: Acute (2) Pneumonia due to COVID-19 virus: Problem details: Her post COVID pneumonitis is worse, I recommend that we try a high does IV steroid for a few days, Has been started on Solu-Medrol 80 mg IV q.8 hours. Continue oxygenation, as needed to keep O2 sat above 90%. Prognosis at this point seems to be guarded. Code status needs to be re-addressed . Status: Acute Time Spent With Patient Time: Total time spent is greater than 50% in coordination of care (as documented) at patient's floor/unit and/or counseling patient: Time with patient: 25 - 35 minutes Progress Note: Quality Stroke Does the patient have a stroke diagnosis?: No
[2021-05-01 16:40] LABS: Glucose, Whole Blood 210 mg/dL (60-115)
--- NOTE | 2021-05-01 17:12 | HO.PM.IMPN ---
Subjective Subjective Date of Service: 05/02/21 Interval History: Patient noted to have desaturation with eating and having coughing episodes, also noted to be lethargic patient awake alert knows she is in the hospital, but feel scared that she is not getting better. Review of Systems General no headache, no dizziness, no fever chills.? CVS no chest pain, no palpitation.? Respiratory no cough, denies sob , although gets hypoxic with minimal activity and eating Gastrointestinal no nausea, no vomiting, no abdominal pain no urgency, no frequency Review of Systems: Yes all other systems are reviewed and are negative Physical Exam Vital Signs: Vital Signs: Last Vital Signs Temp 99.8 F 05/01/21 15:26 Pulse 106 H 05/01/21 15:26 Resp 24 H 05/01/21 15:49 BP 129/60 05/01/21 15:26 Pulse Ox 94 05/01/21 15:26 Body Mass Index 29.7 General:? Awake alert answering questions appropriately , no acute distress, appears frail and weak Resp:? Lungs clear to auscultation, bibasilar crackles rt> left, no accessory muscles used CVS: S1,S2,RRR GI: soft, non tender, non distended, bowel sounds audible Extremities no edema Skin no rash Neuro:? motor grossly intact, alert Psych appropriate affect Objective Data Active Medications Acetaminophen (Acetaminophen 325 Mg Tablet) 650 mg PO Q6H PRN PRN Reason: Fever Last Admin: 05/01/21 13:03 Dose: 650 mg Documented by: REHANA Acyclovir (Acyclovir 5 % Oint 15 Gm Tube) 1 gm TOPICAL TID [facility] Last Admin: 05/01/21 16:37 Dose: Not Given Documented by: REHANA Non-Admin Reason: Patient Refused Aripiprazole (Aripiprazole 2 Mg Tablet) 2 mg PO DAILY [facility] Last Admin: 05/01/21 11:01 Dose: Not Given Documented by: REHANA Non-Admin Reason: Patient Refused Ascorbic Acid (Ascorbic Acid 500 Mg Tablet) 500 mg PO DAILY [facility] Aspirin (Aspirin 325 Mg Tablet) 325 mg PO DAILY [facility] Last Admin: 05/01/21 11:00 Dose: Not Given Documented by: REHANA Non-Admin Reason: Patient Refused Atorvastatin Calcium (Atorvastatin Calcium 40 Mg Tablet) 40 mg PO DAILY@0900 [facility] Last Admin: 05/01/21 10:34 Dose: 40 mg Documented by: REHANA Carvedilol (Carvedilol 12.5 Mg Tablet) 25 mg PO BID [facility]; Protocol Last Admin: 05/01/21 10:33 Dose: 25 mg Documented by: REHANA Enoxaparin Sodium (Enoxaparin Sodium 40 Mg/0.4 Ml Syringe) 40 mg SUBCUT DAILY [facility] Last Admin: 05/01/21 10:35 Dose: 40 mg Documented by: REHANA Famotidine (Famotidine 20 Mg Tablet) 20 mg PO DAILY [facility] Last Admin: 05/01/21 11:01 Dose: Not Given Documented by: REHANA Non-Admin Reason: Patient Refused Famotidine (Famotidine 20 Mg Tablet) 20 mg PO BID [facility] Furosemide (Furosemide 20 Mg/2 Ml Vial) 20 mg IVPUSH ONCE ONE; Protocol Stop: 05/01/21 17:09 Hydroxyzine HCl (Hydroxyzine Hcl 50 Mg/Ml Vial) 25 mg IM Q4H PRN PRN Reason: anxiety/restlessness Last Admin: 04/28/21 20:27 Dose: 25 mg Documented by: KATLYN Insulin Glargine (Insulin Glargine,Hum.Rec.Anlog 100 Unit/Ml 10 Ml Vial) 10 unit SUBCUT BID [facility] Last Admin: 05/01/21 10:59 Dose: Not Given Documented by: REHANA Non-Admin Reason: No Insulin Coverage Insulin Human Lispro (Insulin Lispro 100 Unit/Ml 3 Ml Vial) 0 unit SUBCUT QIDACHS [facility]; Protocol Last Admin: 05/01/21 13:04 Dose: 6 unit Documented by: REHANA Methylprednisolone Sodium Succinate (Methylprednisolone Sod Succ 125 Mg/2 Ml Vial) 80 mg IVPUSH Q8H [facility] Last Admin: 05/01/21 13:03 Dose: 80 mg Documented by: REHANA Pharmacy Consult (Consult Rx Perform Med Rec) 1 each MISCELLANE ONCE PRN PRN Reason: Consult order Sodium Chloride (0.9 % Sodium Chloride Flush 3 Ml Syringe) 3 ml IVFLUSH QSHIFT [facility] Last Admin: 05/01/21 10:31 Dose: 3 ml Documented by: REHANA Sodium Chloride (0.9 % Sodium Chloride Flush 3 Ml Syringe) 3 ml IVFLUSH QSHIFT [facility] Last Admin: 05/01/21 10:31 Dose: 3 ml Documented by: REHANA Thiamine HCl (Thiamine Hcl 100 Mg Tablet) 200 mg PO BID [facility] Last Admin: 05/01/21 10:34 Dose: 200 mg Documented by: REHANA Vitamin D (Cholecalciferol (Vitamin D3) 25 Mcg Tablet) 50 mcg PO DAILY [facility] Last Admin: 05/01/21 11:01 Dose: Not Given Documented by: REHANA Non-Admin Reason: Patient Refused Labs CBC & Chem 7: 04/30/21 06:59 05/01/21 06:30 Labs: Laboratory Results - last 24 hr 04/30/21 05/01/21 05/01/21 19:31 06:30 07:28 Anion Gap 12 Estim Creat Clear Calc 90.4 Estimated GFR > 60 POC Glucose 158 H 150 H Random Glucose 160 H Calcium 8.3 L 05/01/21 05/01/21 11:17 16:32 Anion Gap Estim Creat Clear Calc Estimated GFR POC Glucose 264 H 210 H Random Glucose Calcium Assessment and Plan (1) Acute respiratory failure with hypoxemia: Status: Acute (2) Pneumonia due to COVID-19 virus: Status: Acute (3) Essential hypertension: Status: Acute Assessment and Plan: 65-year-old moderately obese type 2 diabetic female who was vaccinated but was COVID-19 positive for the pneumonitis/ARDS and acute hypoxemic respiratory failure and encephalopathy as well as acute renal insufficiency.Transferred to floor 04/16/2021; has been hemodynamically stable but essentially nonverbal.? TLC/Feeding tube removed. Took spoonfuls of H2o without issue; intermittently taking pills in pudding, o2 requirements have been increasing over last few days acute hypoxic respiratory failure due to covid pneumonia complicated by SUDEEP and metabolic encephalopathy patient noted to have increase in oxygen requirement, remain on high-flow oxygen and 100% non-rebreather mask unable to wean oxygenation drops with eating and minimal activity Patient is status post intubation, has received Decadron,s/p Baricinib ,s/p antibiotics Has received IV Lasix for concerned for acute on chronic diastolic heart failure but had no change in clinical status Consulted Dr. Terrazas, obtain repeat chest x-ray that showed worsening bilateral patchy airspace opacities and slightly increased bilateral pleural effusion Will place patient on high-dose IV steroids, Pepcid, will repeat 1 dose of IV Lasix Will change diet to pureed and thin liquid , poor by mouth intake follow albumin continue Ensure b.i.d. Will add vitamin-C, zinc, cough medication Continue supportive care and gradually wean oxygen as tolerated, recommended frequent position change Call granddaughter and updated her regarding patient's condition family wishes to come and visit the patient. Will transfer her to non COVID isolation room so family can visit and help her in feedings. SUDEEP resolved creatinine 2.41 on admission, now 0.5 metabolic Encephalopathy; ICU delerium, resolved dysphagia Continue Ensure b.i.d. , change diet to pureed,thin liquids case discussed with speech therapist Continue calorie count - patient not taking adequate calories recommending Gtube, however, family feels patient's intake will improve at home and declined G tube even if no significant intake. DMII bs 196 continue Lantus 10 units b.i.d. and insulin sliding scale monitor pocWill monitor blood sugar closely since started on high-dose steroid hypokalemia, hypomagnesemia Repleted and normalized Hyperlipidemia continue Lipitor Hypertension blood pressure is stable continue Coreg Depression continue ability dvt prophylaxis - lovenox Quality Stroke Does the patient have a stroke diagnosis?: No VTE Prior VTE?: No VTE Risk Level:: Medical - moderate - high VTE Device Contraindication: Treatment Not Indicated VTE Drug Contraindication: N/A - Med Ordered
[2021-05-01] MEDS: Furosemide 20 MG/2 ML VIAL IVPUSH (17:39)
[2021-05-01 17:47] LABS: Albumin Level 2.1 g/dL (3.5-5.0); Total Protein 6.1 g/dL (6.5-8.0)
[2021-05-01 20:44] LABS: Glucose, Whole Blood 290 mg/dL (60-115)
[2021-05-01] MEDS: Insulin Glargine,Hum.rec.anlog 100 UNIT/ML 10 ML VIAL 10 UNIT SUBCUT (20:49)
[2021-05-01] MEDS: Famotidine 20 MG TABLET PO (20:49)
[2021-05-02] VITALS (13 sets, daily range): BP systolic 110–162; BP diastolic 51–72; PULSE 86–96; RESP 16–30; TEMP 36.2–37.2; O2SAT 86–93; BMI 30.9
[2021-05-02] MEDS: 0.9 % Sodium Chloride Flush 3 ML SYRINGE IVFLUSH ×7 (01:30→20:23)
[2021-05-02] MEDS: methylPREDNISolone Sod Succ 125 MG/2 ML VIAL 80 MG IVPUSH (04:11)
[2021-05-02 07:41] LABS: Glucose, Whole Blood 313 mg/dL (60-115)
[2021-05-02] MEDS: Insulin Lispro 100 UNIT/ML 3 ML VIAL SUBCUT ×4 (07:56→20:47)
--- NOTE | 2021-05-02 10:09 | MHC.SLORD ---
Speech Language Pathology Order Status: Pt with 1:1 sitter and continues on an NRB O2 mask. Per RN BURN and RN, pt unable to remove mask at this time for PO trials. RN reported that pt demonstrated a slightly improved appetite last evening and tolerated pureed solids with no overt s/s aspiration. Continue with NDD1 PUREED solids, THIN liquids via small, single cups sips (NO STRAWS), MEDS CRUSHED in puree, and strict aspiration precautions with 1:1 assist/supervision during PO intake. SHOE SEWING MACHINE OPERATOR AND TENDER will continue to follow pt.
[2021-05-02] MEDS: Enoxaparin Sodium 40 MG/0.4 ML SYRINGE SUBCUT (11:03)
[2021-05-02] MEDS: Insulin Glargine,Hum.rec.anlog 100 UNIT/ML 10 ML VIAL 10 UNIT SUBCUT ×2 (11:04→20:17)
[2021-05-02] MEDS: ARIPiprazole 2 MG TABLET PO (11:05)
[2021-05-02] MEDS: Atorvastatin Calcium 40 MG TABLET PO (11:05)
[2021-05-02] MEDS: Famotidine 20 MG TABLET PO ×2 (11:05→20:16)
[2021-05-02] MEDS: Cholecalciferol (Vitamin D3) 25 MCG TABLET 50 MCG PO (11:05)
[2021-05-02] MEDS: Thiamine HCL 100 MG TABLET 200 MG PO ×2 (11:05→20:16)
[2021-05-02] MEDS: Ascorbic Acid 500 MG TABLET PO (11:05)
[2021-05-02] MEDS: Acyclovir 5 % Oint 15 GM TUBE TOPICAL ×3 (11:06→20:23)
[2021-05-02] MEDS: carvediloL 12.5 MG TABLET 25 MG PO ×2 (11:06→20:16)
--- NOTE | 2021-05-02 11:07 | PM.PNPUL ---
Subjective Subjective Date of Service: 05/02/21 Principal diagnosis: kvng/ARDS Interval history: THIS PATIENT IS MORE, ALERT TODAY, SHE GESTURES WITH A SMILE , STILL NONVERBAL. SEEMS TO BE IN LESS RESPIRATORY DISTRESS. Objective Data Labs CBC & Chem 7: 04/30/21 06:59 05/01/21 06:30 Labs: Laboratory Results - last 24 hr 05/01/21 05/01/21 05/01/21 06:30 11:17 16:32 POC Glucose 264 H 210 H Total Protein 6.1 L Albumin 2.1 L 05/01/21 05/02/21 20:40 07:32 POC Glucose 290 H 313 H Total Protein Albumin Microbiology Microbiology Results: Microbiology 04/12/21 22:59 Blood - Venous Blood Culture - Final No growth after 5 days. 04/12/21 22:59 Blood - Venous Blood Culture - Final No growth after 5 days. 04/12/21 00:00 Urine clean catch - Urine lopez top Urine Culture - Final No growth. 04/09/21 09:42 Blood - Venous Blood Culture - Final No growth after 5 days. 04/09/21 09:32 Blood - Venous Blood Culture - Final No growth after 5 days. 04/09/21 19:50 Sputum - Suctioned Gram Stain - Final 04/09/21 19:50 Sputum - Suctioned Sputum Culture - Final Staphylococcus aureus Acinetobacter baumannii 04/05/21 07:25 Blood - Venous Blood Culture - Final No growth after 5 days. 04/05/21 07:25 Blood - Venous Blood Culture - Final No growth after 5 days. 04/05/21 08:42 Urine Catheterized - Rashid Catheter Urine Culture - Final Preethi glabrata 04/05/21 08:42 Sputum - Suctioned Gram Stain - Final 04/05/21 08:42 Sputum - Suctioned Sputum Culture - Final 04/01/21 14:28 Sputum - Suctioned Gram Stain - Final 04/01/21 14:28 Sputum - Suctioned Sputum Culture - Final Preethi albicans 03/26/21 16:43 Blood - Venous Blood Culture - Final No growth after 5 days. 03/27/21 Unknown Urine Catheterized - Rashid Catheter Urine Culture - Final Escherichia coli 03/26/21 16:43 Blood - Venous Blood Culture - Final Escherichia coli Physical Exam Vital Signs: Vital Signs: Last Vital Signs Temp 97.6 F 05/02/21 07:42 Pulse 88 05/02/21 10:39 Resp 26 H 05/02/21 08:15 BP 162/72 H 05/02/21 10:39 Pulse Ox 90 L 05/02/21 10:39 Body Mass Index 30.9 PATIENT IS NONVERBAL,, DID TURN HER HEAD AND GAVE ME A SMILE. SEEM TO BE LESS DISTRESSED. CHEST AUSCULTATION GOOD BREATH SOUNDS ON BOTH SIDES, BUT DIMINISHED OVER THE BASILAR AREAS. SHE DOES HAVE INSPIRATORY CRACKLES OVER THE LOWER LOBES ESPECIALLY OVER THE BASES, NO WHEEZES. Procedures Date of Service Date of Service: 05/02/21 Assessment and Plan Assessment and plan (1) Acute respiratory distress syndrome (ARDS) due to COVID-19 virus: Problem details: Patient is about 6 weeks into post COVID state. She continues to have respiratory distress and requiring O2 by high-flow plus non-rebreather mask Fio2 100 % Status: Acute (2) Acute respiratory failure with hypoxemia: Status: Acute (3) Pneumonia due to COVID-19 virus: Problem details: Her post COVID pneumonitis is worse, I recommend that we continue IV Solu-Medrol for a few more days, may decrease the dose to 40 mg IV q.8 hours. Continue oxygenation, as needed to keep O2 sat above 90%. Prognosis at this point seems to be guarded. Code status needs to be re-addressed . Status: Acute Time Spent With Patient Time: Total time spent is greater than 50% in coordination of care (as documented) at patient's floor/unit and/or counseling patient: Time with patient: 15 - 24 minutes Progress Note: Quality Stroke Does the patient have a stroke diagnosis?: No
[2021-05-02 11:15] LABS: Glucose, Whole Blood 320 mg/dL (60-115)
--- NOTE | 2021-05-02 11:27 | MHC.CM.PN ---
Per ROUNDS discussion, Patient is not yet medically cleared for dc. Per MD, Patient has been relocated off of the Covid Unit, where family will be allowed to visit and assist with feeding. STR continues to be the goal for dc and CM will follow for possible need to adjust the dc plan.
--- NOTE | 2021-05-02 12:09 | MHC.CLN ---
F/U PT CONTINUES WITH VARIABLE PO; NOTED PT A&OX3 DIET RX: PUREED-APPROPRIATE PT RECEIVING ENSURE BID TO INCREASE [facility] PROVIDES 700KCALS, 26G PROTEIN CURRENT WT 157.9# PT WITH ROOM TRANSFER FOR FAMILY VISITS; FAMILY PLANS TO ASSIST WITH FEEDING PT DURING MEALS CONTINUE TO MONITOR PO INTAKE AND WEEKLY WEIGHTS
[2021-05-02] MEDS: Aspirin 325 MG TABLET PO (12:22)
[2021-05-02] MEDS: methylPREDNISolone Sod Succ 125 MG/2 ML VIAL 40 MG IVPUSH ×2 (12:23→20:18)
--- NOTE | 2021-05-02 13:17 | P.PNIM_ITS ---
Subjective Subjective Date of Service: 05/02/21 Interval History: Being followed for acute hypoxic respiratory failure due to COVID-19 infection patient more awake alert this morning, still requiring high- flow oxygen with non-rebreather mask due to persistent hypoxia. Offers no complaints of worsening shortness of breath, no chest pain. Review of Systems General no headache, no dizziness, no fever chills.? CVS no chest pain, no palpitation.? Respiratory no cough, denies sob Gastrointestinal no nausea, no vomiting, no abdominal pain no urgency, no frequency Review of Systems: Yes all other systems are reviewed and are negative Physical Exam Vital Signs: Vital Signs: Last Vital Signs Temp 98.1 F 05/02/21 11:56 Pulse 92 05/02/21 11:56 Resp 22 H 05/02/21 11:56 BP 110/51 L 05/02/21 11:56 Pulse Ox 87 L 05/02/21 11:56 Body Mass Index 30.9 General:? Awake al ert answering ques tions appropriatel y , no acute distr ess Resp:? Lungs c lear to auscultati on, bibasilar crac kles rt> left, no accessory muscles used CVS: S1,S2,RR R GI: soft, non te nder, non distende d, bowel sounds au dible Extremities no edema Skin no r evelia Neuro:? motor grossly intact, al ert Psych appropri ate affect Objective Data Active Medications Acetaminophen (Acetaminophen 325 Mg Tablet) 650 mg PO Q6H PRN PRN Reason: Fever Last Admin: 05/01/21 13:03 Dose: 650 mg Documented by: REHANA Acyclovir (Acyclovir 5 % Oint 15 Gm Tube) 1 gm TOPICAL TID [facility] Last Admin: 05/02/21 11:06 Dose: 1 gm Documented by: REHANA Aripiprazole (Aripiprazole 2 Mg Tablet) 2 mg PO DAILY [facility] Last Admin: 05/02/21 11:05 Dose: 2 mg Documented by: REHANA Ascorbic Acid (Ascorbic Acid 500 Mg Tablet) 500 mg PO DAILY [facility] Last Admin: 05/02/21 11:05 Dose: 500 mg Documented by: REHANA Aspirin (Aspirin 325 Mg Tablet) 325 mg PO DAILY [facility] Last Admin: 05/02/21 12:22 Dose: 325 mg Documented by: REHANA Atorvastatin Calcium (Atorvastatin Calcium 40 Mg Tablet) 40 mg PO DAILY@0900 [facility] Last Admin: 05/02/21 11:05 Dose: 40 mg Documented by: REHANA Carvedilol (Carvedilol 12.5 Mg Tablet) 25 mg PO BID [facility]; Protocol Last Admin: 05/02/21 11:06 Dose: 25 mg Documented by: REHANA Enoxaparin Sodium (Enoxaparin Sodium 40 Mg/0.4 Ml Syringe) 40 mg SUBCUT DAILY [facility] Last Admin: 05/02/21 11:03 Dose: 40 mg Documented by: REHANA Famotidine (Famotidine 20 Mg Tablet) 20 mg PO BID [facility] Last Admin: 05/02/21 11:05 Dose: 20 mg Documented by: REHANA Insulin Glargine (Insulin Glargine,Hum.Rec.Anlog 100 Unit/Ml 10 Ml Vial) 10 unit SUBCUT BID [facility] Last Admin: 05/02/21 11:04 Dose: 10 unit Documented by: REHANA Insulin Human Lispro (Insulin Lispro 100 Unit/Ml 3 Ml Vial) 0 unit SUBCUT QIDACHS [facility]; Protocol Last Admin: 05/02/21 12:22 Dose: 8 unit Documented by: REHANA Methylprednisolone Sodium Succinate (Methylprednisolone Sod Succ 125 Mg/2 Ml Vial) 40 mg IVPUSH Q8H [facility] Last Admin: 05/02/21 12:23 Dose: 40 mg Documented by: REHANA Pharmacy Consult (Consult Rx Perform Med Rec) 1 each MISCELLANE ONCE PRN PRN Reason: Consult order Sodium Chloride (0.9 % Sodium Chloride Flush 3 Ml Syringe) 3 ml IVFLUSH [facility] Last Admin: 05/02/21 07:57 Dose: 3 ml Documented by: REHANA Sodium Chloride (0.9 % Sodium Chloride Flush 3 Ml Syringe) 3 ml IVFLUSH [facility] Last Admin: 05/02/21 07:57 Dose: 3 ml Documented by: REHANA Thiamine HCl (Thiamine Hcl 100 Mg Tablet) 200 mg PO BID [facility] Last Admin: 05/02/21 11:05 Dose: 200 mg Documented by: REHANA Vitamin D (Cholecalciferol (Vitamin D3) 25 Mcg Tablet) 50 mcg PO DAILY [facility] Last Admin: 05/02/21 11:05 Dose: 50 mcg Documented by: REHANA Labs CBC & Chem 7: 04/30/21 06:59 05/01/21 06:30 Labs: Laboratory Results - last 24 hr 05/01/21 05/01/21 05/01/21 06:30 16:32 20:40 POC Glucose 210 H 290 H Total Protein 6.1 L Albumin 2.1 L 05/02/21 05/02/21 07:32 11:05 POC Glucose 313 H 320 H Total Protein Albumin Assessment and Plan (1) Generalized anxiety disorder: Status: Acute (2) Major depression: Status: Acute (3) Acute respiratory failure with hypoxemia: Status: Acute (4) Pneumonia due to COVID-19 virus: Status: Acute Assessment and Plan: 65-year-old moderately obese type 2 diabetic female who was vaccinated but was COVID-19 positive for the pneumonitis/ARDS and acute hypoxemic respiratory failure and encephalopathy as well as acute renal insufficiency.Transferred to floor 04/16/2021; has been hemodynamically stable but essentially nonverbal.? TLC/Feeding tube removed. Took spoonfuls of H2o without issue; intermittently taking pills in pudding, o2 requirements have been increasing over last few days acute hypoxic respiratory failure due to covid pneumonia complicated by SUDEEP and metabolic encephalopathy Patient appears more awake alert this morning, in no respiratory distress oxygen requirement unchanged is still requiring high-flow oxygen and 100% non- rebreather mask unable to wean oxygenation drops with eating and minimal activity Patient is status post intubation, has received Decadron,s/p Baricinib ,s/p antibiotics Has been given trials with diuretics for concern for acute on chronic diastolic heart failure but had no change in clinical status repeat chest x-ray 05/01 showed worsening bilateral patchy airspace opacities and slightly increased bilateral pleural effusion Will continue IV steroids lower dose to 40 mg q.8 hours, continue Pepcid, vitamin-C, zinc, cough medication Continue supportive care and gradually wean oxygen as tolerated, recommended frequent position change Call granddaughter Ginger Mcclendon [phone] and left a message to update her regarding transferring patient to another room so family can come and visit and a sister in feedings, also called and left message on patient's daughter Lillie Mcclendon phone number SUDEEP resolved creatinine 2.41 on admission, now 0.5 metabolic Encephalopathy; ICU delerium, resolved dysphagia Continue Ensure b.i.d. , continue pureed diet and thin liquids since patient noted to be coughing with mechanical diet, case discussed with speech therapist Continue calorie count - patient not taking adequate calories, change Ensure can to t.i.d. Family declined G-tube, made arrangements for family to visit patient and research assistant member feeding DMII bs in 200s likely due to high-dose steroids will increase dose of Lantus and continue insulin sliding scale monitor poc closely hypokalemia, hypomagnesemia Repleted and normalized Hyperlipidemia continue Lipitor Hypertension blood pressure is stable continue Coreg Depression continue ability dvt prophylaxis - lovenox Quality Stroke Does the patient have a stroke diagnosis?: No VTE Prior VTE?: No VTE Risk Level:: Medical - moderate - high VTE Device Contraindication: Treatment Not Indicated VTE Drug Contraindication: N/A - Med Ordered
[2021-05-02 16:10] LABS: Glucose, Whole Blood 274 mg/dL (60-115)
[2021-05-02 20:27] LABS: Glucose, Whole Blood 341 mg/dL (60-115)
[2021-05-02 22:49] LABS: Anion Gap 10 (12-20); Blood Urea Nitrogen 23 mg/dL (9-16); Calcium 8.5 mg/dL (8.4-10.2); Carbon Dioxide 36 mmol/L (22-29); Chloride 95 mmol/L (96-108); Estimated Glomerular Filt Rate > 60; Glucose Random 380 mg/dL (60-115); Potassium 3.5 mmol/L (3.3-5.1); Sodium 137 mmol/L (135-145)
[2021-05-03] VITALS (15 sets, daily range): BP systolic 102–145; BP diastolic 45–84; PULSE 54–101; RESP 18–25; TEMP 36.7–37.2; O2SAT 90–96; BMI 30.5
[2021-05-03] MEDS: methylPREDNISolone Sod Succ 125 MG/2 ML VIAL 40 MG IVPUSH ×3 (05:00→21:07)
[2021-05-03 07:26] LABS: Glucose, Whole Blood 413 mg/dL (60-115)
[2021-05-03] MEDS: 0.9 % Sodium Chloride Flush 3 ML SYRINGE IVFLUSH ×5 (07:34→21:07)
[2021-05-03] MEDS: Insulin Lispro 100 UNIT/ML 3 ML VIAL SUBCUT ×4 (07:34→21:06)
[2021-05-03] MEDS: Acetaminophen 325 MG TABLET 650 MG PO (08:47)
[2021-05-03] MEDS: Insulin Glargine,Hum.rec.anlog 100 UNIT/ML 10 ML VIAL 10 UNIT SUBCUT ×2 (08:47→21:07)
--- NOTE | 2021-05-03 10:40 | P.PNPL_ITS ---
Subjective Subjective Date of Service: 05/03/21 Principal diagnosis: kvng/ARDS Interval history: This 65 years old female, remains semi alert, on very high concentrations of O2, by high-flow and non-rebreather mask. She is afebrile, remains somewhat tachypneic, there is no increase in respiratory distress. Objective Data Labs CBC & Chem 7: 04/30/21 06:59 05/02/21 21:59 Labs: Laboratory Results - last 24 hr 05/02/21 05/02/21 05/02/21 11:05 16:00 19:33 Sodium Potassium Chloride Carbon Dioxide Anion Gap BUN Creatinine Estim Creat Clear Calc Estimated GFR POC Glucose 320 H 274 H 341 H Random Glucose Calcium 05/02/21 05/03/21 21:59 07:09 Sodium 137 Potassium 3.5 Chloride 95 L Carbon Dioxide 36 H Anion Gap 10 L BUN 23 H Creatinine 0.67 Estim Creat Clear Calc 73.0 Estimated GFR > 60 POC Glucose 413 H* Random Glucose 380 H* Calcium 8.5 Microbiology Microbiology Results: Microbiology 04/12/21 22:59 Blood - Venous Blood Culture - Final No growth after 5 days. 04/12/21 22:59 Blood - Venous Blood Culture - Final No growth after 5 days. 04/12/21 00:00 Urine clean catch - Urine lopez top Urine Culture - Final No growth. 04/09/21 09:42 Blood - Venous Blood Culture - Final No growth after 5 days. 04/09/21 09:32 Blood - Venous Blood Culture - Final No growth after 5 days. 04/09/21 19:50 Sputum - Suctioned Gram Stain - Final 04/09/21 19:50 Sputum - Suctioned Sputum Culture - Final Staphylococcus aureus Acinetobacter baumannii 04/05/21 07:25 Blood - Venous Blood Culture - Final No growth after 5 days. 04/05/21 07:25 Blood - Venous Blood Culture - Final No growth after 5 days. 04/05/21 08:42 Urine Catheterized - Rashid Catheter Urine Culture - Final Preethi glabrata 04/05/21 08:42 Sputum - Suctioned Gram Stain - Final 04/05/21 08:42 Sputum - Suctioned Sputum Culture - Final 04/01/21 14:28 Sputum - Suctioned Gram Stain - Final 04/01/21 14:28 Sputum - Suctioned Sputum Culture - Final Preethi albicans 03/26/21 16:43 Blood - Venous Blood Culture - Final No growth after 5 days. 03/27/21 Unknown Urine Catheterized - Rashid Catheter Urine Culture - Final Escherichia coli 03/26/21 16:43 Blood - Venous Blood Culture - Final Escherichia coli Review of Systems Review of Systems Yes Unobtainable due to mental condition Physical Exam Vital Signs: Vital Signs: Last Vital Signs Temp 98.4 F 05/03/21 07:10 Pulse 93 05/03/21 07:10 Resp 22 H 05/03/21 07:34 BP 141/74 H 05/03/21 07:10 Pulse Ox 91 L 05/03/21 07:10 Body Mass Index 30.5 Const: Other: Semi alert, does, gesture by a some smiling. Appears comfortabl e General: comfortable, no acute distress, alert and awake Orientation/consciousness: patient oriented x3 HENMT: Other: Patient has the high-flow, by nasal air , and also has non- rebreather mask on . Eyes: General: appearance normal, both eyes and all related structures Neck: Neck: Yes normal visual inspection, Yes no lymphadenopathy, Yes trachea midline and Yes no JVD Thyroid: Thyroid normal Chest: Chest palpation & inspection: normal inspection of the chest, normal palpation of entire chest wall and no tenderness Resp: Other: Percussion note resonant, breath sounds are coarse but equal on both sides. Inspiratory crackles heard over the basilar areas, no wheezes. Cardio: Palpation: normal PMI Rate: regular rate Rhythm: regular rhythm Heart sounds: no gallops and no murmurs GI: Palpation (GI): Soft to palpation, Tenderness to palpation present (GI), No hepatosplenomegaly present and Palpable mass present Auscultation: normal bowel sounds Back/Spine/Pelvis: Thoracic/Lumbar Spine: thoracic and lumbar spine normal to inspection Skin: General skin exam: no rashes or lesions noted Neuro: General: patient oriented x3 and no focal motor deficits Cranial nerves: Yes CN's II-XII intact bilaterally Extrem: General: Yes normal to inspection, Yes no clubbing, cyanosis or edema and Yes no calf tenderness Psych: Speech and movement: Normal speech and movement present Procedures Date of Service Date of Service: 05/03/21 Assessment and Plan Assessment and plan (1) Acute respiratory distress syndrome (ARDS) due to COVID-19 virus: Problem details: Patient is about 6 weeks into post COVID state. She continues to have respiratory distress and requiring O2 by high-flow plus non-rebreather mask Fio2 100 % Status: Acute (2) Pneumonia due to COVID-19 virus: Problem details: Her post COVID pneumonitis is worse, I recommend that we continue IV Solu-Medrol for a few more days, may decrease the dose to 40 mg IV q.8 hours. Continue oxygenation, as needed with attempts to wean down keeping O2 sat above 90%. Prognosis at this point seems to be guarded. Status: Acute Time Spent With Patient Time: Total time spent is greater than 50% in coordination of care (as documented) at patient's floor/unit and/or counseling patient: Time with patient: 15 - 24 minutes Progress Note: Quality Stroke Does the patient have a stroke diagnosis?: No
[2021-05-03] MEDS: Enoxaparin Sodium 40 MG/0.4 ML SYRINGE SUBCUT (11:05)
[2021-05-03] MEDS: Thiamine HCL 100 MG TABLET 200 MG PO ×2 (11:07→21:06)
[2021-05-03] MEDS: Atorvastatin Calcium 40 MG TABLET PO (11:07)
[2021-05-03] MEDS: Aspirin 325 MG TABLET PO (11:07)
[2021-05-03] MEDS: Cholecalciferol (Vitamin D3) 25 MCG TABLET 50 MCG PO (11:07)
[2021-05-03] MEDS: Acyclovir 5 % Oint 15 GM TUBE TOPICAL ×3 (11:08→21:07)
[2021-05-03] MEDS: ARIPiprazole 2 MG TABLET PO (11:08)
[2021-05-03] MEDS: Famotidine 20 MG TABLET PO ×2 (11:08→21:06)
[2021-05-03] MEDS: Ascorbic Acid 500 MG TABLET PO (11:08)
[2021-05-03] MEDS: carvediloL 12.5 MG TABLET 25 MG PO ×2 (11:08→21:05)
[2021-05-03 11:31] LABS: Glucose, Whole Blood 370 mg/dL (60-115)
--- NOTE | 2021-05-03 13:11 | HO.PM.IMPN ---
Subjective Subjective Date of Service: 05/03/21 Interval History: Being followed for hypoxic respiratory failure due to COVID, history obtained via staffing director patient complaining of shortness of breath, denies chest pain, no fevers no chills no acute issues overnight Review of Systems General no headache, no dizziness, no fever chills.? CVS no chest pain, no palpitation.? Respiratory no cough, + sob Gastrointestinal no nausea, no vomiting, no abdominal pain no urgency, no frequency Review of Systems: Yes all other systems are reviewed and are negative Physical Exam Vital Signs: Vital Signs: Last Vital Signs Temp 98.5 F 05/03/21 11:17 Pulse 101 H 05/03/21 11:17 Resp 22 H 05/03/21 11:35 BP 134/68 05/03/21 11:17 Pulse Ox 94 05/03/21 11:17 Body Mass Index 30.5 General:? Awake alert answering questions appropriately , no acute distress Resp:? Lungs clear to auscultation, bibasilar crackles rt> left, no accessory muscles use CVS: S1,S2,RRR GI: soft, non tender, non distended, bowel sounds audible Extremities no edema Skin no rash Neuro:? motorgrossly intact, alert Psych appropriate affect Objective Data Active Medications Acetaminophen (Acetaminophen 325 Mg Tablet) 650 mg PO Q6H PRN PRN Reason: Fever Last Admin: 05/03/21 08:47 Dose: 650 mg Documented by: TONI Acyclovir (Acyclovir 5 % Oint 15 Gm Tube) 1 gm TOPICAL TID [facility] Last Admin: 05/03/21 11:08 Dose: 1 gm Documented by: TONI Aripiprazole (Aripiprazole 2 Mg Tablet) 2 mg PO DAILY [facility] Last Admin: 05/03/21 11:08 Dose: 2 mg Documented by: TONI Artificial Tears (Artificial Tears 15 Ml Drops) 1 drop EYE-BOTH Q4H PRN PRN Reason: Dry Eyes Ascorbic Acid (Ascorbic Acid 500 Mg Tablet) 500 mg PO DAILY [facility] Last Admin: 05/03/21 11:08 Dose: 500 mg Documented by: TONI Aspirin (Aspirin 325 Mg Tablet) 325 mg PO DAILY [facility] Last Admin: 05/03/21 11:07 Dose: 325 mg Documented by: TONI Atorvastatin Calcium (Atorvastatin Calcium 40 Mg Tablet) 40 mg PO DAILY@0900 [facility] Last Admin: 05/03/21 11:07 Dose: 40 mg Documented by: TONI Carvedilol (Carvedilol 12.5 Mg Tablet) 25 mg PO BID [facility]; Protocol Last Admin: 05/03/21 11:08 Dose: 25 mg Documented by: TONI Enoxaparin Sodium (Enoxaparin Sodium 40 Mg/0.4 Ml Syringe) 40 mg SUBCUT DAILY [facility] Last Admin: 05/03/21 11:05 Dose: 40 mg Documented by: TONI Famotidine (Famotidine 20 Mg Tablet) 20 mg PO BID [facility] Last Admin: 05/03/21 11:08 Dose: 20 mg Documented by: TONI Insulin Glargine (Insulin Glargine,Hum.Rec.Anlog 100 Unit/Ml 10 Ml Vial) 10 unit SUBCUT BID [facility] Last Admin: 05/03/21 08:47 Dose: 10 unit Documented by: TONI Insulin Human Lispro (Insulin Lispro 100 Unit/Ml 3 Ml Vial) 0 unit SUBCUT QIDACHS [facility]; Protocol Last Admin: 05/03/21 11:55 Dose: 12 unit Documented by: TONI Methylprednisolone Sodium Succinate (Methylprednisolone Sod Succ 125 Mg/2 Ml Vial) 40 mg IVPUSH Q8H [facility] Last Admin: 05/03/21 10:49 Dose: 40 mg Documented by: TONI Pharmacy Consult (Consult Rx Perform Med Rec) 1 each MISCELLANE ONCE PRN PRN Reason: Consult order Sodium Chloride (0.9 % Sodium Chloride Flush 3 Ml Syringe) 3 ml IVFLUSH [facility] Last Admin: 05/03/21 07:34 Dose: 3 ml Documented by: TONI Sodium Chloride (0.9 % Sodium Chloride Flush 3 Ml Syringe) [facility] Last Admin: 05/03/21 07:34 Dose: 3 ml Documented by: TONI Thiamine HCl (Thiamine Hcl 100 Mg Tablet) 200 mg PO BID [facility] Last Admin: 05/03/21 11:07 Dose: 200 mg Documented by: TONI Vitamin D (Cholecalciferol (Vitamin D3) 25 Mcg Tablet) 50 mcg PO DAILY [facility] Last Admin: 05/03/21 11:07 Dose: 50 mcg Documented by: TONI Labs CBC & Chem 7: 04/30/21 06:59 05/02/21 21:59 Labs: Laboratory Results - last 24 hr 05/02/21 05/02/21 05/02/21 16:00 19:33 21:59 Anion Gap 10 L Estim Creat Clear Calc 73.0 Estimated GFR > 60 POC Glucose 274 H 341 H Random Glucose 380 H* Calcium 8.5 05/03/21 05/03/21 07:09 11:16 Anion Gap Estim Creat Clear Calc Estimated GFR POC Glucose 413 H* 370 H* Random Glucose Calcium Assessment and Plan (1) Generalized anxiety disorder: Status: Acute (2) Acute respiratory failure with hypoxemia: Status: Acute (3) Pneumonia due to COVID-19 virus: Status: Acute (4) Acute hyperglycemia: Status: Acute Assessment and Plan: 65-year-old moderately obese type 2 diabetic female who was vaccinated but was COVID-19 positive for the pneumonitis/ARDS and acute hypoxemic respiratory failure and encephalopathy as well as acute renal insufficiency.Transferred to floor 04/16/2021; has been hemodynamically stable but essentially nonverbal.? TLC/Feeding tube removed. Took spoonfuls of H2o without issue; intermittently taking pills in pudding, o2 requirements have been increasing over last few days acute hypoxic respiratory failure due to covid pneumonia complicated by SUDEEP and metabolic encephalopathy Awake alert, no respiratory distress oxygen requirement unchanged still requiring high-flow oxygen and 100% non-rebreather mask unable to wean oxygenation drops with eating and minimal activity status post intubation, has received Decadron,s/p Baricinib ,s/p antibiotics Has been given trials with diuretics for concern for acute on chronic diastolic heart failure but had no change in clinical status repeat chest x-ray 05/01? showed worsening bilateral patchy airspace opacities and slightly increased bilateral pleural effusion Case discussed with Dr. Terrazas he recommend to continue current treatment with IV steroids 40 mg q.8 hours, continue Pepcid, vitamin-C, zinc, cough medication Continue supportive care and gradually wean oxygen as tolerated, recommended frequent position change Spoke with patient's daughter Lillie Mcclendon HCP at bedside explained current clinical condition with high risk for re-intubation and difficulty to wean off of Vent, she agreed for do not intubate but wishes to attempt resuscitation Therefore will change code status to do not intubate. SUDEEP resolved creatinine 2.41 on admission, now 0.5 metabolic Encephalopathy; ICU delerium, resolved dysphagia Continue Ensure t.i.d. , continue pureed diet and thin liquids since patient noted to be coughing with mechanical diet, Family declined G-tube, family to make frequent visits and assist in feedings DMII bs in 200s likely due to high-dose steroids will cont. Lantus and increase dosage of insulin sliding scale monitor poc closely hypokalemia, hypomagnesemia Repleted and normalized Hyperlipidemia continue Lipitor Hypertension blood pressure is stable continue Coreg Depression continue ability dvt prophylaxis - lovenox Quality Stroke Does the patient have a stroke diagnosis?: No VTE Prior VTE?: No VTE Risk Level:: Medical - moderate - high VTE Device Contraindication: Treatment Not Indicated VTE Drug Contraindication: N/A - Med Ordered
[2021-05-03 16:28] LABS: Glucose, Whole Blood 402 mg/dL (60-115)
[2021-05-03 20:42] LABS: Glucose, Whole Blood 270 mg/dL (60-115)
[2021-05-04] VITALS (17 sets, daily range): BP systolic 98–147; BP diastolic 54–68; PULSE 76–98; RESP 18–42; TEMP 36.1–37.1; O2SAT 92–98
[2021-05-04] MEDS: methylPREDNISolone Sod Succ 125 MG/2 ML VIAL 40 MG IVPUSH ×3 (04:18→21:19)
--- NOTE | 2021-05-04 06:40 | P.EN_ITS ---
Event Note Date of Service: 05/04/21 Event Note: became hypoxic on 100% high flow and nrb sating 86%. pt also tachy cardic. She is also complaining of pain. given dilaudid found to also have urinary retention will order Cxr. straight cath
--- NOTE | 2021-05-04 06:53 | PC.NURSE ---
at approximately 0615 pt awoke with 7/10 pain to upper torso, c/o shortness of breath and sats dropped to 82% rr 42 while of 100%/ 55L HF and 100% NRB. Respiratory to bedside, MD notified. 0.5 mg dilauded ordered. stat chest xray ordered. Fine crackles to lungs increased, pt had very little output for 8/10 hours through purewick. bladder scanned and had 385 in bladder. order to straight cath. removed 500cc yellow urine. aware. pt resting comfortably, o2 is now sitting at 97% will continue to closely monitor
[2021-05-04] MEDS: HYDROmorphone HCl 0.5 MG/0.5 ML SYRINGE IVPUSH (06:59)
[2021-05-04 07:29] LABS: Glucose, Whole Blood 267 mg/dL (60-115)
[2021-05-04] MEDS: Enoxaparin Sodium 40 MG/0.4 ML SYRINGE SUBCUT (08:42)
[2021-05-04] MEDS: Insulin Lispro 100 UNIT/ML 3 ML VIAL SUBCUT ×4 (08:42→21:19)
[2021-05-04] MEDS: 0.9 % Sodium Chloride Flush 3 ML SYRINGE IVFLUSH ×6 (08:43→22:38)
[2021-05-04] MEDS: Insulin Glargine,Hum.rec.anlog 100 UNIT/ML 10 ML VIAL 12 UNIT SUBCUT ×2 (08:43→21:20)
[2021-05-04] MEDS: ARIPiprazole 2 MG TABLET PO (08:44)
[2021-05-04] MEDS: Cholecalciferol (Vitamin D3) 25 MCG TABLET 50 MCG PO (08:44)
[2021-05-04] MEDS: Thiamine HCL 100 MG TABLET 200 MG PO ×2 (08:44→21:20)
[2021-05-04] MEDS: Aspirin 325 MG TABLET PO (08:44)
[2021-05-04] MEDS: carvediloL 12.5 MG TABLET 25 MG PO ×2 (08:44→21:20)
[2021-05-04] MEDS: Ascorbic Acid 500 MG TABLET PO (08:45)
[2021-05-04] MEDS: Famotidine 20 MG TABLET PO ×2 (08:45→21:20)
[2021-05-04] MEDS: Acyclovir 5 % Oint 15 GM TUBE TOPICAL (08:45)
[2021-05-04] MEDS: Atorvastatin Calcium 40 MG TABLET PO (08:45)
[2021-05-04 11:32] LABS: Glucose, Whole Blood 294 mg/dL (60-115)
--- NOTE | 2021-05-04 14:24 | P.PNIM_ITS ---
Subjective Subjective Date of Service: 05/04/21 Interval History: Patient being followed for hypoxic respiratory failure due to COVID-19, no change in clinical status persistent shortness breath, no cough no chest pain, daughter at bedside patient moved to non isolation room. Is still requiring maximum oxygen both high-flow and non-rebreather breather 100 % , events from last night reviewed patient desaturated, treated with Dilaudid, chest x-ray obtained. Review of Systems General no headache, no dizziness, no fever chills.? CVS no chest pain, no palpitation.? Respiratory no cough, + sob Gastrointestinal no nausea, no vomiting, no abdominal pain Review of Systems: Yes all other systems are reviewed and are negative Physical Exam Vital Signs: Vital Signs: Last Vital Signs Temp 97.6 F 05/04/21 12:00 Pulse 98 05/04/21 12:00 Resp 22 H 05/04/21 12:00 BP 122/56 L 05/04/21 12:00 Pulse Ox 94 05/04/21 12:00 Body Mass Index 30.5 General:? Awake alert answering questions appropriately , no acute distress Resp:? Lungs clear to auscultation, bibasilar dry crackles rt> left, no accessory muscles use CVS: S1,S2,RRR GI: soft, non tender, non distended, bowel sounds audible Extremities no edema Skin no rash Neuro:? motorgrossly intact, alert Psych appropriate affect Objective Data Active Medications Acetaminophen (Acetaminophen 325 Mg Tablet) 650 mg PO Q6H PRN PRN Reason: Fever Last Admin: 05/03/21 08:47 Dose: 650 mg Documented by: TONI Acyclovir (Acyclovir 5 % Oint 15 Gm Tube) 1 gm TOPICAL TID [facility] Last Admin: 05/04/21 08:45 Dose: 1 gm Documented by: TONI Aripiprazole (Aripiprazole 2 Mg Tablet) 2 mg PO DAILY [facility] Last Admin: 05/04/21 08:44 Dose: 2 mg Documented by: TONI Artificial Tears (Artificial Tears 15 Ml Drops) 1 drop EYE-BOTH Q4H PRN PRN Reason: Dry Eyes Ascorbic Acid (Ascorbic Acid 500 Mg Tablet) 500 mg PO DAILY [facility] Last Admin: 05/04/21 08:45 Dose: 500 mg Documented by: TONI Aspirin (Aspirin 325 Mg Tablet) 325 mg PO DAILY [facility] Last Admin: 05/04/21 08:44 Dose: 325 mg Documented by: TONI Atorvastatin Calcium (Atorvastatin Calcium 40 Mg Tablet) 40 mg PO DAILY@0900 [facility] Last Admin: 05/04/21 08:45 Dose: 40 mg Documented by: TONI Carvedilol (Carvedilol 12.5 Mg Tablet) 25 mg PO BID [facility]; Protocol Last Admin: 05/04/21 08:44 Dose: 25 mg Documented by: TONI Enoxaparin Sodium (Enoxaparin Sodium 40 Mg/0.4 Ml Syringe) 40 mg SUBCUT DAILY [facility] Last Admin: 05/04/21 08:42 Dose: 40 mg Documented by: TONI Famotidine (Famotidine 20 Mg Tablet) 20 mg PO BID [facility] Last Admin: 05/04/21 08:45 Dose: 20 mg Documented by: TONI Insulin Glargine (Insulin Glargine,Hum.Rec.Anlog 100 Unit/Ml 10 Ml Vial) 12 unit SUBCUT BID [facility] Last Admin: 05/04/21 08:43 Dose: 12 unit Documented by: TONI Insulin Human Lispro (Insulin Lispro 100 Unit/Ml 3 Ml Vial) 0 unit SUBCUT QIDAC HS [facility]; Protocol Last Admin: 05/04/21 11:46 Dose: 10 unit Documented by: TONI Methylprednisolone Sodium Succinate (Methylprednisolone Sod Succ 125 Mg/2 Ml Vial) 40 mg IVPUSH Q8H [facility] Last Admin: 05/04/21 04:18 Dose: 40 mg Documented by: HARDIK Pharmacy Consult (Consult Rx Perform Med Rec) 1 each MISCELLANE ONCE PRN PRN Reason: Consult order Sodium Chloride (0.9 % Sodium Chloride Flush 3 Ml Syringe) 3 ml IVFLUSH QSHIFT [facility] Last Admin: 05/04/21 08:43 Dose: 3 ml Documented by: TONI Sodium Chloride (0.9 % Sodium Chloride Flush 3 Ml Syringe) [facility] Last Admin: 05/04/21 08:45 Dose: 3 ml Documented by: TONI Thiamine HCl (Thiamine Hcl 100 Mg Tablet) 200 mg PO BID [facility] Last Admin: 05/04/21 08:44 Dose: 200 mg Documented by: TONI Vitamin D (Cholecalciferol (Vitamin D3) 25 Mcg Tablet) 50 mcg PO DAILY [facility] Last Admin: 05/04/21 08:44 Dose: 50 mcg Documented by: TONI Labs CBC & Chem 7: 04/30/21 06:59 05/02/21 21:59 Labs: Laboratory Results - last 24 hr 05/03/21 05/03/21 05/04/21 16:17 20:20 07:23 POC Glucose 402 H* 270 H 267 H 05/04/21 11:15 POC Glucose 294 H Assessment and Plan (1) Generalized anxiety disorder: Status: Acute (2) Major depression: Status: Acute (3) Pneumonia due to COVID-19 virus: Status: Acute (4) Respiratory failure with hypoxia: Status: Acute Assessment and Plan: 65-year-old moderately obese type 2 diabetic female who was vaccinated but was COVID-19 positive for the pneumonitis/ARDS and acute hypoxemic respiratory failure and encephalopathy as well as acute renal insufficiency.Transferred to floor 04/16/2021; has been hemodynamically stable but essentially nonverbal.? TLC/Feeding tube removed. Took spoonfuls of H2o without issue; intermittently taking pills in pudding, o2 requirements have been increasing over last few days acute hypoxic respiratory failure due to covid pneumonia complicated by SUDEEP and metabolic encephalopathy Awake alert, no respiratory distress oxygen requirement unchanged still requiring high-flow oxygen and 100% non-rebreather mask, desaturated overnight Failed to wean oxygen despite multiple attempts status post intubation, has received Decadron,s/p Baricinib ,s/p antibiotics Has been given trials with diuretics for concern for acute on chronic diastolic heart failure but had no change in clinical status repeat chest x-ray 05/01? showed worsening bilateral patchy airspace opacities and slightly increased bilateral pleural effusion Feet chest x-ray 05/03 shows some improvement Case discussed with Dr. Terrazas he recommend to continue current treatment with IV steroids 40 mg q.8 hours, continue Pepcid, vitamin-C, zinc, cough medication Continue supportive care and gradually wean oxygen as tolerated, recommended frequent position change Spoke with patient's daughter Lillie Mcclendon HCP at bedside explained current clinical condition with high risk for re-intubation and difficulty to wean off of Vent, she agreed for do not intubate but wishes to attempt resuscitation Will add as needed hydromorphone for respiratory distress, since patient has allergy to morphine SUDEEP resolved creatinine 2.41 on admission, now normalized, elevated bicarb,will follow metabolic Encephalopathy; ICU delerium, resolved dysphagia Continue Ensure t.i.d. , continue pureed diet and thin liquids since patient noted to be coughing with mechanical diet, Family declined G-tube, family to make frequent visits and assist in feedings DMII bs elevated likely due to high-dose steroids will cont. Lantus 12u and increase dosage of? insulin sliding scale monitor poc closely, will reoccur adjust dose of insulin sliding scale once steroids are being tapered hypokalemia, hypomagnesemia Repleted mildly low potassium will give 40 mEq and follow labs Hyperlipidemia continue Lipitor Hypertension blood pressure is stable continue Coreg Depression continue ability dvt prophylaxis - lovenox Quality Stroke Does the patient have a stroke diagnosis?: No VTE Prior VTE?: No VTE Risk Level:: Medical - moderate - high VTE Device Contraindication: Treatment Not Indicated VTE Drug Contraindication: N/A - Med Ordered
[2021-05-04] MEDS: Potassium Chloride ER 20 MEQ TAB.ER.PRT 40 MEQ PO (14:58)
[2021-05-04 16:02] LABS: Glucose, Whole Blood 253 mg/dL (60-115)
[2021-05-04 20:49] LABS: Glucose, Whole Blood 174 mg/dL (60-115)
[2021-05-05] VITALS (15 sets, daily range): BP systolic 105–148; BP diastolic 50–74; PULSE 67–94; RESP 18–30; TEMP 36.2–37.1; O2SAT 91–99; BMI 30.3
[2021-05-05] MEDS: HYDROmorphone HCl 0.5 MG/0.5 ML SYRINGE 0.25 MG IVPUSH (00:23)
[2021-05-05] MEDS: methylPREDNISolone Sod Succ 125 MG/2 ML VIAL 40 MG IVPUSH ×3 (03:54→19:46)
[2021-05-05 07:40] LABS: Glucose, Whole Blood 181 mg/dL (60-115)
[2021-05-05] MEDS: Enoxaparin Sodium 40 MG/0.4 ML SYRINGE SUBCUT (08:23)
[2021-05-05] MEDS: Insulin Lispro 100 UNIT/ML 3 ML VIAL SUBCUT ×4 (08:23→20:15)
[2021-05-05] MEDS: Insulin Glargine,Hum.rec.anlog 100 UNIT/ML 10 ML VIAL 12 UNIT SUBCUT ×2 (08:23→20:39)
[2021-05-05] MEDS: carvediloL 12.5 MG TABLET 25 MG PO ×2 (08:24→19:46)
[2021-05-05] MEDS: Famotidine 20 MG TABLET PO ×2 (08:24→19:46)
[2021-05-05] MEDS: Cholecalciferol (Vitamin D3) 25 MCG TABLET 50 MCG PO (08:24)
[2021-05-05] MEDS: ARIPiprazole 2 MG TABLET PO (08:24)
[2021-05-05] MEDS: Aspirin 325 MG TABLET PO (08:24)
[2021-05-05] MEDS: Thiamine HCL 100 MG TABLET 200 MG PO ×2 (08:24→19:46)
[2021-05-05] MEDS: Ascorbic Acid 500 MG TABLET PO (08:24)
[2021-05-05] MEDS: Atorvastatin Calcium 40 MG TABLET PO (08:24)
[2021-05-05] MEDS: 0.9 % Sodium Chloride Flush 3 ML SYRINGE IVFLUSH ×4 (08:25→19:47)
[2021-05-05 11:19] LABS: Glucose, Whole Blood 264 mg/dL (60-115)
--- NOTE | 2021-05-05 11:31 | MHC.CLN ---
F/U PT CONTINUES WITH VARIABLE PO DIET RX: PUREED-APPROPRIATE PT RECEIVING ENSURE TID TO INCREASE [facility] PROVIDES 1050KCALS, 39G PROTEIN CURRENT WT 154.8# FAMILY PLANS TO ASSIST WITH FEEDING PT DURING MEALS; NO GTUBE PER FAMILY AND PT WISHES CONTINUE TO MONITOR PO INTAKE AND WEEKLY WEIGHTS
--- NOTE | 2021-05-05 12:54 | HO.PM.IMPN ---
Subjective Subjective Date of Service: 05/05/21 Interval History: Patient being followed for hypoxic respiratory failure due to COVID-19, no change in clinical status persistent shortness breath, no cough no chest pain, daughter at bedside, Still on high flow and NRB, unable to wean Review of Systems General no headache, no dizziness, no fever chills.? CVS no chest pain, no palpitation.? Respiratory no cough, + sob Gastrointestinal no nausea, no vomiting, no abdominal pain Physical Exam Vital Signs: Vital Signs: Last Vital Signs Temp 97.2 F 05/05/21 10:53 Pulse 82 05/05/21 10:53 Resp 20 05/05/21 11:17 BP 105/50 L 05/05/21 10:53 Pulse Ox 97 05/05/21 10:53 Body Mass Index 30.3 Const: Other: ?General:? Awake alert answering questions appropriately , no acute distress Resp:? Lungs clear to auscultation, bibasilar dry crackles rt> left, no accessory muscles use CVS: S1,S2,RRR GI: soft, non tender, non distended, bowel sounds audible Extremities no edema Skin no rash Neuro:? motorgrossly intact, alert Psych appropriate affect Objective Data Active Medications Acetaminophen (Acetaminophen 325 Mg Tablet) 650 mg PO Q6H PRN PRN Reason: Fever Last Admin: 05/03/21 08:47 Dose: 650 mg Documented by: TONI Acyclovir (Acyclovir 5 % Oint 15 Gm Tube) 1 gm TOPICAL TID [facility] Last Admin: 05/05/21 08:26 Dose: Not Given Documented by: CHRIS Non-Admin Reason: Patient Refused Aripiprazole (Aripiprazole 2 Mg Tablet) 2 mg PO DAILY [facility] Last Admin: 05/05/21 08:24 Dose: 2 mg Documented by: CHRIS Artificial Tears (Artificial Tears 15 Ml Drops) 1 drop EYE-BOTH Q4H PRN PRN Reason: Dry Eyes Ascorbic Acid (Ascorbic Acid 500 Mg Tablet) 500 mg PO DAILY [facility] Last Admin: 05/05/21 08:24 Dose: 500 mg Documented by: CHRIS Aspirin (Aspirin 325 Mg Tablet) 325 mg PO DAILY [facility] Last Admin: 05/05/21 08:24 Dose: 325 mg Documented by: CHRIS Atorvastatin Calcium (Atorvastatin Calcium 40 Mg Tablet) 40 mg PO DAILY@0900 [facility] Last Admin: 05/05/21 08:24 Dose: 40 mg Documented by: CHRIS Carvedilol (Carvedilol 12.5 Mg Tablet) 25 mg PO BID [facility]; Protocol Last Admin: 05/05/21 08:24 Dose: 25 mg Documented by: CHRIS Enoxaparin Sodium (Enoxaparin Sodium 40 Mg/0.4 Ml Syringe) 40 mg SUBCUT DAILY [facility] Last Admin: 05/05/21 08:23 Dose: 40 mg Documented by: CHRIS Famotidine (Famotidine 20 Mg Tablet) 20 mg PO BID [facility] Last Admin: 05/05/21 08:24 Dose: 20 mg Documented by: CHRIS Hydromorphone HCl (Hydromorphone Hcl 0.5 Mg/0.5 Ml Syringe) 0.25 mg IVPUSH Q4H PRN; Protocol PRN Reason: Shortness of Breath Last Admin: 05/05/21 00:23 Dose: 0.25 mg Documented by: [place] Insulin Glargine (Insulin Glargine,Hum.Rec.Anlog 100 Unit/Ml 10 Ml Vial) 12 unit SUBCUT BID [facility] Last Admin: 05/05/21 08:23 Dose: 12 unit Documented by: CHRIS Insulin Human Lispro (Insulin Lispro 100 Unit/Ml 3 Ml Vial) 0 unit SUBCUT QIDACHS [facility]; Protocol Last Admin: 05/05/21 11:39 Dose: 10 unit Documented by: CHRIS Methylprednisolone Sodium Succinate (Methylprednisolone Sod Succ 125 Mg/2 Ml Vial) 40 mg IVPUSH Q8H [facility] Last Admin: 05/05/21 11:39 Dose: 40 mg Documented by: CHRIS Pharmacy Consult (Consult Rx Perform Med Rec) 1 each MISCELLANE ONCE PRN PRN Reason: Consult order Sodium Chloride (0.9 % Sodium Chloride Flush 3 Ml Syringe) 3 ml IVFLUSH [facility] Last Admin: 05/05/21 08:25 Dose: 3 ml Documented by: CHRIS Sodium Chloride (0.9 % Sodium Chloride Flush 3 Ml Syringe) 3 ml IVFLUSH [facility] Last Admin: 05/05/21 08:25 Dose: Not Given Documented by: CHRIS Non-Admin Reason: Duplicate Order Thiamine HCl (Thiamine Hcl 100 Mg Tablet) 200 mg PO BID [facility] Last Admin: 05/05/21 08:24 Dose: 200 mg Documented by: CHRIS Vitamin D (Cholecalciferol (Vitamin D3) 25 Mcg Tablet) 50 mcg PO DAILY [facility] Last Admin: 05/05/21 08:24 Dose: 50 mcg Documented by: CHRIS Labs CBC & Chem 7: 04/30/21 06:59 05/02/21 21:59 Labs: Laboratory Results - last 24 hr 05/04/21 05/04/21 05/05/21 15:22 20:29 07:06 POC Glucose 253 H 174 H 181 H 05/05/21 10:54 POC Glucose 264 H Assessment and Plan (1) Generalized anxiety disorder: Status: Acute (2) Major depression: Status: Acute (3) Pneumonia due to COVID-19 virus: Status: Acute (4) Respiratory failure with hypoxia: Status: Acute Assessment and Plan: 65-year-old moderately obese type 2 diabetic female who was vaccinated but was COVID-19 positive for the pneumonitis/ARDS and acute hypoxemic respiratory failure and encephalopathy as well as acute renal insufficiency.Transferred to floor 04/16/2021; has been hemodynamically stable but essentially nonverbal.? TLC/Feeding tube removed. Took spoonfuls of H2o without issue; intermittently taking pills in pudding, o2 requirements have been increasing over last few days acute hypoxic respiratory failure due to covid pneumonia complicated by SUDEEP and metabolic encephalopathy Awake alert, no respiratory distress oxygen requirement unchanged still requiring high-flow oxygen and 100% non-rebreather mask, Failed to wean oxygen despite multiple attempts status post intubation, has received Decadron,s/p Baricinib ,s/p antibiotics Has been given trials with diuretics for concern for acute on chronic diastolic heart failure but had no change in clinical status repeat chest x-ray 05/01? showed worsening bilateral patchy airspace opacities and slightly increased bilateral pleural effusion Feet chest x-ray 05/[address] Terrazas he recommend to continue current treatment with IV steroids 40 mg q.8 hours, continue Pepcid, vitamin-C, zinc, cough medication Continue supportive care and gradually wean oxygen as tolerated, recommended frequent position change Amrik Mcclendon HCP at bedside explained current clinical condition with high risk for re-intubation and difficulty to wean off of Vent, she agreed for do not intubate but wishes to attempt resuscitation hydromorphone for respiratory distress, since patient has allergy to morphine SUDEEP resolved creatinine 2.41 on admission, now normalized, elevated bicarb,will follow metabolic Encephalopathy; ICU delerium, resolved dysphagia Continue Ensure t.i.d. , continue pureed diet and thin liquids since patient noted to be coughing with mechanical diet, Family declined G-tube, family to make frequent visits and assist in feedings DMII bs elevated likely due to high-dose steroids will cont. Increase Lantus to 15 u and continue sliding scale monitor poc closely, will reoccur adjust dose of insulin sliding scale once steroids are being tapered hypokalemia, hypomagnesemia--repleted, rehceck in AM Hyperlipidemia continue Lipitor Hypertension blood pressure is stable continue Coreg Depression continue ability dvt prophylaxis - lovenox Quality Stroke Does the patient have a stroke diagnosis?: No VTE Prior VTE?: No VTE Risk Level:: Medical - moderate - high VTE Device Contraindication: Treatment Not Indicated VTE Drug Contraindication: N/A - Med Ordered
--- NOTE | 2021-05-05 15:29 | MHC.SL.DTX ---
Dysphagia Diet modifications: Last documented Solid diet consistencies: Chopped/Advanced (NDD3) Last documented Liquid consistency: Thin Last documented Medication Administration:NPO Changes made to current diet?: Yes: DOWNGRADE Liquid Consistency and Strategies: Liquid Intake Recommendation: Thin Compensatory Strategies for Safe Swallow: Small Sips Compensatory Strategies for Safe Swallow(b): Sitting Upright (90 deg) Small Bites and Sips Alternate Liquids/Solids Rate of Ingestion Change Oral Check Solid Food Consistency: Dietary Recommendations: Pureed (NDD1) Additional Modifications to Solids: Oral Medication Intake: Crushed with Puree Strategies and Precautions to be Taken for Safe Swallow: Sitting Upright (90 deg) Small Bites and Sips Alternate Liquids/Solids Rate of Ingestion Change Oral Check Supervision While Eating and/Drinking: Total Assistance Foods to Avoid: Swallowing Recommended Treatments: Compens. Strategy Educat. Level of Impact on: Daily activities: Moderate Interpersonal interactions: Education: Employment: Community: Moderate Prognosis for Improvement: Fair Recommendation for Speech: Comment: Patient was seen for bedside dysphagia evaluation on 04/15/21. Patient was intubated 03/29/21 - 04/11/21. Patient was extubated to high flow nasal cannula successfully. Patient failed nursing swallow screenings on 04/11 and 04/12. Per RN report, patient requires suctioning and has weak cough. Patient presented with dried secretions on lips and tongue. Patient was provided with oral care with mouthwash and swab. No swallow with mouthwash, but noted gurgly throat sound. Patient was asked to initiate volitional swallow. Patient attempted swallow and this appeared effortful. However, upon palpation, no laryngeal elevation. Patient was asked to produce cough. Patient has extremely weak cough. Patient would not be able to protect airway. No PO trials administered due to patient's need for suctioning, absent swallow trigger, and extremely weak cough. 04/16/21- Patient declined PO trials. Patient as unable/unwilling to elicit volitional dry swallow at that time. RN yesterday reported severe motor weakness and liquid spilled from oral cavity when screening was attempted. Patient continues to receive KO feeds via right nare. Her chest x-ray on 04/16 showed, unchanged multifocal airspace disease the lungs compared with 04/12/21. 04/17/21- Patient was seen by Nepali-speaking TELECOMMUNICATIONS REPAIRER. Patient followed command for volitional dry swallow. Dry swallow was delayed and appeared effortful. Note significantly reduced laryngeal elevation. When given trace water, note complete anterior spillage. Patient then refused, becoming tearful. 04/21/21- RN reports patient continues to refuse PO. Per RN, patient was not appropriate for PO trials this date. TELECOMMUNICATIONS REPAIRER checked in with Dr. Hernandez. TELECOMMUNICATIONS REPAIRER recommended NPO status last week 04/15, 04/17, 04/18. TELECOMMUNICATIONS REPAIRER updated MD on observations made last week- extremely weak cough, delayed/effortful dry swallow, anterior loss of water, refusal to participate in dysphagia treatment. Per MD, diet order was changed to ground/mechanically altered diet in hopes patient would do better without NGT. 04/22/21-RN reports that patient continues to refuse PO and spits out her medications. TELECOMMUNICATIONS REPAIRER. Patient was able to swallow on command x2 times. Dry swallow was significantly delayed and laryngeal elevation incomplete. Patient accepted trace amount of water. Note delayed swallow and no overt s/s of aspiration on trace amount water. Patient was offered different food and drink items, but refused all PO. Patient turned her face away, refused to open her mouth, and became tearful. Frequency/Duration: Date Range for Service Req: Timeline to reassess: Additional Comments: Treatment: Patient is on CHOPPED/ADVANCED solids (NDD3) and THIN liquids prior to our treatment session. Pt was seated upright in bed with daughter present at bedside. Daughter reported that Pt ate breakfast of chopped egg/sausage this morning and tolerated well. Pt. was sleeping but easily roused. Nurse reported that oxygen mask could be removed for swallow trials this morning and tolerated this well. Pt was presented with teaspoon trials of apple juice. Some spillage from mouth due to incomplete oral closure on spoon was noted. Mild delay of oral phase, with pharyngeal/laryngeal phase of swallow WNL. When asked to vocalize, Pt produced weak/aphonic vocalization. Voluntary cough also weak, unproductive. Pt given spoonful trials of puree consistency with mild delay of oral phase, pharyngeal/laryngeal phase WNL. Oral cavity cleared well after swallow. O2 Sats rebounded to 90% range quickly after O2 mask replaced. Assessment: Pt tolerating current diet recommendation well, no evidence/signs of aspiration on trials with lab intern, and by report, increased oral intake of food this morning. Soil Conservation Teacher Clinican/Clinical Fellow: No Supervisory Statement: I have reviewed and agree with the student/clinical fellow's documentation: N/A Speech Language Pathologist: Ksenia Singh M.A., CCC-TELECOMMUNICATIONS REPAIRER
[2021-05-05 16:04] LABS: Glucose, Whole Blood 171 mg/dL (60-115)
--- NOTE | 2021-05-05 16:40 | MHC.SL.SWA ---
Speech Pathologist Impression: Risk of Aspiration Oralpharyngeal Dysphagia Risk of Aspiration Due to: Lethargy Medically Fragile History of Pneumonia Hx of Recent Extubation Weak Cough Weak Voice Dysphasia Diet Status: No Change Liquid Consistency and Strategies for Safe Swallow: Liquid Intake Recommendation: Thin Liquid Intake Strategies: Small Sips Solid Food Consistency: Dietary Recommendations: Pureed (NDD1) Additional Modifications to Solid Foods: Oral Medication Intake: Crushed with Puree Compensatory Strategies and Precautions to be Taken for Safe Swallow: Sitting Upright (90 deg) Small Bites and Sips Alternate Liquids/Solids Rate of Ingestion Change Oral Check Supervision While Eating and Drinking for Safe Swallow: Total Assistance Foods to Avoid: Swallowing Recommended Treatments: Compens. Strategy Educat. Recommendation for Speech: Continue with current diet. Continue to see daily for swallow trials/dysphagia Tx Health Analyst Clinican/Clinical Fellow: No Supervisory Statement: I have reviewed and agree with the student/clinical fellow's documentation: N/A Speech Language Pathologist: Ksenia Singh M.A., CCC-SUPPLIER QUALITY MANAGER
[2021-05-05 20:06] LABS: Glucose, Whole Blood 215 mg/dL (60-115)
[2021-05-06] VITALS (14 sets, daily range): BP systolic 100–152; BP diastolic 50–77; PULSE 83–106; RESP 16–40; TEMP 35.9–37.2; O2SAT 88–95; BMI 30.4
[2021-05-06] MEDS: HYDROmorphone HCl 0.5 MG/0.5 ML SYRINGE 0.25 MG IVPUSH (03:31)
[2021-05-06] MEDS: methylPREDNISolone Sod Succ 125 MG/2 ML VIAL 40 MG IVPUSH ×3 (03:31→20:40)
[2021-05-06 07:38] LABS: Glucose, Whole Blood 151 mg/dL (60-115)
[2021-05-06] MEDS: Insulin Lispro 100 UNIT/ML 3 ML VIAL SUBCUT ×2 (07:52→12:17)
[2021-05-06] MEDS: 0.9 % Sodium Chloride Flush 3 ML SYRINGE IVFLUSH ×4 (07:58→17:42)
[2021-05-06] MEDS: Thiamine HCL 100 MG TABLET 200 MG PO (10:03)
[2021-05-06] MEDS: Aspirin 325 MG TABLET PO (10:03)
[2021-05-06] MEDS: carvediloL 12.5 MG TABLET 25 MG PO ×2 (10:03→20:40)
[2021-05-06] MEDS: ARIPiprazole 2 MG TABLET PO (10:04)
[2021-05-06] MEDS: Ascorbic Acid 500 MG TABLET PO (10:04)
[2021-05-06] MEDS: Enoxaparin Sodium 40 MG/0.4 ML SYRINGE SUBCUT (10:05)
[2021-05-06] MEDS: Cholecalciferol (Vitamin D3) 25 MCG TABLET 50 MCG PO (10:05)
[2021-05-06] MEDS: Famotidine 20 MG TABLET PO ×2 (10:05→20:41)
[2021-05-06] MEDS: Insulin Glargine,Hum.rec.anlog 100 UNIT/ML 10 ML VIAL 12 UNIT SUBCUT ×2 (10:05→20:41)
[2021-05-06] MEDS: Atorvastatin Calcium 40 MG TABLET PO (10:05)
[2021-05-06 11:06] LABS: Glucose, Whole Blood 228 mg/dL (60-115)
--- NOTE | 2021-05-06 12:21 | P.PNIM_ITS ---
Subjective Subjective Date of Service: 05/06/21 Interval History: Patient being followed for hypoxic respiratory failure due to COVID-19, no change in clinical status persistent shortness breath, no cough no chest pain, daughter at bedside with no change overnight, eating well Review of Systems General no headache, no dizziness, no fever chills.? CVS no chest pain, no palpitation.? Respiratory no cough, + sob Gastrointestinal no nausea, no vomiting, no abdominal pain Physical Exam Vital Signs: Vital Signs: Last Vital Signs Temp 97.7 F 05/06/21 10:55 Pulse 106 H 05/06/21 10:55 Resp 18 05/06/21 11:34 BP 118/77 05/06/21 10:55 Pulse Ox 89 L 05/06/21 10:55 Body Mass Index 30.4 Const: Other: ?General:? Awake alert answering questions appropriately , no acute distress Resp:? Lungs clear to auscultation, bibasilar dry crackles rt> left, no accessory muscles use CVS: S1,S2,RRR GI: soft, non tender, non distended, bowel sounds audible Extremities no edema Skin no rash Neuro:? motorgrossly intact, alert Psych appropriate affect Objective Data Active Medications Acetaminophen (Acetaminophen 325 Mg Tablet) 650 mg PO Q6H PRN PRN Reason: Fever Last Admin: 05/03/21 08:47 Dose: 650 mg Documented by: TONI Acyclovir (Acyclovir 5 % Oint 15 Gm Tube) 1 gm TOPICAL TID [facility] Last Admin: 05/06/21 10:06 Dose: Not Given Documented by: MARY Non-Admin Reason: Patient Refused Aripiprazole (Aripiprazole 2 Mg Tablet) 2 mg PO DAILY [facility] Last Admin: 05/06/21 10:04 Dose: 2 mg Documented by: MARY Artificial Tears (Artificial Tears 15 Ml Drops) 1 drop EYE-BOTH Q4H PRN PRN Reason: Dry Eyes Ascorbic Acid (Ascorbic Acid 500 Mg Tablet) 500 mg PO DAILY [facility] Last Admin: 05/06/21 10:04 Dose: 500 mg Documented by: MARY Aspirin (Aspirin 325 Mg Tablet) 325 mg PO DAILY [facility] Last Admin: 05/06/21 10:03 Dose: 325 mg Documented by: MARY Atorvastatin Calcium (Atorvastatin Calcium 40 Mg Tablet) 40 mg PO DAILY@0900 [facility] Last Admin: 05/06/21 10:05 Dose: 40 mg Documented by: MARY Carvedilol (Carvedilol 12.5 Mg Tablet) 25 mg PO BID [facility]; Protocol Last Admin: 05/06/21 10:03 Dose: 25 mg Documented by: MARY Enoxaparin Sodium (Enoxaparin Sodium 40 Mg/0.4 Ml Syringe) 40 mg SUBCUT DAILY [facility] Last Admin: 05/06/21 10:05 Dose: 40 mg Documented by: MARY Famotidine (Famotidine 20 Mg Tablet) 20 mg PO BID [facility] Last Admin: 05/06/21 10:05 Dose: 20 mg Documented by: MARY Hydromorphone HCl (Hydromorphone Hcl 0.5 Mg/0.5 Ml Syringe) 0.25 mg IVPUSH Q4H PRN; Protocol PRN Reason: Shortness of Breath Last Admin: 05/06/21 03:31 Dose: 0.25 mg Documented by: BRIANNE Insulin Glargine (Insulin Glargine,Hum.Rec.Anlog 100 Unit/Ml 10 Ml Vial) 12 unit SUBCUT BID [facility] Last Admin: 05/06/21 10:05 Dose: 12 unit Documented by: MAYR Insulin Human Lispro (Insulin Lispro 100 Unit/Ml 3 Ml Vial) 0 unit SUBCUT QIDACHS [facility]; Protocol Last Admin: 05/06/21 12:17 Dose: 8 unit Documented by: REHANA Methylprednisolone Sodium Succinate (Methylprednisolone Sod Succ 125 Mg/2 Ml Vial) 40 mg IVPUSH Q8H [facility] Last Admin: 05/06/21 12:17 Dose: 40 mg Documented by: REHANA Pharmacy Consult (Consult Rx Perform Med Rec) 1 each MISCELLANE ONCE PRN PRN Reason: Consult order Sodium Chloride (0.9 % Sodium Chloride Flush 3 Ml Syringe) [facility] Last Admin: 05/06/21 10:06 Dose: 3 ml Documented by: MARY Sodium Chloride (0.9 % Sodium Chloride Flush 3 Ml Syringe) 3 [facility] Last Admin: 05/06/21 10:06 Dose: 3 ml Documented by: MARY Thiamine HCl (Thiamine Hcl 100 Mg Tablet) 200 mg PO BID [facility] Last Admin: 05/06/21 10:03 Dose: 200 mg Documented by: MARY Vitamin D (Cholecalciferol (Vitamin D3) 25 Mcg Tablet) 50 mcg PO DAILY [facility] Last Admin: 05/06/21 10:05 Dose: 50 mcg Documented by: MARY Labs CBC & Chem 7: 04/30/21 06:59 05/02/21 21:59 Labs: Laboratory Results - last 24 hr 05/05/21 05/05/21 05/06/21 15:17 19:56 07:30 POC Glucose 171 H 215 H 151 H 05/06/21 10:51 POC Glucose 228 H Assessment and Plan (1) Generalized anxiety disorder: Status: Acute (2) Major depression: Status: Acute (3) Pneumonia due to COVID-19 virus: Status: Acute (4) Respiratory failure with hypoxia: Status: Acute Assessment and Plan: 65-year-old moderately obese type 2 diabetic female who was vaccinated but was COVID-19 positive for the pneumonitis/ARDS and acute hypoxemic respiratory failu re and encephalopathy as well as acute renal insufficiency.Transferred to floor 04/16/2021; has been hemodynamically stable but essentially nonverbal.? TLC/Feeding tube removed. Took spoonfuls of H2o without issue; intermittently taking pills in pudding, o2 requirements have been increasing over last few days acute hypoxic respiratory failure due to covid pneumonia complicated by SUDEEP and metabolic encephalopathy Awake alert, no respiratory distress oxygen requirement unchanged still requiring high-flow oxygen and 100% non-rebreather mask Failed to wean oxygen despite multiple attempts, the goal remains to be able to wean to a reasonable amount of oxygen and be able to go to rehab status post intubation, has received Decadron,s/p Baricinib ,s/p antibiotics Has been given trials with diuretics for concern for acute on chronic diastolic heart failure but had no change in clinical status repeat chest x-ray 05/01? showed worsening bilateral patchy airspace opacities and slightly increased bilateral pleural effusion Feet chest x-ray 05/[address] Terrazas he recommend to continue current treatment with IV steroids 40 mg q.8 hours, continue Pepcid, vitamin-C, zinc, cough medication Continue supportive care and gradually wean oxygen as tolerated, recommended frequent position change Daughter Lillie Mcclendon HCP at bedside explained current clinical condition with high risk for re-intubation and difficulty to wean off of Vent, she agreed for do not intubate but wishes to attempt resuscitation hydromorphone for respiratory distress, since patient has allergy to morphine SUDEEP resolved creatinine 2.41 on admission, now normalized, elevated bicarb,will follow metabolic Encephalopathy; ICU delerium, resolved dysphagia Continue Ensure t.i.d. , continue pureed diet and thin liquids since patient noted to be coughing with mechanical diet, Family declined G-tube, family to make frequent visits and assist in feedings DMII bs elevated likely due to high-dose steroids will cont. Increase Lantus to 15 u and continue sliding scale monitor poc closely, will reoccur adjust dose of insulin sliding scale once steroids are being tapered hypokalemia, hypomagnesemia--repleted, rehceck in AM Hyperlipidemia continue Lipitor Hypertension blood pressure is stable continue Coreg Depression continue ability dvt prophylaxis - lovenox Quality Stroke Does the patient have a stroke diagnosis?: No VTE Prior VTE?: No VTE Risk Level:: Medical - moderate - high VTE Device Contraindication: Treatment Not Indicated VTE Drug Contraindication: N/A - Med Ordered
--- NOTE | 2021-05-06 13:55 | MHC.SL.SWA ---
Speech Pathologist Impression: Risk of Aspiration Oralpharyngeal Dysphagia Risk of Aspiration Due to: Lethargy Medically Fragile History of Pneumonia Hx of Recent Extubation Weak Cough Weak Voice Dysphasia Diet Status: No Change Liquid Consistency and Strategies for Safe Swallow: Liquid Intake Recommendation: Thin Liquid Intake Strategies: Small Sips Solid Food Consistency: Dietary Recommendations: Pureed (NDD1) Additional Modifications to Solid Foods: Oral Medication Intake: Crushed with Puree Compensatory Strategies and Precautions to be Taken for Safe Swallow: Sitting Upright (90 deg) Small Bites and Sips Alternate Liquids/Solids Rate of Ingestion Change Oral Check Supervision While Eating and Drinking for Safe Swallow: Total Assistance Foods to Avoid: Swallowing Recommended Treatments: Compens. Strategy Educat. Recommendation for Speech: Comment: Patient was seen for bedside dysphagia evaluation on 04/15/21. Patient was intubated 03/29/21 - 04/11/21. Patient was extubated to high flow nasal cannula successfully. Patient failed nursing swallow screenings on 04/11 and 04/12. Per RN report, patient requires suctioning and has weak cough. Patient presented with dried secretions on lips and tongue. Patient was provided with oral care with mouthwash and swab. No swallow with mouthwash, but noted gurgly throat sound. Patient was asked to initiate volitional swallow. Patient attempted swallow and this appeared effortful. However, upon palpation, no laryngeal elevation. Patient was asked to produce cough. Patient has extremely weak cough. Patient would not be able to protect airway. No PO trials administered due to patient's need for suctioning, absent swallow trigger, and extremely weak cough. 04/16/21- Patient declined PO trials. Patient as unable/unwilling to elicit volitional dry swallow at that time. RN yesterday reported severe motor weakness and liquid spilled from oral cavity when screening was attempted. Patient continues to receive KO feeds via right nare. Her chest x-ray on 04/16 showed, unchanged multifocal airspace disease the lungs compared with 04/12/21. 04/17/21- Patient was seen by Kiswahili-speaking STOPPER MAKER HELPER. Patient followed command for volitional dry swallow. Dry swallow was delayed and appeared effortful. Note significantly reduced laryngeal elevation. When given trace water, note complete anterior spillage. Patient then refused, becoming tearful. 04/21/21- RN reports patient continues to refuse PO. Per RN, patient was not appropriate for PO trials this date. STOPPER MAKER HELPER checked in with Dr. Hernandez. STOPPER MAKER HELPER recommended NPO status last week 04/15, 04/17, 04/18. STOPPER MAKER HELPER updated MD on observations made last week- extremely weak cough, delayed/effortful dry swallow, anterior loss of water, refusal to participate in dysphagia treatment. Per MD, diet order was changed to ground/mechanically altered diet in hopes patient would do better without NGT. 04/22/21-RN reports that patient continues to refuse PO and spits out her medications. STOPPER MAKER HELPER. Patient was able to swallow on command x2 times. Dry swallow was significantly delayed and laryngeal elevation incomplete. Patient accepted trace amount of water. Note delayed swallow and no overt s/s of aspiration on trace amount water. Patient was offered different food and drink items, but refused all PO. Patient turned her face away, refused to open her mouth, and became tearful. 05/06/2021 Patient is on Pureed solids (NDD1) and THIN liquids prior to our treatment session. Pt's daughter was present at bedside and reported that Pt. had eaten a little food this morning. Pt. was seated upright in bed, sleeping but easily roused. O2 Mask was removed for trial of food consistencies. After sip of thin liquid, pt. became visibly distressed, weeping. Pt. daughter helped calm. O2 Sats had declined, mask was replaced with O2 rebounding to high 80s. Trial was ended due to engagement of PT in session. Frequency/Duration: Date Range for Service Req: Timeline to reassess: Tooth Cutter Contact Wheel Clinican/Clinical Fellow: No Supervisory Statement: I have reviewed and agree with the student/clinical fellow's documentation: N/A Speech Language Pathologist: Ksenia Singh M.A., [facility]-STOPPER MAKER HELPER
[2021-05-06 16:20] LABS: Glucose, Whole Blood 146 mg/dL (60-115)
[2021-05-06 20:24] LABS: Glucose, Whole Blood 131 mg/dL (60-115)
[2021-05-07] VITALS (10 sets, daily range): BP systolic 94–100; BP diastolic 46–50; PULSE 91–97; RESP 19–48; TEMP 36.4–36.8; O2SAT 81–97
[2021-05-07] MEDS: HYDROmorphone HCl 0.5 MG/0.5 ML SYRINGE 0.25 MG IVPUSH ×2 (00:52→10:23)
[2021-05-07] MEDS: 0.9 % Sodium Chloride Flush 3 ML SYRINGE IVFLUSH ×3 (01:59→09:49)
[2021-05-07] MEDS: methylPREDNISolone Sod Succ 125 MG/2 ML VIAL 40 MG IVPUSH (03:30)
[2021-05-07 07:24] LABS: Glucose, Whole Blood 147 mg/dL (60-115)
[2021-05-07] MEDS: Insulin Glargine,Hum.rec.anlog 100 UNIT/ML 10 ML VIAL 12 UNIT SUBCUT (09:52)
[2021-05-07] MEDS: Enoxaparin Sodium 40 MG/0.4 ML SYRINGE SUBCUT (09:53)
[2021-05-07 11:24] LABS: Glucose, Whole Blood 167 mg/dL (60-115)
--- NOTE | 2021-05-07 11:44 | MHC.SLORD ---
Speech Language Pathology Order Status: Pt's current diet consistency is NDD1 PUREED solids with THIN liquids. Per RN, pt had increased work of breathing this date and was unable to tolerate any breakfast this morning. RN noted that pt blew bubbles in her juice during attempt to drink liquids. Pt's daughter was present when this DINING CAR SERVER arrived to pt's room, where she had high flow O2 in place. Per pt's daughter, unable to remove O2 mask at this time as pt was reported to desat to the 50s. As a result, pt has not been able to eat/drink. RN notified of daughter's report. Pt appeared lethargic. DINING CAR SERVER will continue to follow pt throughout her stay.
--- NOTE | 2021-05-07 11:57 | MHC.CM.PN ---
per rou nds pt continues to require 60 liters of high addis o2 hcp scanned into allscripts
--- NOTE | 2021-05-07 12:14 | PC.NURSE ---
unable to obtain automatic cuff BP. Maual BP left upper arm 68/42. CC and hospitalist made aware; both at bedside. Multiple attempts for IV access (current IV access infiltrated). Successful with 22 guage in R thumb. 1L normal saline bolus infusing. Hospitalist up to assess pt and accepted to ICU after discussion with family/HCP and Dr. Crawford. Will prepare Pt for transport to ICU at this time
--- NOTE | 2021-05-07 12:24 | PM.CCPN ---
Subjective Subjective Date of Service: 05/07/21 Interval History: Mrs. Clemons will be brought down to the ICU with hypotension and acute ventilatory failure. Critical Care Time (minutes): 0 Comment: This note is for informational purposes only (time stamp). No billing should be attached to this note. I have coded this note as a [id number], but there is no billing for this note, all billing for service this day is in my subsequent note later this afternoon. Physical Exam Vital Signs: Vital Signs: Last Vital Signs Temp 97.5 F 05/07/21 12:16 Pulse 95 05/07/21 12:16 Resp 22 H 05/07/21 11:30 BP 97/46 L 05/07/21 07:25 Pulse Ox 91 L 05/07/21 12:16 Body Mass Index 30.4 Objective Data Labs CBC & Chem 7: 04/30/21 06:59 05/02/21 21:59 Labs: Laboratory Results - last 24 hr 05/06/21 05/06/21 05/07/21 16:16 20:17 07:16 POC Glucose 146 H 131 H 147 H 05/07/21 11:14 POC Glucose 167 H Microbiology Microbiology Results: Microbiology 04/12/21 22:59 Blood - Venous Blood Culture - Final No growth after 5 days. 04/12/21 22:59 Blood - Venous Blood Culture - Final No growth after 5 days. 04/12/21 00:00 Urine clean catch - Urine lopez top Urine Culture - Final No growth. 04/09/21 09:42 Blood - Venous Blood Culture - Final No growth after 5 days. 04/09/21 09:32 Blood - Venous Blood Culture - Final No growth after 5 days. 04/09/21 19:50 Sputum - Suctioned Gram Stain - Final 04/09/21 19:50 Sputum - Suctioned Sputum Culture - Final Staphylococcus aureus Acinetobacter baumannii 04/05/21 07:25 Blood - Venous Blood Culture - Final No growth after 5 days. 04/05/21 07:25 Blood - Venous Blood Culture - Final No growth after 5 days. 04/05/21 08:42 Urine Catheterized - Rashid Catheter Urine Culture - Final Preethi glabrata 04/05/21 08:42 Sputum - Suctioned Gram Stain - Final 04/05/21 08:42 Sputum - Suctioned Sputum Culture - Final 04/01/21 14:28 Sputum - Suctioned Gram Stain - Final 04/01/21 14:28 Sputum - Suctioned Sputum Culture - Final Preethi albicans 03/26/21 16:43 Blood - Venous Blood Culture - Final No growth after 5 days. 03/27/21 Unknown Urine Catheterized - Rashid Catheter Urine Culture - Final Escherichia coli 03/26/21 16:43 Blood - Venous Blood Culture - Final Escherichia coli Quality Stroke Does the patient have a stroke diagnosis?: No VTE Prior VTE?: No VTE Risk Level:: Medical - moderate - high VTE Device Contraindication: Treatment Not Indicated VTE Drug Contraindication: N/A - Med Ordered
--- NOTE | 2021-05-07 12:55 | PM.EVENT ---
Event Note Date of Service: 05/07/21 Event Note: Patient became less responsive, hypotensive with non palpable BP, increased work of breathing, Pulse normal, maintain O2 sat with high flow and NRB, normal saline started and discussed with daughter who is inclined not to reintubate and is also ok with no CPR, I discussed ith Dr. Tesfaye who was at the bedside and will take patient to ICU for BP support, proably vasopressors. Etiology of low BP not clear, she will need further evaluation in the ICU to exclude sepsis.
--- NOTE | 2021-05-07 13:47 | MHC.CLN ---
F/U PT WITH POOR PO INTAKE DIET RX: PUREED-APPROPRIATE LEGAL COMPLIANCE OFFICER FOLLOWING FOR DIET CONSISTENCY PT RECEIVING ENSURE TID TO INCREASE KC[facility] PROVIDES 1050KCALS, 39G PROTEIN WITH VARIABLE ACCEPTANCE CURRENT WT 155#; 5% WT LOSS SINCE ADMISSION FAMILY PLANS TO ASSIST WITH FEEDING PT DURING MEALS; NO G-TUBE PER FAMILY AND PT WISHES PT TRANSFERRED BACK TO ICU TODAY; FAMILY WISHES NOTED DNI/DNR WILL FOLLOW WITH TEAM
--- NOTE | 2021-05-07 15:26 | PC.NURSE ---
Pt arrived on the unit at approximately 1235. At that time pt had a low O2 sat on HFNC and nonrebreather, respiratory accompanied pt enroute and pt was switched to BIPAP upon arrival to unit with little improvement. Low BP noted at that time as well. Levophed was to be started per MD order but IV access was lost prior to unit arrival. Rashid was placed by RN and provider was present bedside attempting to get central line access for over an hour without success. Additional provider notified at that time to assist with insertion. Pt began to deteriorate at approximately 1420, HR displaying sinus bradycardia on the monitor, and BP continuing to drop. Provider successfully gained central line access at this time as the pt began to arrest. RN asked provider for code status clarification multiple times throughout and provider confirmed that pt was DNI/DNR according to transferring MD's note earlier that day. ICU MD orders were given to RN bedside during this event. MD ordered RN to administer epinephrine x 1 at 1422 and at that time the RN again clarified code status and insisted on calling a code per hospital policy. Provider declined and stated that it was not a necessity. RN administered another dose of epinephrine x 1 per MD order at 1424. At 1425 asystole displayed on the monitor and pt did not have a pulse, provider initiated compressions at that time and had RN take over while he bagged the pt stating that it was only to circulate the administered epinephrine. Sodium bicarb administered x 1 by RN per provider order at 1430 with no effect. Pulse check again performed at 1433 and the pt had no pulse at that time. Pt rhythm showed asystole on the monitor and time of was pronounced by provider at 1437. Organ bank was notified at 1450 (case # [id number]) and pt was denied on both accounts. Healthcare proxy brought in from waiting room accompanied by two other family members to see pt and speak with MD. Multiple other people were contacted by family without staff knowing, being very disruptive in hospital and on unit, refusing to abide by hospital visiting policy. Hospital security had to be involved as family members bypassed the auxiliary engineer desk in the lobby and demanded entry to ICU. The family was reminded of the visiting policy and were escorted to the waiting room until ICU staff came to get them.
--- NOTE | 2021-05-07 16:57 | PM.CCPN ---
Subjective Subjective Date of Service: 05/07/21 Interval History: I was called to the 4th floor by Dr. Crawford to see Mrs. Clemons because of hypotension, unresponsiveness, and lack of IV access. The patient is well known to me from when she was in the ICU with COVID pneumonia.? Mrs. Clemons is a 65 yo F with PMHx of the following: ? CAD, s/p PTCA and stent ? Mild , last echo EF 60-65% ? COPD ? HTN ? CVA ? Obesity ? Diabetes w diabetic polyneuropathy. ?On insulin. ? Dyslipidemia ? GERD ? Headache ? Arthritis ? Osteopenia ? Solitary pulmonary nodule ? Non-toxic multinodular goiter ? Psychiatric dz on abilify At baseline she lived with her daughter, was ambulatory with a walker.? Not very active.? ? significant depression. HISTORY OF PRESENT ILLNESS: ?The patient was previously vaccinated for COVID. ?The patient had been diagnosed with COVID-19 on 03/21 after being symptomatic for the prior few weeks.? (I am estimating sx onset day as 03/19, but could be as much as a week or two earlier).? She presented to the ED on March 26 complaining of severe shortness of breath and was admitted to Medicine with dx of COVID pneumonia. She was tx to ICU and intubated on 03/29. ?Baricitinib was added. ?FiO2 declined progressively from the 100% range to 30% by Apr 05. ?She was extubated on April 11.? She had an ICU myopathy and was encephalopathic with possibly a severe hypoactive delirium.? She required a KOfeed tube for feeding.? She was transferred out of ICU on April 16 on 40% FiO2 by high-flow nasal cannula.? On April 22, her FiO2 requirement began to rise.? She was put on a Johnson nasal cannula, and a non-rebreather mask was added. Reading the medical progress notes, it is difficult to discern the nature and events of her hospital course, and her management strategy.? I do note that on April 29, it is noted that the patient had a ?code blue but recovered quickly?.? This was reportedly asystole, thought due to hypoxemia, due to the patient taking off her mask.? [facility] that starting on April 29, her FiO2 was up to 100%, and remained at that level for the remainder of her hospital stay. The notes indicate that the patient remained lethargic, frail, and weak.? Her nasal feeding tube was removed and she was taking minimal po intake.? The family declined a G-tube.? She was getting Lasix for possible diastolic heart failure.? Chest x-ray showed worsening bilateral patchy airspace opacities, with increasing pleural effusions.? The patient was restarted on high-dose steroids.? On May 03, the patient's daughter decided there would be no further intubation, and code status was changed to DNI. A rapid response was called on May 04 because the patient was satting in the 80s on 100% high-flow.? The patient was given Dilaudid.? She was given both high-flow and non-rebreather oxygen.? The daughter again agreed that there would be no intubation. According to Dr. Crawford, this morning the patient became less responsive, and hypotensive with nonpalpable blood pressure, and increased work of breathing.? He spoke with the patient's daughter who was ?inclined not to reintubate and is also okay with no CPR?.? Dr. Crawford called me, and I went up to the 4fth floor to see the patient at approximately noon.? At that time, the patient had no IV access.? The patient?s eyes were open, but she was minimally responsive to stimulation.? Respirations were rapid and shallow on the HFNC + NRBFM, classic ventilatory failure.? Heart rate was 90s. I examined the patient and was unable to find any access, including in the neck and chest veins. I spoke with the patient's daughter. She said right up front that she did not want her mother intubated.? I reiterated Dr. Crawford?s comments that things looked very grim.? It was not clear at all to me or to Dr. Crawford what the etiology of the problem was, but after discussion with the daughter and with Dr. Crawford, I said we would bring her down to the ICU and see what we could do, given that it was clear that she couldn't be adequately cared for on the floor.? It seemed to me that the daughter understood very clearly our message that the situation was grave and that her mother was not likely to survive. ?After multiple attempts by multiple practitioners, a 22 gauge IV was achieved in the patient's thumb and she was started on IV fluids.? The patient was brought down to ICU on NRBFM, and arrived at approximately 1235. The patient?s IV infiltrated some time during transport or after arrival to the ICU.? Initial HR was 91, BP 94/49.? RR was 40?s on the NRB and HFNC, with Sat in the ?70s.? We put her on BiPAP 12/8/100%, with RR still 40, VT about 450cc.? She had no JVD at 30?.? No edema.? We immediately set about trying to achieve IV access. Quick ECHOCARDIOGRAM (immed prior to ultrasound for central venous access):? Image quality:? Fair.? Findings: 1. Normal left ventricular size and contractility, normal ejection fraction.? No RWMAs noted. 2. Probably normal RV size and function. 3. Aortic valve noted to be trileaflet with at least 1+ AI. 4. Normal mitral valve architecture, with no MR by color-flow. 5. Normal tricuspid valve architecture, with 1+ TR by color-flow.? Continuous wave Doppler envelope measured 2.0 m/sec.? Gradient 16mm. 6. IVC measured 1.6 cm with approximately 25% inspiratory collapse.? Estimated CVP approximately 8 mm.? RVSP estimate 24 mm. Ultrasound for central venous access proved to be very difficult bec of the patient's high respiratory rate and vigorous respiratory pattern.? I started on the left side.? There was great difficulty finding a vein because of the patient's breathing pattern.? We tried to lay the patient flat, but her tidal volumes dropped precipitously, so we had to put her in the very slightly head-up position. ?The infraclavicular subclavian vein was easily identified by ultrasound, but collapsed readily with every inspiration.? That did not appear a promising route.? I went to the supraclavicular area.? The subclavian artery was easily found, but no vein.? I went to the jugular area.? Again the carotid was easily found.? I found one smallish vein that looked approachable.? After prep and drape, I was able to cannulate the vein and draw 1 cc of blood, but was unable to thread the wire.? The needle was withdrawn.? I spent some time ultrasounding the neck and was unable to find a good vein.? The primary problem was the patient's breathing.? I took down the sterile field and went over to the right side.? Same problem.? I was unable to find a good vein because of the patient's breathing. I asked Dr. Tinoco to come up and assist me.? He came up immediately. When we put the patient in Trendelenburg position, we were able to see a larger vein, but there was significant venous collapse with every inspiratory effort.? He made multiple attempts at cannulating the right internal jugular vein.? We were able to very clearly see the needle going into the vein, and he was able to aspirate blood, but he was unable to achieve continuous aspiration, and unable to thread the wire. After multiple attempts, over a period of about a minute, the patient's breathing slowed and her heart rate dropped.? It was clear that she was about to arrest.? We abandoned the internal jugular approach, and as she stopped breathing, we began Ambu ventilation,? At that point, I did a blind right subclavian stick, and cannulated the vein on the first attempt, and placed a CVC (separate procedure note).? The patient became severely bradycardic.? We immediately injected 1 amp of epinephrine and I started chest compressions to circulate the epi.? We were getting excellent chest compressions.? After 30-60 sec of chest compressions, the heart rate picked up.? We gave another amp of epinephrine and an amp of bicarb.? We got return of a pulse, with a blood pressure in the 80s.? The patient resumed spontaneous respiratory efforts at a slow rate.? We put the BiPAP back on and brought the patient's daughter into the room (the purpose being for her to be at the bedside as her mother ).? A couple of minutes or so later the heart rate slowed and the patient became asystolic.? There was no spontaneous respiratory effort and no pulse.? The patient at 14:37. (My time with the patient 12:00-16:34.) I reviewed the patient's chart at length, and spoke to the entire family in the waiting room.? I gave them my view of the patient's hospital course and what I think happened today, which is that her respiratory effort likely just gave out.? It is my opinion that regardless of what happened today, there was virtually no chance that the patient was going to survive this hospitalization.? (I discussed that with Dr. Crawford this evening. From reading the notes, it's not clear to me that the very poor prognosis was concretely discussed w the family.) The family seems to have accepted my explanation and discussion with them. Cause of will be noted as acute respiratory failure secondary to COVID pneumonia. IMPRESSION: ?65-year-old lady with multiple medical problems, including coronary and lung disease, diabetes. 1. Underlying COPD. 2. Bilat COVID pneumonia. 3. Hypoxemic respiratory failure, secondary to above. 4. Cardiac arrest. 5. SUDEEP. 6. Hyperglycemia. ?Worsened 2? increased steroid dose. ?On insulin drip. ?Restarting her tube feed, will have to go up on the drip. 7. ID: ?Possible superimposed Staph aureus pneumonia.? (Given the Gram stain, acinobacter pneumonia was unlikely.) 8. Neuro/psych. ?ICU myopathy, with metabolic encephalopathy/hypomanic delirium. 9. At least moderate, if not severe protein calorie malnutrition. Critical care time today (excluding procedures): ?2.5+ hours. Critical Care Time (minutes): 150 Physical Exam Vital Signs: Vital Signs: Last Vital Signs Temp 98.2 F 05/07/21 14:00 Pulse 91 05/07/21 14:00 Resp 39 H 05/07/21 14:00 BP 94/49 L 05/07/21 14:00 Pulse Ox 89 L 05/07/21 14:00 Body Mass Index 30.4 Objective Data Labs CBC & Chem 7: 04/30/21 06:59 05/02/21 21:59 Labs: Laboratory Results - last 24 hr 05/06/21 05/07/21 05/07/21 20:17 07:16 11:14 POC Glucose 131 H 147 H 167 H Microbiology Microbiology Results: Microbiology 04/12/21 22:59 Blood - Venous Blood Culture - Final No growth after 5 days. 04/12/21 22:59 Blood - Venous Blood Culture - Final No growth after 5 days. 04/12/21 00:00 Urine clean catch - Urine lopez top Urine Culture - Final No growth. 04/09/21 09:42 Blood - Venous Blood Culture - Final No growth after 5 days. 04/09/21 09:32 Blood - Venous Blood Culture - Final No growth after 5 days. 04/09/21 19:50 Sputum - Suctioned Gram Stain - Final 04/09/21 19:50 Sputum - Suctioned Sputum Culture - Final Staphylococcus aureus Acinetobacter baumannii 04/05/21 07:25 Blood - Venous Blood Culture - Final No growth after 5 days. 04/05/21 07:25 Blood - Venous Blood Culture - Final No growth after 5 days. 04/05/21 08:42 Urine Catheterized - Rashid Catheter Urine Culture - Final Preethi glabrata 04/05/21 08:42 Sputum - Suctioned Gram Stain - Final 04/05/21 08:42 Sputum - Suctioned Sputum Culture - Final 04/01/21 14:28 Sputum - Suctioned Gram Stain - Final 04/01/21 14:28 Sputum - Suctioned Sputum Culture - Final Preethi albicans 03/26/21 16:43 Blood - Venous Blood Culture - Final No growth after 5 days. 03/27/21 Unknown Urine Catheterized - Rashid Catheter Urine Culture - Final Escherichia coli 03/26/21 16:43 Blood - Venous Blood Culture - Final Escherichia coli Quality Stroke Does the patient have a stroke diagnosis?: No VTE Prior VTE?: No VTE Risk Level:: Medical - moderate - high VTE Device Contraindication: Treatment Not Indicated VTE Drug Contraindication: N/A - Med Ordered Critical Care Time Critical Care Time (minutes): 150
--- NOTE | 2021-05-07 17:00 | P.PCNCC_ITS ---
Procedures Date of Service Date of Service: 05/07/21 Central Line Placement Right SC: Central Line Comments: PROCEDURE:? Insertion right subclavian central venous line. INDICATION:? Acute respiratory failure, cardiac arrest. For IV access. ANESTHESIA:? None. PROCEDURE:? After multiple failed attempts to achieve visualization of a central vein, including the femoral veins, emergent cannualtion of the right subclavian vein was achieved on the first pass with the 18 gauge thin wall.? The wire was threaded without incident.? A 7 [place] by 16 cm triple-lumen catheter was advanced into the vein up to the hub via the Seldinger technique without incident.? There was good blood return x3. Further resuscitative efforts as detailed in my progresss note. No complications noted. Consent for Procedure: Emergent-no informed consent obtained
--- NOTE | 2021-05-08 12:57 | P.DN_ITS ---
Discharge Sum: Prov Provider Primary care physician: Anali Negron MD Consults: 03/26/21 22:24 Consult to Neurology Routine Consulting Provider: [facility] Reason for consultation: Aphasia; ?Anoxic injury; Consult to Pulmonology Routine Consulting Provider: Lester Terrazas Reason for consultation: Covid PNA/hypoxia 04/05/21 06:48 Consult to Infectious Diseases Routine Consulting Provider: Alley Krishnan Reason for consultation: CASPO 04/16/21 10:43 Consult to Psychiatry Routine Consulting Provider: [facility] Reason for consultation: profound post extubation depression Has provider been notified: Yes 04/18/21 16:09 Consult to Neurology Routine Consulting Provider: [facility] Reason for consultation: Query encephalopathy 04/23/21 09:33 Consult for Calorie Count Routine Reason for consultation: decreaed intake 05/01/21 11:21 Consult to Pulmonology Routine Consulting Provider: Lester Terrazas Reason for consultation: hypoxia Has provider been notified: Yes Discharge Sum: Diag Contributing Factors (1) Generalized anxiety disorder: (2) Major depression: (3) Pneumonia due to COVID-19 virus: (4) Respiratory failure with hypoxia: Discharge Sum: Summary Date and Time Date of admission: 03/26/21 22:24 Date of : 05/08/21 Time of : 14:37 Summary Details: ? NOTE DISCHARGE DIAGNOSES: 1. Underlying COPD. 2. Underlying DM 3. Underlying CAD 4. Bilat COVID pneumonia. 5. Hypoxemic respiratory failure, secondary to above. 6. Cardiac arrest. 7. SUDEEP. 8. Hyperglycemia. ?Worsened 2? increased steroid dose. ?On insulin drip. ?Restarting her tube feed, will have to go up on the drip. 9.?Possible superimposed Staph aureus pneumonia. 10.?ICU myopathy, with metabolic encephalopathy/hypomanic delirium. 11. At least moderate, if not severe protein calorie malnutrition. Deonte was a 65 yo F with PMHx of the following: ? CAD, s/p PTCA and stent ? Mild , last echo EF 60-65% ? COPD ? HTN ? CVA ? Obesity ? Diabetes w diabetic polyneuropathy. ?On insulin. ? Dyslipidemia ? GERD ? Headache ? Arthritis ? Osteopenia ? Solitary pulmonary nodule ? Non-toxic multinodular goiter ? Psychiatric dz on abilify At baseline she lived with her daughter, was ambulatory with a walker.? Not very active.? ? significant depression. HISTORY OF PRESENT ILLNESS: ?The patient was previously vaccinated for COVID. ?The patient had been diagnosed with COVID-19 on 03/21 after being symptomatic for the prior few weeks.? She presented to the ED on March 26 complaining of severe shortness of breath and was admitted to Medicine with dx of COVID pneumonia, and treated in the usual fashion.. She was tx to ICU and intubated on 03/29. ?Baricitinib was added. ?FiO2 declined progressively from the 100% range to 30% by Apr 05. ?She was extubated on April 11.? She had an ICU myopathy and was encephalopathic with possibly a severe hypoactive delirium.? She required a KOfeed tube for feeding.? She was transferred out of ICU on April 16 on 40% FiO2 by high-flow nasal cannula.? On April 22, her FiO2 requirement began to rise.? She was put on a Johnson nasal cannula, and a non-rebreather mask was added. On April 29, the patient had a code blue but recovered quickly.? This was reportedly asystole, thought due to hypoxemia, due to the patient taking off her mask.? Starting on April 29, her FiO2 was up to 100%, and remained at that level for the remainder of her hospital stay. The patient remained lethargic, frail, and weak.? Her nasal feeding tube was removed and she was taking minimal po intake.? The family declined a G-tube.? She was getting Lasix for possible diastolic heart failure.? Chest x-ray showed worsening bilateral patchy airspace opacities, with increasing pleural effusions.? The patient was restarted on high-dose steroids.? On May 03, the patient's daughter decided there would be no further intubation, and code status was changed to DNI. A rapid response was called on May 04 because the patient was satting in the 80s on 100% high-flow.? The patient was given Dilaudid.? She was given both high-flow and non-rebreather oxygen.? The daughter again agreed that there would be no intubation. On the morning of Nov 10th, the patiient became less responsive, and hypotensive with nonpalpable blood pressure, and increased work of breathing.? The patient's daughter Still insisted on no intubation. She was also okay with no CPR. The patient lost her IV access.? Respirations were rapid and shallow on the HFNC + NRBFM, classic ventilatory failure.? Dr. Chano Rowe and I spoke with the patient's daughter and made clear that the situation is very grave. We transferred the patient down to the ICU to see what we could do. IV access was lost. We put the patient on BiPAP, and immediately set about trying to achieve IV access. Quick ECHOCARDIOGRAM (immed prior to ultrasound for central venous access) showed: ?1. Normal left ventricular size and contractility, normal ejection fraction.? No RWMAs noted. ?2. Probably normal RV size and function. ?3. Aortic valve noted to be trileaflet with at least 1+ AI. ?4. Normal mitral valve architecture, with no MR by color-flow. ?5. Normal tricuspid valve architecture, with 1+ TR by color-flow.? Continuous wave Doppler envelope measured 2.0 m/sec.? Gradient 16mm. ?6. IVC measured 1.6 cm with approximately 25% inspiratory collapse.? Estimated CVP approximately 8 mm.? RVSP estimate 24 mm. Ultrasound for central venous access proved to be very difficult bec of the patient's high respiratory rate and vigorous respiratory pattern. Dr. Tinoco and I spent over an hour trying to find a central vein with ultrasound, on both sides of her neck and both groins. With the patient in Trendelenburg, we were able to visualized a right internal jugular vein.? We were able to very clearly see the cannulation needle going into the vein and able to aspirate blood, but because of the rapid vigorous respiratory effort, we were unable to achieve continuous aspiration and unable to thread the wire. After multiple attempts the patient's breathing slowed and her heart rate dropped.? It was clear that she was about to arrest.? We abandoned the internal jugular approach, and as she stopped breathing, we began Ambu ventilation,? At that point, a blind right subclavian stick successfully cannulated her right subclavian vein.? The patient became severely bradycardic.? We immediately inje cted 1 amp of epinephrine and started chest compressions to circulate the epinephrine.? After 30-60 sec of chest compressions, the heart rate picked up.? We gave another amp of epinephrine and an amp of bicarb.? There was return of a pulse, with a blood pressure.? The patient resumed spontaneous respiratory efforts at a slow rate.? We put the BiPAP back on and brought the patient's daughter into the room.? A couple of minutes or so later the heart rate slowed and the patient became asystolic.? There was no spontaneous respiratory effort and no pulse.? The patient at 14:37. Cause of was noted as acute respiratory failure secondary to COVID pneumonia. Additional Data Attending physician: García Crawford MD
== END 2021-05-07 18:04 | disposition expired | DRG 207 ==
LOC: HO.ED 20:01 → HO.EDOVER 22:48 → HO.IMC 03-27 07:37 → HO.ICU 03-29 04:12 → HO.IMC 04-16 17:23 → HO.ICU 05-07 12:32
PROVIDERS: Anesthesiology; Hospitalist; Internal Medicine; Internal Medicine Cardiovascular Disease; Internal Medicine Nephrology; Internal Medicine Pulmonary Disease; Physician Assistant; Physician Assistant Medical; Registered Nurse Community Health; Admitting Provider Hospitalist; Emergency Provider Emergency Medicine; PCP Internal Medicine; Visit Provider Internal Medicine
DX: U07.1 COVID-19 (principal); J12.82 Pneumonia due to coronavirus disease 2019; J80 Acute respiratory distress syndrome; G93.41 Metabolic encephalopathy; E43 Unspecified severe protein-calorie malnutrition; R78.81 Bacteremia; N17.9 Acute kidney failure, unspecified; F05 Delirium due to known physiological condition; N39.0 Urinary tract infection, site not specified; R47.01 Aphasia; E87.0 Hyperosmolality and hypernatremia; A85.8 Other specified viral encephalitis; T17.890A Other foreign object in other parts of respiratory tract causing asphyxiation, initial encounter; J95.851 Ventilator associated pneumonia; I10 Essential (primary) hypertension; E78.5 Hyperlipidemia, unspecified; I25.10 Atherosclerotic heart disease of native coronary artery without angina pectoris; K21.9 Gastro-esophageal reflux disease without esophagitis; B96.1 Klebsiella pneumoniae [K. pneumoniae] as the cause of diseases classified elsewhere; E66.9 Obesity, unspecified; Z68.30 Body mass index [BMI] 30.0-30.9, adult; B96.20 Unspecified Escherichia coli [E. coli] as the cause of diseases classified elsewhere; X58.XXXA Exposure to other specified factors, initial encounter; F32.A Depression, unspecified; F41.1 Generalized anxiety disorder; Z91.51 Personal history of suicidal behavior; E83.42 Hypomagnesemia; E87.6 Hypokalemia; B95.61 Methicillin susceptible Staphylococcus aureus infection as the cause of diseases classified elsewhere; R13.10 Dysphagia, unspecified; I95.9 Hypotension, unspecified; E11.65 Type 2 diabetes mellitus with hyperglycemia; I11.9 Hypertensive heart disease without heart failure; Z79.82 Long term (current) use of aspirin; Z79.1 Long term (current) use of non-steroidal anti-inflammatories (NSAID); Z87.891 Personal history of nicotine dependence; Z79.899 Other long term (current) drug therapy
CPT/HCPCS: 36415; 36600; 70450; 71045; 74018; 78580; 80048; 80051; 80053; 80076; 81001; 82009; 82040; 82728; 82803; 82947; 83605; 83615; 83735; 83880; 84100; 84145; 84155; 84484; 85025; 85027; 85379; 86140; 86769; 87040; 87070; 87077; 87086; 87088; 87186; 87205; 87635; 92610; 93005; 93306; 93970; 94002; 94003; 94640; 94660; 94799; 96361; 96374; 96375; 96376; 97110; 97112; 97163; 97167; 97530; 97535; 99285; 99291; A9540; C1758; J0131; J0171; J0456; J0637; J0692; J0696; J1100; J1170; J1450; J1650; J1940; J1956; J2060; J2250; J2270; J2543; J2765; J2920; J2930; J3010; J3370; J3475